=== PATIENT | female | born 1940 | race Caucasian/White ===

== ENCOUNTER 2019-03-30 14:52 | Emergency (ER) | payer MEDICARE, SELFPAY ==
[2019-03-30] VITALS (8 sets, daily range): BP systolic 94–133; BP diastolic 43–86; PULSE 70–98; RESP 12–23; TEMP 37.2; O2SAT 94–99
--- NOTE | ~2019-03-30 | XR_ITS ---
EXAMINATION: XR chest 2V DATE: 03/30/2019 15:44 INDICATION: Shortness of breath and cough. TECHNIQUE: Frontal and lateral views of the chest were obtained. COMPARISON: Chest 2 views 12/21/2018, CT abdomen and pelvis 03/10/2019 FINDINGS: There is mild scarring at left lung apex. There is mild atelectasis in the lower lung zones . No pleural effusion or pneumothorax. The heart size is normal. There are surgical clips in right ax illa. IMPRESSION: 1. Mild atelectasis in the lower lung zones and mild scarring at left lung apex. Reviewed, dictated and finalized at location A. T TECHNICIAN IMPRESSION: 1. Mild atelectasis in the lower lung zones and mild scarring at left lung apex .
--- NOTE | 2019-03-30 15:11 | ED.URI ---
HPI - URI/Sore Throat General Chief Complaint: Upper Respiratory Infection Stated Complaint: COUGH [id number] Time Seen by Provider: 03/30/19 15:11 Source: patient Mode of arrival: ambulatory Limitations: no limitations History of Present Illness HPI Narrative: A 78 y/o female presents to the ED with c/o a dry cough for 6 days. Pt took Tessalon Perles with no relief so she called her PCP who prescribed her antibiotics and Robitussin on Sunday (2 days ago). She reports rhinorrhea, CP when coughing, and a PMHx of asthma, but denies a fever and smoking. Pertinent past history: asthma Onset (ago): day(s) (6) Description of mucous: other (none) Related Data Home Medications Medication Instructions Recorded Confirmed albuterol sulfate 90 mcg/actuation 1 puff INHALATION Q4H PRN 01/20/19 aerosol inhaler cetirizine 10 mg tablet 10 mg PO DAILY 01/20/19 glycopyrrolate 9 mcg-formoterol 2 puff INHALATION BID 01/20/19 4.8 mcg HFA aerosol inhaler methylcellulose (laxative) 500 mg 500 mg PO DAILY 01/20/19 tablet cyanocobalamin (vitamin B-12) 1,000 mcg PO DAILY 01/21/19 1,000 mcg capsule exemestane 25 mg tablet 25 mg PO DAILY 01/21/19 gabapentin 100 mg capsule 300 mg PO TID 01/21/19 multivitamin 1 cap PO DAILY 01/21/19 omega-3 fatty acids 1,000 mg 2,000 mg PO DAILY cap 02/28/19 capsule cholecalciferol (vitamin D3) 50 mcg PO DAILY 03/30/19 Allergies Allergy/AdvReac Type Severity Reaction Status Date / Time azithromycin Allergy Intermediate Rash Verified 03/30/19 15:15 baclofen Allergy Intermediate Rash Verified 03/30/19 15:15 ciprofloxacin Allergy Intermediate Rash Verified 03/30/19 15:45 Penicillins Allergy Intermediate Rash Verified 03/30/19 15:15 propoxyphene Allergy Intermediate Rash Verified 03/30/19 15:15 Sjcfibd-Wji-Urn Reductase Allergy Intermediate Rash Verified 03/30/19 15:45 Inhibitor COCONUT AdvReac Mild GAGS Uncoded 03/30/19 15:15 Review of Systems Review of Systems: Narrative: Constitutional: Negative for fever and chills. HENT: Positive for rhinorrhea. Negative for congestion. Eyes: Negative for blurred vision. Respiratory: Positive for dry cough. Negative for shortness of breath. Cardiovascular: Positive for chest pain when coughing. Gastrointestinal: Negative for nausea, vomiting, abdominal pain and diarrhea. Genitourinary: Negative for dysuria and hematuria. Musculoskeletal: Negative for back pain and neck pain. Neurological: Negative for headaches or focal motor deficit. All systems reviewed & are unremarkable except as noted in HPI and below PMFSH Past Medical History Medical History (Updated 03/31/19 @ 00:00 by [facility]) Abnormal finding of blood chemistry, unspecified Asthma BMI 26.0-26.9,adult Bronchitis (12/19/18) Chronic abdominal pain Diarrhea Diverticulitis DJD (degenerative joint disease), multiple sites Dysuria Encounter for routine adult health examination with abnormal findings Follow up GERD (gastroesophageal reflux disease) Hiatal hernia History of breast cancer in female Hyperlipidemia Hypersomnia, idiopathic IBS (irritable bowel syndrome) Lymphedema Mild reactive airways disease On fci drug therapy Pain of right heel Tachycardia Vitamin B12 deficiency Vitamin D deficiency Surgical History Surgical History History of bilateral mastectomy Family History Family History Father Family history of gout Family history of lung cancer Patient's father is Malignant neoplasm of prostate Mother Hypertension Asthma Family history of Alzheimer's disease Other Family history of allergic disorder Family history of cardiovascular disease Social History Social History Smoking status: Never smoker Second hand tobacco smoke exposure: No Alcohol intake: never Gender identity (if
--- NOTE | 2019-03-30 15:14 | ECG_ITS ---
Measurements Intervals [place] Rate: 88 P: 33 AK: 131 QRS: -26 QRSD: 122 T: 53 QT: 353 QTc: 429 Interpretive Statements SINUS RHYTHM POSSIBLE LEFT ATRIAL ENLARGEMENT LEFT BUNDLE BRANCH BLOCK ABNORMAL ECG Electronically Signed On 03-30-2019 17:00:55 MAG[employer]IC [employer] IMAGING DIRECTOR by Onofre Dior D.O.
[2019-03-30] MEDS: ALBUTEROL SULFATE NEB 2.5 MG/0.5 ML INH INHALATION (15:25)
[2019-03-30] MEDS: IPRATROPIUM BR 0.02% INH SOLN 0.5 MG/2.5 ML VIAL INHALATION (15:25)
[2019-03-30 15:32] LABS: Basophils Percent Auto 0.5 % (0.2-1.2); Eosinophils Percent Auto 0.8 % (0-4.4); Hemoglobin 13.7 g/dL (12.0-15.0); Immature Granulocyte Absolute 0.01 K/mm3 (0.00-0.031); Immature Granulocyte Percent A 0.3 % (0-0.5); Lymphocytes Absolute Auto 0.72 K/mm3 (0.9-3.2); Mean Corpuscular HGB Conc 32.6 g/dl (32-36); Mean Corpuscular Hemoglobin 33.3 pg (26-34); Mean Corpuscular Volume 102.2 fl (80-100); Mean Platelet Volume 10.5 fl (7.4-10.4); Monocytes Absolute Auto 0.7 K/mm3 (0.1-0.6); Monocytes Percent Auto 16.3 % (2.6-8.5); Neutrophils Absolute Auto 2.6 K/mm3 (1.3-6.7); Neutrophils Percent Auto 64.1 % (45.5-73.1); Platelet Count Result 187 k/mm3 (150-375); Red Blood Count 4.11 M/mm3 (4.2-5.4); Red Cell Distribution Width 12.9 % (11.5-14.5)
[2019-03-30 15:45] LABS: Blood Urea Nitrogen 9 mg/dL (7-17); Carbon Dioxide 26 mmol/L (22-30); Chloride 99 mmol/L (98-107); Estimated CRCL calculation 42 ml/min; Estimated Glomerular Filt Rate > 60; Glucose 87 mg/dL (65-105); Potassium 4.1 mmol/L (3.4-5.0); Sodium 137 mmol/L (137-145)
[2019-03-30 15:56] LABS: Troponin I 0.013 ng/mL (0.000-0.034)
[2019-03-30] MEDS: SODIUM CHLORIDE 0.9% IV 1,000 ML 999 ML IV CONT (17:05)
== END 2019-03-30 20:00 | disposition home or self-care (01) ==
PROVIDERS: Emergency Provider Emergency Medicine; PCP Internal Medicine
DX: J06.9 Acute upper respiratory infection, unspecified (principal); J45.909 Unspecified asthma, uncomplicated; K21.9 Gastro-esophageal reflux disease without esophagitis; E78.5 Hyperlipidemia, unspecified; E53.8 Deficiency of other specified B group vitamins; Z85.3 Personal history of malignant neoplasm of breast; Z90.13 Acquired absence of bilateral breasts and nipples; E55.9 Vitamin D deficiency, unspecified; I44.7 Left bundle-branch block, unspecified; R94.31 Abnormal electrocardiogram [ECG] [EKG]
CPT/HCPCS: 36415; 71046; 80048; 84484; 85025; 87804; 93005; 94640; 96360; 96361; 99284; J7030

== ENCOUNTER 2019-04-30 09:00 | Outpatient (RCR) | payer MEDICARE, SELFPAY ==
--- NOTE | 2019-01-31 09:41 | PTOPEVAL ---
PHYSICAL THERAPY EVALUATION AND PLAN OF CARE 01-31-19 The PT evaluation was completed for the diagnosis of R trunk and UE lymphedema. Plan of treatment has been established for 2x/week for 4 weeks. Thank you for referring Mrs. Woods to [facility]. Please review, sign, date and return this plan of care LINDA. I agree with and certify that the following plan of care is medically necessary. Referring Physician Date Attending Provider: Dr. Leticia Segundo *PT Outpatient Evaluation Start: 01/31/19 08:24 Freq: Status: Active Protocol: Document 01/31/19 08:15 LEON (Rec: 01/31/19 09:13 LEON [email or web address]) Therapy Assessment Status Assessment Status Assessment Status Evaluation Outpatient Past Medical History Neurological History Hx Migraine Yes: history- have decreased to 1/few months Cardiovascular History Hx Cardiac Disorders No Significant History Respiratory History Hx Asthma Yes Hx Bronchitis Yes: just completed steroids Gastrointestinal History Hx Diverticulitis Yes: part of colon removed Hx Gall Bladder Disease Yes: gall bladder removed Hx Irritable Bowel Yes Genitourinary History Hx Urinary Tract Infection Yes: just completed meds Musculoskeletal History Hx Arthritis Yes: hands Hx Joint Replacement Yes: B TKR Hx Orthopedic Surgery Yes: L rot cuff repair Endocrine History Hx Endocrine Disorders No Significant History HEENT History Hx Other HEENT Disorders Yes: wear glasses Integumentary History Hx Shingles Yes: upper back- cont to have itching Evaluation Information Problem Diagnosis lymphedema of R chest wall Onset 6 months ago Subjective Information gradual increase in swelling Query Text:As Reported By Patient/ Family Prior Level of Function Activity Level (Last 3 Months) 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
--- NOTE | 2019-02-10 11:08 | PCPTNOTE ---
Patient called & cancelled scheduled appointment this date due to [weather ]
--- NOTE | 2019-02-27 11:00 | PTOPEVAL ---
PHYSICAL THERAPY RE-EVALUATION AND UPDATED PLAN OF CARE 02-27-2019 Mrs. Woods has received 8 Physical Therapy sessions, from January 31 to today. She has improved with: increased R shoulder flexion AROM, decreased circumferential measurement with 2 of the 3 and the 3rd is the same. Di continues to have pain over R shoulder and forearm with fibrosis and L anterior trunk; lateral trunk edema on R and L sides. Recommend continue PT 2x/week for 4 weeks. Continue to work on appropriate compression garments for her, continue to progress education and home exercises. And submitting her information for home intermittent compression unit. Thank you for referring Mrs. Woods to [facility] Please review, sign, date and return this plan of care LINDA. I agree with and certify that the following plan of care is medically necessary. Referring Physician Date Attending Provider: Dr. Leticia Segundo *PT Outpatient Re-Evaluation Document 02/27/19 10:00 LEON (Rec: 02/27/19 10:59 LEON [email or web address]) Re-Evaluation Information Problem Subjective Information Di reports: long sleeve Query Text:As Reported By Patient/ shirts still tight on R upper Family arm; have compression camisole but does not fit tight enough over upper trunk--to return for smaller size; have compression sleeve-is wearing more when using arm, not all time- not sure if it helps or not, does feel better when it is on; still have swelling over sides; is doing her shoulder exercises and self massage; Pain Assessment Pain Scale Pain Scale Used Numeric (1 - 10) Self Report Pain Assessment Right Arm(s) Reported Pain Level 0 Radicular Pain Location posterior R shoulder and L shoulder; very sore and tired like feeling Pain Frequency Acute Other Pain Description lateral R mid humerus pain Current Pain Intensity 0 Lowest Pain Intensity 0 Greatest Pain Intensity 4 Pain Level Goal 0 Interventions Used By Clinicians Taping Other Alleviating Interventions compression Additional Pain Comments kinesiotape strip over R lateral shoulder/humerus decr pain Pain Score Pain Score 0: Self Report Upper Extremity Range of Motion General Upper Extremity Range of Motion Reason Not Measured WNL/Left Gross Upper Extremity Range of Motion R shoulder flexion in standing Comments 130'; supine R shoulder ER- hand behind head, upper arm is
--- NOTE | 2019-02-27 13:00 | PCPTNOTE ---
discussed intermittent compression pump was discussed with pt; she signed consent and information was faxed to [facility] for authorization for home intermittent compression pump.
--- NOTE | 2019-03-05 09:30 | PCPTNOTE ---
pt called and canceled today's appt, due to being ill;
--- NOTE | 2019-03-07 13:36 | PCPTNOTE ---
measurements taken during today's treatment session: in standing: chest 84 cm; abdomen/belly button 88 cm;
--- NOTE | 2019-03-13 09:23 | PCPTNOTE ---
Pt called today and cancelled today's and tomorrow's appointment due to a flair up in her diverticulitis. Di stated she as going to contact her doctor.
--- NOTE | 2019-03-26 10:43 | PCPTNOTE ---
pt called and canceled today's reeval due to illness;
--- NOTE | 2019-04-09 12:36 | PTOPEVAL ---
PHYSICAL THERAPY RE-EVALUATION AND UPDATED PLAN OF CARE 04-09-2019 Mrs. Woods has received 13 PT sessions, from January 31 to today. She has called/canceled 3 appointments this reeval time frame, due to illness/ flu. She went to the ER due to flu, has completed 2 rounds of antibiotics and is not quite over it yet. Compared to the reevaluation on 02-27-2019: improved with: increased R shoulder flexion AROM; less tenderness over R UE, decreased measurements of all circumferential measurements 1-3 cm; compared to initial eval, R UE measurement has decreased by 8.6 cm; the compression camisole she has fits appropriately and her information has been forwarded for insurance authorization for home intermittent compression pump Her pain rating has increased of R shoulder and trunk- no longer has times of 0/10 rating, always tender, sore and she continues to have edema over R and L lateral-upper trunk, with firmness of tissue over R anterior-proximal forearm. PT is recommended to continue 0-2x/week for 3 weeks. She wants to try to continue on her own and be able to call if any concerns or return for additional sessions if needed. And to continue to complete the process for obtaining a home intermittent compression unit. Thank you for referring this patient to [facility]. Please review, sign, date and return this plan of care [facility]. I agree with and certify that the following plan of care is medically necessary. Referring Physician Date Attending Provider: Dr. 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; top of R arm is about the same, sleeves do fit little better; have compression bra and camisole, wearing them; have been doing self massage; is interested in the compression pump; wants to try to stop therapy and see how she does doing self massage and getting the pump to manage her swelling; Pain Assessment Pain Scale Pain Scale Used Numeric (1 - 10) Self Report Pain Assessment Left Shoulder(s) Reported Pain Level 3 Pain Description Tender on Palpation Radicular Pain Location upper lateral trunk tender to touch Current Pain Intensity 3 Lowest Pain Intensity 0 Greatest Pain Intensity 3 Right Arm(s) Reported Pain Level 3 Other Pain Description tender over trunk and top arm Current Pain Intensity 3 Lowest Pain Intensity 3 Gaurang
--- NOTE | 2019-04-09 13:12 | PCPTNOTE ---
pt's reevaluation was faxed to [facility] Medical rep Columba Monge, for authorization with her insurance for home intermittent compression pump. Pt has signed a release in the past, and agrees to her info being faxed.
--- NOTE | 2019-04-30 09:46 | PTOPEVAL ---
PHYSICAL THERAPY DISCHARGE 04-30-2019 Mrs. Woods has received 14 Physical Therapy sessions, from January 31 to today for the diagnosis of s/p B mastectomy and lymphedema. Education has been completed for self manual therapy, lymphedema skin care, use of compression garments--camisole and lateral trunk swell pads and UE exercises. She is receptive to the education and performing home exercises and self massage. During the therapy sessions, she has had multiple illness--cold/flu, sinus and recently in the hospital for diverticulitis, just completed her antibiotics today. Compared to the last reevaluation: her pain rating for L shoulder is the same/ R shoulder has increased slightly, with pain over deltoid area; AROM of R shoulder has decreased slightly and L is about the same; circumferential measurements of trunk: arm pit increased by 1.5 cm, breast incision decreased by 2 cm and waist is the same; she continues to have tenderness and edema over R and L upper-lateral trunk and lateral scapular areas. She is still awaiting approval for a home intermittent compression pump. This would be of benefit to her, to help decrease the lateral trunk and scapular edema. She is doing her home exercises and self massage, without an improvement. Thank you for referring Di to [facility]Note 2[facility] Please review, sign, date and return this discharge LINDA. I agree with and certify that the following plan of care is medically necessary. Referring Physician Date Attending Provider: Dr. 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
== END 2019-05-01 08:10 | disposition home or self-care (01) ==
LOC: ANHPT 09:00
PROVIDERS: PCP Internal Medicine
DX: I89.0 Lymphedema, not elsewhere classified (principal); C50.011 Malignant neoplasm of nipple and areola, right female breast; C50.012 Malignant neoplasm of nipple and areola, left female breast; Z17.0 Estrogen receptor positive status [ER+]; K57.30 Diverticulosis of large intestine without perforation or abscess without bleeding
CPT/HCPCS: 36415; 80053; 80061; 82542; 82607; 82746; 83036; 85025; 97110; 97140; 97161

== ENCOUNTER 2019-07-03 15:12 | Outpatient (CLI) | payer MEDICARE, SELFPAY ==
[2019-07-03 16:07] LABS: Blood Urea Nitrogen 13 mg/dL (7-17); Carbon Dioxide 29 mmol/L (22-30); Chloride 105 mmol/L (98-107); Cholesterol 227 mg/dL (0-200); Estimated Glomerular Filt Rate > 60; Glucose 85 mg/dL (65-105); HDL Direct 54 mg/dL; Sodium 140 mmol/L (137-145); Triglycerides 280 mg/dL (<150)
[2019-07-03 16:17] LABS: LDL Cholesterol Direct 134 mg/dL
[2019-07-03 16:42] LABS: Hemoglobin A1C 5.5 % (<5.7)
[2019-07-03 17:40] LABS: Folic Acid > 20.0 ng/mL (2.76->20); Vitamin B12 > 1000.0 pg/mL (239-931)
[2019-07-07 12:50] LABS: Vitamin D 1,25 (OH)2 Total 72 pg/mL (18-72); Vitamin D2 1,25 (OH)2 <8 pg/mL; Vitamin D3 1,25 (OH)2 72 pg/mL
== END 2019-07-03 15:13 | disposition home or self-care (01) ==
PROVIDERS: PCP Internal Medicine; Visit Provider Internal Medicine
DX: E55.9 Vitamin D deficiency, unspecified (principal); Z79.899 Other long term (current) drug therapy; E53.8 Deficiency of other specified B group vitamins; E78.2 Mixed hyperlipidemia
CPT/HCPCS: 36415; 80048; 80061; 82607; 82652; 82746; 83036

== ENCOUNTER 2019-07-07 15:15 | Outpatient (CLI) | payer MEDICARE, SELFPAY ==
--- NOTE | ~2019-07-07 | XR_ITS ---
EXAMINATION: XR chest 2V EXAM DATE: 07/07/2019 16:23 INDICATION: Difficulty breathing, cough. TECHNIQUE: Frontal and lateral projections of the chest obtained and reviewed. Comparison is made to prior examination from 03/30/2019. FINDINGS: The lungs are clear. There are no pleural effusions. The cardiomediastinal silhouette is within normal limits. There is no pneumothorax suspected. Right axillary surgical clips. There are mild bony degenerative changes. There is no significant interval change. IMPRESSION: No acute cardiopulmonary findings. Reviewed, dictated and finalized at location A.
[2019-07-07 16:07] LABS: Basophils Percent Auto 0.4 % (0.2-1.2); Eosinophils Absolute Auto 0.1 K/mm3 (0-0.3); Eosinophils Percent Auto 1.1 % (0-4.4); Hematocrit 40.6 % (37.0-47.0); Immature Granulocyte Absolute 0.01 K/mm3 (0.00-0.031); Immature Granulocyte Percent A 0.2 % (0-0.5); Lymphocytes Absolute Auto 1.24 K/mm3 (0.9-3.2); Lymphocytes Percent Auto 23.3 % (18.3-44.2); Mean Corpuscular Hemoglobin 33.5 pg (26-34); Mean Corpuscular Volume 104.6 fl (80-100); Mean Platelet Volume 10.2 fl (7.4-10.4); Monocytes Absolute Auto 0.6 K/mm3 (0.1-0.6); Monocytes Percent Auto 11.8 % (2.6-8.5); Neutrophils Absolute Auto 3.4 K/mm3 (1.3-6.7); Neutrophils Percent Auto 63.2 % (45.5-73.1); Platelet Count Result 240 k/mm3 (150-375); Red Blood Count 3.88 M/mm3 (4.2-5.4); Red Cell Distribution Width 13.8 % (11.5-14.5); White Blood Count 5.3 K/mm3 (4.5-10.0)
[2019-07-07 16:22] LABS: Influenza Control Positive
== END 2019-07-07 15:16 | disposition home or self-care (01) ==
PROVIDERS: PCP Internal Medicine; Visit Provider Internal Medicine
DX: R05 Cough (principal); R68.89 Other general symptoms and signs; R69 Illness, unspecified
CPT/HCPCS: 36415; 71046; 85025; 87804

== ENCOUNTER 2019-07-28 14:01 | Outpatient (CLI) | payer MEDICARE, SELFPAY | END 2019-07-28 14:02 | disposition home or self-care (01) | PROVIDERS: PCP Internal Medicine; Visit Provider Nurse Practitioner Family | DX: J30.1 Allergic rhinitis due to pollen (principal); J84.9 Interstitial pulmonary disease, unspecified | CPT/HCPCS: 36415; 82785; 86003; 86331; 86606; 86609 ==

== ENCOUNTER 2019-08-12 08:45 | Outpatient (CLI) | payer MEDICARE, SELFPAY ==
--- NOTE | 2019-08-12 09:23 | ECHO_ITS ---
Patient Info Name: Di Woods Age: 78 years : 1940 Gender: Female Ht: 60 in Wt: 135 lbs BSA: 1.63 m2 HR: 85 bpm BP: 148 / 79 mmHg Technical Quality: Good Exam Date: 08/12/2019 9:32 AM Exam Location: [facility] Patient Status: Outpatient Admit Date: 08/12/2019 Staff Ordering Physician: Jamie Bush APRN Document Reviewer: Brittany Camargo RDCS Attending Provider: Jamie Bush APRN Referring Physician: Eleazar SERVIN; Exam Type: CA echo doppler color flow Study Info Indications R06.02 - Shortness of breath Complete two-dimensional, color flow and Doppler transthoracic echocardiogram is performed. Summary 1. Left ventricular chamber dimension is normal. 2. Left ventricular systolic function is normal, estimated at 65-70%. 3. The left ventricular diastolic function is grade I diastolic dysfunction. 4. E/e' 16 is elevated. 5. Global longitudinal strain is mildly abnormal at -16.1%. 6. There is mild aortic valve sclerosis. 7. There is mild mitral valve regurgitation. 8. There is trace tricuspid valve regurgitation. 9. No pulmonary hypertension, estimated pulmonary arterial systolic pressure is 37 mmHg. Left Ventricle E/e' 16 is elevated. Global longitudinal strain is mildly abnormal at -16.1%. Left ventricular chamber dimension is normal. Left ventricular systolic function is normal, estimated at 65-70%. The left ventricular diastolic function is grade I diastolic dysfunction. Right Ventricle Right ventricular chamber dimension is normal. Right ventricular systolic function is normal. Left Atria Left atrial chamber dimension is normal. Right Atria Right atrial chamber dimension is normal. Aortic Valve The aortic valve is trileaflet. There is mild aortic valve sclerosis. There is no aortic valve stenosis. There is no aortic valve regurgitation. Pulmonic Valve There is no pulmonic regurgitation. Mitral Valve There is no mitral valve stenosis. There is mild mitral valve regurgitation. Tricuspid Valve There is trace tricuspid valve regurgitation. No pulmonary hypertension, estimated pulmonary arterial systolic pressure is 37 mmHg. Pericardium/Pleural There is no pericardial effusion. Inferior Vena Cava Normal inferior vena cava with >50% collapse upon inspiration consistent with normal right atrial pressure, 5 mmHg. Aorta The aortic root size at the sinus of Valsalva is normal. Left Ventricular Outflow Tract Name Value Normal LVOT 2D LVOT Diameter 1.9 cm LVOT Doppler LVOT Peak Gradient 6 mmHg LVOT Mean Gradient 3 mmHg LVOT VTI 25 cm LVOT VTI/AV VTI Ratio 0.9 LVOT Stroke Volume 71 ml LVOT CO 4.9 l/min LVOT CI 3.0 l/min/m2 Pulmonic Valve Name Value Normal
--- NOTE | 2019-08-13 13:57 | WPDPFTINT ---
PFT Interpretation PFT Interpretation: DOS: 08/12/2019 REQUESTING: Jamie Bush NP REASON FOR TESTING: Shortness of breath PULMONARY FUNCTION TESTS Results are reproducible. Spirometry: FEV1 121%, FVC 96%, FEV1% is 85%, all are normal. There is a minimal response to bronchodilator, 11% increased in FEV1% and 17% in [id number]%.. Lung volumes: TLC 106%, RV 112%, normal. RV/TLC is 45%, increased consistent with air trapping. Diffusion: DLCO 101%, normal. DLCO/VA is increased, 144%. Flow volume loop: Normal. IMPRESSION: Normal spirometry, mild air trapping which is new, and normal DLCO. Increase in flows with bronchodilator suggests airway responsiveness to bronchodilator, and increased DLCO/VA suggests asthma, polycythemia, or pulmonary hemorrhage. This PFT is compared to 07/20/2016 with similar results. FEV1 was 109%, now 121%; RV/TLC is higher now showing air trapping, DLCO/VA is higher 131% compared to 144% now. Katherine Wilson MD
--- NOTE | 2019-08-13 14:12 | WPDSIXMINUTE ---
Six Minute Walk Six Minute Walk: DOS: 08/12/2019 REQUESTING: Jamie Bush NP REASON FOR TESTING: shortness of breath SIX MINUTE WALK This test was conducted per ATS guidelines. Initial saturation was 97%, and pulse was 90. She walked without stopping to rest, completed 1100 feet / 335 meters. Saturation varied from 91% to 99%, and heart rate ranged form 84 to 105. This test was conducted on room air. IMPRESSION: Mild desaturation of 6% without rosanna hypoxemia. No supplemental oxygen is indicated with exertion. Distance walked is adequate for age.
== END 2019-08-12 08:46 | disposition home or self-care (01) ==
LOC: ANHPFT 08:46
PROVIDERS: PCP Internal Medicine; Visit Provider Nurse Practitioner Family
DX: R06.02 Shortness of breath (principal)
CPT/HCPCS: 93306; 94060; 94618; 94726; 94729

== ENCOUNTER 2019-08-18 10:00 | Outpatient (RCR) | payer MEDICARE, SELFPAY ==
[2019-07-28 10:00] VITALS: BP_SYST 85
--- NOTE | 2019-07-28 11:30 | PTOPEVAL ---
PHYSICAL THERAPY EVALUATION AND PLAN OF CARE 07-28-2019 The PT evaluation was completed and the plan of treatment is scheduled for 2x/week for 3 weeks. The original order states R UE lymphedema; the plan of treatment is for her R shoulder pain and limited ROM. Thank you for referring Di Woods to [facility]. Please review, sign, date and return this plan of care LINDA. I agree with and certify that the following plan of care is medically necessary. Referring Physician Date Attending Provider: Leticia Segundo MD *PT Outpatient Evaluation Start: 07/28/19 10:11 Document 07/28/19 10:00 LEON (Rec: 07/28/19 11:30 LEON [id number]) Therapy Assessment Status Assessment Status Assessment Status Evaluation Outpatient Past Medical History Past Medical History Source of Past Medical History Patient Neurological History Hx Migraine Yes: history- have decreased to 1/few months Cardiovascular History Hx Cardiac Disorders No Significant History Respiratory History Hx Asthma Yes Hx Bronchitis Yes: to see Dr about- SOB Gastrointestinal History Hx Diverticulitis Yes: part of colon removed Hx Gall Bladder Disease Yes: gall bladder removed Hx Irritable Bowel Yes: having troubles- in August to see surgeon Genitourinary History Hx Urinary Tract Infection Yes Musculoskeletal History Hx Arthritis Yes: hands Hx Joint Replacement Yes: B TKR Hx Orthopedic Surgery Yes: L rot cuff repair Endocrine History Hx Endocrine Disorders No Significant History HEENT History Hx Other HEENT Disorders Yes: wear glasses Integumentary History Hx Shingles Yes: upper back- cont to have itching Hx Other Skin Disorders Yes: have itching/rash on B forearms- to see dr about Other History Hx Cancer Yes: B mastectomy due to cancer Hx Other Surgeries Yes: lymphedema trunk and R UE -have home compression pump Evaluation Information Problem Diagnosis R UE lymphedema/ R shoulder pain Onset mid April 2019 Additional Evaluation Detail previous PT here Jan 2019 to April 30 2019, for lymphedema trunk and R breast; has home intermittent compression pump using ~5x/week; have not been wearing compression camisole or bra since beginning of June, due to being at home and it is not comfortabl
[2019-08-18 10:00] VITALS: BP_SYST 110
--- NOTE | 2019-08-18 10:56 | PTOPEVAL ---
PHYSICAL THERAPY REEVALUATION REPORT 08-18-2019 Mrs. Woods has received 7 PT sessions, from July 27 to today, for the diagnosis of R shoulder pain and lymphedema. Compared to the initial evaluation: shoulder pain rating has improved from 6-10/10 to 7-8/10; leukotape and ice help to manage her pain; R shoulder active and AAROM have improved with flexion and ER, and AAROM of abduction, active IR has decreased slightly; she is independent with her home exercises and has improved postural awareness. She also has cervical tightness and pain, with decreased cervical rotation to the R, with spasms over R upper cervical paraspinals and upper traps. Di is to call for a follow up with . If PT is to continue, please issue her a new script. Thank you for referring Di Woods to [facility]. Please review, sign, date and return this plan of care LINDA. I agree with and certify that the following plan of care is medically necessary. Referring Physician Date Attending Provider: Leticia Segundo MD Document 08/18/19 10:00 LEON (Rec: 08/18/19 10:52 LEON [id number]) Assessment Status Re-evaluation Problem Subjective Information Di reports: shoulder has Query Text:As Reported By Patient/ improved, am able to move the Family shoulder more, but still remains painful; doing exercises at home- yellow band in doorway and stretching; taping helps her shoulder; is using her arm to do home chores, but pain increases. She has an appointment soon with the pain management dr for her low back pain. Pain Assessment Timing of Pain Assessment Timing of Pain Assessment Assessment Pain Scale Pain Scale Used Numeric (1 - 10) Self Report Pain Assessment Right Shoulder(s) Reported Pain Level 8 Pain Description Sharp,Soreness,Tender on Palpation,Tightness Radicular Pain Location sharp pain over proximal triceps; more catching when moving arm Pain Frequency Chronic Other Pain Description ant,lat and post GH joint; lateral humerus Tender-like punched in arm; Lowest Pain Intensity 7 Greatest Pain Intensity 8 Pain Aggravating Factors Exercise/Activity,Lifting Pain Behaviors Grimacing,Guarding Pain Relief Interventions Used By Heat,Ice,Inactivity/Rest Patient Interventions Used By Clinicians Taping Other Alleviating Interventions heat over neck and ice over shoulder; Additional Pain Comments can lie on R side, if in correct spot, 15 min Pain Score
--- NOTE | 2019-09-15 16:30 | PCPTNOTE ---
PHYSICAL THERAPY DISCHARGE 09-15-2019 Attending Provider: Leticia Segundo MD Patient:Di Woods Date of :1940 Mrs. Woods has not returned for any further treatments since the reevaluation on 08/18/2019, therefore she will be discharged at this time. Refer to the reevaluation for her status at the last session. Thank you for referring Di to [facility]. Please review, sign, date and return this discharge summary LINDA. I have been updated about the patient's current status and I agree with discharge from the above service at this time. Referring Physician Date
== END 2019-09-16 13:06 | disposition home or self-care (01) ==
LOC: ANHPT 10:00
PROVIDERS: PCP Internal Medicine; Visit Provider Internal Medicine Medical Oncology
DX: I89.0 Lymphedema, not elsewhere classified (principal); C50.011 Malignant neoplasm of nipple and areola, right female breast
CPT/HCPCS: 97110; 97140; 97162

== ENCOUNTER 2019-09-30 12:30 | Outpatient (RCR) | payer MEDICARE, SELFPAY ==
--- NOTE | 2019-09-16 16:05 | PTOPEVAL ---
PHYSICAL THERAPY EVALUATION AND PLAN OF CARE Thank you for referring Di Woods to [facility]. I recommend Di participate in PT 1-2x/week for 2 weeks prior to colon surgery. Please review, sign, date and return this plan of care LINDA. I agree with and certify that the following plan of care is medically necessary. Referring Physician Date Evaluation Outpatient Past Medical History Neurological History Hx Migraine Yes: history- have decreased to 1/few months Cardiovascular History Hx Cardiac Disorders No Significant History Respiratory History Hx Asthma Yes Hx Bronchitis Yes: to see Dr about- SOB Gastrointestinal History Hx Diverticulitis Yes: part of colon removed Hx Gall Bladder Disease Yes: gall bladder removed Hx Irritable Bowel Yes: having troubles- in August to see surgeon Genitourinary History Hx Urinary Tract Infection Yes Musculoskeletal History Hx Arthritis Yes: hands Hx Joint Replacement Yes: B TKR Hx Orthopedic Surgery Yes: L rot cuff repair Endocrine History Hx Endocrine Disorders No Significant History HEENT History Hx Other HEENT Disorders Yes: wear glasses Integumentary History Hx Shingles Yes: upper back- cont to have itching Hx Other Skin Disorders Yes: have itching/rash on B forearms- to see dr about Other History Hx Cancer Yes: B mastectomy due to cancer Hx Other Surgeries Yes: lymphedema trunk and R UE -have home compression pump Evaluation Information Problem Diagnosis low back pain, L5 DDD Onset 1 year Subjective Information Pain is in low back, more on Query Text:As Reported By Patient/ the left and runs down leg and Family across thigh. These symptoms are chronic and have successfully been managed with injections. She has been experiencing these symptoms again for about a year. she is scheduled again tomorrow for injections again. Self Report Pain Assessment Left Spine, Lumbar Reported Pain Level 5 Pain Description Aching,Soreness Lowest Pain Intensity 5 Greatest Pain Intensity 8 Pain Aggravating Factors Bending,Stair Climbing,Walking Lumbar ROM Lumbar Flexion Active Ankle Lumbar Lateral Flexion Right (0-40) 10 Gross Lower Extremity Range of Motion very limited bila
--- NOTE | 2019-09-30 13:20 | PTOPEVAL ---
PHYSICAL THERAPY PLAN OF CARE UPDATE AND PROGRESS NOTE Thank you for referring Di Woods to [facility]. Di's care is on hold until released following bowel surgery. Please review, sign, date and return this plan of care LINDA. I agree with and certify that the following plan of care is medically necessary. Referring Physician Date Progress Diagnosis low back pain, L5 DDD Onset 1 year Subjective Information Symptoms are no better than Query Text:As Reported By Patient/ start of therapy. She is Family having colonoscopy tomorrow and bowel resection for diverticulitis on . Possible some symptoms may resolve with surgery (same side involvement). Self Report Pain Assessment Left Spine, Lumbar Reported Pain Level 7 Pain Description Aching,Heavy,Soreness Pain Frequency Continuous Pain Aggravating Factors Changing Position,Exercise/ Activity,Walking Additional Pain Comments pt reports pain in inestines was so bad last nigh almost went to the ER Pain Score Pain Score 7: Self Report Additional Pain Score Comments after rx reduced to 4/10. Feels looser. Cervical and Lumbar ROM Lumbar ROM Lumbar Flexion Active Ankle Query Text:Hands to: Lumbar Lateral Flexion Right (0-40) 12 Query Text:Active in Degrees Lateral Rotation Right (0-45) 25 Query Text:Active in Degrees Lateral Rotation Left (0-45) 25 Query Text:Active in Degrees Lower Extremity Muscle Strength Testing Hip Strength Bilateral Hip Flexion Strength 4+ Good + Hip Extension Strength 4- Good - Hip Abduction Strength 4 Good Hip Adduction Strength 4 Good Knee Strength Bilateral Knee Flexion Strength 4+ Good + Knee Extension Strength 4+ Good + Palpation tight fascia along left ITB and thigh and knee; trigger points noted to left glute med PT Clinical Summary We will hold Di's chart at this time. She is having bowel resection surgery on 10/01 . We will restart therapy for low back pain once she is released from having colon surgery. At this time, her quality of movement is improvement, but symptoms
--- NOTE | 2019-11-11 17:51 | PCPTNOTE ---
PHYSICAL THERAPY DISCHARGE NOTE Patient:Di Woods Date of :1940 Patient has not returned for any further treatments since 09/30/2019 as at that time she was preparing for a procedure. If she was cleared after the procedure, she was to return for further therapy. We have not had communication from Di in over 30days, therefore she will be discharged at this time. Thank you for referring this patient to [facility]. Please review, sign, date and return this discharge summary LINDA. I have been updated about the patient's current status and I agree with discharge from the above service at this time. Referring Physician Date
== END 2019-11-12 11:57 | disposition home or self-care (01) ==
LOC: ANHPT 12:30
PROVIDERS: PCP Internal Medicine
DX: M54.5 Low back pain (principal); M25.552 Pain in left hip
CPT/HCPCS: 97110; 97140; 97162

== ENCOUNTER 2019-10-14 14:14 | Outpatient (CLI) | payer MEDICARE, SELFPAY ==
[2019-10-14 14:35] LABS: Basophils Percent Auto 0.6 % (0.2-1.2); Eosinophils Absolute Auto 0.3 K/mm3 (0-0.3); Eosinophils Percent Auto 3.9 % (0-4.4); Hematocrit 31.8 % (37.0-47.0); Hemoglobin 10.5 g/dL (12.0-15.0); Immature Granulocyte Absolute 0.02 K/mm3 (0.00-0.031); Immature Granulocyte Percent A 0.3 % (0-0.5); Immature Platelet Fraction Pct 4.8 % (0.9-11.2); Lymphocytes Absolute Auto 1.03 K/mm3 (0.9-3.2); Mean Corpuscular Hemoglobin 33.5 pg (26-34); Mean Corpuscular Volume 101.6 fl (80-100); Mean Platelet Volume 10.4 fl (7.4-10.4); Monocytes Absolute Auto 0.7 K/mm3 (0.1-0.6); Monocytes Percent Auto 10.6 % (2.6-8.5); Neutrophils Absolute Auto 4.8 K/mm3 (1.3-6.7); Neutrophils Percent Auto 69.6 % (45.5-73.1); Platelet Count Result 519 k/mm3 (150-375); Red Blood Count 3.13 M/mm3 (4.2-5.4); Red Cell Distribution Width 12.8 % (11.5-14.5); White Blood Count 6.9 K/mm3 (4.5-10.0)
== END 2019-10-14 14:15 | disposition home or self-care (01) ==
PROVIDERS: PCP Internal Medicine
DX: R10.9 Unspecified abdominal pain (principal); G89.18 Other acute postprocedural pain; K57.92 Diverticulitis of intestine, part unspecified, without perforation or abscess without bleeding
CPT/HCPCS: 36415; 85025; 85055

== ENCOUNTER 2019-10-28 11:33 | Outpatient (CLI) | payer MEDICARE, SELFPAY ==
[2019-10-28 12:36] LABS: Iron 125 ug/dL (37-170)
[2019-10-28 12:45] LABS: Percent Iron Saturation 38 % (20-50)
[2019-10-28 13:30] LABS: Folic Acid > 20.0 ng/mL (2.76->20)
== END 2019-10-28 11:34 | disposition home or self-care (01) ==
LOC: ANHLAB 11:36
PROVIDERS: PCP Internal Medicine; Visit Provider Internal Medicine
DX: D64.9 Anemia, unspecified (principal); E53.8 Deficiency of other specified B group vitamins
CPT/HCPCS: 36415; 82607; 82728; 82746; 83540; 83550

== ENCOUNTER 2020-02-05 19:29 | Emergency (ER) | payer MEDICARE, SELFPAY ==
--- NOTE | ~2020-02-05 | CT_ITS ---
EXAMINATION: CT brain wo con INDICATION: Headache and dizziness COMPARISON: None TECHNIQUE: Standard unenhanced head CT. The dose-length product (DLP) was 605.33 mGy-cm. The mA was a djusted according to patient size. Iterative reconstruction technique was employed. FINDINGS: There is no acute intraparenchymal hemorrhage. No evidence of mass lesion. No evidence of a cute infarction. 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 There is mild periventricular and lemons bcortical hypodensity probably related to small vessel ischemic disease. There is mild prominence of the sulci and ventricles related to cerebral atrophy. Intracranial calcified cerebral atherosclerosis is noted. There are no extra-axial collections. There is no mass effect or midline shift. The orbits and soft tissues are unremarkable. There is mild mucosal thickening of the paranasal sinuses. IMPRESSION: 1. No acute intracranial abnormality. 2. Age related findings. Reviewed, dictated and finalized at location A. ERVATION WORKER
[2020-02-05 19:31] VITALS: BP 144/83; PULSE 96; RESP 20; TEMP 35.2; O2SAT 98
--- NOTE | 2020-02-05 19:43 | ED.DIZZY ---
HPI - Dizziness General Chief Complaint: Dizziness Stated Complaint: dizzy Time Seen by Provider: 02/05/20 19:43 History of Present Illness HPI Narrative: 79 yo female w/ h/o htn, diverticulitis, asthma, IBS, Diverticulitis presents to the ED for dizziness. She reports that she has had 3 episodes over the past week. Today she says she was just looking at her phone when there were suddenly 3 of them. She also reports feeling unsteady on her feet. Additionally there is a sensation that something is pulling on the back of her head. She reports diarrhea and abdominal pain, which is not unusual. Related Data Home Medications Medication Instructions Recorded Confirmed cetirizine 10 mg tablet 10 mg PO DAILY 01/20/19 01/19/20 glycopyrrolate 9 mcg-formoterol 2 puff INHALATION BID 01/20/19 01/19/20 4.8 mcg HFA aerosol inhaler methylcellulose (laxative) 500 mg 500 mg PO DAILY 01/20/19 01/19/20 tablet cyanocobalamin (vitamin B-12) 1,000 mcg PO DAILY 01/21/19 01/19/20 1,000 mcg capsule exemestane 25 mg tablet 25 mg PO DAILY 01/21/19 01/19/20 multivitamin 1 cap PO DAILY 01/21/19 01/19/20 omega-3 fatty acids 1,000 mg 2,000 mg PO DAILY cap 02/28/19 01/19/20 capsule cholecalciferol (vitamin D3) 50 mcg PO DAILY 03/30/19 01/19/20 nortriptyline 10 mg capsule 10 mg PO DAILY 01/08/20 01/19/20 acetaminophen [Tylenol Extra 500 mg PO QID PRN 02/05/20 Strength] sennosides [Senna Lax] 8.6 mg PO BID PRN 02/05/20 Allergies Allergy/AdvReac Type Severity Reaction Status Date / Time azithromycin Allergy Intermediate Rash Verified 02/05/20 19:51 baclofen Allergy Intermediate Rash Verified 02/05/20 19:51 Penicillins Allergy Intermediate Rash Verified 02/05/20 19:51 propoxyphene Allergy Intermediate Rash Verified 02/05/20 19:51 Okdpeao-Uyg-Vdp Reductase Allergy Intermediate Rash Verified 02/05/20 19:51 Inhibitor ibuprofen AdvReac Gastrointestinal Verified 02/05/20 19:51 Upset COCONUT AdvReac Mild GAGS Uncoded 02/05/20 19:36 Review of Systems Review of Systems: All systems reviewed & are unremarkable except as noted in HPI and below Constitutional: Constitutional: Denies fever(s) and Denies weakness ENT: Reports dizziness and Denies sore throat Cardiovascular: Cardiovascular: Denies chest pain Respiratory: Respiratory: Denies dyspnea Gastrointestinal: Gastrointestinal: Reports abdominal pain, Reports diarrhea, Denies nausea and Denies vomiting Genitourinary: Genitourinary: Denies hematuria and Denies dysuria Musculoskeletal: Musculoskeletal: Denies back pain Neurologic: Reports dizziness, Denies syncope, Reports headache(s) and Denies numbness PMFSH Past Medical History Medical History Abdominal pain Abnormal finding of blood chemistry, unspecified Asthma Back pain BMI 24.0-24.9, adult BMI 26.0-26.9,adult Bronchitis (12/19/18) Chronic abdominal pain Cough Diarrhea Diverticulitis DJD (degenerative joint disease), multiple sites Dysuria Encounter for routine adult health examination with abnormal findings Follow up GERD (gastroesophageal reflux disease) Hiatal hernia History of breast cancer in female Hx of breast cancer Hyperlipidemia Hypersomnia, idiopathic IBS (irritable bowel syndrome) Intercostal muscle pain Left-sided chest wall pain Lymphedema Mild reactive airways disease Neuropathy 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
--- NOTE | 2020-02-05 19:50 | ECG_ITS ---
Measurements Intervals [place] Rate: 83 P: 9 NV: 129 QRS: -11 QRSD: 126 T: 82 QT: 371 QTc: 438 Interpretive Statements SINUS RHYTHM LEFT BUNDLE BRANCH BLOCK BASELINE ARTIFACT- I, III, AVL, AVF ABNORMAL ECG Electronically Signed On 02-06-2020 6:55:47 FLOOR MOLDER by Onofre Dior D.O.
--- NOTE | 2020-02-05 20:35 | PC.NURSE ---
MD at bedside assessing patient for a IV line
[2020-02-05 21:27] LABS: Add Urine Microscopic? YES; Appearance Urine Clear (Clear); Bacteria Urine Trace /hpf; Bilirubin Urine Negative (Negative); Blood Urine Negative (Negative); Color Urine Straw (Yellow); Glucose Urine UA Negative (Negative); Ketones Urine Negative (Negative); Leukocyte Esterase Ur 2+ LEU/UL (Negative); Mucus Urine Rare /lpf; Nitrate Urine Negative (Negative); Protein Urine Negative (Negative); RBC Urine 0-2 /hpf (0-2); Specific Grav Ur 1.006 (1.001-1.035); Squamous Epithelial Cell Urine Occasional /hpf (Few); Urobilinogen Urine Negative mg/dL (<2.0); WBC Urine 51-75 /hpf
[2020-02-05 22:02] LABS: Basophils Percent Auto 0.4 % (0.2-1.2); Eosinophils Absolute Auto 0.1 K/mm3 (0-0.3); Eosinophils Percent Auto 1.2 % (0-4.4); Hemoglobin 14.3 g/dL (12.0-15.0); Immature Granulocyte Absolute 0.01 K/mm3 (0.00-0.031); Immature Granulocyte Percent A 0.2 % (0-0.5); Lymphocytes Absolute Auto 1.05 K/mm3 (0.9-3.2); Lymphocytes Percent Auto 20.7 % (18.3-44.2); Mean Corpuscular HGB Conc 33.3 g/dl (32-36); Mean Corpuscular Hemoglobin 33.6 pg (26-34); Mean Corpuscular Volume 101.2 fl (80-100); Mean Platelet Volume 9.4 fl (7.4-10.4); Monocytes Absolute Auto 0.4 K/mm3 (0.1-0.6); Monocytes Percent Auto 7.5 % (2.6-8.5); Neutrophils Absolute Auto 3.6 K/mm3 (1.3-6.7); Platelet Count Result 288 k/mm3 (150-375); Red Blood Count 4.25 M/mm3 (4.2-5.4); Red Cell Distribution Width 12.9 % (11.5-14.5); White Blood Count 5.1 K/mm3 (4.5-10.0)
[2020-02-05 22:14] LABS: Anion Gap 10 mmol/L (8-16); Blood Urea Nitrogen 15 mg/dL (7-17); Carbon Dioxide 31 mmol/L (22-30); Chloride 101 mmol/L (98-107); Estimated CRCL calculation 32 ml/min; Estimated Glomerular Filt Rate > 60; Glucose 109 mg/dL (65-105); Potassium 4.2 mmol/L (3.4-5.0); Sodium 142 mmol/L (137-145)
[2020-02-05] MEDS: SODIUM CHLORIDE 0.9% IV 500 ML 999 ML IV CONT (23:12)
[2020-02-06 00:06] VITALS: BP 148/80; PULSE 78; RESP 16; O2SAT 98
== END 2020-02-05 23:58 | disposition home or self-care (01) ==
PROVIDERS: Emergency Provider Emergency Medicine; PCP Internal Medicine
DX: R42 Dizziness and giddiness (principal); N30.00 Acute cystitis without hematuria; I10 Essential (primary) hypertension; K58.9 Irritable bowel syndrome, unspecified; J45.909 Unspecified asthma, uncomplicated; K21.9 Gastro-esophageal reflux disease without esophagitis; Z85.3 Personal history of malignant neoplasm of breast; E78.5 Hyperlipidemia, unspecified; G47.11 Idiopathic hypersomnia with long sleep time; G62.9 Polyneuropathy, unspecified; E53.8 Deficiency of other specified B group vitamins; E55.9 Vitamin D deficiency, unspecified; Z90.13 Acquired absence of bilateral breasts and nipples; I44.7 Left bundle-branch block, unspecified
CPT/HCPCS: 36415; 70450; 80048; 81001; 85025; 87077; 87086; 87088; 87186; 93005; 96365; 99284; J0696; J7040

== ENCOUNTER 2020-03-10 09:00 | Outpatient (RCR) | payer MEDICARE, SELFPAY ==
--- NOTE | 2020-01-21 15:51 | PTOPEVAL ---
PHYSICAL THERAPY EVALUATION Thank you for referring Di Woods to [facility].? Di was seen with a dx of left thoracic muscle pain/sprain. The patient is scheduled to be seen for therapy? 2x/week for 4 weeks. Please review, sign, date and return this plan of care LINDA. I agree with and certify that the following plan of care is medically necessary. Referring Physician Date Attending Provider: Low Alvarez MD *PT Outpatient Evaluation Start: 01/21/20 13:33 Freq: Status: Active Protocol: Document 01/21/20 13:33 MLV (Rec: 01/21/20 14:29 MLV [id number]) Therapy Assessment Status Assessment Status Evaluation Evaluation Information Problem Diagnosis left chest wall pain/possible sprain Onset 1 month Cause none Additional Evaluation Detail Patient reports having colon surgery recently due to pain from scar tissue (from multiple surgeries). The patient has had pain at left rib cage area pain without a rash for 1 month, with question for possible shingles . The patient questions if pain is from muscle or possible shingles. Subjective Information The patient had a mastectomy Query Text:As Reported By Patient/ in due to CA and Family reports being clear of CA now (no mets) Pain Assessment Timing of Pain Assessment Timing of Pain Assessment Pre-Treatment Pain Scale Pain Scale Used Numeric (1 - 10) Self Report Pain Assessment Left Chest Reported Pain Level 5 Pain Description Pulling,Sharp,Tender on Palpation Pain Frequency Continuous Other Pain Aggravating Factors left sidelying aggravates Pain Score Pain Score 5: Self Report Interventions Used Interventions Used By Clinicians Education,Exercise Pain Relief Interventions Used By Ice,Medication,Position Change Patient Cervical and Lumbar ROM Lumbar ROM Lumbar Flexion (0-90) 75 Query Text:Active in Degrees Lumbar Extension (0-40) 30 Query Text:Active in Degrees Lumbar Lateral Flexion Right (0-40) 40 Query Text:Active in Degrees Lumbar Lateral Flexion Left (0-40) 40 Query Text:Active in Degrees Lateral Rotation Right (0-45) 45 Query Text:Active in Degrees Lateral Rotation Left (0-45) 30 Query Text:Active in Degrees Lumbar
--- NOTE | 2020-02-09 13:51 | PCPTNOTE ---
Patient called & cancelled scheduled appointment this date due to still being in [place].
--- NOTE | 2020-02-16 12:43 | PCPTNOTE ---
Patient called & cancelled scheduled appointment this date due to family emergency-had to take spouse to the hospital. Plans to return for next scheduled appt.
--- NOTE | 2020-02-25 11:05 | PCPTNOTE ---
Patient called & cancelled scheduled appointment this date due to taking care of sick .
--- NOTE | 2020-03-01 10:22 | PCPTNOTE ---
Addendum entered by Katie Lawton, CONSUMER EXPERIENCE CONSULTANT 03/01/20 10:42: Patient called after leaving voicemail stated to front desk lead she forgot about her appointment. Original Note: Patient did not show up for scheduled appointment this date; called and left voicemail.
--- NOTE | 2020-03-10 09:44 | PTOPEVAL ---
PHYSICAL THERAPY DISCHARGE SUMMARY Thank you for referring Di Woods to [facility].? The patient has been seen for therapy 10 visits. The goals have been mostly met and patient is discharged from therapy. Please review, sign, date and return this plan of care LINDA. I agree with and certify the following plan of care. Referring Physician Date Attending Provider: Low Alvarez MD *PT Outpatient Discharge Start: 01/21/20 13:33 Freq: Status: Active Protocol: Document 03/10/20 09:11 [facility] (Rec: 03/10/20 09:44 [facility] [id number]) Assessment Status Discharge Evaluation Information Problem Additional Evaluation Detail Patient feels overall, that her left side (trunk) is better than at eval. Patient feels she is 50-60% improved. patient continues her exercises and they help some, along with using heat and ice. Pain Assessment Timing of Pain Assessment Timing of Pain Assessment Assessment Pain Scale Pain Scale Used Numeric (1 - 10) Self Report Pain Assessment Left Chest Reported Pain Level 1 Pain Description Tightness Pain Frequency Acute Greatest Pain Intensity 2 Pain Score Pain Score 1: Self Report Interventions Used Interventions Used By Clinicians Electrical Stimulation,Heat, Ultrasound Pain Relief Interventions Used By Exercise,Heat,Ice Patient Cervical and Lumbar ROM Lumbar ROM Lumbar Flexion (0-90) 75 Query Text:Active in Degrees Lumbar Extension (0-40) 30 Query Text:Active in Degrees Lumbar Lateral Flexion Right (0-40) 40 Query Text:Active in Degrees Lumbar Lateral Flexion Left (0-40) 40 Query Text:Active in Degrees Lateral Rotation Right (0-45) 45 Query Text:Active in Degrees Lateral Rotation Left (0-45) 40 Query Text:Active in Degrees Lumbar Comments very minimal pain with left rotation Upper Extremity Range of Motion General Upper Extremity Range of Motion Reason Not Measured WFL/Left,WFL/Right Palpation Assessment Palpation Palpation left upper trap, mid trap/ rhomboid, serratus decreased to minimal+ tightness and now non-tender to pressure. Movement testing implies intercostal muscle tightnesses decreased. PT Clinical Summary Mrs. Woods has been seen 10
--- NOTE | 2020-03-19 13:37 | PCPTNOTE ---
Late entry: On the date of 03/10/20 the KX modifier was applied and should not have been. MLV
--- NOTE | 2020-03-22 11:05 | PCPTNOTE ---
KX modifier was inadvertently added to the patient's charges on the following treatment dates and should be removed; 03-03 and 03-08.
== END 2020-03-10 13:42 | disposition home or self-care (01) ==
LOC: ANHPT 09:00
PROVIDERS: PCP Internal Medicine; Visit Provider Internal Medicine
DX: M79.18 Myalgia, other site (principal); R07.89 Other chest pain
CPT/HCPCS: 97014; 97035; 97110; 97162; G0283

== ENCOUNTER 2020-03-10 13:53 | Outpatient (CLI) | payer MEDICARE, SELFPAY ==
[2020-03-10 15:08] LABS: Alanine Aminotransferase 17 U/L (4-35); Albumin Level 4.6 g/dL (3.5-5.1); Alkaline Phosphatase 61 U/L (38-126); Anion Gap 8 mmol/L (8-16); Aspartate Amino Transferase 27 U/L (14-36); Bilirubin,Total 0.5 mg/dL (0.2-1.3); Blood Urea Nitrogen 14 mg/dL (7-17); Calcium 10.2 mg/dL (8.4-10.2); Carbon Dioxide 27 mmol/L (22-30); Chloride 106 mmol/L (98-107); Cholesterol 212 mg/dL (0-200); Estimated Glomerular Filt Rate > 60; Glucose 121 mg/dL (65-105); HDL Direct 57 mg/dL; Potassium 3.9 mmol/L (3.4-5.0); Sodium 141 mmol/L (137-145); Triglycerides 142 mg/dL (<150)
[2020-03-10 15:19] LABS: LDL Cholesterol Direct 122 mg/dL
[2020-03-10 16:11] LABS: Free T4 Free Thyroxine 1.18 ng/mL (0.78-2.19)
[2020-03-10 16:17] LABS: Folic Acid > 20.0 ng/mL (2.76->20); Vitamin B12 > 1000.0 pg/mL (239-931)
[2020-03-10 19:20] LABS: Hemoglobin A1C 5.3 % (<5.7)
[2020-03-13 13:01] LABS: Vitamin D 1,25 (OH)2 Total 71 pg/mL (18-72); Vitamin D2 1,25 (OH)2 <8 pg/mL; Vitamin D3 1,25 (OH)2 71 pg/mL
[2020-03-13 21:34] LABS: Methylmalonic Acid 166 nmol/L (87-318)
== END 2020-03-10 13:54 | disposition home or self-care (01) ==
PROVIDERS: PCP Internal Medicine; Visit Provider Internal Medicine
DX: E55.9 Vitamin D deficiency, unspecified (principal); Z79.899 Other long term (current) drug therapy; E53.8 Deficiency of other specified B group vitamins; E78.2 Mixed hyperlipidemia
CPT/HCPCS: 36415; 80053; 80061; 82607; 82652; 82746; 83036; 83921; 84439; 84443

== ENCOUNTER 2020-07-16 12:12 | Outpatient (CLI) | payer MEDICARE, SELFPAY ==
[2020-07-16 12:39] LABS: Basophils Percent Auto 0.7 % (0.2-1.2); Eosinophils Absolute Auto 0.1 K/mm3 (0-0.3); Eosinophils Percent Auto 1.8 % (0-4.4); Hematocrit 40.1 % (37.0-47.0); Hemoglobin 12.9 g/dL (12.0-15.0); Immature Granulocyte Absolute 0.01 K/mm3 (0.00-0.031); Immature Granulocyte Percent A 0.2 % (0-0.5); Lymphocytes Absolute Auto 1.18 K/mm3 (0.9-3.2); Lymphocytes Percent Auto 27.2 % (18.3-44.2); Mean Corpuscular HGB Conc 32.2 g/dl (32-36); Mean Corpuscular Hemoglobin 33.6 pg (26-34); Mean Corpuscular Volume 104.4 fl (80-100); Mean Platelet Volume 9.9 fl (7.4-10.4); Monocytes Absolute Auto 0.6 K/mm3 (0.1-0.6); Monocytes Percent Auto 13.1 % (2.6-8.5); Neutrophils Absolute Auto 2.5 K/mm3 (1.3-6.7); Platelet Count Result 239 k/mm3 (150-375); Red Blood Count 3.84 M/mm3 (4.2-5.4); Red Cell Distribution Width 13.8 % (11.5-14.5); White Blood Count 4.3 K/mm3 (4.5-10.0)
[2020-07-16 12:46] LABS: Hemoglobin A1C 5.5 % (<5.7)
[2020-07-16 12:57] LABS: LDL Cholesterol Direct 85 mg/dL
[2020-07-16 13:17] LABS: Vitamin D 25 Hydroxy 60.5 ng/mL
[2020-07-16 13:56] LABS: Anion Gap 5 mmol/L (8-16); Carbon Dioxide 29 mmol/L (22-30); Chloride 104 mmol/L (98-107); Potassium 5.9 mmol/L (3.4-5.0); Sodium 138 mmol/L (137-145)
[2020-07-16 13:57] LABS: Blood Urea Nitrogen 16 mg/dL (7-17); Calcium 9.6 mg/dL (8.4-10.2); Cholesterol 161 mg/dL (0-200); Estimated Glomerular Filt Rate > 60; Glucose 82 mg/dL (65-105); HDL Direct 49 mg/dL; Triglycerides 196 mg/dL (<150)
== END 2020-07-16 12:13 | disposition home or self-care (01) ==
PROVIDERS: PCP Internal Medicine; Visit Provider Internal Medicine
DX: E55.9 Vitamin D deficiency, unspecified (principal); E78.2 Mixed hyperlipidemia; Z79.899 Other long term (current) drug therapy
CPT/HCPCS: 36415; 80048; 80061; 82306; 83036; 84443; 85025

== ENCOUNTER 2020-11-27 10:33 | Outpatient (CLI) | payer MEDICARE, SELFPAY ==
[2020-11-27 11:24] LABS: Basophils Percent Auto 0.8 % (0.2-1.2); Eosinophils Absolute Auto 0.1 K/mm3 (0-0.3); Eosinophils Percent Auto 3.5 % (0-4.4); Hematocrit 37.6 % (37.0-47.0); Hemoglobin 12.4 g/dL (12.0-15.0); Immature Granulocyte Absolute 0.01 K/mm3 (0.00-0.031); Immature Granulocyte Percent A 0.3 % (0-0.5); Lymphocytes Absolute Auto 1.03 K/mm3 (0.9-3.2); Lymphocytes Percent Auto 25.9 % (18.3-44.2); Mean Corpuscular Hemoglobin 34.3 pg (26-34); Mean Corpuscular Volume 104.2 fl (80-100); Mean Platelet Volume 9.9 fl (7.4-10.4); Monocytes Absolute Auto 0.6 K/mm3 (0.1-0.6); Monocytes Percent Auto 15.1 % (2.6-8.5); Neutrophils Absolute Auto 2.2 K/mm3 (1.3-6.7); Neutrophils Percent Auto 54.4 % (45.5-73.1); Platelet Count Result 269 k/mm3 (150-375); Red Blood Count 3.61 M/mm3 (4.2-5.4); Red Cell Distribution Width 13.4 % (11.5-14.5)
[2020-11-27 11:30] LABS: Add Urine Microscopic? YES; Appearance Urine Clear (Clear); Bilirubin Urine Negative (Negative); Blood Urine Negative (Negative); Color Urine Yellow (Yellow); Glucose Urine UA Negative (Negative); Ketones Urine Negative (Negative); Leukocyte Esterase Ur 2+ LEU/UL (Negative); Nitrate Urine Negative (Negative); Protein Urine Negative (Negative); Specific Grav Ur 1.006 (1.001-1.035); Urobilinogen Urine Negative mg/dL (<2.0); WBC Urine >75 /hpf
[2020-11-27 11:36] LABS: Alanine Aminotransferase 36 U/L (4-35); Albumin Level 4.9 g/dL (3.5-5.1); Alkaline Phosphatase 72 U/L (38-126); Anion Gap 12 mmol/L (8-16); Aspartate Amino Transferase 41 U/L (14-36); Bilirubin,Total 0.5 mg/dL (0.2-1.3); Blood Urea Nitrogen 16 mg/dL (7-17); Calcium 10.4 mg/dL (8.4-10.2); Carbon Dioxide 25 mmol/L (22-30); Chloride 103 mmol/L (98-107); Cholesterol 215 mg/dL (0-200); Estimated Glomerular Filt Rate > 60; Glucose 100 mg/dL (65-110); HDL Direct 52 mg/dL; Hemoglobin A1C 5.4 % (<5.7); Potassium 4.8 mmol/L (3.4-5.0); Sodium 140 mmol/L (137-145); Triglycerides 83 mg/dL (<150)
[2020-11-27 11:47] LABS: LDL Cholesterol Direct 143 mg/dL
[2020-11-27 12:45] LABS: Folic Acid > 20.0 ng/mL (2.76->20); Vitamin B12 > 1000.0 pg/mL (239-931)
== END 2020-11-27 10:34 | disposition home or self-care (01) ==
PROVIDERS: PCP Internal Medicine; Visit Provider Internal Medicine
DX: E53.8 Deficiency of other specified B group vitamins (principal); E78.2 Mixed hyperlipidemia; Z79.899 Other long term (current) drug therapy; E55.9 Vitamin D deficiency, unspecified
CPT/HCPCS: 36415; 80053; 80061; 81001; 82607; 82652; 82746; 83036; 85025; 87086

== ENCOUNTER 2020-12-15 17:46 | Outpatient (CLI) | payer MEDICARE, SELFPAY ==
--- NOTE | ~2020-12-15 | XR_ITS ---
EXAMINATION: XR cervical spine min 6V DATE: 12/15/2020 18:27 INDICATION: Right-sided neck pain. TECHNIQUE: 6 views of cervical spine on 8 radiographs including flexion and extension views were obta ined. COMPARISON: Cervical spine radiographs 11/04/2005 FINDINGS: There is 13 degrees dextroscoliosis of cervical spine. There are changes of anterior fusion procedure from C3 to C7 with discectomies and healed interbody bone graft. No abnormal motion with f lexion or extension. Intervertebral disc heights are normal. There is multilevel facet joint osteoart hritis, severe bilaterally at C7-T1. There is mild scarring at the lung apices. IMPRESSION: 1. Mild cervical spondylosis. 2. Anterior fusion procedure from C3 to C7. 3. Cervical dextroscoliosis. Reviewed, dictated and finalized at location A.
== END 2020-12-15 17:47 | disposition home or self-care (01) ==
PROVIDERS: PCP Internal Medicine; Visit Provider Internal Medicine
DX: M47.892 Other spondylosis, cervical region (principal); Z98.1 Arthrodesis status
CPT/HCPCS: 72052

== ENCOUNTER 2020-12-21 08:52 | Outpatient (CLI) | payer MEDICARE, SELFPAY ==
[2020-12-21 13:43] LABS: Eosinophils Absolute Auto 0.2 K/mm3 (0-0.3); Eosinophils Percent Auto 3.6 % (0-4.4); Hemoglobin 12.5 g/dL (12.0-15.0); Immature Granulocyte Absolute 0.02 K/mm3 (0.00-0.031); Immature Granulocyte Percent A 0.5 % (0-0.5); Lymphocytes Absolute Auto 1.28 K/mm3 (0.9-3.2); Mean Corpuscular HGB Conc 32.9 g/dl (32-36); Mean Corpuscular Hemoglobin 35.2 pg (26-34); Mean Platelet Volume 10.7 fl (7.4-10.4); Monocytes Absolute Auto 0.6 K/mm3 (0.1-0.6); Neutrophils Percent Auto 48.9 % (45.5-73.1); Platelet Count Result 287 k/mm3 (150-375); Red Blood Count 3.55 M/mm3 (4.2-5.4); Red Cell Distribution Width 12.9 % (11.5-14.5); White Blood Count 4.1 K/mm3 (4.5-10.0)
[2020-12-21 14:16] LABS: Anion Gap 14 mmol/L (8-16); Blood Urea Nitrogen 21 mg/dL (7-17); Calcium 10.3 mg/dL (8.4-10.2); Carbon Dioxide 25 mmol/L (22-30); Chloride 103 mmol/L (98-107); Estimated Glomerular Filt Rate 60; Glucose 95 mg/dL (65-110); Potassium 4.7 mmol/L (3.4-5.0); Sodium 142 mmol/L (137-145)
== END 2020-12-21 08:53 | disposition home or self-care (01) ==
LOC: ANHWCLAB 08:57
PROVIDERS: PCP Internal Medicine; Visit Provider Internal Medicine Cardiovascular Disease
DX: R07.9 Chest pain, unspecified (principal)
CPT/HCPCS: 36415; 80048; 85025

== ENCOUNTER 2021-01-03 10:53 | Outpatient (CLI) | payer MEDICARE, SELFPAY ==
[2021-01-03 13:37] LABS: Anion Gap 8 mmol/L (8-16); Blood Urea Nitrogen 21 mg/dL (7-17); Calcium 9.9 mg/dL (8.4-10.2); Carbon Dioxide 30 mmol/L (22-30); Chloride 102 mmol/L (98-107); Creatine Kinase 85 U/L (30-135); Estimated Glomerular Filt Rate 60; Glucose 81 mg/dL (65-110); Potassium 4.5 mmol/L (3.4-5.0); Sodium 140 mmol/L (137-145)
== END 2021-01-03 10:54 | disposition home or self-care (01) ==
PROVIDERS: PCP Internal Medicine; Visit Provider Internal Medicine Cardiovascular Disease
DX: I10 Essential (primary) hypertension (principal)
CPT/HCPCS: 36415; 80048; 82550

== ENCOUNTER 2021-03-16 14:36 | Outpatient (CLI) | payer MEDICARE, SELFPAY ==
[2021-03-16 16:32] LABS: Add Urine Microscopic? YES; Appearance Urine Cloudy (Clear); Bacteria Urine Trace /hpf; Bilirubin Urine Negative (Negative); Blood Urine Negative (Negative); Color Urine Yellow (Yellow); Glucose Urine UA Negative (Negative); Ketones Urine Negative (Negative); Leukocyte Esterase Ur 3+ LEU/UL (Negative); Nitrate Urine Negative (Negative); Protein Urine Negative (Negative); Specific Grav Ur 1.009 (1.001-1.035); Squamous Epithelial Cell Urine Rare /hpf (Few); Urobilinogen Urine Negative mg/dL (<2.0); WBC Urine >75 /hpf
== END 2021-03-16 14:37 | disposition home or self-care (01) ==
LOC: ANHWCLAB 14:39
PROVIDERS: PCP Internal Medicine; Visit Provider Internal Medicine
DX: N39.0 Urinary tract infection, site not specified (principal)
CPT/HCPCS: 81001; 87086

== ENCOUNTER 2021-04-25 13:25 | Outpatient (CLI) | payer MEDICARE, SELFPAY ==
[2021-04-25 16:24] LABS: Basophils Percent Auto 0.8 % (0.2-1.2); Eosinophils Absolute Auto 0.1 K/mm3 (0-0.3); Eosinophils Percent Auto 2.7 % (0-4.4); Hemoglobin 12.6 g/dL (12.0-15.0); Immature Granulocyte Absolute 0.01 K/mm3 (0.00-0.031); Immature Granulocyte Percent A 0.2 % (0-0.5); Lymphocytes Absolute Auto 1.09 K/mm3 (0.9-3.2); Lymphocytes Percent Auto 21.2 % (18.3-44.2); Mean Corpuscular HGB Conc 33.2 g/dl (32-36); Mean Corpuscular Hemoglobin 34.8 pg (26-34); Mean Platelet Volume 9.9 fl (7.4-10.4); Monocytes Absolute Auto 0.7 K/mm3 (0.1-0.6); Neutrophils Absolute Auto 3.2 K/mm3 (1.3-6.7); Neutrophils Percent Auto 62.1 % (45.5-73.1); Platelet Count Result 284 k/mm3 (150-375); Red Blood Count 3.62 M/mm3 (4.2-5.4); Red Cell Distribution Width 13.8 % (11.5-14.5); White Blood Count 5.2 K/mm3 (4.5-10.0)
[2021-04-25 16:37] LABS: Anion Gap 6 mmol/L (8-16); Blood Urea Nitrogen 13 mg/dL (7-17); Calcium 9.7 mg/dL (8.4-10.2); Carbon Dioxide 28 mmol/L (22-30); Chloride 108 mmol/L (98-107); Cholesterol 199 mg/dL (0-200); Estimated Glomerular Filt Rate > 60; Glucose 100 mg/dL (65-110); HDL Direct 44 mg/dL; Potassium 4.2 mmol/L (3.4-5.0); Sodium 142 mmol/L (137-145); Triglycerides 328 mg/dL (<150)
[2021-04-25 16:48] LABS: LDL Cholesterol Direct 106 mg/dL
[2021-04-25 18:10] LABS: Hemoglobin A1C 5.6 % (<5.7)
== END 2021-04-25 13:26 | disposition home or self-care (01) ==
PROVIDERS: PCP Internal Medicine; Visit Provider Internal Medicine
DX: E78.2 Mixed hyperlipidemia (principal); Z79.899 Other long term (current) drug therapy
CPT/HCPCS: 36415; 80048; 80061; 83036; 85025

== ENCOUNTER 2021-06-27 12:02 | Emergency (ER) | payer MEDICARE, SELFPAY ==
--- NOTE | ~2021-06-27 | XR_ITS ---
EXAMINATION: XR chest 2V DATE: 06/27/2021 13:07 INDICATION: Shortness of breath. Cough. TECHNIQUE: Frontal and lateral views of the chest were obtained. COMPARISON: Chest 2 views 07/07/2019, chest CT 11/27/2016 FINDINGS: There is mild scarring at the lung apices. There is mild atelectasis versus scarring in the lower lung zones. No pleural effusion or pneumothorax. The heart size is normal. There are surgical clips in right axilla. IMPRESSION: 1. Mild scarring at the lung apices and mild atelectasis versus scarring in the lower lung zones. Reviewed, dictated and finalized at location B.
--- NOTE | ~2021-06-27 | CT_ITS ---
EXAMINATION: CT abdomen pelvis w con DATE: 06/27/2021 14:56 INDICATION: Left-sided abdominal pain TECHNIQUE: Computed tomography (CT) of the abdomen and pelvis was performed with 100 mL Omnipaque-350 intravenous contrast. Automated exposure control and iterative reconstruction technique were employe d. The dose-length product was 309.75 mGy-cm. COMPARISON: 03/10/2019 FINDINGS: Mild bibasilar atelectasis. Heart size is normal. Atherosclerotic coronary artery calcification. No p ericardial or pleural effusion. Small sliding-type hiatal hernia with change of likely Marisela fundopl ication. Chronic mild intra and extra hepatic ductal or ductal dilation likely related to prior lena cystectomy with no visualized gallbladder. Unchanged likely benign subcentimeter low-attenuation sple dafne lesion. Pancreas and bilateral adrenal glands are normal. There small bilateral renal cysts the l argest on the right measuring 1.1 cm. There is moderate scattered colonic diverticulosis without chasity cent inflammatory change to suggest diverticulitis. Postoperative change of prior partial colectomy w ith rectosigmoid anastomosis. Appendix is normal. Short segment of nonobstructed gas-filled small bow el extends into a small paraumbilical ventral hernia along a midline surgical scar. Bladder, antevert ed uterus and bilateral adnexa are unremarkable. No free intraperitoneal gas or fluid. No pathologica lly enlarged abdominal or pelvic lymphadenopathy. Mild thoracolumbar levocurvature. Mild degenerative skeletal changes in the spine and pelvis. Stable appearance of a chronic mildly sclerotic hemangioma at L1 which can be seen dating back to CT dated 01/01/2006. IMPRESSION: 1. No acute intra-abdominal/pelvic process. 2. Short segment of nonobstructed small bowel extends into a small paraumbilical ventral hernia. 3. Diverticulosis. 4. Small sliding-type hiatal hernia with change of prior Marisela fund location. Reviewed, dictated and finalized at location A. IMPRESSION: 1. No acute intra-abdominal/pelvic process. 2. Short segment of nonobstructed small bowel extends into a small paraumbilica l ventral hernia. 3. Diverticulosis. 4. Small sliding-type hiatal hernia with change of prior Marisela fund location.
[2021-06-27 12:05] VITALS: BP 158/84; PULSE 79; RESP 18; TEMP 36.3; O2SAT 100
--- NOTE | 2021-06-27 12:08 | ECG_ITS ---
Measurements Intervals [place] Rate: 68 P: 54 NC: 152 QRS: -21 QRSD: 124 T: 66 QT: 408 QTc: 436 Interpretive Statements SINUS RHYTHM LEFT BUNDLE BRANCH BLOCK BASELINE ARTIFACT- I, III ABNORMAL ECG Electronically Signed On 06-27-2021 12:44:28 CDT by Onofre Dior D.O.
[2021-06-27 12:26] LABS: Basophils Percent Auto 0.4 % (0.2-1.2); Eosinophils Absolute Auto 0.1 K/mm3 (0-0.3); Eosinophils Percent Auto 1.8 % (0-4.4); Hemoglobin 12.3 g/dL (12.0-15.0); Immature Granulocyte Absolute 0.02 K/mm3 (0.00-0.031); Immature Granulocyte Percent A 0.4 % (0-0.5); Lymphocytes Absolute Auto 1.19 K/mm3 (0.9-3.2); Lymphocytes Percent Auto 26.4 % (18.3-44.2); Mean Corpuscular HGB Conc 32.4 g/dl (32-36); Mean Corpuscular Hemoglobin 33.8 pg (26-34); Mean Corpuscular Volume 104.4 fl (80-100); Mean Platelet Volume 9.3 fl (7.4-10.4); Monocytes Absolute Auto 0.6 K/mm3 (0.1-0.6); Monocytes Percent Auto 12.4 % (2.6-8.5); Neutrophils Absolute Auto 2.6 K/mm3 (1.3-6.7); Neutrophils Percent Auto 58.6 % (45.5-73.1); Platelet Count Result 311 k/mm3 (150-375); Red Blood Count 3.64 M/mm3 (4.2-5.4); Red Cell Distribution Width 13.4 % (11.5-14.5); White Blood Count 4.5 K/mm3 (4.5-10.0)
[2021-06-27 12:41] LABS: Alanine Aminotransferase 22 U/L (4-35); Albumin Level 4.6 g/dL (3.5-5.1); Alkaline Phosphatase 64 U/L (38-126); Anion Gap 7 mmol/L (8-16); Aspartate Amino Transferase 37 U/L (14-36); Bilirubin,Total 0.4 mg/dL (0.2-1.3); Blood Urea Nitrogen 13 mg/dL (7-17); Calcium 9.2 mg/dL (8.4-10.2); Carbon Dioxide 29 mmol/L (22-30); Chloride 104 mmol/L (98-107); Estimated CRCL calculation 40 ml/min; Estimated Glomerular Filt Rate > 60; Glucose 96 mg/dL (65-110); Potassium 4.2 mmol/L (3.4-5.0); Sodium 140 mmol/L (137-145)
--- NOTE | 2021-06-27 12:57 | ED.SOB ---
HPI - SOB/Dyspnea General Chief Complaint: Shortness of Breath/Dyspnea Stated Complaint: sob Time Seen by Provider: 06/27/21 12:49 Source: RN notes reviewed History of Present Illness HPI Narrative: Patient presents emergency department from home for shortness of breath. Patient states that she began to get ill approximately 5 days ago when she was having diarrhea states the diarrhea improved but she woke this morning feeling very short of breath states she cannot take a deep breath and feels more short of breath with activity she denies any fevers or chills cough chest pain vomiting or any further diarrhea states she does have some mild tenderness in her left lower quadrant of her abdomen Related Data Home Medications Medication Instructions Recorded Confirmed cetirizine 10 mg tablet 10 mg PO DAILY 01/20/19 04/27/21 methylcellulose (laxative) 500 mg 500 mg PO DAILY 01/20/19 04/27/21 tablet cyanocobalamin (vitamin B-12) 1,000 mcg PO DAILY 01/21/19 04/27/21 1,000 mcg capsule exemestane 25 mg tablet 25 mg PO DAILY 01/21/19 04/27/21 multivitamin 1 cap PO DAILY 01/21/19 04/27/21 cholecalciferol (vitamin D3) 50 mcg PO DAILY 03/30/19 04/27/21 nortriptyline 10 mg capsule 10 mg PO DAILY 01/08/20 04/27/21 acetaminophen [Tylenol Extra 500 mg PO QID PRN 02/05/20 04/27/21 Strength] omega-3 fatty acids 1,000 mg 1,200 mg PO DAILY cap 12/09/20 04/27/21 capsule aspirin 81 mg capsule 81 mg PO DAILY 01/27/21 04/27/21 clopidogrel 75 mg tablet 75 mg PO DAILY 01/27/21 04/27/21 metoprolol succinate 25 mg 25 mg PO DAILY 01/27/21 04/27/21 tablet,extended release 24 hr Allergies Allergy/AdvReac Type Severity Reaction Status Date / Time azithromycin Allergy Intermediate Rash Verified 06/27/21 12:08 baclofen Allergy Intermediate Rash Verified 06/27/21 12:08 Penicillins Allergy Intermediate Rash Verified 06/27/21 12:08 propoxyphene Allergy Intermediate Rash Verified 06/27/21 12:08 Xvmenrr-FRA-FmM Reductase Allergy Intermediate Rash Verified 06/27/21 12:08 Inhibitor [Reqyamt-Txi-Zsm Reductase Inhibitor] ibuprofen AdvReac Gastrointestinal Verified 06/27/21 12:08 Upset COCONUT AdvReac Mild GAGS Uncoded 06/27/21 12:08 Review of Systems Review of Systems: Gen.: Denies fevers or chills ENT: Denies congestion Respiratory: See HPI CV: Denies chest pain or palpitations GI: Reports lower abdominal pain and diarrhea denies vomiting diarrhea Musculoskeletal: Denies back pain or muscle pain Neuro: Denies numbness, tingling, weakness or focal weakness Skin: Denies rash Except as documented, all other systems reviewed and negative [facility] Past Medical History Medical History Abdominal pain Abnormal finding of blood chemistry, unspecified Anxiety with depression Asthma Back pain BMI 25.0-25.9,adult Bronchitis (12/19/18) Cervicalgia Chronic abdominal pain Colon cancer screening Cough Diarrhea Diverticulitis Dizziness DJD (degenerative joint disease), multiple sites Dysuria Encounter for routine adult health examination with abnormal findings Encounter for routine adult health examination without abnormal findings Follow up GERD (gastroesophageal reflux disease) Hiatal hernia History of breast cancer in female Hx of breast cancer Hyperlipidemia Hypersomnia, idiopathic IBS (irritable bowel syndrome) Intercostal muscle pain Itching Left-sided chest wall pain Lymphedema Mild reactive airways disease Neuropathy 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
[2021-06-27] MEDS: IPRATROPIUM BR 0.02% INH SOLN 0.5 MG/2.5 ML VIAL INHALATION (13:26)
[2021-06-27] MEDS: ALBUTEROL SULFATE NEB 2.5 MG/0.5 ML INH 5 MG INHALATION (13:26)
[2021-06-27 13:27] VITALS: PULSE 65; RESP 18
[2021-06-27 13:34] VITALS: PULSE 68; RESP 18
[2021-06-27 14:00] LABS: Appearance Urine Clear (Clear); Bilirubin Urine Negative (Negative); Blood Urine Negative (Negative); Color Urine Yellow (Yellow); Glucose Urine UA Negative (Negative); Ketones Urine Negative (Negative); Leukocyte Esterase Ur 1+ LEU/UL (Negative); Nitrate Urine Negative (Negative); Protein Urine Negative (Negative); Specific Grav Ur 1.015 (1.001-1.035); Urobilinogen Urine 0.2 mg/dL (<2.0); pH Urine 7.5 (5.0-9.0)
[2021-06-27 14:03] LABS: Lipase 47 U/L (23-300)
[2021-06-27 14:04] LABS: Lactic Acid Reflex 1.8 mmol/L (0.7-2.0)
[2021-06-27 14:10] LABS: INR 1.1; Partial Thromboplastin Time 24.8 SECONDS (22.3-36.8)
[2021-06-27 14:12] LABS: NT Pro B Type Natriuretic Pept 493 pg/mL (5-100); Troponin I < 0.012 ng/mL (0.000-0.034)
[2021-06-27 14:13] LABS: D Dimer 0.46 ug/mL (<0.48)
[2021-06-27 14:27] LABS: Add Urine Microscopic? YES; RBC Urine 0-2 /hpf (0-2); Renal Epithelial Cells Urine Rare /hpf (None Seen); Squamous Epithelial Cell Urine Rare /hpf (Few)
[2021-06-27 15:52] LABS: SARS-CoV-2 RNA PCR Negative
[2021-06-27 16:02] VITALS: BP 145/79; PULSE 61
[2021-06-27 16:03] VITALS: BP 145/80; PULSE 67
[2021-06-27 16:04] VITALS: BP 153/84; PULSE 68
[2021-06-27] MEDS: NITROFURANTOIN MONOHYD MACROCR 100 MG CAP PO (16:26)
[2021-06-27] MEDS: methylPREDNISolone SOD SUCC 125 MG VIAL IV PUSH (16:26)
== END 2021-06-27 16:42 | disposition home or self-care (01) ==
PROVIDERS: Emergency Provider Emergency Medicine; PCP Internal Medicine
DX: J45.901 Unspecified asthma with (acute) exacerbation (principal); N39.0 Urinary tract infection, site not specified; Z20.822 Contact with and (suspected) exposure to COVID-19; E78.5 Hyperlipidemia, unspecified; K21.9 Gastro-esophageal reflux disease without esophagitis; K58.9 Irritable bowel syndrome, unspecified; E55.9 Vitamin D deficiency, unspecified; E53.8 Deficiency of other specified B group vitamins; F41.8 Other specified anxiety disorders; Z85.3 Personal history of malignant neoplasm of breast; Z79.82 Long term (current) use of aspirin; Z90.13 Acquired absence of bilateral breasts and nipples; I44.7 Left bundle-branch block, unspecified
CPT/HCPCS: 36415; 71046; 74177; 80053; 81001; 83605; 83690; 83880; 84484; 85025; 85380; 85610; 85730; 87040; 87077; 87086; 87186; 93005; 94640; 96374; 99284; A9270; C9803; J2930; Q9967; U0003; U0005

== ENCOUNTER 2021-08-26 12:00 | Outpatient (CLI) | payer MEDICARE, SELFPAY ==
[2021-08-26 12:58] LABS: Hemoglobin A1C 5.6 % (<5.7)
[2021-08-26 13:09] LABS: Alanine Aminotransferase 21 U/L (6-35); Albumin Level 4.5 g/dL (3.5-5.1); Alkaline Phosphatase 67 U/L (38-126); Anion Gap 10 mmol/L (8-16); Aspartate Amino Transferase 36 U/L (14-36); Bilirubin,Total 0.6 mg/dL (0.2-1.3); Blood Urea Nitrogen 14 mg/dL (7-17); Calcium 9.7 mg/dL (8.4-10.2); Carbon Dioxide 24 mmol/L (22-30); Chloride 106 mmol/L (98-107); Cholesterol 171 mg/dL (0-200); Estimated Glomerular Filt Rate > 60; Glucose 94 mg/dL (65-110); HDL Direct 40 mg/dL; Potassium 4.5 mmol/L (3.4-5.0); Sodium 140 mmol/L (137-145); Triglycerides 123 mg/dL (<150)
[2021-08-26 13:12] LABS: LDL Cholesterol Direct 94 mg/dL
[2021-08-26 13:20] LABS: Vitamin D 25 Hydroxy 60.3 ng/mL
[2021-08-26 14:32] LABS: Folic Acid > 20.0 ng/mL (2.76->20); Vitamin B12 > 1000.0 pg/mL (239-931)
== END 2021-08-26 12:01 | disposition home or self-care (01) ==
LOC: ANHLAB 12:04
PROVIDERS: PCP Internal Medicine; Visit Provider Internal Medicine
DX: E55.9 Vitamin D deficiency, unspecified (principal); E78.2 Mixed hyperlipidemia; E53.8 Deficiency of other specified B group vitamins; Z13.1 Encounter for screening for diabetes mellitus; Z79.899 Other long term (current) drug therapy
CPT/HCPCS: 36415; 80053; 80061; 82306; 82607; 82746; 83036

== ENCOUNTER 2021-09-06 08:37 | Emergency (ER) | payer MEDICARE, SELFPAY ==
[2021-09-06 08:46] VITALS: BP 157/101; PULSE 78; RESP 16; TEMP 36.9; O2SAT 98
--- NOTE | 2021-09-06 08:47 | ED.SKABFB ---
HPI - Skin/Abscess/Foreign Bdy General Chief complaint: Skin/Abscess/Foreign Body Stated complaint: insect bite Time Seen by Provider: 09/06/21 08:48 Source: patient, RN notes reviewed and old records reviewed Mode of arrival: ambulatory Limitations: no limitations History of Present Illness HPI narrative: 81-year-old female presents to the [facility] after being bit by an unknown insect. Redness and inflammation noted to the medial aspect right knee, left lower extremity. Patient states that she is applied baking soda to the area. No other treatment prior to arrival. Patient reports that she was mowing her grass yesterday with a push mower when she felt something bite her. Denies lip or tongue swelling. Denies any chest pain or shortness of breath. No abdominal pains. Denies fevers Related Data Home Medications Medication Instructions Recorded Confirmed cetirizine 10 mg tablet (Zyrtec) 10 mg PO DAILY 01/20/19 09/06/21 methylcellulose (laxative) 500 mg 500 mg PO DAILY 01/20/19 09/06/21 tablet (Citrucel) cyanocobalamin (vitamin B-12) 1,000 mcg PO DAILY 01/21/19 09/06/21 1,000 mcg capsule exemestane 25 mg tablet 25 mg PO DAILY 01/21/19 09/06/21 multivitamin 1 cap PO DAILY 01/21/19 09/06/21 cholecalciferol (vitamin D3) 50 50 mcg PO DAILY 03/30/19 09/06/21 mcg (2,000 unit) capsule nortriptyline 10 mg capsule 10 mg PO DAILY 01/08/20 09/06/21 acetaminophen 500 mg tablet 500 mg PO QID PRN Pain 02/05/20 09/06/21 (Tylenol Extra Strength) omega-3 fatty acids 1,000 mg 1,200 mg PO DAILY 12/09/20 09/06/21 capsule (Fish Oil Concentrate) aspirin 81 mg capsule 81 mg PO DAILY 01/27/21 09/06/21 clopidogrel 75 mg tablet 75 mg PO DAILY 01/27/21 09/06/21 metoprolol succinate 25 mg 25 mg PO DAILY 01/27/21 09/06/21 tablet,extended release 24 hr Allergies Allergy/AdvReac Type Severity Reaction Status Date / Time azithromycin Allergy Intermediate Rash Verified 09/06/21 08:53 baclofen Allergy Intermediate Rash Verified 09/06/21 08:53 Penicillins Allergy Intermediate Rash Verified 09/06/21 08:53 propoxyphene Allergy Intermediate Rash Verified 09/06/21 08:53 Asttggm-OTV-RoW Reductase Allergy Intermediate Rash Verified 09/06/21 08:53 Inhibitor [Csekfnj-Dfh-Gcp Reductase Inhibitor] ibuprofen AdvReac Gastrointestinal Verified 09/06/21 08:53 Upset COCONUT AdvReac Mild GAGS Uncoded 06/27/21 12:08 Review of Systems Review of Systems: All systems reviewed & are unremarkable except as noted in HPI and below Constitutional: Constitutional: Reports no additional constitutional complaints, Denies chills and Denies fever(s) Eyes: Eyes: Reports no additional eye complaints ENT: Reports system reviewed and no additional complaints, except as documented Cardiovascular: Cardiovascular: Reports no additional cardiovascular complaints, Denies chest pain and Denies dyspnea Respiratory: Respiratory: Reports no additional respiratory complaints, Denies cough and Denies dyspnea Gastrointestinal: Gastrointestinal: Reports no additional gastrointestinal complaints, Denies abdominal pain, Denies nausea and Denies vomiting Musculoskeletal: Musculoskeletal: Reports no additional musculoskeletal complaints Integumentary/Breasts: Skin/Breast: Reports as per HPI Neurologic: Reports system reviewed and no additional complaints, except as documented Psychiatric: Psychiatric: Reports no additional psychiatric complaints Allergic/Immunologic: Allergic/Immunologic: Reports no additional allergic/immunologic complaints PMFSH Past Medical History Medical History Abdominal pain Abnormal finding of blood chemistry, unspecified Anxiety with depression Asthma Back pain BMI 25.0-25.9,adult Bronchitis (12/19/18) Cervicalgia Chronic abdominal pain Chronic abdominal pain Chronic diarrhea Colon cancer screening Cough Diarrhea Diverticulitis Dizziness DJD (degenerative join
== END 2021-09-06 09:10 | disposition home or self-care (01) ==
PROVIDERS: Emergency Provider Nurse Practitioner; PCP Internal Medicine
DX: S80.261A Insect bite (nonvenomous), right knee, initial encounter (principal); W57.XXXA Bitten or stung by nonvenomous insect and other nonvenomous arthropods, initial encounter; J45.909 Unspecified asthma, uncomplicated; K21.9 Gastro-esophageal reflux disease without esophagitis; Z85.3 Personal history of malignant neoplasm of breast; E78.5 Hyperlipidemia, unspecified; G62.9 Polyneuropathy, unspecified; Z79.82 Long term (current) use of aspirin; Z90.13 Acquired absence of bilateral breasts and nipples
CPT/HCPCS: 99213; G0463

== ENCOUNTER 2022-02-01 12:36 | Outpatient (CLI) | payer MEDICARE, SELFPAY ==
--- NOTE | ~2022-02-01 | XR_ITS ---
XR chest 2V DATE: 02/01/2022 13:12 INDICATION: Shortness of breath. History of asthma. TECHNIQUE: PA and lateral views COMPARISON: 06/27/2021 PA and lateral chest FINDINGS: Heart size is within normal range. No hilar or mediastinal enlargement. No pulmonary infiltrate or consolidation, pleural effusion or pu lmonary vascular congestion or pneumothorax. Surgical clips, right axillary area consistent with prior axillary node dissection. Diffuse osteopeni a. Mild thoracic, lumbar scoliosis. IMPRESSION: No active cardiopulmonary disease or significant change since 06/27/2021 Reviewed, dictated and finalized at location B. RANCE VERIFIER IMPRESSION: No active cardiopulmonary disease or significant change since 022
[2022-02-01 13:19] LABS: Basophils Percent Auto 0.7 % (0.2-1.2); Hematocrit 32.4 % (37.0-47.0); Hemoglobin 10.3 g/dL (12.0-15.0); Immature Granulocyte Absolute 0.03 K/mm3 (0.00-0.031); Immature Granulocyte Percent A 0.7 % (0-0.5); Lymphocytes Percent Auto 26.3 % (18.3-44.2); Mean Corpuscular HGB Conc 31.8 g/dl (32-36); Mean Corpuscular Hemoglobin 34.2 pg (26-34); Mean Corpuscular Volume 107.6 fl (80-100); Mean Platelet Volume 9.9 fl (7.4-10.4); Monocytes Absolute Auto 0.7 K/mm3 (0.1-0.6); Monocytes Percent Auto 17.2 % (2.6-8.5); Neutrophils Absolute Auto 2.3 K/mm3 (1.3-6.7); Neutrophils Percent Auto 54.1 % (45.5-73.1); Platelet Count Result 232 k/mm3 (150-375); Red Blood Count 3.01 M/mm3 (4.2-5.4); Red Cell Distribution Width 16.3 % (11.5-14.5); White Blood Count 4.2 K/mm3 (4.5-10.0)
[2022-02-01 13:22] LABS: Alanine Aminotransferase 20 U/L (6-35); Alkaline Phosphatase 71 U/L (38-126); Anion Gap 15 mmol/L (8-16); Aspartate Amino Transferase 39 U/L (14-36); Bilirubin,Total 0.7 mg/dL (0.2-1.3); Blood Urea Nitrogen 12 mg/dL (7-17); Carbon Dioxide 26 mmol/L (22-30); Chloride 103 mmol/L (98-107); Cholesterol 140 mg/dL (0-200); Estimated Glomerular Filt Rate > 60; Glucose 103 mg/dL (65-110); HDL Direct 43 mg/dL; Potassium 4.3 mmol/L (3.4-5.0); Sodium 144 mmol/L (137-145); Triglycerides 121 mg/dL (<150)
[2022-02-01 13:33] LABS: LDL Cholesterol Direct 58 mg/dL
[2022-02-01 14:20] LABS: Appearance Urine Clear (Clear); Bilirubin Urine 1+ (Negative); Blood Urine 2+ (Negative); Color Urine Yellow (Yellow); Glucose Urine UA Trace mg/dL (Negative); Ketones Urine Trace mg/dL (Negative); Leukocyte Esterase Ur Negative LEU/UL (Negative); Nitrate Urine Negative (Negative); Protein Urine 3+ mg/dL (Negative); Specific Grav Ur 1.025 (1.001-1.035); pH Urine 5.5 (5.0-9.0)
[2022-02-01 14:26] LABS: Mucus Urine Few /lpf; Squamous Epithelial Cell Urine Occasional /hpf (Few)
[2022-02-01 14:28] LABS: Add Urine Microscopic? YES
[2022-02-01 14:29] LABS: Free T4 Free Thyroxine 1.28 ng/mL (0.78-2.19)
== END 2022-02-01 12:37 | disposition home or self-care (01) ==
LOC: ANHLAB 12:40
PROVIDERS: PCP Internal Medicine; Visit Provider Internal Medicine
DX: Z13.29 Encounter for screening for other suspected endocrine disorder (principal); E78.2 Mixed hyperlipidemia; R06.02 Shortness of breath; Z79.899 Other long term (current) drug therapy
CPT/HCPCS: 36415; 71046; 80053; 80061; 81001; 84439; 84443; 85025; 87086; 87088

== ENCOUNTER 2022-02-07 12:03 | Outpatient (CLI) | payer MEDICARE, SELFPAY ==
[2022-02-07 16:51] LABS: Basophils Percent Auto 0.3 % (0.2-1.2); Eosinophils Percent Auto 0.8 % (0-4.4); Hematocrit 31.5 % (37.0-47.0); Immature Granulocyte Absolute 0.01 K/mm3 (0.00-0.031); Immature Granulocyte Percent A 0.3 % (0-0.5); Lymphocytes Absolute Auto 1.25 K/mm3 (0.9-3.2); Lymphocytes Percent Auto 32.1 % (18.3-44.2); Mean Corpuscular HGB Conc 31.7 g/dl (32-36); Mean Corpuscular Hemoglobin 34.2 pg (26-34); Mean Corpuscular Volume 107.9 fl (80-100); Mean Platelet Volume 9.8 fl (7.4-10.4); Monocytes Absolute Auto 0.5 K/mm3 (0.1-0.6); Monocytes Percent Auto 12.6 % (2.6-8.5); Neutrophils Absolute Auto 2.1 K/mm3 (1.3-6.7); Neutrophils Percent Auto 53.9 % (45.5-73.1); Platelet Count Result 313 k/mm3 (150-375); Red Blood Count 2.92 M/mm3 (4.2-5.4); Red Cell Distribution Width 16.8 % (11.5-14.5); White Blood Count 3.9 K/mm3 (4.5-10.0)
[2022-02-07 16:52] LABS: Add Urine Microscopic? YES; Appearance Urine Clear (Clear); Bilirubin Urine Negative (Negative); Blood Urine Negative (Negative); Color Urine Light Yellow (Yellow); Glucose Urine UA Negative (Negative); Ketones Urine Negative (Negative); Leukocyte Esterase Ur Trace LEU/UL (Negative); Nitrate Urine Negative (Negative); Protein Urine Negative (Negative); Urobilinogen Urine 0.2 mg/dL (<2.0)
[2022-02-07 17:05] LABS: Alanine Aminotransferase 24 U/L (6-35); Albumin Level 4.3 g/dL (3.5-5.1); Alkaline Phosphatase 60 U/L (38-126); Anion Gap 8 mmol/L (8-16); Aspartate Amino Transferase 121 U/L (14-36); Bilirubin,Total 0.4 mg/dL (0.2-1.3); Blood Urea Nitrogen 22 mg/dL (7-17); Calcium 9.6 mg/dL (8.4-10.2); Carbon Dioxide 28 mmol/L (22-30); Chloride 100 mmol/L (98-107); Cholesterol 162 mg/dL (0-200); Estimated Glomerular Filt Rate 53; Glucose 86 mg/dL (65-110); HDL Direct 48 mg/dL; Potassium 3.8 mmol/L (3.4-5.0); Sodium 136 mmol/L (137-145); Triglycerides 179 mg/dL (<150)
[2022-02-07 17:07] LABS: Bacteria Urine Trace /hpf; RBC Urine 0-2 /hpf (0-2); Squamous Epithelial Cell Urine Rare /hpf (Few)
[2022-02-07 17:11] LABS: Anisocytosis 1+ (NORMAL); Macrocytosis 1+ (NORMAL); Platelet Estimate Adequate (Adequate); Schistocytes None Seen (NORMAL)
[2022-02-07 17:15] LABS: LDL Cholesterol Direct 59 mg/dL
[2022-02-07 18:10] LABS: Free T4 Free Thyroxine 1.49 ng/mL (0.78-2.19)
== END 2022-02-07 12:04 | disposition home or self-care (01) ==
LOC: ANHWCLAB 12:05
PROVIDERS: PCP Internal Medicine; Visit Provider Internal Medicine
DX: Z13.29 Encounter for screening for other suspected endocrine disorder (principal); Z79.899 Other long term (current) drug therapy
CPT/HCPCS: 36415; 80053; 80061; 81001; 84439; 84443; 85025

== ENCOUNTER 2022-04-26 17:00 | Emergency (ER) | payer MEDICARE, SELFPAY ==
--- NOTE | ~2022-04-26 | CT_ITS ---
CT of the Abdomen and Pelvis: Indication: Abdominal pain Technique: 2.5 mm axial scans were obtained through the abdomen and pelvis following intravenous adm inistration of 100 cc of Omnipaque 350. Dose reduction technique was used on this scan by utilizing a utomated exposure control and iterative reconstruction technique. The dose-length product (DLP) was 2 76.53 mGy-cm. COMPARISON: 06/27/2021 Findings: Scans through the lung bases are unremarkable. The liver, spleen, pancreas, adrenals and kidneys are within normal limits. Gallbladder not visualize d. No evidence of aortic aneurysm. There are atherosclerotic calcifications of the aorta. No lymphade nopathy. No bowel obstruction or bowel wall thickening. Rectosigmoid anastomosis is unchanged. There is no vladimir dence to suggest acute appendicitis. Images through the pelvis were performed. Urinary bladder unremarkable. No adnexal mass seen. Small a mount of probable free fluid in the pelvis, nonspecific.. Probable mild compression deformity at the inferior endplate of L1. Impression: Small amount of free fluid in the pelvis, nonspecific. Probable mild compression deformity of the inferior endplate of L1, new from prior exam. Reviewed, dictated and finalized at location M. R AND CHASSIS INSPECTOR Impression: Small amount of free fluid in the pelvis, nonspecific. Probable mild compression deformity of the inferior endplate of L1, new from pr ior exam.
[2022-04-26 18:58] VITALS: BP 119/53; PULSE 94; RESP 16; TEMP 38.1; O2SAT 96
[2022-04-26 19:18] LABS: Basophils Percent Auto 0.4 % (0.2-1.2); Eosinophils Percent Auto 0.2 % (0-4.4); Hematocrit 25.2 % (37.0-47.0); Hemoglobin 7.8 g/dL (12.0-15.0); Immature Granulocyte Absolute 0.08 K/mm3 (0.00-0.031); Lymphocytes Absolute Auto 1.01 K/mm3 (0.9-3.2); Lymphocytes Percent Auto 12.1 % (18.3-44.2); Mean Corpuscular Hemoglobin 34.1 pg (26-34); Mean Platelet Volume 10.5 fl (7.4-10.4); Monocytes Percent Auto 12.2 % (2.6-8.5); Neutrophils Absolute Auto 6.2 K/mm3 (1.3-6.7); Neutrophils Percent Auto 74.1 % (45.5-73.1); Nucleated Red Blood Cells Perc 0.2 % (0.0-0.2); Platelet Count Result 185 k/mm3 (150-375); Red Blood Count 2.29 M/mm3 (4.2-5.4); Red Cell Distribution Width 18.2 % (11.5-14.5); White Blood Count 8.4 K/mm3 (4.5-10.0)
[2022-04-26 19:29] LABS: Alanine Aminotransferase 27 U/L (6-35); Albumin Level 3.3 g/dL (3.5-5.1); Alkaline Phosphatase 93 U/L (38-126); Anion Gap 11 mmol/L (8-16); Aspartate Amino Transferase 51 U/L (14-36); Bilirubin,Total 0.8 mg/dL (0.2-1.3); Blood Urea Nitrogen 13 mg/dL (7-17); Calcium 9.1 mg/dL (8.4-10.2); Carbon Dioxide 26 mmol/L (22-30); Chloride 103 mmol/L (98-107); Estimated CRCL calculation 35 ml/min; Estimated Glomerular Filt Rate > 60; Glucose 118 mg/dL (65-110); Lipase 36 U/L (23-300); Potassium 4.2 mmol/L (3.4-5.0); Sodium 140 mmol/L (137-145)
[2022-04-26 22:09] VITALS: BP 134/64; PULSE 86; RESP 20; TEMP 37.3; O2SAT 100
--- NOTE | 2022-04-27 01:34 | ED.ABDPAIN ---
HPI - Abdominal Pain General Chief Complaint: Abdominal Pain Stated Complaint: hernia repair surgery 03/27/22 fever and pain Time Seen by Provider: 04/27/22 01:23 History of Present Illness HPI narrative: 81-year-old female with a history of recurrent diverticulitis s/p colectomy and recent incisional hernia repair with mesh at [facility] for evaluation of diffuse lower abdominal pain over the past several days. She states that she has had having abdominal pain ever since the surgery but over the past 5 days it has acutely worsened and become severe. She was prescribed Aulander in the postoperative period but has ran out and is now taking tramadol, states it is not helping her pain. Yesterday she states she had a fever of 101. Also notes many episodes of loose stools. No nausea, vomiting, dysuria, urgency or frequency. She was seen at [facility] on 04/07 for nausea and vomiting and had imaging of her abdomen pelvis that she says was reassuring but do not have these records to compare. Related Data Home Medications Medication Instructions Recorded Confirmed cetirizine 10 mg tablet (Zyrtec) 10 mg PO DAILY 01/20/19 04/26/22 methylcellulose (laxative) 500 mg 500 mg PO DAILY 01/20/19 04/26/22 tablet (Citrucel) cyanocobalamin (vitamin B-12) 1,000 mcg PO DAILY 01/21/19 04/26/22 1,000 mcg capsule exemestane 25 mg tablet 25 mg PO DAILY 01/21/19 04/26/22 multivitamin 1 cap PO DAILY 01/21/19 04/26/22 nortriptyline 10 mg capsule 10 mg PO DAILY 01/08/20 04/26/22 acetaminophen 500 mg tablet 500 mg PO QID PRN Pain 02/05/20 04/26/22 (Tylenol Extra Strength) aspirin 81 mg capsule 81 mg PO DAILY 01/27/21 04/26/22 cholecalciferol (vitamin D3) 50 2,400 unit PO DAILY 09/12/21 04/26/22 mcg (2,000 unit) capsule ezetimibe 10 mg tablet (Zetia) 10 mg PO DAILY 09/12/21 04/26/22 hyaluronic acid 100 mg BYMOUTH 09/12/21 04/26/22 carvedilol 12.5 mg tablet (Coreg) 25 mg PO Q12H 04/25/22 04/26/22 Allergies Allergy/AdvReac Type Severity Reaction Status Date / Time azithromycin Allergy Intermediate Rash Verified 04/25/22 14:19 baclofen Allergy Intermediate Rash Verified 04/25/22 14:19 Penicillins Allergy Intermediate Rash Verified 04/25/22 14:19 propoxyphene Allergy Intermediate Rash Verified 04/25/22 14:19 Pzgmsgn-UOL-ZzU Reductase Allergy Intermediate Rash Verified 04/25/22 14:19 Inhibitor [Kcpfums-Cfy-Nuz Reductase Inhibitor] ibuprofen AdvReac Gastrointestinal Verified 04/25/22 14:19 Upset COCONUT AdvReac Mild GAGS Uncoded 04/25/22 14:19 Review of Systems Review of Systems: Gen.: Denies fevers or chills Eyes: Denies eye pain or visual change ENT: Denies congestion Respiratory: Denies shortness of breath or cough CV: Denies chest pain or palpitations GI: Denies abdominal pain nausea, emesis or diarrhea denies burning, urgency, frequency or hematuria Musculoskeletal: Denies back pain or muscle pain Neuro: Denies numbness, tingling, weakness or focal weakness Skin: Denies rash Except as documented, all other systems reviewed and negative [facility] Past Medical History Medical History (Updated 04/27/22 @ 05:07 by Susy Sanchez PA-C) Abdominal hernia Abdominal pain Abnormal finding of blood chemistry, unspecified Anxiety with depression ASHD (arteriosclerotic heart disease) Asthma Back pain Benign essential hypertension BMI 23.0-23.9, adult BMI 25.0-25.9,adult Borderline abnormal TFTs Bronchitis (12/19/18) Cervicalgia Chronic abdominal pain Chronic abdominal pain Chronic diarrhea Colon cancer screening Cough Diarrhea Diverticulitis Dizziness DJD (degenerative joint disease), multiple sites BONNER (dyspnea on exertion) Dysuria Encounter for routine adult health examination with abnormal findings Encounter for routine adult health examination without abnormal findings Follow up GERD (gastroesophageal reflux disease) Heart murmur Hiatal hernia History of breast cancer in female Hornet sting Hx of
[2022-04-27 02:25] LABS: Lactic Acid Reflex 1.2 mmol/L (0.7-2.0)
[2022-04-27] MEDS: MORPHINE SULFATE (*CRX) 4 MG/ML INJ IV PUSH (03:37)
[2022-04-27] MEDS: SODIUM CHLORIDE 0.9% IV 1,000 ML 999 ML IV CONT (03:58)
[2022-04-27] MEDS: ONDANSETRON INJ 4 MG/2 ML VIAL IV PUSH (03:58)
[2022-04-27 05:04] LABS: Appearance Urine Cloudy (Clear); Bacteria Urine 4+ /hpf; Bilirubin Urine Negative (Negative); Blood Urine 3+ (Negative); Color Urine Yellow (Yellow); Glucose Urine UA Negative (Negative); Ketones Urine Negative (Negative); Leukocyte Esterase Ur 2+ LEU/UL (Negative); Need Manual Microscopic Reviewed; Nitrate Urine Positive (Negative); Non Pathogenic Casts 0-2; Protein Urine 2+ mg/dL (Negative); RBC Urine 21-50 /hpf (0-2); Specific Grav Ur 1.061 (1.001-1.035); Squamous Epithelial Cell Urine None seen /hpf (Few); WBC Urine >100 /hpf
[2022-04-27 05:05] LABS: Add Urine Microscopic? YES
[2022-04-27 05:40] VITALS: BP 127/64; PULSE 76; RESP 16; O2SAT 97
[2022-04-27 06:53] LABS: Influenza A QL RT-PCR Negative (Negative); Influenza B QL RT-PCR Negative (Negative); SARS-CoV-2 RNA PCR Negative
== END 2022-04-27 06:11 | disposition home or self-care (01) ==
PROVIDERS: Emergency Medicine; Emergency Provider Physician Assistant; PCP Internal Medicine
DX: N39.0 Urinary tract infection, site not specified (principal); Z20.822 Contact with and (suspected) exposure to COVID-19; I10 Essential (primary) hypertension; I25.10 Atherosclerotic heart disease of native coronary artery without angina pectoris; E78.5 Hyperlipidemia, unspecified; I89.0 Lymphedema, not elsewhere classified; J45.30 Mild persistent asthma, uncomplicated; G62.9 Polyneuropathy, unspecified; E53.8 Deficiency of other specified B group vitamins; E55.9 Vitamin D deficiency, unspecified; K21.9 Gastro-esophageal reflux disease without esophagitis; K58.0 Irritable bowel syndrome with diarrhea; F41.8 Other specified anxiety disorders; Z90.13 Acquired absence of bilateral breasts and nipples; Z90.49 Acquired absence of other specified parts of digestive tract; Z96.653 Presence of artificial knee joint, bilateral; Z85.3 Personal history of malignant neoplasm of breast
CPT/HCPCS: 36415; 74177; 80053; 81001; 83605; 83690; 85025; 86850; 86900; 86901; 87077; 87086; 87186; 87636; 96361; 96365; 96368; 96375; 99284; J0131; J0696; J2270; J2405; J7030; Q9967

== ENCOUNTER 2022-05-02 11:27 | Outpatient (CLI) | payer MEDICARE, SELFPAY ==
[2022-05-02 17:55] LABS: Free T4 Free Thyroxine 1.12 ng/mL (0.78-2.19)
[2022-05-03 16:05] LABS: Iron 76 ug/dL (37-170)
[2022-05-03 16:16] LABS: Percent Iron Saturation 24 % (20-50)
[2022-05-06 03:52] LABS: Thyroglobulin 16.5 ng/mL (2.8-40.9); Thyroglobulin Antibodies <1 IU/mL (<=1); Thyroid Peroxidase Antibodies <1 IU/mL (<9)
[2022-05-06 04:14] LABS: Triiodothyronine T3 Free 2.2 pg/mL (2.3-4.2)
== END 2022-05-02 11:28 | disposition home or self-care (01) ==
LOC: ANHWCLAB 11:30
PROVIDERS: PCP Internal Medicine; Visit Provider Internal Medicine
DX: R94.6 Abnormal results of thyroid function studies (principal); R53.83 Other fatigue; R79.9 Abnormal finding of blood chemistry, unspecified; Z79.899 Other long term (current) drug therapy
CPT/HCPCS: 36415; 82728; 83540; 83550; 84432; 84439; 84443; 84481; 86376; 86800

== ENCOUNTER 2022-05-04 12:04 | Outpatient (CLI) | payer MEDICARE, SELFPAY ==
--- NOTE | ~2022-05-04 | XR_ITS ---
[id number]_CR DATE: 05/04/2022 12:38 INDICATION: Landed on left side during a fall 4 days ago. Left rib pain. TECHNIQUE: PA chest. 3 views of the left ribs. COMPARISON: 02/01/2022 PA and lateral chest FINDINGS: Subacute or old anterior left ninth rib fracture is suggested. No acute left rib fracture i s detected. There is diffuse osteopenia. No pulmonary infiltrate or consolidation, pleural effusion or pulmonary vascular congestion or pneumo thorax. Mild cardiomegaly. Surgical clips, right axillary area consistent with prior axillary node dissection. IMPRESSION: No acute left rib fractures noted. Suggestion of a subtle subacute or old anterior left n inth rib fracture Osteopenia Reviewed, dictated and finalized at Location A. Reviewed, dictated and finalized at location L. MOLOGY PROFESSOR IMPRESSION: No acute left rib fractures noted. Suggestion of a subtle subacute or old anterior left ninth rib fracture Osteopenia
== END 2022-05-04 12:05 | disposition home or self-care (01) ==
PROVIDERS: PCP Internal Medicine; Visit Provider Internal Medicine
DX: R07.81 Pleurodynia (principal); S29.9XXA Unspecified injury of thorax, initial encounter; X58.XXXA Exposure to other specified factors, initial encounter; M85.88 Other specified disorders of bone density and structure, other site
CPT/HCPCS: 71101

== ENCOUNTER 2022-05-10 11:26 | Outpatient (CLI) | payer MEDICARE, SELFPAY ==
--- NOTE | ~2022-05-10 | US_ITS ---
EXAMINATION: US carotid duplex BI DATE: 05/10/2022 12:06 INDICATION: Carotid bruit. TECHNIQUE: Grayscale, color Doppler, and pulsed Doppler images of the cervical carotid arteries were obtained. The degree of vessel stenosis is placed in one of the following categories: normal, <50%, 5 0-69%, >=70% but less than near-occlusion, near-occlusion, or total occlusion. Note that percent sten osis relative to normal distal artery lumen diameter is indirectly measured from velocity measurement s as described by Andres, et al. Radiology 2003; 229:340-346. COMPARISON: None. FINDINGS: RIGHT: The right common carotid artery (CCA) peak systolic velocity (PSV) is 85 cm/s. The right internal car otid artery (ICA) PSV is 64 cm/s. The right ICA end-diastolic velocity (EDV) is 18 cm/s. The right IC A/CCA PSV ratio is 0.7. Grayscale and color Doppler images yield an estimate of <50% diameter reducti on from plaque in the ICA. There is antegrade flow in the right vertebral artery. LEFT: The left CCA PSV is 82 cm/s. The left ICA PSV is 60 cm/s. The left ICA EDV is 19 cm/s. The left ICA/C CA PSV ratio is 0.7. Grayscale and color Doppler images yield an estimate of <50% diameter reduction from plaque in the ICA. There is antegrade flow in the left vertebral artery. IMPRESSION: 1. <50% stenosis in the right internal carotid artery. 2. <50% stenosis in the left internal carotid artery. Reviewed, dictated and finalized at location A.
== END 2022-05-10 11:27 | disposition home or self-care (01) ==
LOC: ANHIMG 11:28
PROVIDERS: PCP Internal Medicine; Visit Provider Internal Medicine
DX: R01.1 Cardiac murmur, unspecified (principal); R09.89 Other specified symptoms and signs involving the circulatory and respiratory systems; I65.23 Occlusion and stenosis of bilateral carotid arteries
CPT/HCPCS: 93880

== ENCOUNTER 2022-05-15 16:32 | Inpatient (IN) | payer MEDICARE, SELFPAY ==
[2022-05-15] VITALS (18 sets, daily range): BP systolic 127–144; BP diastolic 62–76; PULSE 77–109; RESP 12–18; TEMP 37.1; O2SAT 94–100
--- NOTE | ~2022-05-15 | MR_ITS ---
MRI of the brain Clinical History: Mental status change Technique: Axial and sagittal T1-weighted images were acquired. These were followed by axial T2-weigh tawana, diffusion weighted, gradient, and FLAIR images. Following intravenous administration of 10 cc Mu ltiHance gadolinium, T1-weighted fat-sat imaging was performed in the axial and coronal planes. Findings: There is no acute infarct, intracranial hemorrhage, or mass lesion. Moderate chronic white matter changes are present in the periventricular white matter bilaterally. Ventricles and subarachnoid spaces are mildly dilated. Orbits are unremarkable. Paranasal sinuses and mastoid air cells are clear. Major intracranial flow voids are intact. Sagittal midline structures are intact. No abnormal postcontrast enhancement identified. IMPRESSION: No acute abnormality. Moderate chronic microvascular ischemic change and mild generalized atrophy. Reviewed, dictated and finalized at [facility].
--- NOTE | ~2022-05-15 | CT_ITS ---
EXAMINATION: CT brain wo con DATE: 05/15/2022 20:31 INDICATION: confusion . TECHNIQUE: Computed tomography (CT) of the head was performed without intravenous contrast. The mA wa s adjusted according to patient size. Iterative reconstruction technique was employed. The dose-lengt h product was 605.33 mGy-cm. COMPARISON: 02/05/2020. FINDINGS: No acute intracranial hemorrhage or extra-axial fluid collection. No hydrocephalus, mass, or herniation. No acute ischemic infarct. Unremarkable dural venous sinus attenuation. No acute osseous abnormality. The aerated spaces are clear. Moderate atrophy and chronic white matter change. Atherosclerotic intracranial calcification. 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 Bilateral lens rep lacements. IMPRESSION: No acute intracranial process. Reviewed, dictated and finalized at location K.
--- NOTE | ~2022-05-15 | XR_ITS ---
EXAMINATION: XR chest 2V Exam Date/Time: 05/15/2022 20:00 CDT HISTORY: confusion Comparison: 02/01/2022. RESULT: Lines, tubes, and devices: Right axillary surgical clips. Lungs and pleura: Senescent changes, otherwise clear. Cardiomediastinal silhouette: Stable. Other: No acute osseous or upper abdominal finding. IMPRESSION: No acute cardiopulmonary process. Reviewed, dictated and finalized at location K.
--- NOTE | 2022-05-15 16:40 | ECG_ITS ---
Measurements Intervals [place] Rate: 76 P: 40 NV: 154 QRS: -24 QRSD: 134 T: 89 QT: 408 QTc: 461 Interpretive Statements SINUS RHYTHM POSSIBLE LEFT ATRIAL ENLARGEMENT LEFT BUNDLE BRANCH BLOCK INFERIOR INFARCT OR DUE TO LBBB BASELINE ARTIFACT- I, III, AVR, AVL, AVF ABNORMAL ECG COMPARED TO ECG 06/27/2021 12:16:11 NO SIGNIFICANT CHANGES Electronically Signed On 05-15-2022 16:57:37 CDT by Onofre Dior D.O.
[2022-05-15 17:02] LABS: Basophils Percent Auto 0.8 % (0.2-1.2); Eosinophils Absolute Auto 0.1 K/mm3 (0-0.3); Hematocrit 24.5 % (37.0-47.0); Hemoglobin 7.5 g/dL (12.0-15.0); Immature Granulocyte Absolute 0.03 K/mm3 (0.00-0.031); Immature Granulocyte Percent A 0.6 % (0-0.5); Lymphocytes Absolute Auto 1.47 K/mm3 (0.9-3.2); Lymphocytes Percent Auto 29.8 % (18.3-44.2); Mean Corpuscular HGB Conc 30.6 g/dl (32-36); Mean Corpuscular Hemoglobin 33.8 pg (26-34); Mean Corpuscular Volume 110.4 fl (80-100); Mean Platelet Volume 9.9 fl (7.4-10.4); Monocytes Absolute Auto 1.2 K/mm3 (0.1-0.6); Monocytes Percent Auto 23.5 % (2.6-8.5); Neutrophils Absolute Auto 2.1 K/mm3 (1.3-6.7); Neutrophils Percent Auto 43.3 % (45.5-73.1); Nucleated Red Blood Cells Perc 0.6 % (0.0-0.2); Platelet Count Result 209 k/mm3 (150-375); Red Blood Count 2.22 M/mm3 (4.2-5.4); Red Cell Distribution Width 17.8 % (11.5-14.5); White Blood Count 4.9 K/mm3 (4.5-10.0)
[2022-05-15 17:09] LABS: Alanine Aminotransferase 20 U/L (6-35); Albumin Level 3.7 g/dL (3.5-5.1); Alkaline Phosphatase 110 U/L (38-126); Anion Gap 11 mmol/L (8-16); Aspartate Amino Transferase 56 U/L (14-36); Bilirubin,Total 0.6 mg/dL (0.2-1.3); Blood Urea Nitrogen 19 mg/dL (7-17); Carbon Dioxide 28 mmol/L (22-30); Chloride 101 mmol/L (98-107); Estimated CRCL calculation 26 ml/min; Estimated Glomerular Filt Rate 48; Glucose 93 mg/dL (65-110); Sodium 140 mmol/L (137-145)
[2022-05-15 17:20] LABS: INR 1.5; Partial Thromboplastin Time 31.1 SECONDS (22.3-36.8); Prothrombin Time 17.1 Seconds (11.1-14.7)
[2022-05-15 17:46] LABS: Hypochromasia 1+ (NORMAL); Platelet Estimate Adequate (Adequate); Schistocytes None Seen (NORMAL)
[2022-05-15 17:47] LABS: Anisocytosis 3+ (NORMAL)
[2022-05-15 19:13] LABS: Appearance Urine Clear (Clear); Bacteria Urine None Seen /hpf; Bilirubin Urine Negative (Negative); Blood Urine 3+ (Negative); Color Urine Yellow (Yellow); Glucose Urine UA Negative (Negative); Hyaline Casts Urine Present /lpf; Ketones Urine Negative (Negative); Leukocyte Esterase Ur Negative LEU/UL (Negative); Nitrate Urine Negative (Negative); Protein Urine 2+ mg/dL (Negative); RBC Urine 21-50 /hpf (0-2); Specific Grav Ur 1.018 (1.001-1.035); Squamous Epithelial Cell Urine None seen /hpf (Few); Urobilinogen Urine 0.2 mg/dL (<2.0); WBC Urine 0-5 /hpf; pH Urine 5.5 (5.0-9.0)
[2022-05-15 19:49] LABS: Add Urine Microscopic? YES
--- NOTE | 2022-05-15 20:01 | ED.GENADULT ---
HPI - General Adult General Chief complaint: Altered Mental Status Stated complaint: CONFUSION TODAY Time Seen by Provider: 05/15/22 18:30 History of Present Illness HPI narrative: Patient is an 81-year-old female who presents ER with her daughter. The patient has had increased confusion today. She forgot that her had a doctor's appointment though she had already told him to get in the car for it. She had spoken to her daughter in the ER room thinking she is here to be checked for . She is also had other momentary memory issues throughout the day. Currently oriented x4. She is in no distress. Was evaluated in the ER recently for a UTI. She was also found to be anemic. She followed up with her doctor who started her on iron and has also started her on levothyroxine for hypothyroidism. No additional changes to her medical health other than the confusion. No fevers or chills or sweats. Family concerned there is UTI. No previous diagnosis of dementia. Related Data Home Medications Medication Instructions Recorded Confirmed cetirizine 10 mg tablet (Zyrtec) 10 mg PO DAILY 01/20/19 05/04/22 methylcellulose (laxative) 500 mg 500 mg PO DAILY 01/20/19 05/04/22 tablet (Citrucel) cyanocobalamin (vitamin B-12) 1,000 mcg PO DAILY 01/21/19 05/04/22 1,000 mcg capsule multivitamin 1 cap PO DAILY 01/21/19 05/04/22 nortriptyline 10 mg capsule 10 mg PO DAILY 01/08/20 05/04/22 acetaminophen 500 mg tablet 500 mg PO QID PRN Pain 02/05/20 05/04/22 (Tylenol Extra Strength) aspirin 81 mg capsule 81 mg PO DAILY 01/27/21 05/04/22 cholecalciferol (vitamin D3) 50 2,400 unit PO DAILY 09/12/21 05/04/22 mcg (2,000 unit) capsule ezetimibe 10 mg tablet (Zetia) 10 mg PO DAILY 09/12/21 05/04/22 hyaluronic acid 100 mg BYMOUTH 09/12/21 05/04/22 carvedilol 12.5 mg tablet (Coreg) 25 mg PO Q12H 04/25/22 05/04/22 Allergies Allergy/AdvReac Type Severity Reaction Status Date / Time azithromycin Allergy Intermediate Rash Verified 04/25/22 14:19 baclofen Allergy Intermediate Rash Verified 04/25/22 14:19 Penicillins Allergy Intermediate Rash Verified 04/25/22 14:19 propoxyphene Allergy Intermediate Rash Verified 04/25/22 14:19 Ujpqvoy-NZI-EmX Reductase Allergy Intermediate Rash Verified 04/25/22 14:19 Inhibitor [Xwdzkhg-Niu-Iew Reductase Inhibitor] ibuprofen AdvReac Gastrointestinal Verified 04/25/22 14:19 Upset COCONUT AdvReac Mild GAGS Uncoded 04/25/22 14:19 Review of Systems Review of Systems: All systems reviewed & are unremarkable except as noted in HPI and below Constitutional: Constitutional: Denies chills and Denies fever(s) Cardiovascular: Cardiovascular: Denies chest pain, Denies rapid heart rate and Denies radiating jaw, neck or arm pain Respiratory: Respiratory: Denies cough and Denies dyspnea Gastrointestinal: Gastrointestinal: Denies abdominal pain, Denies nausea and Denies vomiting Genitourinary: Genitourinary: Denies nocturia and Denies dysuria [facility] Past Medical History Medical History (Updated 05/15/22 @ 21:16 by Henri Gao MD) Abdominal hernia Abdominal pain Abnormal finding of blood chemistry, unspecified Anxiety with depression ASHD (arteriosclerotic heart disease) Asthma Back pain Benign essential hypertension BMI 23.0-23.9, adult BMI 25.0-25.9,adult Borderline abnormal TFTs Bronchitis (12/19/18) Cervicalgia Chronic abdominal pain Chronic abdominal pain Chronic diarrhea Colon cancer screening Cough Diarrhea Diverticulitis Dizziness DJD (degenerative joint disease), multiple sites BONNER (dyspnea on exertion) Dysuria Encounter for routine adult health examination with abnormal findings Encounter for routine adult health examination without abnormal findings Follow up GERD (gastroesophageal reflux disease) Heart murmur Hiatal hernia History of breast cancer in female Hornet sting Hx of breast cancer Hyperlipidemia Hypersomnia, idiopathic Hypothyroidism (acquired)
[2022-05-15 20:48] LABS: Influenza A QL RT-PCR Negative (Negative); Influenza B QL RT-PCR Negative (Negative); SARS-CoV-2 RNA PCR Negative
[2022-05-15] MEDS: SODIUM CHLORIDE 0.9% IV 1,000 ML 999 ML IV CONT (22:29)
[2022-05-15 23:15] LABS: Total Triiodothyronine (T3) 0.96 NG/ML (0.97-1.69)
[2022-05-15 23:46] LABS: Free T4 Free Thyroxine 2.12 ng/mL (0.78-2.19)
[2022-05-16] VITALS (15 sets, daily range): BP systolic 131–144; BP diastolic 56–69; PULSE 66–123; RESP 17–20; TEMP 36.4–37; O2SAT 95–100; BMI 21.7
--- NOTE | 2022-05-16 00:25 | ADMGEN ---
This patient, Di Woods, was admitted to Medical Room 243-01. Patient/family oriented to hospital policies and general routines including ID bracelet, bed and alarms, visiting hours, pain management, procedures, bathroom and other care routines, personal items, smoking policy, room service/diet, and visiting hours. Information on how to activate the Rapid Response Team has been discussed. Patient/Family are encouraged to report perceived risks to care and to ask questions if they do not understand what they are told or what they should do.
[2022-05-16 07:51] LABS: Hematocrit 25.9 % (37.0-47.0); Hemoglobin 7.8 g/dL (12.0-15.0); Mean Corpuscular HGB Conc 30.1 g/dl (32-36); Mean Corpuscular Hemoglobin 33.9 pg (26-34); Mean Corpuscular Volume 112.6 fl (80-100); Mean Platelet Volume 9.9 fl (7.4-10.4); Platelet Count Result 200 k/mm3 (150-375); Red Cell Distribution Width 17.7 % (11.5-14.5); White Blood Count 4.2 K/mm3 (4.5-10.0)
[2022-05-16] MEDS: ASPIRIN 81 MG ENTERIC TABLET PO (08:05)
[2022-05-16] MEDS: LEVOTHYROXINE SODIUM 100 MCG TABLET PO (08:05)
[2022-05-16] MEDS: CHOLECALCIFEROL 400 UNITS TABLET (VIT D) 2400 UNITS PO (08:05)
[2022-05-16] MEDS: FERROUS SULFATE 324 MG TABLET PO ×2 (08:05→17:52)
[2022-05-16] MEDS: CLOPIDOGREL BISULFATE 75 MG TABLET PO (08:05)
[2022-05-16 08:06] LABS: Anion Gap 13 mmol/L (8-16); Blood Urea Nitrogen 15 mg/dL (7-17); Calcium 9.8 mg/dL (8.4-10.2); Carbon Dioxide 25 mmol/L (22-30); Chloride 103 mmol/L (98-107); Estimated CRCL calculation 31 ml/min; Estimated Glomerular Filt Rate 60; Glucose 90 mg/dL (65-110); Potassium 4.8 mmol/L (3.4-5.0); Sodium 141 mmol/L (137-145)
[2022-05-16] MEDS: CYPROHEPTADINE HCL 4 MG TABLET PO ×2 (08:06→17:52)
[2022-05-16] MEDS: CYANOCOBALAMIN 1,000 MCG TABLET 1000 MCG PO (08:06)
[2022-05-16] MEDS: SERTRALINE HCL 50 MG TABLET PO (08:06)
[2022-05-16] MEDS: MULTIVITAMINS THERAPEUTIC TAB (*BKC) 1 TABLET PO (08:06)
[2022-05-16] MEDS: EZETIMIBE 10 MG TABLET PO (08:06)
[2022-05-16] MEDS: PANTOPRAZOLE 40 MG TABLET PO (08:06)
[2022-05-16] MEDS: MONTELUKAST SODIUM 10 MG TABLET PO (08:06)
[2022-05-16] MEDS: carvediloL 12.5 MG TABLET 25 MG PO ×2 (08:07→22:15)
--- NOTE | 2022-05-16 10:14 | WPDNEURCNPN ---
Assessment and Plan Assessment and plan (1) Acute alteration in mental status: Code(s): R41.82 - Altered mental status, unspecified Status: Acute Plan Ongoing intermittent confusion with possibility of underlying dementia which is slowly progressing we will need the complete evaluation the MRI of the brain has been done we will obtain the EEG in addition to B12 folic acid and thyroid studies and further recommendation accordingly Consult date: 05/16/22 HPI: Di Woods is a 81 year old female has been admitted to the hospital through the emergency room for the complaints of increasing confusion. Reportedly she forgot her had a doctor's appointment though she had already told him to get in the car for 8 he had spoken to her daughter in the ER thinking she is here to be checked for she has had momentary memory issues throughout the day but by the time she was in the ER examined by the physician she was awake alert oriented x4 she has been taking multiple medications at home which particularly involved carvedilol 12.5 mg each 2 tablets q.12 hours she is allergic to multiple medications she does carry the diagnosis of multiple problems including the anxiety with depression, hypertension, and peripheral neuropathy she has also undergone multiple surgeries initial exam in the emergency room was grossly nonfocal her vital signs were normal routine labs were normal is screening for the influenza A/B and stars were negative EKG was normal without any atrial fibrillation MRI of the brain has been done which is negative except the moderate chronic microvascular ischemic changes with generalized mild atrophy. Review of Systems Review of Systems: All systems reviewed & are unremarkable except as noted in HPI and below [facility] Past Medical History Medical History (Updated 05/16/22 @ 09:34 by Charis Richards, [facility]) Abdominal hernia Abdominal pain Abnormal finding of blood chemistry, unspecified Anxiety with depression ASHD (arteriosclerotic heart disease) Asthma Back pain Benign essential hypertension BMI 23.0-23.9, adult BMI 25.0-25.9,adult Borderline abnormal TFTs Bronchitis (12/19/18) Cervicalgia Chronic abdominal pain Chronic diarrhea Colon cancer screening Cough Diarrhea Diverticulitis Dizziness DJD (degenerative joint disease), multiple sites BONNER (dyspnea on exertion) Dysuria Encounter for routine adult health examination with abnormal findings Encounter for routine adult health examination without abnormal findings Follow up GERD (gastroesophageal reflux disease) Heart murmur Hiatal hernia History of breast cancer in female Hornet sting Hx of breast cancer Hyperlipidemia Hypersomnia, idiopathic Hypothyroidism (acquired) Intercostal muscle pain Irritable bowel syndrome with diarrhea Itching Left-sided chest wall pain Low hemoglobin Low hemoglobin and low hematocrit Lymphedema Malignant neoplasm of female breast Mild reactive airways disease Moderate persistent reactive airway disease with acute exacerbation Neuropathy On long term care pharmacist drug therapy Pain of right heel Peripheral polyneuropathy Post herpetic neuralgia Reactive airway disease with acute exacerbation Rhus dermatitis Rib pain on left side Right carotid bruit Shingles SOB (shortness of breath) Statin intolerance Tachycardia Tachycardia Unspecified hearing loss, bilateral UTI (urinary tract infection) Vitamin B12 deficiency Vitamin D deficiency Weight loss Surgical History Surgical History History of bilateral mastectomy History of total bilateral knee replacement Hx of resection of large bowel Hx of resection of large bowel Family History Family History Father Family history of gout Family history of lung cancer Patient's father is Malignant neoplasm of prostate Mother Hypertension Asthma Family hi
[2022-05-16] MEDS: calcium polycarbophiL 625 MG TABLET 1250 MG PO (12:37)
--- NOTE | 2022-05-16 12:44 | PC.NURSE ---
Call made to Lab regarding B12. Per lab, could not get results so sent to [facility] for further testing.
--- NOTE | 2022-05-16 16:19 | PC.NURSE ---
Call made to Neuro. Second attempt at seeing if they will be doing her EEG today.
--- NOTE | 2022-05-16 18:04 | PM.IMHP ---
H&P: HPI History of Present Illness Date/Time: 05/16/22 8:00 Chief Complaint: Confusion Narrative: 81yo female with hypertension is brought emergency room because of confusion. Patient is alert and oriented x4 although she has difficulty providing accurate history. Patient states that she is here for abdominal pain related to a fall after a hernia surgery. She gets confused about the dates. According to the ER notes, patient was brought in because of confusion. She feels out that her had a doctor's appointment though she had already told him to get in the car for the appointment. When she was in the ED, she thought she was here for test. Patient is noted to be anemic with a Hemoglobin was 7.8 earlier this month. She has a chronic macrocytosis. Iron studies were normal earlier this month. Her TSH was elevated at 21 at that time and she was started on treatment. Patient also had a CT of the abdomen pelvis on 04/27/2022 which showed no acute findings. Attempted to call the daughter and left message. A complete review systems was undertaken with the patient and she denies any acute symptoms. She does mention that she had constipation on tuning with diarrhea but this has improved. She also states that she had some dysuria recently but this is better. She did have a UTI earlier this month that was treated. In the ED, patient was hemodynamically stable. EKG showed normal sinus rhythm with left bundle branch block but no significant change from prior EKG. Chest x-ray was clear. Head CT showed no acute intracranial process. She had an MRI of the brain this morning which showed no acute abnormalities. She did have moderate chronic microvascular ischemic changes. Hemoglobin 7.5 and unchanged on repeat. White count platelet count normal. INR was 1.5 with a PT of 17.1. BUN 15 and creatinine 1.1. AST 56 with the protein of 10 TSH today is 4.8. Free T4 is normal. B12 is pending. Urinalysis showed 2+ protein and 3+ blood as well as 21-50 red cells but not consistent with UTI. Influenza and COVID were negative. Patient was admitted for further care Review of Systems Review of Systems: All systems reviewed & are unremarkable except as noted in HPI and below [facility] Past Medical History Medical History Abdominal hernia Abdominal pain Abnormal finding of blood chemistry, unspecified Anxiety with depression ASHD (arteriosclerotic heart disease) Asthma Back pain Benign essential hypertension BMI 23.0-23.9, adult BMI 25.0-25.9,adult Borderline abnormal TFTs Bronchitis (12/19/18) Cervicalgia Chronic abdominal pain Chronic diarrhea Colon cancer screening Cough Diarrhea Diverticulitis Dizziness DJD (degenerative joint disease), multiple sites BONNER (dyspnea on exertion) Dysuria Encounter for routine adult health examination with abnormal findings Encounter for routine adult health examination without abnormal findings Follow up GERD (gastroesophageal reflux disease) Heart murmur Hiatal hernia History of breast cancer in female Hornet sting Hx of breast cancer Hyperlipidemia Hypersomnia, idiopathic Hypothyroidism (acquired) Intercostal muscle pain Irritable bowel syndrome with diarrhea Itching Left-sided chest wall pain Low hemoglobin Low hemoglobin and low hematocrit Lymphedema Malignant neoplasm of female breast Mild reactive airways disease Moderate persistent reactive airway disease with acute exacerbation Neuropathy On shelter drug therapy Pain of right heel Peripheral polyneuropathy Post herpetic neuralgia Reactive airway disease with acute exacerbation Rhus dermatitis Rib pain on left side Right carotid bruit Shingles SOB (shortness of breath) Statin intolerance Tachycardia Tachycardia Unspecified hearing loss, bilateral UTI (urinary tract infection) Vitamin B12 deficiency Vitamin D deficiency Weight loss Surgical History Surgic
--- NOTE | 2022-05-16 18:37 | PC.NURSE ---
Pt family brought in medication list for pt. Quite a few medications could not be reconciled. Asked family to clarify. Unable at this time. They will look it over and bring back in for us to update med list.
[2022-05-16] MEDS: FLUTICASONE/SALMETEROL 115-21 MCG INHALER 1 PUFF 2 PUFF INHALATION (21:45)
[2022-05-17] VITALS (14 sets, daily range): BP systolic 112–135; BP diastolic 54–73; PULSE 52–90; RESP 17–20; TEMP 36.4–36.7; O2SAT 93–99
[2022-05-17 05:51] LABS: Basophils Percent Auto 0.7 % (0.2-1.2); Eosinophils Percent Auto 0.7 % (0-4.4); Hematocrit 23.6 % (37.0-47.0); Hemoglobin 7.3 g/dL (12.0-15.0); Immature Granulocyte Absolute 0.05 K/mm3 (0.00-0.031); Immature Granulocyte Percent A 1.2 % (0-0.5); Lymphocytes Percent Auto 30.6 % (18.3-44.2); Mean Corpuscular HGB Conc 30.9 g/dl (32-36); Mean Corpuscular Hemoglobin 33.6 pg (26-34); Mean Corpuscular Volume 108.8 fl (80-100); Mean Platelet Volume 10.4 fl (7.4-10.4); Monocytes Absolute Auto 0.8 K/mm3 (0.1-0.6); Monocytes Percent Auto 19.5 % (2.6-8.5); Neutrophils Percent Auto 47.3 % (45.5-73.1); Nucleated Red Blood Cells Perc 0.5 % (0.0-0.2); Platelet Count Result 193 k/mm3 (150-375); Red Blood Count 2.17 M/mm3 (4.2-5.4); Red Cell Distribution Width 17.9 % (11.5-14.5); White Blood Count 4.3 K/mm3 (4.5-10.0)
[2022-05-17 06:06] LABS: Alanine Aminotransferase 16 U/L (6-35); Albumin Level 3.4 g/dL (3.5-5.1); Alkaline Phosphatase 82 U/L (38-126); Anion Gap 13 mmol/L (8-16); Aspartate Amino Transferase 38 U/L (14-36); Bilirubin,Total 0.7 mg/dL (0.2-1.3); Blood Urea Nitrogen 16 mg/dL (7-17); Calcium 9.8 mg/dL (8.4-10.2); Carbon Dioxide 26 mmol/L (22-30); Chloride 102 mmol/L (98-107); Estimated CRCL calculation 31 ml/min; Estimated Glomerular Filt Rate 60; Glucose 90 mg/dL (65-110); Potassium 4.7 mmol/L (3.4-5.0); Sodium 141 mmol/L (137-145)
[2022-05-17] MEDS: LEVOTHYROXINE SODIUM 100 MCG TABLET PO (06:35)
[2022-05-17 07:38] LABS: Rheumatoid Factor < 8.6 IU/ML (<12)
[2022-05-17 07:39] LABS: Immunoglobulin A 4800 mg/dL (70-400); Immunoglobulin G < 270 mg/dL (700-1600); Immunoglobulin M < 25 mg/dL (40-230)
[2022-05-17] MEDS: FLUTICASONE/SALMETEROL 115-21 MCG INHALER 1 PUFF 2 PUFF INHALATION ×2 (08:10→20:56)
[2022-05-17] MEDS: MULTIVITAMINS THERAPEUTIC TAB (*BKC) 1 TABLET PO (08:53)
[2022-05-17] MEDS: FERROUS SULFATE 324 MG TABLET PO ×2 (08:53→17:00)
[2022-05-17] MEDS: PANTOPRAZOLE 40 MG TABLET PO (08:53)
[2022-05-17] MEDS: MONTELUKAST SODIUM 10 MG TABLET PO (08:53)
[2022-05-17] MEDS: CYANOCOBALAMIN 1,000 MCG TABLET 1000 MCG PO (08:53)
[2022-05-17] MEDS: SERTRALINE HCL 50 MG TABLET PO (08:53)
[2022-05-17] MEDS: EZETIMIBE 10 MG TABLET PO (08:53)
[2022-05-17] MEDS: CHOLECALCIFEROL 400 UNITS TABLET (VIT D) 2400 UNITS PO (08:54)
[2022-05-17] MEDS: CLOPIDOGREL BISULFATE 75 MG TABLET PO (08:54)
[2022-05-17] MEDS: CYPROHEPTADINE HCL 4 MG TABLET PO ×2 (08:54→17:00)
[2022-05-17] MEDS: ASPIRIN 81 MG ENTERIC TABLET PO (08:54)
[2022-05-17] MEDS: carvediloL 12.5 MG TABLET 25 MG PO ×2 (08:54→20:41)
[2022-05-17] MEDS: ACETAMINOPHEN 325 MG TABLET 650 MG PO ×2 (08:56→17:03)
--- NOTE | 2022-05-17 09:35 | WPDNEUROLOGY ---
Neurology EEG Report General Information Date of Study: 05/17/22 TEST eeg DIAGNOSIS Confusion CONDITION OF RECORDING awake drowsy and sleep EEG NUMBER [id number] CLINICAL HISTORY patient was brought into hospital for increase in confusion EEG DESCRIPTION background rhythm consists of low to medium voltage 5 to 7 hertz per 2nd theta activity with poor anterior-posterior gradient. Bilateral symmetrical sleep activity seen during sleep with symmetrical sleep spindles. Multiple movement artifacts are also noted. Non paroxysmal. Nonfocal. Nonlateralizing. Hyperventilation not done. Photic stimulation not done. IMPRESSION Abnormal record due to the absence of the normal background rhythm and due to the presence of bihemispheric theta activity, the abnormalities suggestive of underlying organic a metabolic encephalopathy the possibility of neuro degenerative process cannot be ruled out. Clinical correlation recommended. There is no evidence of any seizure-like activity throughout the tracing
[2022-05-17] MEDS: calcium polycarbophiL 625 MG TABLET 1250 MG PO (13:09)
--- NOTE | 2022-05-17 14:40 | PM.IMPN ---
Progress Note: A&P Assessment and Plan (1) Acute alteration in mental status: Code(s): R41.82 - Altered mental status, unspecified Status: Acute Assessment and Plan: Resolved, likely acute on chronic delirium with dementia Appreciate neurology consultation, EEG was abnormal but nonacute, MRI reviewed (2) Hypothyroidism (acquired): Code(s): E03.9 - Hypothyroidism, unspecified Status: Acute Assessment and Plan: TSH 4.8, improved from 21 on levothyroxine, continue to monitor outpatient (3) Anemia: Code(s): D64.9 - Anemia, unspecified Status: Acute Assessment and Plan: Persistent macrocytosis of unknown etiology, B12 and folate pending (4) Hyperproteinemia: Code(s): E88.09 - Other disorders of plasma-protein metabolism, not elsewhere classified Status: Acute Plan PT/OT eval pending, family hoping for rehab at discharge DVT prophylaxis with SCDs GI prophylaxis not indicated Code status full code Subjective Date/time seen: 05/17/22 14:40 Interval history: No overnight events noted. No chest pain or shortness of breath. No nausea, vomiting or diarrhea. No fevers or chills. Family in room and states patient needs rehab and she is unsafe to be discharged home. They do state that she appears to be back to her baseline mentation at this time. Review of Systems Review of Systems: 12 point review of systems was assessed and was negative except as noted in the HPI Exam Narrative: General: No acute distress, alert and oriented per baseline HEENT: Atraumatic, normocephalic, mucous membranes moist CV: Regular rate and rhythm, S1, S2 Lungs: Clear to auscultation bilaterally, no rales or crackles noted, no wheezes, good air entry Abdomen: Soft, nontender, nondistended Extremities: Normal to inspection Skin: No rashes noted, no lesions or wounds seen Psych: Euthymic, normal affect Neuro: Cranial nerves 2-12 grossly intact, strength +5/5 upper and lower extremities bilaterally Objective Data Vital Signs Vital Signs: Vital Signs - 24 hr 05/16/22 16:00 05/16/22 22:15 05/16/22 23:15 Temperature Pulse Rate 66 66 89 Respiratory Rate Blood Pressure Pulse Oximetry 96 Oxygen Delivery Autopap Fraction of Inspired Oxygen 05/16/22 22:00 05/16/22 20:00 05/17/22 00:00 Temperature 98.6 F Pulse Rate 83 73 76 Respiratory Rate 20 Blood Pressure 131/56 L Pulse Oximetry 99 Oxygen Delivery Fraction of Inspired Oxygen 05/17/22 04:00 05/17/22 06:00 05/17/22 08:10 Temperature 97.5 F L Pulse Rate 76 72 79 Respiratory Rate 20 18 Blood Pressure 125/54 L Pulse Oximetry 98 96 Oxygen Delivery Room Air Fraction of Inspired Oxygen 21 05/17/22 08:10 05/17/22 08:54 05/17/22 08:00 Temperature Pulse Rate 79 89 Respiratory Rate 18 Blood Pressure Pulse Oximetry Oxygen Delivery Room Air Fraction of Inspired Oxygen Intake/Output Intake/Output: Intake & Output 05/14/22 05/15/22 05/16/22 05/17/22 23:59 23:59 23:59 23:59 Intake Total 2230 540 Output Total 50 403 Balance -50 9377 540 Meds/Results Medications: Active Medications Generic Name Dose Route Start Last Admin Trade Name Freq PRN Reason Stop Dose Admin Acetaminophen 650 mg 05/15/22 21:42 05/17/22 08:56 Acetaminophen 325 Mg Tablet PO 650 mg Q4H PRN Administration Mild Pain (1-3) or Fever Albuterol 2 puff 05/16/22 06:28 Albuterol Sulfate (*Sp) Aerosol 1 Puff INHALATION QID PRN shortness of breath or wheezing Aspirin 81 mg 05/16/22 09:00 05/17/22 08:54 Aspirin 81 Mg Enteric Tablet PO 81 mg QAM [facility] Administration Calcium Polycarbophil 1,250 mg 05/16/22 12:00 05/17/22 13:09 Calcium Polycarbophil 625 Mg Tablet PO 1,250 mg DAILY@1200 [facility] Administration Carvedilol 25 mg 05/16/22 09:00 05/17/22 08:54 Carvedilol 12.5 Mg Tablet PO 2
--- NOTE | 2022-05-17 17:24 | PM.DS ---
DS: Admitting Diagnosis Discharge Date 05/18 Admitting Diagnosis ams DS: Discharge Diagnosis Discharge Diagnosis (1) Acute alteration in mental status: Code(s): R41.82 - Altered mental status, unspecified Status: Acute Assessment and Plan: Resolved, likely acute on chronic delirium with dementia Appreciate neurology consultation, EEG was abnormal but nonacute, MRI reviewed (2) Hypothyroidism (acquired): Code(s): E03.9 - Hypothyroidism, unspecified Status: Acute Assessment and Plan: TSH 4.8, improved from 21 on levothyroxine, continue to monitor outpatient (3) Anemia: Code(s): D64.9 - Anemia, unspecified Status: Acute Assessment and Plan: Persistent macrocytosis of unknown etiology, B12 and folate pending (4) Hyperproteinemia: Code(s): E88.09 - Other disorders of plasma-protein metabolism, not elsewhere classified Status: Acute Plan PT/OT eval pending, family hoping for rehab at discharge DVT prophylaxis with SCDs GI prophylaxis not indicated Code status full code DS: Summary Hospital Course Hospital Course: 81-year-old female with history of hypertension presenting to the ER with altered mental status. Family reports patient has had intermittent episodes of short-term memory loss and confusion. Most symptoms resolved upon arrival to the ER. Neurology was consulted and recommended MRI, EEG, B12, folate, TSH. Workup was completely benign. Differential includes dementia. Patient was discharged in stable condition with home health care and outpatient follow-up by Neurology and to consider neuro psychological testing. Time Spent with Patient Time attestation: Total time spent providing and/or coordinating discharge services: Exam Narrative: General: No acute distress, alert and oriented per baseline HEENT: Atraumatic, normocephalic, mucous membranes moist CV: Regular rate and rhythm, S1, S2 Lungs: Clear to auscultation bilaterally, no rales or crackles noted, no wheezes, good air entry Abdomen: Soft, nontender, nondistended Extremities: Normal to inspection Skin: No rashes noted, no lesions or wounds seen Psych: Euthymic, normal affect Neuro: Cranial nerves 2-12 grossly intact, strength +5/5 upper and lower extremities bilaterally DS: Data Data Completed and Pending Labs on day of discharge: Labs from last 24 hours 05/17/22 05/17/22 05/17/22 05:19 05:19 05:19 WBC RBC Hgb Hct MCV MCH MCHC RDW Plt Count MPV Immature Gran % (Auto) Neut % (Auto) Lymph % (Auto) Jefferson % (Auto) Eos % (Auto) Baso % (Auto) Lymph # (Auto) Jefferson # (Auto) Eos # (Auto) Baso # (Auto) Abs Immat Gran (auto) Absolute Neuts (auto) Absolute Nucleated RBC Nucleated RBC % Sodium Potassium Chloride Carbon Dioxide Anion Gap BUN Creatinine Estim Creat Clear Calc Estimated GFR Glucose Calcium Total Bilirubin AST ALT Alkaline Phosphatase Total Protein Pending Albumin Pending Svvrg-3-Meeefosil Pending Mymyd-4-Drjnjobei Pending Wyfq-6-Tibruoez Pending Uipr-3-Oppfjsss Pending Gamma Globulins Pending Abnorm Protein Band 1 Pending Abnorm Protein Band 3 Pending PEP Interpretation Pending Vitamin B12 Folate IgG < 270 L IgA 4800 H IgM < 25 L Serum Immunofixation Pending Rheumatoid Factor < 8.6 05/17/22 05/17/22 05/17/22 05:19 05:19 05:13 WBC 4.3 L RBC 2.17 L Hgb 7.3 L Hct 23.6 L MCV 108.8 H MCH 33.6 MCHC 30.9 L RDW 17.9 H Plt Count 193 MPV 10.4 Immature Gran % (Auto) 1.2 H Neut % (Auto) 47.3 Lymph % (Auto) 30.6 Jefferson % (Auto) 19.5 H Eos % (Auto) 0.7 Baso % (Auto) 0.7 Lymph # (Auto) 1.30 Jefferson # (Auto) 0.8 H Eos # (Auto) 0.0 Baso # (Auto) 0.0 Abs Immat Gran (auto) 0.05 H Absolute
[2022-05-17] MEDS: NORTRIPTYLINE HCL 10 MG CAPSULE PO (20:41)
[2022-05-18] VITALS (11 sets, daily range): BP systolic 139–143; BP diastolic 68–70; PULSE 54–84; RESP 17–18; TEMP 36.8; O2SAT 93–99
[2022-05-18] MEDS: LEVOTHYROXINE SODIUM 100 MCG TABLET PO (05:38)
[2022-05-18] MEDS: FLUTICASONE/SALMETEROL 115-21 MCG INHALER 1 PUFF 2 PUFF INHALATION (08:24)
[2022-05-18] MEDS: FERROUS SULFATE 324 MG TABLET PO ×2 (08:37→16:59)
[2022-05-18] MEDS: ASPIRIN 81 MG ENTERIC TABLET PO (08:37)
[2022-05-18] MEDS: carvediloL 12.5 MG TABLET 25 MG PO (08:37)
[2022-05-18] MEDS: CHOLECALCIFEROL 400 UNITS TABLET (VIT D) 2400 UNITS PO (08:38)
[2022-05-18] MEDS: CLOPIDOGREL BISULFATE 75 MG TABLET PO (08:39)
[2022-05-18] MEDS: CYANOCOBALAMIN 1,000 MCG TABLET 1000 MCG PO (08:39)
[2022-05-18] MEDS: CYPROHEPTADINE HCL 4 MG TABLET PO ×2 (08:40→16:59)
[2022-05-18] MEDS: EZETIMIBE 10 MG TABLET PO (08:40)
[2022-05-18] MEDS: MONTELUKAST SODIUM 10 MG TABLET PO (08:40)
[2022-05-18] MEDS: PANTOPRAZOLE 40 MG TABLET PO (08:41)
[2022-05-18] MEDS: SERTRALINE HCL 50 MG TABLET PO (08:41)
[2022-05-18] MEDS: MULTIVITAMINS THERAPEUTIC TAB (*BKC) 1 TABLET PO (08:41)
--- NOTE | 2022-05-18 11:12 | PC.NURSE ---
On 05/18/22, the student, [Vanessa Lazaro], provided care and [facility]. I have reviewed the student's documentation and agree with the findings.
--- NOTE | 2022-05-18 12:11 | WPDNEUROPN ---
Progress Note: A&P Assessment and Plan (1) Anemia: Code(s): D64.9 - Anemia, unspecified Status: Acute (2) Dementia: Code(s): F03.90 - Unspecified dementia, unspecified severity, without behavioral disturbance, psychotic disturbance, mood disturbance, and anxiety Status: Acute Plan discussed with her and her son patient has ongoing dementia with B12 deficiency will now and the supplement once the results are available and MRI does not show any stroke but changes are compatible with ongoing underlying dementia there is no evidence of any stroke, will need to be followed for the dementia, and anemia and probably seen by the field appraiser Subjective Date/time seen: 05/18/22 12:11 Interval history: 81 years old lady seen initially on May 16, 2022 for the change in the mental status on acute basis with the possibility of underlying progressive dementia, during the hospitalization routine lab studies have documented her to be anemic with hemoglobin now only 7.3 normal chemistry but protein electrophoresis is pending so as the vitamin B12 and folic acid level UA with protein urea serology negative for influenza A influenza B and sars, MRI of the brain is negative except moderate chronic microvascular ischemic changes with generalized mild atrophy and carotid ultrasound is normal Exam Narrative: clinically remains unchanged Objective Data Vital Signs Vital Signs: Vital Signs - 24 hr 05/17/22 15:16 05/17/22 15:40 05/17/22 15:44 Temperature 36.6 C Pulse Rate 90 88 Respiratory Rate 18 18 Blood Pressure 123/73 112/59 L Pulse Oximetry 99 99 Oxygen Delivery Room Air Fraction of Inspired Oxygen 05/17/22 16:00 05/17/22 20:41 05/17/22 20:41 Temperature 36.7 C Pulse Rate 75 77 77 Respiratory Rate 17 Blood Pressure 135/65 Pulse Oximetry 98 Oxygen Delivery Fraction of Inspired Oxygen 05/17/22 20:58 05/17/22 20:30 05/17/22 20:00 Temperature Pulse Rate 79 Respiratory Rate Blood Pressure Pulse Oximetry 98 Oxygen Delivery Room Air Room Air Fraction of Inspired Oxygen 05/18/22 00:00 05/17/22 23:35 05/18/22 03:05 Temperature Pulse Rate 72 52 L 54 L Respiratory Rate Blood Pressure Pulse Oximetry 93 93 Oxygen Delivery Autopap Autopap Fraction of Inspired Oxygen 05/18/22 04:49 05/18/22 04:00 05/18/22 08:35 Temperature 36.8 C Pulse Rate 77 69 84 Respiratory Rate 17 Blood Pressure 143/68 H 141/68 H Pulse Oximetry 99 Oxygen Delivery Fraction of Inspired Oxygen 05/18/22 08:37 05/18/22 08:24 05/18/22 08:24 Temperature Pulse Rate 84 83 83 Respiratory Rate 18 18 Blood Pressure Pulse Oximetry 96 Oxygen Delivery Room Air Fraction of Inspired Oxygen 05/18/22 10:09 05/18/22 08:40 Temperature Pulse Rate 73 Respiratory Rate Blood Pressure Pulse Oximetry Oxygen Delivery Room Air Fraction of Inspired Oxygen Intake/Output Intake/Output: Intake & Output 05/15/22 05/16/22 05/17/22 05/18/22 23:59 23:59 23:59 23:59 Intake Total 2230 1200 220 Output Total 50 403 500 Balance -50 1827 700 220 Meds/Results Medications: Active Medications Generic Name Dose Route Start Last Admin Trade Name Freq PRN Reason Stop Dose Admin Acetaminophen 650 mg 05/15/22 21:42 05/17/22 17:03 Acetaminophen 325 Mg Tablet PO 650 mg Q4H PRN Administration Mild Pain (1-3) or Fever Albuterol 2 puff 05/16/22 06:28 Albuterol Sulfate (*Sp) Aerosol 1 Puff INHALATION QID PRN shortness of breath or wheezing Aspirin 81 mg 05/16/22 09:00 05/18/22 08:37 Aspirin 81 Mg Enteric Tablet PO 81 mg QAM [facility] Administration Calcium Polycarbophil 1,250 mg 05/16/22 12:00 05/17/22 13:09 Calcium Polycarbophil 625 Mg Tablet PO 1,250 mg DAILY@1200 [facility] Administration Carvedilol 25 mg 05/16/22 09:00 05/18/22 08:37 Carvedilol 12.5 Mg Tablet PO 25 mg Q12HR
[2022-05-18] MEDS: calcium polycarbophiL 625 MG TABLET 1250 MG PO (12:35)
[2022-05-20 23:49] LABS: Alpha 1 Globulin 0.2 g/dL (0.2-0.3); Alpha 2 Globulin 0.8 g/dL (0.5-0.9); Beta 1 Globulin 4.4 g/dL (0.4-0.6); Gamma Globulin 0.2 g/dL (0.8-1.7); Protein, Total 8.8 g/dL (6.1-8.1)
[2022-05-22 10:58] LABS: Reference Lab Test Result >2000
== END 2022-05-18 18:00 | disposition home health service (06) | DRG 884 ==
LOC: ANHED 21:16 → ANH2MED 23:33
PROVIDERS: Internal Medicine; Admitting Provider Internal Medicine; Emergency Provider Emergency Medicine; PCP Internal Medicine; Visit Provider Student in an Organized Health Care Education/Training Program
DX: F03.90 Unspecified dementia, unspecified severity, without behavioral disturbance, psychotic disturbance, mood disturbance, and anxiety (principal); F05 Delirium due to known physiological condition; A52.17 General paresis; D64.9 Anemia, unspecified; E53.8 Deficiency of other specified B group vitamins; E03.9 Hypothyroidism, unspecified; E88.09 Other disorders of plasma-protein metabolism, not elsewhere classified; I10 Essential (primary) hypertension; Z20.822 Contact with and (suspected) exposure to COVID-19; I25.10 Atherosclerotic heart disease of native coronary artery without angina pectoris; F41.8 Other specified anxiety disorders; M15.9 Polyosteoarthritis, unspecified; K21.9 Gastro-esophageal reflux disease without esophagitis; K58.0 Irritable bowel syndrome with diarrhea; G62.9 Polyneuropathy, unspecified; Z96.653 Presence of artificial knee joint, bilateral; E86.0 Dehydration; Z85.3 Personal history of malignant neoplasm of breast; Z79.82 Long term (current) use of aspirin
CPT/HCPCS: 36415; 70450; 70553; 71046; 80048; 80053; 81001; 82607; 82746; 82784; 84155; 84165; 84439; 84443; 84480; 85025; 85027; 85610; 85730; 86334; 86430; 87636; 93005; 94640; 95816; 96360; 96361; 97161; 97165; 99285; A9270; A9577; G0378; J7030

== ENCOUNTER 2022-05-25 14:01 | Outpatient (CLI) | payer MEDICARE, SELFPAY ==
[2022-05-25 14:54] LABS: Basophils Percent Auto 0.5 % (0.2-1.2); Eosinophils Percent Auto 0.6 % (0-4.4); Hematocrit 25.4 % (37.0-47.0); Hemoglobin 7.5 g/dL (12.0-15.0); Immature Granulocyte Absolute 0.08 K/mm3 (0.00-0.031); Immature Granulocyte Percent A 1.3 % (0-0.5); Lymphocytes Absolute Auto 1.11 K/mm3 (0.9-3.2); Lymphocytes Percent Auto 17.9 % (18.3-44.2); Mean Corpuscular HGB Conc 29.5 g/dl (32-36); Mean Corpuscular Volume 118.7 fl (80-100); Mean Platelet Volume 10.4 fl (7.4-10.4); Monocytes Absolute Auto 1.1 K/mm3 (0.1-0.6); Monocytes Percent Auto 18.4 % (2.6-8.5); Neutrophils Absolute Auto 3.8 K/mm3 (1.3-6.7); Neutrophils Percent Auto 61.3 % (45.5-73.1); Nucleated Red Blood Cells Absolute Auto 0.1 K/mm3 (0.0-0.012); Nucleated Red Blood Cells Perc 0.8 % (0.0-0.2); Platelet Count Result 190 k/mm3 (150-375); Red Blood Count 2.14 M/mm3 (4.2-5.4); Red Cell Distribution Width 18.8 % (11.5-14.5); White Blood Count 6.2 K/mm3 (4.5-10.0)
[2022-05-25 15:03] LABS: Anion Gap 15 mmol/L (8-16); Blood Urea Nitrogen 10 mg/dL (7-17); Calcium 9.7 mg/dL (8.4-10.2); Carbon Dioxide 24 mmol/L (22-30); Chloride 102 mmol/L (98-107); Estimated Glomerular Filt Rate > 60; Glucose 96 mg/dL (65-110); Potassium 4.2 mmol/L (3.4-5.0); Sodium 141 mmol/L (137-145)
[2022-05-25 15:10] LABS: Hypochromasia 1+ (NORMAL); Platelet Estimate Adequate (Adequate)
[2022-05-25 15:11] LABS: Macrocytosis 2+ (NORMAL); Schistocytes None Seen (NORMAL)
[2022-05-25 15:12] LABS: Anisocytosis 2+ (NORMAL); Atypical Lymphocytes Present
== END 2022-05-25 14:02 | disposition home or self-care (01) ==
LOC: ANHLAB 14:03
PROVIDERS: PCP Internal Medicine; Visit Provider Internal Medicine
DX: R41.89 Other symptoms and signs involving cognitive functions and awareness (principal); Z79.899 Other long term (current) drug therapy; D50.9 Iron deficiency anemia, unspecified; D64.9 Anemia, unspecified
CPT/HCPCS: 36415; 80048; 85025; 86850; 86900; 86901; 86923

== ENCOUNTER 2022-05-26 07:32 | Outpatient (RCR) | payer MEDICARE, SELFPAY ==
--- NOTE | 2022-05-25 15:30 | PC.NURSE ---
H&H OF 7.5/25.4 ON 05/25/[address] DEAN' OFFICE. PREVIOUSLY RECEIVED BLOOD TRANSFUSION ORDERS STATE GIVE 1 UNIT PRBC'S 05/26/22, BUT DEPENDING ON HH, MAY NEED 2 UNITS OF PRBC'S. PER DR. DEAN, GIVE 2 UNITS OF PRBC'S ON 05/26/22 INSTEAD OF JUST 1 UNIT.
[2022-05-26] VITALS (10 sets, daily range): BP systolic 97–124; BP diastolic 43–76; PULSE 63–74; RESP 16; TEMP 36.6–37.1; O2SAT 97–100
[2022-05-26] MEDS: SODIUM CHLORIDE 0.9% IV 250 ML 30 ML IV CONT (08:00)
== END 2022-08-24 23:59 | disposition home or self-care (01) ==
LOC: ANHCPCTRAN 07:32
PROVIDERS: PCP Internal Medicine; Visit Provider Internal Medicine
DX: D64.9 Anemia, unspecified (principal)
CPT/HCPCS: 36415; 36430; 86923; J7050; P9016

== ENCOUNTER 2022-06-28 15:37 | Outpatient (CLI) | payer MEDICARE, SELFPAY ==
[2022-06-28 16:54] LABS: Cholesterol 75 mg/dL (0-200); HDL Direct 22 mg/dL; Triglycerides 205 mg/dL (<150)
[2022-06-28 17:04] LABS: Hemoglobin A1C 5.5 % (<5.7)
[2022-06-28 17:24] LABS: Thyroid Stimulating Hormone 0.023 uIU/mL (0.465-4.680)
[2022-06-28 17:29] LABS: Free T4 Free Thyroxine 2.55 ng/mL (0.78-2.19)
[2022-06-28 18:25] LABS: LDL Cholesterol Direct < 30 mg/dL
== END 2022-06-28 15:38 | disposition home or self-care (01) ==
LOC: ANHLAB 15:39
PROVIDERS: PCP Internal Medicine; Visit Provider Internal Medicine
DX: R94.6 Abnormal results of thyroid function studies (principal); R73.09 Other abnormal glucose; Z79.899 Other long term (current) drug therapy; E78.2 Mixed hyperlipidemia
CPT/HCPCS: 36415; 80061; 83036; 84439; 84443

== ENCOUNTER 2022-11-02 14:33 | Outpatient (CLI) | payer MEDICARE, SELFPAY ==
[2022-11-02 15:22] LABS: Appearance Urine Clear (Clear); Bacteria Urine None Seen /hpf; Bilirubin Urine Negative (Negative); Blood Urine Negative (Negative); Color Urine Yellow (Yellow); Glucose Urine UA Negative (Negative); Ketones Urine Negative (Negative); Leukocyte Esterase Ur Trace LEU/UL (Negative); Nitrate Urine Negative (Negative); Non Pathogenic Casts 0-2; Protein Urine Negative (Negative); RBC Urine 0-2 /hpf (0-2); Specific Grav Ur 1.008 (1.001-1.035); Squamous Epithelial Cell Urine None seen /hpf (Few); Urobilinogen Urine 0.2 mg/dL (<2.0); WBC Urine 0-5 /hpf; pH Urine 6.5 (5.0-9.0)
[2022-11-02 15:24] LABS: Add Urine Microscopic? YES
[2022-11-02 17:50] LABS: Cholesterol 195 mg/dL (0-200); HDL Direct 44 mg/dL; Triglycerides 248 mg/dL (<150)
[2022-11-02 17:58] LABS: Free T4 Free Thyroxine 1.39 ng/mL (0.78-2.19)
[2022-11-02 18:03] LABS: LDL Cholesterol Direct 109 mg/dL
[2022-11-02 18:13] LABS: Hemoglobin A1C 5.5 % (<5.7)
== END 2022-11-02 14:34 | disposition home or self-care (01) ==
LOC: ANHLAB 14:38
PROVIDERS: PCP Internal Medicine; Visit Provider Internal Medicine
DX: I50.9 Heart failure, unspecified (principal); E78.5 Hyperlipidemia, unspecified; R94.6 Abnormal results of thyroid function studies; Z13.1 Encounter for screening for diabetes mellitus; Z79.899 Other long term (current) drug therapy
CPT/HCPCS: 36415; 80061; 81001; 83036; 84439; 84443

== ENCOUNTER 2023-05-08 12:34 | Outpatient (CLI) | payer MEDICARE, SELFPAY | END 2023-05-08 12:35 | disposition home or self-care (01) | LOC: ANHAUDIO 12:48 | PROVIDERS: PCP Internal Medicine; Visit Provider Internal Medicine | DX: H90.3 Sensorineural hearing loss, bilateral (principal) | CPT/HCPCS: 92557; 92567 ==

== ENCOUNTER 2023-07-17 12:28 | Outpatient (CLI) | payer MEDICARE, SELFPAY ==
[2023-07-17 13:32] LABS: Anion Gap 6 mmol/L (4-12); Blood Urea Nitrogen 14 mg/dL (7-17); Calcium 8.8 mg/dL (8.4-10.2); Carbon Dioxide 28 mmol/L (22-30); Chloride 104 mmol/L (98-107); Estimated Glomerular Filt Rate > 60; Glucose 80 mg/dL (65-110); Potassium 4.1 mmol/L (3.4-5.0); Sodium 138 mmol/L (137-145)
== END 2023-07-17 12:29 | disposition home or self-care (01) ==
PROVIDERS: PCP Internal Medicine; Visit Provider Internal Medicine Cardiovascular Disease
DX: R06.02 Shortness of breath (principal); I42.8 Other cardiomyopathies
CPT/HCPCS: 36415; 36591; 80048

== ENCOUNTER 2023-08-27 11:34 | Outpatient (CLI) | payer MEDICARE, SELFPAY ==
[2023-08-27 12:31] LABS: Cholesterol 116 mg/dL (0-200); HDL Direct 44 mg/dL; Triglycerides 162 mg/dL (<150)
[2023-08-27 12:44] LABS: LDL Cholesterol Direct 56 mg/dL
[2023-08-27 13:03] LABS: Thyroid Stimulating Hormone 0.172 uIU/mL (0.465-4.680)
[2023-08-27 13:23] LABS: Free T4 Free Thyroxine 1.81 ng/mL (0.78-2.19)
[2023-08-27 13:39] LABS: Folic Acid > 20.0 ng/mL (2.76->20)
== END 2023-08-27 11:35 | disposition home or self-care (01) ==
PROVIDERS: PCP Internal Medicine; Visit Provider Internal Medicine
DX: E03.9 Hypothyroidism, unspecified (principal); R94.6 Abnormal results of thyroid function studies; E53.8 Deficiency of other specified B group vitamins; E78.2 Mixed hyperlipidemia
CPT/HCPCS: 36415; 36591; 80061; 82607; 82746; 84439; 84443

== ENCOUNTER 2024-07-03 17:26 | Emergency (ER) | payer MEDICARE, SELFPAY ==
--- NOTE | ~2024-07-03 | XR_ITS ---
HISTORY: fall COMPARISON: None TECHNIQUE: 3 views of the left shoulder were performed FINDINGS: No acute fracture. The glenohumeral and acromioclavicular joint space is maintained The visualized portion of the adjacent left lung is clear. The humeral head is well seated within the glenoid fossa. IMPRESSION: No acute fracture or anterior dislocation. Reviewed, dictated and finalized at location A.
--- NOTE | ~2024-07-03 | XR_ITS ---
HISTORY: fall COMPARISON: None TECHNIQUE: 2 views of the left wrist were performed. FINDINGS: No acute fracture is identified. The carpal arcs are intact. Mild radiocarpal joint space narrowing with sclerosis of the distal radius is present. Significant degenerative disease within the first carpometacarpal joint space. The remaining visualized joint spaces are otherwise preserved. Bone mineralization is age-appropriate. No significant soft tissue swelling is noted. No radiopaque foreign body is identified. IMPRESSION: Degenerative disease, without acute fracture. Reviewed, dictated and finalized at location A.
--- NOTE | ~2024-07-03 | XR_ITS ---
HISTORY: fall COMPARISON: None TECHNIQUE: 3 views of the left knee were performed FINDINGS: No acute or subacute fracture. A left total knee prosthetic is present. No periprosthetic fracture is appreciated IMPRESSION: As above. Reviewed, dictated and finalized at location A. IMPRESSION: As above.
--- NOTE | ~2024-07-03 | XR_ITS ---
HISTORY: fall COMPARISON: None TECHNIQUE: Frontal view of the pelvis was performed FINDINGS: Diffuse bony demineralization is noted. Significant degenerative disease within the visualized portion of the lumbar spine. Superior lateral joint space narrowing and sclerosis is identified within the bilateral femoral aceta bular joint spaces. No acute fracture or dislocation is appreciated. Enteric staple line within the pelvis. IMPRESSION: Degenerative disease, without acute fracture or dislocation, as detailed above. Reviewed, dictated and finalized at location A.
--- NOTE | ~2024-07-03 | XR_ITS ---
HISTORY: fall COMPARISON: None TECHNIQUE: 3 views of the left ribs were performed along with a PA of the chest FINDINGS: No acute displaced fracture is appreciated. Bone mineralization is age-appropriate. Right internal jugular central venous port catheter identified with its tip projecting over the cavoa trial junction. The remainder of the cardiomediastinal silhouette is otherwise unremarkable. The lungs are clear. IMPRESSION: No acute displaced left-sided rib fracture, as detailed above. The lungs are clear. Reviewed, dictated and finalized at location A.
--- NOTE | ~2024-07-03 | XR_ITS ---
HISTORY: fall COMPARISON: None TECHNIQUE: 2 views of the left elbow were performed FINDINGS: No acute fracture is identified. No elevation of the anterior or posterior fat pads are identified to suggest a supracondylar fracture . Overlying soft tissues are unremarkable. Bone mineralization is age-appropriate. IMPRESSION: No acute fracture Reviewed, dictated and finalized at location A. IMPRESSION: No acute fracture
--- NOTE | ~2024-07-03 | CT_ITS ---
History: Ground-level fall PROCEDURE: CT head without contrast. COMPARISON: None TECHNIQUE: Axial imaging of the head performed from the skull base to the vertex without IV contrast. Sagittal a nd coronal reformations obtained. DLP: 605 mGy-cm FINDINGS: The ventricles are enlarged. The dilatation of the ventricles is proportional to the degree of sulcal prominence, not uncommon in the senescent brain. Decreased attenuation is identified within the periventricular white matter, likely secondary to micr ovascular ischemic disease, in a patient of this age. There is no mass, mass effect or midline shift. There is no abnormal extra-axial fluid collection or intracranial hemorrhage. Visualized paranasal sinuses are clear. The mastoid air cells are well aerated. No acute displaced fractures within the overlying cranium. Impression: No acute intracranial hemorrhage or suspicious mass effect. Reviewed, dictated and finalized at location A. Impression: No acute intracranial hemorrhage or suspicious mass effect.
--- NOTE | ~2024-07-03 | CT_ITS ---
History: Ground-level fall PROCEDURE: CT cervical spine without intravenous contrast. COMPARISON: None. Reference is made to a plain film evaluation of the cervical spine dated 12/15/2020 TECHNIQUE: Multiple contiguous axial images of the cervical spine were performed without the administration of i ntravenous contrast. DLP: 146 mGy-cm FINDINGS: Significant degenerative disease is identified within the cervical spine with osteophyte formation, a nkylosis at the level of C3-C7 and severe facet arthropathy. Approximately 3 mm of anterolisthesis of C7 on T1 is identified. No acute fractures are present. The bilateral lung apices are unremarkable. No soft tissue abnormality is present. The airway is patent. Impression: Severe degenerative disease, without acute fracture. Reviewed, dictated and finalized at location A. Impression: Severe degenerative disease, without acute fracture.
--- OUTSIDE RECORDS SUMMARY | 2024-07-03 17:28 | XMS_ITS | Clinical Summary ---
Author Organization [facility] Address Formerly [facility], [facility] [place] [address] Care Team Providers Care Portable Machine Sander Name Role Phone Low Alvarez MD Primary Care Provider [phone] Allergies Active Allergy Reactions Criticality Noted Date Comments Azithromycin Hives 11/30/2020 Baclofen Hives 11/30/2020 Cefepime Hives 11/30/2020 Ciprofloxacin Hives 11/30/2020 Coconut (Cocos Nucifera) Hives 11/30/2020 Morphine Itching 11/30/2020 Penicillins Hives 11/30/2020 Propoxyphene Hives 11/30/2020 Tape Rash Low 11/30/2020 Medications fluticasone propionate 50 MCG/ACT nasal spray 1 spray by Each Nostril route 2 (two) times daily. shake liquid 11/09/2020 Active gabapentin 300 MG capsule Take 300 mg by mouth 4 (four) times a day. 07/27/2020 Active pantoprazole EC 40 MG tablet Take 40 mg by mouth every morning. 10/12/2020 Active nortriptyline 10 MG capsule Take 10 mg by mouth nightly. 11/09/2020 Active exemestane 25 MG tablet Take 25 mg by mouth daily. 11/10/2020 Active bempedoic Acid (NEXLETOL) 180 MG Tab Take 1 tablet by mouth. Active DULoxetine 60 MG capsule Take 60 mg by mouth daily. 09/06/2020 Active hydrOXYzine 25 MG tablet Take 25 mg by mouth every 4 (four) hours as needed for Itching. 10/12/2020 Active montelukast 10 MG tablet Take 10 mg by mouth daily. 11/09/2020 Active Social History Tobacco Use Types Packs/Day Years Used Date Smoking Tobacco: Never Smokeless Tobacco: Never Alcohol Use Standard Drinks/Week Comments Never 0 (1 standard drink = 0.6 oz pur e alcohol) Comments No Sex and Gender Information Value Date Recorded Sex Assigned at Not on file Legal Sex Female 10:48 AM CDT Gender Identity Not on file Sexual Orientation Not on file Last Filed Vital Signs Vital Sign Reading Time Taken Comments Blood Pressure 148/76 11/30/2020 5:41 PM CDT Pulse 79 11/30/2020 5:41 PM CDT Temperature 36.6 C (97.9 F) 11/30/2020 9:58 AM CDT Respiratory Rate 20 11/30/2020 5:41 PM CDT Oxygen Saturation 99% 11/30/2020 5:41 PM CDT Inhaled Oxygen Concentration - - Weight 56.7 kg (125 lb) 11/30/2020 9:58 AM CDT Height 152.4 cm (5') 11/30/2020 9:58 AM CDT Body Mass Index 24.41 11/30/2020 9:58 AM CDT Plan of Treatment Health Maintenance Due Date Last Done Comments DTaP, Tdap and Td Vaccines ( 1 - Tdap) 1960 Zoster Vaccines (1 of 2) 08/28/1991 Annual Medicare Wellness Visit 2006 Dexa Scan (General) 2006 RSV Immunization or 60+ Years (1 - 1-dose 75+ series) 2016 Pneumococcal Vaccine: 50+ Years (2 of 2 - PPSV23) 01/24/2019 01/24/2018, 02/26/2015 COVID-19 Vaccine ( - 2023-2 5 season) 2023 Meningococcal B Vaccine Aged Out No l onger eligible based on patient's age to complete this topic Meningococcal Vaccine Aged Out No nasir arturo eligible based on patient's age to complete this topic RSV Immunizations Under 20 Months Aged Out No longer eligible b ased on patient's age to complete this topic Insurance MEDICARE [facility] Care Teams Portable Machine Sander Relationship Specialty Start Date End Date Low Alvarez MD [address] [place] [address] PCP - General INTERNAL MEDICINE 11/06/19
--- OUTSIDE RECORDS SUMMARY | 2024-07-03 17:28 | XMS_ITS | Encounter Summary ---
Author Organization [facility] Healthcare Address [address] [place] [address] Care Team Providers Care Lease Out Worker Name Role Phone Low Alvarez MD Primary Care Provider [phone] Trae Thompson MD Unavailable Onofre James MD PhD Unavailable [phone] Low Alvarez MD Primary Care Provider [phone] Brown Handley MD Unavailable Juan Diego Etienne MD Unavailable [phone] Encounter Details Date Type Department Care Team (Late st Contact Info) Description 09/10/[address] [facility] ([facility] Formerly [facility] [place], [place] [id number] Aileen Johnston MD [facility]ly [facility] [address]6B[address]A [place] [address] Social History Tobacco Use Types Packs/Day Years Used Date Smoking Tobacco: Never Comments No Sex and Gender Information Value Date Recorded Sex Assigned at Not on file Legal Sex Female 10:03 AM WOMEN'S SOCCER COACH Gender Identity Female 11/27/2023 9:47 AM CDT Sexual Orientation Not on file documented as of this encounter Plan of Treatment Not on file documented as of this encounter Visit Diagnoses Not on filedocumented in this encounter Additional Health Concerns Infection Onset Date Last Indicated Resolved Time COVID: Suspected 04/10/2022 04/10/2022 04/10/2022 11:18 PM WOMEN'S SOCCER COACH COVID: Suspected 05/28/2022 05/28/2022 05/28/2022 8:39 AM CDT COVID: Suspected 12/16/2022 12/16/2022 12/16/2022 6:32 PM CDT COVID: Suspected 01/03/2023 01/03/2023 01/03/2023 3:18 PM WOMEN'S SOCCER COACH COVID19 01/03/2023 01/03/2023 01/13/2023 3:05 AM WOMEN'S SOCCER COACH COVID: Recovered Comment:01/14/2023 IP Review: MD team believes patient has not cleared original infection. Fabby Rodrigues RN Added based on recent COVID infection. 01/13/2023 01/13/2023 01/14/2023 9:[address] COVID: Suspected 01/13/2023 01/14/2023 01/14/2023 3:12 AM WOMEN'S SOCCER COACH COVID19 01/14/2023 01/14/2023 01/29/2023 3:06 AM WOMEN'S SOCCER COACH COVID: Recovered Comment:Added based on recent COVID infection. 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 02/26/2023 08/25/2023 3:05 AM CDT COVID: Suspected 07/25/2023 07/25/2023 07/25/2023 6:35 PM CDT COVID: Suspected 06/13/2024 06/13/2024 06/13/2024 9:45 PM CDT Rhino/Enterovirus 06/13/2024 06/13/2024 06/20/2024 3:06 AM CDT documented as of this encounter Care Teams Lease Out Worker Relationship Specialty Start Date End Date Low Alvarez MD [address] [facility] [address] [place] [address] PCP - General Internal Medicine 08/30/17 10/21/19 Low Alvarez MD [address] [place] [address] PCP - General Internal Medicine 10/22/19 Trae Thompson MD [address] [place] [address] Surgeon Colon and Rectal Surgery 06/25/19 Onofre James MD PhD [address] [place] [address] Consulting Physician Gastroenterology 06/25/19 Brown Handley MD [address] [place] [address] Journeyman Operator Assistant Gastroenterology 12/10/19 Juan Diego Etienne MD [address] [place] [address] Referring Physician Cardiology 01/04/22 documented as of this encounter
--- OUTSIDE RECORDS SUMMARY | 2024-07-03 17:28 | XMS_ITS | Encounter Summary ---
Author Organization [facility] Healthcare Address [address] [place] [address] Care Team Providers Care Bailiff Name Role Phone Trae Thompson MD Unavailable [phone] Onofre James MD PhD Unavailable [phone] Low Alvarez MD Primary Care Provider [phone] Brown Handley MD Unavailable Juan Diego Etienne MD Unavailable [phone] Encounter Details Date Type Department Care Team (Late st Contact Info) Description 10/29/2019 Telephone [facility] [address] [place] [address] Hanna Alves, RT Social History Tobacco Use Types Packs/Day Years Used Date Smoking Tobacco: Never Smokeless Tobacco: Never Alcohol Use Standard Drinks/Week Comments Yes 0 (1 standard drink = 0.6 oz pur e alcohol) occ glass of wine AUDIT-C Answer Date Recorded Q1: How often do you have a drink containing alc ohol? Never 09/29/2019 Average Number of Drinks Not on file 020 Frequency of Binge Drinking Not on file 04/2019 Comments No Sex and Gender Information Value Date Recorded Sex Assigned at Not on file Legal Sex Female 10:03 AM SUMMER LAW CLERK Gender Identity Female 11/27/2023 9:47 AM CDT Sexual Orientation Not on file documented as of this encounter Plan of Treatment Not on file documented as of this encounter Visit Diagnoses Not on filedocumented in this encounter Additional Health Concerns Infection Onset Date Last Indicated Resolved Time COVID: Suspected 04/10/2022 04/10/2022 04/10/2022 11:18 PM SUMMER LAW CLERK COVID: Suspected 05/28/2022 05/28/2022 05/28/2022 8:39 AM CDT COVID: Suspected 12/16/2022 12/16/2022 12/16/2022 6:32 PM CDT COVID: Suspected 01/03/2023 01/03/2023 01/03/2023 3:18 PM SUMMER LAW CLERK COVID19 01/03/2023 01/03/2023 01/13/2023 3:05 AM SUMMER LAW CLERK COVID: Recovered Comment:01/14/2023 IP Review: MD team believes patient has not cleared original infection. Fabby Rodrigues RN Added based on recent COVID infection. 01/13/2023 01/13/2023 01/14/2023 9:[address] COVID: Suspected 01/13/2023 01/14/2023 01/14/2023 3:12 AM SUMMER LAW CLERK COVID19 01/14/2023 01/14/2023 01/29/2023 3:06 AM SUMMER LAW CLERK COVID: Recovered Comment:Added based on recent COVID infection. 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 02/26/2023 08/25/2023 3:05 AM CDT COVID: Suspected 07/25/2023 07/25/2023 07/25/2023 6:35 PM CDT COVID: Suspected 06/13/2024 06/13/2024 06/13/2024 9:45 PM CDT Rhino/Enterovirus 06/13/2024 06/13/2024 06/20/2024 3:06 AM CDT documented as of this encounter Care Teams Bailiff Relationship Specialty Start Date End Date Low Alvarez MD [address] [place] [address] PCP - General Internal Medicine 10/22/19 Trae Thompson MD Surgeon Colon and Rectal Surgery 06/25/19 Onofre James MD PhD Consulting Physician Gastroenterology 06/25/19 Brown Handley MD [address] [place] [address] Apprentice Lineman Third Step Gastroenterology 12/10/19 Juan Diego Etienne MD [address] [place] [address] Referring Physician Cardiology 01/04/22 documented as of this encounter
--- OUTSIDE RECORDS SUMMARY | 2024-07-03 17:28 | XMS_ITS ---
Author Organization [facility] Address [address] [place] [id number] Care Team Providers Care Enologist Name Role Phone Low Alvarez Unavailable Unavailable LYNN LUIS Unavailable [phone] REASON FOR VISIT *General care Encounters Encounter Location Date Provider Diagnosis [facility] [address] [id number] 10/18/2023 LYNN LUIS Plan Of Treatment No Information Progress Notes * NUBIA MENARDB:1940 (83 yo F)Acc No.[id number]:10/18/2023 Patient: TASNEEM NEWMAN Provider: Jalyn Luis DPM :1940 A ge:83 Y S ex:Female Date:10/18/2023 Address:[address] [place], [place] [id number] Subjective: * Chief Complaints: * 1 . *General care. * Medical History: Objective: * Vitals: Assessment: Plan: * Treatment: * Billing Information: * Visit Code: * Procedure Codes: * Electronic signature of LYNN LUIS DPM on 07/03/2024 at 05:28 PM CDT Sign off status: Pending * Provider: Jalyn Luis DPM Date: 10/18/2023 Generated for Ade royal/Yu/eTransmitting on: 07/03/2024 05:28 PM CDT
--- OUTSIDE RECORDS SUMMARY | 2024-07-03 17:28 | XMS_ITS | Encounter Summary ---
Author Organization [facility] Address [address] [place] [address] Phone Care Team Providers Care Circular Distributor Name Role Phone Trae Thompson MD Unavailable [phone] Onofre James MD PhD Unavailable [phone] Low Alvarez MD Primary Care Provider [phone] Brown Handley MD Unavailable Juan Diego Etienne MD Unavailable [phone] Encounter Details Date Type Department Care Team (Late st Contact Info) Description 05/18/2023 Telephone [facility] Oncology [address] [facility] 7th [place] [address] [place] [address] Quiana Coles Social History Tobacco Use Types Packs/Day Years Used Date Smoking Tobacco: Never Smokeless Tobacco: Never Alcohol Use Standard Drinks/Week Comments Yes 0 (1 standard drink = 0.6 oz pur e alcohol) occ glass of wine [facility] Utilities Answer Date Recorded In the past 12 months has [employer] electric, gas, oil, or water company threatened to shut off services in your home? No 03/02/2023 Social Connection and Isolat ion Panel [NHANES] Answer Date Recorded In a typical week, how many times do you talk on the phone with family, friends, or neighbors? More than three times a week 03/02/2023 How often do you get togethe r with friends or relatives? More than three times a week 03/02/2023 How often do you attend chur ch or alevism services? Never 03/02/2023 Do you belong to any clubs o r organizations such as shinto groups, unions, fraternal or athletic groups, or school groups? No 03/02/2023 How often do you attend meet ings of the clubs or organizations you belong to? Never 03/02/2023 Are you , , di vorced, , never , or living with a partner? 03/02/2023 AUDIT-C Answer Date Recorded Frequency of Alcohol Consumption Not on file 04/11/2023 Q2: How many drinks containi ng alcohol do you have on a typical day when you are drinking? Patient does not drink Frequency of Binge Drinking Not on file 03/29 Overall Financial Resource Strain (CARDIA) Answe r Date Recorded How hard is it for you to pa y for the very basics like food, housing, medical care, and heating? Not hard at all 03/02/2023 PHQ-2 Answer Date Recorded PHQ-2 Total Score 0 03/02/2023 Hunger Vital Sign Answer Date Recorded Within the past 12 months, y ou worried that your food would run out before you got the money to buy more. Never true 03/02/19 24 Within the past 12 months, t he food you bought just didn't last and you didn't have money to get more. Never true 03/02/2023 PRAPARE - Transportation Answer Date Re corded In the past 12 months, has l ack of transportation kept you from medical appointments or from getting medications? No 06/2023 In the past 12 months, has l ack of transportation kept you from meetings, work, or from getting things needed for daily living? No 03/02/2023 Housing Stability Vital Sign Answer Sreekanth e Recorded In the last 12 months, was t here a time when you were not able to pay the mortgage or rent on time? No 03/02/2023 In the last 12 months, how many places have you lived? 1 03/02/2023 In the last 12 months, was t here a time when you did not have a steady place to sleep or slept in a assisted (including now)? No 03/02/2023 Personal Safety Answer Date Recorded Have you ever been in or are you currently in a harmful physical or emotional relationship or is someone making you feel afraid or unsafe? 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 02/26/2023 08/25/2023 3:05 AM CDT COVID: Suspected 07/25/2023 07/25/2023 07/25/2023 6:35 PM CDT COVID: Suspected 06/13/2024 06/13/2024 06/13/2024 9:45 PM CDT Rhino/Enterovirus 06/13/2024 06/13/2024 06/20/2024 3:06 AM CDT documented as of this encounter Care Teams Circular Distributor Relationship Specialty Start Date End Date Low Alvarez MD [address] [place] [address] PCP - General Internal Medicine 10/22/19 Trae Thompson MD Surgeon Colon and Rectal Surgery 06/25/19 Onofre James MD PhD Consulting Physician Gastroenterology 06/25/19 Brown Handley MD [facility] [address] [place] [address] Checker Cashier Gastroenterology 12/10/19 Juan Diego Etienne MD [address] [place] [address] Referring Physician Cardiology 01/04/22 documented as of this encounter
--- OUTSIDE RECORDS SUMMARY | 2024-07-03 17:28 | XMS_ITS | Patient Health Record ---
Author Organization [facility] Address [address] [place], [place] [id number] Care Team Providers Care Law Researcher Name Role Phone Low Alvarez Unavailable Unavailable LYNN SONI Unavailable [phone] Reason For Referral No Information Social History Tobacco Use: Social History Observation Description Date Details (start date - stop date) Never Smoker NA - NA Tobacco Control (Standard) Question Answer Notes Tobacco use: Nonsmoker Encounters Encounter Location Date Provider Diagnosis [facility] [place] [address] [place], [place] [id number] 08/16/2023 LYNN SONI Fungal infection of nail B35.1 ; Pain in right toe(s) M79.674 ; Pain in left toe(s) M79.675 ; 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, bilateral legs I70.203 and Acquired keratoderma L85.1 Assessments Encounter Date Diagnosis (ICD Code) Assessment Notes Treatment Notes Treatment Clinical Notes Section Notes 08/16/2023 Pain in right toe(s) (ICD-10 - M79.674) 08/16/2023 Fungal infection of nail (ICD-10 - B35.1) Nails 1-5 Bilateral were debrided extensively with nail nippers and emery board, reducing length and girth to pink healthy tissue with any subungual debris and necrotic tissue removed 08/16/2023 Pain in left toe(s) (ICD-10 - M79.675) 08/16/2023 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, 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) 08/16/2023 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) Plan Of Treatment No Information Insurance Providers Payer Name Payer Address Payer Phone Subscriber Number Group Number Insured Name Patient Relationship to Insured Coverage Start Date Coverage End Date Medicare Part B [place] [address] [place] [phone] [id number] ZAIDARabia TASNEEM Self - patient is the insured [facility] ([facility]) ATTN CLAIMS [address] [place] [address] [id number] ZAIDATASNEEM Cam[place] Self - patient is the insured Medical (General) History Medical History History ICD Code acid reflux artificial joint Blood transfusion fibromyalgia neuropathy Pneumonia anemia Cancer (type of cancer) Arthritis skin cancer Sleep apnea Heart Disease hypertension
[2024-07-03 17:29] VITALS: BP 116/63; PULSE 77; RESP 16; TEMP 36.6; O2SAT 100
--- OUTSIDE RECORDS SUMMARY | 2024-07-03 17:29 | XMS_ITS | Clinical Summary ---
Author Organization [facility] Address [address] [place] [address] Care Team Providers Care Unclaimed Property Officer Name Role Phone Trae Thompson MD Unavailable Onofre James MD PhD Unavailable Low Alvarez MD Primary Care Provider [phone] Brown Handley MD Unavailable Juan Diego Etienne MD Unavailable [phone] Allergies Active Allergy Reactions Criticality Noted Date Comments Atorvastatin Muscle pain Medium 01/12/2021 Azithromycin Hives Medium 06/30/2013 Baclofen Hives Medium 03/24/2009 Cefepime Other (See comments) Low 10/14/2008 Tolerated Ceftriaxone without issues Ciprofloxacin Hives,Unknown Medium 10/29/2014 Coconut Hives,Itching Medium 10/01/2015 gagging Morphine Itching Low 10/29/2014 From IV drip Penicillins Hives Medium 06/30/2013 Propoxyphene Hcl Hives Medium 06/30/2013 Medications montelukast (SINGULAIR) 10 mg tablet Take 1 tablet (10 mg total) by mouth nightly Active albuterol HFA (PROVENTIL HFA,VENTOLIN HFA,PROAIR HFA) 90 mcg/actuation inhaler Inhale 2 puffs as needed Active multivitamin-mine rals-lutein (Multivitamin 50 Plus) tablet Take 1 tablet by mouth every morning Active simethicone (GAS-X) 180 mg capsule Take 1 capsule (180 mg total) by mouth as needed Active methylcellulose (CITRUCEL ORAL) Take by mouth every morning Active pantoprazole DR (PROTONIX) 40 mg EC tablet Take 1 tablet (40 mg total) by mouth every morning Active coenzyme Q10 100 mg capsule Take by mouth every morning Active lutein-zeaxanthin 25-5 mg capsule Take by mouth every morning EYE vitamin Active traMADoL (ULTRAM) 50 mg tabletIndications :History of incisional hernia repair Take 1 tablet (50 mg total) by mouth every 6 (six) hours as needed for pain 20 tablet 023 Active levothyroxine (SYNTHROID) 50 mcg tablet Take 1 tablet (50 mcg total) by mouth daily Active aspirin 81 mg enteric coated tablet Take 1 tablet (81 mg total) by mouth daily Active bempedoic acid-ezetimibe (Nexlizet) 180-10 mg tablet Take by mouth Active cholecalciferol (VITAMIN D-3) 2000 unit tablet Take by mouth daily Active senna (SENOKOT) 8.6 mg tablet Take 1 tablet by mouth daily as needed for constipation 20 tablet Active naloxone (NARCAN) 4 mg/actuation spray,non-aerosol Administer 1 spray into affected nostril(s) as needed for opioid reversal or respiratory depression Call 911. Administer a single spray in one nostril. Repeat every 3 minutes as needed if no or minimal response. 2 each 1 024 Active meclizine (ANTIVERT) 25 mg tablet Take 1 tablet (25 mg total) by mouth 3 (three) times a day as needed Active calcium carbonate (Tums) 750 mg (300 mg elemental) tablet,chewable once as needed Active cetirizine (ZyrTEC) 10 mg tablet Take 1 tablet (10 mg total) by mouth daily Active prochlorperazine (COMPAZINE) 10 mg tabletIndications :Multiple myeloma not having achieved remission (HCC) Take 1 tablet (10 mg total) by mouth every 6 (six) hours as needed for nausea 30 tablet 3 024 Active meclizine (ANTIVERT) 12.5 mg tablet Take 1 tablet (12.5 mg total) by mouth 2 (two) times a day as needed for dizziness for up to 10 days 20 tablet 024 Active lidocaine-priloca ine (EMLA) cream Apply topically as needed for pain 30 g 1 024 Active sacubitriL-valsar arzate (ENTRESTO) 24-26 mg tabletIndications :chronic heart failure Take 0.5 tablets by mouth 2 (two) times a day 45 tablet [address] (CYMBALTA) 30 mg capsuleIndication s:Multiple myeloma not having achieved remission (HCC) Take 1 capsule (30 mg total) by mouth daily 30 capsule 3 024 Active magnesium citrate 100 mg tablet Take by mouth daily Active carvediloL (COREG) 3.125 mg tablet TAKE 1 TABLET(3.125 MG) BY MOUTH TWICE DAILY WITH MEALS 180 tablet 3 025 Active ALPRAZolam (XANAX) 0.25 mg tablet Take by mouth 3 (three) times a day as needed 025 Active loperamide (IMODIUM) 2 mg capsuleIndication s:Diarrhea, unspecified type TAKE 1 CAPSULE(2 MG) BY MOUTH FOUR TIMES DAILY NEEDED FOR DIARRHEA 30 capsule 1 025 Active ondansetron ODT (ZOFRAN-ODT) 4 mg disintegrating tabletIndications :nausea vomiting Take 1 tablet (4 mg total) by mouth every 8 (eight) hours as needed for nausea or vomiting Dissolve 1 tablet oral every 4 hours as needed for nausea or vomiting. 15 tablet 025 Active benzonatate (TESSALON) 100 mg capsuleIndication s:Cough Take 1 capsule (100 mg total) by mouth 2 (two) times a day as needed for cough 10 capsule 025 Active valACYclovir (VALTREX) 500 mg tabletIndications :Multiple myeloma, remission status unspecified (HCC) TAKE 1 TABLET(500 MG) BY MOUTH DAILY 30 tablet 5 025 Active pregabalin (LYRICA) 25 mg capsuleIndication s:LLQ pain TAKE 1 CAPSULE(25 MG) BY MOUTH DAILY 30 capsule 2 025 Active ondansetron (ZOFRAN) 8 mg tabletIndications :Multiple myeloma not having achieved remission (HCC) Take 1 tablet (8 mg total) by mouth every 8 (eight) hours as needed for nausea 30 tablet 3 024 2024 Discontinued(D uplicate order) valACYclovir (VALTREX) 500 mg tabletIndications :Multiple myeloma, remission status unspecified (HCC) TAKE 1 TABLET(500 MG) BY MOUTH DAILY 30 tablet 5 024 2024 Discontinued pregabalin (LYRICA) 25 mg capsuleIndication s:LLQ pain Take 1 capsule (25 mg total) by mouth daily 30 capsule 3 025 2024 Discontinued Active Problems Patient Care Coordination No te Formatting of this note is d ifferent from the original. BMT Inpatient Care Coordination Overview [place] [address] Treatment Plan Stacie/velcade/dex Reason for Admission 02/26/23 - recurrent LLQ Abd pain, N/V Transplant/IEC Planning BMT/IEC Plan HLA typing/IDMs [] Insurance Approval [] Discharge Planning Anticipated Discharge Date 03/02 Patient Education Completed [x] Issue to be Resolved Before Discharge Discharge Disposition HOME Requests Sent to Case Management, Pharmacy PA Team, or Medical Assistants Post-Discharge Follow-Up Living Situation/Distance from [facility] Caregiver Lab/Transfusion Frequency Labs are stable Venous Access & Care implanted vascular device Local Oncologist Contact Phone: Fax: Post-Discharge Office Visit (H30) [facility] [place] Miscellaneous Notes: Problem Noted Date Diagnosed Date Esophageal thickening 08/01/2023 Abnormal gastrointestinal PET scan 08/01/[address] scan 03/13/2023 History of colon polyps 03/13/2023 Anxiety 03/03/2023 Assessment & Plan (03/03/2023 1:12 PM CLOTH CALENDER): Continue Sertraline 50 mg daily. LLQ abdominal pain 02/27/2023 Assessment & Plan (03/03/2023 1:11 PM CLOTH CALENDER): Presents with 3 days of diarrhea, nausea and abdominal pain. Prior history of diverticulitis requiring bowel resection in the past. Last episode Nov 2022 treated with Levaquin and Flagyl. Presents on 02/26/23 with a few days of nausea, LLQ abdominal pain, 5 to 6 non bloody loose stools daily, decrease oral intake, dizziness, and lightheadedness. CT A/P 02/26/23 without evidence of acute intra abdominal process, similar to 12/16/22. No lactic acidosis. UA bland for UTI. On exam LLQ pain. Started on empiric therapy for acute diverticulitis at the [facility] given prior GI history, prior similar presentation, and immunosuppressed status 2/2 malignancy and chemo. Evaluated by GI who recommended that tough imaging is unremarkable, recommended continued treatment for diverticulitis. Other Possibilities could include IBS type pain flare, GI amyloidosis. DD includes colitis, early diverticulitis, adenitis, less likely ureteric colic(given normal UA) Workup: 02/26 CT AP with contrast Colonic diverticulosis without evidence of diverticulitis. 03/01 CT AP with contrast: Postsurgical changes of sigmoid colonic resection. Unchanged from 12/16/2022 mild fat stranding adjacent to the sigmoid colon and rectum. Colonic diverticulosis without CT evidence of diverticulitis. No lymphadenopathy abdomen pelvis. No intraperitoneal free fluid or free air. Recommended colonoscopy Norovirus, stool culture, C diff, Rotavirus are neagative , VRE positive-likely colonization Urinalysis without blood to indicate ureteric stone, no PV discharge, No CT evidence of PID. CRP is 4.3 which which favors against inflammatory process. Other possibility includes abdominal pain form hypocalcemia (will replete) or referred pain. - Levaquin 500 02/26/23, transitioning to 250 on 02/27/23 base on renal clearance. - Flagyl 500 TID 02/26/23-c. - Zofran PRN. - c/w home PPI. - c/w home tramadol prn Heart failure with reduced ejection fraction 03/2023 Assessment & Plan (05/15/2024 11:45 AM CDT): ICM: HFimpEF. LVEF on ECHO In January 58%. Stable NYHA class I findings. Stable exam in clinic. Continue current regimen. /2 dose 24/26 mg BID entresto and coreg. We made no additional changes today. I asked that she continue to monitor her BP at home with good improvement in her EF will not push to add SGLT2i or MRA at this point. Dr. Zajarias in 6 months. Assessment & Plan (02/27/2023 3:30 PM CLOTH CALENDER): EF35% TTE 05/29/22 No features of active heart failure or volume overload. GMDT: coreg 3.125 mg BID-hold for dehydration and poor oral intake Suspected Pneumonia 01/14/2023 Assessment & Plan (01/14/2023 1:05 AM CLOTH CALENDER): Recent COVID-19 tested positive on 01/03/2023 treated with a 5 day course of Paxlovid Progressive worsening of symptoms with increased cough, chest pain with coughing,throat pain, mild exertional dyspnea, poor appetite No fever or chills.Stable hemodynamics.Not requiring oxygen CBC with normal WBC count, lactate Chest x-ray with mild bibasilar reticulation, no consolidation, pleural effusion or pneumothorax. Not a candidate for dexamethasone or remdesivir Treat empirically for bacterial pneumonia with IV ceftriaxone and doxycycline Send repeat RPP, MRSA PCR, pneumonia PCR, throat culture, urine Legionella antigen Follow blood cultures Mucinex DM b.i.d. for cough, DuoNebs as needed for shortness of breath Asthma with acute exacerbation 01/14/2023 Assessment & Plan (01/14/2023 1:04 AM CLOTH CALENDER): Continue home Breo and Singulair Abnormal urinalysis 01/14/2023 Assessment & Plan (01/14/2023 1:07 AM CLOTH CALENDER): UA was positive for 1+ leukocyte esterase, 11-20 WBCs, 2+ bacteria. Denies any urinary frequency/dysuria/hematuria Status post Macrobid 1 dose in the [facility] Already on IV ceftriaxone for suspected pneumonia Moderate protein-calorie malnutrition 01/14/2023 Hx of multiple myeloma 01/13/2023 Vertigo 12/18/2022 Assessment & Plan (01/14/2023 1:07 AM CLOTH CALENDER): Meclizine p.r.n. Assessment & Plan (12/18/2022 12:23 PM CDT): Symptoms consistent with vertigo. - Discharge home with meclizine QID PRN - Counseled pt on safety and fall prevention - Ambulating well with cane Hypothyroidism, unspecified 12/17/2022 Assessment & Plan (01/14/2023 1:00 AM CLOTH CALENDER): Continue levothyroxine 50 mcg daily Assessment & Plan (12/17/2022 11:47 AM CDT): - c/w home synthroid. Anemia due to chemotherapy 07/11/2022 History of ischemic Cardiomyopathy 07/10/2022 Assessment & Plan (01/14/2023 1:02 AM CLOTH CALENDER): Now with recovered LVEF( previously EF 46% and anterior hypokinesis prior to PCI) Appears euvolemic on exam Hold furosemide and Aldactone pending blood pressure trend Continue Coreg Assessment & Plan (12/17/2022 11:46 AM CDT): Endorsing symptoms of orthostatic hypotension at home, orthostatic VS neg on admission. Suspecting symptoms driven by GI loses and cardiac mediations. - Hold coreg, lasix, aldactone and losartan overnight. - LR 1L overnight over 12 hrs.Will give an additional 500ml bolus given ongoing lightheadedness. - I/O. Assessment & Plan (07/10/2022 2:30 PM CDT): History of ischemic cardiomyopathy (EF 46%) in 11/2020 that improved (EF 64%) following PCI to LAD. Recent hospitalization for CHF with TTE noting EF of 35% with WMA. GDMT optimized (started on jardiance, spironolactone and losartan). Concern for AL Amyloidosis with possible cardiac involvement so cardiac MRI obtained on 06/12/22 with no evidence suggesting amyloidosis and improvement in her LVEF to 49%. She has since been diagnosed with multiple myeloma and plans to start therapy next week. Euvolemic on exam with no signs or symptoms of acute decompensated heart failure. Will continue with GDMT as EF improved with: Carvedilol, Losartan and spironolactone. Patient with significant nausea and concerned the Jardiance is etiology. Will hold and assess symptoms with plan to resume if nausea does not improve while off medication. She is scheduled for labs next week. Continue Lasix for volume management. Discussed using Lasix on as needed basis given improvement in EF. Patient prefers to continue at this time. Multiple myeloma 06/23/2022 Cancer Staging:Clinical stage from 07/11/2022:RISS Stage III(Ewng-5-lyyyevocygrzd (mg/L): 27.7, Albumin (g/dL): 3.6, ISS: Stage III, High-risk cytogenetics: Present, LDH: Normal) - Signed by Tiago Currie MD on 07/11/2022 Assessment & Plan (03/01/2023 5:41 PM CLOTH CALENDER): Diagnosed May 2022. IgA Lambda Multiple Myeloma, with TERRENCE and bone lesions at diagnosis. ISS stage III, R-ISS stage III, R2-ISS stage III (Intermediate-high). - Last cycle started on 02/06/23 (C15, D1) Daratumumab, Bortezomib, and Dexamethasone. Due to start C16 on 02/27/23 which was delayed due to her current hospitalization. - Transfusion per BMT protocol. Blood bank antibody note on 12/18/22. - on ASA 81. - OI: valtrex. - c/w home tramadol prn. Assessment & Plan (01/14/2023 12:59 AM CLOTH CALENDER): s/[id number] of daratumumab/Bortezomib/Dexamethasone on 01/02/23 Transfuse per BMT protocol for cancer related pancytopenia Continue valacyclovir for OI ppx Assessment & Plan (12/18/2022 12:21 PM CDT): Diagnosed May 2022. IgA Lambda Multiple Myeloma, with TERRENCE and bone lesions at diagnosis. ISS stage III, R-ISS stage III, R2-ISS stage III (Intermediate-high). - Last treatment 12/12/22 (C6:D15) Daratumumab, Bortezomib, and Dexamethasone. - Transfusion per BMT protocol. - on ASA 81. - OI: valtrex. - c/w home tramadol prn. - Due for next chemo infusion 12/19 Severe malnutrition 05/29/2022 Orthopnea 05/27/2022 Ventral hernia without obstruction or gangrene 0 03/27/2022 Recurrent ventral incisional hernia 01/09/2022 Overview (01/09/2022): Added automatically from request for surgery [id number] CAD (coronary artery disease) 04/06/2021 Assessment & Plan (01/14/2023 1:02 AM CLOTH CALENDER): s/p PCI-LAD 12/24/2020 Continue aspirin, Coreg Assessment & Plan (07/10/2022 2:22 PM CDT): Denies any chest pain. Does admit to some dyspnea with exertion such as taking the stairs. Unclear etiology as it could be multi-factorial secondary to deconditioning, multiple myeloma and anemia (most recent hemoglobin 8.7). Continue aspirin, carvedilol and losartan. Essential hypertension 08/02/2020 Assessment & Plan (01/14/2023 1:00 AM CLOTH CALENDER): Blood pressure stable Continue Coreg Assessment & Plan (12/18/2022 12:20 PM CDT): - Hold coreg, lasix, aldactone and losartan overnight. Can resume at discharge. Assessment & Plan (07/10/2022 2:19 PM CDT): Well controlled. Continue Carvedilol, losartan and spironolactone. Dyslipidemia 04/26/2020 Assessment & Plan (02/27/2023 3:33 PM CLOTH CALENDER): Continue ezetimibe Assessment & Plan (07/10/2022 2:18 PM CDT): Last LDL at goal of < 70. Continue Zetia and Otis 3. Of note, intolerant to statins in th past. Left bundle branch block 04/26/2020 Dyspnea 04/26/2020 History of partial colectomy 12/10/2019 Abdominal pain 10/02/2019 Assessment & Plan (12/18/2022 12:20 PM CDT): Resolved. Prior history of diverticulitis requiring bowel resection in the past. Report last episode probably around 2019. She report taking levaquin previously without problems. Presents on 12/16/22 with 1 week nausea, LLQ abdominal pain, 5 to 6 non bloody loose stools daily, dizziness, headaches, and lightheadedness. LLQ abdominal pain present on admission and pt started on treatment for acute diverticulitis given prior GI history and immunosuppressed 2/2 malignancy and chemo. - CT A/P without evidence of acute intra abdominal process. No lactic acidosis. UA bland. RSV panel neg, CXR without acute pulmonary process. Admission labs showing mild leukopenia. - Levaquin + flagyl 12/16-12/18. Will d/c at discharge given no evidence of diverticulitis and resolution of pain. - BCx 12/16 NGTD. - Compazine 1st line prn, zofran 2nd line prn. - c/w home PPI. Screening for malignant neoplasm of colon 2019 Overview (09/30/2019): Added automatically from request for surgery [id number] Adenomatous polyp of colon 06/25/2019 Gastroesophageal reflux disease 11/03/2014 Assessment & Plan (01/14/2023 1:00 AM CLOTH CALENDER): Continue PPI Assessment & Plan (12/17/2022 11:45 AM CDT): - Continue PPI Irritable bowel syndrome 07/15/2013 Bilateral malignant neoplasm involving both nipple and areola in female 10/15/2008 08/08/2022 Overview (08/08/2022): Images from the original note were not included. 2000,R breast,T1BN0([facility] involved 2/3), ER+,CO+,Her2 neg AC x 3, Thiotepa/Novantrone x 1 RT,Tamoxifen tried, couldn't tolerate STAGE: TIB Nmi1,stage *IB New primary right breast: PATHOLOGY: 10/11/15 11/09/15 right TM/SLN; left TM Breast, right, lumpectomy: -Invasive lobular carcinoma 5.5 cm + 5 cm, ER(+) CO(+) Her 2 (-) Ki-67 37% // LN IHC(+) Left 3 mm ILC BREAST CANCER TREATMENT SUMMARY AND SURVIVORSHIP PLAN Patient name: Di Woods Patient Patient : 1940 CARE TEAM Medical oncologist: Dr. Segundo Surgeon: Dr. Cotton Primary care physician: Dr. Alvarez Advanced Practice Nurse: POLI Mariano TREATMENT SUMMARY Diagnosis date: On 09/15/2015 a bilateral diagnostic mammogram as well as a right breast ultrasound were performed to evaluate a new palpable lump on self exam. There was no definite mass appreciated on either mammogram or targeted ultrasound. Surgical consultation was recommended for further management. A right excisional biopsy was performed on 10/11/2015 for tissue sampling. The pathology report showed an invasive lobular carcinoma with the following features: Estrogen receptor positive, progesterone receptor positive, and HER-2/brian negative and intermediate grade with a Charlene score 5 out of 9. Imaging performed with CT scan of chest, abdomen, and pelvis as well as a bone scan which ruled out metastatic disease. Recall that in 2000 diagnosed with a stage I invasive ductal carcinoma involving the right breast, estrogen receptor positive. Underwent breast conservation therapy- lumpectomy + radiation, followed by chemotherapy with 3 cycles of Adriamycin plus Cytoxan followed by one cycle of by Thiotepa and Novantrone. Was placed on tamoxifen however couldn't tolerate. Cancer type/location/histology subtype: Synchronous bilateral invasive lobular carcinoma TNM: T3 N0i+ M0 Stage: [] I [x] IIB [] III [] IV ER: Positive CO: Positive Hwx1Dlo: Negative Surgery: [x] Yes [] No Surgery date: 11/09/2015 Surgical procedures/location/findings: Bilateral mastectomies with sentinel lymph node biopsy on the right. Final pathology on the right breast demonstrated invasive lobular carcinoma measuring greater than 5 cm, intermediate grade with a Charlene score of 6 out of 9, margins were negative. One sentinel lymph node was removed and tested positive for small amount of isolated malignant cells. Final pathology on the left breast showed that there were 2 foci of invasive lobular carcinoma measuring up to 3.5mm which were intermediate grade with a Houston score of 6 out of 9, margins negative. Lymph nodes removed: [x] Yes [] No Oncotype results if performed: Oncotype score of 17, low risk category. Score of 17 correlates with a 11% risk of recurrence in the next 10 years with endocrine therapy alone. Systemic therapy (chemotherapy/hormonal therapy/targeted therapy): [] Yes [x] No Need for ongoing (adjuvant) treatment for cancer: Yes [x] No[] Additional treatment name: Arimidex Plan duration: 5 years Possible side effects: Arthralgias [x] Hot flashes/night sweats [x] Increased bone loss [x] vaginal dryness [x] slight increased risk of DVT/Blood clot [] Slight increased risk of uterine cancer [] FAMILIAL CANCER RISK ASSESSMENT Genetic/hereditary risk factors or predisposing conditions: No family history of breast cancer. Personal history of bilateral breast cancers. Genetic counseling: [x] Yes [] No Genetic testing results: No mutation found on BRCA 1 or 2. No other deleterious mutations found on comprehensive testing. There was a variant of uncertain significance found on the CDH1 gene (High risk gene associated with gastric, colon and female breast cancer) Most variants do not increase an individual's risk of cancer or other diseases and does not alter medical intervention. [facility] has a variant classification program which performs ongoing evaluation of variant classifications. Patient's and health care providers will be contacted for more clinical information is new evidence about a variant is identified. SCHEDULE OF CLINIC VISITS,CANCER SURVEILLANCE, AND OTHER RECOMMENDED RELATED TESTS (Coordinating Provider,who,what, when, and how often) Coordinating provider MEDICAL ONCOLOGIST Every 3-4 mos for the first 3 years Every 6-12 mos years 4 and 5 Then yearly. *Physical exam/lab work every 3-6 months the first 3 years and then every 6 months year 4/5 and then yearly. A baseline bone density study should be performed on all postmenopausal women prior to starting Arimidex/Femara/or Aromasin. It should be repeated every 1-to 2 years as directed by your physician. Other testing as indicated. SURGEON Every 6 mos for the first year and then yearly. *Physical exam and other tests as indicated on each visit PRIMARY CARE PHYSICIAN Continue your yearly visit *Physical exam and other tests as indicated on each visit FOUR ROLL CALENDER OPERATOR Continue your yearly visit. *Physical exam and other tests (Pap test) as indicated on each visit. Please continue to see your primary care physician/FOUR ROLL CALENDER OPERATOR for all general health care recommended for a female your age. Possible late and/or termite helper effects that someone with this type of cancer and treatment may experience: [] neuropathy [x] lymphedema [] Fatigue [x] osteoporosis [x] Menopausal symptoms [] lung disease [x] breast pain [x] Sexual dysfunction [] heart disease [] leukemia Cancer survivors may experience issues with the areas listed below. If you have any concerns in these or other areas please speak with your doctors or nurses to find out how you can get help with them. [x] Emotional and mental health [] Physical functioning [] Memory or concentration loss [x] Fatigue [] Insurance issues [] Parenting [] Spiritual issues [] Weight changes [x] School/work [] Fertility [] Stopping smoking [] Financial advice or assistance [] Sexual functioning [] Other A number of lifestyle/behaviors can affect one's ongoing health, including the risk for the cancer coming back or developing another cancer. Discuss these recommendations with your doctor and nurses. [] Tobacco use/cessation [x] Alcohol use [x] Weight management (loss/gain) [x] Diet [x] Calcium and vitamin D [x] Regular daily weight bearing exercise [x] Sunscreen use [x] Vaccines [] Lung cancer screening [x] Routine dental care [x] Breast cancer screening [x] Breast self exam [x] Well woman exam [x] Colonoscopy [x] Monitoring of blood pressure, cholesterol, and blood glucose CALL YOUR DOCTOR RECOMMENDATIONS Call for any breast changes, new lumps or areas of concern, swelling to arm where lymph nodes were removed, new pain that persists despite OTC medications, or any problems with your endocrine therapy. PLAN 1) Follow up with Dr. Segundo scheduled for 02/08/2016 at 11:00 at the [facility] 2) Follow up with Dr. Cotton scheduled for 05/25/2016 at 1:30 pm 3) Bone health- Vitamin D 1000 units a day, calcium rich diet (milk, cheese, yogurt, leafy greens), if lactose intolerant, recommend Calcium 600mg daily, weight bearing exercises such as walking or aerobics encouraged. Bone density exams every two years. 4) Magenesium for hot flashes- 500mg twice a day, reduce caffeine intake, exercise regularly, cotton clothing and bed linens, sleep with fan in room 5) Vaginal dryness- can try over the counter products such as [place] or Replens. Daily application of coconut oil or olive oil. Try and avoid estrogen based vaginal creams such as Estrace. For lack of libido- physical exercise recommended. Can refer to [facility] for counseling and possible acupuncture. 6) Dr. Beatty anti-inflammatory diet, avoid high consumption of soy foods such as tofu, soy milk 7) Lifestyle modifications could have a modest impact on risk reduction as well. Recommend a healthy diet including low fat, high fiber foods, low sodium and low cholesterol foods. Mediterranian diet and anti-inflammatory diet recommended and info provided. 8) Recommend an exercise regimen of approximately 5-6 days a week and maintaining healthy weight. Goal is to achieve 150 minutes of exercise per week. We spent time discussing that those changes could result in weight loss which is preventive and also good for overall health. 9) Depressive symptoms- will speak with Dr. Segundo about anti-depressant therapy or Daryl-E also role of counseling- Bryce Machado 10) Chest wall pain- no dominant masses felt on exam but may need ultrasound, follow up with Dr. Segundo 02/07 11) Colonoscopy up to date 12) Received flu shot 13) [employer] at local [facility] REFERRALS [] Star [] [facility] Therapy [] [facility] Pastoral Services [employer] at the [facility] [] Other (Specify): ADDITIONAL RESOURCES Patients may have many questions and concerns after their cancer treatment ends. A list of local resources as provided below to assist you. [facility] cancer information center: [place] [employer] (ACS): www.acs.org National Cancer [place] (NCI): www.cancer.gov [place] Society of clinical oncology (ASCO): www.cancer.net K[employer]: www.komen.org Livest[employer]: www.LIN [employer]tronInterneer Radiation therapy: www.rtanswers.org Patient signature: Eva/YVES/NAKUL signature: Date delivered on: 02/04/2016 60 minutes of time were spent with the patient and over 50% of time was spent in counseling, discussing her issues, chief complaints, diet, exercise, prevention, supplements, etc. or in the coordination of care. 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 Weekly weights and charting Oral nutrition supplementation TID Nausea & vomiting 12/16/2022 03/04/2023 Assessment & Plan (12/17/2022 11:44 AM CDT): - supportive care with anti-emetics PRN Diverticulitis 09/04/2019 11/01/2019 Overview (09/04/2019): Added automatically from request for surgery [id number] Sigmoid diverticulitis 09/03/201910/31 Encounters Date Type Department Care Team Description 06/24/2024 9:00 AM CDT Infusion [facility] - Infusion [address] [place] [id number] Multiple myeloma, remission status unspecified (HCC) (Primary Dx) 06/24/2024 8:00 AM CDT Office Visit [facility] [address] [place] [phone] Bailee Mares NP Multiple myeloma, remission status unspecified (HCC) (Primary Dx) 06/24/2024 7:00 AM CDT Clinical Support [facility] - Lab Collection [facility] [address] [place] [address] Multiple myeloma, remission status unspecified (HCC) 06/19/[address] [facility] [address] [place] [phone] Bailee Mares NP 06/17/[address] [facility] [address] [facility] Floor [address] [place] [address] Bailee Mares NP 06/14/2024 12:49 AM CDT - 06/14/2024 5:17 AM CDT Emergency [facility] Emergency Department 1 [place] [address] Krista Borden MD Rhinovirus infection (Primary Dx) Discharge Disposition: Discharge to home or self care 05/20/2024 10:00 AM CDT Infusion [facility] - Infusion [address] [facility] Floor [address] [place] [address] Multiple myeloma not having achieved remission (HCC) (Primary Dx); Multiple myeloma, remission status unspecified (HCC) 05/20/2024 9:00 AM CDT Clinical Support [facility] - Lab Collection [address] [facility] [address] [place] [address] Multiple myeloma, remission status unspecified (HCC) 05/15/2024 10:30 AM CDT Office Visit [facility] Cardiology [address] [facility] 8th [place] [address] [place] [address] Aisha Simpson NP Heart failure with reduced ejection fraction (HCC) (Primary Dx) 05/14/[address] [facility] Floor [address] [place] [address] Bailee Mares NP Multiple myeloma, remission status unspecified (HCC) (Primary Dx) 04/22/2024 1:30 PM CLOTH CALENDER Infusion [facility] - Infusion [address] [facility] Floor [address] [place] [address] Multiple myeloma not having achieved remission (HCC) (Primary Dx); Multiple myeloma, remission status unspecified (HCC) 04/22/2024 12:30 PM CLOTH CALENDER Office Visit [facility] Floor [address] [place] [address] Bailee Mares NP Multiple myeloma, remission status unspecified (HCC) (Primary Dx) 04/22/2024 11:30 AM CLOTH CALENDER Clinical Support [facility] - Lab Collection [address] [facility] [address] [place] [address] Multiple myeloma, remission status unspecified (HCC) 04/14/[address] [facility] [address] [facility] [address] [place] [phone] Kaleigh hunt, Suman Wong MD from Last 3 Months Immunizations Immunization Administration Dates Next Due Influenza, Quadrivalent, Viktoria l Culture-based MDCK, Preservative Free, Antibiotic Free, Intramuscular 11/28/2022 Influenza, Quadrivalent, Hig h Dose, Preservative Free, Intrr 11/19/2020 Influenza, Trivalent, Adjuva nted, Intramuscular 01/24/2018 Influenza, Trivalent, High D ose, Split, Preservative Free, Intramuscular 12/16/2018 Influenza, Trivalent, IM (MDV) 7,10/31/2014,11/24/2013,11/27 Influenza, Trivalent, Preser vative Free, Intramuscular 12/07/2015 Influenza, Unspecified 11/26/2020,11/25/2012,03/2011 Pneumococcal Conjugate PCV 13 01/24/2018, 016 Pneumococcal Polysaccharide PPV23 01/23/2012 Surgical History Surgery Date Site/Laterality Comments EPIDURAL INJECTION LUMBOSACRAL 10/02/2014 N/A EPIDURAL INJECTION LUMBOSACRAL 04/23/2014 N/A EPIDURAL INJECTION LUMBOSACRAL 04/30/2014 N/A EPIDURAL INJECTION LUMBOSACRAL 03/13/2014 N/A SECTION CHOLECYSTECTOMY ROTATOR CUFF REPAIR FL UPPER GI AIR CONTRAST W KUB 09/17/2019 Left CERVICAL SPINE SURGERY BREAST LUMPECTOMY 02/27/2000 - 02/25/2001 Right BOWEL RESECTION 02/26/2011 - 02/26/2012 MASTECTOMY 02/26/2015 - 02/26/2016 Bilateral recurrent breast cancer TOTAL KNEE ARTHROPLASTY Bilateral FL FLUORO GUIDED INJECTION HIP LEFT 11/27/2019 Left COLONOSCOPY 10/01/2019 EXPLORATORY LAPAROTOMY 10/02/2019 LEFT COLECTOMY 10/02/2019 Redo left colectomy with mobilization splenic flexure and primary colorectal anastomosis VENTRAL HERNIA REPAIR 10/02/2019 URETERAL STENT PLACEMENT 10/02/2019 Bilateral CATARACT EXTRACTION 02/26/2015 - 02/26/2016 Bilateral INCISIONAL HERNIA REPAIR INCISIONAL HERNIA REPAIR 03/27/2022 Robotic abdominal wall reconstruction with bilateral TAR PORT PLACEMENT CHEST >5 YEARS 08/01/2022 N/A CORONARY ANGIOPLASTY WITH STENT PLACEMENT 02/27/2020 - 02/25/2021 Medical History Medical History Date Comments Asthma Sigmoid diverticulitis 2011, 09/03/2019 JAE on CPAP Hx of adenomatous colonic polyps 06/25/2019 Breast cancer, right (HCC) 2000 s/p c hemoradiation. Recurrent 2016 Hypertension Hyperlipidemia Coronary artery disease Congestive heart failure (CHF) (HCC) Gastroesophageal reflux disease Nausea & vomiting 12/16/2022 Family History Medical History Relation Name Comments Anesthesia problems Daughter PONV, de layed emergence Cancer Father Hypertension Father Lung disease Father Hypertension Mother Colon cancer Neg Hx Esophageal cancer Neg Hx Liver cancer Neg Hx Relation Name Status Comments Daughter Father Mother Social History Tobacco Use Types Packs/Day Years Used Date Smoking Tobacco: Never Smokeless Tobacco: Never Tobacco Cessation:Counseling Given: Not Answered Alcohol Use Standard Drinks/Week Comments Yes 0 (1 standard drink = 0.6 oz pur e alcohol) occ glass of wine [employer] Answer Date Recorded In the past 12 months has [employer], gas, oil, or water [employer] threatened to shut off services in your [...] week 03/02/2023 How often do you attend [facility] or [facility] services? Never 03/02/2023 Do you belong to any clubs o r organizations such as judaism groups, unions, fraternal or athletic groups, or school groups? No 03/02/2023 How often do you attend meet ings of the clubs or organizations you belong to? Never 03/02/2023 Are you , , di vorced, , never , or living with a partner? 03/02/2023 AUDIT-C Answer Date Recorded Q1: How often do you have a drink containing alcohol? Never 08/07/2023 Q2: How many drinks containi ng alcohol do you have on a typical day when you are drinking? Patient does not drink Q3: How often do you have si x or more drinks on one occasion? Never 08/07/2023 Overall Financial Resource Strain (CARDIA) Answe r [...] place to sleep or slept in a fci (including now)? No 03/02/2023 Personal Safety Answer Date Recorded Have you ever been in or are you currently in a harmful physical or emotional relationship or is someone making you feel afraid or unsafe? Denies 06/13/2024 Comments No Sex and Gender Information Value Date Recorded Sex Assigned at Not on file Legal Sex Female 10:03 AM CLOTH CALENDER Gender Identity Female 11/27/2023 9:47 AM CDT Sexual Orientation Not on file Obstetrics History Last Filed Vital Signs Vital Sign Reading Time Taken Comments Blood Pressure 122/79 06/24/2024 8:03 AM CDT Pulse 73 06/24/2024 8:03 AM CDT Temperature 36.3 C (97.3 F) 06/24/2024 7:58 AM CDT Respiratory Rate 18 06/24/2024 7:58 AM CDT Oxygen Saturation 99% 06/24/2024 8:03 AM CDT Inhaled Oxygen Concentration - - Weight 57.2 kg (126 lb) 06/24/2024 7:58 AM CDT Height 148.5 cm (4' 10.47 ) 06/24/2024 7:58 AM C DT Body Mass Index 25.92 06/24/2024 7:58 AM CDT Plan of Treatment Health Maintenance Due Date Last Done Comments DTaP/Tdap/Td Vaccine (1 - Tdap) 1951 Hepatitis B Screening 08/28/1959 Zoster Vaccine (1 of 2) 1960 Well Visit 65+ 2006 Osteoporosis Screening-Bone Density Scan 10/15/2010 10/15/2008 Covid-19 Vaccine (2023-2 5 season) 2023 11/19/2020, 05/11/2020, 04/20/2020 Depression Screening 02/27/2024 02/26/2023, 01/13/2023, 12/16/2022, Additional history exists Fall Risk Assessment 08/06/2024 08/07/2023 Influenza Vaccine (Season Ended) 2024 11/28/2022, 11/26/2020, 11/19/2020, Additional history exists Pneumococcal vaccine 65+ Completed 018, 02/26/2015, 01/23/2012 Medical Devices Implanted Type Area Personnel Counselor Device Identifier Shelf Expiration Date Model / Serial / Lot [employer] Inc/C R Bard [id number] Bard [id number] Monofilament Soft Lightweight Low Profile Square - [id number] Implanted:Qty: 1 on 03/27/2022 by Shiva Galdamez MD at [facility] Mesh N/A: Abdomen [employer]/C R Bard [id number] 07/23/2026 [id number] / / [id number] [employer] Bandar [id number] Synergy Xd Monorail 2.5mm 16mm 144cm Delivery System 1 Access - [id number] - [id number] Implanted:Qty: 1 on 12/24/2020 by Juan Diego Etienne MD at [facility] Stent Left: Coronary [employer]ar 07/12/2022 [id number] / [id number] / [id number] Bilateral Total Knee Arthroplasty Knee [employer] Excela Low Porfile Power Port 8fr 1.6mm 1 Lumen [id number] - [id number] Implanted:Qty: 1 on 08/01/2022 at [facility] [employer] 03/26/2027 [id number] Procedures Procedure Name Priority Date/Time Associated Diagnosis Comments EGFR STAT 06/24/2024 7:30 AM CDT Multiple myeloma, remission status unspecified (HCC) DIFFERENTIAL AUTO Routine 06/24/2024 7:3 0 AM CDT Multiple myeloma, remission status unspecified (HCC) PROTEIN ELECTROPHORESIS, WITH REFLEX, SERUM Routine 06/24/2024 7:30 AM CDT Multiple myeloma, remission status unspecified (HCC) IGG Routine 06/24/2024 7:30 AM CDT Multiple myeloma, remission status unspecified (HCC) IGM Routine 06/24/2024 7:30 AM CDT Multiple myeloma, remission status unspecified (HCC) IGA Routine 06/24/2024 7:30 AM CDT Multiple myeloma, remission status unspecified (HCC) IMMUNOGLOBULIN FREE LIGHT CHAINS Routine 06/24/2024 7:30 AM CDT Multiple myeloma, remission status unspecified (HCC) IMMUNOTYPING Routine 06/24/2024 7:30 AM CDT Multiple myeloma, remission status unspecified (HCC) LACTATE DEHYDROGENASE Routine 06/24/2024 7:30 AM CDT Multiple myeloma, remission status unspecified (HCC) CBC WITH AUTO DIFFERENTIAL Routine 06/24/2024 7:30 AM CDT Multiple myeloma, remission status unspecified (HCC) COMPREHENSIVE METABOLIC PANEL STAT 06/24/2024 7:30 AM CDT Multiple myeloma, remission status unspecified (HCC) LACTATE Routine 06/14/2024 1:20 AM CDT BLOOD GAS, VENOUS Routine 06/14/2024 1:2 0 AM CDT TROPONIN I HIGH-SENSITIVITY 4-HOUR Timed 06/14/2024 1:16 AM CDT XR CHEST PA LATERAL 2 VIEWS ED 06/13/2024 10:03 PM CDT EGFR STAT 06/13/2024 8:47 PM CDT DIFFERENTIAL AUTO STAT 06/13/2024 8:4 7 PM CDT TROPONIN I HIGH-SENSITIVITY SERIES (BASELINE, 2HR, 4HR, 6HR) STAT 06/13/2024 8:47 PM CDT CBC WITH AUTO DIFFERENTIAL STAT 06/13/2024 8:47 PM CDT COMPREHENSIVE METABOLIC PANEL STAT 06/13/2024 8:47 PM CDT ECG 12-LEAD STAT 06/13/2024 8:37 PM CDT RESPIRATORY PATHOGEN PANEL STAT 06/13/2024 8:35 PM CDT EGFR STAT 05/20/2024 9:18 AM CDT Multiple myeloma, remission status unspecified (HCC) DIFFERENTIAL AUTO Routine 05/20/2024 9:1 8 AM CDT Multiple myeloma, remission status unspecified (HCC) IGG Routine 05/20/2024 9:18 AM CDT Multiple myeloma, remission status unspecified (HCC) PROTEIN ELECTROPHORESIS, WITH REFLEX, SERUM Routine 05/20/2024 9:18 AM CDT Multiple myeloma, remission status unspecified (HCC) IGM Routine 05/20/2024 9:18 AM CDT Multiple myeloma, remission status unspecified (HCC) IGA Routine 05/20/2024 9:18 AM CDT Multiple myeloma, remission status unspecified (HCC) IMMUNOGLOBULIN FREE LIGHT CHAINS Routine 05/20/2024 9:18 AM CDT Multiple myeloma, remission status unspecified (HCC) IMMUNOTYPING Routine 05/20/2024 9:18 AM CDT Multiple myeloma, remission status unspecified (HCC) LACTATE DEHYDROGENASE Routine 05/20/2024 9:18 AM CDT Multiple myeloma, remission status unspecified (HCC) CBC WITH AUTO DIFFERENTIAL Routine 05/20/2024 9:18 AM CDT Multiple myeloma, remission status unspecified (HCC) COMPREHENSIVE METABOLIC PANEL STAT 05/20/2024 9:18 AM CDT Multiple myeloma, remission status unspecified (HCC) EGFR STAT 04/22/2024 11:55 AM CLOTH CALENDER Multiple myeloma, remission status unspecified (HCC) DIFFERENTIAL AUTO Routine 04/22/2024 11: 55 AM CLOTH CALENDER Multiple myeloma, remission status unspecified (HCC) PROTEIN ELECTROPHORESIS, WITH REFLEX, SERUM Routine 04/22/2024 11:55 AM CLOTH CALENDER Multiple myeloma, remission status unspecified (HCC) IGG Routine 04/22/2024 11:55 AM CLOTH CALENDER Multiple myeloma, remission status unspecified (HCC) IGM Routine 04/22/2024 11:55 AM CLOTH CALENDER Multiple myeloma, remission status unspecified (HCC) IGA Routine 04/22/2024 11:55 AM CLOTH CALENDER Multiple myeloma, remission status unspecified (HCC) IMMUNOGLOBULIN FREE LIGHT CHAINS Routine 04/22/2024 11:55 AM CLOTH CALENDER Multiple myeloma, remission status unspecified (HCC) IMMUNOTYPING Routine 04/22/2024 11:55 AM CLOTH CALENDER Multiple myeloma, remission status unspecified (HCC) LACTATE DEHYDROGENASE Routine 04/22/2024 11:55 AM CLOTH CALENDER Multiple myeloma, remission status unspecified (HCC) CBC WITH AUTO DIFFERENTIAL Routine 04/22/2024 11:55 AM CLOTH CALENDER Multiple myeloma, remission status unspecified (HCC) COMPREHENSIVE METABOLIC PANEL STAT 04/22/2024 11:55 AM CLOTH CALENDER Multiple myeloma, remission status unspecified (HCC) from Last 3 Months Results * Immunotyping, serum with interpretation (06/24/2024 7:30 AM CDT) Immunosubtraction Please see comment Comment: SMALL IGG KAPPA PARAPROTEIN Reviewed and signed by Brayan Ireland MD 06/25/2024 Blood 06/24/2024 7:30 AM CDT 06/24/2024 8:43 AM CDT Suman Canales MD LAB BLOOD ORDER CRISTEL Final Result [facility] Department [place] [address] * eGFR (06/24/2024 7:30 AM CDT) eGFR 62 >=60 mL/min/1. 73 m2 Comment: Interpretive Data Reference Interval Normal >/= 90 mL/min/1.73m2 Mildly decreased* 60 - 89 mL/min/1.73m2 Mildly to moderately decreased 45 - 59 mL/min/1.73m2 Moderately to severely decreased 30 - 44 mL/min/1.73m2 Severely decreased 15 - 29 mL/min/1.73m2 Kidney Failure < 15 mL/min/1.73m2 *Relative to young adult level Estimated glomerular filtration rate is determined by the 2020 CKD-EPI equation recommended by the National Kidney Foundation (A Unifying Approach to GFR Estimation: Recommendations of the NKF-ASK Task Force on Reassessing the Inclusion of Race in Diagnosing Kidney Disease, JASN 2020). The CKD-EPI equation should not be used for patients with unstable renal function and has not been validated in children and those over 70. Current interpretive data was last reviewed 2020. Blood 06/24/2024 7:30 AM CDT 06/24/2024 7:48 AM CDT us Suman Canales MD LAB BLOOD ORDER CRISTEL Final Result [facility] [place] [address] * Differential, auto (06/24/2024 7:30 AM CDT) Neutrophil abs 2.43 1.50 - 6.50 K/cumm Comment:Testing performed by : [facility], [address] [place], [place] [phone] Lymphocyte abs 0.81 0.80 - 3.30 K/cumm TA KENDRICK Comment:Testing performed by : [facility], [address] [place] [phone] Monocyte abs 0.67 0.20 - 0.80 K/cumm TA KENDRICK Comment:Testing performed by : [facility], [address] [place], [place] [phone] Eosinophil abs 0.15 0.00 - 0.50 K/cumm TA KENDRICK Comment:Testing performed by : [facility], [address] [place], [place] [phone] Basophil abs 0.03 0.00 - 0.10 K/cumm TA BJ Comment:Testing performed by : [facility], [address] [place] [phone] Neutrophil pct 59.4 % TA KENDRICK Comment: Interpretive Data Percent cell count reference ranges are not reported, since discordance with absolute values may lead to misinterpretation of CBC data. Current Interpretive Data was last revised on 2017. Testing performed by: [facility], [address] [place] [phone] Lymphocyte pct 19.9 % [facility] Comment: Interpretive Data Percent cell count reference ranges are not reported, since discordance with absolute values may lead to misinterpretation of CBC data. Current Interpretive Data was last revised on 2017. Testing performed by: [facility], [address] [place] [phone] Monocyte pct 16.5 % [facility] Comment: Interpretive Data Percent cell count reference ranges are not reported, since discordance with absolute values may lead to misinterpretation of CBC data. Current Interpretive Data was last revised on 2017. Testing performed by: [facility], [address] [place], [place] [phone] Eosinophil pct 3.6 % [facility] Comment: Interpretive Data Percent cell count reference ranges are not reported, since discordance with absolute values may lead to misinterpretation of CBC data. Current Interpretive Data was last revised on 2017. Testing performed by: [facility], [address] [place] [phone] Basophil pct 0.7 % [facility] Comment: Interpretive Data Percent cell count reference ranges are not reported, since discordance with absolute values may lead to misinterpretation of CBC data. Current Interpretive Data was last revised on 2017. Testing performed by: [facility], [address] [place] [phone] Blood 06/24/2024 7:30 AM CDT 06/24/2024 7:46 AM CDT Suman Canales MD LAB BLOOD ORDER CRISTEL Final Result [facility] [place] [address] * (ABNORMAL) Immunoglobulin free light chains (06/24/2024 7:30 AM CDT) Pathologist [facility] [place]/Lambda ratio [facility] 0.35 0.26 - 1.65 Comment: Interpretive Data The Binding Site FreeLite assay procedure was used. Results from different manufacturers or methods may not be comparable. Serial testing should be performed using the same methods and instrumentation. Current Interpretive Data was last revised on 2023. [place] free light chain [facility] 0.25(L) 0.33 - 1.94 mg/dL TA [facility] Comment: Interpretive Data The Binding Site FreeLite assay procedure was used. Results from different manufacturers or methods may not be comparable. Serial testing should be performed using the same methods and instrumentation. Current Interpretive Data was last revised on 2023. Lambda free light chain [facility] 0.72 0.57 - 2.63 mg/dL [facility] Comment: Interpretive Data The Binding Site FreeLite assay procedure was used. Results from different manufacturers or methods may not be comparable. Serial testing should be performed using the same methods and instrumentation. Current Interpretive Data was last revised on 2023. Blood 06/24/2024 7:30 AM CDT 06/24/2024 8:43 AM CDT Suman Canales MD LAB BLOOD ORDER CRISTEL Final Result [facility] Department [place] [address] * (ABNORMAL) CBC with auto differential (06/24/2024 7:30 AM CDT) Pathologist [facility] WBC 4.09 3.80 - 9.90 K/cumm Comment:Testing performed by : [facility], [address] [place] [phone] Hgb 11.5(L) 11.9 - 15.5 g/dL TA [facility] Comment:Testing performed by : [facility], [address] [place] [phone] Hct 34.1(L) 35.6 - 45.5 % TA BJ Comment:Testing performed by : [facility], [address] [place], [place] [phone] Plt 226 150 - 400 K/cumm [facility] Comment:Testing performed by : [facility], [address] [place], [place] [phone] MPV 9.0 6.8 - 10.4 fL [facility] Comment:Testing performed by : [facility], [address] [place], [place] [phone] RBC 3.36(L) 3.90 - 5.20 M/cumm [facility] Comment:Testing performed by : [facility], [address] [place], [place] [phone] MCV 101.4(H) 81.3 - 96.4 fL [facility] Comment:Testing performed by : [facility], [address] [place], [place] [phone] MCH 34.3(H) 27.1 - 33.3 pg [facility]ER [facility] Comment:Testing performed by : [facility], [address] [place] [address] MCHC 33.8 32.3 - 35.7 g/dL [facility] Comment:Testing performed by : [facility], [address] [place], [place] [phone] RDW CV 13.7 11.1 - 14.9 % [facility] Comment:Testing performed by : [facility], [address] [place] [address] NRBC abs 0.00 0.00 - 0.01 K/cumm [facility] Comment:Testing performed by : [facility], [address] [place] [address] Blood 06/24/2024 7:30 AM CDT 06/24/2024 7:46 AM CDT us Suman Canales MD LAB BLOOD ORDER CRISTEL Final Result CERENEDINA KENDRICK [facility] [place] [address] * (ABNORMAL) Protein electrophoresis with reflex, serum with interpretation (06/24/2024 7:30 AM CDT) [facility] Protein, sr 5.9(L) 6.2 - 8.2 g/dL Albumin 4.0 3.2 - 5.0 g/dL [facility] Alpha-1 globulin 0.3 0.2 - 0.4 g/dL [facility] Alpha-2 globulin 0.8 0.5 - 1.0 g/dL [facility] Beta-1 globulin 0.4 0.3 - 0.6 g/dL [facility] Beta-2 globulin 0.2 0.2 - 0.6 g/dL [facility] Gamma globulin 0.3(L) 0.5 - 1.7 g/dL [facility] SPEP interp Please see comment [facility] Comment: Abnormal restricted peak in gamma region Quantity of restricted peak too low to quantify accurately Decreased gamma globulins Electrophoretic pattern appears similar to previous sample 05/21/2024 *See immunotyping for further information Reviewed and signed by Brayan Ireland MD 06/26/2024 Blood 06/24/2024 7:30 AM CDT 06/24/2024 8:43 AM CDT Suman Canales MD LAB BLOOD ORDER CRISTEL Final Result TA KENDRICK [facility] [place] [address] * Lactate dehydrogenase (LD) (06/24/2024 7:30 AM CDT) [facility] Lactate dehydrogenase (LDH) 188 100 - 250 Units/L Blood 06/24/2024 7:30 AM CDT 06/24/2024 7:48 AM CDT Suman Canales MD LAB BLOOD ORDER CRISTEL Final Result [facility] [email or web address] [address] * (ABNORMAL) IgA (06/24/2024 7:30 AM CDT) Immunoglobulin A <50(L) 70 - 400 mg/dL Blood 06/24/2024 7:30 AM CDT 06/24/2024 8:05 AM CDT Suman Canales MD LAB BLOOD ORDER CRISTEL Final Result Performing Organization Address [facility] [place] [address] * (ABNORMAL) IgM (06/24/2024 7:30 AM CDT) Immunoglobulin M <25(L) 40 - 230 mg/dL Blood 06/24/2024 7:30 AM CDT 06/24/2024 8:05 AM CDT Suman Canales MD LAB BLOOD ORDER CRISTEL Final Result Performing Organization Address [facility] Co de Phone Number [email or web address] [address] * (ABNORMAL) IgG (06/24/2024 7:30 AM CDT) Pathologist [facility] Immunoglobulin G <300(L) 700 - 1,600 mg/dL Blood 06/24/2024 7:30 AM CDT 06/24/2024 8:05 AM CDT Suman Canales MD LAB BLOOD ORDER CRISTEL Final Result Performing Organization Address City/[facility] Co de Phone Number [facility] [place] [address] * (ABNORMAL) Comprehensive metabolic panel (06/24/2024 7:30 AM CDT) Sodium 141 135 - 145 mmol/L Potassium, pl 4.6 3.3 - 4.9 mmol/L [facility] Chloride 105 97 - 110 mmol/L [facility] CO2 31 22 - 32 mmol/L [facility] Anion gap 5 2 - 15 mmol/L [facility] BUN 13 6 - 25 mg/dL [facility] Creatinine 0.92 0.60 - 1.10 mg/dL [facility] Glucose 100 70 - 199 mg/dL [facility] Comment: Interpretive Data Fasting glucose >/= 126 mg/dl is diagnostic for diabetes. Fasting is defined as no caloric intake for at least 8 hours. Fasting glucose between 100 mg/dl to 125 mg/dl is diagnostic of prediabetes. In a patient with classic symptoms of hyperglycemia or hyperglycemic crisis, a random glucose >/= 200 mg/dl is diagnostic for diabetes. In the absence of unequivocal hyperglycemia, results should be confirmed by repeat testing. The classification and Diagnosis of Diabetes Diabetes Care 2021; 46: S19-S40. Current interpretive data was last revised 2022. Calcium 9.7 8.5 - 10.3 mg/dL [facility] Bilirubin, total 0.4 0.1 - 1.2 mg/dL [facility] Protein, pl 6.2(L) 6.5 - 8.5 g/dL [facility] Albumin 4.2 3.5 - 5.0 g/dL [facility] Alk phos 43 40 - 130 Units/L [facility] ALT 13 7 - 45 Units/L [facility] AST 23 10 - 45 Units/L [facility] Blood 06/24/2024 7:30 AM CDT 06/24/2024 7:48 AM CDT us Suman Canales MD LAB BLOOD ORDER CRISTEL Final Result [facility] [place] [address] * Lactate (06/14/2024 1:20 AM CDT) Pathologist [facility] Lactate 1.1 0.7 - 2.0 mmol/L Blood 06/14/2024 1:20 AM CDT 06/14/2024 1:36 AM CDT José Miguel Hernandez MD LAB BLOOD ORDERABLES Yulia l Result Performing Organization Address [facility] de Phone Number [facility] [place] [address] * (ABNORMAL) Blood gas, venous (06/14/2024 1:20 AM CDT) [facility] pH, Venous 7.48(H) 7.32 - 7.43 PCO2, Venous 31(L) 40 - 50 mmHg [facility] PO2, Venous 30 mmHg [facility] Comment: Interpretive Data No Reference Range Established Current Interpretive Data was last revised on 2017. HCO3 Venous, Calculated 24 20 - 30 mmol/L [facility] BE, venous 0 mmol/L [facility] Comment: Interpretive Data No Reference Range Established Current Interpretive Data was last revised on 2017. Blood 06/14/2024 1:20 AM CDT 06/14/2024 1:28 AM CDT Result [facility] José Miguel Hernandez MD LAB BLOOD ORDERABLES Yulia l Result Performing Organization Address [facility] de Phone Number [facility] [place] [address] * Troponin I high-sensitivity 4-hour (06/14/2024 1:16 AM CDT) [facility] Trop I hs 7 <=17 ng/L Comment: Interpretive Data For further hscTnI resources including the diagnostic algorithm and an aid in interpretation, copy and paste this link: [email or web address].[email or web address]/show/[email or web address] Current Interpretive Data last revised 2019. Trop I hs delta 1 ng/L [facility] Trop I hs interp Insignificant [facility] Blood 06/14/2024 1:16 AM CDT 06/14/2024 1:35 AM CDT Vlad Horton MD LAB BLOOD ORDERABLES F inal Result [facility] [place] [address] * XR Chest PA Lateral 2 Views (06/13/2024 10:03 PM CDT) Anatomical Region Laterality Modality Body, Chest N/A Computed Radiogr aphy 06/13/2024 10:2 0 PM CDT Impressions 06/14/2024 8:24 AM CDT Comparison is made to radiograph dated 07/25/2023. Right internal jugular approach chest port with tip overlying the superior vena cava. Surgical clips overlying the right axilla. Coronary vascular stent. No pulmonary consolidation. No pneumothorax or pleural effusion. Stable cardiac mediastinal silhouette. Dictated by: Anthony Resendiz MD The radiology attending physician has personally reviewed this study, and had reviewed and/or edited this written report and agrees with it. Electronically signed by: Gianfranco Almendarez M.D. Narrative 06/14/2024 8:24 AM CDT EXAMINATION: 2 view chest radiograph Procedure Note Gianfranco Almendarez MD - 06/14/2024 EXAMINATION: 2 view chest radiograph IMPRESSION: Comparison is made to radiograph dated 07/25/2023. Right internal jugular approach chest port with tip overlying the superior vena cava. Surgical clips overlying the right axilla. Coronary vascular stent. No pulmonary consolidation. No pneumothorax or pleural effusion. Stable cardiac mediastinal silhouette. Dictated by: Anthony Resendiz MD The radiology attending physician has personally reviewed this study, and had reviewed and/or edited this written report and agrees with it. Electronically signed by: Gianfranco Almendarez M.D. Krista Borden MD IMG XR PROCEDURES Final Re sult * Troponin I high-sensitivity series (baseline, 2hr, 4hr, 6hr) (06/13/2024 8:47 PM CDT) Trop I hs 6 <=17 ng/L Comment: Interpretive Data For further hscTnI resources including the diagnostic algorithm and an aid in interpretation, copy and paste this link: [email or web address].[email or web address]/show/[email or web address] Current Interpretive Data last revised 2019. Blood 06/13/2024 8:4 7 PM CDT 06/13/2024 9:03 PM CDT us Krista Borden MD LAB BLOOD ORDERABLES Final Result [facility] [place] [address] * eGFR (06/13/2024 8:47 PM CDT) eGFR 63 >=60 mL/min/1. 73 m2 Comment: Interpretive Data Reference Interval Normal >/= 90 mL/min/1.73m2 Mildly decreased* 60 - 89 mL/min/1.73m2 Mildly to moderately decreased 45 - 59 mL/min/1.73m2 Moderately to severely decreased 30 - 44 mL/min/1.73m2 Severely decreased 15 - 29 mL/min/1.73m2 Kidney Failure < 15 mL/min/1.73m2 *Relative to young adult level Estimated glomerular filtration rate is determined by the 2020 CKD-EPI equation recommended by the National Kidney Foundation (A Unifying Approach to GFR Estimation: Recommendations of the NKF-ASK Task Force on Reassessing the Inclusion of Race in Diagnosing Kidney Disease, JASN 2020). The CKD-EPI equation should not be used for patients with unstable renal function and has not been validated in children and those over 70. Current interpretive data was last reviewed 2020. Blood 06/13/2024 8:47 PM CDT 06/13/2024 9:03 PM CDT us Krista Borden MD LAB BLOOD ORDERABLES Final Result [facility] [place] [address] * (ABNORMAL) Differential, auto (06/13/2024 8:47 PM CDT) Neutrophil abs 3.42 1.50 - 6.50 K/cumm Imm gran abs 0.02 0.00 - 0.10 K/cumm [facility] Lymphocyte abs 0.68(L) 0.80 - 3.30 K/cumm [facility] Monocyte abs 0.81(H) 0.20 - 0.80 K/cumm [facility] Eosinophil abs 0.16 0.00 - 0.50 K/cumm [facility] Basophil abs 0.03 0.00 - 0.10 K/cumm [facility] Neutrophil pct 66.8 % [facility] Comment: Interpretive Data Percent cell count reference ranges are not reported, since discordance with absolute values may lead to misinterpretation of CBC data. Current Interpretive Data was last revised on 2017. Imm gran pct 0.4 % [facility] Comment: Interpretive Data Percent cell count reference ranges are not reported, since discordance with absolute values may lead to misinterpretation of CBC data. Current Interpretive Data was last revised on 2017. Lymphocyte pct 13.3 % [facility] Comment: Interpretive Data Percent cell count reference ranges are not reported, since discordance with absolute values may lead to misinterpretation of CBC data. Current Interpretive Data was last revised on 2017. Monocyte pct 15.8 % [facility] Comment: Interpretive Data Percent cell count reference ranges are not reported, since discordance with absolute values may lead to misinterpretation of CBC data. Current Interpretive Data was last revised on 2017. Eosinophil pct 3.1 % [facility] Comment: Interpretive Data Percent cell count reference ranges are not reported, since discordance with absolute values may lead to misinterpretation of CBC data. Current Interpretive Data was last revised on 2017. Basophil pct 0.6 % [facility] Comment: Interpretive Data Percent cell count reference ranges are not reported, since discordance with absolute values may lead to misinterpretation of CBC data. Current Interpretive Data was last revised on 2017. Blood 06/13/2024 8:47 PM CDT 06/13/2024 9:03 PM CDT Krista Borden MD LAB BLOOD ORDERABLES Final Result Performing Organization Address City/[facility]/ZIP Co de Phone Number [facility] [place] [address] * (ABNORMAL) CBC with auto differential (06/13/2024 8:47 PM CDT) WBC 5.12 3.80 - 9.90 K/cumm Hgb 13.0 11.9 - 15.5 g/dL [facility] Hct 37.7 35.6 - 45.5 % [facility] Plt 226 150 - 400 K/cumm [facility] MPV 10.8 9.1 - 12.3 fL [facility] RBC 3.78(L) 3.90 - 5.20 M/cumm [facility] MCV 99.7(H) 81.3 - 96.4 fL [facility] MCH 34.4(H) 27.1 - 33.3 pg [facility] MCHC 34.5 32.3 - 35.7 g/dL [facility] RDW CV 13.1 11.1 - 14.9 % [facility] RDW SD 47.9 35.7 - 48.1 fL [facility] NRBC abs 0.00 0.00 - 0.01 K/cumm [facility] Blood 06/13/2024 8:47 PM CDT 06/13/2024 9:03 PM CDT Krista Borden MD LAB BLOOD ORDERABLES Final Result Performing Organization Address City/[facility]/ZIP Co de Phone Number [facility] Department [place] [address] * Comprehensive metabolic panel (06/13/2024 8:47 PM CDT) Sodium 144 135 - 145 mmol/L Potassium, pl 4.1 3.3 - 4.9 mmol/L [facility] Chloride 107 97 - 110 mmol/L [facility] CO2 26 22 - 32 mmol/L [facility] Anion gap 11 2 - 15 mmol/L [facility] BUN 15 6 - 25 mg/dL [facility] Creatinine 0.91 0.60 - 1.10 mg/dL [facility] Glucose 86 70 - 199 mg/dL [facility] Comment: Interpretive Data Fasting glucose >/= 126 mg/dl is diagnostic for diabetes. Fasting is defined as no caloric intake for at least 8 hours. Fasting glucose between 100 mg/dl to 125 mg/dl is diagnostic of prediabetes. In a patient with classic symptoms of hyperglycemia or hyperglycemic crisis, a random glucose >/= 200 mg/dl is diagnostic for diabetes. In the absence of unequivocal hyperglycemia, results should be confirmed by repeat testing. The classification and Diagnosis of Diabetes Diabetes Care 2021; 46: S19-S40. Current interpretive data was last revised 2022. Calcium 9.6 8.5 - 10.3 mg/dL [facility] Bilirubin, total 0.3 0.1 - 1.2 mg/dL [facility] Protein, pl 6.8 6.5 - 8.5 g/dL [facility] Albumin 4.4 3.5 - 5.0 g/dL [facility] Alk phos 45 40 - 130 Units/L [facility] ALT 20 7 - 45 Units/L [facility] AST 39 10 - 45 Units/L [facility] Blood 06/13/2024 8:47 PM CDT 06/13/2024 9:03 PM CDT us Krista Borden MD LAB BLOOD ORDERABLES Final Result [facility] [place] [address] * ECG 12-LEAD (06/13/2024 8:37 PM CDT) Narrative [facility] - 06/13/2024 8:37 PM CDT Isabella Foley MD 06/13/2024 8:40 PM ECG 12 lead Date/Time: 06/13/2024 8:37 PM Performed by: Isabella Foley MD Authorized by: Tk Orlando MD Rate: ECG rate: 75 ECG rate assessment: normal Rhythm: Rhythm: sinus rhythm Ectopy: Ectopy: none QRS: QRS axis: Normal QRS intervals: Normal Conduction: Conduction: abnormal Abnormal conduction: complete LBBB ST segments: ST segments: Non-specific Elevation: V2, V3 and V4 Depression: AVL and I T waves: T waves: inverted Inverted: AVL Previous ECG: Previous ECG: Compared to current Date of previous EC07/25/2023 Comparison ECG info: New nonspecific MODESTO in V4 without Sgarbossa criteria Interpretation: Interpretation: non-specific Recommended Follow-up: Recommended follow up: further workup in the ED Procedure Note Isabella Foley MD - 06/13/2024 8:37 PM CDT Procedure ECG 12 lead Date/Time: 06/13/2024 8:37 PM Performed by: Isabella Foley MD Authorized by: Tk Orlando MD Rate: ECG rate: 75 ECG rate assessment: normal Rhythm: Rhythm: sinus rhythm Ectopy: Ectopy: none QRS: QRS axis: Normal QRS intervals: Normal Conduction: Conduction: abnormal Abnormal conduction: complete LBBB ST segments: ST segments: Non-specific Elevation: V2, V3 and V4 Depression: AVL and I T waves: T waves: inverted Inverted: AVL Previous ECG: Previous ECG: Compared to current Date of previous EC07/25/2023 Comparison ECG info: New nonspecific MODESTO in V4 without Sgarbossacriteria Interpretation: Interpretation: non-specific Recommended Follow-up: Recommended follow up: further workup in the ED Isabella Foley MD 06/13/242039 us Krista Borden MD ECG ORDERABLES Final Resu lt [facility] * (ABNORMAL) Respiratory pathogen panel Nasopharyngeal (06/13/2024 8:35 PM CDT) Pathologist [facility] Influenza A RNA Not Detected Not Detected Influenza B RNA Not Detected Not Detected [facility] RSV RNA Not Detected Not Detected [facility] COVID-19 RNA Not Detected Not Detected [facility] Coronavirus 229E RNA Not Detected Not Detected [facility] Coronavirus HKU1 RNA Not Detected Not Detected [facility] Coronavirus NL63 RNA Not Detected Not Detected [facility] Coronavirus OC43 RNA Not Detected Not Detected [facility] Adenovirus DNA Not Detected Not Detected [facility] Metapneumovirus RNA Not Detected Not Detected [facility] Rhinovirus/Enterov irus RNA Detected(A) Not Detected [facility] Parainfluenza 1 RNA Not Detected Not Detected [facility] Parainfluenza 2 RNA Not Detected Not Detected [facility] Parainfluenza 3 RNA Not Detected Not Detected [facility] Parainfluenza 4 RNA Not Detected Not Detected [facility] B. pertussis DNA Not Detected Not Detected [facility] B. parapertussis DNA Not Detected Not Detected [facility] C. pneumoniae DNA Not Detected Not Detected [facility] M. pneumoniae DNA Not Detected Not Detected [facility] Nasopharyngeal 06/13/2024 8: 35 PM CDT 06/13/2024 8:43 PM CDT Narrative [facility] - 06/13/2024 9:44 PM CDT Is the Patient experiencing symptoms consistent with COVID?->Yes Surveillance testing for transplant patient?->No Interpretive Data The [employer] FilmArray Respiratory Panel (RP2.1) assay is a multiplexed real-time PCR based nucleic acid test capable of simultaneous qualitative detection and identification of multiple respiratory viral and bacterial nucleic acids, including SARS Coronavirus 2 (the causative agent of COVID-19). The following bacteria, viruses and virus subtypes can be identified using the FilmArray RP2.1 assay: Bordetella pertussis, Bordetella parapertussis, Chlamydia pneumoniae, Mycoplasma pneumoniae, Adenovirus, SARS Coronavirus 2, seasonal coronaviruses (Coronavirus HKU1, Coronavirus NL63, Coronavirus 229E, and Coronavirus OC43), Influenza A, Influenza A subtype H1, Influenza A subtype H3, Influenza A subtype 2009 H1, Influenza B, Metapneumovirus, Parainfluenza 1, Parainfluenza 2, Parainfluenza 3, Parainfluenza 4, RSV, Rhinovirus/Enterovirus. Due to the genetic similarity between human Rhinovirus and Enterovirus, the FilmArray RP2.1 assay cannot reliably differentiate them. Coronavirus OC43 may cross-react with some isolates of Coronavirus HKU1. A dual positive result may be due to cross-reactivity or may indicate a co- infection. The detection and identification of specific viral and bacterial nucleic acids from individuals exhibiting signs and symptoms of a respiratory infection aids in the diagnosis of respiratory infection if used in conjunction with other clinical and epidemiological information. The results of this test should not be used as the sole basis for diagnosis, treatment, or other management decisions. Negative results in the setting of a respiratory illness may be due to infection with pathogens that are not detected by this test. Positive results do not rule out infection/co-infection with other organisms. The agent(s) detected by the FilmArray RP2.1 may not be the definite cause of disease. Additional testing (lab, imaging, etc.) may be necessary when evaluating a patient with possible respiratory tract infection. The FilmArray RP2.1 assay has FDA clearance for testing of MULLING MACHINE OPERATOR swabs. The performance of additional specimen types has been assessed by the performing laboratory. The performance characteristics of this assay have been determined by [facility] Molecular Infectious Disease Laboratory. Current interpretive data was last revised on 21. Krista Borden MD LAB MICROBIOLOGY - GENERAL ORDERABLES Final Result [facility] [place] [address] * Immunotyping, serum with interpretation (05/20/2024 9:18 AM CDT) Immunosubtraction Please see comment Comment: SMALL IGG KAPPA PARAPROTEIN Reviewed and signed by Vipul Stuart MD, PhD 05/21/2024 Blood 05/20/2024 9:18 AM CDT 05/20/2024 10:30 AM CDT Bailee Mares MULLING MACHINE OPERATOR LAB BLOOD ORDERABLES Yulia l [facility] [place] [address] * eGFR (05/20/2024 9:18 AM CDT) eGFR 71 >=60 mL/min/1. 73 m2 Comment: Interpretive Data Reference Interval Normal >/= 90 mL/min/1.73m2 Mildly decreased* 60 - 89 mL/min/1.73m2 Mildly to moderately decreased 45 - 59 mL/min/1.73m2 Moderately to severely decreased 30 - 44 mL/min/1.73m2 Severely decreased 15 - 29 mL/min/1.73m2 Kidney Failure < 15 mL/min/1.73m2 *Relative to young adult level Estimated glomerular filtration rate is determined by the 2020 CKD-EPI equation recommended by the National Kidney Foundation (A Unifying Approach to GFR Estimation: Recommendations of the NKF-ASK Task Force on Reassessing the Inclusion of Race in Diagnosing Kidney Disease, JASN 2020). The CKD-EPI equation should not be used for patients with unstable renal function and has not been validated in children and those over 70. Current interpretive data was last reviewed 2020. Blood 05/20/2024 9:18 AM CDT 05/20/2024 9:28 AM CDT Bailee Mares MULLING MACHINE OPERATOR LAB BLOOD ORDERABLES Yulia l Result TA KENDRICK [facility] [place] [address] * (ABNORMAL) Differential, auto (05/20/2024 9:18 AM CDT) Neutrophil abs 5.1 1.5 - 6.5 K/cumm Comment:Testing performed by : [facility], [address] [place] [phone] Lymphocyte abs 0.4(L) 0.8 - 3.3 K/cumm [facility] Comment:Testing performed by : [facility], [address] [place] [phone] Monocyte abs 0.7 0.2 - 0.8 K/cumm [facility] Comment:Testing performed by : [facility], [address] [place] [phone] Eosinophil abs 0.1 0.0 - 0.5 K/cumm [facility] Comment:Testing performed by : [facility], [address] [place] [phone] Basophil abs 0.1 0.0 - 0.1 K/cumm [facility] Comment:Testing performed by : [facility], [address] [place] [phone] Neutrophil pct 79.1 % [facility] Comment: Interpretive Data Percent cell count reference ranges are not reported, since discordance with absolute values may lead to misinterpretation of CBC data. Current Interpretive Data was last revised on 2017. Testing performed by: [facility], [address] [place] [phone] Lymphocyte pct 5.5 % [facility] Comment: Interpretive Data Percent cell count reference ranges are not reported, since discordance with absolute values may lead to misinterpretation of CBC data. Current Interpretive Data was last revised on 2017. Testing performed by: [facility], [address] [place] [phone] Monocyte pct 11.7 % [facility] Comment: Interpretive Data Percent cell count reference ranges are not reported, since discordance with absolute values may lead to misinterpretation of CBC data. Current Interpretive Data was last revised on 2017. Testing performed by: [facility], [address] [place] [phone] Eosinophil pct 1.5 % [facility] Comment: Interpretive Data Percent cell count reference ranges are not reported, since discordance with absolute values may lead to misinterpretation of CBC data. Current Interpretive Data was last revised on 2017. Testing performed by: [facility], [address] [place] [phone] Basophil pct 2.2 % [facility] Comment: Interpretive Data Percent cell count reference ranges are not reported, since discordance with absolute values may lead to misinterpretation of CBC data. Current Interpretive Data was last revised on 2017. Testing performed by: [facility], [address] [place] [phone] Blood 05/20/2024 9:18 AM CDT 05/20/2024 9:25 AM CDT us Bailee Mares MULLING MACHINE OPERATOR LAB BLOOD ORDERABLES Yulia l Result [facility] Department [place] [address] * (ABNORMAL) Immunoglobulin free light chains (05/20/2024 9:18 AM CDT) [place]/Lambda ratio [facility] 0.85 0.26 - 1.65 Comment: Interpretive Data The Binding Site FreeLite assay procedure was used. Results from different manufacturers or methods may not be comparable. Serial testing should be performed using the same methods and instrumentation. Current Interpretive Data was last revised on 2023. [place] free light chain [facility] 0.33 0.33 - 1.94 mg/dL [facility] Comment: Interpretive Data The Binding Site FreeLite assay procedure was used. Results from different manufacturers or methods may not be comparable. Serial testing should be performed using the same methods and instrumentation. Current Interpretive Data was last revised on 2023. Lambda free light chain BJ 0.39(L) 0.57 - 2.63 mg/dL [facility] Comment: Interpretive Data The Binding Site FreeLite assay procedure was used. Results from different manufacturers or methods may not be comparable. Serial testing should be performed using the same methods and instrumentation. Current Interpretive Data was last revised on 2023. Blood 05/20/2024 9:18 AM CDT 05/20/2024 10:30 AM CDT Bailee Mares MULLING MACHINE OPERATOR LAB BLOOD ORDERABLES Yulia lobo Result [facility] Department [place] [address] * (ABNORMAL) CBC with auto differential (05/20/2024 9:18 AM CDT) WBC 6.4 3.8 - 9.9 K/cumm Comment:Testing performed by : [facility], [address] [place] [address] Hgb 12.1 11.9 - 15.5 g/dL [facility] Comment:Testing performed by : [facility], [address] [place] [address] Hct 35.9 35.6 - 45.5 % [facility] Comment:Testing performed by : [facility], [address] [place] [address] Plt 230 150 - 400 K/cumm [facility] Comment:Testing performed by : [facility], [address] [place] [address] MPV 9.0 6.8 - 10.4 fL [facility] Comment:Testing performed by : [facility], [address] [place] [address] RBC 3.51(L) 3.90 - 5.20 M/cumm [facility] Comment:Testing performed by : [facility], [address] [place] [address] MCV 102.1(H) 81.3 - 96.4 fL [facility] Comment:Testing performed by : [facility], [address] [place] [address] MCH 34.3(H) 27.1 - 33.3 pg [facility] Comment:Testing performed by : [facility], [address] [place] [address] MCHC 33.6 32.3 - 35.7 g/dL [facility] Comment:Testing performed by : [facility], [address] [place] [phone] RDW CV 14.6 11.1 - 14.9 % [facility] Comment:Testing performed by : [facility], [address] [place] [phone] NRBC abs 0.00 0.00 - 0.01 K/cumm TA [facility] Comment:Testing performed by : [facility], [address] [place] [phone] Blood 05/20/2024 9:18 AM CDT 05/20/2024 9:25 AM CDT Bailee Mares MULLING MACHINE OPERATOR LAB BLOOD ORDERABLES Yulia lobo Result [facility] Department [place] [address] * (ABNORMAL) Protein electrophoresis with reflex, serum with interpretation (05/20/2024 9:18 AM CDT) Protein, sr 6.2 6.2 - 8.2 g/dL Albumin 4.2 3.2 - 5.0 g/dL [facility] Alpha-1 globulin 0.3 0.2 - 0.4 g/dL [facility] Alpha-2 globulin 0.9 0.5 - 1.0 g/dL [facility] Beta-1 globulin 0.4 0.3 - 0.6 g/dL [facility] Beta-2 globulin 0.2 0.2 - 0.6 g/dL [facility] Gamma globulin 0.2(L) 0.5 - 1.7 g/dL [facility] SPEP interp Please see comment [facility] Comment: No apparent monoclonal peak Decreased gamma globulins Electrophoretic pattern appears similar to previous sample 04/23/2024 See immunotyping for further information Reviewed and signed by Vipul Stuart MD, PhD 05/21/2024 Blood 05/20/2024 9:18 AM CDT 05/20/2024 10:30 AM CDT us Bailee Mares MULLING MACHINE OPERATOR LAB BLOOD ORDERABLES Yulia l Result Performing Organization Address [facility] Co de Phone Number [facility] [place] [address] * Lactate dehydrogenase (LD) (05/20/2024 9:18 AM CDT) Lactate dehydrogenase (LDH) 182 100 - 250 Units/L Blood 05/20/2024 9:18 AM CDT 05/20/2024 9:28 AM CDT Bailee Mares MULLING MACHINE OPERATOR LAB BLOOD ORDERABLES Yulia l Result Performing Organization Address [facility] de Phone Number [facility] [place] [place] [address] * (ABNORMAL) IgA (05/20/2024 9:18 AM CDT) Immunoglobulin A <50(L) 70 - 400 mg/dL Blood 05/20/2024 9:18 AM CDT 05/20/2024 10:03 AM CDT Bailee Mares NP LAB BLOOD ORDERABLES Yulia l Result Performing Organization Address [facility] de Phone Number [facility] Department [place] [address] * (ABNORMAL) IgM (05/20/2024 9:18 AM CDT) Immunoglobulin M <25(L) 40 - 230 mg/dL Blood 05/20/2024 9:18 AM CDT 05/20/2024 10:03 AM CDT us Bailee Mares NP LAB BLOOD ORDERABLES Yulia l Result Performing Organization Address [facility]/ZIP Co de Phone Number [facility] Department [place] [address] * (ABNORMAL) IgG (05/20/2024 9:18 AM CDT) [facility] Immunoglobulin G <300(L) 700 - 1,600 mg/dL Blood 05/20/2024 9:18 AM CDT 05/20/2024 10:03 AM CDT Bailee Mares NP LAB BLOOD ORDERABLES Yulia l Result [facility] [place] [place] [address] * Comprehensive metabolic panel (05/20/2024 9:18 AM CDT) [facility] Sodium 142 135 - 145 mmol/L Potassium, pl 4.3 3.3 - 4.9 mmol/L [facility] Chloride 106 97 - 110 mmol/L [facility] CO2 26 22 - 32 mmol/L [facility] Anion gap 10 2 - 15 mmol/L [facility] BUN 16 6 - 25 mg/dL [facility] Creatinine 0.82 0.60 - 1.10 mg/dL [facility] Glucose 152 70 - 199 mg/dL [facility] Comment: Interpretive Data Fasting glucose >/= 126 mg/dl is diagnostic for diabetes. Fasting is defined as no caloric intake for at least 8 hours. Fasting glucose between 100 mg/dl to 125 mg/dl is diagnostic of prediabetes. In a patient with classic symptoms of hyperglycemia or hyperglycemic crisis, a random glucose >/= 200 mg/dl is diagnostic for diabetes. In the absence of unequivocal hyperglycemia, results should be confirmed by repeat testing. The classification and Diagnosis of Diabetes Diabetes Care 2021; 46: S19-S40. Current interpretive data was last revised 2022. Calcium 9.3 8.5 - 10.3 mg/dL [facility] Bilirubin, total 0.3 0.1 - 1.2 mg/dL [facility] Protein, pl 6.5 6.5 - 8.5 g/dL [facility] Albumin 4.2 3.5 - 5.0 g/dL [facility] Alk phos 71 40 - 130 Units/L [facility] ALT 11 7 - 45 Units/L [facility] AST 19 10 - 45 Units/L [facility] Blood 05/20/2024 9:18 AM CDT 05/20/2024 9:28 AM CDT Bailee Mares MULLING MACHINE OPERATOR LAB BLOOD ORDERABLES Yulia l Result Performing Organization Address City/[facility] Co de Phone Number [facility] Department [place] [address] * Immunotyping, serum with interpretation (04/22/2024 11:55 AM CLOTH CALENDER) Pathologist [facility] Immunosubtraction Please see comment Comment: NO PARAPROTEIN DETECTED Reviewed and signed by Brayan Ireland MD 04/23/2024 Blood 04/22/2024 11:5 5 AM CLOTH CALENDER 04/22/2024 1:43 PM CLOTH CALENDER Suman Canales MD LAB BLOOD ORDER CRISTEL Final Result Performing Organization Address [facility] Co de Phone Number [facility] Department [place] [address] * eGFR (04/22/2024 11:55 AM CLOTH CALENDER) eGFR 65 >=60 mL/min/1. 73 m2 Comment: Interpretive Data Reference Interval Normal >/= 90 mL/min/1.73m2 Mildly decreased* 60 - 89 mL/min/1.73m2 Mildly to moderately decreased 45 - 59 mL/min/1.73m2 Moderately to severely decreased 30 - 44 mL/min/1.73m2 Severely decreased 15 - 29 mL/min/1.73m2 Kidney Failure < 15 mL/min/1.73m2 *Relative to young adult level Estimated glomerular filtration rate is determined by the 2020 CKD-EPI equation recommended by the National Kidney Foundation (A Unifying Approach to GFR Estimation: Recommendations of the NKF-ASK Task Force on Reassessing the Inclusion of Race in Diagnosing Kidney Disease, JASN 2020). The CKD-EPI equation should not be used for patients with unstable renal function and has not been validated in children and those over 70. Current interpretive data was last reviewed 2020. Blood 04/22/2024 11:5 5 AM CLOTH CALENDER 04/22/2024 12:11 PM CLOTH CALENDER us Suman Canales MD LAB BLOOD ORDER CRISTEL Final Result [facility] [place] [address] * (ABNORMAL) Differential, auto (04/22/2024 11:55 AM CLOTH CALENDER) Neutrophil abs 4.4 1.5 - 6.5 K/cumm Comment:Testing performed by : [facility], [address] [place] [phone] Lymphocyte abs 0.5(L) 0.8 - 3.3 K/cumm [facility] Comment:Testing performed by : [facility], [address] [place] [phone] Monocyte abs 0.5 0.2 - 0.8 K/cumm [facility] Comment:Testing performed by : [facility], [address] [place] [phone] Eosinophil abs 0.1 0.0 - 0.5 K/cumm [facility] Comment:Testing performed by : [facility], [address] [place] [phone] Basophil abs 0.0 0.0 - 0.1 K/cumm [facility] Comment:Testing performed by : [facility], [address] [place] [phone] Neutrophil pct 79.7 % [facility] Comment: Interpretive Data Percent cell count reference ranges are not reported, since discordance with absolute values may lead to misinterpretation of CBC data. Current Interpretive Data was last revised on 2017. Testing performed by: [facility], [address] [place] [phone] Lymphocyte pct 8.2 % [facility] Comment: Interpretive Data Percent cell count reference ranges are not reported, since discordance with absolute values may lead to misinterpretation of CBC data. Current Interpretive Data was last revised on 2017. Testing performed by: [facility], [address] [place] [phone] Monocyte pct 9.5 % [facility] Comment: Interpretive Data Percent cell count reference ranges are not reported, since discordance with absolute values may lead to misinterpretation of CBC data. Current Interpretive Data was last revised on 2017. Testing performed by: [facility], [address] [place] [phone] Eosinophil pct 2.3 % [facility] Comment: Interpretive Data Percent cell count reference ranges are not reported, since discordance with absolute values may lead to misinterpretation of CBC data. Current Interpretive Data was last revised on 2017. Testing performed by: [facility], [address] [place] [phone] Basophil pct 0.3 % [facility] Comment: Interpretive Data Percent cell count reference ranges are not reported, since discordance with absolute values may lead to misinterpretation of CBC data. Current Interpretive Data was last revised on 2017. Testing performed by: [facility], [address] [place] [phone] Blood 04/22/2024 11:5 5 AM CLOTH CALENDER 04/22/2024 12:11 PM CLOTH CALENDER us Suman Canales MD LAB BLOOD ORDER CRISTEL Final Result [facility] [place] [address] * (ABNORMAL) Immunoglobulin free light chains (04/22/2024 11:55 AM CLOTH CALENDER) [place]/Lambda ratio [facility] 1.08 0.26 - 1.65 Comment: Interpretive Data The Binding Site FreeLite assay procedure was used. Results from different manufacturers or methods may not be comparable. Serial testing should be performed using the same methods and instrumentation. Current Interpretive Data was last revised on 2023. [place] free light chain BJ 0.39 0.33 - 1.94 mg/dL [facility] Comment: Interpretive Data The Binding Site FreeLite assay procedure was used. Results from different manufacturers or methods may not be comparable. Serial testing should be performed using the same methods and instrumentation. Current Interpretive Data was last revised on 2023. Lambda free light chain BJ 0.36(L) 0.57 - 2.63 mg/dL [facility] Comment: Interpretive Data The Binding Site FreeLite assay procedure was used. Results from different manufacturers or methods may not be comparable. Serial testing should be performed using the same methods and instrumentation. Current Interpretive Data was last revised on 2023. Blood 04/22/2024 11:5 5 AM CLOTH CALENDER 04/22/2024 1:42 PM CLOTH CALENDER Suman Canales MD LAB BLOOD ORDER CRISTEL Final Result [facility] Department of Laboratories [place], [place] [id number] * (ABNORMAL) CBC with auto differential (04/22/2024 11:55 AM CLOTH CALENDER) [facility] WBC 5.6 3.8 - 9.9 K/cumm Comment:Testing performed by : [facility], [address] [place] [phone] Hgb 12.2 11.9 - 15.5 g/dL [facility] Comment:Testing performed by : [facility], [address] [place] [phone] Hct 35.8 35.6 - 45.5 % [facility] Comment:Testing performed by : [facility], [address] [place] [address] Plt 250 150 - 400 K/cumm [facility]ERN[facility] Comment:Testing performed by : [facility], [address] [place] [address] MPV 9.3 6.8 - 10.4 fL [facility] Comment:Testing performed by : [facility], [address] [place] [address] RBC 3.50(L) 3.90 - 5.20 M/cumm [facility] Comment:Testing performed by : [facility], [address] [place] [address] MCV 102.2(H) 81.3 - 96.4 fL [facility] Comment:Testing performed by : [facility], [address] [place] [address] MCH 34.7(H) 27.1 - 33.3 pg [facility] Comment:Testing performed by : [facility], [address] [place] [address] MCHC 34.0 32.3 - 35.7 g/dL [facility] Comment:Testing performed by : [facility], [address] [place] [address] RDW CV 14.5 11.1 - 14.9 % [facility] Comment:Testing performed by : [facility], [address] [place] [address] NRBC abs 0.00 0.00 - 0.01 K/cumm [facility] Comment:Testing performed by : [facility], [address] [place] [address] Blood 04/22/2024 11:5 5 AM CLOTH CALENDER 04/22/2024 12:11 PM CLOTH CALENDER us Suman Canales MD LAB BLOOD ORDER CRISTEL Final Result [facility] Department [place] [address] * (ABNORMAL) Protein electrophoresis with reflex, serum with interpretation (04/22/2024 11:55 AM CLOTH CALENDER) [facility] Protein, sr 6.0(L) 6.2 - 8.2 g/dL Albumin 4.3 3.2 - 5.0 g/dL [facility] Alpha-1 globulin 0.2 0.2 - 0.4 g/dL [facility] Alpha-2 globulin 0.7 0.5 - 1.0 g/dL [facility] Beta-1 globulin 0.4 0.3 - 0.6 g/dL [facility] Beta-2 globulin 0.2 0.2 - 0.6 g/dL [facility] Gamma globulin 0.2(L) 0.5 - 1.7 g/dL [facility] SPEP interp Please see comment [facility] Comment: Possible abnormal restricted peak in gamma region Decreased gamma globulins Electrophoretic pattern appears similar to previous sample 02/19/24 See immunotyping for further information Reviewed and signed by Brayan Ireland MD 04/23/2024 Blood 04/22/2024 11:5 5 AM CLOTH CALENDER 04/22/2024 1:43 PM CLOTH CALENDER Suman Canales MD LAB BLOOD ORDER CRISTEL Final Result Performing Organization Address [facility] Co de Phone Number [facility] Department [place] [email or web address] [address] * Lactate dehydrogenase (LD) (04/22/2024 11:55 AM CLOTH CALENDER) [facility] Lactate dehydrogenase (LDH) 207 100 - 250 Units/L Blood 04/22/2024 11:5 5 AM CLOTH CALENDER 04/22/2024 12:11 PM CLOTH CALENDER Suman Canales MD LAB BLOOD ORDER CRISTEL Final Result Performing Organization Address [facility] Co de Phone Number [facility] Department [place] [address] * (ABNORMAL) IgA (04/22/2024 11:55 AM CLOTH CALENDER) Pathologist [facility] Immunoglobulin A <50(L) 70 - 400 mg/dL Blood 04/22/2024 11:5 5 AM CLOTH CALENDER 04/22/2024 12:30 PM CLOTH CALENDER Suman Canales MD LAB BLOOD ORDER CRISTEL Final Result Performing Organization Address [facility] Co de Phone Number [facility] Department [place] [address] * (ABNORMAL) IgM (04/22/2024 11:55 AM CLOTH CALENDER) [facility] Immunoglobulin M <25(L) 40 - 230 mg/dL Blood 04/22/2024 11:5 5 AM CLOTH CALENDER 04/22/2024 12:30 PM CLOTH CALENDER Suman Canales MD LAB BLOOD ORDER CRISTEL Final Result Performing Organization Address [facility] Co de Phone Number [facility] Department [place] [address] * (ABNORMAL) IgG (04/22/2024 11:55 AM CLOTH CALENDER) [facility] Immunoglobulin G <300(L) 700 - 1,600 mg/dL Blood 04/22/2024 11:5 5 AM CLOTH CALENDER 04/22/2024 12:30 PM CLOTH CALENDER Suman Canales MD LAB BLOOD ORDER CRISTEL Final Result Performing Organization Address [facility] Co de Phone Number [facility] Department [place] [address] * (ABNORMAL) Comprehensive metabolic panel (04/22/2024 11:55 AM CLOTH CALENDER) [facility] Sodium 141 135 - 145 mmol/L Potassium, pl 4.8 3.3 - 4.9 mmol/L [facility] Chloride 103 97 - 110 mmol/L [facility] CO2 30 22 - 32 mmol/L [facility] Anion gap 8 2 - 15 mmol/L [facility] BUN 23 6 - 25 mg/dL [facility] Creatinine 0.89 0.60 - 1.10 mg/dL [facility] Glucose 91 70 - 199 mg/dL [facility] Comment: Interpretive Data Fasting glucose >/= 126 mg/dl is diagnostic for diabetes. Fasting is defined as no caloric intake for at least 8 hours. Fasting glucose between 100 mg/dl to 125 mg/dl is diagnostic of prediabetes. In a patient with classic symptoms of hyperglycemia or hyperglycemic crisis, a random glucose >/= 200 mg/dl is diagnostic for diabetes. In the absence of unequivocal hyperglycemia, results should be confirmed by repeat testing. The classification and Diagnosis of Diabetes Diabetes Care 2021; 46: S19-S40. Current interpretive data was last revised 2022. Calcium 10.1 8.5 - 10.3 mg/dL [facility] Bilirubin, total 0.2 0.1 - 1.2 mg/dL [facility] Protein, pl 6.3(L) 6.5 - 8.5 g/dL [facility] Albumin 4.3 3.5 - 5.0 g/dL [facility] Alk phos 63 40 - 130 Units/L [facility] ALT 12 7 - 45 Units/L [facility] AST 23 10 - 45 Units/L [facility] Blood 04/22/2024 11:5 5 AM CLOTH CALENDER 04/22/2024 12:11 PM CLOTH CALENDER us Suman Canales MD LAB BLOOD ORDER CRISTEL Final Result [facility] Department [place] [address] from Last 3 Months Insurance MEDICARE BLUE CROSS MEDICARE SUPPLEMENT MEDICARE REPLACED BY [facility] MEDICARE MEDICARE REPLACED BY [facility] MEDICARE [facility] MEDICARE SUPPLEMENT Advance Directives For more information, please contact: [phone] * Full Code (Latest Code Status on File) Date Activated Date Inactivated Comments 08/07/2023 9:27 AM 08/07/2023 2:39 PM * Full Code Date Activated Date Inactivated Comments 04/11/2023 11:41 AM 04/11/2023 6:33 PM * LIMITED - No CPR Date Activated Date Inactivated Comments 02/26/2023 9:54 PM 03/04/2023 8:58 PM Question Answer Comments Provide aggressive medical m anagement before a full cardiopulmonary arrest occurs. Use antibiotics, IV Fluids, and medical treatment unless specifically selected below: No intubationNo non-invasive ventilation * Full Code Date Activated Date Inactivated Comments 02/26/2023 9:11 PM 02/26/2023 9:54 PM * Full Code Date Activated Date Inactivated Comments 01/13/2023 11:50 PM 01/19/2023 9:49 PM Care Teams Unclaimed Property Officer Relationship Specialty Start Date End Date Low Alvarez MD [address] [place] [address] PCP - General Internal Medicine 10/22/19 Trae Thompson MD Surgeon Colon and Rectal Surgery 06/25/19 Onofre James MD PhD Consulting Physician Gastroenterology 06/25/19 Brown Handley MD [address] [place] [address] Manager [employer] Gastroenterology 12/10/19 Juan Diego Etienne MD [address] [place] [address] Referring Physician Cardiology 01/04/22
--- OUTSIDE RECORDS SUMMARY | 2024-07-03 17:29 | XMS_ITS | Referral Summary ---
Author Organization [facility] Address [address] [place] [address] Care Team Providers Care Ramp Service Employee Name Role Phone Trae Thompson MD Unavailable Onofre James MD PhD Unavailable Low Alvarez MD Primary Care Provider [phone] Brown Handley MD Unavailable Juan Diego Etienne MD Unavailable [phone] Encounters Date Type Department Care Team Description 06/24/2024 8:00 AM CDT Office Visit [facility] [address] [place] [address] [phone] Bailee Mares, YVES Multiple myeloma, remission status unspecified (HCC) (Primary Dx) 06/24/2024 7:00 AM CDT Clinical Support [facility] 6 [place] [address] Multiple myeloma, remission status unspecified (HCC) 06/24/2024 9:00 AM CDT Infusion [facility] [address] [address] Multiple myeloma, remission status unspecified (HCC) (Primary Dx) 06/19/2024 Orders Only [facility] [address] [place] [phone] VishnuBailee danielle NP 06/17/2024 Orders Only [facility]plant [address] [facility] Floor 6 [place] [address] Bailee Mares NP 06/14/2024 12:49 AM CDT - 06/14/2024 5:17 AM CDT Emergency [facility] Emergency Department 1 [place] [address] Krista Borden MD Rhinovirus infection (Primary Dx) Discharge Disposition: Discharge to home or self care 05/20/2024 9:00 AM CDT Clinical Support [facility] [address] [facility] Floor 6 [place] [address] Multiple myeloma, remission status unspecified (HCC) 05/20/2024 10:00 AM CDT Infusion [facility] [address] [facility] Floor 6 [place] [address] Multiple myeloma not having achieved remission (HCC) (Primary Dx); Multiple myeloma, remission status unspecified (HCC) 05/15/2024 10:30 AM CDT Office Visit [facility] Cardiology [facility] 8th [place] [address] [place] [address] Aisha Simpson NP Heart failure with reduced ejection fraction (HCC) (Primary Dx) 05/14/2024 Orders Only [facility] Floor 6 [place] [address] Bailee Mares NP Multiple myeloma, remission status unspecified (HCC) (Primary Dx) 04/22/2024 11:30 AM AWARD CLERK Clinical Support [facility] - Lab Collection [address] [facility] Floor 6 [place] [address] Multiple myeloma, remission status unspecified (HCC) 04/22/2024 1:30 PM AWARD CLERK Infusion [facility] - Infusion [address] Floor 5 [place] [address] Multiple myeloma not having achieved remission (HCC) (Primary Dx); Multiple myeloma, remission status unspecified (HCC) 04/22/2024 12:30 PM AWARD CLERK Office Visit [facility]row Transplant [facility] 6 [place] [address] Bailee Mares NP Multiple myeloma, remission status unspecified (HCC) (Primary Dx) 04/14/2024 Orders Only [facility] 6 [place] [address] Suman Lackey MD from Last 3 Months Allergies Active Allergy Reactions Criticality Noted Date [...] (180 mg total) by mouth as needed 020 Active methylcellulose (CITRUCEL ORAL) Take by mouth every morning Active pantoprazole DR (PROTONIX) 40 mg EC tablet Take 1 tablet (40 mg total) by mouth every morning 021 Active coenzyme Q10 100 mg capsule Take [...] no or minimal response. 2 each 1 Active meclizine (ANTIVERT) 25 mg tablet Take [...] as needed for nausea 30 tablet 3 Active meclizine (ANTIVERT) 12.5 mg tablet Take 1 tablet (12.5 mg total) by mouth 2 (two) times a day as needed for dizziness for up to 10 days 20 tablet Active lidocaine-priloca ine (EMLA) cream Apply topically [...] Inpatient Care Coordination Overview Diagnosis [place] Floor [address] Treatment Plan Stacie/velcade/dex Reason for Admission 02/26/23 - recurrent LLQ Abd pain, N/V Transplant/IEC Planning BMT/IEC Plan HLA typing/IDMs [] Insurance Approval [] Discharge Planning Anticipated Discharge Date 03/02 Patient Education Completed [x] Issue to be Resolved Before Discharge Discharge Disposition HOME Requests Sent to Case Management, Pharmacy PA Team, or Medical Assistants Post-Discharge Follow-Up Living Situation/Distance from [facility] Caregiver Lab/Transfusion Frequency Labs are stable Venous Access & Care implanted vascular device Local Oncologist Contact Phone: Fax: Post-Discharge Office Visit (H30) [place] 03/27 Miscellaneous Notes: Problem Noted Date Diagnosed Date Esophageal thickening 08/01/2023 Abnormal gastrointestinal PET scan 08/01/[address] scan 03/13/2023 History of colon polyps 03/13/2023 Anxiety 03/03/2023 Assessment & Plan (03/03/2023 1:12 PM AWARD CLERK): Continue Sertraline 50 mg daily. LLQ abdominal pain 02/27/2023 Assessment & Plan (03/03/2023 1:11 PM AWARD CLERK): Presents with 3 days of diarrhea, nausea [...] empiric therapy for acute diverticulitis at the [facility] given prior GI history, prior similar [...] Stable exam in clinic. Continue current regimen. 02/27 dose 24/26 mg BID entresto and coreg. We made no additional changes today. I asked that she continue to monitor her BP at home with good improvement in her EF will not push to add SGLT2i or MRA at this point. Dr. Etienne in 6 months. Assessment & Plan (02/27/2023 3:30 PM AWARD CLERK): EF35% TTE 05/29/22 No features of active heart failure or volume overload. GMDT: coreg 3.125 mg BID-hold for dehydration and poor oral intake Suspected Pneumonia 01/14/2023 Assessment & Plan (01/14/2023 1:05 AM AWARD CLERK): Recent COVID-19 tested positive on 01/03/2023 treated [...] 01/14/2023 Assessment & Plan (01/14/2023 1:04 AM AWARD CLERK): Continue home Breo and Singulair Abnormal urinalysis 01/14/2023 Assessment & Plan (01/14/2023 1:07 AM AWARD CLERK): UA was positive for 1+ leukocyte esterase, 11-20 WBCs, 2+ bacteria. Denies any urinary frequency/dysuria/hematuria Status post Macrobid 1 dose in the [facility] Already on IV ceftriaxone for suspected pneumonia Moderate protein-calorie malnutrition 01/14/2023 Hx of multiple myeloma 01/13/2023 Vertigo 12/18/2022 Assessment & Plan (01/14/2023 1:07 AM AWARD CLERK): Meclizine p.r.n. Assessment & Plan (12/18/2022 12:23 PM CDT): Symptoms consistent with vertigo. - Discharge home with meclizine QID PRN - Counseled pt on safety and fall prevention - Ambulating well with cane Hypothyroidism, unspecified 12/17/2022 Assessment & Plan (01/14/2023 1:00 AM AWARD CLERK): Continue levothyroxine 50 mcg daily Assessment & Plan (12/17/2022 11:47 AM CDT): - c/w home synthroid. Anemia due to chemotherapy 07/11/2022 History of ischemic Cardiomyopathy 07/10/2022 Assessment & Plan (01/14/2023 1:02 AM AWARD CLERK): Now with recovered LVEF( previously EF 46% [...] 06/23/2022 Cancer Staging:Clinical stage from 07/11/2022:RISS Stage III(Pxft-7-qpjxwrygwndqo (mg/L): 27.7, Albumin (g/dL): 3.6, ISS: Stage III, High-risk cytogenetics: Present, LDH: Normal) - Signed by Tiago Currie MD on 07/11/2022 Assessment & Plan (03/01/2023 5:41 PM AWARD CLERK): Diagnosed May 2022. IgA Lambda Multiple Myeloma, [...] prn. Assessment & Plan (01/14/2023 12:59 AM AWARD CLERK): s/[id number] of daratumumab/Bortezomib/Dexamethasone on 01/02/23 Transfuse per [...] (01/09/2022): Added automatically from request for surgery [id number] CAD (coronary artery disease) 04/06/2021 Assessment & Plan (01/14/2023 1:02 AM AWARD CLERK): s/p PCI-LAD 12/24/2020 Continue aspirin, Coreg Assessment & Plan (07/10/2022 2:22 PM CDT): Denies any chest pain. Does admit to some dyspnea with exertion such as taking the stairs. Unclear etiology as it could be multi-factorial secondary to deconditioning, multiple myeloma and anemia (most recent hemoglobin 8.7). Continue aspirin, carvedilol and losartan. Essential hypertension 08/02/2020 Assessment & Plan (01/14/2023 1:00 AM AWARD CLERK): Blood pressure stable Continue Coreg Assessment & Plan (12/18/2022 12:20 PM CDT): - Hold coreg, lasix, aldactone and losartan overnight. Can resume at discharge. Assessment & Plan (07/10/2022 2:19 PM CDT): Well controlled. Continue Carvedilol, losartan and spironolactone. Dyslipidemia 04/26/2020 Assessment & Plan (02/27/2023 3:33 PM AWARD CLERK): Continue ezetimibe Assessment & Plan (07/10/2022 2:18 PM CDT): Last LDL at goal of < 70. Continue Zetia and [place] 3. 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 2001,R breast,T1BN0([facility] involved 2/3), ER+,CO+,Her2 neg AC x [...] III [] IV ER: Positive CO: Positive Srz9Kuo: Negative Surgery: [x] Yes [] No Surgery [...] 3.5mm which were intermediate grade with a Bush score of 6 out of 9, margins [...] diseases and does not alter medical intervention. [employer] has a variant classification program which performs [...] other tests as indicated on each visit CONSUMER EXPERIENCE CONSULTANT Continue your yearly visit. *Physical exam and other tests (Pap test) as indicated on each visit. Please continue to see your primary care physician/CONSUMER EXPERIENCE CONSULTANT for all general health care recommended for a female your age. Possible late and/or supervisor intermediates effects that someone with this type of [...] Received flu shot 13) [employer] at local [facility] REFERRALS [] Star [] [facility] [] [facility] [employer] at the [facility] [] Other (Specify): ADDITIONAL RESOURCES Patients may have many questions and concerns after their cancer treatment ends. A list of local resources as provided below to assist you. [facility] cancer information center: [employer] Society (ACS): www.acs.org National Cancer [place] (NCI): www.cancer.gov [place] Society of clinical oncology (ASCO): www.cancer.net K[employer]: www.komen.org [employer]: [email or web address] Radiation therapy: www.rtanswers.org Patient signature: M.D./MEAT CURER/RN signature: Date delivered on: 02/04/2016 60 minutes of time were spent with the patient and over 50% of time was spent in counseling, discussing her issues, chief complaints, diet, exercise, prevention, supplements, etc. or in the coordination of care. Resolved Problems Problem Noted Date Diagnosed Date Resolved Date Malnutrition 02/27/2023 03/04/2023 Assessment & Plan (02/27/2023 3:29 PM AWARD CLERK): Presents with significant weight loss with examination revealing temporal depression, loss of buccal fat and shrunken cheeks Meets the criteria for malnutrition Plan: Will obtain RD consult Encourage PO intake (>50% of portion of meals) Assistance with meals as needed by family timber surveyor/provider team Weekly weights and charting Oral nutrition supplementation TID Nausea & vomiting 12/16/2022 03/04/2023 Assessment & Plan (12/17/2022 11:44 AM CDT): - supportive care with anti-emetics PRN Diverticulitis 09/04/2019 11/01/2019 Overview (09/04/2019): Added automatically from request for surgery [id number] Sigmoid diverticulitis 09/03/201910/31 Immunizations Immunization Administration Dates Next Due Influenza, [...] 13 01/24/2018, 016 Pneumococcal Polysaccharide PPV23 01/23/2012 Social History Tobacco Use Types Packs/Day Years Used Date Smoking Tobacco: Never Smokeless Tobacco: Never Tobacco Cessation:Counseling Given: Not Answered Alcohol Use Standard Drinks/Week Comments Yes 0 (1 standard drink = 0.6 oz pur e alcohol) occ glass of wine Tabbloities Answer Date Recorded In the past 12 months has UTILICASE, Backspaces, or water Overtone threatened to shut off services in your [...] 03/02/2023 How often do you attend chur or zoroastrianism services? Never 03/02/2023 Do you belong to any clubs o r organizations such as jehovah's witness groups, unions, fraternal or athletic groups, or [...] place to sleep or slept in a intermediate (including now)? No 03/02/2023 Personal Safety Answer Date Recorded Have you ever been in or are you currently in a harmful physical or emotional relationship or is someone making you feel afraid or unsafe? Denies 06/13/2024 Comments No Sex and Gender Information Value Date Recorded Sex Assigned at Not on file Legal Sex Female 10:03 AM AWARD CLERK Gender Identity Female 11/27/2023 9:47 AM CDT Sexual Orientation Not on file Last Filed [...] 06/24/2024 7:58 AM CDT Plan of Treatment Not on file Medical Devices Implanted Type Area Manager Epic Device Identifier Shelf Expiration Date Model / Serial / Lot [employer] Inc/C R Bard [id number] Monofilament Soft Lightweight Low Profile Square - [id number] Implanted:Qty: 1 on 03/27/2022 by Shiva Galdamez MD at [facility] Mesh N/A: Abdomen [employer]/C R Bard [id number] 07/23/2026 [id number] / / [id number] [employer] Bandar [id number] Synergy Xd Monorail 2.5mm 16mm 144cm Delivery System 1 Access - [id number] - [id number] Implanted:Qty: 1 on 12/24/2020 by Juan Diego Etienne MD at [facility] Stent Left: Coronary [employer] Bandar 07/12/2022 [id number] / [id number] / [id number] Bilateral Total Knee Arthroplasty Knee [employer] Excela Low Porfile Power Port 8fr 1.6mm 1 Lumen [id number] - [id number] Implanted:Qty: 1 on 08/01/2022 at [facility] [employer] 03/26/2027 [id number] 1 0 / / [id number] Procedures Procedure Name Priority Date/Time Associated Diagnosis [...] unspecified (HCC) EGFR STAT 04/22/2024 11:55 AM AWARD CLERK Multiple myeloma, remission status unspecified (HCC) DIFFERENTIAL AUTO Routine 04/22/2024 11: 55 AM AWARD CLERK Multiple myeloma, remission status unspecified (HCC) PROTEIN ELECTROPHORESIS, WITH REFLEX, SERUM Routine 04/22/2024 11:55 AM AWARD CLERK Multiple myeloma, remission status unspecified (HCC) IGG Routine 04/22/2024 11:55 AM AWARD CLERK Multiple myeloma, remission status unspecified (HCC) IGM Routine 04/22/2024 11:55 AM AWARD CLERK Multiple myeloma, remission status unspecified (HCC) IGA Routine 04/22/2024 11:55 AM AWARD CLERK Multiple myeloma, remission status unspecified (HCC) IMMUNOGLOBULIN FREE LIGHT CHAINS Routine 04/22/2024 11:55 AM AWARD CLERK Multiple myeloma, remission status unspecified (HCC) IMMUNOTYPING Routine 04/22/2024 11:55 AM AWARD CLERK Multiple myeloma, remission status unspecified (HCC) LACTATE DEHYDROGENASE Routine 04/22/2024 11:55 AM AWARD CLERK Multiple myeloma, remission status unspecified (HCC) CBC WITH AUTO DIFFERENTIAL Routine 04/22/2024 11:55 AM AWARD CLERK Multiple myeloma, remission status unspecified (HCC) COMPREHENSIVE METABOLIC PANEL STAT 04/22/2024 11:55 AM AWARD CLERK Multiple myeloma, remission status unspecified (HCC) from Last 3 Months Results * Immunotyping, serum with interpretation (06/24/2024 7:30 AM CDT) Immunosubtraction Please see comment Comment: SMALL IGG KAPPA PARAPROTEIN Reviewed and signed by Brayan Ireland MD 06/25/2024 Blood 06/24/2024 7:30 AM CDT 06/24/2024 8:43 AM CDT Suman Canales MD LAB BLOOD ORDER CRISTEL Final Result Performing Organization Address City/State/ZIP Co wa Phone Number [facility] Department [place] [address] * eGFR (06/24/2024 7:30 AM CDT) eGFR [...] MD LAB BLOOD ORDER CRISTEL Final Result [facility] Department [place] [address] * Differential, auto (06/24/2024 7:30 AM CDT) Neutrophil abs 2.43 1.50 - 6.50 K/cumm Comment:Testing performed by : [facility], [address] [place] [address] Lymphocyte abs 0.81 0.80 - 3.30 K/cumm [facility] Comment:Testing performed by : [facility], [address] [place], [place] [phone] Monocyte abs 0.67 0.20 - 0.80 K/cumm [facility] Comment:Testing performed by : [facility], [address] [place], [place] [phone] Eosinophil abs 0.15 0.00 - 0.50 K/cumm [facility] Comment:Testing performed by : [facility], [address] [place] [phone] Basophil abs 0.03 0.00 - 0.10 K/cumm [facility] Comment:Testing performed by : [facility], [address] [place] [phone] Neutrophil pct 59.4 % [facility] Comment: Interpretive Data Percent cell count reference ranges are not reported, since discordance with absolute values may lead to misinterpretation of CBC data. Current Interpretive Data was last revised on 2017. Testing performed by: [facility], [address] [place] [phone] Lymphocyte pct 19.9 % CERNER [facility] Comment: Interpretive Data Percent cell count reference ranges are not reported, since discordance with absolute values may lead to misinterpretation of CBC data. Current Interpretive Data was last revised on 2017. Testing performed by: [facility], [address] [place] [phone] Monocyte pct 16.5 % [facility] Comment: Interpretive Data Percent cell count reference ranges are not reported, since discordance with absolute values may lead to misinterpretation of CBC data. Current Interpretive Data was last revised on 2017. Testing performed by: [facility], [address] [place] [phone] Eosinophil pct 3.6 % [facility] Comment: Interpretive Data Percent cell count reference ranges are not reported, since discordance with absolute values may lead to misinterpretation of CBC data. Current Interpretive Data was last revised on 2017. Testing performed by: [facility], [address] [place] [phone] Basophil pct 0.7 % [facility] Comment: Interpretive Data Percent cell count reference ranges are not reported, since discordance with absolute values may lead to misinterpretation of CBC data. Current Interpretive Data was last revised on 2017. Testing performed by: [facility], [address] [place] [phone] Blood 06/24/2024 7:30 AM CDT 06/24/2024 7:46 AM CDT Suman Canales MD LAB BLOOD ORDER CRISTEL Final Result [facility] Department [place] [address] * (ABNORMAL) Immunoglobulin free light chains (06/24/2024 7:30 AM CDT) [place]/Lambda ratio [facility] 0.35 0.26 - 1.65 Comment: Interpretive Data The Binding Site FreeLite assay procedure was used. Results from different manufacturers or methods may not be comparable. Serial testing should be performed using the same methods and instrumentation. Current Interpretive Data was last revised on 2023. [place] free light chain [facility] 0.25(L) 0.33 - 1.94 mg/dL [facility] Comment: Interpretive Data The Binding Site FreeLite assay procedure was used. Results from different manufacturers or methods may not be comparable. Serial testing should be performed using the same methods and instrumentation. Current Interpretive Data was last revised on 2023. Lambda free light chain [facility] 0.72 0.57 - 2.63 mg/dL [facility] Comment: [...] MD LAB BLOOD ORDER CRISTEL Final Result [facility] Department [place] [address] * (ABNORMAL) CBC with auto differential (06/24/2024 7:30 AM CDT) WBC 4.09 3.80 - 9.90 K/cumm Comment:Testing performed by : [facility], [address] [place] [address] Hgb 11.5(L) 11.9 - 15.5 g/dL [facility] Comment:Testing performed by : [facility], [address] [place] [address] Hct 34.1(L) 35.6 - 45.5 % [facility] Comment:Testing performed by : [facility], [address] [place] [phone] Plt 226 150 - 400 K/cumm [facility] Comment:Testing performed by : [facility], [address] [place] [address] MPV 9.0 6.8 - 10.4 fL [facility] Comment:Testing performed by : [facility], [address] [place] [address] RBC 3.36(L) 3.90 - 5.20 M/cumm [facility] Comment:Testing performed by : [facility], [address] [place] [address] MCV 101.4(H) 81.3 - 96.4 fL [facility] Comment:Testing performed by : [facility], [address] [place] [address] MCH 34.3(H) 27.1 - 33.3 pg [facility] Comment:Testing performed by : [facility], [address] [place] [address] MCHC 33.8 32.3 - 35.7 g/dL [facility] Comment:Testing performed by : [facility], [address] [place] [address] RDW CV 13.7 11.1 - 14.9 % [facility] Comment:Testing performed by : [facility], [address] [place] [address] NRBC abs 0.00 0.00 - 0.01 K/cumm [facility] Comment:Testing performed by : [facility], [address] [place] [address] Blood 06/24/2024 7:30 AM CDT 06/24/2024 7:46 AM CDT Suman Canales MD LAB BLOOD ORDER CRISTEL Final Result [facility] Department of Laboratories [place], [place] [id number] * (ABNORMAL) Protein electrophoresis with reflex, serum with interpretation (06/24/2024 7:30 AM CDT) Protein, sr 5.9(L) 6.2 - 8.2 g/dL Albumin 4.0 3.2 - 5.0 g/dL [facility] Alpha-1 globulin 0.3 0.2 - 0.4 g/dL [facility] Alpha-2 globulin 0.8 0.5 - 1.0 g/dL [facility] Beta-1 globulin 0.4 0.3 - 0.6 g/dL [facility] Beta-2 globulin 0.2 0.2 - 0.6 g/dL [facility] Gamma globulin 0.3(L) 0.5 - 1.7 g/dL [facility] SPEP interp Please see comment [facility] Comment: Abnormal restricted peak in gamma region Quantity of restricted peak too low to quantify accurately Decreased gamma globulins Electrophoretic pattern appears similar to previous sample 05/21/2024 *See immunotyping for further information Reviewed and signed by Brayan Ireland MD 06/26/2024 Blood 06/24/2024 7:30 AM CDT 06/24/2024 8:43 AM CDT Suman Canales MD LAB BLOOD ORDER CRISTEL Final Result [facility] Department [place] [address] * Lactate dehydrogenase (LD) (06/24/2024 7:30 AM CDT) Pathologist [facility] Lactate dehydrogenase (LDH) 188 100 - 250 Units/L Blood 06/24/2024 7:30 AM CDT 06/24/2024 7:48 AM CDT Suman Canales MD LAB BLOOD ORDER CRISTEL Final Result [facility] Department [place] [address] * (ABNORMAL) IgA (06/24/2024 7:30 AM CDT) Immunoglobulin A <50(L) 70 - 400 mg/dL Blood 06/24/2024 7:30 AM CDT 06/24/2024 8:05 AM CDT Suman Canales MD LAB BLOOD ORDER CRISTEL Final Result Performing Organization Address City/[facility] [facility] Co de Phone Number [facility] [place] [address] * (ABNORMAL) IgM (06/24/2024 7:30 AM CDT) [facility] Immunoglobulin M <25(L) 40 - 230 mg/dL Blood 06/24/2024 7:30 AM CDT 06/24/2024 8:05 AM CDT Suman Canales MD LAB BLOOD ORDER CRISTEL Final Result Performing Organization Address [facility] de Phone Number [facility] [place] [address] * (ABNORMAL) IgG (06/24/2024 7:30 AM CDT) [facility] Immunoglobulin G <300(L) 700 - 1,600 mg/dL Blood 06/24/2024 7:30 AM CDT 06/24/2024 8:05 AM CDT Suman Canales MD LAB BLOOD ORDER CRISTEL Final Result Performing Organization Address [facility] [place] [address] * (ABNORMAL) Comprehensive metabolic panel (06/24/2024 7:30 AM CDT) [facility] Sodium 141 135 - 145 mmol/L Potassium, pl 4.6 3.3 - 4.9 mmol/L [facility] Chloride 105 97 - 110 mmol/L [facility] CO2 31 22 - 32 mmol/L [facility] Anion gap 5 2 - 15 mmol/L [facility] BUN 13 6 - 25 mg/dL [facility] Creatinine 0.92 0.60 - 1.10 mg/dL [facility] Glucose 100 70 - 199 mg/dL [facility] Comment: Interpretive Data Fasting glucose >/= 126 [...] 2022. Calcium 9.7 8.5 - 10.3 mg/dL [facility] Bilirubin, total 0.4 0.1 - 1.2 mg/dL [facility] Protein, pl 6.2(L) 6.5 - 8.5 g/dL [facility] Albumin 4.2 3.5 - 5.0 g/dL [facility] Alk phos 43 40 - 130 Units/L [facility] ALT 13 7 - 45 Units/L [facility] AST 23 10 - 45 Units/L [facility] Blood 06/24/2024 7:30 AM CDT 06/24/2024 7:48 AM CDT us Suman Canales MD LAB BLOOD ORDER CRISTEL Final Result Performing Organization Address City/[facility]/ZIP Co de Phone Number [facility] Department [place] [address] * Lactate (06/14/2024 1:20 AM CDT) Pathologist [facility] Lactate 1.1 0.7 - 2.0 mmol/L Blood 06/14/2024 1:20 AM CDT 06/14/2024 1:36 AM CDT us José Miguel Hernandez MD LAB BLOOD ORDERABLES Yulia l Result [facility] [place] [address] * (ABNORMAL) Blood gas, venous (06/14/2024 1:20 AM CDT) pH, Venous 7.48(H) 7.32 - 7.43 PCO2, Venous 31(L) 40 - 50 mmHg [facility] PO2, Venous 30 mmHg [facility] Comment: Interpretive Data No Reference Range Established Current Interpretive Data was last revised on 2017. HCO3 Venous, Calculated 24 20 - 30 mmol/L [facility] BE, venous 0 mmol/L [facility] Comment: Interpretive Data No Reference Range Established Current Interpretive Data was last revised on 2017. Blood 06/14/2024 1:20 AM CDT 06/14/2024 1:28 AM CDT José Miguel Hernandez MD LAB BLOOD ORDERABLES Yulia l Result Performing Organization Address [facility] Co de Phone Number [facility] Department [place] [address] * Troponin I high-sensitivity 4-hour (06/14/2024 1:16 AM CDT) Pathologist [facility] Trop I hs 7 <=17 ng/L Comment: Interpretive Data For further [facility] resources including the diagnostic algorithm and an aid in interpretation, copy and paste this link: [email or web address].[email or web address]/[email or web address] Current Interpretive Data last revised 2019. Trop I hs delta 1 ng/L [facility] Trop I hs interp Insignificant [facility] Blood 06/14/2024 1:16 AM CDT 06/14/2024 1:35 AM CDT Vlad Horton MD LAB BLOOD ORDERABLES F inal Result Performing Organization Address [facility]/ZIP Co de Phone Number [facility] Department [place] [address] * XR Chest PA Lateral 2 Views [...] Interpretive Data last revised 2019. Blood 06/13/2024 8:47 PM CDT 06/13/2024 9:03 PM CDT us Krista Borden MD LAB BLOOD ORDERABLES Final Result Performing Organization Address City/[facility]/ZIP Co de Phone Number [facility] [place] [address] * eGFR (06/13/2024 8:47 PM CDT) eGFR [...] BLOOD ORDERABLES Final Result Performing Organization Address City/[facility]/ZIP Co de Phone Number [facility] [place] [address] * (ABNORMAL) Differential, auto (06/13/2024 8:47 PM CDT) Neutrophil abs 3.42 1.50 - 6.50 K/cumm Imm gran abs 0.02 0.00 - 0.10 K/cumm [facility] Lymphocyte abs 0.68(L) 0.80 - 3.30 K/cumm [facility] Monocyte abs 0.81(H) 0.20 - 0.80 K/cumm [facility] Eosinophil abs 0.16 0.00 - 0.50 K/cumm [facility] Basophil abs 0.03 0.00 - 0.10 K/cumm [facility] Neutrophil pct 66.8 % [facility] Comment: Interpretive Data Percent cell count reference ranges are not reported, since discordance with absolute values may lead to misinterpretation of CBC data. Current Interpretive Data was last revised on 2017. Imm gran pct 0.4 % [facility] Comment: Interpretive Data Percent cell count reference ranges are not reported, since discordance with absolute values may lead to misinterpretation of CBC data. Current Interpretive Data was last revised on 2017. Lymphocyte pct 13.3 % [facility] Comment: Interpretive Data Percent cell count reference ranges are not reported, since discordance with absolute values may lead to misinterpretation of CBC data. Current Interpretive Data was last revised on 2017. Monocyte pct 15.8 % [facility] Comment: Interpretive Data Percent cell count reference ranges are not reported, since discordance with absolute values may lead to misinterpretation of CBC data. Current Interpretive Data was last revised on 2017. Eosinophil pct 3.1 % [facility] Comment: Interpretive Data Percent cell count reference ranges are not reported, since discordance with absolute values may lead to misinterpretation of CBC data. Current Interpretive Data was last revised on 2017. Basophil pct 0.6 % [facility] Comment: Interpretive Data Percent cell count reference ranges are not reported, since discordance with absolute values may lead to misinterpretation of CBC data. Current Interpretive Data was last revised on 2017. Blood 06/13/2024 8:47 PM CDT 06/13/2024 9:03 PM CDT us Krista Borden MD LAB BLOOD ORDERABLES Final Result [facility] Department [place] [address] * (ABNORMAL) CBC with auto differential (06/13/2024 8:47 PM CDT) [facility] WBC 5.12 3.80 - 9.90 K/cumm Hgb 13.0 11.9 - 15.5 g/dL [facility] Hct 37.7 35.6 - 45.5 % [facility] Plt 226 150 - 400 K/cumm [facility] MPV 10.8 9.1 - 12.3 fL [facility] RBC 3.78(L) 3.90 - 5.20 M/cumm [facility] MCV 99.7(H) 81.3 - 96.4 fL [facility] MCH 34.4(H) 27.1 - 33.3 pg [facility] MCHC 34.5 32.3 - 35.7 g/dL [facility] RDW CV 13.1 11.1 - 14.9 % [facility] RDW SD 47.9 35.7 - 48.1 fL [facility] NRBC abs 0.00 0.00 - 0.01 K/cumm [facility] Blood 06/13/2024 8:47 PM CDT 06/13/2024 9:03 PM CDT us Krista Borden MD LAB BLOOD ORDERABLES Final Result [facility] Department [place] [address] * Comprehensive metabolic panel (06/13/2024 8:47 PM CDT) [facility] Sodium 144 135 - 145 mmol/L Potassium, pl 4.1 3.3 - 4.9 mmol/L [facility] Chloride 107 97 - 110 mmol/L [facility] CO2 26 22 - 32 mmol/L [facility] Anion gap 11 2 - 15 mmol/L [facility] BUN 15 6 - 25 mg/dL [facility] Creatinine 0.91 0.60 - 1.10 mg/dL [facility] Glucose 86 70 - 199 mg/dL [facility] Comment: Interpretive Data Fasting glucose >/= 126 [...] classification and Diagnosis of Diabetes Diabetes Care 202; 46: S19-S40. Current interpretive data was last revised 2022. Calcium 9.6 8.5 - 10.3 mg/dL [facility] Bilirubin, total 0.3 0.1 - 1.2 mg/dL [facility] Protein, pl 6.8 6.5 - 8.5 g/dL [facility] Albumin 4.4 3.5 - 5.0 g/dL [facility] Alk phos 45 40 - 130 Units/L [facility] ALT 20 7 - 45 Units/L [facility] AST 39 10 - 45 Units/L [facility] Blood 06/13/2024 8:47 PM CDT 06/13/2024 9:03 PM CDT us Krista Borden MD LAB BLOOD ORDERABLES Final Result [facility] Department [place] [address] * ECG 12-LEAD (06/13/2024 8:37 PM CDT) Narrative [facility] - 06/13/2024 8:37 PM CDT Isabella Foley [...] in the ED Isabella Foley MD 06/13/242039 Krista Borden MD ECG ORDERABLES Final Resu lt [facility] * (ABNORMAL) Respiratory pathogen panel Nasopharyngeal (06/13/2024 8:35 PM CDT) Pathologist [facility] Influenza A RNA Not Detected Not Detected Influenza B RNA Not Detected Not Detected [facility] RSV RNA Not Detected Not Detected [facility] COVID-19 RNA Not Detected Not Detected [facility] Coronavirus 229E RNA Not Detected Not Detected [facility] Coronavirus HKU1 RNA Not Detected Not Detected [facility] Coronavirus NL63 RNA Not Detected Not Detected [facility] Coronavirus OC43 RNA Not Detected Not Detected [facility] Adenovirus DNA Not Detected Not Detected [facility] Metapneumovirus RNA Not Detected Not Detected [facility] Rhinovirus/Enterov irus RNA Detected(A) Not Detected [facility] Parainfluenza 1 RNA Not Detected Not Detected [facility] Parainfluenza 2 RNA Not Detected Not Detected [facility] Parainfluenza 3 RNA Not Detected Not Detected [facility] Parainfluenza 4 RNA Not Detected Not Detected [facility] B. pertussis DNA Not Detected Not Detected [facility] B. parapertussis DNA Not Detected Not Detected [facility] C. pneumoniae DNA Not Detected Not Detected [facility] M. pneumoniae DNA Not Detected Not Detected [facility] Nasopharyngeal 06/13/2024 8: 35 PM CDT 06/13/2024 8:43 PM CDT [facility] 06[facility]13[facility] 9:44 PM CDT Is the Patient experiencing symptoms consistent with COVID?->Yes Surveillance testing for transplant patient?->No Interpretive Data The [employer] FilmArray Respiratory Panel (RP2.1) assay is a [...] assay has FDA clearance for testing of MEAT CURER swabs. The performance of additional specimen types has been assessed by the performing laboratory. The performance characteristics of this assay have been determined by [facility] Molecular Infectious Disease Laboratory. Current interpretive data was last revised on 21. Krista Borden MD LAB MICROBIOLOGY - GENERAL ORDERABLES Final Result Performing Organization Address City/[facility] Co de Phone Number [facility] Department [place] [address] * Immunotyping, serum with interpretation (05/20/2024 9:18 AM CDT) Pathologist [facility] Immunosubtraction Please see comment Comment: SMALL IGG KAPPA PARAPROTEIN Reviewed and signed by Vipul Stuart MD, PhD 05/21/2024 Blood 05/20/2024 9:18 AM CDT 05/20/2024 10:30 AM CDT Bailee Mares MEAT CURER LAB BLOOD ORDERABLES Yulia l Result Performing Organization Address City/[facility] Co de Phone Number [facility] Department [place] [address] * eGFR (05/20/2024 9:18 AM CDT) Pathologist [facility] eGFR 71 >=60 mL/min/1. 73 m2 Comment: [...] CDT 05/20/2024 9:28 AM CDT Bailee Mares MEAT CURER LAB BLOOD ORDERABLES Yulia l Result [facility] Department of Laboratories [place], [place] [id number] * (ABNORMAL) Differential, auto (05/20/2024 9:18 AM CDT) Neutrophil abs 5.1 1.5 - 6.5 K/cumm Comment:Testing performed by : [facility], [address] [place] [phone] Lymphocyte abs 0.4(L) 0.8 - 3.3 K/cumm [facility] Comment:Testing performed by : [facility], [address] [place] [phone] Monocyte abs 0.7 0.2 - 0.8 K/cumm [facility] Comment:Testing performed by : [facility], [address] [place] [phone] Eosinophil abs 0.1 0.0 - 0.5 K/cumm [facility] Comment:Testing performed by : [facility], [address] [place] [phone] Basophil abs 0.1 0.0 - 0.1 K/cumm [facility] Comment:Testing performed by : [facility], [address] [place] [phone] Neutrophil pct 79.1 % [facility] Comment: Interpretive Data Percent cell count reference ranges are not reported, since discordance with absolute values may lead to misinterpretation of CBC data. Current Interpretive Data was last revised on 2017. Testing performed by: [facility], [address] [place] [phone] Lymphocyte pct 5.5 % [facility] Comment: Interpretive Data Percent cell count reference ranges are not reported, since discordance with absolute values may lead to misinterpretation of CBC data. Current Interpretive Data was last revised on 2017. Testing performed by: [facility], [address] [place] [phone] Monocyte pct 11.7 % [facility] Comment: Interpretive Data Percent cell count reference ranges are not reported, since discordance with absolute values may lead to misinterpretation of CBC data. Current Interpretive Data was last revised on 2017. Testing performed by: [facility], [address] [place] [phone] Eosinophil pct 1.5 % [facility] Comment: Interpretive Data Percent cell count reference ranges are not reported, since discordance with absolute values may lead to misinterpretation of CBC data. Current Interpretive Data was last revised on 2017. Testing performed by: [facility], [address] [place] [phone] Basophil pct 2.2 % [facility] Comment: Interpretive Data Percent cell count reference ranges are not reported, since discordance with absolute values may lead to misinterpretation of CBC data. Current Interpretive Data was last revised on 2017. Testing performed by: [facility], [address] [place] [phone] Blood 05/20/2024 9:18 AM CDT 05/20/2024 9:25 AM CDT Bailee Mares MEAT CURER LAB BLOOD ORDERABLES Yulia l Result Performing Organization Address [facility] Co de Phone Number TA [facility] Department [place] [address] * (ABNORMAL) Immunoglobulin free light chains (05/20/2024 9:18 AM CDT) Pathologist [facility] [place]/Lambda ratio [facility]J 0.85 0.26 - 1.65 Comment: Interpretive Data The Binding Site FreeLite assay procedure was used. Results from different manufacturers or methods may not be comparable. Serial testing should be performed using the same methods and instrumentation. Current Interpretive Data was last revised on 2023. [place] free light chain [facility] 0.33 0.33 - 1.94 mg/dL [facility] Comment: Interpretive Data The Binding Site FreeLite assay procedure was used. Results from different manufacturers or methods may not be comparable. Serial testing should be performed using the same methods and instrumentation. Current Interpretive Data was last revised on 2023. Lambda free light chain [facility] 0.39(L) 0.57 - 2.63 mg/dL [facility] Comment: Interpretive Data The Binding Site FreeLite assay procedure was used. Results from different manufacturers or methods may not be comparable. Serial testing should be performed using the same methods and instrumentation. Current Interpretive Data was last revised on 2023. Blood 05/20/2024 9:18 AM CDT 05/20/2024 10:30 AM CDT Bailee Mares MEAT CURER LAB BLOOD ORDERABLES Yulia l Result Performing Organization Address City/[facility]/ZIP Co de Phone Number [facility] Department [place] [address] * (ABNORMAL) CBC with auto differential (05/20/2024 9:18 AM CDT) [facility] WBC 6.4 3.8 - 9.9 K/cumm Comment:Testing performed by : [facility], [address] [place] [address] Hgb 12.1 11.9 - 15.5 g/dL [facility] Comment:Testing performed by : [facility], [address] [place], [place] [phone] Hct 35.9 35.6 - 45.5 % [facility] Comment:Testing performed by : [facility], [address] [place], [place] [phone] Plt 230 150 - 400 K/cumm [facility] Comment:Testing performed by : [facility], [address] [place], [place] [phone] MPV 9.0 6.8 - 10.4 fL [facility] Comment:Testing performed by : [facility], [address] [place], [place] [phone] RBC 3.51(L) 3.90 - 5.20 M/cumm [facility] Comment:Testing performed by : [facility], [address] [place] [address] MCV 102.1(H) 81.3 - 96.4 fL [facility] Comment:Testing performed by : [facility], [address] [place] [address] MCH 34.3(H) 27.1 - 33.3 pg [facility] Comment:Testing performed by : [facility], [address] [place] [address] MCHC 33.6 32.3 - 35.7 g/dL [facility] Comment:Testing performed by : [facility], [address] [place] [address] RDW CV 14.6 11.1 - 14.9 % [facility] Comment:Testing performed by : [facility], [address] [place] [address] NRBC abs 0.00 0.00 - 0.01 K/cumm [facility] Comment:Testing performed by : [facility], [address] [place] [address] Blood 05/20/2024 9:18 AM CDT 05/20/2024 9:25 AM CDT Bailee Mares MEAT CURER LAB BLOOD ORDERABLES Yulia l Result Performing Organization Address City/[facility]/ZIP Co de Phone Number [facility] [place] [address] * (ABNORMAL) Protein electrophoresis with reflex, serum with interpretation (05/20/2024 9:18 AM CDT) Pathologist [facility] Protein, sr 6.2 6.2 - 8.2 g/dL Albumin 4.2 3.2 - 5.0 g/dL [facility] Alpha-1 globulin 0.3 0.2 - 0.4 g/dL [facility] Alpha-2 globulin 0.9 0.5 - 1.0 g/dL [facility] Beta-1 globulin 0.4 0.3 - 0.6 g/dL [facility] Beta-2 globulin 0.2 0.2 - 0.6 g/dL [facility] Gamma globulin 0.2(L) 0.5 - 1.7 g/dL [facility] SPEP interp Please see comment [facility] Comment: No apparent monoclonal peak Decreased gamma globulins Electrophoretic pattern appears similar to previous sample 04/23/2024 See immunotyping for further information Reviewed and signed by Vipul Stuart MD, PhD 05/21/2024 Blood 05/20/2024 9:18 AM CDT 05/20/2024 10:30 AM CDT Bailee Mares MEAT CURER LAB BLOOD ORDERABLES Yulia l Result Performing Organization Address [facility]/ZIP Co de Phone Number [facility] [place] [address] * Lactate dehydrogenase (LD) (05/20/2024 9:18 AM CDT) Pathologist [facility] Lactate dehydrogenase (LDH) 182 100 - 250 Units/L Blood 05/20/2024 9:18 AM CDT 05/20/2024 9:28 AM CDT Bailee Mares MEAT CURER LAB BLOOD ORDERABLES Yulia l Result Performing Organization Address [facility] Co de Phone Number [facility] [place] [address] * (ABNORMAL) IgA (05/20/2024 9:18 AM CDT) Immunoglobulin A <50(L) 70 - 400 mg/dL Blood 05/20/2024 9:18 AM CDT 05/20/2024 10:03 AM CDT Bailee Mares LAB BLOOD ORDERABLES Yulia l Result Performing Organization Address [facility] de Phone Number [facility] [place] [address] * (ABNORMAL) IgM (05/20/2024 9:18 AM CDT) Immunoglobulin M <25(L) 40 - 230 mg/dL Blood 05/20/2024 9:18 AM CDT 05/20/2024 10:03 AM CDT Bailee Mares LAB BLOOD ORDERABLES Yulia l Result Performing Organization Address [facility] de Phone Number [facility] [place] [address] * (ABNORMAL) IgG (05/20/2024 9:18 AM CDT) Immunoglobulin G <300(L) 700 - 1,600 mg/dL Blood 05/20/2024 9:18 AM CDT 05/20/2024 10:03 AM CDT Bailee Mares MEAT CURER LAB BLOOD ORDERABLES Yulia lobo Result [facility] Department [place] [address] * Comprehensive metabolic panel (05/20/2024 9:18 AM CDT) Sodium 142 135 - 145 mmol/L Potassium, pl 4.3 3.3 - 4.9 mmol/L [facility] Chloride 106 97 - 110 mmol/L [facility] CO2 26 22 - 32 mmol/L [facility] Anion gap 10 2 - 15 mmol/L [facility] BUN 16 6 - 25 mg/dL [facility] Creatinine 0.82 0.60 - 1.10 mg/dL [facility] Glucose 152 70 - 199 mg/dL [facility] Comment: Interpretive Data Fasting glucose >/= 126 [...] 2022. Calcium 9.3 8.5 - 10.3 mg/dL [facility] [facility] Bilirubin, total 0.3 0.1 - 1.2 mg/dL [facility] Protein, pl 6.5 6.5 - 8.5 g/dL [facility] Albumin 4.2 3.5 - 5.0 g/dL [facility] Alk phos 71 40 - 130 Units/L [facility] ALT 11 7 - 45 Units/L [facility] AST 19 10 - 45 Units/L [facility] Blood 05/20/2024 9:18 AM CDT 05/20/2024 9:28 AM CDT Bailee Mares NP LAB BLOOD ORDERABLES Yulia l Result TA [facility] [place] [address] * Immunotyping, serum with interpretation (04/22/2024 11:55 AM AWARD CLERK) Immunosubtraction Please see comment Comment: NO PARAPROTEIN DETECTED Reviewed and signed by Brayan Ireland MD 04/23/2024 Blood 04/22/2024 11:5 5 AM AWARD CLERK 04/22/2024 1:43 PM AWARD CLERK Suman Canales MD LAB BLOOD ORDER CRISTEL Final Result Performing Organization Address [facility] Co de Phone Number TA [facility] [place] [address] * eGFR (04/22/2024 11:55 AM AWARD CLERK) eGFR 65 >=60 mL/min/1. 73 m2 Comment: [...] reviewed 2020. Blood 04/22/2024 11:5 5 AM AWARD CLERK 04/22/2024 12:11 PM AWARD CLERK us Suman Canales MD LAB BLOOD ORDER CRISTEL Final Result TA [facility] Department [place] [address] * (ABNORMAL) Differential, auto (04/22/2024 11:55 AM AWARD CLERK) Neutrophil abs 4.4 1.5 - 6.5 K/cumm Comment:Testing performed by : [facility], [address] [place] [phone] Lymphocyte abs 0.5(L) 0.8 - 3.3 K/cumm [facility] Comment:Testing performed by : [facility], [address] [place] [phone] Monocyte abs 0.5 0.2 - 0.8 K/cumm [facility]J Comment:Testing performed by : [facility], [address] [place] [phone] Eosinophil abs 0.1 0.0 - 0.5 K/cumm [facility] Comment:Testing performed by : [facility], [address] [place] [phone] Basophil abs 0.0 0.0 - 0.1 K/cumm [facility] Comment:Testing performed by : [facility], [address] [place] [phone] Neutrophil pct 79.7 % [facility] Comment: Interpretive Data Percent cell count reference ranges are not reported, since discordance with absolute values may lead to misinterpretation of CBC data. Current Interpretive Data was last revised on 2017. Testing performed by: [facility], [address] [place] [phone] Lymphocyte pct 8.2 % [facility] Comment: Interpretive Data Percent cell count reference ranges are not reported, since discordance with absolute values may lead to misinterpretation of CBC data. Current Interpretive Data was last revised on 2017. Testing performed by: [facility], [address] [place] [address] [place] [phone] Monocyte pct 9.5 % TA [facility] Comment: Interpretive Data Percent cell count reference ranges are not reported, since discordance with absolute values may lead to misinterpretation of CBC data. Current Interpretive Data was last revised on 2017. Testing performed by: [facility], [address] [place] [phone] Eosinophil pct 2.3 % TA [facility] Comment: Interpretive Data Percent cell count reference ranges are not reported, since discordance with absolute values may lead to misinterpretation of CBC data. Current Interpretive Data was last revised on 2017. Testing performed by: [facility], [address] [place] [phone] Basophil pct 0.3 % TA [facility] Comment: Interpretive Data Percent cell count reference ranges are not reported, since discordance with absolute values may lead to misinterpretation of CBC data. Current Interpretive Data was last revised on 2017. Testing performed by: [facility], [address] [place] [phone] Blood 04/22/2024 11:5 5 AM AWARD CLERK 04/22/2024 12:11 PM AWARD CLERK Suman Canales MD LAB BLOOD ORDER CRISTEL Final Result [facility] Department [place] [address] * (ABNORMAL) Immunoglobulin free light chains (04/22/2024 11:55 AM AWARD CLERK) [place]/Lambda ratio [facility] 1.08 0.26 - 1.65 Comment: Interpretive Data The Binding Site FreeLite assay procedure was used. Results from different manufacturers or methods may not be comparable. Serial testing should be performed using the same methods and instrumentation. Current Interpretive Data was last revised on 2023. [place] free light chain [facility] 0.39 0.33 - 1.94 mg/dL TA [facility] Comment: Interpretive Data The Binding Site FreeLite assay procedure was used. Results from different manufacturers or methods may not be comparable. Serial testing should be performed using the same methods and instrumentation. Current Interpretive Data was last revised on 2023. Lambda free light chain [facility] 0.36(L) 0.57 - 2.63 mg/dL TA [facility] Comment: Interpretive Data The Binding Site FreeLite assay procedure was used. Results from different manufacturers or methods may not be comparable. Serial testing should be performed using the same methods and instrumentation. Current Interpretive Data was last revised on 2023. Blood 04/22/2024 11:5 5 AM AWARD CLERK 04/22/2024 1:42 PM AWARD CLERK Suman Canales MD LAB BLOOD ORDER RCISTEL Final Result TA [facility] Department [place] [address] * (ABNORMAL) CBC with auto differential (04/22/2024 11:55 AM AWARD CLERK) WBC 5.6 3.8 - 9.9 K/cumm Comment:Testing performed by : [facility], [address] [place] [address] Hgb 12.2 11.9 - 15.5 g/dL TA [facility] Comment:Testing performed by : [facility], [address] [place] [address] Hct 35.8 35.6 - 45.5 % TA [facility] Comment:Testing performed by : [facility], [address] [place] [address] Plt 250 150 - 400 K/cumm TA [facility] Comment:Testing performed by : [facility], [address] [place] [address] MPV 9.3 6.8 - 10.4 fL TA [facility] Comment:Testing performed by : [facility], [address] [place] [address] RBC 3.50(L) 3.90 - 5.20 M/cumm TA [facility] Comment:Testing performed by : [facility], [address] [place], [place] [phone] MCV 102.2(H) 81.3 - 96.4 fL TA [facility] Comment:Testing performed by : [facility], [address] [place], [place] [phone] MCH 34.7(H) 27.1 - 33.3 pg TA [facility] Comment:Testing performed by : [facility], [address] [place], [place] [phone] MCHC 34.0 32.3 - 35.7 g/dL TA [facility] Comment:Testing performed by : [facility], [address] [place], [place] [phone] RDW CV 14.5 11.1 - 14.9 % TA [facility] Comment:Testing performed by : [facility], [address] [place], [place] [phone] NRBC abs 0.00 0.00 - 0.01 K/cumm TA [facility] Comment:Testing performed by : [facility], [address] [place], [place] [phone] Blood 04/22/2024 11:5 5 AM AWARD CLERK 04/22/2024 12:11 PM AWARD CLERK Suman Canales MD LAB BLOOD ORDER CRISTEL Final Result TA [facility] Department [place] [address] * (ABNORMAL) Protein electrophoresis with reflex, serum with interpretation (04/22/2024 11:55 AM AWARD CLERK) Protein, sr 6.0(L) 6.2 - 8.2 g/dL Albumin 4.3 3.2 - 5.0 g/dL TA [facility] Alpha-1 globulin 0.2 0.2 - 0.4 g/dL TA [facility] Alpha-2 globulin 0.7 0.5 - 1.0 g/dL [facility] Beta-1 globulin 0.4 0.3 - 0.6 g/dL [facility] Beta-2 globulin 0.2 0.2 - 0.6 g/dL [facility] Gamma globulin 0.2(L) 0.5 - 1.7 g/dL [facility] SPEP interp Please see comment [facility] Comment: Possible abnormal restricted peak in gamma region Decreased gamma globulins Electrophoretic pattern appears similar to previous sample 02/19/24 See immunotyping for further information Reviewed and signed by Brayan Ireland MD 04/23/2024 Blood 04/22/2024 11:5 5 AM AWARD CLERK 04/22/2024 1:43 PM AWARD CLERK Suman Canales MD LAB BLOOD ORDER CRISTEL Final Result Performing Organization Address [facility] de Phone Number [facility] Department [place] [address] * Lactate dehydrogenase (LD) (04/22/2024 11:55 AM AWARD CLERK) Lactate dehydrogenase (LDH) 207 100 - 250 Units/L Blood 04/22/2024 11:5 5 AM AWARD CLERK 04/22/2024 12:11 PM AWARD CLERK Suman Canales MD LAB BLOOD ORDER CRISTEL Final Result Performing Organization Address [facility] de Phone Number [facility] Department [place] [address] * (ABNORMAL) IgA (04/22/2024 11:55 AM AWARD CLERK) Immunoglobulin A <50(L) 70 - 400 mg/dL Blood 04/22/2024 11:5 5 AM AWARD CLERK 04/22/2024 12:30 PM AWARD CLERK Suman Canales MD LAB BLOOD ORDER CRISTEL Final Result Performing Organization Address [facility] Co de Phone Number [facility] Department [place] [address] * (ABNORMAL) IgM (04/22/2024 11:55 AM AWARD CLERK) [facility] Immunoglobulin M <25(L) 40 - 230 mg/dL Blood 04/22/2024 11:5 5 AM AWARD CLERK 04/22/2024 12:30 PM AWARD CLERK Suman Canales MD LAB BLOOD ORDER CRISTEL Final Result Performing Organization Address [facility] Co de Phone Number [facility] [place] [address] * (ABNORMAL) IgG (04/22/2024 11:55 AM AWARD CLERK) [facility] Immunoglobulin G <300(L) 700 - 1,600 mg/dL Blood 04/22/2024 11:5 5 AM AWARD CLERK 04/22/2024 12:30 PM AWARD CLERK Suman Canales MD LAB BLOOD ORDER CRISTEL Final Result Performing Organization Address [facility] de Phone Number [facility] Department [place] [address] * (ABNORMAL) Comprehensive metabolic panel (04/22/2024 11:55 AM AWARD CLERK) [facility] Sodium 141 135 - 145 mmol/L Potassium, pl 4.8 3.3 - 4.9 mmol/L [facility] Chloride 103 97 - 110 mmol/L [facility] CO2 30 22 - 32 mmol/L [facility] Anion gap 8 2 - 15 mmol/L [facility] BUN 23 6 - 25 mg/dL [facility] Creatinine 0.89 0.60 - 1.10 mg/dL [facility] Glucose 91 70 - 199 mg/dL [facility] Comment: Interpretive Data Fasting glucose >/= 126 [...] 2022. Calcium 10.1 8.5 - 10.3 mg/dL [facility] Bilirubin, total 0.2 0.1 - 1.2 mg/dL [facility] Protein, pl 6.3(L) 6.5 - 8.5 g/dL [facility] Albumin 4.3 3.5 - 5.0 g/dL [facility] Alk phos 63 40 - 130 Units/L [facility] ALT 12 7 - 45 Units/L [facility] AST 23 10 - 45 Units/L [facility] Blood 04/22/2024 11:5 5 AM AWARD CLERK 04/22/2024 12:11 PM AWARD CLERK Suman Canales MD LAB BLOOD ORDER CRISTEL Final Result [facility] Department [place] [address] from Last 3 Months Insurance MEDICARE BLUE [employer] MEDICARE SUPPLEMENT MEDICARE [facility] MEDICARE MEDICARE [facility] MEDICARE [facility] MEDICARE SUPPLEMENT Advance Directives For more information, please contact: [phone] * Full Code (Latest Code Status on [...] 11:50 PM 01/19/2023 9:49 PM Care Teams Ramp Service Employee Relationship Specialty Start Date End Date Low Alvarez MD [address] [place] [address] PCP - General Internal Medicine 10/22/19 Trae Thompson MD Surgeon Colon and Rectal Surgery 06/25/19 Onofre James MD PhD Consulting Physician Gastroenterology 06/25/19 Brown Handley MD [address] [place] [address] Graphic Design Professor Gastroenterology 12/10/19 Juan Diego Etienne MD [address] [place] [address] Referring Physician Cardiology 01/04/22
--- OUTSIDE RECORDS SUMMARY | 2024-07-03 17:29 | XMS_ITS | Clinical Summary ---
Author Organization [facility] [address] [place] Address [address] [place] [address] Phone Care Team Providers Care Pump Installer Name Role Phone Low Alvarez MD Primary Care Provider + Allergies Active Allergy Reactions Criticality Noted Date Comments Azithromycin Hives High 06/30/2013 Baclofen Hives High 10/14/2008 Cefepime Other (See Comments) 10/14/2008 Ciprofloxacin Hives High 10/14/2008 Coconut Hives High 10/01/2015 Morphine Itching Low 10/01/2015 Penicillins Hives High 10/29/2009 Propoxyphene Hcl Hives High 06/30/2013 Propoxyphene N-Acetaminophen Other (See Comments) 10/14/2008 Medications cetirizine (ZyrTEC) 10 mg tablet Take 10 mg by mouth daily . Active Cholecalciferol, Vitamin D3, 50 mcg (2,000 unit) CapsuleIndicatio ns:Malignant neoplasm of breast (female), unspecified site Take 2,000 Units by mouth. Active cyanocobalamin (VITAMIN B-12) 500 mcg tabletIndication s:Malignant neoplasm of breast (female), unspecified site Take 500 mcg by mouth daily. Active montelukast (SINGULAIR) 10 mg tablet TK 1 T PO QD IN THE HUBERT 5 7 Active albuterol sulfate 90 mcg/Actuation inhaler Take 2 Puffs by inhalation every 6 hours as needed for Shortness of Breath. Active gabapentin (NEURONTIN) 300 mg capsule 0 Active pantoprazole (PROTONIX) 40 mg Tablet, Delayed Release (E.C.) TK 1 T PO QAM 0 Active lidocaine (LIDODERM) 5 % Adhesive Patch, Medicated Apply 1 Patch to skin as directed. Active magnesium oxide (MAG-OX) 400 mg (241.3 mg magnesium) tablet Take 400 mg by mouth. Active multivitamins-mi nerals-lutein (Multivitamin 50 Plus) Tablet Take 1 Tablet by mouth. Active nortriptyline (PAMELOR) 10 mg capsule TAKE 1 CAPSULE(10 MG) BY MOUTH EVERY NIGHT 1 Active vitamin B complex Capsule Take 1 Capsule by mouth. Active clopidogreL (PLAVIX) 75 mg Tablet 1 Active aspirin 81 mg Capsule 1 Active sertraline (ZOLOFT) 50 mg tablet Take 50 mg by mouth daily. Pt is taking 25 mg daily Active fluticasone furoate-vilanter oL (Breo Ellipta) 100-25 mcg/dose Disk with Device Take 1 Puff by inhalation daily. Active exemestane (AROMASIN) 25 mg tablet TAKE 1 TABLET BY MOUTH DAILY AFTER BREAKFAST 90 Tablet 3 2 Active Active Problems Patient Care Coordination No te Formatting of this note migh t be different from the original. Primary Care: Low Alvarez MD Referring Provider: No referring provider defined for this encounter. Other: Dr Keeley Cotton Primary Care: Low Alvarez MD Referring Provider: Low Alvarez MD [address] [place] [address] Other: Problem Noted Date Diagnosed Date Mild intermittent asthma with acute exacerbation 07/14/2016 Lump of right breast 10/11/2015 Bilateral malignant neoplasm involving both nipple and areola in female 10/15/2008 Cancer Staging:Clinical stage from 11/28/2000:Stage I(T1b, N0, M0, Free text: 2 nodes ihc +) - Unsigned Pathologic: Unsigned Overview (02/04/2016): Images from the original note were not included. 2001,R breast,T1BN0([facility] involved 2/3), ER+,NH+,Her2 neg AC x 3, Thiotepa/Novantrone x 1 RT,Tamoxifen tried, couldn't tolerate STAGE: TIB Nmi1,stage *IB New primary right breast: PATHOLOGY: 10/11/15 11/09/15 right TM/SLN; left TM Breast, right, lumpectomy: -Invasive lobular carcinoma 5.5 cm + 5 cm, ER(+) NH(+) Her 2 (-) Ki-67 37% // LN [...] HER-2/brian negative and intermediate grade with a Comstock score 5 out of 9. Imaging performed [...] IIB [] III [] IV ER: Positive NH: Positive [id number]: Negative Surgery: [x] Yes [] No Surgery date: 11/09/2015 Surgical procedures/location/findings: Bilateral mastectomies with sentinel lymph node biopsy on the right. Final pathology on the right breast demonstrated invasive lobular carcinoma measuring greater than 5 cm, intermediate grade with a Comstock score of 6 out of 9, margins were negative. One sentinel lymph node was removed and tested positive for small amount of isolated malignant cells. Final pathology on the left breast showed that there were 2 foci of invasive lobular carcinoma measuring up to 3.5mm which were intermediate grade with a Charlene score of [...] diseases and does not alter medical intervention. [employer] has a variant classification program which performs [...] other tests as indicated on each visit SOCIAL SCIENCES INSTRUCTOR Continue your yearly visit. *Physical exam and other tests (Pap test) as indicated on each visit. Please continue to see your primary care physician/SOCIAL SCIENCES INSTRUCTOR for all general health care recommended for a female your age. Possible late and/or predatory animal exterminator effects that someone with this type of [...] scheduled for 02/08/2016 at 11:00 at the [facility] 2) Follow up with Dr. Cotton scheduled [...] libido- physical exercise recommended. Can refer to [facility] program for counseling and possible acupuncture. 6) [...] Received flu shot 13) [employer] at local [facility] REFERRALS [] Star [] [facility] Integrative Therapy [] [facility] Pastoral Services [employer] at the [facility] [] Other (Specify): ADDITIONAL RESOURCES Patients may have many questions and concerns after their cancer treatment ends. A list of local resources as provided below to assist you. [facility] cancer information center: [place] [employer] (ACS): www.acs.org National Cancer [place] (NCI): www.cancer.gov [place] Society of clinical oncology (ASCO): www.cancer.net Komen: www.komen.org [employer]: www.BeestartrongAdvanced Patient Care Radiation therapy: www.rtanswers.org Patient signature: Eva/SHIP PILOT/RN signature: Date delivered on: 02/04/2016 60 minutes of time were spent with the patient and over 50% of time was spent in counseling, discussing her issues, chief complaints, diet, exercise, prevention, supplements, etc. or in the coordination of care. Lactic acid acidosis Dyspnea Diverticulosis of large intestine without hemorr inga Anxiety Immunizations Immunization Administration Dates Next Due Influenza Seasonal Unspecified Formulation IM Influenza Vaccine Split 3+ Yrs IM 11/28/2011 Influenza Vaccine Split 3+ Yrs PF IM 12/07/2015 Influenza Vaccine Tri Split 5+ Im 01/16/2017 PREVNAR (PCV13) pneumococcal 13-valent conjugate Vaccine 02/26/2015 Family History Medical History Relation Name Comments Prostate Cancer Father 60s Hypertension Mother Breast Cancer Neg Hx Ovarian Cancer Neg Hx Uterine Cancer Neg Hx Relation Name Status Comments Father Mother Social History Tobacco Use Types Packs/Day Years Used Date Smoking Tobacco: Never Smokeless Tobacco: Never Tobacco Cessation:Counseling Given: No Alcohol Use Standard Drinks/Week Comments Yes 0 (1 standard drink = 0.6 oz pur e alcohol) rare Comments No Sex and Gender Information Value Date Recorded Sex Assigned at Not on file Legal Sex Female 5:42 AM IRR[employer]ATOR VAL[employer]IPE Gender Identity Not on file Sexual Orientation Not on file Last Filed Vital Signs Vital Sign Reading Time Taken Comments Blood Pressure 110/64 07/12/2021 10:39 AM CDT Pulse 77 07/12/2021 10:39 AM CDT Temperature 36.6 C (97.8 F) 07/12/2021 10:39 AM CDT Respiratory Rate 16 07/12/2021 10:39 AM CDT Oxygen Saturation 96% 07/12/2021 10:39 AM CDT Inhaled Oxygen Concentration - - Weight 62.5 kg (137 lb 12 oz) 07/12/2021 10:39 A M CDT Height 154.9 cm (5' 1 ) 07/12/2021 10:39 AM CDT Body Mass Index 26.03 07/12/2021 10:39 AM CDT Plan of Treatment Health Maintenance Due Date Last Done Comments DTAP/TDAP/TD VACCINES (1 - Tdap) 1960 ZOSTER VACCINE (1 of 2) 08/28/1991 OSTEOPOROSIS SCREENING 10/15/2013 10/15/2008 RSV VACCINE (60+ or ) (1 - 1-dose 75+ series) 2016 PNEUMOCOCCAL VACCINE 50+ YEA RS (2 of 2 - PPSV23) 03/21/2018 01/24/2018, 02/26/2015 INFLUENZA VACCINE (#1) 2023 1, 12/09/2019, 01/16/2017, Additional history exists Flex Sig/CT Colonography Q 5 years Discontinued 07/21/2009 COLORECTAL SCREENING Discontinued 12/14/2020, 12/07/2014, 07/21/2009 Colorectal Cancer Screening Discontinued FIT-DNA Q 3 years Discontinued FIT/FOBT Q 1 year Discontinued Procedures Procedure Name Priority Date/Time Associated Diagnosis Comments ENDOSCOPY, COLON, DIAGNOSTIC Routine 12/07/2014 ENDOSCOPY, SIGMOID Routine 07/21/2009 XR DEXA BONE DENSITY 2 SITES Routine 10/15/2008 from Last 3 Months or Most Recently Relevant to Health Maintenance Results * ENDOSCOPY, COLON, DIAGNOSTIC (12/07/2014) Onofre James MD GI PROCEDURE ORDERABLES Final Result [facility] * ENDOSCOPY, SIGMOID (07/21/2009) Abstract Provider GI PROCEDURE ORDERABLES Final Result EXTERNAL LAB * XR DEXA BONE DENSITY 2 SITES (10/15/2008) T-SCORE FEMUR >=-0.99 LIFE SCIENCES MANAGER AL RADIOLOGY T-SCORE SPINE >=-0.99 LIFE SCIENCES MANAGER AL RADIOLOGY T-SCORE WRIST >=-0.99 LIFE SCIENCES MANAGER AL RADIOLOGY T-SCORE HEEL >=-0.99 EXTERNA L RADIOLOGY Anatomical Region Laterality Modality Other Leticia Segundo MD DIAGNOSTIC IMAGING ORDERABLES Final Result from Last 3 Months or Most Recently Relevant to Health Maintenance Insurance MEDICARE PART A AND B Agent Partner ACCESS/TRUE [employer] PPO Advance Directives For more information, please contact: [phone] * Full Code (Latest Code Status on File) Date Activated Date Inactivated Comments 07/14/2016 2:56 AM 07/15/2016 9:10 PM * Full Code Date Activated Date Inactivated Comments 11/09/2015 10:43 AM 11/10/2015 11:24 AM * Full Code Date Activated Date Inactivated Comments 11/09/2015 7:55 AM 11/09/2015 10:43 AM * Full Code Date Activated Date Inactivated Comments 11/09/2015 6:51 AM 11/09/2015 7:55 AM * Full Code Date Activated Date Inactivated Comments 10/11/2015 10:03 AM 10/11/2015 4:11 PM Care Teams Pump Installer Relationship Specialty Start Date End Date Low Alvarez MD [address] [place] [address] PCP - General 10/15/08
--- OUTSIDE RECORDS SUMMARY | 2024-07-03 17:29 | XMS_ITS | Clinical Summary ---
Author Organization [facility] Address [address] [place] [address] Care Team Providers Care Shoe Polisher Name Role Phone Low Alvarez MD Primary Care Provider [phone] Source Comments [facility] Affiliates and Associated Physician Practices is amultiple site organization consisting of ambulatory clinics and hospital sitesin [place], [place], [place]. This disclosure is being madepursuant to the Care Everywhere program and may not contain all information available regarding this patient. Last updated 17.[facility] [employer] Allergies Active Allergy Reactions Criticality Noted Date Comments Adhesive Sensitivity Rash 03/24/2009 Baclofen 03/24/2009 Ciprofloxacin 03/24/2009 Propoxyphene N-Apap 03/24/2009 Morphine Itching 03/24/2009 Penicillins 03/24/2009 Azithromycin Rash,Itching 03/24/2009 Medications * Be aware that medications may not be up to date on this document. Alwaysverify current medications with the patient. cetirizine (ZYRTEC) 10 MG tablet Take 10 mg by mouth daily. Active potassium chloride (KLOR-CON 10) 10 MEQ tablet Take 10 mEq by mouth daily. Active SINGULAIR PO Take 10 mg by mouth. [place] [address] Units by mouth every 7 days. Active OMEPRAZOLE PO Take 20 mg by mouth. Active EXTRA STRENGTH ACETAMINOPHEN PO Take 500 mg by mouth as needed. Active TUMS PO Take by mouth as needed. Active cyanocobalamin (vitamin B-12) injection Inject into muscle every 30 days. Active ADVAIR DISKUS IN Inhale by mouth as needed. Active ALBUTEROL IN Inhale by mouth as needed. Active vitamin D 1000 UNIT capsule Take 2000 Units by mouth daily. Active ALIGN PO Take 1 Cap by mouth daily. Active Active Problems Problem Noted Date Diagnosed Date Abdominal pain, generalized 07/21/2009 Family History Medical History Relation Name Comments Cancer Father Prostate cancer Asthma Mother Relation Name Status Comments Father Mother Social History Tobacco Use Types Packs/Day Years Used Date Smoking Tobacco: Never Alcohol Use Standard Drinks/Week Comments Yes 0 (1 standard drink = 0.6 oz pur e alcohol) social drinker Comments Unknown Sex and Gender Information Value Date Recorded Sex Assigned at Not on file Legal Sex Female 6:12 AM DYE OPERATOR Gender Identity Not on file Sexual Orientation Not on file Last Filed Vital Signs Vital Sign Reading Time Taken Comments Blood Pressure 142/74 01/20/2013 2:03 PM DYE OPERATOR Pulse 98 01/20/2013 2:03 PM DYE OPERATOR Temperature 36.6 C (97.9 F) 01/20/2013 2:03 PM DYE OPERATOR Respiratory Rate 20 01/20/2013 2:03 PM DYE OPERATOR Oxygen Saturation 98% 07/21/2009 12:30 PM CDT Inhaled Oxygen Concentration - - Weight 66.9 kg (147 lb 6.4 oz) 01/20/2013 2:03 P M DYE OPERATOR Height 152.4 cm (5') 01/20/2013 2:03 PM DYE OPERATOR Body Mass Index 28.79 01/20/2013 2:03 PM DYE OPERATOR Plan of Treatment Health Maintenance Due Date Last Done Comments BONE DENSITY TESTING 1940 DTAP/TDAP/TD VACCINES (1 - Tdap) 1960 PNEUMOCOCCAL VACCINE 50+ (1 of 1 - PCV) 08/28/1991 ZOSTER VACCINE (1 of 2) 08/28/1991 Respiratory Syncytial Virus (RSV) Vaccine Pt: or over 60 yrs (1 - 1-dose 75+ series) 2016 COVID-19 VACCINE ( - 2023-2 5 season) 2023 DEPRESSION SCREENING 02/27/2024 INFLUENZA VACCINE (Season Ended) 2024 HEPATITIS B VACCINE Aged Out No longe r eligible based on patient's age to complete this topic HIB VACCINE Aged Out No longer eligi ble based on patient's age to complete this topic HPV VACCINE Aged Out No longer eligi ble based on patient's age to complete this topic MENINGOCOCCAL (Group B) VACC INE SHARED DECISION-MAKING Aged Out No longer eligibl e based on patient's age to complete this topic MENINGOCOCCAL GROUPS A/C/Y/W VACCINE Aged Out No longer eligible b ased on patient's age to complete this topic Care Teams Shoe Polisher Relationship Specialty Start Date End Date Low Alvarez MD [address] [place] [address] PCP - General 07/21/09
--- OUTSIDE RECORDS SUMMARY | 2024-07-03 17:29 | XMS_ITS ---
Author Organization [facility] Address [address] [id number] Care Team Providers Care Jammer Hooker Name Role Phone Low Alvarez Unavailable Unavailable LYNN LUIS Unavailable [phone] REASON FOR VISIT *General care Encounters Encounter Location Date Provider Diagnosis [facility] [address] [place] [id number] 08/16/2023 LYNN LUIS Fungal infection of nail B35.1 ; Pain in right toe(s) M79.674 ; Pain in left toe(s) M79.675 ; Unspecified atherosclerosis of [place] arteries of extremities, bilateral legs I70.203 and Acquired keratoderma L85.1 Assessments Encounter Date Diagnosis (ICD Code) Assessment Notes Treatment Notes Treatment Clinical Notes Section Notes 08/16/2023 Fungal infection of nail (ICD-10 - B35.1) Nails 1-5 Bilateral were debrided extensively with nail nippers and emery board, reducing length and girth to pink healthy tissue with any subungual debris and necrotic tissue removed 08/16/2023 Pain in right toe(s) (ICD-10 - M79.674) 08/16/2023 Pain in left toe(s) (ICD-10 - M79.675) 08/16/2023 Unspecified atherosclerosis of [place] arteries of extremities, 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) 08/16/2023 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) Plan Of Treatment Treatment Notes Assessment Notes Fungal infection of nail Nails 1-5 Bilat eral were debrided extensively with nail nippers and emery board, reducing length and girth to pink healthy tissue with any subungual debris and necrotic tissue removed Next Appt Details Follow Up: 9 weeks, Reason: Progress Notes * OBEY MENARDADOB:1940 (83 yo F)Acc No.[id number]:08/16/2023 Patient: TASNEEM NEWMAN Provider: Jalyn Luis DPM :1940 A ge:82 Y S ex:Female Date:08/16/2023 Address:[address] [place] [address], [place] [address] Subjective: * Chief Complaints: * * General care * HPI: H PI: General care P atient presents to the office for at risk foot care. Patient states that their nails are thickened, elongated and painful. Patient states that it is aggravated by shoe gear. Onset is gradual. Patient denies being diabetic. Patient denies taking prescription blood thinners but does take a daily aspirin. Date last seen by Dr. Alvarez was 07/2023. Initials sea. * ROS: G eneral / Constitutional: Patient denies c hange in appetite, fatigue, chills, fever.? C ardiovascular: Chest pain d enies. N eurologic: Loss of use of extremity d enies. * Medical History: * Surgical History: * Hospitalization/Major Diagno stic Procedure: * Medications: N one Objective: * Vitals: * Examination: P hysical Examination: Gen: T he patient is awake, alert, well developed, well groomed and well nourished. They are in no apparent distress. . Musc: F oot structure is normal bilateral. Muscle strength is 5/5 to all joints bilaterally. There is no pain on palpation. . Derm: T here is absent hair growth on bilateral feet. There are pigmentary changes of bilateral foot. The skin color is red. The skin texture is thin and shiny. Distal cooling noted in bilateral feet. Nails are thick, discolored, and dystrophic with subungual debris. They are painful to palpation. . Neuro: G rossly intact to light touch bilateral . Vasc: P osterior tibialis pulse 0/4 bilaterally. Dorsalis pedis pulse 0/4 bilaterally. No edema noted. Capillary fill time > 3 seconds to all digits. . Assessment: * Assessment: 1. F ungal infection of nail - B35.1 (Primary) 2 . P ain in right toe(s) - M79.674 3 . P ain in left toe(s) - M79.675 4 . U nspecified atherosclerosis of [place] arteries of extremities, bilateral legs - I70.203 5 . A cquired keratoderma - L85.1 Plan: * Treatment: * Procedure Codes: 1 1056 TRIM SKIN LESIONS, 2 TO 4, Modifiers: Q8 50343 DEBRIDE NAIL, 6 OR MORE, Modifiers: 59 , Q8 * Follow Up: 9 weeks * Billing Information: * Visit Code: * Procedure Codes: 22106 TRIM SKIN LESIONS, 2 TO 4. Modifiers: Q8 68680 DEBRIDE NAIL, 6 OR MORE. Modifiers: 59, Q8 * Sign off status: Completed true * Provider: Jalyn Luis DPM Date: 0 08/16/2023 Generated for Ade royal/Yu/Shar on: 0 07/03/2024 05:29 PM CDT History and Physical Notes * HPI (History of Present Illness) Category Sub-Category Detail Notes Category Not es HPI General care Patient presents to the office for at risk foot care. Patient states that their nails are thickened, elongated and painful. Patient states that it is aggravated by shoe gear. Onset is gradual. Patient denies being diabetic. Patient denies taking prescription blood thinners but does take a daily aspirin. Date last seen by Dr. Alvarez was 07/2023. Initials sea Examination Category Sub-Category Detail Notes Category Not es Physical Examination Gen: The patient is awake, alert, well developed, well groomed and well nourished. They are in no apparent distress. Vasc: Posterior tibialis p ulse 0/4 bilaterally. Dorsalis pedis pulse 0/4 bilaterally. No edema noted. Capillary fill time > 3 seconds to all digits. Neuro: Grossly intact to li ght touch bilateral Musc: Foot structure is no rmal bilateral. Muscle strength is 5/5 to all joints bilaterally. There is no pain on palpation. Derm: There is absent hair growth on bilateral feet. There are pigmentary changes of bilateral foot. The skin color is red. The skin texture is thin and shiny. Distal cooling noted in bilateral feet. Nails are thick, discolored, and dystrophic with subungual debris. They are painful to palpation.
--- OUTSIDE RECORDS SUMMARY | 2024-07-03 17:29 | XMS_ITS ---
Author Organization [facility] Address [address] [place], [place] [id number] Care Team Providers Care Sales Marketing Manager Name Role Phone JuliusjuliusLow dietz Unavailable Unavailable LYNN LUIS Unavailable [phone] REASON FOR VISIT *Callus Care Social History Tobacco Use: Social History Observation Description Date Details (start date - stop date) Never Smoker NA - NA Tobacco Control (Standard) Question Answer Notes Tobacco use: Nonsmoker Vital Signs Height 60 in 06/08/2023 Weight 110 lbs 06/08/2023 BMI 21.48 kg/m2 06/08/2023 Height-cm 152.4 cm 06/08/2023 Weight-kg 49.9 kg 06/08/2023 Encounters Encounter Location Date Provider Diagnosis [facility] [address] [place] [phone] 06/08/2023 LYNN LUIS Fungal infection of nail B35.1 ; Acquired keratoderma L85.1 and Pain in right toe(s) M79.674 Assessments Encounter Date Diagnosis (ICD Code) Assessment Notes Treatment Notes Treatment Clinical Notes Section Notes 06/08/2023 Fungal infection of nail (ICD-10 - B35.1) Nails 1-5 Bilateral were debrided extensively with nail nippers and emery board, reducing length and girth to pink healthy tissue with any subungual debris and necrotic tissue removed 06/08/2023 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) 06/08/2023 Pain in right toe(s) (ICD-10 - M79.674) Plan Of Treatment Treatment Notes Assessment Notes Fungal infection of nail Nails 1-5 Bilat eral were debrided extensively with nail nippers and emery board, reducing length and girth to pink healthy tissue with any subungual debris and necrotic tissue removed Next Appt Details Follow Up: 9 weeks, Reason: Progress Notes * OEBY MENARDADOB:1940 (83 yo F)Acc No.[id number]:06/08/2023 Progress Notes Patient: TASNEEM NEWMAN Provider: Jalyn Luis DPM :1940 A ge:82 Y S ex:Female Date:06/08/2023 Address:[address] [place] [address], [place] [phone] Subjective: * Chief Complaints: * * Callus Care * HPI: H PI: New Complaint P atient presents for a new patient consultation. Patient complains of an issue to her right great toe. She states she has a callus that has bothered her on and off for years. She states she is not diabetic, but does take a daily aspirin. Patient denies any injury. MA: sea. * ROS: G eneral / Constitutional: Patient denies c hange in appetite, fatigue, chills, fever.? C ardiovascular: Chest pain d enies. N eurologic: Loss of use of extremity d enies. * Medical History: * Surgical History: * Hospitalization/Major Diagno stic Procedure: * Social History: T obacco Use: T obacco Control (Standard) T obacco use: N onsmoker * Medications: N one Objective: * Vitals: W t: 110 lbs, Wt-k.9 kg, Ht: 60 in, Ht-cm: 152.4 cm, BMI: 21.48 Index, Body Surface Area: 1.45. * Examination: P hysical Examination: Gen: T [...] of nail - B35.1 (Primary) 2 . A cquired keratoderma - L85.1 3 . P ain in right toe(s) - M79.674 Plan: * Treatment: * Immunizations: Immunization record has been reviewed and updated. * Procedure Codes: * Follow Up: 9 weeks * Billing Information: * Visit Code: 85730 Office Visit, New Pt., Level 3. * Procedure Codes: * Sign off status: Completed true * Provider: Jalyn Luis DPM Date: 0 06/08/2023 Generated for Ade royal/Yu/Shar on: 0 07/03/2024 05:29 PM CDT History and Physical Notes * HPI (History of Present Illness) Category Sub-Category Detail Notes Category Not es HPI New Complaint Patient presents for a new patient consultation. Patient complains of an issue to her right great toe. She states she has a callus that has bothered her on and off for years. She states she is not diabetic, but does take a daily aspirin. Patient denies any injury. MA: sea Examination Category Sub-Category Detail Notes Category [...]
--- OUTSIDE RECORDS SUMMARY | 2024-07-03 17:29 | XMS_ITS ---
Author Organization [facility] Address [address] [place] [address] Phone Care Team Providers Care Oracle Distribution Consultant Name Role Phone Low Alvarez MD Primary Care Provider + Active Problems Patient Care Coordination No te Formatting of this note migh t be different from the original. Primary Care: Low Alvaerz MD Referring Provider: No referring provider defined for this encounter. 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 2000,R breast,T1BN0([facility] involved 2/3), ER+,TN+,Her2 neg AC x 3, Thiotepa/Novantrone x 1 RT,Tamoxifen tried, couldn't tolerate STAGE: TIB Nmi1,stage *IB New primary right breast: PATHOLOGY: 10/11/15 11/09/15 right TM/SLN; left TM Breast, right, lumpectomy: -Invasive lobular carcinoma 5.5 cm + 5 cm, ER(+) TN(+) Her 2 (-) Ki-67 37% 02/26/ LN IHC(+) Left 3 mm ILC BREAST [...] HER-2/brian negative and intermediate grade with a Marion score 5 out of 9. Imaging performed [...] IIB [] III [] IV ER: Positive TN: Positive [id number]: Negative Surgery: [x] Yes [] No Surgery [...] 3.5mm which were intermediate grade with a Marion score of 6 out of 9, margins [...] diseases and does not alter medical intervention. 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 *Physical exam and other tests (Pap test) as indicated on each visit. Please continue to see your primary care physician/CRUTCHER HELPER for all general health care recommended for a female your age. Possible late and/or aircraft structural design engineer effects that someone with this type of [...] scheduled for 02/08/2016 at 11:00 at the [facility] 2) Follow up with Dr. Cotton scheduled [...] Received flu shot 13) [employer] at local [facility] REFERRALS [] Star [] [facility] Integrative Therapy [] [facility] Pastoral Services [employer] at the [facility] [] Other (Specify): ADDITIONAL RESOURCES Patients may have many questions and concerns after their cancer treatment ends. A list of local resources as provided below to assist you. [facility] cancer information center: [employer] [employer] (ACS): www.acs.org National Cancer [employer] (NCI): www.cancer.gov [place] [employer] of clinical oncology (ASCO): www.cancer.net [employer]: www.komen.org [employer]: www.bulletn.trongNo Chains Radiation therapy: www.rtanswers.org Patient signature: Eva/YVES/NAKUL signature: Date delivered on: 02/04/2016 60 minutes of time were spent with the patient and over 50% of time was spent in counseling, discussing her issues, chief complaints, diet, exercise, prevention, supplements, etc. or in the coordination of care. Lactic acid acidosis Dyspnea Diverticulosis of large intestine without hemorr inga Anxiety Current Treatment and Therapy Plans No current plan information found. Past Treatment and Therapy Plans No past plan information found. Lifetime Dose Tracking * Chemical Lifetime Dose Automatic Entry Manual Entr y Effective Dose 20.1 mSv 20.1 mSv 0 mSv Total DLP 919 DLP 919 DLP 0 DLP CTDIvol Max 16.8 mGy 16.8 mGy 0 mGy CTDIvol Min 15.3 mGy 15.3 mGy 0 mGy
--- OUTSIDE RECORDS SUMMARY | 2024-07-03 17:29 | XMS_ITS ---
[facility] Organization [facility] Address [address] [place] [address] Care Team Providers Care Nurse Aide Evaluator Name Role Phone Trae Thompson MD Unavailable [phone] Onofre James MD PhD Unavailable Low Alvarez MD Primary Care Provider [phone] Brown Handley MD Unavailable Juan Diego Etienne MD Unavailable [phone] Active Problems Patient Care Coordination No te Formatting of this note is d ifferent from the original. BMT Inpatient Care Coordination Overview Diagnosis [place] Floor [address] Treatment Plan Stacie/velcade/dex Reason for Admission 02/26/23 - recurrent LLQ Abd pain, N/V Transplant/IEC Planning BMT/IEC Plan HLA typing/IDMs [] Insurance Approval [] Discharge Planning Anticipated Discharge Date 03/02 Patient Education Completed [x] Issue to be Resolved Before Discharge Discharge Disposition HOME Requests Sent to Case Management, Pharmacy PA Team, or Medical Assistants Post-Discharge Follow-Up Living Situation/Distance from [facility] Caregiver Lab/Transfusion Frequency Labs are stable Venous Access & Care implanted vascular device Local Oncologist Contact Phone: Fax: Post-Discharge Office Visit (H30) [place] 03/27 Miscellaneous Notes: Problem Noted Date Diagnosed Date Esophageal thickening 08/01/2023 Abnormal gastrointestinal PET scan 08/01/[address] scan 03/13/2023 History of colon polyps 03/13/2023 Anxiety 03/03/2023 Assessment & Plan (03/03/2023 1:12 PM TRUST ADMINISTRATOR): Continue Sertraline 50 mg daily. LLQ abdominal pain 02/27/2023 Assessment & Plan (03/03/2023 1:11 PM TRUST ADMINISTRATOR): Presents with 3 days of diarrhea, nausea [...] empiric therapy for acute diverticulitis at the [facility] given prior GI history, prior similar [...] Stable exam in clinic. Continue current regimen. 1/2 dose 24/26 mg BID entresto and coreg. We made no additional changes today. I asked that she continue to monitor her BP at home with good improvement in her EF will not push to add SGLT2i or MRA at this point. Dr. Etienne in 6 months. Assessment & Plan (02/27/2023 3:30 PM TRUST ADMINISTRATOR): EF35% TTE 05/29/22 No features of active heart failure or volume overload. GMDT: coreg 3.125 mg BID-hold for dehydration and poor oral intake Suspected Pneumonia 01/14/2023 Assessment & Plan (01/14/2023 1:05 AM TRUST ADMINISTRATOR): Recent COVID-19 tested positive on 01/03/2023 treated [...] 01/14/2023 Assessment & Plan (01/14/2023 1:04 AM TRUST ADMINISTRATOR): Continue home Breo and Singulair Abnormal urinalysis 01/14/2023 Assessment & Plan (01/14/2023 1:07 AM TRUST ADMINISTRATOR): UA was positive for 1+ leukocyte esterase, 11-20 WBCs, 2+ bacteria. Denies any urinary frequency/dysuria/hematuria Status post Macrobid 1 dose in the [facility] Already on IV ceftriaxone for suspected pneumonia Moderate protein-calorie malnutrition 01/14/2023 Hx of multiple myeloma 01/13/2023 Vertigo 12/18/2022 Assessment & Plan (01/14/2023 1:07 AM TRUST ADMINISTRATOR): Meclizine p.r.n. Assessment & Plan (12/18/2022 12:23 PM CDT): Symptoms consistent with vertigo. - Discharge home with meclizine QID PRN - Counseled pt on safety and fall prevention - Ambulating well with cane Hypothyroidism, unspecified 12/17/2022 Assessment & Plan (01/14/2023 1:00 AM TRUST ADMINISTRATOR): Continue levothyroxine 50 mcg daily Assessment & Plan (12/17/2022 11:47 AM CDT): - c/w home synthroid. Anemia due to chemotherapy 07/11/2022 History of ischemic Cardiomyopathy 07/10/2022 Assessment & Plan (01/14/2023 1:02 AM TRUST ADMINISTRATOR): Now with recovered LVEF( previously EF 46% [...] 06/23/2022 Cancer Staging:Clinical stage from 07/11/2022:RISS Stage III(Ibwr-4-ktvceccthdnik (mg/L): 27.7, Albumin (g/dL): 3.6, ISS: Stage III, High-risk cytogenetics: Present, LDH: Normal) - Signed by Tiago Currie MD on 07/11/2022 Assessment & Plan (03/01/2023 5:41 PM TRUST ADMINISTRATOR): Diagnosed May 2022. IgA Lambda Multiple Myeloma, [...] prn. Assessment & Plan (01/14/2023 12:59 AM TRUST ADMINISTRATOR): s/[id number] of daratumumab/Bortezomib/Dexamethasone on 01/02/23 Transfuse per [...] (01/09/2022): Added automatically from request for surgery [id number] CAD (coronary artery disease) 04/06/2021 Assessment & Plan (01/14/2023 1:02 AM TRUST ADMINISTRATOR): s/p PCI-LAD 12/24/2020 Continue aspirin, Coreg Assessment & Plan (07/10/2022 2:22 PM CDT): Denies any chest pain. Does admit to some dyspnea with exertion such as taking the stairs. Unclear etiology as it could be multi-factorial secondary to deconditioning, multiple myeloma and anemia (most recent hemoglobin 8.7). Continue aspirin, carvedilol and losartan. Essential hypertension 08/02/2020 Assessment & Plan (01/14/2023 1:00 AM TRUST ADMINISTRATOR): Blood pressure stable Continue Coreg Assessment & Plan (12/18/2022 12:20 PM CDT): - Hold coreg, lasix, aldactone and losartan overnight. Can resume at discharge. Assessment & Plan (07/10/2022 2:19 PM CDT): Well controlled. Continue Carvedilol, losartan and spironolactone. Dyslipidemia 04/26/2020 Assessment & Plan (02/27/2023 3:33 PM TRUST ADMINISTRATOR): Continue ezetimibe Assessment & Plan (07/10/2022 2:18 PM CDT): Last LDL at goal of < 70. Continue Zetia and [place] 3. 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 2000,R breast,T1BN0([facility] involved 2/3), ER+,PA+,Her2 neg AC x 3, Thiotepa/Novantrone x 1 RT,Tamoxifen tried, couldn't tolerate STAGE: TIB Nmi1,stage *IB New primary right breast: PATHOLOGY: 10/11/15 11/09/15 right TM/SLN; left TM Breast, right, lumpectomy: -Invasive lobular carcinoma 5.5 cm + 5 cm, ER(+) PA(+) Her 2 (-) Ki-67 37% // LN [...] IIB [] III [] IV ER: Positive PA: Positive [id number]: Negative Surgery: [x] Yes [] No Surgery [...] diseases and does not alter medical intervention. 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 *Physical exam and other tests (Pap test) as indicated on each visit. Please continue to see your primary care physician/MACHINE [employer]ING [employer] for all general health care recommended for a female your age. Possible late and/or care home effects that someone with this type of [...] scheduled for 02/08/2016 at 11:00 at the [facility] 2) Follow up with Dr. [...] libido- physical exercise recommended. Can refer to [facility] program for counseling and possible acupuncture. 6) [...] Received flu shot 13) [employer] at local [facility] REFERRALS [] Star [] [facility] [] [employer] [facility] [employer] at the [facility] [] Other (Specify): ADDITIONAL RESOURCES Patients may have many questions and concerns after their cancer treatment ends. A list of local resources as provided below to assist you. [facility] cancer information center: [place] [employer] (ACS): www.acs.org National Cancer [place] (NCI): www.cancer.gov [place] Society of clinical oncology (ASCO): www.cancer.net [employer]: www.komen.org [employer]: www.livestronSimGym.beSUCCESS Radiation therapy: www.rtanswers.org Patient signature: Eva/YVES/RN signature: Date delivered on: 02/04/2016 60 minutes of time were spent with the patient and over 50% of time was spent in counseling, discussing her issues, chief complaints, diet, exercise, prevention, supplements, etc. or in the coordination of care. Current Treatment and Therapy Plans BMT Adult Blood and Platelet Administration for Inpatient* Plan Start Date: 12/16/2022 Plan Provider:Suman Canales MD Linked Problems Multiple myeloma (HCC) Treatment Medications No medications scheduled. COVID-19 - BMT (CMV Positive) Adult Blood and Platelet Administration for Outpatient* Plan Start Date:07/12/2022 Plan Provider:Suman Canales MD Linked Problems Anemia due to chemotherapyMu ltiple myeloma (HCC) Treatment Medications No medications scheduled. Daratumumab SUBCUTANEOUS / Bortezomib (weekly) / Dexamethasone - 21/28-day cycles - Myeloma* Plan Start Date:07/03/2022 Plan Provider:Suman Canales MD Linked Problems Multiple myeloma, remission status unspecified (HCC) Treatment Medications Current Day (Day 1 , Cycle 22 treatment only - Planned for 07/22/2024) Next Day (Day 1, Cycle 23 ROV - Planned for 08/19/2024) bortezomib (VELCADE)daratumumab-fihj (DARZALEX FASPRO) (DARZALEX FASPRO)daratumumab-fihj (DARZALEZ FASPRO) (DARZELEX FASPRO) daratumumab-fihj (DARZALEX FASPRO) 1,800 mg -30,000 units hyaluronidase subcutaneous injection daratumumab-fihj (DARZALEX FASPRO) 1,800 mg -30,000 units hyaluronidase subcutaneous injection darbepoetin (ARANESP) Injection every 2 weeks-MDS* Plan Start Date:07/18/2022 Plan Provider:Suman Canales MD Linked Problems Multiple myeloma not having achieved remission (HCC)Anemia due to chemotherapy Treatment Medications No medications scheduled. Denosumab (Xgeva) Every 4 Weeks* Plan Start Date:07/25/2022 Plan Provider:Suman Canales MD Linked Problems Multiple myeloma, remission status unspecified (HCC) Treatment Medications Current Day (Day 1 , Cycle 18 - Planned for 03/17/2024) Next Day (Day 1, Cycle 19 - Planned for 04/13/2024) No medications scheduled. No medications schedul ed. No medications scheduled. Electrolyte Replacement* Plan Start Date:03/02/2023 Plan Provider:Suman Canales MD Linked Problems Multiple myeloma (HCC) Treatment Medications No medications scheduled. Hydration Therapy Plan* Plan Start Date:11/14/2022 Plan Provider:Suman Canales MD Linked Problems Multiple myeloma (HCC) Treatment Medications No medications scheduled. IV Maintenance Therapy Plan* Plan Start Date:07/25/2023 Plan Provider:Smuan Canales MD Linked Problems Multiple myeloma (HCC) Treatment Medications No medications scheduled. Past Treatment and Therapy Plans Oncology Chemotherapy Treatment Plan Name Start Date Discontinue Date Treatment Medications Discontinue Reason Plan Provider Cycles Daratumumab SUBCUTANEOUS / Lenalidomide / Dexamethasone - 28 Day Cycles - Myeloma 07/04/2022 10/31/2022 daratumumab-fi hj (DARZALEX FASPRO) (DARZALEX FASPRO)daratum umab-fihj (DARZALEZ FASPRO) (DARZELEX FASPRO)lenalid omide (REVLIMID) Therapy Complete Suman Nicole MD 4 of 12 cycles started Specialty Infusion Treatment Plan Name Start Date Discontinue Date Treatment Medications Discontinue Reason Plan Provider Denosumab (XGEVA) Injection 07/25/2022 08/17/2023 No medications scheduled. Therapy Complete Suman Goss MD Lifetime Dose Tracking * Chemical Lifetime Dose Automatic Entry Manual Entr y Fluoro Time 9.801 minutes 9.801 minutes 0 minutes Air kerma at the reference point (Ka,r) 1,218.43 mGy 5 .43 mGy 1,213 mGy DLP 3,709 mGycm 3,709 mGycm 0 mGycm Resolved Problems Problem Noted Date Diagnosed Date Resolved Date Malnutrition 02/27/2023 03/04/2023 Assessment & Plan (02/27/2023 3:29 PM TRUST ADMINISTRATOR): Presents with significant weight loss with examination revealing temporal depression, loss of buccal fat and shrunken cheeks Meets the criteria for malnutrition Plan: Will obtain RD consult Encourage PO intake (>50% of portion of meals) Assistance with meals as needed by family calibrator barometers/provider team Weekly weights and charting Oral nutrition supplementation TID Nausea & vomiting 12/16/2022 03/04/2023 Assessment & Plan (12/17/2022 11:44 AM CDT): - supportive care with anti-emetics PRN Diverticulitis 09/04/2019 11/01/2019 Overview (09/04/2019): Added automatically from request for surgery [id number] Sigmoid diverticulitis 09/03/201910/31
--- OUTSIDE RECORDS SUMMARY | 2024-07-03 18:56 | XMS_ITS | Clinical Summary ---
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 Repair Name Role Phone Trae Thompson MD Unavailable Onofre James MD PhD Unavailable Low Alvarez MD Primary Care Provider [phone] Brown Handley MD Unavailable Juan Diego Etienne MD Unavailable [phone] Allergies Active Allergy Reactions Criticality Noted [...] Inpatient Care Coordination Overview Diagnosis [place] Floor [address] Treatment Plan Stacie/velcade/dex Reason for Admission 02/26/23 - recurrent LLQ Abd pain, N/V Transplant/IEC Planning BMT/IEC Plan HLA typing/IDMs [] Insurance Approval [] Discharge Planning Anticipated Discharge Date 03/02 Patient Education Completed [x] Issue to be Resolved Before Discharge Discharge Disposition HOME Requests Sent to Case Management, Pharmacy PA Team, or Medical Assistants Post-Discharge Follow-Up Living Situation/Distance from [facility] Caregiver Lab/Transfusion Frequency Labs are stable Venous Access & Care implanted vascular device Local Oncologist Contact Phone: Fax: Post-Discharge Office Visit (H30) [place] 03/27 Miscellaneous Notes: Problem Noted Date Diagnosed Date Esophageal thickening 08/01/2023 Abnormal gastrointestinal PET scan 08/01/[address] scan 03/13/2023 History of colon polyps 03/13/2023 Anxiety 03/03/2023 Assessment & Plan (03/03/2023 1:12 PM NEGOTIATIONS DIRECTOR): Continue Sertraline 50 mg daily. LLQ abdominal pain 02/27/2023 Assessment & Plan (03/03/2023 1:11 PM NEGOTIATIONS DIRECTOR): Presents with 3 days of diarrhea, nausea [...] empiric therapy for acute diverticulitis at the [facility] given prior GI history, prior [...] months. Assessment & Plan (02/27/2023 3:30 PM NEGOTIATIONS DIRECTOR): EF35% TTE 05/29/22 No features of active heart failure or volume overload. GMDT: coreg 3.125 mg BID-hold for dehydration and poor oral intake Suspected Pneumonia 01/14/2023 Assessment & Plan (01/14/2023 1:05 AM NEGOTIATIONS DIRECTOR): Recent COVID-19 tested positive on 01/03/2023 treated [...] 01/14/2023 Assessment & Plan (01/14/2023 1:04 AM NEGOTIATIONS DIRECTOR): Continue home Breo and Singulair Abnormal urinalysis 01/14/2023 Assessment & Plan (01/14/2023 1:07 AM NEGOTIATIONS DIRECTOR): UA was positive for 1+ leukocyte esterase, 11-20 WBCs, 2+ bacteria. Denies any urinary frequency/dysuria/hematuria Status post Macrobid 1 dose in the [facility] Already on IV ceftriaxone for suspected pneumonia Moderate protein-calorie malnutrition 01/14/2023 Hx of multiple myeloma 01/13/2023 Vertigo 12/18/2022 Assessment & Plan (01/14/2023 1:07 AM NEGOTIATIONS DIRECTOR): Meclizine p.r.n. Assessment & Plan (12/18/2022 12:23 PM CDT): Symptoms consistent with vertigo. - Discharge home with meclizine QID PRN - Counseled pt on safety and fall prevention - Ambulating well with cane Hypothyroidism, unspecified 12/17/2022 Assessment & Plan (01/14/2023 1:00 AM NEGOTIATIONS DIRECTOR): Continue levothyroxine 50 mcg daily Assessment & Plan (12/17/2022 11:47 AM CDT): - c/w home synthroid. Anemia due to chemotherapy 07/11/2022 History of ischemic Cardiomyopathy 07/10/2022 Assessment & Plan (01/14/2023 1:02 AM NEGOTIATIONS DIRECTOR): Now with recovered LVEF( previously EF 46% [...] 06/23/2022 Cancer Staging:Clinical stage from 07/11/2022:RISS Stage III(Vegh-5-ujgjqzzehkahd (mg/L): 27.7, Albumin (g/dL): 3.6, ISS: Stage III, High-risk cytogenetics: Present, LDH: Normal) - Signed by Tiago Currie MD on 07/11/2022 Assessment & Plan (03/01/2023 5:41 PM NEGOTIATIONS DIRECTOR): Diagnosed May 2022. IgA Lambda Multiple Myeloma, [...] prn. Assessment & Plan (01/14/2023 12:59 AM NEGOTIATIONS DIRECTOR): s/pD15C7 of daratumumab/Bortezomib/Dexamethasone on 01/02/23 Transfuse per [...] (01/09/2022): Added automatically from request for surgery [id number] CAD (coronary artery disease) 04/06/2021 Assessment & Plan (01/14/2023 1:02 AM NEGOTIATIONS DIRECTOR): s/p PCI-LAD 12/24/2020 Continue aspirin, Coreg Assessment & Plan (07/10/2022 2:22 PM CDT): Denies any chest pain. Does admit to some dyspnea with exertion such as taking the stairs. Unclear etiology as it could be multi-factorial secondary to deconditioning, multiple myeloma and anemia (most recent hemoglobin 8.7). Continue aspirin, carvedilol and losartan. Essential hypertension 08/02/2020 Assessment & Plan (01/14/2023 1:00 AM NEGOTIATIONS DIRECTOR): Blood pressure stable Continue Coreg Assessment & Plan (12/18/2022 12:20 PM CDT): - Hold coreg, lasix, aldactone and losartan overnight. Can resume at discharge. Assessment & Plan (07/10/2022 2:19 PM CDT): Well controlled. Continue Carvedilol, losartan and spironolactone. Dyslipidemia 04/26/2020 Assessment & Plan (02/27/2023 3:33 PM NEGOTIATIONS DIRECTOR): Continue ezetimibe Assessment & Plan (07/10/2022 2:18 PM CDT): Last LDL at goal of < 70. Continue Zetia and Hankins 3. 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 [employer] has a variant classification program which performs [...] other tests as indicated on each visit RECEIVING LEAD Continue your yearly visit. *Physical exam and other tests (Pap test) as indicated on each visit. Please continue to see your primary care physician/RECEIVING LEAD for all general health care recommended for a female your age. Possible late and/or long term care administrator effects that someone with this type of [...] scheduled for 02/08/2016 at 11:00 at the [facility] 2) Follow up with Dr. Cotton scheduled [...] Received flu shot 13) [employer] at local [facility] REFERRALS [] Star [] [facility] [] [facility] [employer] at the [facility] [] Other (Specify): ADDITIONAL RESOURCES Patients may have many questions and concerns after their cancer treatment ends. A list of local resources as provided below to assist you. [facility] cancer information center: [place] [employer] (ACS): www.acs.org National Cancer [place] (NCI): www.cancer.gov [place] Society of clinical oncology (ASCO): www.cancer.net K[employer]: www.komen.org [employer]: www.Service Management [employer]OG[employer] Radiation therapy: www.rtanswers.org Patient signature: Eva/YVES/NAKUL signature: Date delivered on: 02/04/2016 60 minutes of time were spent with the patient and over 50% of time was spent in counseling, discussing her issues, chief complaints, diet, exercise, prevention, supplements, etc. or in the coordination of care. Resolved Problems Problem Noted Date Diagnosed Date Resolved Date Malnutrition 02/27/2023 03/04/2023 Assessment & Plan (02/27/2023 3:29 PM NEGOTIATIONS DIRECTOR): Presents with significant weight loss with examination revealing temporal depression, loss of buccal fat and shrunken cheeks Meets the criteria for malnutrition Plan: Will obtain RD consult Encourage PO intake (>50% of portion of meals) Assistance with meals as needed by family straddle carrier operator/provider team Weekly weights and charting Oral nutrition supplementation TID Nausea & vomiting 12/16/2022 03/04/2023 Assessment & Plan (12/17/2022 11:44 AM CDT): - supportive care with anti-emetics PRN Diverticulitis 09/04/2019 11/01/2019 Overview (09/04/2019): Added automatically from request for surgery [id number] Sigmoid diverticulitis 09/03/201910/31 Encounters Date Type Department Care Team Description 06/24/2024 9:00 AM CDT Infusion [facility]fusion [address] [place] [id number] Multiple myeloma, remission status unspecified (HCC) (Primary Dx) 06/24/2024 8:00 AM CDT Office Visit [facility] [address] [place] [phone] Bailee Mares NP Multiple myeloma, remission status unspecified (HCC) (Primary Dx) 06/24/2024 7:00 AM CDT Clinical Support [facility] - Lab Collection [facility] 6 [place] [address] Multiple myeloma, remission status unspecified (HCC) 06/19/2024 Orders Only [facility] [address] [place] [phone] Bailee Mares NP 06/17/2024 Orders Only [facility] [address] [facility] Floor 6 [place] [address] Bailee Mares NP 06/14/2024 12:49 AM CDT - 06/14/2024 5:17 AM CDT Emergency [facility] 1 [place] [address] Krista Borden MD Rhinovirus infection (Primary Dx) Discharge Disposition: Discharge to home or self care 05/20/2024 10:00 AM CDT Infusion [facility] [address] [facility] Floor 6 [place] [address] Multiple myeloma not having achieved remission (HCC) (Primary Dx); Multiple myeloma, remission status unspecified (HCC) 05/20/2024 9:00 AM CDT Clinical Support [facility] - Lab Collection [address] [facility] Floor 6 [place] [address] Multiple myeloma, remission status unspecified (HCC) 05/15/2024 10:30 AM CDT Office Visit [facility] [address] [facility] 8th [place] [address] [place] [address] Aisha Simpson NP Heart failure with reduced ejection fraction (HCC) (Primary Dx) 05/14/2024 Orders Only [facility] Floor 6 [place] [address] Bailee Mares NP Multiple myeloma, remission status unspecified (HCC) (Primary Dx) 04/22/2024 1:30 PM NEGOTIATIONS DIRECTOR Infusion [facility] [address] [facility] Floor 5 [place] [address] Multiple myeloma not having achieved remission (HCC) (Primary Dx); Multiple myeloma, remission status unspecified (HCC) 04/22/2024 12:30 PM NEGOTIATIONS DIRECTOR Office Visit [facility] Floor 6 [place] [address] Bailee Mares NP Multiple myeloma, remission status unspecified (HCC) (Primary Dx) 04/22/2024 11:30 AM NEGOTIATIONS DIRECTOR Clinical Support [facility] - Lab Collection [address] [facility] Floor 6 [place] [address] Multiple myeloma, remission status unspecified (HCC) 04/14/2024 Orders Only [facility] [address] [facility] 6 [place] [phone] Kaleigh hunt, Suman Wong MD from Last [...] pur e alcohol) occ glass of wine NGDATA Answer Date Recorded In the past 12 months has [employer], gas, oil, or water [employer] threatened to shut off services in your [...] week 03/02/2023 How often do you attend [facility] or [facility]atsdin services? Never 03/02/2023 Do you belong to any clubs o r organizations such as baptism groups, unions, fraternal or athletic groups, or [...] on file Legal Sex Female 10:03 AM NEGOTIATIONS DIRECTOR Gender Identity Female 11/27/2023 9:47 AM CDT [...] 02/26/2015, 01/23/2012 Medical Devices Implanted Type Area Director Of Operations For Therapy Device Identifier Shelf Expiration Date Model / Serial / Lot Davol Inc/C R Bard [id number] Monofilament Soft Lightweight Low Profile Square - [id number] Implanted:Qty: 1 on 03/27/2022 by Shiva Galdamez MD at [facility] Mesh N/A: Abdomen [employer] Inc/C R Bard [id number] 07/23/2026 [id number] / / [id number] [employer] [id number] Synergy Xd Monorail 2.5mm 16mm 144cm Delivery System 1 Access - [id number] - [id number] Implanted:Qty: 1 on 12/24/2020 by Juan Diego Etienne MD at [facility] Stent Left: Coronary [employer]ar 07/12/2022 [id number] / [id number] / [id number] Bilateral Total Knee Arthroplasty Knee Ang[employer] Excela Low Porfile Power Port 8fr 1.6mm 1 Lumen [id number] - [id number] Implanted:Qty: 1 on 08/01/2022 at [facility] Angio Dynamics 03/26/2027 [id number] Procedures Procedure Name Priority Date/Time Associated Diagnosis [...] unspecified (HCC) EGFR STAT 04/22/2024 11:55 AM NEGOTIATIONS DIRECTOR Multiple myeloma, remission status unspecified (HCC) DIFFERENTIAL AUTO Routine 04/22/2024 11: 55 AM NEGOTIATIONS DIRECTOR Multiple myeloma, remission status unspecified (HCC) PROTEIN ELECTROPHORESIS, WITH REFLEX, SERUM Routine 04/22/2024 11:55 AM NEGOTIATIONS DIRECTOR Multiple myeloma, remission status unspecified (HCC) IGG Routine 04/22/2024 11:55 AM NEGOTIATIONS DIRECTOR Multiple myeloma, remission status unspecified (HCC) IGM Routine 04/22/2024 11:55 AM NEGOTIATIONS DIRECTOR Multiple myeloma, remission status unspecified (HCC) IGA Routine 04/22/2024 11:55 AM NEGOTIATIONS DIRECTOR Multiple myeloma, remission status unspecified (HCC) IMMUNOGLOBULIN FREE LIGHT CHAINS Routine 04/22/2024 11:55 AM NEGOTIATIONS DIRECTOR Multiple myeloma, remission status unspecified (HCC) IMMUNOTYPING Routine 04/22/2024 11:55 AM NEGOTIATIONS DIRECTOR Multiple myeloma, remission status unspecified (HCC) LACTATE DEHYDROGENASE Routine 04/22/2024 11:55 AM NEGOTIATIONS DIRECTOR Multiple myeloma, remission status unspecified (HCC) CBC WITH AUTO DIFFERENTIAL Routine 04/22/2024 11:55 AM NEGOTIATIONS DIRECTOR Multiple myeloma, remission status unspecified (HCC) COMPREHENSIVE METABOLIC PANEL STAT 04/22/2024 11:55 AM NEGOTIATIONS DIRECTOR Multiple myeloma, remission status unspecified (HCC) from Last 3 Months Results * Immunotyping, serum with interpretation (06/24/2024 7:30 AM CDT) Immunosubtraction Please see comment Comment: SMALL IGG KAPPA PARAPROTEIN Reviewed and signed by Brayan Ireland MD 06/25/2024 Blood 06/24/2024 7:30 AM CDT 06/24/2024 8:43 AM CDT Suman Canales MD LAB BLOOD ORDER CRISTEL Final Result [facility] One [facility] [place] [address] * eGFR (06/24/2024 7:30 AM CDT) eGFR [...] ORDER CRISTEL Final Result TA KENDRICK One [facility] [place] [address] * Differential, auto (06/24/2024 7:30 AM CDT) Neutrophil abs 2.43 1.50 - 6.50 K/cumm Comment:Testing performed by : [facility], [address] [place], [place] [phone] Lymphocyte abs 0.81 0.80 - 3.30 K/cumm TA KENDRICK Comment:Testing performed by : [facility], [address] [place] [phone] Monocyte abs 0.67 0.20 - 0.80 K/cumm TA KENDRICK Comment:Testing performed by : [facility], [address] [place], [place] [phone] Eosinophil abs 0.15 0.00 - 0.50 K/cumm TA KENDRICK Comment:Testing performed by : [facility], [address] [place], [place] [phone] Basophil abs 0.03 0.00 - 0.10 K/cumm TA BJ Comment:Testing performed by : [facility], [address] [place] [phone] Neutrophil pct 59.4 % TA KENDRICK Comment: Interpretive Data Percent cell count reference ranges are not reported, since discordance with absolute values may lead to misinterpretation of CBC data. Current Interpretive Data was last revised on 2017. Testing performed by: [facility], [address] [place] [phone] Lymphocyte pct 19.9 % CERENEDINA [facility] Comment: Interpretive Data Percent cell count reference ranges are not reported, since discordance with absolute values may lead to misinterpretation of CBC data. Current Interpretive Data was last revised on 2017. Testing performed by: [facility], [address] [place] [phone] Monocyte pct 16.5 % CERENEDINA [facility] Comment: Interpretive Data Percent cell count reference ranges are not reported, since discordance with absolute values may lead to misinterpretation of CBC data. Current Interpretive Data was last revised on 2017. Testing performed by: [facility], [address] [place], [place] [phone] Eosinophil pct 3.6 % CERENEDINA [facility] Comment: Interpretive Data Percent cell count reference ranges are not reported, since discordance with absolute values may lead to misinterpretation of CBC data. Current Interpretive Data was last revised on 2017. Testing performed by: [facility], [address] [place] [phone] Basophil pct 0.7 % CERENEDINA [facility] Comment: Interpretive Data Percent cell count reference ranges are not reported, since discordance with absolute values may lead to misinterpretation of CBC data. Current Interpretive Data was last revised on 2017. Testing performed by: [facility], [address] [place] [phone] Blood 06/24/2024 7:30 AM CDT 06/24/2024 7:46 AM CDT Suman Canales MD LAB BLOOD ORDER CRISTEL Final Result [facility] One [facility] [place] [address] * (ABNORMAL) Immunoglobulin free light chains (06/24/2024 7:30 AM CDT) Pathologist [facility] [place]/Lambda ratio [facility] 0.35 0.26 - 1.65 Comment: Interpretive Data The Binding Site FreeLite assay procedure was used. Results from different manufacturers or methods may not be comparable. Serial testing should be performed using the same methods and instrumentation. Current Interpretive Data was last revised on 2023. [place] free light chain [facility] 0.25(L) 0.33 - 1.94 mg/dL TA [facility] Comment: Interpretive Data The Binding Site FreeLite assay procedure was used. Results from different manufacturers or methods may not be comparable. Serial testing should be performed using the same methods and instrumentation. Current Interpretive Data was last revised on 2023. Lambda free light chain [facility] 0.72 0.57 - 2.63 mg/dL [facility] Comment: Interpretive Data The Binding Site FreeLite assay procedure was used. Results from different manufacturers or methods may not be comparable. Serial testing should be performed using the same methods and instrumentation. Current Interpretive Data was last revised on 2023. Blood 06/24/2024 7:30 AM CDT 06/24/2024 8:43 AM CDT Suman Canales MD LAB BLOOD ORDER CRISTEL Final Result [facility] One [facility] [place] [address] * (ABNORMAL) CBC with auto differential (06/24/2024 7:30 AM CDT) Pathologist [facility] WBC 4.09 3.80 - 9.90 K/cumm Comment:Testing performed by : [facility], [address] [place] [phone] Hgb 11.5(L) 11.9 - 15.5 g/dL TA [facility] Comment:Testing performed by : [facility], [address] [place] [phone] Hct 34.1(L) 35.6 - 45.5 % TA BJ Comment:Testing performed by : [facility], [address] [place], [place] [phone] Plt 226 150 - 400 K/cumm CERENEDINA BJ Comment:Testing performed by : [facility], [address] [place], [place] [phone] MPV 9.0 6.8 - 10.4 fL CERENEDINA BJ Comment:Testing performed by : [facility], [address] [place], [place] [phone] RBC 3.36(L) 3.90 - 5.20 M/cumm CERENEDINA BJ Comment:Testing performed by : [facility], [address] [place], [place] [phone] MCV 101.4(H) 81.3 - 96.4 fL CERENEDINA BJ Comment:Testing performed by : [facility], [address] [place], [place] [phone] MCH 34.3(H) 27.1 - 33.3 pg CERNER BJ Comment:Testing performed by : [facility], [address] [place] [address] MCHC 33.8 32.3 - 35.7 g/dL CERENEDINA BJ Comment:Testing performed by : [facility], [address] [place], [place] [phone] RDW CV 13.7 11.1 - 14.9 % CERENEDINA BJ Comment:Testing performed by : [facility], [address] [place] [address] NRBC abs 0.00 0.00 - 0.01 K/cumm CERENEDINA BJ Comment:Testing performed by : [facility], [address] [place] [address] Blood 06/24/2024 7:30 AM CDT 06/24/2024 7:46 AM CDT us Suman Canales MD LAB BLOOD ORDER CRISTEL Final Result [facility] One [facility] [place] [address] * (ABNORMAL) Protein electrophoresis with reflex, serum with interpretation (06/24/2024 7:30 AM CDT) [facility] Protein, sr 5.9(L) 6.2 - 8.2 g/dL Albumin 4.0 3.2 - 5.0 g/dL [facility] Alpha-1 globulin 0.3 0.2 - 0.4 g/dL [facility] Alpha-2 globulin 0.8 0.5 - 1.0 g/dL [facility] Beta-1 globulin 0.4 0.3 - 0.6 g/dL [facility] Beta-2 globulin 0.2 0.2 - 0.6 g/dL [facility] Gamma globulin 0.3(L) 0.5 - 1.7 g/dL [facility] SPEP interp Please see comment [facility] Comment: Abnormal restricted peak in gamma region Quantity of restricted peak too low to quantify accurately Decreased gamma globulins Electrophoretic pattern appears similar to previous sample 05/21/2024 *See immunotyping for further information Reviewed and signed by Brayan Ireland MD 06/26/2024 Blood 06/24/2024 7:30 AM CDT 06/24/2024 8:43 AM CDT Suman Canales MD LAB BLOOD ORDER CRISTEL Final Result TA KENDRICK Joie [facility] [place] [address] * Lactate dehydrogenase (LD) (06/24/2024 7:30 AM CDT) [facility] Lactate dehydrogenase (LDH) 188 100 - 250 Units/L Blood 06/24/2024 7:30 AM CDT 06/24/2024 7:48 AM CDT Suman Canales MD LAB BLOOD ORDER CRISTEL Final Result [facility] [employer] [place] [address] * (ABNORMAL) IgA (06/24/2024 7:30 AM CDT) Immunoglobulin A <50(L) 70 - 400 mg/dL Blood 06/24/2024 7:30 AM CDT 06/24/2024 8:05 AM CDT Suman Canales MD LAB BLOOD ORDER CRITSEL Final Result Performing Organization Address [facility] [place] [address] * (ABNORMAL) IgM (06/24/2024 7:30 AM CDT) Immunoglobulin M <25(L) 40 - 230 mg/dL Blood 06/24/2024 7:30 AM CDT 06/24/2024 8:05 AM CDT Suman Canales MD LAB BLOOD ORDER CRISTEL Final Result Performing Organization Address [facility] [facility] Co de Phone Number [facility] [employer] [place] [employer] [place] [address] * (ABNORMAL) IgG (06/24/2024 7:30 AM CDT) Pathologist [facility] Immunoglobulin G <300(L) 700 - 1,600 mg/dL Blood 06/24/2024 7:30 AM CDT 06/24/2024 8:05 AM CDT Suman Canales MD LAB BLOOD ORDER CRISTEL Final Result Performing Organization Address City/[facility] Co de Phone Number [facility] [place] [address] * (ABNORMAL) Comprehensive metabolic panel (06/24/2024 7:30 AM CDT) Sodium 141 135 - 145 mmol/L Potassium, pl 4.6 3.3 - 4.9 mmol/L [facility] Chloride 105 97 - 110 mmol/L [facility] CO2 31 22 - 32 mmol/L [facility] Anion gap 5 2 - 15 mmol/L [facility] BUN 13 6 - 25 mg/dL [facility] Creatinine 0.92 0.60 - 1.10 mg/dL [facility] Glucose 100 70 - 199 mg/dL [facility] Comment: Interpretive Data Fasting glucose >/= [...] 2022. Calcium 9.7 8.5 - 10.3 mg/dL [facility] Bilirubin, total 0.4 0.1 - 1.2 mg/dL [facility] Protein, pl 6.2(L) 6.5 - 8.5 g/dL [facility] Albumin 4.2 3.5 - 5.0 g/dL [facility] Alk phos 43 40 - 130 Units/L [facility] ALT 13 7 - 45 Units/L [facility] AST 23 10 - 45 Units/L [facility] Blood 06/24/2024 7:30 AM CDT 06/24/2024 7:48 AM CDT us Suman Canales MD LAB BLOOD ORDER CRISTEL Final Result [facility] One [facility] [place] [address] * Lactate (06/14/2024 1:20 AM CDT) Pathologist [facility] Lactate 1.1 0.7 - 2.0 mmol/L Blood 06/14/2024 1:20 AM CDT 06/14/2024 1:36 AM CDT José Miguel Hernandez MD LAB BLOOD ORDERABLES Yulia l Result Performing Organization Address [facility] de Phone Number [facility] [place] [address] * (ABNORMAL) Blood gas, venous (06/14/2024 1:20 AM CDT) [facility] pH, Venous 7.48(H) 7.32 - 7.43 PCO2, Venous 31(L) 40 - 50 mmHg [facility] PO2, Venous 30 mmHg [facility] Comment: Interpretive Data No Reference Range Established Current Interpretive Data was last revised on 2017. HCO3 Venous, Calculated 24 20 - 30 mmol/L [facility] BE, venous 0 mmol/L [facility] Comment: Interpretive Data No Reference Range Established Current Interpretive Data was last revised on 2017. Blood 06/14/2024 1:20 AM CDT 06/14/2024 1:28 AM CDT Result [facility] José Miguel Hernandez MD LAB BLOOD ORDERABLES Yulia l Result Performing Organization Address [facility] de Phone Number [facility] [place] [address] * Troponin I high-sensitivity 4-hour (06/14/2024 1:16 AM CDT) [facility] Trop I hs 7 <=17 ng/L Comment: Interpretive Data For further hscTnI resources including the diagnostic algorithm and an aid in interpretation, copy and paste this link: [email or web address].testcatalog.org/[email or web address] Current Interpretive Data last revised 2019. Trop I hs delta 1 ng/L [facility] Trop I hs interp Insignificant [facility] Blood 06/14/2024 1:16 AM CDT 06/14/2024 1:35 AM CDT Vlad Horton MD LAB BLOOD ORDERABLES F inal Result [facility] One [facility] [place] [address] * XR Chest PA Lateral 2 Views [...] MD LAB BLOOD ORDERABLES Final Result [facility] One [facility] [place] [address] * eGFR (06/13/2024 8:47 PM CDT) eGFR [...] Borden MD LAB [facility]LOOD ORDERABLES Final Result [facility] One [facility] [place] [address] * (ABNORMAL) Differential, auto (06/13/2024 8:47 PM CDT) Neutrophil abs 3.42 1.50 - 6.50 K/cumm Imm gran abs 0.02 0.00 - 0.10 K/cumm [facility] Lymphocyte abs 0.68(L) 0.80 - 3.30 K/cumm [facility] Monocyte abs 0.81(H) 0.20 - 0.80 K/cumm [facility] Eosinophil abs 0.16 0.00 - 0.50 K/[facility]umm [facility] Basophil abs 0.03 0.00 - 0.10 K/cumm [facility] Neutrophil pct 66.8 % [facility] Comment: Interpretive Data Percent cell count reference ranges are not reported, since discordance with absolute values may lead to misinterpretation of CBC data. Current Interpretive Data was last revised on 2017. Imm gran pct 0.4 % [facility] Comment: Interpretive Data Percent cell count reference ranges are not reported, since discordance with absolute values may lead to misinterpretation of CBC data. Current Interpretive Data was last revised on 2017. Lymphocyte pct 13.3 % [facility] Comment: Interpretive Data Percent cell count reference ranges are not reported, since discordance with absolute values may lead to misinterpretation of CBC data. Current Interpretive Data was last revised on 2017. Monocyte pct 15.8 % [facility] Comment: Interpretive Data Percent cell count reference ranges are not reported, since discordance with absolute values may lead to misinterpretation of CBC data. Current Interpretive Data was last revised on 2017. Eosinophil pct 3.1 % [facility] Comment: Interpretive Data Percent cell count reference ranges are not reported, since discordance with absolute values may lead to misinterpretation of CBC data. Current Interpretive Data was last revised on 2017. Basophil pct 0.6 % [facility] Comment: Interpretive Data Percent cell count reference ranges are not reported, since discordance with absolute values may lead to misinterpretation of CBC data. Current Interpretive Data was last revised on 2017. Blood 06/13/2024 8:47 PM CDT 06/13/2024 9:03 PM CDT Krista Borden MD LAB BLOOD ORDERABLES Final Result Performing Organization Address City/[facility]/ZIP Co de Phone Number [facility] [place] [address] * (ABNORMAL) CBC with auto differential (06/13/2024 8:47 PM CDT) WBC 5.12 3.80 - 9.90 K/cumm Hgb 13.0 11.9 - 15.5 g/dL [facility] Hct 37.7 35.6 - 45.5 % [facility] Plt 226 150 - 400 K/cumm [facility] MPV 10.8 9.1 - 12.3 fL [facility] RBC 3.78(L) 3.90 - 5.20 M/cumm [facility] MCV 99.7(H) 81.3 - 96.4 fL [facility] MCH 34.4(H) 27.1 - 33.3 pg [facility] MCHC 34.5 32.3 - 35.7 g/dL [facility] RDW CV 13.1 11.1 - 14.9 % [facility] RDW SD 47.9 35.7 - 48.1 fL [facility] NRBC abs 0.00 0.00 - 0.01 K/cumm [facility] Blood 06/13/2024 8:47 PM CDT 06/13/2024 9:03 PM CDT Krista Borden MD LAB BLOOD ORDERABLES Final Result Performing Organization Address City/[facility]/ZIP Co de Phone Number [facility] [place] [address] * Comprehensive metabolic panel (06/13/2024 8:47 PM CDT) Sodium 144 135 - 145 mmol/L Potassium, pl 4.1 3.3 - 4.9 mmol/L [facility] Chloride 107 97 - 110 mmol/L [facility] CO2 26 22 - 32 mmol/L [facility] Anion gap 11 2 - 15 mmol/L [facility] BUN 15 6 - 25 mg/dL [facility] Creatinine 0.91 0.60 - 1.10 mg/dL [facility] Glucose 86 70 - 199 mg/dL [facility] Comment: Interpretive Data Fasting glucose >/= [...] 2022. Calcium 9.6 8.5 - 10.3 mg/dL [facility] Bilirubin, total 0.3 0.1 - 1.2 mg/dL [facility] Protein, pl 6.8 6.5 - 8.5 g/dL [facility] Albumin 4.4 3.5 - 5.0 g/dL [facility] Alk phos 45 40 - 130 Units/L [facility] ALT 20 7 - 45 Units/L [facility] AST 39 10 - 45 Units/L [facility] Blood 06/13/2024 8:47 PM CDT 06/13/2024 9:03 PM CDT us Krista Borden MD LAB BLOOD ORDERABLES Final Result [facility] One [facility] [place] [address] * ECG 12-LEAD (06/13/2024 8:37 PM CDT) [...] Performed by: Isabella Foley MD Authorized by: kT Orlando MD Rate: ECG rate: 75 ECG [...] panel Nasopharyngeal (06/13/2024 8:35 PM CDT) Pathologist [facility] Influenza A RNA Not Detected Not Detected Influenza B RNA Not Detected Not Detected [facility] RSV RNA Not Detected Not Detected [facility] COVID-19 RNA Not Detected Not Detected [facility] Coronavirus 229E RNA Not Detected Not Detected [facility] Coronavirus HKU1 RNA Not Detected Not Detected [facility] Coronavirus NL63 RNA Not Detected Not Detected [facility] Coronavirus OC43 RNA Not Detected Not Detected [facility] Adenovirus DNA Not Detected Not Detected [facility] Metapneumovirus RNA Not Detected Not Detected [facility] Rhinovirus/Enterov irus RNA Detected(A) Not Detected [facility] Parainfluenza 1 RNA Not Detected Not Detected [facility] Parainfluenza 2 RNA Not Detected Not Detected [facility] Parainfluenza 3 RNA Not Detected Not Detected [facility] Parainfluenza 4 RNA Not Detected Not Detected [facility] B. pertussis DNA Not Detected Not Detected [facility] B. parapertussis DNA Not Detected Not Detected [facility] C. pneumoniae DNA Not Detected Not Detected [facility] M. pneumoniae DNA Not Detected Not Detected [facility] Nasopharyngeal 06/13/2024 8: 35 PM CDT 06/13/2024 8:43 PM CDT Narrative [facility] - 06/13/2024 9:44 PM CDT Is the Patient experiencing symptoms consistent with COVID?->Yes Surveillance testing for transplant patient?->No Interpretive Data The CyberSense FilmArray Respiratory Panel (RP2.1) assay is a [...] assay has FDA clearance for testing of FIELD ASSOCIATE swabs. The performance of additional specimen types has been assessed by the performing laboratory. The performance characteristics of this assay have been determined by [facility] Molecular Infectious Disease Laboratory. Current interpretive data was last revised on 21. Krista Borden MD LAB MICROBIOLOGY - GENERAL ORDERABLES Final Result [facility] One [facility] [place] [address] * Immunotyping, serum with interpretation (05/20/2024 9:18 AM CDT) Immunosubtraction Please see comment Comment: SMALL IGG KAPPA PARAPROTEIN Reviewed and signed by Vipul Stuart MD, PhD 05/21/2024 Blood 05/20/2024 9:18 AM CDT 05/20/2024 10:30 AM CDT Bailee Mares FIELD ASSOCIATE LAB BLOOD ORDERABLES Yulia l Result [facility] [place] [address] * eGFR (05/20/2024 9:18 AM CDT) eGFR [...] CDT 05/20/2024 9:28 AM CDT Bailee Mares FIELD ASSOCIATE LAB BLOOD ORDERABLES Yulia l Result [facility] One [facility] [place] [address] * (ABNORMAL) Differential, auto (05/20/2024 9:18 AM CDT) Neutrophil abs 5.1 1.5 - 6.5 K/cumm Comment:Testing performed by : [facility], [address] [place] [phone] Lymphocyte abs 0.4(L) 0.8 - 3.3 K/cumm [facility] Comment:Testing performed by : [facility], [address] [place] [phone] Monocyte abs 0.7 0.2 - 0.8 K/cumm [facility] Comment:Testing performed by : [facility], [address] [place] [phone] Eosinophil abs 0.1 0.0 - 0.5 K/cumm [facility] Comment:Testing performed by : [facility], [address] [place] [phone] Basophil abs 0.1 0.0 - 0.1 K/cumm [facility] Comment:Testing performed by : [facility], [address] [place] [phone] Neutrophil pct 79.1 % [facility] Comment: Interpretive Data Percent cell count reference ranges are not reported, since discordance with absolute values may lead to misinterpretation of CBC data. Current Interpretive Data was last revised on 2017. Testing performed by: [facility], [address] [place] [phone] Lymphocyte pct 5.5 % [facility] Comment: Interpretive Data Percent cell count reference ranges are not reported, since discordance with absolute values may lead to misinterpretation of CBC data. Current Interpretive Data was last revised on 2017. Testing performed by: [facility], [address] [place] [phone] Monocyte pct 11.7 % [facility] Comment: Interpretive Data Percent cell count reference ranges are not reported, since discordance with absolute values may lead to misinterpretation of CBC data. Current Interpretive Data was last revised on 2017. Testing performed by: [facility], [address] [place] [phone] Eosinophil pct 1.5 % [facility] Comment: Interpretive Data Percent cell count reference ranges are not reported, since discordance with absolute values may lead to misinterpretation of CBC data. Current Interpretive Data was last revised on 2017. Testing performed by: [facility], [address] [place] [phone] Basophil pct 2.2 % TA [facility] Comment: Interpretive Data Percent cell count reference ranges are not reported, since discordance with absolute values may lead to misinterpretation of CBC data. Current Interpretive Data was last revised on 2017. Testing performed by: [facility], [address] [place] [phone] Blood 05/20/2024 9:18 AM CDT 05/20/2024 9:25 AM CDT us Bailee Mares FIELD ASSOCIATE LAB BLOOD ORDERABLES Yulia l Result [facility] One [facility] [place] [address] * (ABNORMAL) Immunoglobulin free light chains (05/20/2024 9:18 AM CDT) [place]/Lambda ratio [facility] 0.85 0.26 - 1.65 Comment: Interpretive Data The Binding Site FreeLite assay procedure was used. Results from different manufacturers or methods may not be comparable. Serial testing should be performed using the same methods and instrumentation. Current Interpretive Data was last revised on 2023. [place] free light chain [facility] 0.33 0.33 - 1.94 mg/dL [facility] Comment: Interpretive Data The Binding Site FreeLite assay procedure was used. Results from different manufacturers or methods may not be comparable. Serial testing should be performed using the same methods and instrumentation. Current Interpretive Data was last revised on 2023. Lambda free light chain [facility] 0.39(L) 0.57 - 2.63 mg/dL [facility] Comment: Interpretive Data The Binding Site FreeLite assay procedure was used. Results from different manufacturers or methods may not be comparable. Serial testing should be performed using the same methods and instrumentation. Current Interpretive Data was last revised on 2023. Blood 05/20/2024 9:18 AM CDT 05/20/2024 10:30 AM CDT Bailee Mares FIELD ASSOCIATE LAB BLOOD ORDERABLES Yulia lobo Result [facility] One [facility] [place] [address] * (ABNORMAL) CBC with auto differential (05/20/2024 9:18 AM CDT) WBC 6.4 3.8 - 9.9 K/cumm Comment:Testing performed by : [facility], [address] [place] [address] Hgb 12.1 11.9 - 15.5 g/dL [facility] Comment:Testing performed by : [facility], [address] [place] [address] Hct 35.9 35.6 - 45.5 % [facility] Comment:Testing performed by : [facility], [address] [place] [address] Plt 230 150 - 400 K/cumm [facility] Comment:Testing performed by : [facility], [address] [place] [address] MPV 9.0 6.8 - 10.4 fL [facility] Comment:Testing performed by : [facility], [address] [place] [address] RBC 3.51(L) 3.90 - 5.20 M/cumm [facility] Comment:Testing performed by : [facility], [address] [place] [address] MCV 102.1(H) 81.3 - 96.4 fL [facility] Comment:Testing performed by : [facility], [address] [place] [address] MCH 34.3(H) 27.1 - 33.3 pg [facility] Comment:Testing performed by : [facility], [address] [place] [address] MCHC 33.6 32.3 - 35.7 g/dL [facility] Comment:Testing performed by : [facility], [address] [place] [phone] RDW CV 14.6 11.1 - 14.9 % [facility] Comment:Testing performed by : [facility], [address] [place] [phone] NRBC abs 0.00 0.00 - 0.01 K/cumm TA [facility] Comment:Testing performed by : [facility], [address] [place] [phone] Blood 05/20/2024 9:18 AM CDT 05/20/2024 9:25 AM CDT Bailee Mares FIELD ASSOCIATE LAB BLOOD ORDERABLES Yulia lobo Result [facility] One [facility] [place] [address] * (ABNORMAL) Protein electrophoresis with reflex, serum with interpretation (05/20/2024 9:18 AM CDT) Protein, sr 6.2 6.2 - 8.2 g/dL Albumin 4.2 3.2 - 5.0 g/dL [facility] Alpha-1 globulin 0.3 0.2 - 0.4 g/dL [facility] Alpha-2 globulin 0.9 0.5 - 1.0 g/dL [facility] Beta-1 globulin 0.4 0.3 - 0.6 g/dL [facility] Beta-2 globulin 0.2 0.2 - 0.6 g/dL [facility] Gamma globulin 0.2(L) 0.5 - 1.7 g/dL [facility] SPEP interp Please see comment [facility] Comment: No apparent monoclonal peak Decreased gamma globulins Electrophoretic pattern appears similar to previous sample 04/23/2024 See immunotyping for further information Reviewed and signed by Vipul Stuart MD, PhD 05/21/2024 Blood 05/20/2024 9:18 AM CDT 05/20/2024 10:30 AM CDT us Bailee Mares FIELD ASSOCIATE LAB BLOOD ORDERABLES Yulia l Result Performing Organization Address [facility] Co de Phone Number [facility] [place] [address] * Lactate dehydrogenase (LD) (05/20/2024 9:18 AM CDT) Lactate dehydrogenase (LDH) 182 100 - 250 Units/L Blood 05/20/2024 9:18 AM CDT 05/20/2024 9:28 AM CDT Bailee Mares FIELD ASSOCIATE LAB BLOOD ORDERABLES Yulia l Result Performing Organization Address [facility] de Phone Number [facility] [place] [place] [address] * (ABNORMAL) IgA (05/20/2024 9:18 AM CDT) Immunoglobulin A <50(L) 70 - 400 mg/dL Blood 05/20/2024 9:18 AM CDT 05/20/2024 10:03 AM CDT Bailee Mares NP LAB BLOOD ORDERABLES Yulia l Result Performing Organization Address [facility] de Phone Number [facility] [place] [address] * (ABNORMAL) IgM (05/20/2024 9:18 AM CDT) Immunoglobulin M <25(L) 40 - 230 mg/dL Blood 05/20/2024 9:18 AM CDT 05/20/2024 10:03 AM CDT us Bailee Mares NP LAB BLOOD ORDERABLES Yulia l Result Performing Organization Address [facility]/ZIP Co de Phone Number [facility] [place] [address] * (ABNORMAL) IgG (05/20/2024 9:18 AM CDT) [facility] Immunoglobulin G <300(L) 700 - 1,600 mg/dL Blood 05/20/2024 9:18 AM CDT 05/20/2024 10:03 AM CDT Bailee Mares NP LAB BLOOD ORDERABLES Yulia l Result [facility] [place] [address] * Comprehensive metabolic panel (05/20/2024 9:18 AM CDT) [facility] Sodium 142 135 - 145 mmol/L Potassium, pl 4.3 3.3 - 4.9 mmol/L [facility] Chloride 106 97 - 110 mmol/L [facility] CO2 26 22 - 32 mmol/L [facility] Anion gap 10 2 - 15 mmol/L [facility] BUN 16 6 - 25 mg/dL [facility] Creatinine 0.82 0.60 - 1.10 mg/dL [facility] Glucose 152 70 - 199 mg/dL [facility] Comment: Interpretive Data Fasting glucose >/= [...] 2022. Calcium 9.3 8.5 - 10.3 mg/dL [facility] Bilirubin, total 0.3 0.1 - 1.2 mg/dL [facility] Protein, pl 6.5 6.5 - 8.5 g/dL [facility] Albumin 4.2 3.5 - 5.0 g/dL [facility] Alk phos 71 40 - 130 Units/L [facility] ALT 11 7 - 45 Units/L [facility] AST 19 10 - 45 Units/L [facility] Blood 05/20/2024 9:18 AM CDT 05/20/2024 9:28 AM CDT Bailee Mares FIELD ASSOCIATE LAB BLOOD ORDERABLES Yulia l Result Performing Organization Address City/[facility] Co de Phone Number [facility] [place] [address] * Immunotyping, serum with interpretation (04/22/2024 11:55 AM NEGOTIATIONS DIRECTOR) Pathologist [facility] Immunosubtraction Please see comment Comment: NO PARAPROTEIN DETECTED Reviewed and signed by Brayan Ireland MD 04/23/2024 Blood 04/22/2024 11:5 5 AM NEGOTIATIONS DIRECTOR 04/22/2024 1:43 PM NEGOTIATIONS DIRECTOR Suman Canales MD LAB BLOOD ORDER CRISTEL Final Result Performing Organization Address [facility] Co de Phone Number [facility] [place] [address] * eGFR (04/22/2024 11:55 AM NEGOTIATIONS DIRECTOR) eGFR 65 >=60 mL/min/1. 73 m2 Comment: [...] reviewed 2020. Blood 04/22/2024 11:5 5 AM NEGOTIATIONS DIRECTOR 04/22/2024 12:11 PM NEGOTIATIONS DIRECTOR us Suman Canales MD LAB BLOOD ORDER CRISTEL Final Result [facility] One [facility] [place] [address] * (ABNORMAL) Differential, auto (04/22/2024 11:55 AM NEGOTIATIONS DIRECTOR) Neutrophil abs 4.4 1.5 - 6.5 K/cumm Comment:Testing performed by : [facility], [address] [place] [phone] Lymphocyte abs 0.5(L) 0.8 - 3.3 K/cumm [facility] Comment:Testing performed by : [facility], [address] [place] [address] [phone] Monocyte abs 0.5 0.2 - 0.8 K/cumm CERNER BJ Comment:Testing performed by : [facility], [address] [place] [phone] Eosinophil abs 0.1 0.0 - 0.5 K/cumm CERNER BJ Comment:Testing performed by : [facility], [address] [place] [phone] Basophil abs 0.0 0.0 - 0.1 K/cumm CERNER BJ Comment:Testing performed by : [facility], [address] [place] [phone] Neutrophil pct 79.7 % CERNER BJ Comment: Interpretive Data Percent cell count reference ranges are not reported, since discordance with absolute values may lead to misinterpretation of CBC data. Current Interpretive Data was last revised on 2017. Testing performed by: [facility], [address] [place] [phone] Lymphocyte pct 8.2 % CERENEDINA BJ Comment: Interpretive Data Percent cell count reference ranges are not reported, since discordance with absolute values may lead to misinterpretation of CBC data. Current Interpretive Data was last revised on 2017. Testing performed by: [facility], [address] [place] [phone] Monocyte pct 9.5 % CERENEDINA BJ Comment: Interpretive Data Percent cell count reference ranges are not reported, since discordance with absolute values may lead to misinterpretation of CBC data. Current Interpretive Data was last revised on 2017. Testing performed by: [facility], [address] [place] [phone] Eosinophil pct 2.3 % CERENEDINA KENDRICK Comment: Interpretive Data Percent cell count reference ranges are not reported, since discordance with absolute values may lead to misinterpretation of CBC data. Current Interpretive Data was last revised on 2017. Testing performed by: [facility], [address] [place] [phone] Basophil pct 0.3 % CERENEDINA [facility] Comment: Interpretive Data Percent cell count reference ranges are not reported, since discordance with absolute values may lead to misinterpretation of CBC data. Current Interpretive Data was last revised on 2017. Testing performed by: [facility], [address] [place] [phone] Blood 04/22/2024 11:5 5 AM NEGOTIATIONS DIRECTOR 04/22/2024 12:11 PM NEGOTIATIONS DIRECTOR us Suman Canales MD LAB BLOOD ORDER CRISTEL Final Result TA KENDRICK [facility] [place] [address] * (ABNORMAL) Immunoglobulin free light chains (04/22/2024 11:55 AM NEGOTIATIONS DIRECTOR) [place]/Lambda ratio BJ 1.08 0.26 - 1.65 Comment: Interpretive Data The Binding Site FreeLite assay procedure was used. Results from different manufacturers or methods may not be comparable. Serial testing should be performed using the same methods and instrumentation. Current Interpretive Data was last revised on 2023. [place] free light chain BJ 0.39 0.33 - [...] on 2023. Blood 04/22/2024 11:5 5 AM NEGOTIATIONS DIRECTOR 04/22/2024 1:42 PM NEGOTIATIONS DIRECTOR Suman Canales MD LAB BLOOD ORDER CRISTEL Final Result TA KENDRICK [facility] Department of Laboratories [place], [place] [id number] * (ABNORMAL) CBC with auto differential (04/22/2024 11:55 AM NEGOTIATIONS DIRECTOR) [facility] WBC 5.6 3.8 - 9.9 K/cumm Comment:Testing performed by : [facility], [address] [place] [phone] Hgb 12.2 11.9 - 15.5 g/dL TA KENDRICK Comment:Testing performed by : [facility], [address] [place] [phone] Hct 35.8 35.6 - 45.5 % TA KENDRICK Comment:Testing performed by : [facility], [address] [place] [address] Plt 250 150 - 400 K/cumm CERNER [facility] Comment:Testing performed by : [facility], [address] [place] [address] MPV 9.3 6.8 - 10.4 fL CERNER BJ Comment:Testing performed by : [facility], [address] [place] [address] RBC 3.50(L) 3.90 - 5.20 M/cumm CERNER BJ Comment:Testing performed by : [facility], [address] [place] [address] MCV 102.2(H) 81.3 - 96.4 fL CERENEDINA BJ Comment:Testing performed by : [facility], [address] [place] [address] MCH 34.7(H) 27.1 - 33.3 pg CERNER [facility] Comment:Testing performed by : [facility], [address] [place] [address] MCHC 34.0 32.3 - 35.7 g/dL CERNER [facility] Comment:Testing performed by : [facility], [address] [place] [address] RDW CV 14.5 11.1 - 14.9 % [facility] Comment:Testing performed by : [facility], [address] [place] [address] NRBC abs 0.00 0.00 - 0.01 K/cumm [facility] Comment:Testing performed by : [facility], [address] [place] [address] Blood 04/22/2024 11:5 5 AM NEGOTIATIONS DIRECTOR 04/22/2024 12:11 PM NEGOTIATIONS DIRECTOR us Suman Canales MD LAB BLOOD ORDER CRISTEL Final Result [facility] One [facility] [place] [address] * (ABNORMAL) Protein electrophoresis with reflex, serum with interpretation (04/22/2024 11:55 AM NEGOTIATIONS DIRECTOR) [facility] Protein, sr 6.0(L) 6.2 - 8.2 g/dL Albumin 4.3 3.2 - 5.0 g/dL [facility] Alpha-1 globulin 0.2 0.2 - 0.4 g/dL [facility] Alpha-2 globulin 0.7 0.5 - 1.0 g/dL [facility] Beta-1 globulin 0.4 0.3 - 0.6 g/dL [facility] Beta-2 globulin 0.2 0.2 - 0.6 g/dL [facility] Gamma globulin 0.2(L) 0.5 - 1.7 g/dL [facility] SPEP interp Please see comment [facility] Comment: Possible abnormal restricted peak in gamma region Decreased gamma globulins Electrophoretic pattern appears similar to previous sample 02/19/24 See immunotyping for further information Reviewed and signed by Brayan Ireland MD 04/23/2024 Blood 04/22/2024 11:5 5 AM NEGOTIATIONS DIRECTOR 04/22/2024 1:43 PM NEGOTIATIONS DIRECTOR Suman Canales MD LAB BLOOD ORDER CRISTEL Final Result Performing Organization Address [facility] Co de Phone Number [facility] Department [place] [employer] [place] [address] * Lactate dehydrogenase (LD) (04/22/2024 11:55 AM NEGOTIATIONS DIRECTOR) [facility] Lactate dehydrogenase (LDH) 207 100 - 250 Units/L Blood 04/22/2024 11:5 5 AM NEGOTIATIONS DIRECTOR 04/22/2024 12:11 PM NEGOTIATIONS DIRECTOR Suman Canales MD LAB BLOOD ORDER CRISTEL Final Result Performing Organization Address [facility] Co de Phone Number [facility] [place] [address] * (ABNORMAL) IgA (04/22/2024 11:55 AM NEGOTIATIONS DIRECTOR) Pathologist [facility] Immunoglobulin A <50(L) 70 - 400 mg/dL Blood 04/22/2024 11:5 5 AM NEGOTIATIONS DIRECTOR 04/22/2024 12:30 PM NEGOTIATIONS DIRECTOR Suman Canales MD LAB BLOOD ORDER CRISTEL Final Result Performing Organization Address [facility] Co de Phone Number [facility] [place] [address] * (ABNORMAL) IgM (04/22/2024 11:55 AM NEGOTIATIONS DIRECTOR) [facility] Immunoglobulin M <25(L) 40 - 230 mg/dL Blood 04/22/2024 11:5 5 AM NEGOTIATIONS DIRECTOR 04/22/2024 12:30 PM NEGOTIATIONS DIRECTOR Suman Canales MD LAB BLOOD ORDER CRISTEL Final Result Performing Organization Address [facility] Co de Phone Number [facility] [place] [address] * (ABNORMAL) IgG (04/22/2024 11:55 AM NEGOTIATIONS DIRECTOR) [facility] Immunoglobulin G <300(L) 700 - 1,600 mg/dL Blood 04/22/2024 11:5 5 AM NEGOTIATIONS DIRECTOR 04/22/2024 12:30 PM NEGOTIATIONS DIRECTOR Suman Canales MD LAB BLOOD ORDER CRISTEL Final Result Performing Organization Address [facility] Co de Phone Number [facility] [place] [address] * (ABNORMAL) Comprehensive metabolic panel (04/22/2024 11:55 AM NEGOTIATIONS DIRECTOR) [facility] Sodium 141 135 - 145 mmol/L Potassium, pl 4.8 3.3 - 4.9 mmol/L [facility] Chloride 103 97 - 110 mmol/L [facility] CO2 30 22 - 32 mmol/L [facility] Anion gap 8 2 - 15 mmol/L [facility] BUN 23 6 - 25 mg/dL [facility] Creatinine 0.89 0.60 - 1.10 mg/dL [facility] Glucose 91 70 - 199 mg/dL [facility] Comment: Interpretive Data Fasting glucose >/= [...] 2022. Calcium 10.1 8.5 - 10.3 mg/dL [facility] Bilirubin, total 0.2 0.1 - 1.2 mg/dL [facility] Protein, pl 6.3(L) 6.5 - 8.5 g/dL [facility] Albumin 4.3 3.5 - 5.0 g/dL [facility] Alk phos 63 40 - 130 Units/L [facility] ALT 12 7 - 45 Units/L [facility] AST 23 10 - 45 Units/L [facility] Blood 04/22/2024 11:5 5 AM NEGOTIATIONS DIRECTOR 04/22/2024 12:11 PM NEGOTIATIONS DIRECTOR us Suman Canales MD LAB BLOOD ORDER CRISTEL Final Result [facility] Department [place] [address] from Last 3 Months Insurance MEDICARE [employer] MEDICARE SUPPLEMENT MEDICARE [facility] MEDICARE MEDICARE [facility] MEDICARE [facility] MEDICARE SUPPLEMENT Advance Directives For more information, please contact: [phone] * Full Code (Latest Code Status on [...] 11:50 PM 01/19/2023 9:49 PM Care Teams Armature Winder Helper Repair Relationship Specialty Start Date End Date Low Alvarez MD [address] [place] [address] PCP - General Internal Medicine 10/22/19 Trae Thompson MD Surgeon Colon and Rectal Surgery 06/25/19 Onofre James MD PhD Consulting Physician Gastroenterology 06/25/19 Brown Handley MD [address] [place] [address] Materials Technician Gastroenterology 12/10/19 Juan Diego Etienne MD [address] [place] [address] Referring Physician Cardiology 01/04/22
--- OUTSIDE RECORDS SUMMARY | 2024-07-03 18:56 | XMS_ITS | Clinical Summary ---
Author Organization [facility] [place] Address [address] [place] [address] Phone Care Team Providers Care Buffer Operator Name Role Phone Low Alvarez MD Primary [...] Alvarez MD Referring Provider: Low Alvarez MD [address] [place] [address] Other: Problem Noted Date Diagnosed Date Mild intermittent asthma with acute exacerbation 07/14/2016 Lump of right breast 10/11/2015 Bilateral malignant neoplasm involving both nipple and areola in female 10/15/2008 Cancer Staging:Clinical stage from 11/28/2000:Stage I(T1b, N0, M0, Free text: 2 nodes ihc +) - Unsigned Pathologic: Unsigned Overview (02/04/2016): Images from the original note were not included. 2001,R breast,T1BN0([facility] involved 2/3), ER+,MO+,Her2 neg AC x 3, Thiotepa/Novantrone x 1 RT,Tamoxifen tried, couldn't tolerate STAGE: TIB Nmi1,stage *IB New primary right breast: PATHOLOGY: 10/11/15 11/09/15 right TM/SLN; left TM Breast, right, lumpectomy: -Invasive lobular carcinoma 5.5 cm + 5 cm, ER(+) MO(+) Her 2 (-) Ki-67 37% // LN [...] HER-2/brian negative and intermediate grade with a Gaithersburg score 5 out of 9. Imaging performed [...] IIB [] III [] IV ER: Positive MO: Positive [id number]: Negative Surgery: [x] Yes [] No Surgery date: 11/09/2015 Surgical procedures/location/findings: Bilateral mastectomies with sentinel lymph node biopsy on the right. Final pathology on the right breast demonstrated invasive lobular carcinoma measuring greater than 5 cm, intermediate grade with a Gaithersburg score of 6 out of 9, margins [...] diseases and does not alter medical intervention. [employer] has a variant classification program which performs [...] other tests as indicated on each visit DUMPER Continue your yearly visit. *Physical exam and other tests (Pap test) as indicated on each visit. Please continue to see your primary care physician/DUMPER for all general health care recommended for a female your age. Possible late and/or manager intermediate effects that someone with this type of [...] scheduled for 02/08/2016 at 11:00 at the [facility] 2) Follow up with Dr. Cotton [...] libido- physical exercise recommended. Can refer to [facility] program for counseling and possible acupuncture. 6) [...] Received flu shot 13) [employer] at local [facility] REFERRALS [] Star [] [facility] Integrative Therapy [] [facility] Pastoral Services [employer] at the [facility] [] Other (Specify): ADDITIONAL RESOURCES Patients may have many questions and concerns after their cancer treatment ends. A list of local resources as provided below to assist you. 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 HAND Gender Identity Not on file Sexual Orientation [...] DENSITY 2 SITES (10/15/2008) T-SCORE FEMUR >=-0.99 BALANCING MACHINE OPERATOR AL RADIOLOGY T-SCORE SPINE >=-0.99 BALANCING MACHINE OPERATOR AL RADIOLOGY T-SCORE WRIST >=-0.99 BALANCING MACHINE OPERATOR AL RADIOLOGY T-SCORE HEEL >=-0.99 EXTERNA L RADIOLOGY Anatomical Region Laterality Modality Other Leticia Segundo MD DIAGNOSTIC IMAGING ORDERABLES Final Result from Last 3 Months or Most Recently Relevant to Health Maintenance Insurance MEDICARE PART A AND B [employer] ACCESS/TRUE [employer] PPO Advance Directives For more information, please contact: [phone] * Full Code (Latest Code Status on [...] 10:03 AM 10/11/2015 4:11 PM Care Teams Buffer Operator Relationship Specialty Start Date End Date Low Alvarez MD [address] [place] [address] PCP - General 10/15/08
--- OUTSIDE RECORDS SUMMARY | 2024-07-03 18:56 | XMS_ITS | Clinical Summary ---
Author Organization [facility] Address [facility] [place] [address] Care Team Providers Care Dinkey Engineer Name Role Phone Low Alvarez MD Primary Care Provider [phone] Allergies Active Allergy Reactions Criticality Noted Date [...] age to complete this topic Insurance MEDICARE [facility] Care Teams Dinkey Engineer Relationship Specialty Start Date End Date Low Alvarez MD [address] [place] [address] PCP - General INTERNAL MEDICINE 11/06/19
--- OUTSIDE RECORDS SUMMARY | 2024-07-03 18:56 | XMS_ITS | Encounter Summary ---
Author Organization [facility] Address [address] [place] [address] Phone Care Team Providers Care Job Coach Name Role Phone Trae Thompson MD Unavailable [phone] Onofre James MD PhD Unavailable [phone] Low Alvarez MD Primary Care Provider [phone] Brown Handley MD Unavailable Juan Diego Etienne MD Unavailable [phone] Encounter Details Date Type Department Care Team (Late st Contact Info) Description 05/18/2023 Telephone [facility] On[facility] [address] [facility] 7th [place] [address] [place] [address] Quiana Coles Social History Tobacco Use Types Packs/Day Years Used Date Smoking Tobacco: Never Smokeless Tobacco: Never Alcohol Use Standard Drinks/Week Comments Yes 0 (1 standard drink = 0.6 oz pur e alcohol) occ glass of wine [facility] Utilities Answer Date Recorded In the past 12 months has [employer] electric, gas, oil, or water company threatened [...] often do you attend chur ch or muslim services? 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 Gender Identity Female 11/27/2023 9:47 AM CDT [...] documented as of this encounter Care Teams Job Coach Relationship Specialty Start Date End Date Low Alvarez MD [address] [place] [address] PCP - General Internal Medicine 10/22/19 Trae Thompson MD Surgeon Colon and Rectal Surgery 06/25/19 Onofre James MD PhD Consulting Physician Gastroenterology 06/25/19 Brown Handley MD [facility] [address] [place] [address] Oxygen Therapist Gastroenterology 12/10/19 Juan Diego Etienne MD [address] [place] [address] Referring Physician Cardiology 01/04/22 documented as of this encounter
--- OUTSIDE RECORDS SUMMARY | 2024-07-03 18:56 | XMS_ITS ---
[facility] Address [address] [place] [address] Care Team Providers Care Medical Scheduler Name Role Phone Trae Thompson MD Unavailable Onofre James MD PhD Unavailable Low Alvarez MD Primary Care Provider [phone] Brown Handley MD Unavailable Juan Diego Etienne MD Unavailable [phone] Active Problems Patient Care Coordination No te Formatting of this note is d ifferent from the original. BMT Inpatient Care Coordination Overview Diagnosis [place] Floor [address] Treatment Plan Stacie/velcade/dex Reason for Admission 02/26/23 - recurrent LLQ Abd pain, N/V Transplant/IEC Planning BMT/IEC Plan HLA typing/IDMs [] Insurance Approval [] Discharge Planning Anticipated Discharge Date 03/02 Patient Education Completed [x] Issue to be Resolved Before Discharge Discharge Disposition HOME Requests Sent to Case Management, Pharmacy PA Team, or Medical Assistants Post-Discharge Follow-Up Living Situation/Distance from [facility] Caregiver Lab/Transfusion Frequency Labs are stable Venous Access & Care implanted vascular device Local Oncologist Contact Phone: Fax: Post-Discharge Office Visit (H30) [place] 03/27 Miscellaneous Notes: Problem Noted Date Diagnosed Date Esophageal thickening 08/01/2023 Abnormal gastrointestinal PET scan 08/01/[address] scan 03/13/2023 History of colon polyps 03/13/2023 Anxiety 03/03/2023 Assessment & Plan (03/03/2023 1:12 PM EVENT SALES REPRESENTATIVE): Continue Sertraline 50 mg daily. LLQ abdominal pain 02/27/2023 Assessment & Plan (03/03/2023 1:11 PM EVENT SALES REPRESENTATIVE): Presents with 3 days of diarrhea, nausea [...] empiric therapy for acute diverticulitis at the [facility] given prior GI history, prior similar presentation, [...] months. Assessment & Plan (02/27/2023 3:30 PM EVENT SALES REPRESENTATIVE): EF35% TTE 05/29/22 No features of active heart failure or volume overload. GMDT: coreg 3.125 mg BID-hold for dehydration and poor oral intake Suspected Pneumonia 01/14/2023 Assessment & Plan (01/14/2023 1:05 AM EVENT SALES REPRESENTATIVE): Recent COVID-19 tested positive on 01/03/2023 treated [...] 01/14/2023 Assessment & Plan (01/14/2023 1:04 AM EVENT SALES REPRESENTATIVE): Continue home Breo and Singulair Abnormal urinalysis 01/14/2023 Assessment & Plan (01/14/2023 1:07 AM EVENT SALES REPRESENTATIVE): UA was positive for 1+ leukocyte esterase, 11-20 WBCs, 2+ bacteria. Denies any urinary frequency/dysuria/hematuria Status post Macrobid 1 dose in the [facility] Already on IV ceftriaxone for suspected pneumonia Moderate protein-calorie malnutrition 01/14/2023 Hx of multiple myeloma 01/13/2023 Vertigo 12/18/2022 Assessment & Plan (01/14/2023 1:07 AM EVENT SALES REPRESENTATIVE): Meclizine p.r.n. Assessment & Plan (12/18/2022 12:23 PM CDT): Symptoms consistent with vertigo. - Discharge home with meclizine QID PRN - Counseled pt on safety and fall prevention - Ambulating well with cane Hypothyroidism, unspecified 12/17/2022 Assessment & Plan (01/14/2023 1:00 AM EVENT SALES REPRESENTATIVE): Continue levothyroxine 50 mcg daily Assessment & Plan (12/17/2022 11:47 AM CDT): - c/w home synthroid. Anemia due to chemotherapy 07/11/2022 History of ischemic Cardiomyopathy 07/10/2022 Assessment & Plan (01/14/2023 1:02 AM EVENT SALES REPRESENTATIVE): Now with recovered LVEF( previously EF 46% [...] 06/23/2022 Cancer Staging:Clinical stage from 07/11/2022:RISS Stage III(Cjaq-3-ruruofijlsadt (mg/L): 27.7, Albumin (g/dL): 3.6, ISS: Stage III, High-risk cytogenetics: Present, LDH: Normal) - Signed by Tiago Currie MD on 07/11/2022 Assessment & Plan (03/01/2023 5:41 PM EVENT SALES REPRESENTATIVE): Diagnosed May 2022. IgA Lambda Multiple Myeloma, [...] prn. Assessment & Plan (01/14/2023 12:59 AM EVENT SALES REPRESENTATIVE): s/[id number] of daratumumab/Bortezomib/Dexamethasone on 01/02/23 Transfuse per [...] (01/09/2022): Added automatically from request for surgery [id number] CAD (coronary artery disease) 04/06/2021 Assessment & Plan (01/14/2023 1:02 AM EVENT SALES REPRESENTATIVE): s/p PCI-LAD 12/24/2020 Continue aspirin, Coreg Assessment & Plan (07/10/2022 2:22 PM CDT): Denies any chest pain. Does admit to some dyspnea with exertion such as taking the stairs. Unclear etiology as it could be multi-factorial secondary to deconditioning, multiple myeloma and anemia (most recent hemoglobin 8.7). Continue aspirin, carvedilol and losartan. Essential hypertension 08/02/2020 Assessment & Plan (01/14/2023 1:00 AM EVENT SALES REPRESENTATIVE): Blood pressure stable Continue Coreg Assessment & Plan (12/18/2022 12:20 PM CDT): - Hold coreg, lasix, aldactone and losartan overnight. Can resume at discharge. Assessment & Plan (07/10/2022 2:19 PM CDT): Well controlled. Continue Carvedilol, losartan and spironolactone. Dyslipidemia 04/26/2020 Assessment & Plan (02/27/2023 3:33 PM EVENT SALES REPRESENTATIVE): Continue ezetimibe Assessment & Plan (07/10/2022 2:18 PM CDT): Last LDL at goal of < 70. Continue Zetia and [place] 3. Of note, intolerant to statins in [...] (09/30/2019): Added automatically from request for surgery [id number] Adenomatous polyp of colon 06/25/2019 Gastroesophageal reflux disease 11/03/2014 Assessment & Plan (01/14/2023 1:00 AM EVENT SALES REPRESENTATIVE): Continue PPI Assessment & Plan (12/17/2022 11:45 AM CDT): - Continue PPI Irritable bowel syndrome 07/15/2013 Bilateral malignant neoplasm involving both nipple and areola in female 10/15/2008 08/08/2022 Overview (08/08/2022): Images from the original note were not included. 2000,R breast,T1BN0([facility] involved 2/3), ER+,AL+,Her2 neg AC x 3, Thiotepa/Novantrone x 1 RT,Tamoxifen tried, couldn't tolerate STAGE: TIB Nmi1,stage *IB New primary right breast: PATHOLOGY: 10/11/15 11/09/15 right TM/SLN; left TM Breast, right, lumpectomy: -Invasive lobular carcinoma 5.5 cm + 5 cm, ER(+) AL(+) Her 2 (-) Ki-67 37% // LN [...] IIB [] III [] IV ER: Positive AL: Positive Qui5Aom: Negative Surgery: [x] Yes [] No Surgery [...] diseases and does not alter medical intervention. [employer] has a variant classification program which performs [...] other tests as indicated on each visit SALES PROMOTER Continue your yearly visit. *Physical exam and other tests (Pap test) as indicated on each visit. Please continue to see your primary care physician/SALES PROMOTER for all general health care recommended for a female your age. Possible late and/or long-term effects that someone with this type of [...] scheduled for 02/08/2016 at 11:00 at the [facility] 2) Follow up with Dr. Cotton [...] libido- physical exercise recommended. Can refer to [facility] program for counseling and possible acupuncture. 6) [...] Received flu shot 13) [employer] at local [facility] REFERRALS [] Star [] [facility] [] [employer] at the [facility] [] Other (Specify): ADDITIONAL RESOURCES Patients may have many questions and concerns after their cancer treatment ends. A list of local resources as provided below to assist you. [facility] cancer information center: [place] [employer] (ACS): www.acs.org National Cancer [place] (NCI): www.cancer.gov [place] [employer] of clinical oncology (ASCO): www.cancer.net [employer]: www.komen.org [employer]: www.livestronEnglish Helper.[employer] Radiation therapy: www.rtanswers.org Patient signature: Eva/YVES/RN signature: [...] Maintenance Therapy Plan* Plan Start Date:07/25/2023 Plan Provider:Suman Canales MD Linked Problems Multiple [...] 03/04/2023 Assessment & Plan (02/27/2023 3:29 PM EVENT SALES REPRESENTATIVE): Presents with significant weight loss with examination revealing temporal depression, loss of buccal fat and shrunken cheeks Meets the criteria for malnutrition Plan: Will obtain RD consult Encourage PO intake (>50% of portion of meals) Assistance with meals as needed by family director of capital giving/provider team Weekly weights and charting Oral nutrition supplementation TID Nausea & vomiting 12/16/2022 03/04/2023 Assessment & Plan (12/17/2022 11:44 AM CDT): - supportive care with anti-emetics PRN Diverticulitis 09/04/2019 11/01/2019 Overview (09/04/2019): Added automatically from request for surgery [id number] Sigmoid diverticulitis 09/03/201910/31
--- OUTSIDE RECORDS SUMMARY | 2024-07-03 18:56 | XMS_ITS | Referral Summary ---
Author Organization [facility] Address [address] [place] [address] Care Team Providers Care Buggy Driver Name Role Phone Trae Thompson MD Unavailable Onofre James MD PhD Unavailable Low Alvarez MD Primary Care Provider Brown Handley MD Unavailable Juan Diego Etienne MD Unavailable [phone] Encounters Date Type Department Care Team Description 06/24/2024 8:00 AM CDT Office Visit [facility] [address] [place] [phone] Bailee Mares, YVES Multiple myeloma, remission status unspecified (HCC) (Primary Dx) 06/24/2024 7:00 AM CDT Clinical Support [facility] - Lab Collection [facility] [address] [place] [address] Multiple myeloma, remission status unspecified (HCC) 06/24/2024 9:[address] [facility] - Infusion [address] [address] Multiple myeloma, remission status unspecified (HCC) (Primary Dx) 06/19/2024 Orders Only [facility] [address] [place] [phone] VishnuBailee danielle NP 06/17/2024 Orders Only [facility] [address] [facility] Floor 6 [place] [address] Bailee Mares NP 06/14/2024 12:49 AM CDT - 06/14/2024 5:17 AM CDT Emergency [facility] Emergency Department 1 [place] [address] Krista Borden MD Rhinovirus infection (Primary Dx) Discharge Disposition: Discharge to home or self care 05/20/2024 9:00 AM CDT Clinical Support [facility] - Lab Collection [address] [facility] Floor 6 [place] [address] Multiple myeloma, remission status unspecified (HCC) 05/20/2024 10:[address] [facility] - Infusion [address] [facility] Floor 6 [place] [address] Multiple myeloma not having achieved remission (HCC) (Primary Dx); Multiple myeloma, remission status unspecified (HCC) 05/15/2024 10:30 AM CDT Office Visit [facility] Cardiology Formerly [facility], [facility] 8th [place] [address] [place] [address] Aisha Simpson NP Heart failure with reduced ejection fraction (HCC) (Primary Dx) 05/14/2024 Orders Only [facility] Floor 6 [place] [address] Bailee Mares NP Multiple myeloma, remission status unspecified (HCC) (Primary Dx) 04/22/2024 11:30 AM GROUP UNDERWRITER Clinical Support [facility] - Lab Collection [address] [facility] Floor 6 [place] [address] Multiple myeloma, remission status unspecified (HCC) 04/22/2024 1:30 PM GROUP UNDERWRITER Infusion [facility] - Infusion [address] 5 [place] [address] Multiple myeloma not having achieved remission (HCC) (Primary Dx); Multiple myeloma, remission status unspecified (HCC) 04/22/2024 12:30 PM GROUP UNDERWRITER Office Visit [facility] 6 [place] [address] Bailee Mares NP Multiple myeloma, remission status unspecified (HCC) (Primary Dx) 04/14/2024 Orders Only [facility] [address] [place] [address] Suman Lackey MD from Last [...] Inpatient Care Coordination Overview Diagnosis [place] [address] Treatment Plan Stacie/velcade/dex Reason for Admission 02/26/23 - recurrent LLQ Abd pain, N/V Transplant/IEC Planning BMT/IEC Plan HLA typing/IDMs [] Insurance Approval [] Discharge Planning Anticipated Discharge Date 03/02 Patient Education Completed [x] Issue to be Resolved Before Discharge Discharge Disposition HOME Requests Sent to Case Management, Pharmacy PA Team, or Medical Assistants Post-Discharge Follow-Up Living Situation/Distance from [facility] Caregiver Lab/Transfusion Frequency Labs are stable Venous Access & Care implanted vascular device Local Oncologist Contact Phone: Fax: Post-Discharge Office Visit (H30) [place] 03/27 Miscellaneous Notes: Problem Noted Date Diagnosed Date Esophageal thickening 08/01/2023 Abnormal gastrointestinal PET scan 08/01/[address] scan 03/13/2023 History of colon polyps 03/13/2023 Anxiety 03/03/2023 Assessment & Plan (03/03/2023 1:12 PM GROUP UNDERWRITER): Continue Sertraline 50 mg daily. LLQ abdominal pain 02/27/2023 Assessment & Plan (03/03/2023 1:11 PM GROUP UNDERWRITER): Presents with 3 days of diarrhea, nausea [...] empiric therapy for acute diverticulitis at the [facility] given prior GI history, prior similar presentation, [...] months. Assessment & Plan (02/27/2023 3:30 PM GROUP UNDERWRITER): EF35% TTE 05/29/22 No features of active heart failure or volume overload. GMDT: coreg 3.125 mg BID-hold for dehydration and poor oral intake Suspected Pneumonia 01/14/2023 Assessment & Plan (01/14/2023 1:05 AM GROUP UNDERWRITER): Recent COVID-19 tested positive on 01/03/2023 treated [...] 01/14/2023 Assessment & Plan (01/14/2023 1:04 AM GROUP UNDERWRITER): Continue home Breo and Singulair Abnormal urinalysis 01/14/2023 Assessment & Plan (01/14/2023 1:07 AM GROUP UNDERWRITER): UA was positive for 1+ leukocyte esterase, 11-20 WBCs, 2+ bacteria. Denies any urinary frequency/dysuria/hematuria Status post Macrobid 1 dose in the [facility] Already on IV ceftriaxone for suspected pneumonia Moderate protein-calorie malnutrition 01/14/2023 Hx of multiple myeloma 01/13/2023 Vertigo 12/18/2022 Assessment & Plan (01/14/2023 1:07 AM GROUP UNDERWRITER): Meclizine p.r.n. Assessment & Plan (12/18/2022 12:23 PM CDT): Symptoms consistent with vertigo. - Discharge home with meclizine QID PRN - Counseled pt on safety and fall prevention - Ambulating well with cane Hypothyroidism, unspecified 12/17/2022 Assessment & Plan (01/14/2023 1:00 AM GROUP UNDERWRITER): Continue levothyroxine 50 mcg daily Assessment & Plan (12/17/2022 11:47 AM CDT): - c/w home synthroid. Anemia due to chemotherapy 07/11/2022 History of ischemic Cardiomyopathy 07/10/2022 Assessment & Plan (01/14/2023 1:02 AM GROUP UNDERWRITER): Now with recovered LVEF( previously EF 46% [...] 06/23/2022 Cancer Staging:Clinical stage from 07/11/2022:RISS Stage III(Wdpa-0-qberdecstwafs (mg/L): 27.7, Albumin (g/dL): 3.6, ISS: Stage III, High-risk cytogenetics: Present, LDH: Normal) - Signed by Tiago Currie MD on 07/11/2022 Assessment & Plan (03/01/2023 5:41 PM GROUP UNDERWRITER): Diagnosed May 2022. IgA Lambda Multiple Myeloma, [...] prn. Assessment & Plan (01/14/2023 12:59 AM GROUP UNDERWRITER): s/[id number] of daratumumab/Bortezomib/Dexamethasone on 01/02/23 Transfuse per [...] (01/09/2022): Added automatically from request for surgery [id number] CAD (coronary artery disease) 04/06/2021 Assessment & Plan (01/14/2023 1:02 AM GROUP UNDERWRITER): s/p PCI-LAD 12/24/2020 Continue aspirin, Coreg Assessment & Plan (07/10/2022 2:22 PM CDT): Denies any chest pain. Does admit to some dyspnea with exertion such as taking the stairs. Unclear etiology as it could be multi-factorial secondary to deconditioning, multiple myeloma and anemia (most recent hemoglobin 8.7). Continue aspirin, carvedilol and losartan. Essential hypertension 08/02/2020 Assessment & Plan (01/14/2023 1:00 AM GROUP UNDERWRITER): Blood pressure stable Continue Coreg Assessment & Plan (12/18/2022 12:20 PM CDT): - Hold coreg, lasix, aldactone and losartan overnight. Can resume at discharge. Assessment & Plan (07/10/2022 2:19 PM CDT): Well controlled. Continue Carvedilol, losartan and spironolactone. Dyslipidemia 04/26/2020 Assessment & Plan (02/27/2023 3:33 PM GROUP UNDERWRITER): Continue ezetimibe Assessment & Plan (07/10/2022 2:18 PM CDT): Last LDL at goal of < 70. Continue Zetia and [place] 3. 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 [employer] has a variant classification program which performs [...] other tests as indicated on each visit TUNNEL FORM PLACING SUPERVISOR Continue your yearly visit. *Physical exam and other tests (Pap test) as indicated on each visit. Please continue to see your primary care physician/TUNNEL FORM PLACING SUPERVISOR for all general health care recommended for a female your age. Possible late and/or joint terminal attack controller effects that someone with this type of [...] scheduled for 02/08/2016 at 11:00 at the [facility] 2) Follow up with Dr. [...] Received flu shot 13) [employer] at local [facility] REFERRALS [] Star [] [facility] [] [facility] Pastoral Services [employer] at the [facility] [] Other (Specify): ADDITIONAL RESOURCES Patients may have many questions and concerns after their cancer treatment ends. A list of local resources as provided below to assist you. [facility] cancer information center: [place] Cancer Society (ACS): www.acs.org National Cancer Solomon (NCI): www.cancer.gov [place] Society of clinical oncology (ASCO): www.cancer.net Komen: www.komen.org [employer]: [employer] Radiation therapy: www.rtanswers.org Patient signature: M.D./IT SUPPORT TECHNICIAN/RN signature: Date delivered on: 02/04/2016 60 minutes of time were spent with the patient and over 50% of time was spent in counseling, discussing her issues, chief complaints, diet, exercise, prevention, supplements, etc. or in the coordination of care. Resolved Problems Problem Noted Date Diagnosed Date Resolved Date Malnutrition 02/27/2023 03/04/2023 Assessment & Plan (02/27/2023 3:29 PM GROUP UNDERWRITER): Presents with significant weight loss with examination revealing temporal depression, loss of buccal fat and shrunken cheeks Meets the criteria for malnutrition Plan: Will obtain RD consult Encourage PO intake (>50% of portion of meals) Assistance with meals as needed by family director of medical review/provider team Weekly weights and charting Oral nutrition supplementation TID Nausea & vomiting 12/16/2022 03/04/2023 Assessment & Plan (12/17/2022 11:44 AM CDT): - supportive care with anti-emetics PRN Diverticulitis 09/04/2019 11/01/2019 Overview (09/04/2019): Added automatically from request for surgery [id number] Sigmoid diverticulitis 09/03/201910/31 Immunizations Immunization Administration Dates [...] pur e alcohol) occ glass of wine Keynoirities Answer Date Recorded In the past 12 months has [employer], [employer], or water [employer]tips threatened to shut off services in your [...] How often do you attend chur or islam services? Never 03/02/2023 Do you belong to any clubs o r organizations such as confucianism groups, unions, fraternal or athletic groups, or [...] place to sleep or slept in a fdc (including now)? No 03/02/2023 Personal Safety Answer Date Recorded Have you ever been in or are you currently in a harmful physical or emotional relationship or is someone making you feel afraid or unsafe? Denies 06/13/2024 Comments No Sex and Gender Information Value Date Recorded Sex Assigned at Not on file Legal Sex Female 10:03 AM GROUP UNDERWRITER Gender Identity Female 11/27/2023 9:47 AM CDT [...] on file Medical Devices Implanted Type Area Speech Instructor Device Identifier Shelf Expiration Date Model / Serial / Lot Davol Inc/C R Bard [id number] Monofilament Soft Lightweight Low Profile Square - [id number] Implanted:Qty: 1 on 03/27/2022 by Shiva Galdamez MD at [facility] Mesh N/A: Abdomen [employer]/C R Bard [id number] 07/23/2026 [id number] / / [id number] [employer] Bandar [id number] Synergy Xd Monorail 2.5mm 16mm 144cm Delivery System 1 Access - [id number] - [id number] Implanted:Qty: 1 on 12/24/2020 by Juan Diego Etienne MD at [facility] Stent Left: Coronary [employer] Bandar 07/12/2022 [id number] / [id number] / [id number] Bilateral Total Knee Arthroplasty Knee [employer] Excela Low Porfile Power Port 8fr 1.6mm 1 Lumen [id number] - [id number] Implanted:Qty: 1 on 08/01/2022 at [facility] Ang[employer] 03/26/2027 [id number] 1 0 / / [id number] Procedures Procedure Name Priority Date/Time Associated Diagnosis [...] unspecified (HCC) EGFR STAT 04/22/2024 11:55 AM GROUP UNDERWRITER Multiple myeloma, remission status unspecified (HCC) DIFFERENTIAL AUTO Routine 04/22/2024 11: 55 AM GROUP UNDERWRITER Multiple myeloma, remission status unspecified (HCC) PROTEIN ELECTROPHORESIS, WITH REFLEX, SERUM Routine 04/22/2024 11:55 AM GROUP UNDERWRITER Multiple myeloma, remission status unspecified (HCC) IGG Routine 04/22/2024 11:55 AM GROUP UNDERWRITER Multiple myeloma, remission status unspecified (HCC) IGM Routine 04/22/2024 11:55 AM GROUP UNDERWRITER Multiple myeloma, remission status unspecified (HCC) IGA Routine 04/22/2024 11:55 AM GROUP UNDERWRITER Multiple myeloma, remission status unspecified (HCC) IMMUNOGLOBULIN FREE LIGHT CHAINS Routine 04/22/2024 11:55 AM GROUP UNDERWRITER Multiple myeloma, remission status unspecified (HCC) IMMUNOTYPING Routine 04/22/2024 11:55 AM GROUP UNDERWRITER Multiple myeloma, remission status unspecified (HCC) LACTATE DEHYDROGENASE Routine 04/22/2024 11:55 AM GROUP UNDERWRITER Multiple myeloma, remission status unspecified (HCC) CBC WITH AUTO DIFFERENTIAL Routine 04/22/2024 11:55 AM GROUP UNDERWRITER Multiple myeloma, remission status unspecified (HCC) COMPREHENSIVE METABOLIC PANEL STAT 04/22/2024 11:55 AM GROUP UNDERWRITER Multiple myeloma, remission status unspecified (HCC) from Last 3 Months Results * Immunotyping, serum with interpretation (06/24/2024 7:30 AM CDT) Immunosubtraction Please see comment Comment: SMALL IGG KAPPA PARAPROTEIN Reviewed and signed by Brayan Ireland MD 06/25/2024 Blood 06/24/2024 7:30 AM CDT 06/24/2024 8:43 AM CDT Suman Canales MD LAB BLOOD ORDER CRISTEL Final Result Performing Organization Address City/State/ZIP Co al Phone Number [facility] Department [place] [address] * eGFR (06/24/2024 7:30 AM CDT) eGFR [...] MD LAB BLOOD ORDER CRISTEL Final Result [facility] Department [place] [address] * Differential, auto (06/24/2024 7:30 AM CDT) Neutrophil abs 2.43 1.50 - 6.50 K/cumm Comment:Testing performed by : [facility], [address] [place] [address] Lymphocyte abs 0.81 0.80 - 3.30 K/cumm [facility] Comment:Testing performed by : [facility], [address] [place], [place] [phone] Monocyte abs 0.67 0.20 - 0.80 K/cumm [facility] Comment:Testing performed by : [facility], [address] [place], [place] [phone] Eosinophil abs 0.15 0.00 - 0.50 K/cumm TA [facility] Comment:Testing performed by : [facility], [address] [place] [phone] Basophil abs 0.03 0.00 - 0.10 K/cumm TA [facility] Comment:Testing performed by : [facility], [address] [place] [phone] Neutrophil pct 59.4 % CERNER BJ Comment: Interpretive Data Percent cell count reference ranges are not reported, since discordance with absolute values may lead to misinterpretation of CBC data. Current Interpretive Data was last revised on 2017. Testing performed by: [facility], [address] [place] [phone] Lymphocyte pct 19.9 % CERNER [facility] Comment: Interpretive Data Percent cell count reference ranges are not reported, since discordance with absolute values may lead to misinterpretation of CBC data. Current Interpretive Data was last revised on 2017. Testing performed by: [facility], [address] [place] [phone] Monocyte pct 16.5 % TA [facility] Comment: Interpretive Data Percent cell count reference ranges are not reported, since discordance with absolute values may lead to misinterpretation of CBC data. Current Interpretive Data was last revised on 2017. Testing performed by: [facility], [address] [place] [phone] Eosinophil pct 3.6 % TA [facility] Comment: Interpretive Data Percent cell count reference ranges are not reported, since discordance with absolute values may lead to misinterpretation of CBC data. Current Interpretive Data was last revised on 2017. Testing performed by: [facility], [address] [place] [phone] Basophil pct 0.7 % TA [facility] Comment: Interpretive Data Percent cell count reference ranges are not reported, since discordance with absolute values may lead to misinterpretation of CBC data. Current Interpretive Data was last revised on 2017. Testing performed by: [facility], [address] [place] [phone] Blood 06/24/2024 7:30 AM CDT 06/24/2024 7:46 AM CDT Suman Canales MD LAB BLOOD ORDER CRISTEL Final Result [facility] Department [place] [address] * (ABNORMAL) Immunoglobulin free light chains (06/24/2024 7:30 AM CDT) [place]/Lambda ratio [facility] 0.35 0.26 - 1.65 Comment: Interpretive Data The Binding Site FreeLite assay procedure was used. Results from different manufacturers or methods may not be comparable. Serial testing should be performed using the same methods and instrumentation. Current Interpretive Data was last revised on 2023. [place] free light chain [facility] 0.25(L) 0.33 - 1.94 mg/dL TA [facility] Comment: Interpretive Data The Binding Site FreeLite assay procedure was used. Results from different manufacturers or methods may not be comparable. Serial testing should be performed using the same methods and instrumentation. Current Interpretive Data was last revised on 2023. Lambda free light chain [facility] 0.72 0.57 - 2.63 mg/dL TA [facility] [...] MD LAB BLOOD ORDER CRISTEL Final Result [facility] Department [place] [address] * (ABNORMAL) CBC with auto differential (06/24/2024 7:30 AM CDT) WBC 4.09 3.80 - 9.90 K/cumm Comment:Testing performed by : [facility], [address] [place] [address] Hgb 11.5(L) 11.9 - 15.5 g/dL TA [facility] Comment:Testing performed by : [facility], [address] [place] [address] Hct 34.1(L) 35.6 - 45.5 % TA [facility] Comment:Testing performed by : [facility], [address] [place] [phone] Plt 226 150 - 400 K/cumm TA [facility] Comment:Testing performed by : [facility], [address] [place] [address] MPV 9.0 6.8 - 10.4 fL TA [facility] Comment:Testing performed by : [facility], [address] [place] [address] RBC 3.36(L) 3.90 - 5.20 M/cumm TA [facility] Comment:Testing performed by : [facility], [address] [place] [address] MCV 101.4(H) 81.3 - 96.4 fL [facility] Comment:Testing performed by : [facility], [address] [place] [address] MCH 34.3(H) 27.1 - 33.3 pg [facility] Comment:Testing performed by : [facility], [address] [place] [address] MCHC 33.8 32.3 - 35.7 g/dL TA [facility] Comment:Testing performed by : [facility], [address] [place] [address] RDW CV 13.7 11.1 - 14.9 % [facility] Comment:Testing performed by : [facility], [address] [place] [address] NRBC abs 0.00 0.00 - 0.01 K/cumm [facility] Comment:Testing performed by : [facility], [address] [place] [address] Blood 06/24/2024 7:30 AM CDT 06/24/2024 7:46 AM CDT Suman Canales MD LAB BLOOD ORDER CRISTEL Final Result [facility] Department of Laboratories [place], [place] [id number] * (ABNORMAL) Protein electrophoresis with reflex, serum with interpretation (06/24/2024 7:30 AM CDT) Protein, sr 5.9(L) 6.2 - 8.2 g/dL Albumin 4.0 3.2 - 5.0 g/dL [facility] Alpha-1 globulin 0.3 0.2 - 0.4 g/dL [facility] Alpha-2 globulin 0.8 0.5 - 1.0 g/dL [facility] Beta-1 globulin 0.4 0.3 - 0.6 g/dL [facility] Beta-2 globulin 0.2 0.2 - 0.6 g/dL [facility] Gamma globulin 0.3(L) 0.5 - 1.7 g/dL [facility] SPEP interp Please see comment [facility] Comment: Abnormal restricted peak in gamma region Quantity of restricted peak too low to quantify accurately Decreased gamma globulins Electrophoretic pattern appears similar to previous sample 05/21/2024 *See immunotyping for further information Reviewed and signed by Brayan Ireland MD 06/26/2024 Blood 06/24/2024 7:30 AM CDT 06/24/2024 8:43 AM CDT Suman Canales MD LAB BLOOD ORDER CRISTEL Final Result [facility] Department [place] [address] * Lactate dehydrogenase (LD) (06/24/2024 7:30 AM CDT) Pathologist [facility] Lactate dehydrogenase (LDH) 188 100 - 250 Units/L Blood 06/24/2024 7:30 AM CDT 06/24/2024 7:48 AM CDT Suman Canales MD LAB BLOOD ORDER CRISTEL Final Result [facility] Department [place] [address] * (ABNORMAL) IgA (06/24/2024 7:30 AM CDT) Immunoglobulin A <50(L) 70 - 400 mg/dL Blood 06/24/2024 7:30 AM CDT 06/24/2024 8:05 AM CDT Suman Canales MD LAB BLOOD ORDER CRISTEL Final Result Performing Organization Address City/[facility] Co de Phone Number [facility] [place] [address] * (ABNORMAL) IgM (06/24/2024 7:30 AM CDT) [facility] Immunoglobulin M <25(L) 40 - 230 mg/dL Blood 06/24/2024 7:30 AM CDT 06/24/2024 8:05 AM CDT Suman Canales MD LAB BLOOD ORDER CRISTEL Final Result Performing Organization Address [facility] [facility] de Phone Number [facility] [place] [address] * (ABNORMAL) IgG (06/24/2024 7:30 AM CDT) [facility] Immunoglobulin G <300(L) 700 - 1,600 mg/dL Blood 06/24/2024 7:30 AM CDT 06/24/2024 8:05 AM CDT Suman Canales MD LAB BLOOD ORDER CRISTEL Final Result Performing Organization Address [facility] [place] [address] * (ABNORMAL) Comprehensive metabolic panel (06/24/2024 7:30 AM CDT) [facility] Sodium 141 135 - 145 mmol/L Potassium, pl 4.6 3.3 - 4.9 mmol/L [facility] Chloride 105 97 - 110 mmol/L [facility] CO2 31 22 - 32 mmol/L [facility] Anion gap 5 2 - 15 mmol/L [facility] BUN 13 6 - 25 mg/dL [facility] Creatinine 0.92 0.60 - 1.10 mg/dL [facility] Glucose 100 70 - 199 mg/dL [facility] Comment: Interpretive Data Fasting glucose >/= 126 [...] 2022. Calcium 9.7 8.5 - 10.3 mg/dL [facility] Bilirubin, total 0.4 0.1 - 1.2 mg/dL [facility] Protein, pl 6.2(L) 6.5 - 8.5 g/dL [facility] Albumin 4.2 3.5 - 5.0 g/dL [facility] Alk phos 43 40 - 130 Units/L [facility] ALT 13 7 - 45 Units/L [facility] AST 23 10 - 45 Units/L [facility] Blood 06/24/2024 7:30 AM CDT 06/24/2024 7:48 AM CDT us Suman Canales MD LAB BLOOD ORDER CRISTEL Final Result Performing Organization Address City/[facility]/ZIP Co de Phone Number [facility] [place] [address] * Lactate (06/14/2024 1:20 AM CDT) Pathologist [facility] Lactate 1.1 0.7 - 2.0 mmol/L Blood 06/14/2024 1:20 AM CDT 06/14/2024 1:36 AM CDT us José Miguel Hernandez MD LAB BLOOD ORDERABLES Yulia l Result [facility] [place] [address] * (ABNORMAL) Blood gas, venous (06/14/2024 1:20 AM CDT) pH, Venous 7.48(H) 7.32 - 7.43 PCO2, Venous 31(L) 40 - 50 mmHg [facility] PO2, Venous 30 mmHg [facility] Comment: Interpretive Data No Reference Range Established Current Interpretive Data was last revised on 2017. HCO3 Venous, Calculated 24 20 - 30 mmol/L [facility] BE, venous 0 mmol/L [facility] Comment: Interpretive Data No Reference Range Established Current Interpretive Data was last revised on 2017. Blood 06/14/2024 1:20 AM CDT 06/14/2024 1:28 AM CDT José Miguel Hernandez MD LAB BLOOD ORDERABLES Yulia l Result Performing Organization Address [facility] Co de Phone Number [facility] Department [place] [address] * Troponin I high-sensitivity 4-hour (06/14/2024 1:16 AM CDT) Pathologist [facility] Trop I hs 7 <=17 ng/L Comment: Interpretive Data For further [facility] resources including the diagnostic algorithm and an aid in interpretation, copy and paste this link: [email or web address] Current Interpretive Data last revised 2019. Trop I hs delta 1 ng/L [facility] Trop I hs interp Insignificant [facility] Blood 06/14/2024 1:16 AM CDT 06/14/2024 1:35 AM CDT Vlad Horton MD LAB BLOOD ORDERABLES F inal Result Performing Organization Address [facility]/ZIP Co de Phone Number [facility] Department [place] [address] * XR Chest PA Lateral 2 Views [...] BLOOD ORDERABLES Final Result Performing Organization Address City/[facility]/ZIP Co de Phone Number [facility] [place] [address] * eGFR (06/13/2024 8:47 PM CDT) eGFR [...] BLOOD ORDERABLES Final Result Performing Organization Address City/[facility]/ZIP Co de Phone Number [facility] [place] [address] * (ABNORMAL) Differential, auto (06/13/2024 8:47 PM CDT) Neutrophil abs 3.42 1.50 - 6.50 K/cumm Imm gran abs 0.02 0.00 - 0.10 K/cumm [facility] Lymphocyte abs 0.68(L) 0.80 - 3.30 K/cumm [facility] Monocyte abs 0.81(H) 0.20 - 0.80 K/cumm [facility] Eosinophil abs 0.16 0.00 - 0.50 K/cumm [facility] Basophil abs 0.03 0.00 - 0.10 K/cumm [facility] Neutrophil pct 66.8 % [facility] Comment: Interpretive Data Percent cell count reference ranges are not reported, since discordance with absolute values may lead to misinterpretation of CBC data. Current Interpretive Data was last revised on 2017. Imm gran pct 0.4 % [facility] Comment: Interpretive Data Percent cell count reference ranges are not reported, since discordance with absolute values may lead to misinterpretation of CBC data. Current Interpretive Data was last revised on 2017. Lymphocyte pct 13.3 % [facility] Comment: Interpretive Data Percent cell count reference ranges are not reported, since discordance with absolute values may lead to misinterpretation of CBC data. Current Interpretive Data was last revised on 2017. Monocyte pct 15.8 % [facility] Comment: Interpretive Data Percent cell count reference ranges are not reported, since discordance with absolute values may lead to misinterpretation of CBC data. Current Interpretive Data was last revised on 2017. Eosinophil pct 3.1 % [facility] Comment: Interpretive Data Percent cell count reference ranges are not reported, since discordance with absolute values may lead to misinterpretation of CBC data. Current Interpretive Data was last revised on 2017. Basophil pct 0.6 % [facility] Comment: Interpretive Data Percent cell count reference ranges are not reported, since discordance with absolute values may lead to misinterpretation of CBC data. Current Interpretive Data was last revised on 2017. Blood 06/13/2024 8:47 PM CDT 06/13/2024 9:03 PM CDT us Krista Borden MD LAB BLOOD ORDERABLES Final Result [facility] Department [place] [address] * (ABNORMAL) CBC with auto differential (06/13/2024 8:47 PM CDT) [facility] WBC 5.12 3.80 - 9.90 K/cumm Hgb 13.0 11.9 - 15.5 g/dL [facility] Hct 37.7 35.6 - 45.5 % [facility] Plt 226 150 - 400 K/cumm [facility] MPV 10.8 9.1 - 12.3 fL [facility] RBC 3.78(L) 3.90 - 5.20 M/cumm [facility] MCV 99.7(H) 81.3 - 96.4 fL [facility] MCH 34.4(H) 27.1 - 33.3 pg [facility] MCHC 34.5 32.3 - 35.7 g/dL [facility] RDW CV 13.1 11.1 - 14.9 % [facility] RDW SD 47.9 35.7 - 48.1 fL [facility] NRBC abs 0.00 0.00 - 0.01 K/cumm [facility] Blood 06/13/2024 8:47 PM CDT 06/13/2024 9:03 PM CDT us Krista Borden MD LAB BLOOD ORDERABLES Final Result [facility] Department [place] [address] * Comprehensive metabolic panel (06/13/2024 8:47 PM CDT) [facility] Sodium 144 135 - 145 mmol/L Potassium, pl 4.1 3.3 - 4.9 mmol/L [facility] Chloride 107 97 - 110 mmol/L [facility] CO2 26 22 - 32 mmol/L [facility] Anion gap 11 2 - 15 mmol/L [facility] BUN 15 6 - 25 mg/dL [facility] Creatinine 0.91 0.60 - 1.10 mg/dL [facility] Glucose 86 70 - 199 mg/dL [facility] Comment: Interpretive Data Fasting glucose >/= 126 [...] 2022. Calcium 9.6 8.5 - 10.3 mg/dL [facility] Bilirubin, total 0.3 0.1 - 1.2 mg/dL [facility] Protein, pl 6.8 6.5 - 8.5 g/dL [facility] Albumin 4.4 3.5 - 5.0 g/dL [facility] Alk phos 45 40 - 130 Units/L [facility] ALT 20 7 - 45 Units/L [facility] AST 39 10 - 45 Units/L [facility] Blood 06/13/2024 8:47 PM CDT 06/13/2024 9:03 PM CDT us Krista Borden MD LAB BLOOD ORDERABLES Final Result [facility] [place] [address] * ECG 12-LEAD (06/13/2024 8:37 PM CDT) Narrative [facility] - 06/13/2024 8:37 PM CDT Isabella Foley [...] MD ECG ORDERABLES Final Resu lt [facility] * (ABNORMAL) Respiratory pathogen panel Nasopharyngeal (06/13/2024 8:35 PM CDT) Pathologist [facility] Influenza A RNA Not Detected Not Detected Influenza B RNA Not Detected Not Detected [facility] RSV RNA Not Detected Not Detected [facility] COVID-19 RNA Not Detected Not Detected [facility] Coronavirus 229E RNA Not Detected Not Detected [facility] Coronavirus HKU1 RNA Not Detected Not Detected [facility] Coronavirus NL63 RNA Not Detected Not Detected [facility] Coronavirus OC43 RNA Not Detected Not Detected [facility] Adenovirus DNA Not Detected Not Detected [facility] Metapneumovirus RNA Not Detected Not Detected [facility] Rhinovirus/Enterov irus RNA Detected(A) Not Detected [facility] Parainfluenza 1 RNA Not Detected Not Detected [facility] Parainfluenza 2 RNA Not Detected Not Detected [facility] Parainfluenza 3 RNA Not Detected Not Detected [facility] Parainfluenza 4 RNA Not Detected Not Detected [facility] B. pertussis DNA Not Detected Not Detected [facility] B. parapertussis DNA Not Detected Not Detected [facility] C. pneumoniae DNA Not Detected Not Detected [facility] M. pneumoniae DNA Not Detected Not Detected [facility] Nasopharyngeal 06/13/2024 8: 35 PM CDT 06/13/2024 8:43 PM CDT [facility] - 06/13/2024 9:44 PM CDT Is the Patient experiencing symptoms consistent with COVID?->Yes Surveillance testing for transplant patient?->No Interpretive Data The Node1 FilmArray Respiratory Panel (RP2.1) assay is a [...] assay has FDA clearance for testing of IT SUPPORT TECHNICIAN swabs. The performance of additional specimen types has been assessed by the performing laboratory. The performance characteristics of this assay have been determined by [facility] Molecular Infectious Disease Laboratory. Current interpretive data was last revised on 21. Krista Borden MD LAB MICROBIOLOGY - GENERAL ORDERABLES Final Result Performing Organization Address City/[facility] Co de Phone Number [facility] Department [place] [address] * Immunotyping, serum with interpretation (05/20/2024 9:18 AM CDT) Pathologist [facility] Immunosubtraction Please see comment Comment: SMALL IGG KAPPA PARAPROTEIN Reviewed and signed by Vipul Stuart MD, PhD 05/21/2024 Blood 05/20/2024 9:18 AM CDT 05/20/2024 10:30 AM CDT Bailee Mares IT SUPPORT TECHNICIAN LAB BLOOD ORDERABLES Yulia l Result Performing Organization Address City/[facility] Co de Phone Number [facility] Department [place] [address] * eGFR (05/20/2024 9:18 AM CDT) Pathologist [...] CDT 05/20/2024 9:28 AM CDT Bailee Mares IT SUPPORT TECHNICIAN LAB BLOOD ORDERABLES Yulia l Result [facility] Department of Laboratories [place], [place] [id number] * (ABNORMAL) Differential, auto (05/20/2024 9:18 AM CDT) Neutrophil abs 5.1 1.5 - 6.5 K/cumm Comment:Testing performed by : [facility], [address] [place] [phone] Lymphocyte abs 0.4(L) 0.8 - 3.3 K/cumm [facility] Comment:Testing performed by : [facility], [address] [place] [phone] Monocyte abs 0.7 0.2 - 0.8 K/cumm [facility] Comment:Testing performed by : [facility], [address] [place] [phone] Eosinophil abs 0.1 0.0 - 0.5 K/cumm [facility] Comment:Testing performed by : [facility], [address] [place] [phone] Basophil abs 0.1 0.0 - 0.1 K/cumm [facility] Comment:Testing performed by : [facility], [address] [place] [phone] Neutrophil pct 79.1 % [facility] Comment: Interpretive Data Percent cell count reference ranges are not reported, since discordance with absolute values may lead to misinterpretation of CBC data. Current Interpretive Data was last revised on 2017. Testing performed by: [facility], [address] [place] [phone] Lymphocyte pct 5.5 % [facility] Comment: Interpretive Data Percent cell count reference ranges are not reported, since discordance with absolute values may lead to misinterpretation of CBC data. Current Interpretive Data was last revised on 2017. Testing performed by: [facility], [address] [place] [phone] Monocyte pct 11.7 % [facility] Comment: Interpretive Data Percent cell count reference ranges are not reported, since discordance with absolute values may lead to misinterpretation of CBC data. Current Interpretive Data was last revised on 2017. Testing performed by: [facility], [address] [place] [phone] Eosinophil pct 1.5 % [facility] Comment: Interpretive Data Percent cell count reference ranges are not reported, since discordance with absolute values may lead to misinterpretation of CBC data. Current Interpretive Data was last revised on 2017. Testing performed by: [facility], [address] [place] [phone] Basophil pct 2.2 % [facility] Comment: Interpretive Data Percent cell count reference ranges are not reported, since discordance with absolute values may lead to misinterpretation of CBC data. Current Interpretive Data was last revised on 2017. Testing performed by: [facility], [address] [place] [phone] Blood 05/20/2024 9:18 AM CDT 05/20/2024 9:25 AM CDT Bailee Mares IT SUPPORT TECHNICIAN LAB BLOOD ORDERABLES Yulia l Result Performing Organization Address [facility] Co de Phone Number TA [facility] Department [place] [address] * (ABNORMAL) Immunoglobulin free light chains (05/20/2024 9:18 AM CDT) Pathologist [facility] [place]/Lambda ratio [facility] 0.85 0.26 - 1.65 Comment: Interpretive Data The Binding Site FreeLite assay procedure was used. Results from different manufacturers or methods may not be comparable. Serial testing should be performed using the same methods and instrumentation. Current Interpretive Data was last revised on 2023. [place] free light chain [facility] 0.33 0.33 - 1.94 mg/dL [facility] Comment: Interpretive Data The Binding Site FreeLite assay procedure was used. Results from different manufacturers or methods may not be comparable. Serial testing should be performed using the same methods and instrumentation. Current Interpretive Data was last revised on 2023. Lambda free light chain [facility] 0.39(L) 0.57 - 2.63 mg/dL [facility] Comment: Interpretive Data The Binding Site FreeLite assay procedure was used. Results from different manufacturers or methods may not be comparable. Serial testing should be performed using the same methods and instrumentation. Current Interpretive Data was last revised on 2023. Blood 05/20/2024 9:18 AM CDT 05/20/2024 10:30 AM CDT Bailee Mares IT SUPPORT TECHNICIAN LAB BLOOD ORDERABLES Yulia l Result Performing Organization Address City/[facility]/ZIP Co de Phone Number [facility] Department [place] [address] * (ABNORMAL) CBC with auto differential (05/20/2024 9:18 AM CDT) [facility] WBC 6.4 3.8 - 9.9 K/cumm Comment:Testing performed by : [facility], [address] [place] [address] Hgb 12.1 11.9 - 15.5 g/dL [facility] Comment:Testing performed by : [facility], [address] [place], [place] [phone] Hct 35.9 35.6 - 45.5 % [facility] Comment:Testing performed by : [facility], [address] [place], [place] [phone] Plt 230 150 - 400 K/cumm [facility] Comment:Testing performed by : [facility], [address] [place], [place] [phone] MPV 9.0 6.8 - 10.4 fL [facility] Comment:Testing performed by : [facility], [address] [place], [place] [phone] RBC 3.51(L) 3.90 - 5.20 M/cumm [facility] Comment:Testing performed by : [facility], [address] [place] [address] MCV 102.1(H) 81.3 - 96.4 fL [facility] Comment:Testing performed by : [facility], [address] [place] [address] MCH 34.3(H) 27.1 - 33.3 pg [facility] Comment:Testing performed by : [facility], [address] [place] [address] MCHC 33.6 32.3 - 35.7 g/dL [facility] Comment:Testing performed by : [facility], [address] [place] [address] RDW CV 14.6 11.1 - 14.9 % [facility] Comment:Testing performed by : [facility], [address] [place] [address] NRBC abs 0.00 0.00 - 0.01 K/cumm [facility] Comment:Testing performed by : [facility], [address] [place] [address] Blood 05/20/2024 9:18 AM CDT 05/20/2024 9:25 AM CDT Bailee Mares IT SUPPORT TECHNICIAN LAB BLOOD ORDERABLES Yulia l Result Performing Organization Address City/[facility]/ZIP Co de Phone Number [facility] [place] [employer] [place] [address] * (ABNORMAL) Protein electrophoresis with reflex, serum with interpretation (05/20/2024 9:18 AM CDT) Pathologist [facility] Protein, sr 6.2 6.2 - 8.2 g/dL Albumin 4.2 3.2 - 5.0 g/dL [facility] Alpha-1 globulin 0.3 0.2 - 0.4 g/dL [facility] Alpha-2 globulin 0.9 0.5 - 1.0 g/dL [facility] Beta-1 globulin 0.4 0.3 - 0.6 g/dL [facility] Beta-2 globulin 0.2 0.2 - 0.6 g/dL [facility] Gamma globulin 0.2(L) 0.5 - 1.7 g/dL [facility] SPEP interp Please see comment [facility] Comment: No apparent monoclonal peak Decreased gamma globulins Electrophoretic pattern appears similar to previous sample 04/23/2024 See immunotyping for further information Reviewed and signed by Vipul Stuart MD, PhD 05/21/2024 Blood 05/20/2024 9:18 AM CDT 05/20/2024 10:30 AM CDT Bailee Mares IT SUPPORT TECHNICIAN LAB BLOOD ORDERABLES Yulia l Result Performing Organization Address [facility]/ZIP Co de Phone Number [facility] [place] [address] * Lactate dehydrogenase (LD) (05/20/2024 9:18 AM CDT) Pathologist [facility] Lactate dehydrogenase (LDH) 182 100 - 250 Units/L Blood 05/20/2024 9:18 AM CDT 05/20/2024 9:28 AM CDT Bailee Mares IT SUPPORT TECHNICIAN LAB BLOOD ORDERABLES Yulia l Result Performing Organization Address [facility] Co de Phone Number [facility] [place] [address] * (ABNORMAL) IgA (05/20/2024 9:18 AM CDT) Immunoglobulin A <50(L) 70 - 400 mg/dL Blood 05/20/2024 9:18 AM CDT 05/20/2024 10:03 AM CDT Bailee Mares LAB BLOOD ORDERABLES Yulia l Result Performing Organization Address [facility] de Phone Number [facility] [place] [address] * (ABNORMAL) IgM (05/20/2024 9:18 AM CDT) Immunoglobulin M <25(L) 40 - 230 mg/dL Blood 05/20/2024 9:18 AM CDT 05/20/2024 10:03 AM CDT Bailee Mares LAB BLOOD ORDERABLES Yulia l Result Performing Organization Address [facility] de Phone Number [facility] [employer] [place] [address] * (ABNORMAL) IgG (05/20/2024 9:18 AM CDT) Immunoglobulin G <300(L) 700 - 1,600 mg/dL Blood 05/20/2024 9:18 AM CDT 05/20/2024 10:03 AM CDT Bailee Mares IT SUPPORT TECHNICIAN LAB BLOOD ORDERABLES Yulia lobo Result [facility] [place] [address] * Comprehensive metabolic panel (05/20/2024 9:18 AM CDT) Sodium 142 135 - 145 mmol/L Potassium, pl 4.3 3.3 - 4.9 mmol/L [facility] Chloride 106 97 - 110 mmol/L [facility] CO2 26 22 - 32 mmol/L [facility] Anion gap 10 2 - 15 mmol/L [facility] BUN 16 6 - 25 mg/dL [facility] Creatinine 0.82 0.60 - 1.10 mg/dL [facility] Glucose 152 70 - 199 mg/dL [facility] Comment: Interpretive Data Fasting glucose >/= 126 [...] 2022. Calcium 9.3 8.5 - 10.3 mg/dL [facility] Bilirubin, total 0.3 0.1 - 1.2 mg/dL [facility] Protein, pl 6.5 6.5 - 8.5 g/dL [facility] Albumin 4.2 3.5 - 5.0 g/dL [facility] Alk phos 71 40 - 130 Units/L [facility] ALT 11 7 - 45 Units/L [facility] AST 19 10 - 45 Units/L [facility] Blood 05/20/2024 9:18 AM CDT 05/20/2024 9:28 AM CDT Bailee Mares NP LAB BLOOD ORDERABLES Yulia l Result TA [facility] [place] [address] * Immunotyping, serum with interpretation (04/22/2024 11:55 AM GROUP UNDERWRITER) Immunosubtraction Please see comment Comment: NO PARAPROTEIN DETECTED Reviewed and signed by Brayan Ireland MD 04/23/2024 Blood 04/22/2024 11:5 5 AM GROUP UNDERWRITER 04/22/2024 1:43 PM GROUP UNDERWRITER Suman Canales MD LAB BLOOD ORDER CRISTEL Final Result Performing Organization Address [facility] Co de Phone Number TA [facility] [place] [address] * eGFR (04/22/2024 11:55 AM GROUP UNDERWRITER) eGFR 65 >=60 mL/min/1. 73 m2 Comment: [...] reviewed 2020. Blood 04/22/2024 11:5 5 AM GROUP UNDERWRITER 04/22/2024 12:11 PM GROUP UNDERWRITER us Suman Canales MD LAB BLOOD ORDER CRISTEL Final Result TA [facility] Department [place] [address] * (ABNORMAL) Differential, auto (04/22/2024 11:55 AM GROUP UNDERWRITER) Neutrophil abs 4.4 1.5 - 6.5 K/cumm Comment:Testing performed by : [facility], [address] [place] [phone] Lymphocyte abs 0.5(L) 0.8 - 3.3 K/cumm [facility] Comment:Testing performed by : [facility], [address] [place] [phone] Monocyte abs 0.5 0.2 - 0.8 K/cumm [facility] Comment:Testing performed by : [facility], [address] [place], [place] [phone] Eosinophil abs 0.1 0.0 - 0.5 K/cumm CERNER BJ Comment:Testing performed by : [facility], [address] [place] [phone] Basophil abs 0.0 0.0 - 0.1 K/cumm CERNER BJ Comment:Testing performed by : [facility], [address] [place] [phone] Neutrophil pct 79.7 % CERNER BJ Comment: Interpretive Data Percent cell count reference ranges are not reported, since discordance with absolute values may lead to misinterpretation of CBC data. Current Interpretive Data was last revised on 2017. Testing performed by: [facility], [address] [place] [phone] Lymphocyte pct 8.2 % CERNER BJ Comment: Interpretive Data Percent cell count reference ranges are not reported, since discordance with absolute values may lead to misinterpretation of CBC data. Current Interpretive Data was last revised on 2017. Testing performed by: [facility], [address] [place] [address] [place] [phone] Monocyte pct 9.5 % TA KENDRICK Comment: Interpretive Data Percent cell count reference ranges are not reported, since discordance with absolute values may lead to misinterpretation of CBC data. Current Interpretive Data was last revised on 2017. Testing performed by: [facility], [address] [place] [phone] Eosinophil pct 2.3 % TA KENDRICK Comment: Interpretive Data Percent cell count reference ranges are not reported, since discordance with absolute values may lead to misinterpretation of CBC data. Current Interpretive Data was last revised on 2017. Testing performed by: [facility], [address] [place] [phone] Basophil pct 0.3 % TA KENDRICK Comment: Interpretive Data Percent cell count reference ranges are not reported, since discordance with absolute values may lead to misinterpretation of CBC data. Current Interpretive Data was last revised on 2017. Testing performed by: [facility], [address] [place] [phone] Blood 04/22/2024 11:5 5 AM GROUP UNDERWRITER 04/22/2024 12:11 PM GROUP UNDERWRITER Suman Canales MD LAB BLOOD ORDER CRISTEL Final Result [facility] Department [place] [address] * (ABNORMAL) Immunoglobulin free light chains (04/22/2024 11:55 AM GROUP UNDERWRITER) [place]/Lambda ratio [facility] 1.08 0.26 - 1.65 Comment: Interpretive Data The Binding Site FreeLite assay procedure was used. Results from different manufacturers or methods may not be comparable. Serial testing should be performed using the same methods and instrumentation. Current Interpretive Data was last revised on 2023. [place] free light chain [facility] 0.39 0.33 - 1.94 mg/dL TA [facility] Comment: Interpretive Data The Binding Site FreeLite assay procedure was used. Results from different manufacturers or methods may not be comparable. Serial testing should be performed using the same methods and instrumentation. Current Interpretive Data was last revised on 2023. Lambda free light chain [facility] 0.36(L) 0.57 - 2.63 mg/dL TA KENDRICK Comment: Interpretive Data The Binding Site FreeLite assay procedure was used. Results from different manufacturers or methods may not be comparable. Serial testing should be performed using the same methods and instrumentation. Current Interpretive Data was last revised on 2023. Blood 04/22/2024 11:5 5 AM GROUP UNDERWRITER 04/22/2024 1:42 PM GROUP UNDERWRITER Suman Canales MD LAB BLOOD ORDER CRISTEL Final Result TA [facility] Department [place] [address] * (ABNORMAL) CBC with auto differential (04/22/2024 11:55 AM GROUP UNDERWRITER) WBC 5.6 3.8 - 9.9 K/cumm Comment:Testing performed by : [facility], [address] [place] [address] Hgb 12.2 11.9 - 15.5 g/dL TA [facility] Comment:Testing performed by : [facility], [address] [place] [address] Hct 35.8 35.6 - 45.5 % TA KENDRICK Comment:Testing performed by : [facility], [address] [place] [address] Plt 250 150 - 400 K/cumm TA KENDRICK Comment:Testing performed by : [facility], [address] [place] [address] MPV 9.3 6.8 - 10.4 fL TA KENDRICK Comment:Testing performed by : [facility], [address] [place] [address] RBC 3.50(L) 3.90 - 5.20 M/cumm TA KENDRICK Comment:Testing performed by : [facility], [address] [place], [place] [phone] MCV 102.2(H) 81.3 - 96.4 fL TA KENDRICK Comment:Testing performed by : [facility], [address] [place], [place] [phone] MCH 34.7(H) 27.1 - 33.3 pg TA KENDRICK Comment:Testing performed by : [facility], [address] [place], [place] [phone] MCHC 34.0 32.3 - 35.7 g/dL TA KENDRICK Comment:Testing performed by : [facility], [address] [place], [place] [phone] RDW CV 14.5 11.1 - 14.9 % TA KENDRICK Comment:Testing performed by : [facility], [address] [place], [place] [phone] NRBC abs 0.00 0.00 - 0.01 K/cumm TA KENDRICK Comment:Testing performed by : [facility], [address] [place], [place] [phone] Blood 04/22/2024 11:5 5 AM GROUP UNDERWRITER 04/22/2024 12:11 PM GROUP UNDERWRITER Suman Canales MD LAB BLOOD ORDER CRISTEL Final Result TA KENDRICK [facility] Department [place] [address] * (ABNORMAL) Protein electrophoresis with reflex, serum with interpretation (04/22/2024 11:55 AM GROUP UNDERWRITER) Protein, sr 6.0(L) 6.2 - 8.2 g/dL Albumin 4.3 3.2 - 5.0 g/dL TA KENDRICK Alpha-1 globulin 0.2 0.2 - 0.4 g/dL TA KENDRICK Alpha-2 globulin 0.7 0.5 - 1.0 g/dL [facility] Beta-1 globulin 0.4 0.3 - 0.6 g/dL [facility] Beta-2 globulin 0.2 0.2 - 0.6 g/dL [facility] Gamma globulin 0.2(L) 0.5 - 1.7 g/dL [facility] SPEP interp Please see comment [facility] Comment: Possible abnormal restricted peak in gamma region Decreased gamma globulins Electrophoretic pattern appears similar to previous sample 02/19/24 See immunotyping for further information Reviewed and signed by Brayan Ireland MD 04/23/2024 Blood 04/22/2024 11:5 5 AM GROUP UNDERWRITER 04/22/2024 1:43 PM GROUP UNDERWRITER Suman Canales MD LAB BLOOD ORDER CRISTEL Final Result Performing Organization Address [facility] de Phone Number [facility] Department [place] [address] * Lactate dehydrogenase (LD) (04/22/2024 11:55 AM GROUP UNDERWRITER) Lactate dehydrogenase (LDH) 207 100 - 250 Units/L Blood 04/22/2024 11:5 5 AM GROUP UNDERWRITER 04/22/2024 12:11 PM GROUP UNDERWRITER Suman Canales MD LAB BLOOD ORDER CRISTEL Final Result Performing Organization Address [facility] de Phone Number [facility] Department [place] [address] * (ABNORMAL) IgA (04/22/2024 11:55 AM GROUP UNDERWRITER) Immunoglobulin A <50(L) 70 - 400 mg/dL Blood 04/22/2024 11:5 5 AM GROUP UNDERWRITER 04/22/2024 12:30 PM GROUP UNDERWRITER Suman Canales MD LAB BLOOD ORDER CRISTEL Final Result Performing Organization Address City/[facility] Co de Phone Number [facility] Department [place] [address] * (ABNORMAL) IgM (04/22/2024 11:55 AM GROUP UNDERWRITER) [facility] Immunoglobulin M <25(L) 40 - 230 mg/dL Blood 04/22/2024 11:5 5 AM GROUP UNDERWRITER 04/22/2024 12:30 PM GROUP UNDERWRITER Suman Canales MD LAB BLOOD ORDER CRISTEL Final Result Performing Organization Address [facility] Co de Phone Number [facility] [address] * (ABNORMAL) IgG (04/22/2024 11:55 AM GROUP UNDERWRITER) [facility] Immunoglobulin G <300(L) 700 - 1,600 mg/dL Blood 04/22/2024 11:5 5 AM GROUP UNDERWRITER 04/22/2024 12:30 PM GROUP UNDERWRITER Suman Canales MD LAB BLOOD ORDER CRISTEL Final Result Performing Organization Address [facility] de Phone Number [facility] Department [place] [address] * (ABNORMAL) Comprehensive metabolic panel (04/22/2024 11:55 AM GROUP UNDERWRITER) [facility] Sodium 141 135 - 145 mmol/L Potassium, pl 4.8 3.3 - 4.9 mmol/L [facility] Chloride 103 97 - 110 mmol/L [facility] CO2 30 22 - 32 mmol/L [facility] Anion gap 8 2 - 15 mmol/L [facility] BUN 23 6 - 25 mg/dL [facility] Creatinine 0.89 0.60 - 1.10 mg/dL [facility] Glucose 91 70 - 199 mg/dL [facility] Comment: Interpretive Data Fasting glucose >/= 126 [...] Calcium 10.1 8.5 - 10.3 mg/dL CERNER [facility] Bilirubin, total 0.2 0.1 - 1.2 mg/dL CERNER [facility] Protein, pl 6.3(L) 6.5 - 8.5 g/dL CERNER BJ Albumin 4.3 3.5 - 5.0 g/dL CERNER [facility] Alk phos 63 40 - 130 Units/L CERNER [facility] ALT 12 7 - 45 Units/L CERNER BJ AST 23 10 - 45 Units/L CERNER [facility] Blood 04/22/2024 11:5 5 AM GROUP UNDERWRITER 04/22/2024 12:11 PM GROUP UNDERWRITER Suman Canales MD LAB BLOOD ORDER CRISTEL Final Result [facility] Department [place] [address] from Last 3 Months Insurance MEDICARE BLUE CROSS MEDICARE SUPPLEMENT MEDICARE [facility] MEDICARE MEDICARE [facility] MEDICARE [facility] MEDICARE SUPPLEMENT Advance Directives For more information, please contact: [phone] * Full Code (Latest Code Status on [...] 11:50 PM 01/19/2023 9:49 PM Care Teams Buggy Driver Relationship Specialty Start Date End Date Low Alvarez MD [address] [place] [address] PCP - General Internal Medicine 10/22/19 Trae Thompson MD Surgeon Colon and Rectal Surgery 06/25/19 Onofre James MD PhD Consulting Physician Gastroenterology 06/25/19 Brown Handley MD [address] [place] [address] Service Observer Chief Gastroenterology 12/10/19 Juan Diego Etienne MD [address] [place] [address] Referring Physician Cardiology 01/04/22
--- OUTSIDE RECORDS SUMMARY | 2024-07-03 18:56 | XMS_ITS | Clinical Summary ---
Author Organization [facility] Address [address] [place] [address] Care Team Providers Care Bereavement Counselor Name Role Phone Low Alvarez MD Primary Care Provider [phone] Source Comments [facility] Affiliates and Associated Physician Practices is amultiple site organization consisting of ambulatory clinics and hospital sitesin [place], [place], [place] and [place]. This disclosure is being madepursuant to the Care Everywhere program and may not contain all information available regarding this patient. Last updated 17.[facility] eyeQ Allergies Active Allergy Reactions Criticality Noted Date [...] by mouth. [place] [address] Units by mouth every 7 days. Active [...] on file Legal Sex Female 6:12 AM ASSISTED LIVING HOME DIRECTOR Gender Identity Not on file Sexual Orientation Not on file Last Filed Vital Signs Vital Sign Reading Time Taken Comments Blood Pressure 142/74 01/20/2013 2:03 PM ASSISTED LIVING HOME DIRECTOR Pulse 98 01/20/2013 2:03 PM ASSISTED LIVING HOME DIRECTOR Temperature 36.6 C (97.9 F) 01/20/2013 2:03 PM ASSISTED LIVING HOME DIRECTOR Respiratory Rate 20 01/20/2013 2:03 PM ASSISTED LIVING HOME DIRECTOR Oxygen Saturation 98% 07/21/2009 12:30 PM CDT Inhaled Oxygen Concentration - - Weight 66.9 kg (147 lb 6.4 oz) 01/20/2013 2:03 P M ASSISTED LIVING HOME DIRECTOR Height 152.4 cm (5') 01/20/2013 2:03 PM ASSISTED LIVING HOME DIRECTOR Body Mass Index 28.79 01/20/2013 2:03 PM ASSISTED LIVING HOME DIRECTOR Plan of Treatment Health Maintenance Due Date [...] age to complete this topic Care Teams Bereavement Counselor Relationship Specialty Start Date End Date Low Alvarez MD [address] [place] [address] PCP - General 07/21/09
--- OUTSIDE RECORDS SUMMARY | 2024-07-03 18:56 | XMS_ITS ---
Author Organization [facility] Address [address] [place] [address] Phone Care Team Providers Care Optometric Aide Name Role Phone Low Alvarez MD Primary Care Provider + Active Problems Patient Care Coordination No te Formatting of this note migh t be different from the original. Primary Care: Low Alvarez MD Referring Provider: No referring provider defined for this encounter. 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 Imaging performed [...] IIB [] III [] IV ER: Positive SC: Positive Kaq3Yee: Negative Surgery: [x] Yes [] No Surgery [...] 3.5mm which were intermediate grade with a Bryan score of 6 out of 9, margins [...] diseases and does not alter medical intervention. [employer] has a variant classification program which performs [...] other tests as indicated on each visit WAX BLEACHER Continue your yearly visit. *Physical exam and other tests (Pap test) as indicated on each visit. Please continue to see your primary care physician/WAX BLEACHER for all general health care recommended for a female your age. Possible late and/or termite control servicer effects that someone with this type of [...] scheduled for 02/08/2016 at 11:[address] [facility] 2) Follow up with Dr. [...] Received flu shot 13) [employer] at local [facility] REFERRALS [] Star [] [facility] Integrative Therapy [] [facility] Pastoral Services [employer] at the [facility] [] Other (Specify): ADDITIONAL RESOURCES Patients may have many questions and concerns after their cancer treatment ends. A list of local resources as provided below to assist you. [facility] cancer information center: Italian Cancer Society (ACS): www.acs.org National Cancer Webster (NCI): www.cancer.gov Italian Society of clinical oncology (ASCO): www.cancer.net Komen: www.komen.org [employer]: www.ReaLynctrong[employer] Radiation therapy: www.rtanswers.org Patient signature: Eva/YVES/NAKUL signature: [...]
--- OUTSIDE RECORDS SUMMARY | 2024-07-03 18:56 | XMS_ITS | Encounter Summary ---
Author Organization [facility] Healthcare Address [address] [place] [address] Care Team Providers Care Gluer And Wedger Name Role Phone Trae Thompson MD Unavailable [phone] Onofre James MD PhD Unavailable [phone] Low Alvarez MD Primary Care Provider [phone] Brown Handlye MD Unavailable Juan Diego Etienne MD Unavailable [phone] Encounter Details Date Type Department Care Team (Late st Contact Info) Description 10/29/2019 Telephone [facility] [address] [place] [address] Hanna Alves, RT Social History Tobacco Use [...] on file Legal Sex Female 10:03 AM TAILINGS DAM PUMPER Gender Identity Female 11/27/2023 9:47 AM CDT Sexual Orientation Not on file documented as of this encounter Plan of Treatment Not on file documented as of this encounter Visit Diagnoses Not on filedocumented in this encounter Additional Health Concerns Infection Onset Date Last Indicated Resolved Time COVID: Suspected 04/10/2022 04/10/2022 04/10/2022 11:18 PM TAILINGS DAM PUMPER COVID: Suspected 05/28/2022 05/28/2022 05/28/2022 8:39 AM CDT COVID: Suspected 12/16/2022 12/16/2022 12/16/2022 6:32 PM CDT COVID: Suspected 01/03/2023 01/03/2023 01/03/2023 3:18 PM TAILINGS DAM PUMPER COVID19 01/03/2023 01/03/2023 01/13/2023 3:05 AM TAILINGS DAM PUMPER COVID: Recovered Comment:01/14/2023 IP Review: MD team believes patient has not cleared original infection. Fabby Rodrigues RN Added based on recent COVID infection. 01/13/2023 01/13/2023 01/14/2023 9:[address] COVID: Suspected 01/13/2023 01/14/2023 01/14/2023 3:12 AM TAILINGS DAM PUMPER COVID19 01/14/2023 01/14/2023 01/29/2023 3:06 AM TAILINGS DAM PUMPER COVID: Recovered Comment:Added based on recent COVID infection. 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 02/26/2023 08/25/2023 3:05 AM CDT COVID: Suspected 07/25/2023 07/25/2023 07/25/2023 6:35 PM CDT COVID: Suspected 06/13/2024 06/13/2024 06/13/2024 9:45 PM CDT Rhino/Enterovirus 06/13/2024 06/13/2024 06/20/2024 3:06 AM CDT documented as of this encounter Care Teams Gluer And Wedger Relationship Specialty Start Date End Date Low Alvarez MD [address] [place] [address] PCP - General Internal Medicine 10/22/19 Trae Thompson MD Surgeon Colon and Rectal Surgery 06/25/19 Onofre James MD PhD Consulting Physician Gastroenterology 06/25/19 Brown Handley MD [address] [place] [address] Specimen Processor Gastroenterology 12/10/19 Juan Diego Etienne MD [address] [place] [address] Referring Physician Cardiology 01/04/22 documented as of this encounter
--- OUTSIDE RECORDS SUMMARY | 2024-07-03 18:56 | XMS_ITS | Encounter Summary ---
Author Organization [facility] Healthcare Address [address] [place] [address] Care Team Providers Care Millinery Blocker Name Role Phone Low Alvarez MD Primary Care Provider [phone] Trae Thompson MD Unavailable Onofre James MD PhD Unavailable Low Alvarez MD Primary Care Provider Brown Handley MD Unavailable [phone] Juan Diego Etienne MD Unavailable [phone] Encounter Details Date Type Department Care Team (Late st Contact Info) Description 09/10/2019 Telephone [facility] ([facility]) [facility] [place], [place] [id number] Aileen Johnston MD [facility] [address] [place] [address] Social History Tobacco Use Types Packs/Day Years Used Date Smoking Tobacco: Never Comments No Sex and Gender Information Value Date Recorded Sex Assigned at Not on file Legal Sex Female 10:03 AM HEAD OF MATHEMATICS Gender Identity Female 11/27/2023 9:47 AM CDT Sexual Orientation Not on file documented as of this encounter Plan of Treatment Not on file documented as of this encounter Visit Diagnoses Not on filedocumented in this encounter Additional Health Concerns Infection Onset Date Last Indicated Resolved Time COVID: Suspected 04/10/2022 04/10/2022 04/10/2022 11:18 PM HEAD OF MATHEMATICS COVID: Suspected 05/28/2022 05/28/2022 05/28/2022 8:39 AM CDT COVID: Suspected 12/16/2022 12/16/2022 12/16/2022 6:32 PM CDT COVID: Suspected 01/03/2023 01/03/2023 01/03/2023 3:18 PM HEAD OF MATHEMATICS COVID19 01/03/2023 01/03/2023 01/13/2023 3:05 AM HEAD OF MATHEMATICS COVID: Recovered Comment:01/14/2023 IP Review: MD team believes patient has not cleared original infection. Fabby Rodrigues RN Added based on recent COVID infection. 01/13/2023 01/13/2023 01/14/2023 9:[address] COVID: Suspected 01/13/2023 01/14/2023 01/14/2023 3:12 AM HEAD OF MATHEMATICS COVID19 01/14/2023 01/14/2023 01/29/2023 3:06 AM HEAD OF MATHEMATICS COVID: Recovered Comment:Added based on recent COVID infection. 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 02/26/2023 08/25/2023 3:05 AM CDT COVID: Suspected 07/25/2023 07/25/2023 07/25/2023 6:35 PM CDT COVID: Suspected 06/13/2024 06/13/2024 06/13/2024 9:45 PM CDT Rhino/Enterovirus 06/13/2024 06/13/2024 06/20/2024 3:06 AM CDT documented as of this encounter Care Teams Millinery Blocker Relationship Specialty Start Date End Date Low Alvarez MD [address] [facility] [address] [place] [address] PCP - General Internal Medicine 08/30/17 10/21/19 Low Alvarez MD [address] [place] [address] PCP - General Internal Medicine 10/22/19 Trae Thompson MD [address] [place] [address] Surgeon Colon and Rectal Surgery 06/25/19 Onofre James MD PhD [address] [place] [address] Consulting Physician Gastroenterology 06/25/19 Brown Handley MD [address] [place] [address] Immigration Coordinator Gastroenterology 12/10/19 Juan Diego Etienne MD [address] [place] [address] Referring Physician Cardiology 01/04/22 documented as of this encounter
[2024-07-03] MEDS: traMADol HCL (*CRX) 50 MG TABLET PO (19:09)
--- NOTE | 2024-07-03 20:07 | ED_ITS ---
HPI - Fall General Chief Complaint: Fall Stated Complaint: fall Time Seen by Provider: 07/03/24 18:20 History of Present Illness HPI Narrative: 83-year-old female with a history of multiple myeloma, hypothyroidism, GERD, hypertension, coronary disease. Today patient presents to the emergency department after mechanical fall. Patient normally ambulates with the assistance of her cane. Today while patient was getting groceries at the car she turned to her left side and lost her balance and fell towards the left side of her body. She landed on her head, left side of his shoulder left side of the chest and pelvis. She also did brace herself with the right wrist. She was able to get up with the assistance of her daughter and she got Tylenol at home. Daughter center to the hospital for evaluation. Patient herself did not lose consciousness does not take any blood thinner medications. No loss of continence, no seizure activity. Patient is awake answering all questions appropriately not any acute distress. Pain is mild. She endorses pain on left side of her body in her left side the head, neck, shoulder, hip, left knee where her previous prosthesis from TKA is in the right wrist. She has full range of motion of everything and no neurological complaints. No shortness of breath, chest pain, back pain, abdominal pain, fever, chills, nausea or vomiting. Related Data Home Medications ?Medication ?Instructions ?Recorded ?Confirmed ?Last Taken ?Type cetirizine 10 mg tablet (Zyrtec) 10 mg PO DAILY 01/20/19 08/24/23 Unknown History methylcellulose (laxative) 500 mg 500 mg PO DAILY 01/20/19 08/24/23 Unknown History tablet (Citrucel) multivitamin 1 cap PO DAILY 01/21/19 08/24/23 Unknown History acetaminophen 500 mg tablet 500 mg PO QID PRN Pain (Scale 02/05/20 08/24/23 Unknown History (Tylenol Extra Strength) Score 1-3) aspirin 81 mg capsule 81 mg PO DAILY 01/27/21 08/24/23 Unknown History lorazepam 0.5 mg tablet 0.5 mg PO DAILY PRN anxiety 05/17/22 08/24/23 Unknown History coenzyme Q10 75 mg capsule (Ultra 75 mg PO DAILY 06/07/22 08/24/23 Unknown History CoQ10) empagliflozin 10 mg tablet 10 mg PO DAILY 06/07/22 08/24/23 Unknown History (Jardiance) loperamide 2 mg tablet 2 mg PO Q6H PRN 06/07/22 08/24/23 Unknown History lutein 6 mg tablet 6 mg PO DAILY 06/07/22 08/24/23 Unknown History spironolactone 25 mg tablet 25 mg PO DAILY 06/07/22 08/24/23 Unknown History valacyclovir 500 mg tablet 500 mg PO DAILY 11/24/22 08/24/23 Unknown History carvedilol 3.125 mg tablet 3.125 mg PO Q12H 04/09/23 08/24/23 Unknown History cholecalciferol (vitamin D3) 50 50 mcg PO DAILY 08/24/23 08/24/23 Unknown History mcg (2,000 unit) capsule duloxetine 30 mg capsule,delayed 30 mg PO BID 08/24/23 08/24/23 Unknown History release guaifenesin 100 mg/5 mL oral liquid 200 mg PO Q4H PRN 08/24/23 08/24/23 Unknown History levofloxacin 750 mg tablet 750 mg PO DAILY 08/24/23 08/24/23 Unknown History lidocaine 4 % topical cream 1 applic topical BID 08/24/23 08/24/23 Unknown History meclizine 12.5 mg tablet 12.5 mg PO BID PRN 08/24/23 08/24/23 Unknown History meclizine 25 mg tablet 25 mg PO TID 08/24/23 08/24/23 Unknown History pregabalin 25 mg capsule 25 mg PO DAILY 08/24/23 08/24/23 Unknown History prochlorperazine maleate 10 mg 10 mg PO Q6H PRN 08/24/23 08/24/23 Unknown History tablet (Compazine) sacubitril 24 mg-valsartan 26 mg 0.5 tablet PO BID 08/24/23 08/24/23 Unknown History tablet (Entresto) sennosides 8.6 mg tablet (Senokot) 8.6 mg PO DAILY 08/24/23 08/24/23 Unknown History simethicone 125 mg capsule (Gas-X 125 mg PO DAILY PRN 08/24/23 08/24/23 Unknown History Extra Strength) Allergies Allergy/AdvReac Type Severity Reaction Status Date / Time azithromycin Allergy Intermediate Rash Verified 08/24/23 10:48 baclofen Allergy Intermediate Rash Verified 08/24/23 10:48 Penicillins Allergy Intermediate Rash Verified 08/24/23 10:48 propoxyphene Allergy Intermediate Rash Verified 08/24/23 10:48 Lhhxuzr-OGS-JiQ Reductase Allergy Intermediate Rash Verified 08/24/23 10:48 Inhibitor (Ahoxvja-Nua-Jrj Reductase Inhibitor) ibuprofen AdvReac Gastrointestinal Verified 08/24/23 10:48 Upset COCONUT AdvReac Mild GAGS Uncoded 08/24/23 10:48 Review of Systems Review of Systems: As reviewed above in HPI [facility] Past Medical History Medical History Multiple myeloma Moderate mitral valve regurgitation BMI 21.0-21.9, adult CHF (congestive heart failure) Orthopnea Chest wall pain 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 control 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 BMI 22.0-22.9, adult Cognitive changes Hypothyroidism (acquired) Low hemoglobin and low hematocrit Rib pain on left side Abdominal hernia Right carotid bruit ASHD (arteriosclerotic heart disease) Benign essential hypertension Heart murmur BMI 23.0-23.9, adult SOB (shortness of breath) Neck pain Hornet sting Unspecified hearing loss, bilateral Chronic diarrhea BONNER (dyspnea on exertion) Irritable bowel syndrome with diarrhea Malignant neoplasm of female breast Moderate persistent reactive airway disease with acute exacerbation Peripheral polyneuropathy Tachycardia Weight loss Colon cancer screening Cervicalgia UTI (urinary tract infection) Dizziness Post herpetic neuralgia Anxiety with depression Shingles Itching Encounter for routine adult health examination without abnormal findings BMI 25.0-25.9,adult Intercostal muscle pain Left-sided chest wall pain Back pain Rhus dermatitis Cough Statin intolerance Asthma Hiatal hernia Diverticulitis Follow up Abnormal finding of blood chemistry, unspecified Vitamin D deficiency Pain of right heel Mild reactive airways disease Vitamin B12 deficiency DJD (degenerative joint disease), multiple sites Encounter for routine adult health examination with abnormal findings Chronic abdominal pain Tachycardia Hyperlipidemia Lymphedema History of breast cancer in female Hypersomnia, idiopathic Diarrhea Dysuria On termite control 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 GERD (gastroesophageal reflux disease) Shortness of breath Bronchitis (12/19/18) Surgical History Surgical History History of total bilateral knee replacement Hx of resection of large bowel Hx of resection of large bowel History of bilateral mastectomy Family History Family History Father Family history of gout Family history of lung cancer Patient's father is Malignant neoplasm of prostate Mother Hypertension Asthma Family history of Alzheimer's disease Other Family history of allergic disorder Family history of cardiovascular disease Social History Social History Smoking status: Never smoker Second hand tobacco smoke exposure: No Alcohol intake: never Substance use: never Substance use type: does not use Lack of Transportation: No Lack of Food: Never True Current Housing: I Have Housing Concerned About Future Housing: No Difficulty Paying Gas/Electric Bills: No Difficulty Paying for Meds: No Currently Unemployed: No Education: Bachelor's Degree Difficulty w/ Childcare or Family Care: No Living arrangements: with family Occupation/Education: occupation Gender identity (if verbalized by the patient): Female Sexual Orientation (if Verbalized by the Patient): Straight or Heterosexual Spiritual care concerns: No Exam Narrative: GENERAL: [Well-appearing, well-nourished, and in no acute distress.] HEAD: [Normocephalic, atraumatic.] EYES: [PERRLA and EOMI.] ENT: Nares clear, no rhinorrhea or epistaxis. Mucous membranes moist. NECK: Supple. CHEST: [Clear to auscultation. No respiratory distress.] HEART: [Regular rate and rhythm]. No murmur heard. [Normal peripheral pulses.] ABDOMEN: [Soft, nondistended], [nontender], [No rigidity or guarding] EXTREMITIES: Normal range of motion. [No edema.] Mild tenderness to palpation over the left elbow without any effusions, full range of motion of both arms and legs, extensor mechanisms of both legs extend are intact and good plantar and dorsiflexion at the ankle. Full range of motion at the wrist with bilateral 5/5 rn lactation strength. No midline tenderness to the cervical, lumbar spine. No signs of head trauma. SKIN: Warm, dry, no rash. NEURO: [No focal deficits]. Alert and oriented [x3.] PSYCH: [Normal mood and affect.] Course Vital Signs Vital signs: Vital Signs Temperature 36.6 C 07/03/24 17:29 Pulse Rate 77 07/03/24 17:29 Respiratory Rate 16 07/03/24 17:29 Blood Pressure 116/63 07/03/24 17:29 Pulse Oximetry 100 07/03/24 17:29 Temperature 36.6 C 07/03/24 17:29 Pulse Rate 77 07/03/24 17:29 Respiratory Rate 16 07/03/24 17:29 Blood Pressure 116/63 07/03/24 17:29 Pulse Oximetry 100 07/03/24 17:29 MDM - Fall MDM Narrative Medical decision making narrative: 83-year-old female presenting for mechanical ground level fall towards her left side. Patient was getting groceries other the car when she turned to her left side and lost balance and landed onto her left side and right wrist. Did strike her head but did not lose consciousness. She overall appears well and is otherwise at her baseline health. Her examination is reassuring with full range of motion of all extremities, no signs of significant head injury or trauma. No overlying skin changes or bruising. Good distal neuro vasculature all extremities. Normal vital signs without any tachycardia, fever, hypoxia, blood pressure concerns. Given her age and risk factors occult injury such as fracture or intracranial pathology is not excluded so we will obtain x-ray images and CT scans of the head and neck. CT of the head and neck was ordered, x-rays left shoulder, elbow, right wrist, pelvis, left knee, left-sided rib series and chest x-ray were obtained. Patient provided tramadol for analgesia. Patient's imaging studies were all negative for any acute osseous abnormalities, fractures, or deformities. Patient is resting comfortably and her pain is controlled. She is safe for discharge home at this time and family comfortable with her going home. Medical Records Attestation: I reviewed the patient's medical records. Imaging Data Attestation: I personally reviewed and interpreted this imaging study as follows: My impression: Impressions Head CT 07/03/24 19:47 Impression: No acute intracranial hemorrhage or suspicious mass effect. Knee X-Ray 07/03/24 19:48 IMPRESSION: As above. Pelvis X-Ray 07/03/24 19:49 IMPRESSION: Degenerative disease, without acute fracture or dislocation, as detailed above. Ribs w/Chest X-Ray 07/03/24 19:51 IMPRESSION: No acute displaced left-sided rib fracture, as detailed above. The lungs are clear. Elbow X-Ray 07/03/24 19:53 IMPRESSION: No acute fracture Shoulder X-Ray 07/03/24 19:53 IMPRESSION: No acute fracture or anterior dislocation. Wrist X-Ray 07/03/24 19:54 IMPRESSION: Degenerative disease, without acute fracture. Cervical Spine CT 07/03/24 19:59 Impression: Severe degenerative disease, without acute fracture. Discharge Plan Discharge Clinical Impression: Ground-level fall, Closed head injury, Contusion Patient Disposition: Home Condition: Stable Instructions: Antibiotic Form, Head Injury (ED), Contusion in Adults (ED) Additional Instructions: All of your scans and imaging studies are reassuring. No broken bones or fractures, no bleeding. Take Tylenol and ibuprofen for any aches or pains. Follow-up with your regular doctor. Return with any emergent concerns. Patient Language: Citizen Of [place] Prescriptions: No Action aspirin 81 mg capsule 81 mg PO DAILY Breo Ellipta 100-25 mcg/dose blister with device 1 inh inhalation DAILY Qty: 60 3RF Ultra CoQ10 75 mg capsule 75 mg PO DAILY Jardiance 10 mg tablet 10 mg PO DAILY loperamide 2 mg tablet 2 mg PO Q6H PRN spironolactone 25 mg tablet 25 mg PO DAILY lutein 6 mg tablet 6 mg PO DAILY Rx Instructions: give with meal/snack carvedilol 3.125 mg tablet 3.125 mg PO Q12H Rx Instructions: must administer with a meal/food Citrucel 500 mg tablet 500 mg PO DAILY cetirizine [Zyrtec] 10 mg tablet 10 mg PO DAILY multivitamin Capsule 1 cap PO DAILY valacyclovir 500 mg tablet 500 mg PO DAILY levofloxacin 750 mg tablet 750 mg PO DAILY lidocaine 4 % cream 1 applic topical BID duloxetine 30 mg capsule,delayed release(DR/EC) 30 mg PO BID meclizine 25 mg tablet 25 mg PO TID meclizine 12.5 mg tablet 12.5 mg PO BID PRN pregabalin 25 mg capsule 25 mg PO DAILY prochlorperazine maleate [Compazine] 10 mg tablet 10 mg PO Q6H PRN Entresto 24-26 mg tablet 0.5 tablet PO BID sennosides [Senokot] 8.6 mg tablet 8.6 mg PO DAILY simethicone [Gas-X Extra Strength] 125 mg capsule 125 mg PO DAILY PRN cholecalciferol (vitamin D3) 50 mcg (2,000 unit) capsule 50 mcg PO DAILY guaifenesin 100 mg/5 mL liquid 200 mg PO Q4H PRN lorazepam 0.5 mg Tablet 0.5 mg PO DAILY PRN (Reason: anxiety) acetaminophen [Tylenol Extra Strength] 500 mg Tablet 500 mg PO QID PRN (Reason: Pain (Scale Score 1-3)) albuterol sulfate 90 mcg/actuation HFA aerosol inhaler 2 puff INHALATION QID PRN (Reason: shortness of breath or wheezing) Qty: 6.7 0RF ondansetron HCl 4 mg tablet 4 mg PO Q4H PRN (Reason: nausea and vomiting) Qty: 30 0RF tramadol 50 mg tablet 50 mg PO Q6H PRN (Reason: pain) Qty: 40 0RF sertraline 50 mg tablet 75 mg .ROUTE .COMPLEX Qty: 45 2RF Rx Instructions: 75 mg; montelukast 10 mg tablet See Rx Instructions .ROUTE .COMPLEX Qty: 90 1RF Dose Instruction: TAKE 1 TABLET BY MOUTH DAILY Rx Instructions: TAKE 1 TABLET BY MOUTH DAILY ciprofloxacin HCl 250 mg tablet 250 mg PO Q12H Qty: 14 0RF pantoprazole 40 mg tablet,delayed release (DR/EC) See Rx Instructions .ROUTE .COMPLEX Qty: 90 1RF Dose Instruction: TAKE 1 TABLET(40 MG) BY MOUTH EVERY MORNING Rx Instructions: TAKE 1 TABLET(40 MG) BY MOUTH EVERY MORNING alprazolam 0.25 mg tablet 0.25 mg PO TID PRN (Reason: anxiety) Qty: 50 0RF levothyroxine 50 mcg tablet See Rx Instructions .ROUTE .COMPLEX Qty: 90 1RF Dose Instruction: TAKE 1 TABLET BY MOUTH DAILY Rx Instructions: TAKE 1 TABLET BY MOUTH DAILY Nexlizet 180-10 mg tablet See Rx Instructions .ROUTE .COMPLEX Qty: 90 1RF Dose Instruction: TAKE 1 TABLET BY MOUTH DAILY Rx Instructions: TAKE 1 TABLET BY MOUTH DAILY Follow-up/Referrals: Low Alvarez MD [Primary Care Provider] - Time of Disposition: 20:19
[2024-07-03 20:36] VITALS: BP 122/68; PULSE 71; RESP 18; O2SAT 100
== END 2024-07-03 20:38 | disposition home or self-care (01) ==
PROVIDERS: Emergency Provider Student in an Organized Health Care Education/Training Program; PCP Internal Medicine
DX: S09.90XA Unspecified injury of head, initial encounter (principal); T14.8XXA Other injury of unspecified body region, initial encounter; I50.9 Heart failure, unspecified; I11.0 Hypertensive heart disease with heart failure; I34.0 Nonrheumatic mitral (valve) insufficiency; I25.10 Atherosclerotic heart disease of native coronary artery without angina pectoris; E03.9 Hypothyroidism, unspecified; E55.9 Vitamin D deficiency, unspecified; E53.8 Deficiency of other specified B group vitamins; E78.5 Hyperlipidemia, unspecified; J45.909 Unspecified asthma, uncomplicated; G62.9 Polyneuropathy, unspecified; G47.11 Idiopathic hypersomnia with long sleep time; K58.0 Irritable bowel syndrome with diarrhea; K21.9 Gastro-esophageal reflux disease without esophagitis; K44.9 Diaphragmatic hernia without obstruction or gangrene; M18.9 Osteoarthritis of first carpometacarpal joint, unspecified; M47.812 Spondylosis without myelopathy or radiculopathy, cervical region; M43.22 Fusion of spine, cervical region; F41.8 Other specified anxiety disorders; Z96.653 Presence of artificial knee joint, bilateral; Z85.79 Personal history of other malignant neoplasms of lymphoid, hematopoietic and related tissues; Z85.3 Personal history of malignant neoplasm of breast; Z90.49 Acquired absence of other specified parts of digestive tract; Z90.13 Acquired absence of bilateral breasts and nipples; W18.39XA Other fall on same level, initial encounter
CPT/HCPCS: 70450; 71101; 72125; 72170; 73030; 73070; 73100; 73562; 99284; A9270

== ENCOUNTER 2024-07-28 14:08 | Outpatient (CLI) | payer MEDICARE, SELFPAY ==
--- OUTSIDE RECORDS SUMMARY | 2024-07-28 14:30 | XMS_ITS | Encounter Summary ---
Author Organization [facility] Address [address] [place] [address] Phone Care Team Providers Care Ton Container Shipper Name Role Phone Trae Thompson MD Unavailable [phone] Onofre James MD PhD Unavailable [phone] Low Alvarez MD Primary Care Provider [phone] Brown Handley MD Unavailable Juan Diego Etienne MD Unavailable [phone] Encounter Details Date Type Department Care Team (Late st Contact Info) Description 05/18/2023 Telephone [facility] Oncology [address] [facility] 7th [place] [address] [place] [address] Quiana Coles Social History Tobacco Use Types Packs/Day Years Used Date Smoking Tobacco: Never Smokeless Tobacco: Never Alcohol Use Standard Drinks/Week Comments Yes 0 (1 standard drink = 0.6 oz pur e alcohol) occ glass of wine [facility] Utilities Answer Date Recorded In the past 12 months has [employer] electric, gas, oil, or water company threatened [...] often do you attend chur ch or sabianist services? Never 03/02/2023 Do you belong to any clubs o r organizations such as sikh groups, unions, fraternal or athletic groups, or [...] on file Legal Sex Female 10:03 AM CHECKER IN Gender Identity Female 11/27/2023 9:47 AM CDT [...] documented as of this encounter Care Teams Ton Container Shipper Relationship Specialty Start Date End Date Low Alvarez MD [address] [place] [address] PCP - General Internal Medicine 10/22/19 Trae Thompson MD Surgeon Colon and Rectal Surgery 06/25/19 Onofre James MD PhD Consulting Physician Gastroenterology 06/25/19 Brown Handley MD [facility] [address] [place] [address] Hair Assistant Gastroenterology 12/10/19 Juan Diego Etienne MD [address] [place] [address] Referring Physician Cardiology 01/04/22 documented as of this encounter
--- OUTSIDE RECORDS SUMMARY | 2024-07-28 14:30 | XMS_ITS | Encounter Summary ---
Author Organization [facility] Healthcare Address [address] [place] [address] Care Team Providers Care Cap Jewel Plate Assembler Name Role Phone Trae Thompson MD Unavailable [phone] Onofre James MD PhD Unavailable [phone] Low Alvarez MD Primary Care Provider [phone] Brown Handley MD Unavailable [phone] Juan Diego Etienne MD Unavailable [phone] Encounter Details Date Type Department Care Team (Late st Contact Info) Description 10/29/2019 Telephone [facility] [address] [place] [address] Hanna Alves, RT Social History Tobacco Use [...] on file Legal Sex Female 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 Gender Identity Female 11/27/2023 9:47 AM CDT Sexual Orientation Not on file documented as of this encounter Plan of Treatment Not on file documented as of this encounter Visit Diagnoses Not on filedocumented in this encounter Additional Health Concerns Infection Onset Date Last Indicated Resolved Time COVID: Suspected 04/10/2022 04/10/2022 04/10/2022 11:18 PM GRADALL OPERATOR COVID: Suspected 05/28/2022 05/28/2022 05/28/2022 8:39 AM CDT COVID: Suspected 12/16/2022 12/16/2022 12/16/2022 6:32 PM CDT COVID: Suspected 01/03/2023 01/03/2023 01/03/2023 3:18 PM GRADALL OPERATOR COVID19 01/03/2023 01/03/2023 01/13/2023 3:05 AM GRADALL OPERATOR COVID: Recovered Comment:01/14/2023 IP Review: MD team believes patient has not cleared original infection. Fabby Rodrigues RN Added based on recent COVID infection. 01/13/2023 01/13/2023 01/14/2023 9:[address] COVID: Suspected 01/13/2023 01/14/2023 01/14/2023 3:12 AM GRADALL OPERATOR COVID19 01/14/2023 01/14/2023 01/29/2023 3:06 AM GRADALL OPERATOR COVID: Recovered Comment:Added based on recent COVID infection. 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 02/26/2023 08/25/2023 3:05 AM CDT COVID: Suspected 07/25/2023 07/25/2023 07/25/2023 6:35 PM CDT COVID: Suspected 06/13/2024 06/13/2024 06/13/2024 9:45 PM CDT Rhino/Enterovirus 06/13/2024 06/13/2024 06/20/2024 3:06 AM CDT documented as of this encounter Care Teams Cap Jewel Plate Assembler Relationship Specialty Start Date End Date Low Alvarez MD [address] [place] [address] PCP - General Internal Medicine 10/22/19 Trae Thompson MD Surgeon Colon and Rectal Surgery 06/25/19 Onofre James MD PhD Consulting Physician Gastroenterology 06/25/19 Brown Handley MD [address] [place] [address] Bracer Gastroenterology 12/10/19 Juan Diego Etienne MD [address] [place] [address] Referring Physician Cardiology 01/04/22 documented as of this encounter
--- OUTSIDE RECORDS SUMMARY | 2024-07-28 14:30 | XMS_ITS | Encounter Summary ---
Author Organization [facility] Healthcare Address [address] [place] [address] Care Team Providers Care Measurement Superintendent Name Role Phone Low Alvarez MD Primary Care Provider [phone] Trae Thompson MD Unavailable Onofre James MD PhD Unavailable Low Alvarez MD Primary Care Provider Brown Handley MD Unavailable Juan Diego Etienne MD Unavailable [phone] Encounter Details Date Type Department Care Team (Late st Contact Info) Description 09/10/2019 Telephone [facility] ([facility]) [facility] [place], [place] [id number] Aileen Johnston MD [facility] [address] [place] [address] Social History Tobacco Use Types Packs/Day Years Used Date Smoking Tobacco: Never Comments No Sex and Gender Information Value Date Recorded Sex Assigned at Not on file Legal Sex Female 10:03 AM DOMINATRIX Gender Identity Female 11/27/2023 9:47 AM CDT Sexual Orientation Not on file documented as of this encounter Plan of Treatment Not on file documented as of this encounter Visit Diagnoses Not on filedocumented in this encounter Additional Health Concerns Infection Onset Date Last Indicated Resolved Time COVID: Suspected 04/10/2022 04/10/2022 04/10/2022 11:18 PM DOMINATRIX COVID: Suspected 05/28/2022 05/28/2022 05/28/2022 8:39 AM CDT COVID: Suspected 12/16/2022 12/16/2022 12/16/2022 6:32 PM CDT COVID: Suspected 01/03/2023 01/03/2023 01/03/2023 3:18 PM DOMINATRIX COVID19 01/03/2023 01/03/2023 01/13/2023 3:05 AM DOMINATRIX COVID: Recovered Comment:01/14/2023 IP Review: MD team believes patient has not cleared original infection. Fabby Rodrigues RN Added based on recent COVID infection. 01/13/2023 01/13/2023 01/14/2023 9:[address] COVID: Suspected 01/13/2023 01/14/2023 01/14/2023 3:12 AM DOMINATRIX COVID19 01/14/2023 01/14/2023 01/29/2023 3:06 AM DOMINATRIX COVID: Recovered Comment:Added based on recent COVID infection. 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 02/26/2023 08/25/2023 3:05 AM CDT COVID: Suspected 07/25/2023 07/25/2023 07/25/2023 6:35 PM CDT COVID: Suspected 06/13/2024 06/13/2024 06/13/2024 9:45 PM CDT Rhino/Enterovirus 06/13/2024 06/13/2024 06/20/2024 3:06 AM CDT documented as of this encounter Care Teams Measurement Superintendent Relationship Specialty Start Date End Date Low Alvarez MD [address] [facility] [address] [place] [address] PCP - General Internal Medicine 08/30/17 10/21/19 Low Alvarez MD [address] [place] [address] [place] [address] PCP - General Internal Medicine 10/22/19 Trae Thompson MD [address] [place] [address] [place] [address] Surgeon Colon and Rectal Surgery 06/25/19 Onofre James MD PhD [address] [place] [address] [place] [address] Consulting Physician Gastroenterology 06/25/19 Brown Handley MD [address] [place] [address] [place] [address] Political Geographer Gastroenterology 12/10/19 Juan Diego Etienne MD [address] [place] [address] [place] [address] Referring Physician Cardiology 01/04/22 documented as of this encounter
--- OUTSIDE RECORDS SUMMARY | 2024-07-28 14:31 | XMS_ITS | Clinical Summary ---
Author Organization [facility] Address [address] [place] [address] Phone Care Team Providers Care Municipal Maintenance Worker Name Role Phone Low Alvarez MD [...] Alvarez MD Referring Provider: Low Alvarez MD [address] [place] [address] Other: Problem Noted Date Diagnosed Date Mild intermittent asthma with acute exacerbation 07/14/2016 Lump of right breast 10/11/2015 Bilateral malignant neoplasm involving both nipple and areola in female 10/15/2008 Cancer Staging:Clinical stage from 11/28/2000:Stage I(T1b, N0, M0, Free text: 2 nodes ihc +) - Unsigned Pathologic: Unsigned Overview (02/04/2016): Images from the original note were not included. 2001,R breast,T1BN0(IHC involved 2/3), ER+,MT+,Her2 neg AC x 3, Thiotepa/Novantrone x 1 RT,Tamoxifen tried, couldn't tolerate STAGE: TIB Nmi1,stage *IB New primary right breast: PATHOLOGY: 10/11/15 11/09/15 right TM/SLN; left TM Breast, right, lumpectomy: -Invasive lobular carcinoma 5.5 cm + 5 cm, ER(+) MT(+) Her 2 (-) Ki-67 37% // LN [...] IIB [] III [] IV ER: Positive MT: Positive Nng7Wdr: Negative Surgery: [x] Yes [] No Surgery [...] diseases and does not alter medical intervention. [place] has a variant classification program which performs [...] other tests as indicated on each visit TYPIST Continue your yearly visit. *Physical exam and other tests (Pap test) as indicated on each visit. Please continue to see your primary care physician/TYPIST for all general health care recommended for a female your age. 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 [...] libido- physical exercise recommended. Can refer to [facility] program for counseling and possible acupuncture. 6) [...] Received flu shot 13) [employer] at local [facility] REFERRALS [] Star [] [facility] Integrative Therapy [] [facility] Pastoral Services [employer] at the [facility] [] Other (Specify): ADDITIONAL RESOURCES Patients may have many questions and concerns after their cancer treatment ends. A list of local resources as provided below to assist you. [facility] cancer information center: [place] Cancer Society (ACS): www.acs.org National Cancer [place] (NCI): www.cancer.gov [place] Society of clinical oncology (ASCO): www.cancer.net Komen: www.komen.org Livestrong: www.PlaySighttrong365webcall Radiation therapy: www.rtanswers.org Patient signature: Eva/RESTAURANT COOK/RN signature: Date delivered on: 02/04/2016 60 minutes [...] on file Legal Sex Female 5:42 AM DUB ROOM ENGINEER Gender Identity Not on file Sexual Orientation [...] A M CDT Height 154.9 cm (5' 1) 07/12/2021 10:39 AM CDT Body Mass Index [...] DENSITY 2 SITES (10/15/2008) T-SCORE FEMUR >=-0.99 INSPECTOR FINAL ASSEMBLY MECHANICAL AL RADIOLOGY T-SCORE SPINE >=-0.99 INSPECTOR FINAL ASSEMBLY MECHANICAL AL RADIOLOGY T-SCORE WRIST >=-0.99 INSPECTOR FINAL ASSEMBLY MECHANICAL AL RADIOLOGY T-SCORE HEEL >=-0.99 EXTERNA L RADIOLOGY Anatomical Region Laterality Modality Other Leticia Segundo MD DIAGNOSTIC IMAGING ORDERABLES Final Result from Last 3 Months or Most Recently Relevant to Health Maintenance Insurance MEDICARE PART A AND B [employer] ACCESS/TRUE [employer] PPO Advance Directives For more information, please contact: [phone] * Full Code (Latest Code Status on [...] 10:03 AM 10/11/2015 4:11 PM Care Teams Municipal Maintenance Worker Relationship Specialty Start Date End Date Low Alvarez MD [address] [place] [address] PCP - General 10/15/08
--- OUTSIDE RECORDS SUMMARY | 2024-07-28 14:31 | XMS_ITS | Patient Health Record ---
Author Organization [facility] Address [address] [place], [place] [address] Care Team Providers Care Lighter Name Role Phone Low Alvarez Unavailable Unavailable LYNN SONI Unavailable [phone] Reason For Referral No Information Social History Tobacco Use: Social History Observation Description Date Details (start date - stop date) Never Smoker NA - NA Tobacco Control (Standard) Question Answer Notes Tobacco use: Nonsmoker Encounters Encounter Location Date Provider Diagnosis [facility] [place] [address] [place], [place] [id number] 08/16/2023 LYNN SONI Fungal infection of nail B35.1 ; Pain in right toe(s) M79.674 ; Pain in left toe(s) M79.675 ; 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, bilateral legs I70.203 and [...] (ICD-10 - M79.675) 08/16/2023 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, 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) 08/16/2023 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) Plan Of Treatment No Information Insurance Providers Payer Name Payer Address Payer Phone Subscriber Number Group Number Insured Name Patient Relationship to Insured Coverage Start Date Coverage End Date Medicare Part B [place] [address] [place] [phone] [id number] ZAIDARabia TASNEEM Self - patient is the insured [facility] ([facility]) ATTN CLAIMS [address] [place] [address] [id number] ZAIDATASNEEM [place] Self - patient is the insured Medical (General) History Medical History History ICD Code acid reflux artificial joint Blood transfusion fibromyalgia neuropathy Pneumonia anemia Cancer (type of cancer) Arthritis skin cancer Sleep apnea Heart Disease hypertension
--- OUTSIDE RECORDS SUMMARY | 2024-07-28 14:31 | XMS_ITS ---
Author Organization [facility] Address [address] [place] [address] Care Team Providers Care Nba Player Name Role Phone Trae Thompson MD Unavailable [phone] Onofre James MD PhD Unavailable [phone] Low Alvarez MD Primary Care Provider Brown Handley MD Unavailable Juan Diego Etienne MD Unavailable [phone] Active Problems Patient Care Coordination No te Formatting of this note is d ifferent from the original. BMT Inpatient Care Coordination Overview Diagnosis [place] [address] Treatment Plan Stacie/velcade/dex Reason for Admission 02/26/23 - recurrent LLQ Abd pain, N/V Transplant/IEC Planning BMT/IEC Plan HLA typing/IDMs [] Insurance Approval [] Discharge Planning Anticipated Discharge Date 03/02 Patient Education Completed [x] Issue to be Resolved Before Discharge Discharge Disposition HOME Requests Sent to Case Management, Pharmacy PA Team, or Medical Assistants Post-Discharge Follow-Up Living Situation/Distance from [facility] Caregiver Lab/Transfusion Frequency Labs are stable Venous Access & Care implanted vascular device Local Oncologist Contact Phone: Fax: Post-Discharge Office Visit (H30) [place] 03/27 Miscellaneous Notes: Problem Noted Date Diagnosed Date Esophageal thickening 08/01/2023 Abnormal gastrointestinal PET scan 08/01/[address] scan 03/13/2023 History of colon polyps 03/13/2023 Anxiety 03/03/2023 Assessment & Plan (03/03/2023 1:12 PM WEATHER ALGORITHM SCIENTIST): Continue Sertraline 50 mg daily. LLQ abdominal pain 02/27/2023 Assessment & Plan (03/03/2023 1:11 PM WEATHER ALGORITHM SCIENTIST): Presents with 3 days of diarrhea, nausea [...] empiric therapy for acute diverticulitis at the [facility] given prior GI history, prior [...] months. Assessment & Plan (02/27/2023 3:30 PM WEATHER ALGORITHM SCIENTIST): EF35% TTE 05/29/22 No features of active heart failure or volume overload. GMDT: coreg 3.125 mg BID-hold for dehydration and poor oral intake Suspected Pneumonia 01/14/2023 Assessment & Plan (01/14/2023 1:05 AM WEATHER ALGORITHM SCIENTIST): Recent COVID-19 tested positive on 01/03/2023 treated [...] 01/14/2023 Assessment & Plan (01/14/2023 1:04 AM WEATHER ALGORITHM SCIENTIST): Continue home Breo and Singulair Abnormal urinalysis 01/14/2023 Assessment & Plan (01/14/2023 1:07 AM WEATHER ALGORITHM SCIENTIST): UA was positive for 1+ leukocyte esterase, 11-20 WBCs, 2+ bacteria. Denies any urinary frequency/dysuria/hematuria Status post Macrobid 1 dose in the [facility] Already on IV ceftriaxone for suspected pneumonia Moderate protein-calorie malnutrition 01/14/2023 Hx of multiple myeloma 01/13/2023 Vertigo 12/18/2022 Assessment & Plan (01/14/2023 1:07 AM WEATHER ALGORITHM SCIENTIST): Meclizine p.r.n. Assessment & Plan (12/18/2022 12:23 PM CDT): Symptoms consistent with vertigo. - Discharge home with meclizine QID PRN - Counseled pt on safety and fall prevention - Ambulating well with cane Hypothyroidism, unspecified 12/17/2022 Assessment & Plan (01/14/2023 1:00 AM WEATHER ALGORITHM SCIENTIST): Continue levothyroxine 50 mcg daily Assessment & Plan (12/17/2022 11:47 AM CDT): - c/w home synthroid. Anemia due to chemotherapy 07/11/2022 History of ischemic Cardiomyopathy 07/10/2022 Assessment & Plan (01/14/2023 1:02 AM WEATHER ALGORITHM SCIENTIST): Now with recovered LVEF( previously EF 46% [...] 06/23/2022 Cancer Staging:Clinical stage from 07/11/2022:RISS Stage III(Sjpu-3-zdcrwzqzroqex (mg/L): 27.7, Albumin (g/dL): 3.6, ISS: Stage III, High-risk cytogenetics: Present, LDH: Normal) - Signed by Tiago Currie MD on 07/11/2022 Assessment & Plan (03/01/2023 5:41 PM WEATHER ALGORITHM SCIENTIST): Diagnosed May 2022. IgA Lambda Multiple Myeloma, [...] prn. Assessment & Plan (01/14/2023 12:59 AM WEATHER ALGORITHM SCIENTIST): s/pD15C7 of daratumumab/Bortezomib/Dexamethasone on 01/02/23 Transfuse per [...] (01/09/2022): Added automatically from request for surgery [id number] CAD (coronary artery disease) 04/06/2021 Assessment & Plan (01/14/2023 1:02 AM WEATHER ALGORITHM SCIENTIST): s/p PCI-LAD 12/24/2020 Continue aspirin, Coreg Assessment & Plan (07/10/2022 2:22 PM CDT): Denies any chest pain. Does admit to some dyspnea with exertion such as taking the stairs. Unclear etiology as it could be multi-factorial secondary to deconditioning, multiple myeloma and anemia (most recent hemoglobin 8.7). Continue aspirin, carvedilol and losartan. Essential hypertension 08/02/2020 Assessment & Plan (01/14/2023 1:00 AM WEATHER ALGORITHM SCIENTIST): Blood pressure stable Continue Coreg Assessment & Plan (12/18/2022 12:20 PM CDT): - Hold coreg, lasix, aldactone and losartan overnight. Can resume at discharge. Assessment & Plan (07/10/2022 2:19 PM CDT): Well controlled. Continue Carvedilol, losartan and spironolactone. Dyslipidemia 04/26/2020 Assessment & Plan (02/27/2023 3:33 PM WEATHER ALGORITHM SCIENTIST): Continue ezetimibe Assessment & Plan (07/10/2022 2:18 PM CDT): Last LDL at goal of < 70. Continue Zetia and [place] 3. 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 2000,R breast,T1BN0(IHC involved 2/3), ER+,IL+,Her2 neg AC x 3, Thiotepa/Novantrone x 1 RT,Tamoxifen tried, couldn't tolerate STAGE: TIB Nmi1,stage *IB New primary right breast: PATHOLOGY: 10/11/15 11/09/15 right TM/SLN; left TM Breast, right, lumpectomy: -Invasive lobular carcinoma 5.5 cm + 5 cm, ER(+) IL(+) Her 2 (-) Ki-67 37% // LN [...] HER-2/brian negative and intermediate grade with a Pawling score 5 out of 9. Imaging performed [...] IIB [] III [] IV ER: Positive IL: Positive Wfi2Nwr: Negative Surgery: [x] Yes [] No Surgery date: 11/09/2015 Surgical procedures/location/findings: Bilateral mastectomies with sentinel lymph node biopsy on the right. Final pathology on the right breast demonstrated invasive lobular carcinoma measuring greater than 5 cm, intermediate grade with a Pawling score of 6 out of 9, margins [...] diseases and does not alter medical intervention. [place] has a variant classification program which performs [...] other tests as indicated on each visit ASSOCIATE CHIEF NURSE Continue your yearly visit. *Physical exam and other tests (Pap test) as indicated on each visit. Please continue to see your primary care physician/ASSOCIATE CHIEF NURSE for all general health care recommended for a female your age. Possible late and/or mcc effects that someone with this type of [...] scheduled for 02/08/2016 at 11:00 at the [facility] 2) Follow up with Dr. Cotton [...] libido- physical exercise recommended. Can refer to [facility] program for counseling and possible acupuncture. 6) [...] Received flu shot 13) [employer] at local [facility] REFERRALS [] Star [] [facility] Integr[facility] Therapy [] [facility] Pastoral Services [employer] at the [facility] [] Other (Specify): ADDITIONAL RESOURCES Patients may have many questions and concerns after their cancer treatment ends. A list of local resources as provided below to assist you. [facility] cancer information center: [place] Cancer Society (ACS): www.acs.org National Cancer [place] (NCI): www.cancer.gov [place] Society of clinical oncology (ASCO): www.cancer.net Komen: www.komen.org Livestrong: www.livestronGenisphere Inc.eGifter Radiation therapy: www.rtanswers.org Patient signature: Eva/YVES/RN signature: [...] Medications Current Day (Day 1 , Cycle 23 ROV - Planned for 08/19/2024) Next Day (Day 1, Cycle 24 treatment only - Planned for 09/16/2024) bortezomib (VELCADE)daratumumab-fihj (DARZALEX FASPRO) (DARZALEX FASPRO)daratumumab-fihj (DARZALEZ [...] 03/04/2023 Assessment & Plan (02/27/2023 3:29 PM WEATHER ALGORITHM SCIENTIST): Presents with significant weight loss with examination revealing temporal depression, loss of buccal fat and shrunken cheeks Meets the criteria for malnutrition Plan: Will obtain RD consult Encourage PO intake (>50% of portion of meals) Assistance with meals as needed by family crimper operator/provider team Weekly weights and charting Oral nutrition supplementation TID Nausea & vomiting 12/16/2022 03/04/2023 Assessment & Plan (12/17/2022 11:44 AM CDT): - supportive care with anti-emetics PRN Diverticulitis 09/04/2019 11/01/2019 Overview (09/04/2019): Added automatically from request for surgery [id number] Sigmoid diverticulitis 09/03/201910/31
--- OUTSIDE RECORDS SUMMARY | 2024-07-28 14:31 | XMS_ITS | Clinical Summary ---
Author Organization [facility] Address [address] [place] [address] Care Team Providers Care Special Education Coordinator Name Role Phone Low Alvarez MD Primary Care Provider [phone] Source Comments [facility],non-[facility] Affiliates and Associated Physician Practices is amultiple site organization consisting of ambulatory clinics and hospital sitesin [place], [place], [place] and [place]. This disclosure is being madepursuant to the Care Everywhere program and may not contain all information available regarding this patient. Last updated 17.[facility] [employer] Allergies Active Allergy Reactions Criticality Noted Date [...] by mouth. [place] [address] Units by mouth every 7 days. Active [...] on file Legal Sex Female 6:12 AM SALES ACTIVITY MANAGER Gender Identity Not on file Sexual Orientation Not on file Last Filed Vital Signs Vital Sign Reading Time Taken Comments Blood Pressure 142/74 01/20/2013 2:03 PM SALES ACTIVITY MANAGER Pulse 98 01/20/2013 2:03 PM SALES ACTIVITY MANAGER Temperature 36.6 C (97.9 F) 01/20/2013 2:03 PM SALES ACTIVITY MANAGER Respiratory Rate 20 01/20/2013 2:03 PM SALES ACTIVITY MANAGER Oxygen Saturation 98% 07/21/2009 12:30 PM CDT Inhaled Oxygen Concentration - - Weight 66.9 kg (147 lb 6.4 oz) 01/20/2013 2:03 P M SALES ACTIVITY MANAGER Height 152.4 cm (5') 01/20/2013 2:03 PM SALES ACTIVITY MANAGER Body Mass Index 28.79 01/20/2013 2:03 PM SALES ACTIVITY MANAGER Plan of Treatment Health Maintenance Due Date [...] age to complete this topic Care Teams Special Education Coordinator Relationship Specialty Start Date End Date Low Alvarez MD [address] [place] [address] PCP - General 07/21/09
--- OUTSIDE RECORDS SUMMARY | 2024-07-28 14:31 | XMS_ITS ---
Author Organization [facility] Address [address] [place] [id number] Care Team Providers Care Business Risk Analyst Name Role Phone Low Alvarez Unavailable Unavailable LYNN LUIS Unavailable [phone] REASON FOR VISIT *General care Encounters Encounter Location Date Provider Diagnosis [facility] [place] [address] [id number] 10/18/2023 LYNN LUIS Plan Of Treatment No Information Progress Notes * NUBIA MENARDB:1940 (83 yo F)Acc No.[id number]:10/18/2023 Patient: TASNEEM NEWMAN Provider: Jalyn Luis DPM :1940 A ge:83 Y S ex:Female Date:10/18/2023 Address:[address] [place], [place] [id number] Subjective: * Chief Complaints: * 1 . *General care. * Medical History: Objective: * Vitals: Assessment: Plan: * Treatment: * Billing Information: * Visit Code: * Procedure Codes: * Electronic signature of LYNN LUIS DPM on 07/28/2024 at 02:30 PM CDT Sign off status: Pending * Provider: Jalyn Luis DPM Date: 10/18/2023 Generated for Ade royal/Yu/eTransmitting on: 07/28/2024 02:30 PM CDT
--- OUTSIDE RECORDS SUMMARY | 2024-07-28 14:31 | XMS_ITS | Clinical Summary ---
Author Organization [facility] Address [address] [place] [address] Care Team Providers Care Date Night Caregiver Name Role Phone Trae Thompson MD Unavailable Onofre James MD PhD Unavailable Low Alvarez MD Primary Care Provider [phone] Brown Handley MD Unavailable Juan Diego Etienne MD Unavailable [phone] Allergies Active Allergy Reactions Criticality Noted [...] CAPSULE(25 MG) BY MOUTH DAILY 30 capsule 5 025 Active pregabalin (LYRICA) 25 mg capsuleIndication s:LLQ pain Take 1 capsule (25 mg total) by mouth daily 30 capsule 3 025 2024 Discontinued pregabalin (LYRICA) 25 mg capsuleIndication s:LLQ pain TAKE 1 CAPSULE(25 MG) BY MOUTH DAILY 30 capsule 2 025 2024 Discontinued Active Problems Patient Care Coordination No te Formatting of this note is d ifferent from the original. BMT Inpatient Care Coordination Overview [place] [address] Treatment Plan Stacie/velcade/dex Reason for Admission 02/26/23 - recurrent LLQ Abd pain, N/V Transplant/IEC Planning BMT/IEC Plan HLA typing/IDMs [] Insurance Approval [] Discharge Planning Anticipated Discharge Date 03/02 Patient Education Completed [x] Issue to be Resolved Before Discharge Discharge Disposition HOME Requests Sent to Case Management, Pharmacy PA Team, or Medical Assistants Post-Discharge Follow-Up Living Situation/Distance from [facility] Caregiver Lab/Transfusion Frequency Labs are stable Venous Access & Care implanted vascular device Local Oncologist Contact Phone: Fax: Post-Discharge Office Visit (H30) [place] 03/27 Miscellaneous Notes: Problem Noted Date Diagnosed Date Esophageal thickening 08/01/2023 Abnormal gastrointestinal PET scan 08/01/[address] scan 03/13/2023 History of colon polyps 03/13/2023 Anxiety 03/03/2023 Assessment & Plan (03/03/2023 1:12 PM COMMUNITY SERVICE REPRESENTATIVE): Continue Sertraline 50 mg daily. LLQ abdominal pain 02/27/2023 Assessment & Plan (03/03/2023 1:11 PM COMMUNITY SERVICE REPRESENTATIVE): Presents with 3 days of diarrhea, [...] empiric therapy for acute diverticulitis at the [facility] given prior GI history, prior similar presentation, [...] Stable exam in clinic. Continue current regimen. / dose 24/26 mg BID entresto and coreg. We made no additional changes today. I asked that she continue to monitor her BP at home with good improvement in her EF will not push to add SGLT2i or MRA at this point. Dr. Etienne in 6 months. Assessment & Plan (02/27/2023 3:30 PM COMMUNITY SERVICE REPRESENTATIVE): EF35% TTE 05/29/22 No features of active heart failure or volume overload. GMDT: coreg 3.125 mg BID-hold for dehydration and poor oral intake Suspected Pneumonia 01/14/2023 Assessment & Plan (01/14/2023 1:05 AM COMMUNITY SERVICE REPRESENTATIVE): Recent COVID-19 tested positive on 01/03/2023 [...] 01/14/2023 Assessment & Plan (01/14/2023 1:04 AM COMMUNITY SERVICE REPRESENTATIVE): Continue home Breo and Singulair Abnormal urinalysis 01/14/2023 Assessment & Plan (01/14/2023 1:07 AM COMMUNITY SERVICE REPRESENTATIVE): UA was positive for 1+ leukocyte esterase, 11-20 WBCs, 2+ bacteria. Denies any urinary frequency/dysuria/hematuria Status post Macrobid 1 dose in the [facility] Already on IV ceftriaxone for suspected pneumonia Moderate protein-calorie malnutrition 01/14/2023 Hx of multiple myeloma 01/13/2023 Vertigo 12/18/2022 Assessment & Plan (01/14/2023 1:07 AM COMMUNITY SERVICE REPRESENTATIVE): Meclizine p.r.n. Assessment & Plan (12/18/2022 12:23 PM CDT): Symptoms consistent with vertigo. - Discharge home with meclizine QID PRN - Counseled pt on safety and fall prevention - Ambulating well with cane Hypothyroidism, unspecified 12/17/2022 Assessment & Plan (01/14/2023 1:00 AM COMMUNITY SERVICE REPRESENTATIVE): Continue levothyroxine 50 mcg daily Assessment & Plan (12/17/2022 11:47 AM CDT): - c/w home synthroid. Anemia due to chemotherapy 07/11/2022 History of ischemic Cardiomyopathy 07/10/2022 Assessment & Plan (01/14/2023 1:02 AM COMMUNITY SERVICE REPRESENTATIVE): Now with recovered LVEF( previously EF [...] 06/23/2022 Cancer Staging:Clinical stage from 07/11/2022:RISS Stage III(Vjrb-4-idfqrqskjuynw (mg/L): 27.7, Albumin (g/dL): 3.6, ISS: Stage III, High-risk cytogenetics: Present, LDH: Normal) - Signed by Tiago Currie MD on 07/11/2022 Assessment & Plan (03/01/2023 5:41 PM COMMUNITY SERVICE REPRESENTATIVE): Diagnosed May 2022. IgA Lambda Multiple [...] prn. Assessment & Plan (01/14/2023 12:59 AM COMMUNITY SERVICE REPRESENTATIVE): s/[id number] of daratumumab/Bortezomib/Dexamethasone on 01/02/23 Transfuse [...] (01/09/2022): Added automatically from request for surgery [id number] CAD (coronary artery disease) 04/06/2021 Assessment & Plan (01/14/2023 1:02 AM COMMUNITY SERVICE REPRESENTATIVE): s/p PCI-LAD 12/24/2020 Continue aspirin, Coreg Assessment & Plan (07/10/2022 2:22 PM CDT): Denies any chest pain. Does admit to some dyspnea with exertion such as taking the stairs. Unclear etiology as it could be multi-factorial secondary to deconditioning, multiple myeloma and anemia (most recent hemoglobin 8.7). Continue aspirin, carvedilol and losartan. Essential hypertension 08/02/2020 Assessment & Plan (01/14/2023 1:00 AM COMMUNITY SERVICE REPRESENTATIVE): Blood pressure stable Continue Coreg Assessment & Plan (12/18/2022 12:20 PM CDT): - Hold coreg, lasix, aldactone and losartan overnight. Can resume at discharge. Assessment & Plan (07/10/2022 2:19 PM CDT): Well controlled. Continue Carvedilol, losartan and spironolactone. Dyslipidemia 04/26/2020 Assessment & Plan (02/27/2023 3:33 PM COMMUNITY SERVICE REPRESENTATIVE): Continue ezetimibe Assessment & Plan (07/10/2022 2:18 PM CDT): Last LDL at goal of < 70. Continue Zetia and Ketchum 3. 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 *Physical exam and other tests (Pap test) as indicated on each visit. Please continue to see your primary care physician/BARREL INSPECTOR TIGHT for all general health care recommended for a female your age. 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 Cotton [...] for counseling and possible acupuncture. 6) Dr. eBatty anti-inflammatory diet, avoid high consumption of soy [...] Received flu shot 13) [employer] at local [facility] REFERRALS [] Star [] [facility] Integrative Therapy [] [facility] Pastoral Services [employer] at the [facility] [] Other (Specify): ADDITIONAL RESOURCES Patients may have many questions and concerns after their cancer treatment ends. A list of local resources as provided below to assist you. [facility] cancer information center: [place] [employer] (ACS): www.acs.org National Cancer [place] (NCI): www.cancer.gov [place] Society of clinical oncology (ASCO): www.cancer.net K[employer]: www.komen.org [employer]: www.CommuniCliquetronZafgen Radiation therapy: www.rtanswers.org Patient signature: Eva/YVES/RN signature: Date delivered on: 02/04/2016 60 minutes of time were spent with the patient and over 50% of time was spent in counseling, discussing her issues, chief complaints, diet, exercise, prevention, supplements, etc. or in the coordination of care. Resolved Problems Problem Noted Date Diagnosed Date Resolved Date Malnutrition 02/27/2023 03/04/2023 Assessment & Plan (02/27/2023 3:29 PM COMMUNITY SERVICE REPRESENTATIVE): Presents with significant weight loss with examination revealing temporal depression, loss of buccal fat and shrunken cheeks Meets the criteria for malnutrition Plan: Will obtain RD consult Encourage PO intake (>50% of portion of meals) Assistance with meals as needed by family shine worker/provider team Weekly weights and charting Oral nutrition supplementation TID Nausea & vomiting 12/16/2022 03/04/2023 Assessment & Plan (12/17/2022 11:44 AM CDT): - supportive care with anti-emetics PRN Diverticulitis 09/04/2019 11/01/2019 Overview (09/04/2019): Added automatically from request for surgery [id number] Sigmoid diverticulitis 09/03/201910/31 Encounters Date Type Department Care Team Description 07/22/2024 1:00 PM CDT - 07/22/2024 6:42 PM CDT Hospital Encounter [facility] [address] [place] [address] Multiple myeloma, remission status unspecified (HCC) (Primary Dx) Discharge Disposition: Discharge to home or self care 07/16/2024 Orders Only [facility] Oncology [address] [place] [address] 6 [place] [address] Bailee Mares NP 07/11/2024 Telephone [facility] Gastroenterology [address] [place] [address] Advanced Medicine 12th [place] [address] [place] [address] Kacy Avila CMA 06/24/2024 9:00 AM CDT Infusion [facility] - Infusion [address] [facility] Floor 6 [place] [address] Multiple myeloma, remission status unspecified (HCC) (Primary Dx) 06/24/2024 8:00 AM CDT Office Visit [facility] Bone Marrow Transplant [facility] Floor 6 [place] [address] Bailee Mares NP Multiple myeloma, remission status unspecified (HCC) (Primary Dx) 06/24/2024 7:00 AM CDT Clinical Support [facility] - Lab Collection [facility] Floor 6 [place] [address] Multiple myeloma, remission status unspecified (HCC) 06/19/2024 Orders Only [facility] Bone Marrow Transplant [facility] [address] [address] Bailee Mares NP 06/17/2024 Orders Only [facility] Bone Marrow Transplant [address] [place] [phone] Bailee Mares NP 06/14/2024 12:49 AM CDT - 06/14/2024 5:17 AM CDT Emergency [facility] 1 [place] [address] Krista Borden MD Rhinovirus infection (Primary Dx) Discharge Disposition: Discharge to home or self care 05/20/2024 10:00 AM CDT Infusion [facility] - Infusion [address] [facility] Floor 6 [place] [address] Multiple myeloma not having achieved remission (HCC) (Primary Dx); Multiple myeloma, remission status unspecified (HCC) 05/20/2024 9:00 AM CDT Clinical Support [facility] - Lab Collection [address] [place] [address] Floor 6 [place] [address] Multiple myeloma, remission status unspecified (HCC) 05/15/2024 10:30 AM CDT Office Visit [facility] Cardiology [address] [facility] Advanced Medicine 8th [place] [address] [place] [address] Aisha Simpson NP Heart failure with reduced ejection fraction (HCC) (Primary Dx) 05/14/2024 Orders Only [facility] Bone Marrow Transplant [address] [place] [address] 6 [place] [phone] Bailee Mares NP Multiple myeloma, remission status unspecified (HCC) (Primary Dx) from Last 3 Months Immunizations Immunization Administration [...] History Relation Name Comments Anesthesia problems Daughter Rodriguez layed emergence Cancer Father Hypertension Father Lung [...] pur e alcohol) occ glass of wine [facility] Utilities Answer Date Recorded In the past 12 months has th e [employer], gas, oil, or water [employer] threatened to shut off services in your [...] week 03/02/2023 How often do you attend [facility] or [employer]ybeter[employer] services? Never 03/02/2023 Do you belong to any clubs o r organizations such as yazidi groups, unions, fraternal or athletic groups, or [...] place to sleep or slept in a jail (including now)? No 03/02/2023 Personal Safety Answer Date Recorded Have you ever been in or are you currently in a harmful physical or emotional relationship or is someone making you feel afraid or unsafe? Denies 06/13/2024 Comments No Sex and Gender Information Value Date Recorded Sex Assigned at Not on file Legal Sex Female 10:03 AM COMMUNITY SERVICE REPRESENTATIVE Gender Identity Female 11/27/2023 9:47 AM CDT Sexual Orientation Not on file Obstetrics History Last Filed Vital Signs Vital Sign Reading Time Taken Comments Blood Pressure 127/65 07/22/2024 1:10 PM CDT Pulse 78 07/22/2024 1:10 PM CDT Temperature 36.8 C (98.2 F) 07/22/2024 1:10 PM CDT Respiratory Rate 16 07/22/2024 1:10 PM CDT Oxygen Saturation 98% 07/22/2024 1:10 PM CDT Inhaled Oxygen Concentration - - Weight 58.2 kg (128 lb 4.8 oz) 07/22/2024 1:10 P M CDT Height 148.5 cm (4' 10.47) 06/24/2024 7:58 AM C DT Body Mass Index 26.39 06/24/2024 7:58 AM CDT Plan of Treatment Health Maintenance Due Date Last Done Comments DTaP/Tdap/Td Vaccine (1 - Tdap) 1951 Hepatitis B Screening 08/28/1959 Zoster Vaccine (1 of 2) 1960 Well Visit 65+ 2006 Osteoporosis Screening-Bone Density Scan 10/15/2010 10/15/2008 Covid-19 Vaccine (4 - 2023-2 5 season) 2023 11/19/2020, 05/11/2020, 04/20/2020 Depression Screening 02/27/2024 02/26/2023, 01/13/2023, 12/16/2022, Additional history exists Fall Risk Assessment 08/06/2024 08/07/2023 Influenza Vaccine (Season Ended) 2024 11/28/2022, 11/26/2020, 11/19/2020, Additional history exists Pneumococcal vaccine 65+ Completed 018, 02/26/2015, 01/23/2012 Medical Devices Implanted Type Area Vegetable Sorter Device Identifier Shelf Expiration Date Model / Serial / Lot [employer] Inc/C R Bard [id number] Monofilament Soft Lightweight Low Profile Square - [id number] Implanted:Qty: 1 on 03/27/2022 by Shiva Galdamez MD at [facility] Mesh N/A: Abdomen [employer]/C R Bard [id number] 07/23/2026 [id number] / / [id number] [employer] Bandar [id number] Synergy Xd Monorail 2.5mm 16mm 144cm Delivery System 1 Access - [id number] - [id number] Implanted:Qty: 1 on 12/24/2020 by Juan Diego Etienne MD at [facility] Stent Left: Coronary [employer] Bandar 07/12/2022 [id number] / [id number] / [id number] Bilateral Total Knee Arthroplasty Knee [employer] Excela Low Porfile Power Port 8fr 1.6mm 1 Lumen [id number] - [id number] Implanted:Qty: 1 on 08/01/2022 at [facility] Ang[employer] 03/26/2027 [id number] Procedures Procedure Name Priority Date/Time Associated Diagnosis Comments EGFR STAT 07/22/2024 1:17 PM CDT Multiple myeloma, remission status unspecified (HCC) DIFFERENTIAL AUTO Routine 07/22/2024 1:1 7 PM CDT Multiple myeloma, remission status unspecified (HCC) CBC WITH AUTO DIFFERENTIAL Routine 07/22/2024 1:17 PM CDT Multiple myeloma, remission status unspecified (HCC) IMMUNOTYPING Routine 07/22/2024 1:17 PM CDT Multiple myeloma, remission status unspecified (HCC) IMMUNOGLOBULIN FREE LIGHT CHAINS Routine 07/22/2024 1:17 PM CDT Multiple myeloma, remission status unspecified (HCC) IGM Routine 07/22/2024 1:17 PM CDT Multiple myeloma, remission status unspecified (HCC) PROTEIN ELECTROPHORESIS, WITH REFLEX, SERUM Routine 07/22/2024 1:17 PM CDT Multiple myeloma, remission status unspecified (HCC) IGG Routine 07/22/2024 1:17 PM CDT Multiple myeloma, remission status unspecified (HCC) IGA Routine 07/22/2024 1:17 PM CDT Multiple myeloma, remission status unspecified (HCC) LACTATE DEHYDROGENASE Routine 07/22/2024 1:17 PM CDT Multiple myeloma, remission status unspecified (HCC) COMPREHENSIVE METABOLIC PANEL STAT 07/22/2024 1:17 PM CDT Multiple myeloma, remission status unspecified (HCC) EGFR STAT 06/24/2024 7:30 AM CDT Multiple [...] CDT Multiple myeloma, remission status unspecified (HCC) from Last 3 Months Results * Immunotyping, serum with interpretation (07/22/2024 1:17 PM CDT) Immunosubtraction Please see comment Comment: SMALL IGG KAPPA PARAPROTEIN Reviewed and signed by Car Luis MD, PhD 07/23/2024 Blood 07/22/2024 1:17 PM CDT 07/22/2024 1:43 PM CDT Bailee Mares NP LAB BLOOD ORDERABLES Yulia l Result [facility] Department [place] [address] * eGFR (07/22/2024 1:17 PM CDT) Pathologist [facility] eGFR 62 >=60 mL/min/1. 73 m2 Comment: [...] interpretive data was last reviewed 2020. Blood 07/22/2024 1:17 PM CDT 07/22/2024 1:43 PM CDT Bailee Mares NP LAB BLOOD ORDERABLES Yulia lobo Result [facility] Department [place] [address] * (ABNORMAL) Differential, auto (07/22/2024 1:17 PM CDT) Pathologist [facility] Neutrophil abs 3.60 1.50 - 6.50 K/cumm Imm gran abs 0.01 0.00 - 0.10 K/cumm [facility] Lymphocyte abs 0.54(L) 0.80 - 3.30 K/cumm [facility] Monocyte abs 0.63 0.20 - 0.80 K/cumm [facility] Eosinophil abs 0.12 0.00 - 0.50 K/cumm [facility] Basophil abs 0.03 0.00 - 0.10 K/cumm [facility] Neutrophil pct 73.0 % [facility] Comment: Interpretive Data Percent cell count reference ranges are not reported, since discordance with absolute values may lead to misinterpretation of CBC data. Current Interpretive Data was last revised on 2017. Imm gran pct 0.2 % [facility] Comment: Interpretive Data Percent cell count reference ranges are not reported, since discordance with absolute values may lead to misinterpretation of CBC data. Current Interpretive Data was last revised on 2017. Lymphocyte pct 11.0 % [facility] Comment: Interpretive Data Percent cell count reference ranges are not reported, since discordance with absolute values may lead to misinterpretation of CBC data. Current Interpretive Data was last revised on 2017. Monocyte pct 12.8 % [facility] Comment: Interpretive Data Percent cell count reference ranges are not reported, since discordance with absolute values may lead to misinterpretation of CBC data. Current Interpretive Data was last revised on 2017. Eosinophil pct 2.4 % [facility] Comment: Interpretive Data Percent cell count reference ranges are not reported, since discordance with absolute values may lead to misinterpretation of CBC data. Current Interpretive Data was last revised on 2017. Basophil pct 0.6 % [facility] Comment: Interpretive Data Percent cell count reference ranges are not reported, since discordance with absolute values may lead to misinterpretation of CBC data. Current Interpretive Data was last revised on 2017. Blood 07/22/2024 1:17 PM CDT 07/22/2024 1:43 PM CDT Bailee Mares [employer] LAB BLOOD ORDERABLES Yulia l Result [facility] [place] [address] * (ABNORMAL) Immunoglobulin free light chains (07/22/2024 1:17 PM CDT) Skyline-Ganipa/Lambda ratio BJ 0.40 0.26 - 1.65 Comment: Interpretive Data The Binding Site FreeLite assay procedure was used. Results from different manufacturers or methods may not be comparable. Serial testing should be performed using the same methods and instrumentation. Current Interpretive Data was last revised on 2023. Skyline-Ganipa free light chain BJ 0.31(L) 0.33 - 1.94 mg/dL [facility] Comment: Interpretive Data The Binding Site FreeLite assay procedure was used. Results from different manufacturers or methods may not be comparable. Serial testing should be performed using the same methods and instrumentation. Current Interpretive Data was last revised on 2023. Lambda free light chain BJ 0.78 0.57 - 2.63 mg/dL [facility] Comment: Interpretive Data The Binding Site FreeLite assay procedure was used. Results from different manufacturers or methods may not be comparable. Serial testing should be performed using the same methods and instrumentation. Current Interpretive Data was last revised on 2023. Blood 07/22/2024 1:17 PM CDT 07/22/2024 1:43 PM CDT Bailee Mares [employer] LAB BLOOD ORDERABLES Yluia l Result Performing Organization Address City/[facility]/ZIP Co de Phone Number [facility] [place] [address] * (ABNORMAL) CBC with auto differential (07/22/2024 1:17 PM CDT) [facility] WBC 4.93 3.80 - 9.90 K/cumm Hgb 11.4(L) 11.9 - 15.5 g/dL [facility] Hct 34.6(L) 35.6 - 45.5 % [facility] Plt 233 150 - 400 K/cumm [facility] MPV 10.8 9.1 - 12.3 fL [facility] RBC 3.34(L) 3.90 - 5.20 M/cumm [facility] MCV 103.6(H) 81.3 - 96.4 fL [facility] MCH 34.1(H) 27.1 - 33.3 pg [facility] MCHC 32.9 32.3 - 35.7 g/dL [facility] RDW CV 13.2 11.1 - 14.9 % [facility] RDW SD 49.8(H) 35.7 - 48.1 fL [facility] NRBC abs 0.00 0.00 - 0.01 K/cumm [facility] Blood 07/22/2024 1:17 PM CDT 07/22/2024 1:43 PM CDT Bailee Mares [employer] LAB BLOOD ORDERABLES Yulia l Result Performing Organization Address [facility]/ZIP Co de Phone Number [facility] Department [place] [address] * (ABNORMAL) Protein electrophoresis with reflex, serum with interpretation (07/22/2024 1:17 PM CDT) Pathologist [facility] Protein, sr 6.2 6.2 - 8.2 g/dL Albumin 4.2 3.2 - 5.0 g/dL [facility] Alpha-1 globulin 0.2 0.2 - 0.4 g/dL [facility] Alpha-2 globulin 0.9 0.5 - 1.0 g/dL [facility] Beta-1 globulin 0.4 0.3 - 0.6 g/dL [facility] Beta-2 globulin 0.2 0.2 - 0.6 g/dL [facility] Gamma globulin 0.3(L) 0.5 - 1.7 g/dL [facility] SPEP interp Please see comment [facility] Comment: Abnormal restricted peak in gamma region Quantity of restricted peak too low to quantify accurately Decreased gamma globulins Electrophoretic pattern appears similar to previous sample 06/25/2024 See immunotyping for further information Reviewed and signed by Car Luis MD, PhD 07/23/2024 Blood 07/22/2024 1:17 PM CDT 07/22/2024 1:43 PM CDT Bailee Mares [employer] LAB BLOOD ORDERABLES Yulia l Result [facility] Department [place] [address] * Lactate dehydrogenase (LD) (07/22/2024 1:17 PM CDT) Pathologist [facility] Lactate dehydrogenase (LDH) 220 100 - 250 Units/L Blood 07/22/2024 1:17 PM CDT 07/22/2024 1:43 PM CDT Bailee Mares [employer] LAB BLOOD ORDERABLES Yulia l Result [facility] Department [place] [address] * (ABNORMAL) IgA (07/22/2024 1:17 PM CDT) Immunoglobulin A <50(L) 70 - 400 mg/dL Blood 07/22/2024 1:17 PM CDT 07/22/2024 1:43 PM CDT Bailee Mares NP LAB BLOOD ORDERABLES Yulia l Result Performing Organization Address City/[facility] Co de Phone Number [facility] [place] [address] * (ABNORMAL) IgM (07/22/2024 1:17 PM CDT) [facility] Immunoglobulin M <25(L) 40 - 230 mg/dL Blood 07/22/2024 1:17 PM CDT 07/22/2024 1:43 PM CDT Bailee Mares NP LAB BLOOD ORDERABLES Yulia l Result Performing Organization Address [facility] de Phone Number [facility] Department [place] [address] * (ABNORMAL) IgG (07/22/2024 1:17 PM CDT) [facility] Immunoglobulin G <300(L) 700 - 1,600 mg/dL Blood 07/22/2024 1:17 PM CDT 07/22/2024 1:43 PM CDT Bailee Mares [employer] LAB BLOOD ORDERABLES Yulia l Result Performing Organization Address [facility] de Phone Number [facility] [place] [address] * (ABNORMAL) Comprehensive metabolic panel (07/22/2024 1:17 PM CDT) [facility] Sodium 140 135 - 145 mmol/L Potassium, pl 5.2(H) 3.3 - 4.9 mmol/L [facility] Chloride 104 97 - 110 mmol/L [facility] CO2 29 22 - 32 mmol/L [facility] Anion gap 7 2 - 15 mmol/L [facility] BUN 26(H) 6 - 25 mg/dL [facility] Creatinine 0.92 0.60 - 1.10 mg/dL [facility] Glucose 89 70 - 199 mg/dL [facility] Comment: Interpretive Data Fasting glucose >/= [...] interpretive data was last revised 2022. Calcium 10.2 8.5 - 10.3 mg/dL [facility] Bilirubin, total 0.3 0.1 - 1.2 mg/dL [facility] Protein, pl 6.6 6.5 - 8.5 g/dL [facility] Albumin 4.5 3.5 - 5.0 g/dL [facility] Alk phos 52 40 - 130 Units/L [facility] ALT 15 7 - 45 Units/L [facility] AST 20 10 - 45 Units/L [facility] Blood 07/22/2024 1:17 PM CDT 07/22/2024 1:43 PM CDT Bailee Mares [employer] LAB BLOOD ORDERABLES Yulia l Result [facility] [place] [address] * Immunotyping, serum with interpretation (06/24/2024 7:30 AM CDT) Immunosubtraction Please see comment Comment: SMALL IGG KAPPA PARAPROTEIN Reviewed and signed by Brayan Ireladn MD 06/25/2024 Blood 06/24/2024 7:30 AM CDT 06/24/2024 8:43 AM CDT Suman Canales MD LAB BLOOD ORDER CRISTEL Final Result Performing Organization Address City/[facility] Co de Phone Number [facility] [place] [address] * eGFR (06/24/2024 7:30 AM CDT) eGFR [...] LAB BLOOD ORDER CRISTEL Final Result TA [facility]ter [facility] [place] [address] * Differential, auto (06/24/2024 7:30 AM CDT) Neutrophil abs 2.43 1.50 - 6.50 K/cumm Comment:Testing performed by : [facility], [address] [place] [phone] Lymphocyte abs 0.81 0.80 - 3.30 K/cumm [facility] Comment:Testing performed by : [facility], [address] [place] [phone] Monocyte abs 0.67 0.20 - 0.80 K/cumm [facility] Comment:Testing performed by : [facility], [address] [place], [place] [phone] Eosinophil abs 0.15 0.00 - 0.50 K/cumm [facility] Comment:Testing performed by : [facility], [address] [place], [place] [phone] Basophil abs 0.03 0.00 - 0.10 K/cumm [facility] Comment:Testing performed by : [facility], [address] [place], [place] [phone] Neutrophil pct 59.4 % [facility] Comment: Interpretive Data Percent cell count reference ranges are not reported, since discordance with absolute values may lead to misinterpretation of CBC data. Current Interpretive Data was last revised on 2017. Testing performed by: [facility], [address] [place], [place] [phone] Lymphocyte pct 19.9 % [facility] Comment: Interpretive Data Percent cell count reference ranges are not reported, since discordance with absolute values may lead to misinterpretation of CBC data. Current Interpretive Data was last revised on 2017. Testing performed by: [facility], [address] [place] [address] Monocyte pct 16.5 % [facility] Comment: Interpretive Data Percent cell count reference ranges are not reported, since discordance with absolute values may lead to misinterpretation of CBC data. Current Interpretive Data was last revised on 2017. Testing performed by: [facility], [address] [place] [phone] Eosinophil pct 3.6 % [facility] Comment: Interpretive Data Percent cell count reference ranges are not reported, since discordance with absolute values may lead to misinterpretation of CBC data. Current Interpretive Data was last revised on 2017. Testing performed by: [facility], [address] [place] [phone] Basophil pct 0.7 % [facility] Comment: Interpretive Data Percent cell count reference ranges are not reported, since discordance with absolute values may lead to misinterpretation of CBC data. Current Interpretive Data was last revised on 2017. Testing performed by: [facility], [address] [place] [phone] Blood 06/24/2024 7:30 AM CDT 06/24/2024 7:46 AM CDT Suman Canales MD LAB BLOOD ORDER CRISTEL Final Result TA KENDR[facility] [place] [address] * (ABNORMAL) Immunoglobulin free light chains (06/24/2024 7:30 AM CDT) Skyline-Ganipa/Lambda ratio BJ 0.35 0.26 - 1.65 Comment: Interpretive Data The Binding Site FreeLite assay procedure was used. Results from different manufacturers or methods may not be comparable. Serial testing should be performed using the same methods and instrumentation. Current Interpretive Data was last revised on 2023. Skyline-Ganipa free light chain BJ 0.25(L) 0.33 - 1.94 mg/dL [facility] Comment: Interpretive Data The Binding Site FreeLite assay procedure was used. Results from different manufacturers or methods may not be comparable. Serial testing should be performed using the same methods and instrumentation. Current Interpretive Data was last revised on 2023. Lambda free light chain BJ 0.72 0.57 - 2.63 mg/dL [facility] Comment: Interpretive Data The Binding Site FreeLite assay procedure was used. Results from different manufacturers or methods may not be comparable. Serial testing should be performed using the same methods and instrumentation. Current Interpretive Data was last revised on 2023. Blood 06/24/2024 7:30 AM CDT 06/24/2024 8:43 AM CDT Suman Canales MD LAB BLOOD ORDER CRISTEL Final Result TA KENDRICK [facility] Department [place] [address] * (ABNORMAL) CBC with auto differential (06/24/2024 7:30 AM CDT) WBC 4.09 3.80 - 9.90 K/cumm Comment:Testing performed by : [facility], [address] [place] [address] Hgb 11.5(L) 11.9 - 15.5 g/dL TA KENDRICK Comment:Testing performed by : [facility], [address] [place] [address] Hct 34.1(L) 35.6 - 45.5 % CERENEDINA KENDRICK Comment:Testing performed by : [facility], [address] [place] [address] Plt 226 150 - 400 K/cumm CERENEDINA KENDRICK Comment:Testing performed by : [facility], [address] [place] [address] MPV 9.0 6.8 - 10.4 fL CERENEDINA [facility]J Comment:Testing performed by : [facility], [address] [place] [address] RBC 3.36(L) 3.90 - 5.20 M/cumm CERENEDINA [facility]J Comment:Testing performed by : [facility], [address] [place] [address] MCV 101.4(H) 81.3 - 96.4 fL CERENEDINA BJ Comment:Testing performed by : [facility], [address] [place] [address] MCH 34.3(H) 27.1 - 33.3 pg [facility] Comment:Testing performed by : [facility], [address] [place] [address] MCHC 33.8 32.3 - 35.7 g/dL CERENEDINA [facility]J Comment:Testing performed by : [facility], [address] [place] [phone] RDW CV 13.7 11.1 - 14.9 % [facility] Comment:Testing performed by : [facility], [address] [place] [phone] NRBC abs 0.00 0.00 - 0.01 K/cumm [facility] Comment:Testing performed by : [facility], [address] [place] [phone] Blood 06/24/2024 7:30 AM CDT 06/24/2024 7:46 AM CDT Suman Canales MD LAB BLOOD ORDER CRISTEL Final Result [facility] Department [place] [address] * (ABNORMAL) Protein electrophoresis with reflex, serum with interpretation (06/24/2024 7:30 AM CDT) Protein, sr 5.9(L) 6.2 - 8.2 g/dL Albumin 4.0 3.2 - 5.0 g/dL [facility] Alpha-1 globulin 0.3 0.2 - 0.4 g/dL [facility] Alpha-2 globulin 0.8 0.5 - 1.0 g/dL [facility] Beta-1 globulin 0.4 0.3 - 0.6 g/dL [facility] Beta-2 globulin 0.2 0.2 - 0.6 g/dL [facility] Gamma globulin 0.3(L) 0.5 - 1.7 g/dL [facility] SPEP interp Please see comment [facility] Comment: Abnormal restricted peak in gamma region Quantity of restricted peak too low to quantify accurately Decreased gamma globulins Electrophoretic pattern appears similar to previous sample 05/21/2024 *See immunotyping for further information Reviewed and signed by Brayan Ireland MD 06/26/2024 Blood 06/24/2024 7:30 AM CDT 06/24/2024 8:43 AM CDT us Suman Canales MD LAB BLOOD ORDER CRISTEL Final Result Performing Organization Address [facility] Co de Phone Number [facility] [place] [address] * Lactate dehydrogenase (LD) (06/24/2024 7:30 AM CDT) Lactate dehydrogenase (LDH) 188 100 - 250 Units/L Blood 06/24/2024 7:30 AM CDT 06/24/2024 7:48 AM CDT us Suman Canales MD LAB BLOOD ORDER CRISTEL Final Result Performing Organization Address [facility] de Phone Number [facility] [place] [address] * (ABNORMAL) IgA (06/24/2024 7:30 AM CDT) Immunoglobulin A <50(L) 70 - 400 mg/dL Blood 06/24/2024 7:30 AM CDT 06/24/2024 8:05 AM CDT us Suman Canales MD LAB BLOOD ORDER CRISTEL Final Result Performing Organization Address [facility] de Phone Number [facility] [place] [address] * (ABNORMAL) IgM (06/24/2024 7:30 AM CDT) Immunoglobulin M <25(L) 40 - 230 mg/dL Blood 06/24/2024 7:30 AM CDT 06/24/2024 8:05 AM CDT Suman Canales MD LAB BLOOD ORDER CRISTEL Final Result Performing Organization Address City/[facility]/ZIP Co de Phone Number [facility] [place] [address] * (ABNORMAL) IgG (06/24/2024 7:30 AM CDT) [facility] Immunoglobulin G <300(L) 700 - 1,600 mg/dL Blood 06/24/2024 7:30 AM CDT 06/24/2024 8:05 AM CDT Suman Canales MD LAB BLOOD ORDER CRISTEL Final Result Performing Organization Address [facility] de Phone Number [facility] Department [place] [address] * (ABNORMAL) Comprehensive metabolic panel (06/24/2024 7:30 AM CDT) [facility] Sodium 141 135 - 145 mmol/L Potassium, pl 4.6 3.3 - 4.9 mmol/L [facility] Chloride 105 97 - 110 mmol/L [facility] CO2 31 22 - 32 mmol/L [facility] Anion gap 5 2 - 15 mmol/L [facility] BUN 13 6 - 25 mg/dL [facility] Creatinine 0.92 0.60 - 1.10 mg/dL [facility] Glucose 100 70 - 199 mg/dL [facility] Comment: Interpretive Data Fasting glucose >/= [...] 2022. Calcium 9.7 8.5 - 10.3 mg/dL [facility] Bilirubin, total 0.4 0.1 - 1.2 mg/dL [facility] Protein, pl 6.2(L) 6.5 - 8.5 g/dL [facility] Albumin 4.2 3.5 - 5.0 g/dL [facility] Alk phos 43 40 - 130 Units/L [facility] ALT 13 7 - 45 Units/L [facility] AST 23 10 - 45 Units/L [facility] Blood 06/24/2024 7:30 AM CDT 06/24/2024 7:48 AM CDT us Suman Canales MD LAB BLOOD ORDER CRISTEL Final Result [facility] [place] [address] * Lactate (06/14/2024 1:20 AM CDT) Pathologist [facility] Lactate 1.1 0.7 - 2.0 mmol/L Blood 06/14/2024 1:20 AM CDT 06/14/2024 1:36 AM CDT us José Miguel Hernandez MD LAB BLOOD ORDERABLES Yulia l Result Performing Organization Address City/[facility]/ZIP Co de Phone Number [facility] [place] [address] * (ABNORMAL) Blood gas, venous (06/14/2024 1:20 AM CDT) pH, Venous 7.48(H) 7.32 - 7.43 PCO2, Venous 31(L) 40 - 50 mmHg [facility] PO2, Venous 30 mmHg [facility] Comment: Interpretive Data No Reference Range Established Current Interpretive Data was last revised on 2017. HCO3 Venous, Calculated 24 20 - 30 mmol/L [facility] BE, venous 0 mmol/L [facility] Comment: Interpretive Data No Reference Range Established Current Interpretive Data was last revised on 2017. Blood 06/14/2024 1:20 AM CDT 06/14/2024 1:28 AM CDT José Miguel Hernandez MD LAB BLOOD ORDERABLES Yulia lobo Result Performing Organization Address [facility] de Phone Number [facility] Department [place] [address] * Troponin I high-sensitivity 4-hour (06/14/2024 1:16 AM CDT) Trop I hs 7 <=17 ng/L Comment: Interpretive Data For further hscTnI resources including the diagnostic algorithm and an aid in interpretation, copy and paste this link: [email or web address].org/show/[email or web address] Current Interpretive Data last revised 2019. Trop I hs delta 1 ng/L [facility] Trop I hs interp Insignificant [facility] Blood 06/14/2024 1:16 AM CDT 06/14/2024 1:35 AM CDT Vlad Horton MD LAB BLOOD ORDERABLES F inal Result Performing Organization Address [facility] de Phone Number [facility] Department [place] [address] * XR Chest PA Lateral 2 Views [...] 2hr, 4hr, 6hr) (06/13/2024 8:47 PM CDT) Pathologist [facility] Trop I hs 6 <=17 ng/L Comment: Interpretive Data For further hscTnI resources including the diagnostic algorithm and an aid in interpretation, copy and paste this link: [email or web address].[email or web address]/show/[email or web address] Current Interpretive Data last revised 2019. Blood 06/13/2024 8:47 PM CDT 06/13/2024 9:03 PM CDT us Krista Borden MD LAB BLOOD ORDERABLES Final Result [facility] Department of Laboratories [place], [place] [id number] * eGFR (06/13/2024 8:47 PM CDT) Pathologist [facility] eGFR 63 >=60 mL/min/1. 73 m2 Comment: [...] of Race in Diagnosing Kidney Disease, JASN 202). The CKD-EPI equation should not be used for patients with unstable renal function and has not been validated in children and those over 70. Current interpretive data was last reviewed 2020. Blood 06/13/2024 8:47 PM CDT 06/13/2024 9:03 PM CDT us Krista Borden MD LAB BLOOD ORDERABLES Final Result [facility] [place] [address] * (ABNORMAL) Differential, auto (06/13/2024 8:47 PM CDT) Neutrophil abs 3.42 1.50 - 6.50 K/cumm Imm gran abs 0.02 0.00 - 0.10 K/cumm [facility] Lymphocyte abs 0.68(L) 0.80 - 3.30 K/cumm [facility] Monocyte abs 0.81(H) 0.20 - 0.80 K/cumm [facility] Eosinophil abs 0.16 0.00 - 0.50 K/cumm [facility] Basophil abs 0.03 0.00 - 0.10 K/cumm [facility] Neutrophil pct 66.8 % [facility] Comment: Interpretive Data Percent cell count reference ranges are not reported, since discordance with absolute values may lead to misinterpretation of CBC data. Current Interpretive Data was last revised on 2017. Imm gran pct 0.4 % [facility] Comment: Interpretive Data Percent cell count reference ranges are not reported, since discordance with absolute values may lead to misinterpretation of CBC data. Current Interpretive Data was last revised on 2017. Lymphocyte pct 13.3 % [facility] Comment: Interpretive Data Percent cell count reference ranges are not reported, since discordance with absolute values may lead to misinterpretation of CBC data. Current Interpretive Data was last revised on 2017. Monocyte pct 15.8 % [facility] Comment: Interpretive Data Percent cell count reference ranges are not reported, since discordance with absolute values may lead to misinterpretation of CBC data. Current Interpretive Data was last revised on 2017. Eosinophil pct 3.1 % [facility] Comment: Interpretive Data Percent cell count reference ranges are not reported, since discordance with absolute values may lead to misinterpretation of CBC data. Current Interpretive Data was last revised on 2017. Basophil pct 0.6 % [facility] Comment: Interpretive Data Percent cell count reference ranges are not reported, since discordance with absolute values may lead to misinterpretation of CBC data. Current Interpretive Data was last revised on 2017. Blood 06/13/2024 8:47 PM CDT 06/13/2024 9:03 PM CDT us Krista Borden MD LAB BLOOD ORDERABLES Final Result [facility] Department [place] [address] * (ABNORMAL) CBC with auto differential (06/13/2024 8:47 PM CDT) WBC 5.12 3.80 - 9.90 K/cumm Hgb 13.0 11.9 - 15.5 g/dL [facility] Hct 37.7 35.6 - 45.5 % [facility] Plt 226 150 - 400 K/cumm [facility] MPV 10.8 9.1 - 12.3 fL [facility] RBC 3.78(L) 3.90 - 5.20 M/cumm [facility] MCV 99.7(H) 81.3 - 96.4 fL [facility] MCH 34.4(H) 27.1 - 33.3 pg [facility] MCHC 34.5 32.3 - 35.7 g/dL [facility] RDW CV 13.1 11.1 - 14.9 % [facility] RDW SD 47.9 35.7 - 48.1 fL [facility] NRBC abs 0.00 0.00 - 0.01 K/cumm [facility] Blood 06/13/2024 8:47 PM CDT 06/13/2024 9:03 PM CDT us Krista Borden MD LAB BLOOD ORDERABLES Final Result [facility] [place] [address] * Comprehensive metabolic panel (06/13/2024 8:47 PM CDT) Sodium 144 135 - 145 mmol/L Potassium, pl 4.1 3.3 - 4.9 mmol/L [facility] Chloride 107 97 - 110 mmol/L [facility] CO2 26 22 - 32 mmol/L [facility] Anion gap 11 2 - 15 mmol/L [facility] BUN 15 6 - 25 mg/dL [facility] Creatinine 0.91 0.60 - 1.10 mg/dL [facility] Glucose 86 70 - 199 mg/dL [facility] Comment: Interpretive Data Fasting glucose >/= [...] 2022. Calcium 9.6 8.5 - 10.3 mg/dL [facility] Bilirubin, total 0.3 0.1 - 1.2 mg/dL [facility] Protein, pl 6.8 6.5 - 8.5 g/dL [facility] Albumin 4.4 3.5 - 5.0 g/dL [facility] Alk phos 45 40 - 130 Units/L [facility] ALT 20 7 - 45 Units/L [facility] AST 39 10 - 45 Units/L [facility] Blood 06/13/2024 8:47 PM CDT 06/13/2024 9:03 PM CDT us Krista Borden MD LAB BLOOD ORDERABLES Final Result [facility] [place] [address] * ECG 12-LEAD (06/13/2024 8:37 PM CDT) Narrative [facility] - 06/13/2024 8:37 PM CDT Isabella Foley [...] Borden MD ECG ORDERABLES Final Resu lt [facility] * (ABNORMAL) Respiratory pathogen panel Nasopharyngeal (06/13/2024 8:35 PM CDT) Pathologist [facility] Influenza A RNA Not Detected Not Detected Influenza B RNA Not Detected Not Detected [facility] RSV RNA Not Detected Not Detected [facility] COVID-19 RNA Not Detected Not Detected [facility] Coronavirus 229E RNA Not Detected Not Detected [facility] Coronavirus HKU1 RNA Not Detected Not Detected [facility] Coronavirus NL63 RNA Not Detected Not Detected [facility] Coronavirus OC43 RNA Not Detected Not Detected [facility] Adenovirus DNA Not Detected Not Detected [facility] Metapneumovirus RNA Not Detected Not Detected [facility] Rhinovirus/Enterov irus RNA Detected(A) Not Detected [facility] Parainfluenza 1 RNA Not Detected Not Detected [facility] Parainfluenza 2 RNA Not Detected Not Detected [facility] Parainfluenza 3 RNA Not Detected Not Detected [facility] Parainfluenza 4 RNA Not Detected Not Detected [facility] B. pertussis DNA Not Detected Not Detected [facility] B. parapertussis DNA Not Detected Not Detected [facility] C. pneumoniae DNA Not Detected Not Detected [facility] M. pneumoniae DNA Not Detected Not Detected [facility] Nasopharyngeal 06/13/2024 8: 35 PM CDT 06/13/2024 8:43 PM CDT Flori [facility] - 06/13/2024 9:44 PM CDT Is the Patient experiencing symptoms consistent with COVID?->Yes Surveillance testing for transplant patient?->No Interpretive Data The youmag FilmArray Respiratory Panel (RP2.1) assay is a [...] assay has FDA clearance for testing of [employer] swabs. The performance of additional specimen types has been assessed by the performing laboratory. The performance characteristics of this assay have been determined by [facility] Molecular Infectious Disease [facility]. Current interpretive data was last revised on 21. us Krista Borden MD LAB MICROBIOLOGY - GENERAL ORDERABLES Final Result Performing Organization Address City/[facility]/ZIP Co de Phone Number [facility] Department [place] [address] * Immunotyping, serum with interpretation (05/20/2024 9:18 AM CDT) Immunosubtraction Please see comment Comment: SMALL IGG KAPPA PARAPROTEIN Reviewed and signed by Vipul Stuart MD, PhD 05/21/2024 Blood 05/20/2024 9:18 AM CDT 05/20/2024 10:30 AM CDT Bailee Mares NP LAB BLOOD ORDERABLES Yulia l Result Performing Organization Address City/[facility] Co de Phone Number [facility] Department [place] [address] * eGFR (05/20/2024 9:18 AM CDT) eGFR [...] CDT 05/20/2024 9:28 AM CDT Bailee Mares [employer] BLOOD ORDERABLES Yulia lobo Result [facility] Department [place] [address] * (ABNORMAL) Differential, auto (05/20/2024 9:18 AM CDT) Neutrophil abs 5.1 1.5 - 6.5 K/cumm Comment:Testing performed by : [facility], [address] [place] [phone] Lymphocyte abs 0.4(L) 0.8 - 3.3 K/cumm [facility] Comment:Testing performed by : [facility], [address] [place] [phone] Monocyte abs 0.7 0.2 - 0.8 K/cumm [facility] Comment:Testing performed by : [facility], [address] [place] [phone] Eosinophil abs 0.1 0.0 - 0.5 K/cumm [facility] Comment:Testing performed by : [facility], [address] [place] [phone] Basophil abs 0.1 0.0 - 0.1 K/cumm [facility] Comment:Testing performed by : [facility], [address] [place] [phone] Neutrophil pct 79.1 % [facility] Comment: Interpretive Data Percent cell count reference ranges are not reported, since discordance with absolute values may lead to misinterpretation of CBC data. Current Interpretive Data was last revised on 2017. Testing performed by: [facility], [address] [place] [phone] Lymphocyte pct 5.5 % [facility] Comment: Interpretive Data Percent cell count reference ranges are not reported, since discordance with absolute values may lead to misinterpretation of CBC data. Current Interpretive Data was last revised on 2017. Testing performed by: [facility], [address] [place] [phone] Monocyte pct 11.7 % [facility] Comment: Interpretive Data Percent cell count reference ranges are not reported, since discordance with absolute values may lead to misinterpretation of CBC data. Current Interpretive Data was last revised on 2017. Testing performed by: [facility], [address] [place] [phone] Eosinophil pct 1.5 % [facility] Comment: Interpretive Data Percent cell count reference ranges are not reported, since discordance with absolute values may lead to misinterpretation of CBC data. Current Interpretive Data was last revised on 2017. Testing performed by: [facility], [address] [place] [phone] Basophil pct 2.2 % [facility] Comment: Interpretive Data Percent cell count reference ranges are not reported, since discordance with absolute values may lead to misinterpretation of CBC data. Current Interpretive Data was last revised on 2017. Testing performed by: [facility], [address] [place] [phone] Blood 05/20/2024 9:18 AM CDT 05/20/2024 9:25 AM CDT Bailee Mares [employer] BLOOD ORDERABLES Yulia l Result [facility] Department [place] [address] * (ABNORMAL) Immunoglobulin free light chains (05/20/2024 9:18 AM CDT) Skyline-Ganipa/Lambda ratio [facility] 0.85 0.26 - 1.65 Comment: Interpretive Data The Binding Site FreeLite assay procedure was used. Results from different manufacturers or methods may not be comparable. Serial testing should be performed using the same methods and instrumentation. Current Interpretive Data was last revised on 2023. Skyline-Ganipa free light chain [facility] 0.33 0.33 - 1.94 mg/dL [facility] Comment: Interpretive Data The Binding Site FreeLite assay procedure was used. Results from different manufacturers or methods may not be comparable. Serial testing should be performed using the same methods and instrumentation. Current Interpretive Data was last revised on 2023. Lambda free light chain [facility] 0.39(L) 0.57 - 2.63 mg/dL [facility] Comment: Interpretive Data The Binding Site FreeLite assay procedure was used. Results from different manufacturers or methods may not be comparable. Serial testing should be performed using the same methods and instrumentation. Current Interpretive Data was last revised on 2023. Blood 05/20/2024 9:18 AM CDT 05/20/2024 10:30 AM CDT Bailee Mares [employer] BLOOD ORDERABLES Yulia lobo Result [facility] Department [place] [address] * (ABNORMAL) CBC with auto differential (05/20/2024 9:18 AM CDT) WBC 6.4 3.8 - 9.9 K/cumm Comment:Testing performed by : [facility], [address] [place] [phone] Hgb 12.1 11.9 - 15.5 g/dL [facility] Comment:Testing performed by : [facility], [address] [place] [address] Hct 35.9 35.6 - 45.5 % [facility] Comment:Testing performed by : [facility], [address] [place] [address] Plt 230 150 - 400 K/cumm [facility] Comment:Testing performed by : [facility], [address] [place] [address] MPV 9.0 6.8 - 10.4 fL [facility] Comment:Testing performed by : [facility], [address] [place], [place] [phone] RBC 3.51(L) 3.90 - 5.20 M/cumm [facility] Comment:Testing performed by : [facility], [address] [place], [place] [phone] MCV 102.1(H) 81.3 - 96.4 fL [facility] Comment:Testing performed by : [facility], [address] [place], [place] [phone] MCH 34.3(H) 27.1 - 33.3 pg [facility] Comment:Testing performed by : [facility], [address] [place], [place] [phone] MCHC 33.6 32.3 - 35.7 g/dL [facility] Comment:Testing performed by : [facility], [address] [place], [place] [phone] RDW CV 14.6 11.1 - 14.9 % [facility] Comment:Testing performed by : [facility], [address] [place], [place] [phone] NRBC abs 0.00 0.00 - 0.01 K/cumm [facility] Comment:Testing performed by : [facility], [address] [place], [place] [phone] Blood 05/20/2024 9:18 AM CDT 05/20/2024 9:25 AM CDT Bailee Mares [employer] BLOOD ORDERABLES Yulia lobo Result [facility] Department [place] [address] * (ABNORMAL) Protein electrophoresis with reflex, serum with interpretation (05/20/2024 9:18 AM CDT) Protein, sr 6.2 6.2 - 8.2 g/dL Albumin 4.2 3.2 - 5.0 g/dL [facility] Alpha-1 globulin 0.3 0.2 - 0.4 g/dL [facility] Alpha-2 globulin 0.9 0.5 - 1.0 g/dL [facility] Beta-1 globulin 0.4 0.3 - 0.6 g/dL [facility] Beta-2 globulin 0.2 0.2 - 0.6 g/dL [facility] Gamma globulin 0.2(L) 0.5 - 1.7 g/dL [facility] SPEP interp Please see comment [facility] Comment: No apparent monoclonal peak Decreased gamma globulins Electrophoretic pattern appears similar to previous sample 04/23/2024 See immunotyping for further information Reviewed and signed by Vipul Stuart MD, PhD 05/21/2024 Blood 05/20/2024 9:18 AM CDT 05/20/2024 10:30 AM CDT Bailee Mares LAB BLOOD ORDERABLES Yulia l Result Performing Organization Address City/[facility]/ZIP Co de Phone Number [facility] Department [place] [address] * Lactate dehydrogenase (LD) (05/20/2024 9:18 AM CDT) Pathologist [facility] Lactate dehydrogenase (LDH) 182 100 - 250 Units/L Blood 05/20/2024 9:18 AM CDT 05/20/2024 9:28 AM CDT Bailee Mares LAB BLOOD ORDERABLES Yulia l Result [facility] [place] [address] * (ABNORMAL) IgA (05/20/2024 9:18 AM CDT) Immunoglobulin A <50(L) 70 - 400 mg/dL Blood 05/20/2024 9:18 AM CDT 05/20/2024 10:03 AM CDT Bailee Mares [employer] BLOOD ORDERABLES Yulia l Result Performing Organization Address City/[facility] Co de Phone Number [facility] [place] [address] * (ABNORMAL) IgM (05/20/2024 9:18 AM CDT) [facility] Immunoglobulin M <25(L) 40 - 230 mg/dL Blood 05/20/2024 9:18 AM CDT 05/20/2024 10:03 AM CDT Bailee Mares [employer] BLOOD ORDERABLES Yulia l Result Performing Organization Address [facility] de Phone Number [facility] [place] [address] * (ABNORMAL) IgG (05/20/2024 9:18 AM CDT) [facility] Immunoglobulin G <300(L) 700 - 1,600 mg/dL Blood 05/20/2024 9:18 AM CDT 05/20/2024 10:03 AM CDT Bailee Mares [employer] BLOOD ORDERABLES Yulia l Result Performing Organization Address [facility] [place] [address] * Comprehensive metabolic panel (05/20/2024 9:18 AM CDT) [facility] Sodium 142 135 - 145 mmol/L Potassium, pl 4.3 3.3 - 4.9 mmol/L [facility] Chloride 106 97 - 110 mmol/L [facility] CO2 26 22 - 32 mmol/L [facility] Anion gap 10 2 - 15 mmol/L [facility] BUN 16 6 - 25 mg/dL [facility] Creatinine 0.82 0.60 - 1.10 mg/dL [facility] Glucose 152 70 - 199 mg/dL [facility] Comment: Interpretive Data Fasting glucose >/= [...] 2022. Calcium 9.3 8.5 - 10.3 mg/dL [facility] Bilirubin, total 0.3 0.1 - 1.2 mg/dL [facility] Protein, pl 6.5 6.5 - 8.5 g/dL [facility] Albumin 4.2 3.5 - 5.0 g/dL [facility] Alk phos 71 40 - 130 Units/L [facility] ALT 11 7 - 45 Units/L [facility] AST 19 10 - 45 Units/L [facility] Blood 05/20/2024 9:18 AM CDT 05/20/2024 9:28 AM CDT Bailee Mares NP LAB BLOOD ORDERABLES Yulia lobo Result [facility] [place] [address] from Last 3 Months Insurance MEDICARE [employer] MEDICARE SUPPLEMENT MEDICARE [facility] MEDICARE MEDICARE [facility] MEDICARE [facility] MEDICARE SUPPLEMENT Advance Directives For more information, please contact: [phone] * Full Code (Latest Code Status on [...] 11:50 PM 01/19/2023 9:49 PM Care Teams Date Night Caregiver Relationship Specialty Start Date End Date Low Alvarez MD [address] [place] [address] PCP - General Internal Medicine 10/22/19 Trae Thompson MD Surgeon Colon and Rectal Surgery 06/25/19 Onofre James MD PhD Consulting Physician Gastroenterology 06/25/19 Brown Handley MD [address] [place] [address] [employer] Gastroenterology 12/10/19 Juan Diego Etienne MD [address] [place] [address] Referring Physician Cardiology 01/04/22
--- OUTSIDE RECORDS SUMMARY | 2024-07-28 14:31 | XMS_ITS | Referral Summary ---
[facility] Organization [facility] Address [address] [place] [address] Care Team Providers Care Laboratory Asst Name Role Phone Trae Thompson MD Unavailable [phone] Onofre James MD PhD Unavailable Low Alvarez MD Primary Care Provider Brown Handley MD Unavailable Juan Diego Etienne MD Unavailable [phone] Encounters Date Type Department Care Team Description 07/22/2024 1:00 PM CDT - 07/22/2024 6:42 PM CDT Hospital Encounter [facility] [place] [facility]) [facility] [place] [address] Multiple myeloma, remission status unspecified (HCC) (Primary Dx) Discharge Disposition: Discharge to home or self care 07/16/2024 Orders Only [facility] Oncology [address] Floor 6 [place] [address] Bailee Mares NP 07/11/2024 Telephone [facility] Gastroenterology [address] Advanced Medicine 12th [place] [address] [place] [phone] Kcay Avila CMA 06/24/2024 8:00 AM CDT Office Visit [facility] Bone Marrow Transplant [address] 6 [place] [address] Bailee Mares NP Multiple myeloma, remission status unspecified (HCC) (Primary Dx) 06/24/2024 7:00 AM CDT Clinical Support [facility] - Lab Collection [address] [place] [address] Multiple myeloma, remission status unspecified (HCC) 06/24/2024 9:00 AM CDT Infusion [facility] Infusion [address] Floor 6 [place] [address] Multiple myeloma, remission status unspecified (HCC) (Primary Dx) 06/19/2024 Orders Only [facility] Bone Marrow Transplant [address] Floor 6 [place] [address] Bailee Mares NP 06/17/2024 Orders Only [facility] Bone Marrow Transplant [address] 6 [place] [address] Bailee Mares NP 06/14/2024 12:49 AM CDT - 06/14/2024 5:17 AM CDT Emergency [facility] Emergency Department 1 [place] [address] Krista Borden MD Rhinovirus infection (Primary Dx) Discharge Disposition: Discharge to home or self care 05/20/2024 9:00 AM CDT Clinical Support [facility] - Lab Collection [address] [facility] [address] [place] [address] Multiple myeloma, remission status unspecified (HCC) 05/20/2024 10:00 AM CDT Infusion [facility] Infusion [address] [place] [address] Multiple myeloma not having achieved remission (HCC) (Primary Dx); Multiple myeloma, remission status unspecified (HCC) 05/15/2024 10:30 AM CDT Office Visit [facility] Cardiology [facility] 8th [place] [address] [place] [address] Aisha Simpson NP Heart failure with reduced ejection fraction (HCC) (Primary Dx) 05/14/2024 Orders Only [facility] Bone Marrow Transplant [address] 6 [place] [address] Bailee Mares NP Multiple myeloma, remission status unspecified (HCC) (Primary Dx) from Last 3 Months Allergies Active Allergy [...] tablet (50 mcg total) by mouth daily 023 Active aspirin 81 mg enteric coated tablet Take 1 tablet (81 mg total) by mouth daily Active bempedoic acid-ezetimibe (Nexlizet) 180-10 mg tablet Take by mouth Active cholecalciferol (VITAMIN D-3) 2000 unit tablet Take by mouth daily Active senna (SENOKOT) 8.6 mg tablet Take 1 tablet by mouth daily as needed for constipation 20 tablet 024 Active naloxone (NARCAN) 4 mg/actuation spray,non-aerosol Administer [...] tablet (10 mg total) by mouth daily 023 Active prochlorperazine (COMPAZINE) 10 mg tabletIndications :Multiple [...] Inpatient Care Coordination Overview Diagnosis [place] Floor [address] Treatment Plan Stacie/velcade/dex Reason for Admission 02/26/23 - recurrent LLQ Abd pain, N/V Transplant/IEC Planning BMT/IEC Plan HLA typing/IDMs [] Insurance Approval [] Discharge Planning Anticipated Discharge Date 03/02 Patient Education Completed [x] Issue to be Resolved Before Discharge Discharge Disposition HOME Requests Sent to Case Management, Pharmacy PA Team, or Medical Assistants Post-Discharge Follow-Up Living Situation/Distance from [facility] Caregiver Lab/Transfusion Frequency Labs are stable Venous Access & Care implanted vascular device Local Oncologist Contact Phone: Fax: Post-Discharge Office Visit (H30) KSG 03/27 Miscellaneous Notes: Problem Noted Date Diagnosed Date Esophageal thickening 08/01/2023 Abnormal gastrointestinal PET scan 08/01/[address] scan 03/13/2023 History of colon polyps 03/13/2023 Anxiety 03/03/2023 Assessment & Plan (03/03/2023 1:12 PM REGISTERED VETERINARY TECHNICIAN): Continue Sertraline 50 mg daily. LLQ abdominal pain 02/27/2023 Assessment & Plan (03/03/2023 1:11 PM REGISTERED VETERINARY TECHNICIAN): Presents with 3 days of diarrhea, nausea [...] therapy for acute diverticul[facility] at the [facility] given prior GI history, prior [...] months. Assessment & Plan (02/27/2023 3:30 PM REGISTERED VETERINARY TECHNICIAN): EF35% TTE 05/29/22 No features of active heart failure or volume overload. GMDT: coreg 3.125 mg BID-hold for dehydration and poor oral intake Suspected Pneumonia 01/14/2023 Assessment & Plan (01/14/2023 1:05 AM REGISTERED VETERINARY TECHNICIAN): Recent COVID-19 tested positive on 01/03/2023 treated [...] 01/14/2023 Assessment & Plan (01/14/2023 1:04 AM REGISTERED VETERINARY TECHNICIAN): Continue home Breo and Singulair Abnormal urinalysis 01/14/2023 Assessment & Plan (01/14/2023 1:07 AM REGISTERED VETERINARY TECHNICIAN): UA was positive for 1+ leukocyte esterase, 11-20 WBCs, 2+ bacteria. Denies any urinary frequency/dysuria/hematuria Status post Macrobid 1 dose in the [facility] Already on IV ceftriaxone for suspected pneumonia Moderate protein-calorie malnutrition 01/14/2023 Hx of multiple myeloma 01/13/2023 Vertigo 12/18/2022 Assessment & Plan (01/14/2023 1:07 AM REGISTERED VETERINARY TECHNICIAN): Meclizine p.r.n. Assessment & Plan (12/18/2022 12:23 PM CDT): Symptoms consistent with vertigo. - Discharge home with meclizine QID PRN - Counseled pt on safety and fall prevention - Ambulating well with cane Hypothyroidism, unspecified 12/17/2022 Assessment & Plan (01/14/2023 1:00 AM REGISTERED VETERINARY TECHNICIAN): Continue levothyroxine 50 mcg daily Assessment & Plan (12/17/2022 11:47 AM CDT): - c/w home synthroid. Anemia due to chemotherapy 07/11/2022 History of ischemic Cardiomyopathy 07/10/2022 Assessment & Plan (01/14/2023 1:02 AM REGISTERED VETERINARY TECHNICIAN): Now with recovered LVEF( previously EF 46% [...] 06/23/2022 Cancer Staging:Clinical stage from 07/11/2022:RISS Stage III(Mhht-3-hdhqzbpepjtwx (mg/L): 27.7, Albumin (g/dL): 3.6, ISS: Stage III, High-risk cytogenetics: Present, LDH: Normal) - Signed by Tiago Currie MD on 07/11/2022 Assessment & Plan (03/01/2023 5:41 PM REGISTERED VETERINARY TECHNICIAN): Diagnosed May 2022. IgA Lambda Multiple Myeloma, [...] prn. Assessment & Plan (01/14/2023 12:59 AM REGISTERED VETERINARY TECHNICIAN): s/[id number] of daratumumab/Bortezomib/Dexamethasone on 01/02/23 Transfuse per [...] (01/09/2022): Added automatically from request for surgery [id number] CAD (coronary artery disease) 04/06/2021 Assessment & Plan (01/14/2023 1:02 AM REGISTERED VETERINARY TECHNICIAN): s/p PCI-LAD 12/24/2020 Continue aspirin, Coreg Assessment & Plan (07/10/2022 2:22 PM CDT): Denies any chest pain. Does admit to some dyspnea with exertion such as taking the stairs. Unclear etiology as it could be multi-factorial secondary to deconditioning, multiple myeloma and anemia (most recent hemoglobin 8.7). Continue aspirin, carvedilol and losartan. Essential hypertension 08/02/2020 Assessment & Plan (01/14/2023 1:00 AM REGISTERED VETERINARY TECHNICIAN): Blood pressure stable Continue Coreg Assessment & Plan (12/18/2022 12:20 PM CDT): - Hold coreg, lasix, aldactone and losartan overnight. Can resume at discharge. Assessment & Plan (07/10/2022 2:19 PM CDT): Well controlled. Continue Carvedilol, losartan and spironolactone. Dyslipidemia 04/26/2020 Assessment & Plan (02/27/2023 3:33 PM REGISTERED VETERINARY TECHNICIAN): Continue ezetimibe Assessment & Plan (07/10/2022 2:18 PM CDT): Last LDL at goal of < 70. Continue Zetia and [place] 3. Of note, intolerant to statins in [...] (09/30/2019): Added automatically from request for surgery [id number] Adenomatous polyp of colon 06/25/2019 Gastroesophageal reflux disease 11/03/2014 Assessment & Plan (01/14/2023 1:00 AM REGISTERED VETERINARY TECHNICIAN): Continue PPI Assessment & Plan (12/17/2022 11:45 [...] ER(+) IL(+) Her 2 (-) Ki-67 37% 02/26/ LN [...] III [] IV ER: Positive IL: Positive [id number]: Negative Surgery: [x] Yes [] No Surgery date: 11/09/2015 Surgical procedures/location/findings: Bilateral mastectomies with sentinel lymph node biopsy on the right. 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 [employer] has a variant classification program which performs [...] other tests as indicated on each visit LOGISTICS SOLUTION MANAGER Continue your yearly visit. *Physical exam and other tests (Pap test) as indicated on each visit. Please continue to see your primary care physician/LOGISTICS SOLUTION MANAGER for all general health care recommended for a female your age. Possible late and/or correction effects that someone with this type of [...] scheduled for 02/08/2016 at 11:00 at the [facility] office 2) Follow up with Dr. Cotton scheduled [...] libido- physical exercise recommended. Can refer to [place] program for counseling and possible acupuncture. 6) [...] [facility] REFERRALS [] Star [] [facility] Integrative Therapy [] [facility] Pastoral Services [facility] at the [facility] [] Other (Specify): ADDITIONAL RESOURCES Patients may have many questions and concerns after their cancer treatment ends. A list of local resources as provided below to assist you. [facility] cancer information mark: [place] Cancer Society (ACS): www.acs.org National Cancer [place] (NCI): www.cancer.gov [place] Society of clinical oncology (ASCO): www.cancer.net Komen: www.komen.org Livestrong: www.incir.comtronCogentus Pharmaceuticals Radiation therapy: www.rtanswers.org Patient signature: M.D./TORSION SPRING COILING MACHINE SETTER/RN signature: Date delivered on: 02/04/2016 60 minutes of time were spent with the patient and over 50% of time was spent in counseling, discussing her issues, chief complaints, diet, exercise, prevention, supplements, etc. or in the coordination of care. Resolved Problems Problem Noted Date Diagnosed Date Resolved Date Malnutrition 02/27/2023 03/04/2023 Assessment & Plan (02/27/2023 3:29 PM REGISTERED VETERINARY TECHNICIAN): Presents with significant weight loss with examination revealing temporal depression, loss of buccal fat and shrunken cheeks Meets the criteria for malnutrition Plan: Will obtain RD consult Encourage PO intake (>50% of portion of meals) Assistance with meals as needed by family corrugator operator/provider team Weekly weights and charting Oral nutrition supplementation TID Nausea & vomiting 12/16/2022 03/04/2023 Assessment & Plan (12/17/2022 11:44 AM CDT): - supportive care with anti-emetics PRN Diverticulitis 09/04/2019 11/01/2019 Overview (09/04/2019): Added automatically from request for surgery [id number] Sigmoid diverticulitis 09/03/201910/31 Immunizations Immunization Administration Dates [...] pur e alcohol) occ glass of wine [employer] Answer Date Recorded In the past 12 months has [employer], [employer], oil, or water App Partner threatened to shut off services in your [...] week 03/02/2023 How often do you attend [facility] or jainism services? Never 03/02/2023 Do you belong to any clubs o r organizations such as quaker groups, unions, fraternal or athletic groups, or [...] place to sleep or slept in a residential (including now)? No 03/02/2023 Personal Safety Answer Date Recorded Have you ever been in or are you currently in a harmful physical or emotional relationship or is someone making you feel afraid or unsafe? Denies 06/13/2024 Comments No Sex and Gender Information Value Date Recorded Sex Assigned at Not on file Legal Sex Female 10:03 AM REGISTERED VETERINARY TECHNICIAN Gender Identity Female 11/27/2023 9:47 AM CDT [...] on file Medical Devices Implanted Type Area Nicker And Breaker Device Identifier Shelf Expiration Date Model / Serial / Lot Davol Inc/C R Bard [id number] Monofilament Soft Lightweight Low Profile Square - [id number] Implanted:Qty: 1 on 03/27/2022 by Shiva Galdamez MD at [facility] Mesh N/A: Abdomen [employer] Inc/C R Bard [id number] 07/23/2026 [id number] / / [id number] [place] [employer] Bandar [id number] Synergy Xd Monorail 2.5mm 16mm 144cm Delivery System 1 Access - [id number] - [id number] Implanted:Qty: 1 on 12/24/2020 by Juan Diego Etienne MD at [facility] Stent Left: Coronary [place] [employer] Bandar 07/12/2022 [id number] / [id number] / [id number] Bilateral Total Knee Arthroplasty Knee Angio Dynamics Excela Low Porfile Power Port 8fr 1.6mm 1 Lumen [id number] - [id number] Implanted:Qty: 1 on 08/01/2022 at [facility] Angio Dynamics 03/26/2027 [id number] 1 0 / / [id number] Procedures Procedure Name Priority Date/Time Associated Diagnosis [...] with interpretation (07/22/2024 1:17 PM CDT) Pathologist [facility] Immunosubtraction Please see comment Comment: SMALL IGG KAPPA PARAPROTEIN Reviewed and signed by Car Luis MD, PhD 07/23/2024 Blood 07/22/2024 1:17 PM CDT 07/22/2024 1:43 PM CDT Bailee Mares NP LAB BLOOD ORDERABLES Yulia l Result Performing Organization Address [facility] Co de Phone Number [facility] [place] [address] * eGFR (07/22/2024 1:17 PM CDT) Pathologist [facility] eGFR 62 >=60 mL/min/1. 73 m2 Comment: [...] ORDERABLES Yulia l Result Performing Organization Address [facility]/ZIP Co de Phone Number [facility] Department [place] [address] * (ABNORMAL) Differential, auto (07/22/2024 1:17 PM CDT) Neutrophil abs 3.60 1.50 - 6.50 K/cumm Imm gran abs 0.01 0.00 - 0.10 K/cumm [facility] Lymphocyte abs 0.54(L) 0.80 - 3.30 K/cumm [facility] Monocyte abs 0.63 0.20 - 0.80 K/cumm [facility] Eosinophil abs 0.12 0.00 - 0.50 K/cumm [facility] Basophil abs 0.03 0.00 - 0.10 K/cumm [facility] Neutrophil pct 73.0 % [facility] Comment: Interpretive Data Percent cell count reference ranges are not reported, since discordance with absolute values may lead to misinterpretation of CBC data. Current Interpretive Data was last revised on 2017. Imm gran pct 0.2 % [facility] Comment: Interpretive Data Percent cell count reference ranges are not reported, since discordance with absolute values may lead to misinterpretation of CBC data. Current Interpretive Data was last revised on 2017. Lymphocyte pct 11.0 % [facility] Comment: Interpretive Data Percent cell count reference ranges are not reported, since discordance with absolute values may lead to misinterpretation of CBC data. Current Interpretive Data was last revised on 2017. Monocyte pct 12.8 % [facility] Comment: Interpretive Data Percent cell count reference ranges are not reported, since discordance with absolute values may lead to misinterpretation of CBC data. Current Interpretive Data was last revised on 2017. Eosinophil pct 2.4 % [facility] Comment: Interpretive Data Percent cell count reference ranges are not reported, since discordance with absolute values may lead to misinterpretation of CBC data. Current Interpretive Data was last revised on 2017. Basophil pct 0.6 % [facility] Comment: Interpretive Data Percent cell count reference ranges are not reported, since discordance with absolute values may lead to misinterpretation of CBC data. Current Interpretive Data was last revised on 2017. Blood 07/22/2024 1:17 PM CDT 07/22/2024 1:43 PM CDT Bailee Mares TORSION SPRING COILING MACHINE SETTER LAB BLOOD ORDERABLES Yulia l Result Performing Organization Address [facility] Co de Phone Number [facility] Department [place] [address] * (ABNORMAL) Immunoglobulin free light chains (07/22/2024 1:17 PM CDT) Pathologist [facility] Selman/Lambda ratio BJ 0.40 0.26 - 1.65 Comment: Interpretive Data The Binding Site FreeLite assay procedure was used. Results from different manufacturers or methods may not be comparable. Serial testing should be performed using the same methods and instrumentation. Current Interpretive Data was last revised on 2023. Selman free light chain BJ 0.31(L) 0.33 - 1.94 mg/dL [facility] Comment: Interpretive Data The Binding Site FreeLite assay procedure was used. Results from different manufacturers or methods may not be comparable. Serial testing should be performed using the same methods and instrumentation. Current Interpretive Data was last revised on 2023. Lambda free light chain BJ 0.78 0.57 - 2.63 mg/dL [facility] Comment: Interpretive Data The Binding Site FreeLite assay procedure was used. Results from different manufacturers or methods may not be comparable. Serial testing should be performed using the same methods and instrumentation. Current Interpretive Data was last revised on 2023. Blood 07/22/2024 1:17 PM CDT 07/22/2024 1:43 PM CDT Bailee Mares TORSION SPRING COILING MACHINE SETTER LAB BLOOD ORDERABLES Yulia l Result Performing Organization Address City/[facility]/ZIP Co de Phone Number [facility] Department [place] [address] * (ABNORMAL) CBC with auto differential (07/22/2024 1:17 PM CDT) Pathologist [facility] WBC 4.93 3.80 - 9.90 K/cumm Hgb 11.4(L) 11.9 - 15.5 g/dL [facility] Hct 34.6(L) 35.6 - 45.5 % [facility] Plt 233 150 - 400 K/cumm [facility] MPV 10.8 9.1 - 12.3 fL [facility] RBC 3.34(L) 3.90 - 5.20 M/cumm [facility] MCV 103.6(H) 81.3 - 96.4 fL [facility] MCH 34.1(H) 27.1 - 33.3 pg [facility] MCHC 32.9 32.3 - 35.7 g/dL [facility] RDW CV 13.2 11.1 - 14.9 % [facility] RDW SD 49.8(H) 35.7 - 48.1 fL [facility] NRBC abs 0.00 0.00 - 0.01 K/cumm [facility] Blood 07/22/2024 1:17 PM CDT 07/22/2024 1:43 PM CDT Bailee Mares TORSION SPRING COILING MACHINE SETTER LAB BLOOD ORDERABLES Yulia lobo Result [facility] Department [place] [address] * (ABNORMAL) Protein electrophoresis with reflex, serum with interpretation (07/22/2024 1:17 PM CDT) Protein, sr 6.2 6.2 - 8.2 g/dL Albumin 4.2 3.2 - 5.0 g/dL [facility] Alpha-1 globulin 0.2 0.2 - 0.4 g/dL [facility] Alpha-2 globulin 0.9 0.5 - 1.0 g/dL [facility] Beta-1 globulin 0.4 0.3 - 0.6 g/dL [facility] Beta-2 globulin 0.2 0.2 - 0.6 g/dL [facility] Gamma globulin 0.3(L) 0.5 - 1.7 g/dL [facility] SPEP interp Please see comment [facility] Comment: Abnormal restricted peak in gamma region Quantity of restricted peak too low to quantify accurately Decreased gamma globulins Electrophoretic pattern appears similar to previous sample 06/25/2024 See immunotyping for further information Reviewed and signed by Car Luis MD, PhD 07/23/2024 Blood 07/22/2024 1:17 PM CDT 07/22/2024 1:43 PM CDT us Bailee Mares TORSION SPRING COILING MACHINE SETTER LAB BLOOD ORDERABLES Yulia l Result Performing Organization Address City/State/[facility] [place] [address] * Lactate dehydrogenase (LD) (07/22/2024 1:17 PM CDT) Lactate dehydrogenase (LDH) 220 100 - 250 Units/L Blood 07/22/2024 1:17 PM CDT 07/22/2024 1:43 PM CDT Bailee Mares NP LAB BLOOD ORDERABLES Yulia l Result Performing Organization Address [facility] Co de Phone Number [facility] Department [place] [address] * (ABNORMAL) IgA (07/22/2024 1:17 PM CDT) Immunoglobulin A <50(L) 70 - 400 mg/dL Blood 07/22/2024 1:17 PM CDT 07/22/2024 1:43 PM CDT Bailee Mares NP LAB BLOOD ORDERABLES Yulia l Result [facility] [place] [address] * (ABNORMAL) IgM (07/22/2024 1:17 PM CDT) Pathologist [facility] Immunoglobulin M <25(L) 40 - 230 mg/dL Blood 07/22/2024 1:17 PM CDT 07/22/2024 1:43 PM CDT Bailee Clinegh TORSION SPRING COILING MACHINE SETTER LAB BLOOD ORDERABLES Yulia l Result Performing Organization Address [facility] Co de Phone Number [facility] Department [place] [address] * (ABNORMAL) IgG (07/22/2024 1:17 PM CDT) [facility] Immunoglobulin G <300(L) 700 - 1,600 mg/dL Blood 07/22/2024 1:17 PM CDT 07/22/2024 1:43 PM CDT [facility]LO[facility] ORDERABLES Yulia l Result Performing Organization Address [facility] de Phone Number [facility] [place] [address] * (ABNORMAL) Comprehensive metabolic panel (07/22/2024 1:17 PM CDT) [facility] Sodium 140 135 - 145 mmol/L Potassium, pl 5.2(H) 3.3 - 4.9 mmol/L [facility] Chloride 104 97 - 110 mmol/L [facility] CO2 29 22 - 32 mmol/L [facility] Anion gap 7 2 - 15 mmol/L [facility] BUN 26(H) 6 - 25 mg/dL [facility] Creatinine 0.92 0.60 - 1.10 mg/dL [facility] Glucose 89 70 - 199 mg/dL [facility] Comment: Interpretive Data Fasting glucose >/= [...] 2022. Calcium 10.2 8.5 - 10.3 mg/dL [facility] Bilirubin, total 0.3 0.1 - 1.2 mg/dL [facility] Protein, pl 6.6 6.5 - 8.5 g/dL [facility] Albumin 4.5 3.5 - 5.0 g/dL [facility] Alk phos 52 40 - 130 Units/L [facility] ALT 15 7 - 45 Units/L [facility] AST 20 10 - 45 Units/L [facility] Blood 07/22/2024 1:17 PM CDT 07/22/2024 1:43 PM CDT Bailee Mares NP LAB BLOOD ORDERABLES Yulia l Result [facility] [place] [address] * Immunotyping, serum with interpretation (06/24/2024 7:30 AM CDT) Pathologist [facility] Immunosubtraction Please see comment Comment: SMALL IGG KAPPA PARAPROTEIN Reviewed and signed by Brayan Ireland MD 06/25/2024 Blood 06/24/2024 7:30 AM CDT 06/24/2024 8:43 AM CDT Suman Canales MD LAB BLOOD ORDER CRISTEL Final Result [facility] [place] [address] * eGFR (06/24/2024 7:30 AM CDT) Pathologist [facility] eGFR 62 >=60 mL/min/1. 73 m2 Comment: [...] MD LAB BLOOD ORDER CRISTEL Final Result [facility] Department [place] [address] * Differential, auto (06/24/2024 7:30 AM CDT) Neutrophil abs 2.43 1.50 - 6.50 K/cumm Comment:Testing performed by : [facility], [address] [place] [phone] Lymphocyte abs 0.81 0.80 - 3.30 K/cumm [facility] Comment:Testing performed by : [facility], [address] [place] [phone] Monocyte abs 0.67 0.20 - 0.80 K/cumm TA [facility] Comment:Testing performed by : [facility], [address] [place] [phone] Eosinophil abs 0.15 0.00 - 0.50 K/cumm [facility] Comment:Testing performed by : [facility], [address] [place] [phone] Basophil abs 0.03 0.00 - 0.10 K/cumm CER[facility]EDINA K[facility]DR[facility] Comment:Testing performed by : [facility], [address] [place] [phone] Neutrophil pct 59.4 % [facility] KENDRICK Comment: Interpretive Data Percent cell count reference ranges are not reported, since discordance with absolute values may lead to misinterpretation of CBC data. Current Interpretive Data was last revised on 2017. Testing performed by: [facility], [address] [place] [phone] Lymphocyte pct 19.9 % [facility] KENDRICK Comment: Interpretive Data Percent cell count reference ranges are not reported, since discordance with absolute values may lead to misinterpretation of CBC data. Current Interpretive Data was last revised on 2017. Testing performed by: [facility], [address] [place] [phone] Monocyte pct 16.5 % [facility] K[facility]DR[facility] Comment: Interpretive Data Percent cell count reference ranges are not reported, since discordance with absolute values may lead to misinterpretation of CBC data. Current Interpretive Data was last revised on 2017. Testing performed by: [facility], [address] [place] [phone] Eosinophil pct 3.6 % [facility]ER[facility]INA KENDRICK Comment: Interpretive Data Percent cell count reference ranges are not reported, since discordance with absolute values may lead to misinterpretation of CBC data. Current Interpretive Data was last revised on 2017. Testing performed by: [facility], [address] [place] [phone] Basophil pct 0.7 % [facility]INA [facility] Comment: Interpretive Data Percent cell count reference ranges are not reported, since discordance with absolute values may lead to misinterpretation of CBC data. Current Interpretive Data was last revised on 2017. Testing performed by: [facility], [address] [place] [phone] Blood 06/24/2024 7:30 AM CDT 06/24/2024 7:46 AM CDT Suman Canales MD LAB BLOOD ORDER CRISTEL Final Result Performing Organization Address [facility] Co de Phone Number [facility] Department [place] [address] * (ABNORMAL) Immunoglobulin free light chains (06/24/2024 7:30 AM CDT) Pathologist [facility] Selman/Lambda ratio BJ 0.35 0.26 - 1.65 Comment: Interpretive Data The Binding Site FreeLite assay procedure was used. Results from different manufacturers or methods may not be comparable. Serial testing should be performed using the same methods and instrumentation. Current Interpretive Data was last revised on 2023. Selman free light chain BJ 0.25(L) 0.33 - 1.94 mg/dL [facility] Comment: Interpretive Data The Binding Site FreeLite assay procedure was used. Results from different manufacturers or methods may not be comparable. Serial testing should be performed using the same methods and instrumentation. Current Interpretive Data was last revised on 2023. Lambda free light chain [facility]H 0.72 0.57 - 2.63 mg/dL [facility] Comment: Interpretive Data The Binding Site FreeLite assay procedure was used. Results from different manufacturers or methods may not be comparable. Serial testing should be performed using the same methods and instrumentation. Current Interpretive Data was last revised on 2023. Blood 06/24/2024 7:30 AM CDT 06/24/2024 8:43 AM CDT Suman Canales MD LAB BLOOD ORDER CRISTEL Final Result Performing Organization Address City/[facility]/ZIP Co de Phone Number TA [facility] Department [place] [address] * (ABNORMAL) CBC with auto differential (06/24/2024 7:30 AM CDT) Pathologist [facility] WBC 4.09 3.80 - 9.90 K/cumm Comment:Testing performed by : [facility], [address] [place] [address] Hgb 11.5(L) 11.9 - 15.5 g/dL CERNER [facility] Comment:Testing performed by : [facility], [address] [place] [address] Hct 34.1(L) 35.6 - 45.5 % C[facility]ER [facility] Comment:Testing performed by : [facility], [address] [place] [address] Plt 226 150 - 400 K/cumm C[facility]ER [facility] Comment:Testing performed by : [facility], [address] [place], [place] [phone] MPV 9.0 6.8 - 10.4 fL [facility]ER [facility] Comment:Testing performed by : [facility], [address] [place], [place] [phone] RBC 3.36(L) 3.90 - 5.20 M/cumm CERNER BJ Comment:Testing performed by : [facility], [address] [place] [address] MCV 101.4(H) 81.3 - 96.4 fL C[facility]ER B[facility] Comment:Testing performed by : [facility], [address] [place] [address] MCH 34.3(H) 27.1 - 33.3 pg [facility] Comment:Testing performed by : [facility], [address] [place] [address] MCHC 33.8 32.3 - 35.7 g/dL C[facility] Comment:Testing performed by : [facility], [address] [place] [address] RDW CV 13.7 11.1 - 14.9 % CERNER [facility] Comment:Testing performed by : [facility], [address] [place] [address] NRBC abs 0.00 0.00 - 0.01 K/cumm C[facility]ER [facility] Comment:Testing performed by : [facility], [address] [place] [address], [place] [phone] Blood 06/24/2024 7:30 AM CDT 06/24/2024 7:46 AM CDT Suman Canales MD LAB BLOOD ORDER CRISTEL Final Result Performing Organization Address City/[facility]/ZIP Co de Phone Number TA [facility] Department [place] [address] * (ABNORMAL) Protein electrophoresis with reflex, serum with interpretation (06/24/2024 7:30 AM CDT) Pathologist [facility] Protein, sr 5.9(L) 6.2 - 8.2 g/dL Albumin 4.0 3.2 - 5.0 g/dL [facility] Alpha-1 globulin 0.3 0.2 - 0.4 g/dL [facility] Alpha-2 globulin 0.8 0.5 - 1.0 g/dL [facility] Beta-1 globulin 0.4 0.3 - 0.6 g/dL [facility] Beta-2 globulin 0.2 0.2 - 0.6 g/dL [facility] Gamma globulin 0.3(L) 0.5 - 1.7 g/dL [facility] SPEP interp Please see comment [facility] Comment: Abnormal restricted peak in gamma region Quantity of restricted peak too low to quantify accurately Decreased gamma globulins Electrophoretic pattern appears similar to previous sample 05/21/2024 *See immunotyping for further information Reviewed and signed by Brayan Ireland MD 06/26/2024 Blood 06/24/2024 7:30 AM CDT 06/24/2024 8:43 AM CDT Suman Canales MD LAB BLOOD ORDER CRISTEL Final Result TA [facility] [place] [address] * Lactate dehydrogenase (LD) (06/24/2024 7:30 AM CDT) Pathologist [facility] Lactate dehydrogenase (LDH) 188 100 - 250 Units/L Blood 06/24/2024 7:30 AM CDT 06/24/2024 7:48 AM CDT Suman Canales MD LAB BLOOD ORDER CRISTEL Final Result Performing Organization Address City/[facility] Co de Phone Number [facility] Department [place] [address] * (ABNORMAL) IgA (06/24/2024 7:30 AM CDT) Pathologist [facility] Immunoglobulin A <50(L) 70 - 400 mg/dL Blood 06/24/2024 7:30 AM CDT 06/24/2024 8:05 AM CDT Suman Canales MD LAB BLOOD ORDER CRISTEL Final Result Performing Organization Address [facility] Co de Phone Number [facility] [place] [address] * (ABNORMAL) IgM (06/24/2024 7:30 AM CDT) Pathologist [facility] Immunoglobulin M <25(L) 40 - 230 mg/dL Blood 06/24/2024 7:30 AM CDT 06/24/2024 8:05 AM CDT Suman Canales MD LAB BLOOD ORDER CRISTEL Final Result Performing Organization Address City/[facility] Co de Phone Number [facility] [place] [address] * (ABNORMAL) IgG (06/24/2024 7:30 AM CDT) Pathologist [facility] Immunoglobulin G <300(L) 700 - 1,600 mg/dL Blood 06/24/2024 7:30 AM CDT 06/24/2024 8:05 AM CDT Suman Canales MD LAB BLOOD ORDER CRISTEL Final Result [facility] Department [place] [address] * (ABNORMAL) Comprehensive metabolic panel (06/24/2024 7:30 AM CDT) Sodium 141 135 - 145 mmol/L Potassium, pl 4.6 3.3 - 4.9 mmol/L [facility] Chloride 105 97 - 110 mmol/L [facility] CO2 31 22 - 32 mmol/L [facility] Anion gap 5 2 - 15 mmol/L [facility] BUN 13 6 - 25 mg/dL [facility] Creatinine 0.92 0.60 - 1.10 mg/dL [facility] Glucose 100 70 - 199 mg/dL [facility] Comment: Interpretive Data Fasting glucose >/= [...] 2022. Calcium 9.7 8.5 - 10.3 mg/dL [facility] Bilirubin, total 0.4 0.1 - 1.2 mg/dL [facility] Protein, pl 6.2(L) 6.5 - 8.5 g/dL [facility] Albumin 4.2 3.5 - 5.0 g/dL [facility] Alk phos 43 40 - 130 Units/L [facility] ALT 13 7 - 45 Units/L [facility] AST 23 10 - 45 Units/L [facility] Blood 06/24/2024 7:30 AM CDT 06/24/2024 7:48 AM CDT Suman Canales MD LAB BLOOD ORDER CRISTEL Final Result Performing Organization Address City/[facility] Co de Phone Number [facility] Department [place] [address] * Lactate (06/14/2024 1:20 AM CDT) Pathologist [facility] Lactate 1.1 0.7 - 2.0 mmol/L Blood 06/14/2024 1:20 AM CDT 06/14/2024 1:36 AM CDT José Miguel Hernandez MD LAB BLOOD ORDERABLES Yulia l Result Performing Organization Address [facility] de Phone Number [facility] [place] [address] * (ABNORMAL) Blood gas, venous (06/14/2024 1:20 AM CDT) Pathologist [facility] pH, Venous 7.48(H) 7.32 - 7.43 PCO2, Venous 31(L) 40 - 50 mmHg [facility] PO2, Venous 30 mmHg [facility] Comment: Interpretive Data No Reference Range Established Current Interpretive Data was last revised on 2017. HCO3 Venous, Calculated 24 20 - 30 mmol/L [facility] BE, venous 0 mmol/L [facility] Comment: Interpretive Data No Reference Range Established Current Interpretive Data was last revised on 2017. Blood 06/14/2024 1:20 AM CDT 06/14/2024 1:28 AM CDT José Miguel Hernandez MD LAB BLOOD ORDERABLES Yulia l Result Performing Organization Address [facility] Co de Phone Number [facility] [place] [address] * Troponin I high-sensitivity 4-hour (06/14/2024 1:16 AM CDT) Trop I hs 7 <=17 ng/L Comment: Interpretive Data For further hscTnI resources including the diagnostic algorithm and an aid in interpretation, copy and paste this link: [email or web address].[email or web address]/show/[email or web address] Current Interpretive Data last revised 2019. Trop I hs delta 1 ng/L [facility] Trop I hs interp Insignificant [facility]ERNER [facility] Blood 06/14/2024 1:16 AM CDT 06/14/2024 1:35 AM CDT Vlad Horton MD LAB BLOOD ORDERABLES F inal Result [facility] [place] [address] * XR Chest PA Lateral 2 Views [...] it. Electronically signed by: Gianfranco Almendarez M.D. us Krista Borden MD IMG XR PROCEDURES Final Re sult * Troponin I high-sensitivity series (baseline, 2hr, 4hr, 6hr) (06/13/2024 8:47 PM CDT) Trop I hs 6 <=17 ng/L Comment: Interpretive Data For further hscTnI resources including the diagnostic algorithm and an aid in interpretation, copy and paste this link: [email or web address]/[email or web address] Current Interpretive Data last revised 2019. Blood 06/13/2024 8:47 PM CDT 06/13/2024 9:03 PM CDT us Krista Borden MD LAB BLOOD ORDERABLES Final Result [facility] [place] [address] * eGFR (06/13/2024 8:47 PM CDT) eGFR [...] Inclusion of Race in Diagnosing Kidney Disease, CHERELLE 2020). The CKD-EPI equation should not be used for patients with unstable renal function and has not been validated in children and those over 70. Current interpretive data was last reviewed 2020. Blood 06/13/2024 8:47 PM CDT 06/13/2024 9:03 PM CDT us Krista Borden MD LAB BLOOD ORDERABLES Final Result [facility] [place] [address] * (ABNORMAL) Differential, auto (06/13/2024 8:47 PM CDT) Neutrophil abs 3.42 1.50 - 6.50 K/cumm Imm gran abs 0.02 0.00 - 0.10 K/cumm [facility] Lymphocyte abs 0.68(L) 0.80 - 3.30 K/cumm [facility] Monocyte abs 0.81(H) 0.20 - 0.80 K/cumm [facility] Eosinophil abs 0.16 0.00 - 0.50 K/cumm [facility] Basophil abs 0.03 0.00 - 0.10 K/cumm [facility] Neutrophil pct 66.8 % [facility] Comment: Interpretive Data Percent cell count reference ranges are not reported, since discordance with absolute values may lead to misinterpretation of CBC data. Current Interpretive Data was last revised on 2017. Imm gran pct 0.4 % [facility] Comment: Interpretive Data Percent cell count reference ranges are not reported, since discordance with absolute values may lead to misinterpretation of CBC data. Current Interpretive Data was last revised on 2017. Lymphocyte pct 13.3 % [facility] Comment: Interpretive Data Percent cell count reference ranges are not reported, since discordance with absolute values may lead to misinterpretation of CBC data. Current Interpretive Data was last revised on 2017. Monocyte pct 15.8 % [facility] Comment: Interpretive Data Percent cell count reference ranges are not reported, since discordance with absolute values may lead to misinterpretation of CBC data. Current Interpretive Data was last revised on 2017. Eosinophil pct 3.1 % [facility] Comment: Interpretive Data Percent cell count reference ranges are not reported, since discordance with absolute values may lead to misinterpretation of CBC data. Current Interpretive Data was last revised on 2017. Basophil pct 0.6 % [facility] Comment: Interpretive Data Percent cell count reference ranges are not reported, since discordance with absolute values may lead to misinterpretation of CBC data. Current Interpretive Data was last revised on 2017. Blood 06/13/2024 8:47 PM CDT 06/13/2024 9:03 PM CDT us Krista Borden MD LAB BLOOD ORDERABLES Final Result [facility] [place] [address] * (ABNORMAL) CBC with auto differential (06/13/2024 8:47 PM CDT) WBC 5.12 3.80 - 9.90 K/cumm Hgb 13.0 11.9 - 15.5 g/dL [facility] Hct 37.7 35.6 - 45.5 % [facility] Plt 226 150 - 400 K/cumm [facility] MPV 10.8 9.1 - 12.3 fL [facility] RBC 3.78(L) 3.90 - 5.20 M/cumm [facility] MCV 99.7(H) 81.3 - 96.4 fL [facility] MCH 34.4(H) 27.1 - 33.3 pg [facility] MCHC 34.5 32.3 - 35.7 g/dL [facility] RDW CV 13.1 11.1 - 14.9 % [facility] RDW SD 47.9 35.7 - 48.1 fL [facility] NRBC abs 0.00 0.00 - 0.01 K/cumm [facility] Blood 06/13/2024 8:47 PM CDT 06/13/2024 9:03 PM CDT us Krista Borden MD LAB BLOOD ORDERABLES Final Result [facility] [place] [address] * Comprehensive metabolic panel (06/13/2024 8:47 PM CDT) Sodium 144 135 - 145 mmol/L Potassium, pl 4.1 3.3 - 4.9 mmol/L [facility] Chloride 107 97 - 110 mmol/L [facility] CO2 26 22 - 32 mmol/L [facility] Anion gap 11 2 - 15 mmol/L [facility] BUN 15 6 - 25 mg/dL [facility] Creatinine 0.91 0.60 - 1.10 mg/dL [facility] Glucose 86 70 - 199 mg/dL [facility] Comment: Interpretive Data Fasting glucose >/= [...] 2022. Calcium 9.6 8.5 - 10.3 mg/dL [facility] Bilirubin, total 0.3 0.1 - 1.2 mg/dL [facility] Protein, pl 6.8 6.5 - 8.5 g/dL [facility] Albumin 4.4 3.5 - 5.0 g/dL [facility] Alk phos 45 40 - 130 Units/L [facility] ALT 20 7 - 45 Units/L [facility] AST 39 10 - 45 Units/L [facility] Blood 06/13/2024 8:47 PM CDT 06/13/2024 9:03 PM CDT us Krista Borden MD LAB BLOOD ORDERABLES Final Result [facility] [place] [address] * ECG 12-LEAD (06/13/2024 8:37 PM CDT) Narrative [facility] - 06/13/2024 8:37 PM CDT Isabella Foley [...] previous EC07/25/2023 Comparison ECG info: New nonspecific EMELY in V4 without Sgarbossa criteria Interpretation: Interpretation: [...] previous EC07/25/2023 Comparison ECG info: New nonspecific EMELY in V4 without Sgarbossacriteria Interpretation: Interpretation: non-specific Recommended Follow-up: Recommended follow up: further workup in the ED Isabella Foley MD 06/13/242039 Krista Borden MD ECG ORDERABLES Final Resu lt [facility] * (ABNORMAL) Respiratory pathogen panel Nasopharyngeal (06/13/2024 8:35 PM CDT) Pathologist [facility] Influenza A RNA Not Detected Not Detected Influenza B RNA Not Detected Not Detected [facility] RSV RNA Not Detected Not Detected [facility] COVID-19 RNA Not Detected Not Detected [facility] Coronavirus 229E RNA Not Detected Not Detected [facility] Coronavirus HKU1 RNA Not Detected Not Detected [facility] Coronavirus NL63 RNA Not Detected Not Detected [facility] Coronavirus OC43 RNA Not Detected Not Detected [facility] Adenovirus DNA Not Detected Not Detected [facility] Metapneumovirus RNA Not Detected Not Detected [facility] Rhinovirus/Enterov irus RNA Detected(A) Not Detected [facility] Parainfluenza 1 RNA Not Detected Not Detected [facility] Parainfluenza 2 RNA Not Detected Not Detected [facility] Parainfluenza 3 RNA Not Detected Not Detected [facility] Parainfluenza 4 RNA Not Detected Not Detected [facility] B. pertussis DNA Not Detected Not Detected [facility] B. parapertussis DNA Not Detected Not Detected [facility] C. pneumoniae DNA Not Detected Not Detected [facility] M. pneumoniae DNA Not Detected Not Detected [facility] Nasopharyngeal 06/13/2024 8: 35 PM CDT 06/13/2024 8:43 PM CDT Narrative [facility] - 06/13/2024 9:44 PM CDT Is the Patient experiencing symptoms consistent with COVID?->Yes Surveillance testing for transplant patient?->No Interpretive Data The [employer] FilmArray Respiratory Panel (RP2.1) assay is a [...] assay has FDA clearance for testing of [employer] swabs. The performance of additional specimen types has been assessed by the performing laboratory. The performance characteristics of this assay have been determined by [facility]. Current interpretive data was last revised on 21. us Krista Borden MD LAB MICROBIOLOGY - GENERAL ORDERABLES Final Result TA [facility]ENDR[facility] [place] [address] * Immunotyping, serum with interpretation (05/20/2024 9:18 AM CDT) Immunosubtraction Please see comment Comment: SMALL IGG KAPPA PARAPROTEIN Reviewed and signed by Vipul Stuart MD, PhD 05/21/2024 Blood 05/20/2024 9:18 AM CDT 05/20/2024 10:30 AM CDT Bailee Mares NP LAB BLOOD ORDERABLES Yulia l Result Performing Organization Address [facility] Co de Phone Number [facility] [place] [address] * eGFR (05/20/2024 9:18 AM CDT) eGFR [...] ORDERABLES Yulia l Result Performing Organization Address City/[facility]/ZIP Co de Phone Number [facility] [place] [address] * (ABNORMAL) Differential, auto (05/20/2024 9:18 AM CDT) Neutrophil abs 5.1 1.5 - 6.5 K/cumm Comment:Testing performed by : [facility], [address] [place] [phone] Lymphocyte abs 0.4(L) 0.8 - 3.3 K/cumm [facility] Comment:Testing performed by : [facility], [address] [place], [place] [id number] Monocyte abs 0.7 0.2 - 0.8 K/cumm [facility] Comment:Testing performed by : [facility], [address] [place], [place] [phone] Eosinophil abs 0.1 0.0 - 0.5 K/cumm [facility] Comment:Testing performed by : [facility], [address] [place] [address] Basophil abs 0.1 0.0 - 0.1 K/cumm [facility] Comment:Testing performed by : [facility], [address] [place] [phone] Neutrophil pct 79.1 % [facility] Comment: Interpretive Data Percent cell count reference ranges are not reported, since discordance with absolute values may lead to misinterpretation of CBC data. Current Interpretive Data was last revised on 2017. Testing performed by: [facility], [address] [place] [phone] Lymphocyte pct 5.5 % [facility] Comment: Interpretive Data Percent cell count reference ranges are not reported, since discordance with absolute values may lead to misinterpretation of CBC data. Current Interpretive Data was last revised on 2017. Testing performed by: [facility], [address] [place] [phone] Monocyte pct 11.7 % [facility] Comment: Interpretive Data Percent cell count reference ranges are not reported, since discordance with absolute values may lead to misinterpretation of CBC data. Current Interpretive Data was last revised on 2017. Testing performed by: [facility], [address] [place] [phone] Eosinophil pct 1.5 % [facility] Comment: Interpretive Data Percent cell count reference ranges are not reported, since discordance with absolute values may lead to misinterpretation of CBC data. Current Interpretive Data was last revised on 2017. Testing performed by: [facility], [address] [place] [phone] Basophil pct 2.2 % [facility] Comment: Interpretive Data Percent cell count reference ranges are not reported, since discordance with absolute values may lead to misinterpretation of CBC data. Current Interpretive Data was last revised on 2017. Testing performed by: [facility], [address] [place] [phone] Blood 05/20/2024 9:18 AM CDT 05/20/2024 9:25 AM CDT Bailee Mares [employer] SETTER LAB BLOOD ORDERABLES Yulia l Result [facility] [place] [address] * (ABNORMAL) Immunoglobulin free light chains (05/20/2024 9:18 AM CDT) Selman/Lambda ratio BJ 0.85 0.26 - 1.65 Comment: Interpretive Data The Binding Site FreeLite assay procedure was used. Results from different manufacturers or methods may not be comparable. Serial testing should be performed using the same methods and instrumentation. Current Interpretive Data was last revised on 2023. Selman free light chain BJH 0.33 0.33 - [...] BJH 0.39(L) 0.57 - 2.63 mg/dL [facility] Comment: Interpretive Data The Binding Site FreeLite assay procedure was used. Results from different manufacturers or methods may not be comparable. Serial testing should be performed using the same methods and instrumentation. Current Interpretive Data was last revised on 2023. Blood 05/20/2024 9:18 AM CDT 05/20/2024 10:30 AM CDT Bailee Mares [employer]ORS[employer]ING [employer]IL[employer] MACHINE SETTER LAB BLOOD ORDERABLES Yulia lobo Result [facility] [place] [address] * (ABNORMAL) CBC with auto differential (05/20/2024 9:18 AM CDT) WBC 6.4 3.8 - 9.9 K/cumm Comment:Testing performed by : [facility], [address] [place] [address] Hgb 12.1 11.9 - 15.5 g/dL CERNER BJ Comment:Testing performed by : [facility], [address] [place] [address] Hct 35.9 35.6 - 45.5 % CERNER BJ Comment:Testing performed by : [facility], [address] [place] [address] Plt 230 150 - 400 K/cumm CERNER BJ Comment:Testing performed by : [facility], [address] [place] [address] MPV 9.0 6.8 - 10.4 fL CERNER BJ Comment:Testing performed by : [facility], [address] [place] [address] RBC 3.51(L) 3.90 - 5.20 M/cumm CERNER BJ Comment:Testing performed by : [facility], [address] [place] [address] MCV 102.1(H) 81.3 - 96.4 fL CERNER BJ Comment:Testing performed by : [facility], [address] [place], [place] [phone] MCH 34.3(H) 27.1 - 33.3 pg TA KENDRICK Comment:Testing performed by : [facility], [address] [place], [place] [phone] MCHC 33.6 32.3 - 35.7 g/dL TA KENDRICK Comment:Testing performed by : [facility], [address] [place], [place] [phone] RDW CV 14.6 11.1 - 14.9 % TA KENDRICK Comment:Testing performed by : [facility], [address] [place], [place] [phone] NRBC abs 0.00 0.00 - 0.01 K/cumm TA KENDRICK Comment:Testing performed by : [facility], [address] [place], [place] [phone] Blood 05/20/2024 9:18 AM CDT 05/20/2024 9:25 AM CDT Bailee Mares TORS[employer] MACHINE SETTER LAB BLOOD ORDERABLES Yulia lobo Result [facility] Department [place] [address] * (ABNORMAL) Protein electrophoresis with reflex, serum with interpretation (05/20/2024 9:18 AM CDT) Protein, sr 6.2 6.2 - 8.2 g/dL Albumin 4.2 3.2 - 5.0 g/dL [facility] Alpha-1 globulin 0.3 0.2 - 0.4 g/dL [facility] Alpha-2 globulin 0.9 0.5 - 1.0 g/dL [facility] Beta-1 globulin 0.4 0.3 - 0.6 g/dL [facility] Beta-2 globulin 0.2 0.2 - 0.6 g/dL [facility] Gamma globulin 0.2(L) 0.5 - 1.7 g/dL [facility] SPEP interp Please see comment [facility] Comment: No apparent monoclonal peak Decreased gamma globulins Electrophoretic pattern appears similar to previous sample 04/23/2024 See immunotyping for further information Reviewed and signed by Vipul Stuart MD, PhD 05/21/2024 Blood 05/20/2024 9:18 AM CDT 05/20/2024 10:30 AM CDT Bailee Mares T[employer] MACHINE SETTER LAB BLOOD ORDERABLES Yulia l Result Performing Organization Address City/[facility] Co de Phone Number [facility] [place] [address] * Lactate dehydrogenase (LD) (05/20/2024 9:18 AM CDT) Pathologist [facility] Lactate dehydrogenase (LDH) 182 100 - 250 Units/L Blood 05/20/2024 9:18 AM CDT 05/20/2024 9:28 AM CDT Bailee Mares T[employer] MACHINE SETTER LAB BLOOD ORDERABLES Yulia l Result Performing Organization Address [facility] Co de Phone Number [facility] Department [place] [address] * (ABNORMAL) IgA (05/20/2024 9:18 AM CDT) Pathologist [facility] Immunoglobulin A <50(L) 70 - 400 mg/dL Blood 05/20/2024 9:18 AM CDT 05/20/2024 10:03 AM CDT Bailee Mares [employer] MACHINE SETTER LAB BLOOD ORDERABLES Yulia l Result Performing Organization Address City/[facility] Co de Phone Number [facility] [place] [address] * (ABNORMAL) IgM (05/20/2024 9:18 AM CDT) Immunoglobulin M <25(L) 40 - 230 mg/dL Blood 05/20/2024 9:18 AM CDT 05/20/2024 10:03 AM CDT Bailee Mares T[employer] MACHINE SETTER LAB BLOOD ORDERABLES Yulia l Result Performing Organization Address City/[facility] Co de Phone Number [facility] Department [place] [address] * (ABNORMAL) IgG (05/20/2024 9:18 AM CDT) [facility] Immunoglobulin G <300(L) 700 - 1,600 mg/dL Blood 05/20/2024 9:18 AM CDT 05/20/2024 10:03 AM CDT Bailee Mares LAB BLOOD ORDERABLES Yulia l Result Performing Organization Address [facility] de Phone Number [facility] [place] [address] * Comprehensive metabolic panel (05/20/2024 9:18 AM CDT) [facility] Sodium 142 135 - 145 mmol/L Potassium, pl 4.3 3.3 - 4.9 mmol/L [facility] Chloride 106 97 - 110 mmol/L [facility] CO2 26 22 - 32 mmol/L [facility] Anion gap 10 2 - 15 mmol/L [facility] BUN 16 6 - 25 mg/dL [facility] Creatinine 0.82 0.60 - 1.10 mg/dL [facility] Glucose 152 70 - 199 mg/dL [facility] Comment: Interpretive Data Fasting glucose >/= [...] 2022. Calcium 9.3 8.5 - 10.3 mg/dL C[facility]ER B[facility] Bilirubin, total 0.3 0.1 - 1.2 mg/dL [facility] Protein, pl 6.5 6.5 - 8.5 g/dL [facility] Albumin 4.2 3.5 - 5.0 g/dL [facility] Alk phos 71 40 - 130 Units/L [facility] ALT 11 7 - 45 Units/L [facility] AST 19 10 - 45 Units/L [facility] Blood 05/20/2024 9:18 AM CDT 05/20/2024 9:28 AM CDT Bailee Mares NP LAB BLOOD ORDERABLES Yulia lobo Result [facility] [place] [address] from Last 3 Months Insurance MEDICARE [facility] MEDICARE SUPPLEMENT MEDICARE [facility]LY [facility]–1983 MEDICARE MEDICARE FORMERLY [facility], [facility]1983 MEDICARE BLUE CROSS MEDICARE SUPPLEMENT Advance Directives For more information, please contact: [phone] * Full Code (Latest Code Status on [...] 11:50 PM 01/19/2023 9:49 PM Care Teams Laboratory Asst Relationship Specialty Start Date End Date Low Alvarez MD [address] [place] [address] PCP - General Internal Medicine 10/22/19 Trae Thompson MD Surgeon Colon and Rectal Surgery 06/25/19 Onofre James MD PhD Consulting Physician Gastroenterology 06/25/19 Brown Handley MD [address] [place] [address] Wrapper Stitcher Gastroenterology 12/10/19 Juan Diego Etienne MD [address] [facility] [address] [place] [address] Referring Physician Cardiology 01/04/22
--- OUTSIDE RECORDS SUMMARY | 2024-07-28 14:31 | XMS_ITS ---
Author Organization [facility] Address [address] [place] [address] Phone Care Team Providers Care Banking Paralegal Name Role Phone Low Alvarez MD Primary Care Provider + Active Problems Patient Care Coordination No te Formatting of this note migh t be different from the original. Primary Care: Low Alvarez MD Referring Provider: No referring provider defined for this encounter. 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 Imaging performed [...] IIB [] III [] IV ER: Positive NM: Positive [id number]: Negative Surgery: [x] Yes [] No Surgery [...] 3.5mm which were intermediate grade with a Birmingham score of 6 out of 9, margins [...] diseases and does not alter medical intervention. [employer] has a variant classification program which performs [...] other tests as indicated on each visit [facility] Continue your yearly visit. *Physical exam and other tests (Pap test) as indicated on each visit. Please continue to see your primary care physician/[facility] for all general health care recommended for a female your age. Possible late and/or intermediate frame tender effects that someone with this type of [...] scheduled for 02/08/2016 at 11:00 at the [facility] 2) Follow up with Dr. [...] Received flu shot 13) [employer] at local [facility] REFERRALS [] Star [] [facility] Integrative Therapy [] [facility] Pastoral Services [employer] at the [facility] [] Other (Specify): ADDITIONAL RESOURCES Patients may have many questions and concerns after their cancer treatment ends. A list of local resources as provided below to assist you. [facility] cancer information center: [place] Cancer Society (ACS): www.acs.org National Cancer Hartford (NCI): www.cancer.gov [place] Society of clinical oncology (ASCO): www.cancer.net Komen: www.komen.org [employer]: www.[employer] Radiation therapy: www.rtanswers.org Patient signature: Eva/YVES/NAKUL signature: [...]
[2024-07-28 14:50] LABS: Basophils Percent Auto 0.5 % (0.2-1.2); Eosinophils Absolute Auto 0.1 K/mm3 (0-0.3); Eosinophils Percent Auto 3.3 % (0-4.4); Hematocrit 35.5 % (37.0-47.0); Hemoglobin 11.3 g/dL (12.0-15.0); Lymphocytes Absolute Auto 0.57 K/mm3 (0.9-3.2); Lymphocytes Percent Auto 14.4 % (18.3-44.2); Mean Corpuscular HGB Conc 31.8 g/dl (32-36); Mean Corpuscular Hemoglobin 33.7 pg (26-34); Mean Platelet Volume 10.2 fl (7.4-10.4); Monocytes Absolute Auto 0.6 K/mm3 (0.1-0.6); Monocytes Percent Auto 15.4 % (2.6-8.5); Neutrophils Absolute Auto 2.6 K/mm3 (1.3-6.7); Neutrophils Percent Auto 66.4 % (45.5-73.1); Platelet Count Result 227 k/mm3 (150-375); Red Blood Count 3.35 M/mm3 (4.2-5.4); Red Cell Distribution Width 13.3 % (11.5-14.5)
[2024-07-28 15:12] LABS: Alanine Aminotransferase 20 U/L (6-35); Albumin Level 4.2 g/dL (3.5-5.1); Alkaline Phosphatase 45 U/L (38-126); Anion Gap 6 mmol/L (4-12); Aspartate Amino Transferase 34 U/L (14-36); Bilirubin,Total 0.2 mg/dL (0.2-1.3); Blood Urea Nitrogen 11 mg/dL (7-17); Calcium 9.5 mg/dL (8.4-10.2); Carbon Dioxide 29 mmol/L (22-30); Chloride 104 mmol/L (98-107); Cholesterol 112 mg/dL (0-200); Estimated Glomerular Filt Rate > 60; Glucose 77 mg/dL (65-110); HDL Direct 43 mg/dL; Potassium 4.6 mmol/L (3.4-5.0); Sodium 139 mmol/L (137-145); Triglycerides 81 mg/dL (<150)
[2024-07-28 15:15] LABS: Macrocytosis 1+ (NORMAL); Platelet Estimate Adequate (Adequate); Schistocytes None Seen
[2024-07-28 15:23] LABS: LDL Cholesterol Direct 43 mg/dL
[2024-07-28 15:41] LABS: Thyroid Stimulating Hormone 0.516 uIU/mL (0.465-4.680)
[2024-07-28 15:43] LABS: Hemoglobin A1C 5.3 % (<5.7)
[2024-07-28 15:58] LABS: Free T4 Free Thyroxine 1.78 ng/dL (0.78-2.19); Vitamin D 25 Hydroxy 57.7 ng/mL
== END 2024-07-28 14:09 | disposition home or self-care (01) ==
LOC: ANHLAB 14:09
PROVIDERS: PCP Internal Medicine; Visit Provider Internal Medicine
DX: E03.9 Hypothyroidism, unspecified (principal); I10 Essential (primary) hypertension; E55.9 Vitamin D deficiency, unspecified; Z79.899 Other long term (current) drug therapy; Z13.1 Encounter for screening for diabetes mellitus; E78.2 Mixed hyperlipidemia
CPT/HCPCS: 36415; 36591; 80053; 80061; 82306; 83036; 84439; 84443; 85025

== ENCOUNTER 2025-01-07 12:07 | Outpatient (CLI) | payer MEDICARE, SELFPAY ==
--- OUTSIDE RECORDS SUMMARY | 2023-10-18 05:20 | XMS_ITS ---
[facility] Address [address] [place] [id number] Care Team Providers Care Frame Stripper And Crusher Name Role Phone Low Alvarez Unavailable Unavailable LYNN LUIS Unavailable [phone] REASON FOR VISIT *General care Encounters Encounter Location Date Provider Diagnosis [facility] [place] [address] [address] [id number] 10/18/2023 LYNN LUIS Plan Of Treatment No Information Progress Notes * NUBIA MENARDB:1940 (84 yo F)Acc No.[id number]:10/18/2023 Patient: EMELY NEWMANLLA Provider: Jalyn Luis DPM :1940 A ge:83 Y S ex:Female Date:10/18/2023 Address:[address] [place] [address], [id number] Subjective: * Chief Complaints: * * General care Billing Information: * Procedure Codes: * Electronic signature of LYNN LUIS DPM on 01/07/2025 at 01:25 PM IT ANALYST Sign off status: Pending * Provider: Jalyn Luis DPM Date: 0 10/18/2023 Generated for Printi ng/Faxing/eTransmitting on: 1 03/09/2024 01:25 PM IT ANALYST
--- OUTSIDE RECORDS SUMMARY | 2025-01-06 13:00 | XMS_ITS | Encounter Summary ---
Author Organization [facility] Healthcare Address [address] [place] [address] Care Team Providers Care Sap Bw Architect Name Role Phone Trae Thompson MD Unavailable [phone] Onofre James MD PhD Unavailable [phone] Low Alvarez MD Primary Care Provider [phone] Brown Handley MD Unavailable Juan Diego Etienne MD Unavailable [phone] Suman Canales MD Unavailable Reason for Visit * Episode Based Medications (Routine) - Authorized Specialty Diagnoses / Procedures Referred By Contac t Referred To Contact Diagnoses Multiple myeloma not having achieved remission (HCC) Suman Canales MD [address] DIV IM BONE MARROW TRANSPLANT[address] [place] [address] Phone: tel: fax: [facility] - Infusion [address] [facility] [address] [place] [address] Referral ID Status Reason Start Date Expiration Date V isits Requested Visits Authorized [id number] Authorized 01/06/2025 03/12/2025 1 20 Encounter Details Date Type Department Care Team (Late st Contact Info) Description 01/06/2025 1:00 PM BUILDING CUSTODIAN Lab [facility] - Lab Collection [address] [facility] [address] [place] [address] Multiple myeloma not having achieved remission (HCC); Multiple myeloma, remission status unspecified (HCC) Social History Tobacco Use Types Packs/Day Years Used Date Smoking Tobacco: Never Smokeless Tobacco: Never Alcohol Use Standard Drinks/Week Comments Yes 0 (1 standard drink = 0.6 oz pur e alcohol) occ glass of wine [facility] Utilities Answer Date Recorded In the past 12 months has e electric, gas, oil, or water company threatened to shut off services in your home? No 03/02/2023 Social Connection and Isolation Panel Answer Date Recorded In a typical week, how many times do you talk on the phone with family, friends, or neighbors? More than three times a week 03/02/2023 How often do you get togethe r with friends or relatives? More than three times a week 03/02/2023 How often do you attend chur ch or mandaeism services? Never 03/02/2023 Do you belong to any clubs o r organizations such as hoahaoism groups, unions, fraternal or athletic groups, or [...] place to sleep or slept in a senior living (including now)? No 03/02/2023 Personal Safety Answer Date Recorded Have you ever been in or are you currently in a harmful physical or emotional relationship or is someone making you feel afraid or unsafe? Denies 06/13/2024 Comments No Sex and Gender Information Value Date Recorded Sex Assigned at Not on file Legal Sex Female 10:03 AM BUILDING CUSTODIAN Gender Identity Female 11/27/2023 9:47 AM CDT Sexual Orientation Not on file documented as of this encounter Functional Status documented as of this encounter Plan of Treatment Not on file documented as of this encounter Procedures Procedure Name Priority Date/Time Associated Diagnosis Comments EGFR Routine 01/06/2025 1:18 PM BUILDING CUSTODIAN Multiple myeloma not having achieved remission (HCC) DIFFERENTIAL AUTO Routine 01/06/2025 1:1 8 PM BUILDING CUSTODIAN Multiple myeloma not having achieved remission (HCC) CBC WITH AUTO DIFFERENTIAL Routine 01/06/2025 1:18 PM BUILDING CUSTODIAN Multiple myeloma not having achieved remission (HCC) PHOSPHORUS Routine 01/06/2025 1:18 PM BUILDING CUSTODIAN Multiple myeloma, remission status unspecified (HCC) COMPREHENSIVE METABOLIC PANEL Routine 01/06/2025 1:18 PM BUILDING CUSTODIAN Multiple myeloma not having achieved remission (HCC) documented in this encounter Results * eGFR (01/06/2025 1:18 PM BUILDING CUSTODIAN) [facility] eGFR 61 >=60 mL/min/1. 73 m2 Comment: Interpretive Data [...] interpretive data was last reviewed 2020. Blood 01/06/2025 1:18 PM BUILDING CUSTODIAN 01/06/2025 1:44 PM BUILDING CUSTODIAN Suman Canales MD LAB BLOOD ORDER CRISTEL Final Result [facility] [place] [address] * (ABNORMAL) Differential, auto (01/06/2025 1:18 PM BUILDING CUSTODIAN) [facility] Neutrophil abs 5.05 1.50 - 6.50 K/cumm Comment:Testing performed by : [facility], [address] [place] [phone] Lymphocyte abs 0.47(L) 0.80 - 3.30 K/cumm TA KENDRICK Comment:Testing performed by : [facility], [address] [place] [phone] Monocyte abs 0.78 0.20 - 0.80 K/cumm TA [facility]DRICK Comment:Testing performed by : [facility], [address] [place] [phone] Eosinophil abs 0.11 0.00 - 0.50 K/cumm [facility] Comment:Testing performed by : [facility], [address] [place] [phone] Basophil abs 0.02 0.00 - 0.10 K/cumm [facility] Comment:Testing performed by : [facility], [address] [place] [phone] Neutrophil pct 78.7 % [facility] Comment: Interpretive Data Percent cell count reference ranges are not reported, since discordance with absolute values may lead to misinterpretation of CBC data. Current Interpretive Data was last revised on 2017. Testing performed by: [facility], [address] [place], [place] [phone] Lymphocyte pct 7.2 % [facility] Comment: Interpretive Data Percent cell count reference ranges are not reported, since discordance with absolute values may lead to misinterpretation of CBC data. Current Interpretive Data was last revised on 2017. Testing performed by: [facility], [address] [place] [phone] Monocyte pct 12.1 % [facility] Comment: Interpretive Data Percent cell count reference ranges are not reported, since discordance with absolute values may lead to misinterpretation of CBC data. Current Interpretive Data was last revised on 2017. Testing performed by: [facility], [address] [place] [phone] Eosinophil pct 1.8 % C[facility]ER BJ Comment: Interpretive Data Percent cell count reference ranges are not reported, since discordance with absolute values may lead to misinterpretation of CBC data. Current Interpretive Data was last revised on 2017. Testing performed by: [facility], [address] [place] [phone] Basophil pct 0.3 % [facility] Comment: Interpretive Data Percent cell count reference ranges are not reported, since discordance with absolute values may lead to misinterpretation of CBC data. Current Interpretive Data was last revised on 2017. Testing performed by: [facility], [address] [place] [address] Blood 01/06/2025 1:18 PM BUILDING CUSTODIAN 01/06/2025 1:41 PM BUILDING CUSTODIAN Suman Canales MD LAB BLOOD ORDER CRISTEL Final Result [facility] [place] [address] * (ABNORMAL) CBC with auto differential (01/06/2025 1:18 PM BUILDING CUSTODIAN) WBC 6.43 3.80 - 9.90 K/cumm Comment:Testing performed by : [facility], [address] [place] [address] Hgb 11.4(L) 11.9 - 15.5 g/dL CERENEDINA KENDRICK Comment:Testing performed by : [facility], [address] [place] [address] Hct 33.8(L) 35.6 - 45.5 % CERENEDINA KENDRICK Comment:Testing performed by : [facility], [address] [place] [address] Plt 210 150 - 400 K/cumm TA KENDRICK Comment:Testing performed by : [facility], [address] [place] [address] MPV 9.1 6.8 - 10.4 fL CERENEDINA BJ Comment:Testing performed by : [facility], [address] [place] [address] RBC 3.31(L) 3.90 - 5.20 M/cumm CERENEDINA BJ Comment:Testing performed by : [facility], [address] [place] [address] MCV 102.0(H) 81.3 - 96.4 fL CERENEDINA BJ Comment:Testing performed by : [facility], [address] [place] [address] MCH 34.4(H) 27.1 - 33.3 pg CERENEDINA [facility] Comment:Testing performed by : [facility], [address] [place] [phone] MCHC 33.7 32.3 - 35.7 g/dL [facility] Comment:Testing performed by : [facility], [address] [place] [phone] RDW CV 14.7 11.1 - 14.9 % [facility] Comment:Testing performed by : [facility], [address] [place] [phone] NRBC abs 0.00 0.00 - 0.01 K/cumm TA [facility] Comment:Testing performed by : [facility], [address] [place] [phone] Blood 01/06/2025 1:18 PM BUILDING CUSTODIAN 01/06/2025 1:41 PM BUILDING CUSTODIAN Suman Canales MD LAB BLOOD ORDER CRISTEL Final Result [facility] [place] [address] * Comprehensive metabolic panel (01/06/2025 1:18 PM BUILDING CUSTODIAN) Sodium 141 135 - 145 mmol/L Potassium, pl 4.6 3.3 - 4.9 mmol/L [facility] Chloride 104 97 - 110 mmol/L [facility] CO2 28 22 - 32 mmol/L [facility] Anion gap 9 2 - 15 mmol/L [facility] BUN 17 6 - 25 mg/dL [facility] Creatinine 0.93 0.60 - 1.10 mg/dL [facility] Glucose 138 70 - 199 mg/dL [facility] Comment: Interpretive Data Fasting glucose >/= [...] 2022. Calcium 9.6 8.5 - 10.3 mg/dL CERNER [facility] Bilirubin, total 0.3 0.1 - 1.2 mg/dL CERNER [facility] Protein, pl 6.6 6.5 - 8.5 g/dL CERNER B[facility] Albumin 4.2 3.5 - 5.0 g/dL CERNER [facility] Alk phos 52 40 - 130 Units/L CERNER BJ ALT 13 7 - 45 Units/L CERNER BJ AST 25 10 - 45 Units/L CERNER [facility] Blood 01/06/2025 1:18 PM BUILDING CUSTODIAN 01/06/2025 1:44 PM BUILDING CUSTODIAN Suman Canales MD LAB BLOOD ORDER CRISTEL Final Result Performing Organization Address City/[facility]/ZIP Co de Phone Number [facility] [place] [address] * Phosphorus (01/06/2025 1:18 PM BUILDING CUSTODIAN) Pathologist [facility] Phosphorus, pl 3.0 2.3 - 4.5 mg/dL Blood 01/06/2025 1:18 PM BUILDING CUSTODIAN 01/06/2025 1:44 PM BUILDING CUSTODIAN Suman Canales MD LAB BLOOD ORDER CRISTEL Final Result [facility] [place] [address] documented in this encounter Visit Diagnoses Diagnosis Multiple myeloma, remission status unspecified (HCC) documented in this encounter Orders Appointment Requests Count Last Ordered Date Fi rst Ordered Date ONCBCN LAB APPOINTMENT 1 01/06/2025 documented in this encounter Care Teams Sap Bw Architect Relationship Specialty Start Date End Date Low Alvarez MD PCP - General Internal Medicine 10/22/19 Trae Thompson MD Surgeon Colon and Rectal Surgery 06/25/19 Onofre James MD PhD Consulting Physician Gastroenterology 06/25/19 Brown Handley MD Tower Technician Gastroenterology 12/10/19 Juan Diego Etienne MD Referring Physician Cardiology 01/04/22 Suman Lackey MD [address] [facility] [address] IM BONE MARROW TRANSPLANT[address] [place] [address] Medical Oncologist/Birdcage Assembler Hematology and Oncology 12/19/24 documented as of this encounter
--- OUTSIDE RECORDS SUMMARY | 2025-01-06 14:00 | XMS_ITS | Encounter Summary ---
Author Organization [facility] Healthcare Address [address] [place] [address] Care Team Providers Care Potato Pancake Frier Name Role Phone Trae Thompson MD Unavailable Onofre James MD PhD Unavailable [phone] Low Alvarez MD Primary Care Provider [phone] Brown Handley MD Unavailable Juan Diego Etienne MD Unavailable [phone] Suman Canales MD Unavailable Reason for Visit * Reason Comments OP Infusion * Episode Based Medications (Routine) - Authorized Specialty Diagnoses / Procedures Referred By Contac t Referred To Contact Diagnoses Multiple myeloma not having achieved remission (HCC) Suman Canales MD [address] DIV IM BONE MARROW TRANSPLANT, [address] [place] [address] Phone: tel: fax: [facility] - [facility]fusion [address] [facility] [address] [place] [address] Referral ID Status Reason Start Date Expiration Date V isits Requested Visits Authorized [id number] Authorized 01/06/2025 03/12/2025 1 20 Encounter Details Date Type Department Care Team (Late st Contact Info) Description 01/06/2025 2:00 PM BATON TEACHER Infusion [facility] - Infusion [address] [facility] Floor [address] [place] [address] Multiple myeloma, remission status unspecified (HCC) (Primary Dx); Multiple myeloma not having achieved remission (HCC) Social History Tobacco Use Types Packs/Day Years Used Date Smoking Tobacco: Never Smokeless Tobacco: Never Alcohol Use Standard Drinks/Week Comments Yes 0 (1 standard drink = 0.6 oz pur e alcohol) occ glass of wine [facility] Utilities Answer Date Recorded In the [...] any clubs o r organizations such as restoration groups, unions, fraternal or athletic groups, or [...] place to sleep or slept in a longterm (including now)? No 03/02/2023 Personal Safety Answer Date Recorded Have you ever been in or are you currently in a harmful physical or emotional relationship or is someone making you feel afraid or unsafe? Denies 06/13/2024 Comments No Sex and Gender Information Value Date Recorded Sex Assigned at Not on file Legal Sex Female 10:03 AM BATON TEACHER Gender Identity Female 11/27/2023 9:47 AM CDT Sexual Orientation Not on file documented as of this encounter Last Filed Vital Signs Vital Sign Reading Time Taken Comments Blood Pressure 104/69 01/06/2025 1:50 PM BATON TEACHER Pulse 79 01/06/2025 1:50 PM BATON TEACHER Temperature 36.4 C (97.6 F) 01/06/2025 1:50 PM BATON TEACHER Respiratory Rate 20 01/06/2025 1:50 PM BATON TEACHER Oxygen Saturation 98% 01/06/2025 1:50 PM BATON TEACHER Inhaled Oxygen Concentration - - Weight 60.6 kg (133 lb 9.6 oz) 01/06/2025 1:50 P M BATON TEACHER Height 147.2 cm (4' 9.95) 01/06/2025 1:50 PM CS T Body Mass Index 27.97 01/06/2025 1:50 PM BATON TEACHER documented in this encounter Functional Status documented as of this encounter Nursing Notes * Samantha Sandoval RN - 01/06/2025 2:00 PM CST Oncology Nursing Note [facility] - INFUSION Di Woods is a 84 y.o. female who presents for treatment cycle 1, day 1 of CyBorD and cycle 23of XGEVA. Pre-treatment Nursing Assessment Nursing Assessment LOC: Alert, Awake Constitutional: Fatigue Fatigue: Constant Any falls since your last visit?: Yes (patient fell yesterday, team aware) Orientation: Oriented x4 Behavior: Calm Speech: Clear Language: No aphasia Hearing: At Baseline Vision: At baseline Peripheral Neuropathy: Yes Oral Mucosa Grade: Normal (0) Pt states has potential to be ?: N/A Shortness of Breath?: No Lungs auscultated PRN: No Pt is on oxygen?: No Appetite: Good Have You Recently Lost Weight Without Trying?: No Have you been eating poorly because of a decreased appetite?: No Malnutrition Screening Tool (MST) Score: 0 Nausea/Vomiting: No Abdomen: Soft Diarrhea: No Constipation: No Skin Condition/Temp: Dry, Warm Rash Location: denies Swelling: No Additional Notes: Encounter Vitals BP: 104/69 (01/06/2025 1:50 PM) Pulse: 79 (01/06/2025 1:50 PM) Resp: 20 (01/06/2025 1:50 PM) Temp: 36.4 ??C (97.6 ??F) (01/06/2025 1:50 PM) Temp src: Temporal (01/06/2025 1:50 PM) SpO2: 98 % (01/06/2025 1:50 PM) Weight: 60.6 kg (133 lb 9.6 oz) (01/06/2025 1:50 PM) Height: 147.2 cm (4' 9.95) (01/06/2025 1:50 PM) Pain Score: 3 Treatment Patient: met treatment parameters Pre blood return: Kietisk Di Woods tolerated treatment well. Patient was frequently observed and monitored throughout the administration of their treatment. Additional Notes: Post blood return: Brisk IV access post infusion: NS Patient Education Treatment Education: Information/teaching given to patient including fall prevention, symptom management, and process and procedure related to today's visit Response: Verbalizes understanding Discharge Plan Discharge instructions given to patient. Future appointments given and reviewed with treatment plan. Discharge Mode: Ambulatory Accompanied by: Family Discharged To: Home N TEACHER documented in this encounter Plan of Treatment Scheduled Orders Name Type Priority Associated Diagnoses Orde r Schedule Comprehensive metabolic panel Lab Routine Multiple myeloma, remission status unspecified (HCC) Expected: 01/06/2025, Expires: 01/06/2026 CBC with auto differential Lab Routine Multiple myeloma not having achieved remission (HCC) Expected: 01/13/2025, Expires: 01/13/2026 Comprehensive metabolic panel Lab Routine Multiple myeloma not having achieved remission (HCC) Expected: 01/13/2025, Expires: 01/13/2026 CBC with auto differential Lab Routine Multiple myeloma not having achieved remission (HCC) Expected: 01/20/2025, Expires: 01/20/2026 Comprehensive metabolic panel Lab Routine Multiple myeloma not having achieved remission (HCC) Expected: 01/20/2025, Expires: 01/20/2026 CBC with auto differential Lab Routine Multiple myeloma not having achieved remission (HCC) Expected: 01/27/2025, Expires: 01/27/2026 Comprehensive metabolic panel Lab Routine Multiple myeloma not having achieved remission (HCC) Expected: 01/27/2025, Expires: 01/27/2026 documented as of this encounter Visit Diagnoses Diagnosis Multiple myeloma, remission status unspecified (HCC)- Primary documented in this encounter Administered Medications Inactive Administered Medications - up to 3 most recent administrations Medication Order MAR Action Action Date Dose Rate Site bortezomib (VELCADE) subcutaneous syringe 2.05 mg 2.05 mg (rounded from 2.041 mg = 1.3 mg/m2 1.57 m2 Treatment Plan BSA from Recorded weight), subcutaneous, Once, On Sun01/06/25 at 1445, For 1 dose, For subcutaneous use only. Irritant. Ensure at least 72 hours have passed since last bortezomib dose.Indications:Multip le myeloma not having achieved remission (HCC) Given 01/06/2025 2:52 PM BATON TEACHER 2.05 mg Left Lower Abdomen cycloPHOSphamide (J9073) 480 mg in sodium chloride 0.9% 100 mL IVPB 480 mg (rounded from 471 mg = 300 mg/m2 1.57 m2 Treatment Plan BSA from Recorded weight), intravenous, at 225 mL/hr, Administer over 30 Minutes, Once, On Sun01/06/25 at 1515, For 1 dose, IrritantIndications:M ultiple myeloma not having achieved remission (HCC) New Bag 01/06/2025 2:56 PM BATON TEACHER 480 mg 225 mL/hr denosumab (XGEVA) subcutaneous syringe 120 mg 120 mg, subcutaneous, Once, On Sun01/06/25 at 1445, For 1 dose, Administer injection in upper arm, abdomen or upper thigh Refrigerate. Allow to stand 15 to 30 mins prior to useIndications:Multiple myeloma, remission status unspecified (HCC) Given 01/06/2025 2:56 PM BATON TEACHER 120 mg Right Lower Abdomen dexAMETHasone (DECADRON) tablet 20 mg 20 mg, oral, Once, On Sun01/06/25 at 1445, For 1 doseIndications:Multipl e myeloma not having achieved remission (HCC) Given 01/06/2025 2:15 PM BATON TEACHER 20 mg palonosetron (ALOXI) injection 0.25 mg 0.25 mg, intravenous, Once, On Sun01/06/25 at 1445, For 1 dose, For IV push, administer over 30 seconds.Indications:Mul tiple myeloma not having achieved remission (HCC) Given 01/06/2025 2:15 PM BATON TEACHER 0.25 mg documented in this encounter Orders Medications Ordered That Mateusz ht Not Have Been Administered Count Last Ordered Date First Ordered Date Carrier Fluids for Secondary Infusion - 0.9% Sodium Chloride 1 01/06/2025 Nursing Count Last Ordered Date First Orde red Date ONCBCN CLINICAL PHARMACIST REVIEW 1 025 ONCBCN NURSING COMMUNICATION 2 1 01/06/2025 ONCBCN PROVIDER COMMUNICATION 1 1 ONCBCN PROVIDER COMMUNICATION 14 1 01/07/20 ONCBCN PROVIDER COMMUNICATION 17 1 01/07/20 ONCBCN TREATMENT PARAMETERS 4 1 01/06/2025 ONCBCN TREATMENT PARAMETERS 9 1 01/06/2025 Appointment Requests Count Last Ordered Date Fi rst Ordered Date ONCBCN INJECTION APPOINTMENT REQUEST 1 12/27 ONCBCN RETURN CHEMO 2HRS 1 01/06/2025 documented in this encounter Care Teams Potato Pancake Frier Relationship Specialty Start Date End Date Low Alvarez MD PCP - General Internal Medicine 10/22/19 Trae Thompson MD Surgeon Colon and Rectal Surgery 06/25/19 Onofre James MD PhD Consulting Physician Gastroenterology 06/25/19 Brown Handley MD Global Logistics Analyst Gastroenterology 12/10/19 Juan Diego Etienne MD Referring Physician Cardiology 01/04/22 Suman Lackey MD [address] [facility] [address] DIV IM BONE MARROW TRANSPLANT, [address]TH[address] [place] [address] Medical Oncologist/Scuba Diver Hematology and Oncology 12/19/24 documented as of this encounter
--- OUTSIDE RECORDS SUMMARY | 2025-01-06 15:30 | XMS_ITS | Encounter Summary ---
Author Organization [facility] Healthcare Address [address] [place] [address] Care Team Providers Care Pest Control Worker Helper Name Role Phone Trae Thompson MD Unavailable [phone] Onofre James MD PhD Unavailable [phone] Low Alvarez MD Primary Care Provider [phone] Brown Handley MD Unavailable Juan Diego Etienne MD Unavailable [phone] Suman Canales MD Unavailable Reason for Visit * Episode Based Medications (Routine) - Authorized Specialty Diagnoses / Procedures Referred By Contac t Referred To Contact Oncology Diagnoses Multiple myeloma, remission status unspecified (HCC) Suman Canales MD [address] DIV IM BONE MARROW TRANSPLANT, [address] [place] [address] Phone: tel: fax: [facility] - Infusion [address] [facility] Floor [address] [place] [address] Referral ID Status Reason Start Date Expiration Date V isits Requested Visits Authorized [id number] Authorized 08/17/2023 03/13/2025 1 20 Encounter Details Date Type Department Care Team (Late st Contact Info) Description 01/06/2025 3:30 PM GRAPHIC DESIGNER Infusion [facility] - Infusion [address] [facility] Floor [address] [place] [address] Multiple myeloma, remission status unspecified (HCC) Social History Tobacco Use Types Packs/Day Years Used Date Smoking Tobacco: Never Smokeless Tobacco: Never Alcohol Use Standard Drinks/Week Comments Yes 0 (1 standard drink = 0.6 oz pur e alcohol) occ glass of wine [facility] Utilities Answer Date Recorded In the past 12 months has th e electric, gas, oil, or water company [...] often do you attend chur ch or sikh services? Never 03/02/2023 Do you belong to any clubs o r organizations such as yarsani groups, unions, fraternal or athletic groups, or [...] on file Legal Sex Female 10:03 AM GRAPHIC DESIGNER Gender Identity Female 11/27/2023 9:47 AM CDT Sexual Orientation Not on file documented as of this encounter Functional Status documented as of this encounter Nursing Notes * Samantha Sandoval RN - 01/06/2025 3:30 PM CST See other encounter. HIC DESIGNER documented in this encounter Plan of Treatment Not on file documented as of this encounter Visit Diagnoses Diagnosis Multiple myeloma, remission status unspecified (HCC) documented in this encounter Orders Appointment Requests Count Last Ordered Date Fi rst Ordered Date ONCBCN INJECTION APPOINTMENT REQUEST 1 12/27 documented in this encounter Care Teams Pest Control Worker Helper Relationship Specialty Start Date End Date Low Alvarez MD PCP - General Internal Medicine 10/22/19 Trae Thompson MD Surgeon Colon and Rectal Surgery 06/25/19 Onofre James MD PhD Consulting Physician Gastroenterology 06/25/19 Brown Handley MD Bisque Finisher Gastroenterology 12/10/19 Juan Diego Etienne MD Referring Physician Cardiology 01/04/22 Suman Lackey MD [address] [place] [address] 8 DIV IM BONE MARROW TRANSPLANT, , [address] [place] [address] Medical Oncologist/Crop And Soil Technician Hematology and Oncology 12/19/24 documented as of this encounter
[2025-01-07 12:39] LABS: Hematocrit 32.8 % (37.0-47.0); Hemoglobin 10.7 g/dL (12.0-15.0); Immature Granulocyte Percent A 0.4 % (0-0.5); Lymphocytes Absolute Auto 0.36 K/mm3 (0.9-3.2); Mean Corpuscular HGB Conc 32.6 g/dl (32-36); Mean Corpuscular Hemoglobin 34.1 pg (26-34); Mean Corpuscular Volume 104.5 fl (80-100); Nucleated Red Blood Cells Absolute Auto 0.000 K/mm3 (0.0-0.012); Nucleated Red Blood Cells Perc 0.0 % (0.0-0.2); Platelet Count Result 214 k/mm3 (150-375); Red Blood Count 3.14 M/mm3 (4.2-5.4); White Blood Count 15.2 K/mm3 (4.5-10.0)
--- OUTSIDE RECORDS SUMMARY | 2025-01-07 13:25 | XMS_ITS | Encounter Summary ---
Author Organization [facility] Healthcare Address [address] [place] [address] Care Team Providers Care Product Safety Engineer Name Role Phone Trae Thompson MD Unavailable [phone] Onofre James MD PhD Unavailable [phone] Low Alvarez MD Primary Care Provider [phone] Brown Handley MD Unavailable [phone] Juan Diego Etienne MD Unavailable [phone] Suman Canales MD Unavailable Encounter Details Date Type Department Care Team (Late st Contact Info) Description 10/29/2019 Telephone [facility] [address] [place] [address] Hanna Alves, RT Social History Tobacco Use [...] on file Legal Sex Female 10:03 AM MARINE STRUCTURAL DESIGNER Gender Identity Female 11/27/2023 9:47 AM CDT Sexual Orientation Not on file documented as of this encounter Functional Status documented as of this encounter Plan of Treatment Not on file documented as of this encounter Visit Diagnoses Not on filedocumented in this encounter Additional Health Concerns Infection Onset Date Last Indicated Resolved Time COVID: Suspected 04/10/2022 04/10/2022 04/10/2022 11:18 PM MARINE STRUCTURAL DESIGNER COVID: Suspected 05/28/2022 05/28/2022 05/28/2022 8:39 AM CDT COVID: Suspected 12/16/2022 12/16/2022 12/16/2022 6:32 PM CDT COVID: Suspected 01/03/2023 01/03/2023 01/03/2023 3:18 PM MARINE STRUCTURAL DESIGNER COVID19 01/03/2023 01/03/2023 01/13/2023 3:05 AM MARINE STRUCTURAL DESIGNER COVID: Recovered Comment:01/14/2023 IP Review: MD team believes patient has not cleared original infection. Fabby Rodrigues RN Added based on recent COVID infection. 01/13/2023 01/13/2023 01/14/2023 9:[address] COVID: Suspected 01/13/2023 01/14/2023 01/14/2023 3:12 AM MARINE STRUCTURAL DESIGNER COVID19 01/14/2023 01/14/2023 01/29/2023 3:06 AM MARINE STRUCTURAL DESIGNER COVID: Recovered Comment:Added based on recent COVID infection. 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 02/26/2023 08/25/2023 3:05 AM CDT COVID: Suspected 07/25/2023 07/25/2023 07/25/2023 6:35 PM CDT COVID: Suspected 06/13/2024 06/13/2024 06/13/2024 9:45 PM CDT Rhino/Enterovirus 06/13/2024 06/13/2024 06/20/2024 3:06 AM CDT documented as of this encounter Care Teams Product Safety Engineer Relationship Specialty Start Date End Date Low Alvarez MD PCP - General Internal Medicine 10/22/19 Trae Thompson MD Surgeon Colon and Rectal Surgery 06/25/19 Onofre James MD PhD Consulting Physician Gastroenterology 06/25/19 Brown Handley MD System Administration Manager Gastroenterology 12/10/19 Juan Diego Etienne MD Referring Physician Cardiology 01/04/22 Suman Lackey MD [address] [facility] [address] DIV IM BONE MARROW TRANSPLANT, , [address] [place] [address] Medical Oncologist/Engineer Third Assistant Hematology and Oncology 12/19/24 documented as of this encounter
--- OUTSIDE RECORDS SUMMARY | 2025-01-07 13:25 | XMS_ITS | Encounter Summary ---
Author Organization [facility] Address [address] [place] [address] Phone Care Team Providers Care Mill Labor Supervisor Name Role Phone Trae Thompson MD Unavailable [phone] Onofre James MD PhD Unavailable [phone] Low Alvarez MD Primary Care Provider [phone] Brown Handley MD Unavailable [phone] Juan Diego Etienne MD Unavailable [phone] Suman Canales MD Unavailable Encounter Details Date Type Department Care Team (Late st Contact Info) Description 05/18/2023 Telephone [facility] Oncology [facility] Advanced Medicine 7th [place] [address] [place] [address] Quiana Coles Social History Tobacco Use Types Packs/Day Years Used Date Smoking Tobacco: Never Smokeless Tobacco: Never Alcohol Use Standard Drinks/Week Comments Yes 0 (1 standard drink = 0.6 oz pur e alcohol) occ glass of wine [facility] Utilities Answer Date Recorded In the past [...] often do you attend chur ch or mosque services? Never 03/02/2023 Do you belong to any clubs o r organizations such as hinduism groups, unions, fraternal or athletic groups, or [...] place to sleep or slept in a alf (including now)? No 03/02/2023 Personal Safety Answer Date Recorded Have you ever been in or are you currently in a harmful physical or emotional relationship or is someone making you feel afraid or unsafe? Denies 04/11/2023 Comments No Sex and Gender Information Value Date Recorded Sex Assigned at Not on file Legal Sex Female 10:03 AM EMERGENCY CARE ATTENDANT Gender Identity Female 11/27/2023 9:47 AM CDT [...] documented as of this encounter Care Teams Mill Labor Supervisor Relationship Specialty Start Date End Date Low Alvarez MD PCP - General Internal Medicine 10/22/19 Trae Thompson MD Surgeon Colon and Rectal Surgery 06/25/19 Onofre James MD PhD Consulting Physician Gastroenterology 06/25/19 Brown Handley MD Registered Nurse First Assistant Gastroenterology 12/10/19 Juan Diego Etienne MD Referring Physician Cardiology 01/04/22 Suman Lackey MD [address] [facility] 8 DIV IM BONE MARROW TRANSPLANT, , [place] [address] Medical Oncologist/Boat Outboard Engine Mechanic Hematology and Oncology 12/19/24 documented as of this encounter
--- OUTSIDE RECORDS SUMMARY | 2025-01-07 13:25 | XMS_ITS | Patient Health Record ---
Author Organization [facility] Address [address] [place], [place] [address] Care Team Providers Care Service Station Manager Name Role Phone Low Alvarez Unavailable Unavailable Reason For Referral No Information Social History Tobacco Use: Social History Observation Description Date Details (start date - stop date) Never Smoker NA - NA Social History Tobacco Use: Social Info Question Answer Notes Tobacco Control (Standard) Tobacco use: Nonsmoker Plan Of Treatment No Information Insurance Providers Payer Name Payer Address Payer Phone Subscriber Number Group Number Insured Name Patient Relationship to Insured Coverage Start Date Coverage End Date Medicare Part B [place] [address] [place] [address] [id number] TASNEEM MENARD Self - patient is the insured [facility] ([facility] ATTN CLAIMS [address] [place] [address] [id number] TASNEEM MENARD Self - patient is the insured Medical (General) History Medical History History ICD Code acid reflux artificial joint Blood transfusion fibromyalgia neuropathy Pneumonia anemia Cancer (type of cancer) Arthritis skin cancer Sleep apnea Heart Disease hypertension
--- OUTSIDE RECORDS SUMMARY | 2025-01-07 13:25 | XMS_ITS | Encounter Summary ---
Author Organization [facility] Healthcare Address [address] [place] [address] Care Team Providers Care Morning News Anchor Name Role Phone Low Alvarez MD Primary Care Provider [phone] Trae Thompson MD Unavailable [phone] Onofre James MD PhD Unavailable Low Alvarez MD Primary Care Provider Brown Handley MD Unavailable Juan Diego Etienne MD Unavailable [phone] Suman Canales MD Unavailable Encounter Details Date Type Department Care Team (Late st Contact Info) Description 09/10/2019 Telephone [facility] [place], [place] [id number] Aileen Johnston MD [address] [facility] [address]6B[address] [place] [address] Social History Tobacco Use Types Packs/Day Years Used Date Smoking Tobacco: Never Comments No Sex and Gender Information Value Date Recorded Sex Assigned at Not on file Legal Sex Female 10:03 AM CLINICAL RESEARCH NURSE COORDINATOR Gender Identity Female 11/27/2023 9:47 AM CDT Sexual Orientation Not on file documented as of this encounter Plan of Treatment Not on file documented as of this encounter Visit Diagnoses Not on filedocumented in this encounter Additional Health Concerns Infection Onset Date Last Indicated Resolved Time COVID: Suspected 04/10/2022 04/10/2022 04/10/2022 11:18 PM CLINICAL RESEARCH NURSE COORDINATOR COVID: Suspected 05/28/2022 05/28/2022 05/28/2022 8:39 AM CDT COVID: Suspected 12/16/2022 12/16/2022 12/16/2022 6:32 PM CDT COVID: Suspected 01/03/2023 01/03/2023 01/03/2023 3:18 PM CLINICAL RESEARCH NURSE COORDINATOR COVID19 01/03/2023 01/03/2023 01/13/2023 3:05 AM CLINICAL RESEARCH NURSE COORDINATOR COVID: Recovered Comment:01/14/2023 IP Review: MD team believes patient has not cleared original infection. Fabby Rodrigues RN Added based on recent COVID infection. 01/13/2023 01/13/2023 01/14/2023 9:[address] COVID: Suspected 01/13/2023 01/14/2023 01/14/2023 3:12 AM CLINICAL RESEARCH NURSE COORDINATOR COVID19 01/14/2023 01/14/2023 01/29/2023 3:06 AM CLINICAL RESEARCH NURSE COORDINATOR COVID: Recovered Comment:Added based on recent COVID infection. 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 02/26/2023 08/25/2023 3:05 AM CDT COVID: Suspected 07/25/2023 07/25/2023 07/25/2023 6:35 PM CDT COVID: Suspected 06/13/2024 06/13/2024 06/13/2024 9:45 PM CDT Rhino/Enterovirus 06/13/2024 06/13/2024 06/20/2024 3:06 AM CDT documented as of this encounter Care Teams Morning News Anchor Relationship Specialty Start Date End Date Low Alvarez MD PCP - General Internal Medicine 08/30/17 10/21/19 Low Alvarez MD PCP - General Internal Medicine 10/22/19 Trae Thompson MD Surgeon Colon and Rectal Surgery 06/25/19 Onofre James MD PhD Consulting Physician Gastroenterology 06/25/19 Brown Handley MD Digester Hand Gastroenterology 12/10/19 Juan Diego Etienne MD Referring Physician Cardiology 01/04/22 Suman Lackey MD [address] [facility] 8 DIV IM BONE MARROW TRANSPLANT, 5TH, [address] [place] [address] Medical Oncologist/Hospital Personnel Director Hematology and Oncology 12/19/24 documented as of this encounter
--- OUTSIDE RECORDS SUMMARY | 2025-01-07 13:25 | XMS_ITS | Clinical Summary ---
Author Organization [facility] Address [facility] [place] [address] Care Team Providers Care Clinic Assistant Name Role Phone Low Alvarez MD Primary Care Provider [phone] Allergies Active Allergy Reactions Criticality Noted Date [...] Health Maintenance Due Date Last Done Comments COVID-19 Vaccine (#1) 1945 DTaP, Tdap and Td Vaccines (1 - Tdap) 1960 Zoster Vaccines (1 of 2) 08/28/1991 Annual Medicare Wellness Visit 2006 Dexa Scan (General) 2006 RSV Immunization or 60+ Years (1 - 1-dose 75+ series) 2016 Pneumococcal Vaccine: 50+ Years (2 of 2 - PCV20 or PCV21) 01/24/2019 01/24/2018, 02/26/2015 Influenza Adult (#1) 2024 12/16/2018, 01/24/2018, 01/16/2017, Additional history exists Hepatitis A Vaccines Aged Out No long er eligible based on patient's age to complete this topic Meningococcal B Vaccine Aged Out No l onger eligible based on patient's age to complete this topic Meningococcal Vaccine Aged Out No nasir arturo eligible based on patient's age to complete this topic RSV Immunizations Under 20 Months Aged Out No longer eligible based on patient's age to complete this topic Insurance MEDICARE [facility] Care Teams Clinic Assistant Relationship Specialty Start Date End Date Low Alvarez MD [address] [address] PCP - General INTERNAL MEDICINE 11/06/19
--- OUTSIDE RECORDS SUMMARY | 2025-01-07 13:25 | XMS_ITS ---
Author Organization [facility] Address [address] [place] [address] Care Team Providers Care Cerner Analyst Name Role Phone Trae Thompson MD Unavailable [phone] Onofre James MD PhD Unavailable Low Alvarez MD Primary Care Provider [phone] Brown Handley MD Unavailable [phone] Juan Diego Etienne MD Unavailable [phone] Suman Canales MD Unavailable Active Problems Patient Care Coordination No te Formatting of this note is d ifferent from the original. BMT Inpatient Care Coordination Overview Diagnosis [place] Floor [address] Treatment Plan Stacie/velcade/dex Reason for Admission 02/26/23 - recurrent LLQ Abd pain, N/V Transplant/IEC Planning BMT/IEC Plan HLA typing/IDMs [] Insurance Approval [] Discharge Planning Anticipated Discharge Date 03/02 Patient Education Completed [x] Issue to be Resolved Before Discharge Discharge Disposition HOME Requests Sent to Case Management, Pharmacy PA Team, or Medical Assistants Post-Discharge Follow-Up Living Situation/Distance from [facility] Caregiver Lab/Transfusion Frequency Labs are stable Venous Access & Care implanted vascular device Local Oncologist Contact Phone: Fax: Post-Discharge Office Visit (H30) KSG 03/27 Miscellaneous Notes: Problem Noted Date Diagnosed Date Need for immunization against influenza 12/10/19 25 Esophageal thickening 08/01/2023 Abnormal gastrointestinal PET scan 08/01/[address] scan 03/13/2023 History of colon polyps 03/13/2023 Anxiety 03/03/2023 Assessment & Plan (03/03/2023 1:12 PM ASSOCIATE ENTERTAINMENT EDITOR): Continue Sertraline 50 mg daily. LLQ abdominal pain 02/27/2023 Assessment & Plan (03/03/2023 1:11 PM ASSOCIATE ENTERTAINMENT EDITOR): Presents with 3 days of diarrhea, nausea [...] empiric therapy for acute diverticul[facility] at the [facility] given prior GI history, prior similar presentation, [...] months. Assessment & Plan (02/27/2023 3:30 PM ASSOCIATE ENTERTAINMENT EDITOR): EF35% TTE 05/29/22 No features of active heart failure or volume overload. GMDT: coreg 3.125 mg BID-hold for dehydration and poor oral intake Suspected Pneumonia 01/14/2023 Assessment & Plan (01/14/2023 1:05 AM ASSOCIATE ENTERTAINMENT EDITOR): Recent COVID-19 tested positive on 01/03/2023 treated [...] 01/14/2023 Assessment & Plan (01/14/2023 1:04 AM ASSOCIATE ENTERTAINMENT EDITOR): Continue home Breo and Singulair Abnormal urinalysis 01/14/2023 Assessment & Plan (01/14/2023 1:07 AM ASSOCIATE ENTERTAINMENT EDITOR): UA was positive for 1+ leukocyte esterase, 11-20 WBCs, 2+ bacteria. Denies any urinary frequency/dysuria/hematuria Status post Macrobid 1 dose in the [facility] Already on IV ceftriaxone for suspected pneumonia Moderate protein-calorie malnutrition 01/14/2023 Hx of multiple myeloma 01/13/2023 Vertigo 12/18/2022 Assessment & Plan (01/14/2023 1:07 AM ASSOCIATE ENTERTAINMENT EDITOR): Meclizine p.r.n. Assessment & Plan (12/18/2022 12:23 PM CDT): Symptoms consistent with vertigo. - Discharge home with meclizine QID PRN - Counseled pt on safety and fall prevention - Ambulating well with cane Hypothyroidism, unspecified 12/17/2022 Assessment & Plan (01/14/2023 1:00 AM ASSOCIATE ENTERTAINMENT EDITOR): Continue levothyroxine 50 mcg daily Assessment & Plan (12/17/2022 11:47 AM CDT): - c/w home synthroid. Anemia due to chemotherapy 07/11/2022 History of ischemic Cardiomyopathy 07/10/2022 Assessment & Plan (01/14/2023 1:02 AM ASSOCIATE ENTERTAINMENT EDITOR): Now with recovered LVEF( previously EF 46% [...] 06/23/2022 Cancer Staging:Clinical stage from 07/11/2022:RISS Stage III(Nkhr-8-quargzkvwlpxb (mg/L): 27.7, Albumin (g/dL): 3.6, ISS: Stage III, High-risk cytogenetics: Present, LDH: Normal) - Signed by Tiago Currie MD on 07/11/2022 Assessment & Plan (03/01/2023 5:41 PM ASSOCIATE ENTERTAINMENT EDITOR): Diagnosed May 2022. IgA Lambda Multiple Myeloma, [...] prn. Assessment & Plan (01/14/2023 12:59 AM ASSOCIATE ENTERTAINMENT EDITOR): s/pD15C7 of daratumumab/Bortezomib/Dexamethasone on 01/02/23 Transfuse per [...] (01/09/2022): Added automatically from request for surgery [id number] CAD (coronary artery disease) 04/06/2021 Assessment & Plan (01/14/2023 1:02 AM ASSOCIATE ENTERTAINMENT EDITOR): s/p PCI-LAD 12/24/2020 Continue aspirin, Coreg Assessment & Plan (07/10/2022 2:22 PM CDT): Denies any chest pain. Does admit to some dyspnea with exertion such as taking the stairs. Unclear etiology as it could be multi-factorial secondary to deconditioning, multiple myeloma and anemia (most recent hemoglobin 8.7). Continue aspirin, carvedilol and losartan. Essential hypertension 08/02/2020 Assessment & Plan (01/14/2023 1:00 AM ASSOCIATE ENTERTAINMENT EDITOR): Blood pressure stable Continue Coreg Assessment & Plan (12/18/2022 12:20 PM CDT): - Hold coreg, lasix, aldactone and losartan overnight. Can resume at discharge. Assessment & Plan (07/10/2022 2:19 PM CDT): Well controlled. Continue Carvedilol, losartan and spironolactone. Dyslipidemia 04/26/2020 Assessment & Plan (02/27/2023 3:33 PM ASSOCIATE ENTERTAINMENT EDITOR): Continue ezetimibe Assessment & Plan (07/10/2022 2:18 PM CDT): Last LDL at goal of < 70. Continue Zetia and [place] 3. 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 2000,R breast,T1BN0([facility] involved 2/3), ER+,ID+,Her2 neg AC x 3, Thiotepa/Novantrone x 1 RT,Tamoxifen tried, couldn't tolerate STAGE: TIB Nmi1,stage *IB New primary right breast: PATHOLOGY: 10/11/15 11/09/15 right TM/SLN; left TM Breast, right, lumpectomy: -Invasive lobular carcinoma 5.5 cm + 5 cm, ER(+) ID(+) Her 2 (-) Ki-67 37% 02/26/ LN [...] IIB [] III [] IV ER: Positive ID: Positive [id number]: Negative Surgery: [x] Yes [] No Surgery date: 11/09/2015 Surgical procedures/location/findings: Bilateral mastectomies with sentinel lymph node biopsy on the right. Final pathology on the right breast demonstrated invasive lobular carcinoma measuring greater than 5 cm, intermediate grade with a [place] score of 6 out of 9, margins [...] diseases and does not alter medical intervention. [employer] has a variant classification program which performs [...] other tests as indicated on each visit LOADING MACHINE TOOL SETTER Continue your yearly visit. *Physical exam and other tests (Pap test) as indicated on each visit. Please continue to see your primary care physician/LOADING MACHINE TOOL SETTER for all general health care recommended for a female your age. Possible late and/or superintendent container terminal effects that someone with this type of [...] scheduled for 02/08/2016 at 11:00 at the [facility] office 2) Follow up with Dr. Cotton [...] libido- physical exercise recommended. Can refer to [facility] program for counseling and possible acupuncture. 6) [...] Received flu shot 13) [employer] at local [facility] REFERRALS [] Star [] [facility] [] [facility] [employer] at the [facility] [] Other (Specify): ADDITIONAL RESOURCES Patients may have many questions and concerns after their cancer treatment ends. A list of local resources as provided below to assist you. [facility] cancer information center: [place] [employer] (ACS): www.acs.org National Cancer [place] (NCI): www.cancer.gov [place] Society of clinical oncology (ASCO): www.cancer.net K[employer]: www.komen.org [employer]: www.Ifbyphone Radiation therapy: www.rtanswers.org Patient signature: M.Patricia/PATCHER HELPER/RN signature: Date delivered on: 02/04/2016 60 minutes [...] Provider:Suman Canales MD Linked Problems Multiple myeloma Treatment Medications No medications scheduled. Bortezomib (D1,8,15,22) / Cyclophosphamide (D1,8,15,22) / Dexamethasone 28 Day Cycles - Myeloma* Plan Start Date:01/05/2025 Plan Provider:Suman Canales MD Linked Problems Multiple myeloma not having achieved remission (HCC) Treatment Medications Current Day (Day 8 , Cycle 1 - Planned for 01/13/2025) Next Day (Day 15, Cycle 1 - Planned for 01/20/2025) bortezomib (VELCADE)cycloPHOSphamid e (CYTOXAN)cycloPHOSphamid e IVPB in 100 mL (vial 200 mg/mL)(J9073) bortezomib (VELCADE) subcutaneous syringe 2.05 mgcycloPHOSphamide (J9073) 480 mg in sodium chloride 0.9% 100 mL IVPB bortezomib (VELCADE) subcutaneous syringe 2.05 mgcycloPHOSphamide (J9073) 480 mg in sodium chloride 0.9% 100 mL IVPB COVID-19 - BMT (CMV Positive) Adult Blood and Platelet Administration for Outpatient* Plan Start Date:07/12/2022 Plan Provider:Suman Canales MD Linked Problems Anemia due to chemotherapyMu ltiple myeloma Treatment Medications No medications scheduled. darbepoetin (ARANESP) Injection every 2 weeks-MDS* Plan Start Date:07/18/2022 Plan Provider:Suman Canales MD Linked Problems Multiple myeloma not having achieved remission (HCC)Anemia due to chemotherapy Treatment Medications No medications scheduled. Denosumab (Xgeva) Every 4 Weeks* Plan Start Date:07/25/2022 Plan Provider:Suman Canales MD Linked Problems Multiple myeloma, remission status unspecified (HCC) Treatment Medications Current Day (Day 1, Cycle 24 - Planned for 02/03/2025) No medications scheduled. No medications schedul ed. Electrolyte Replacement* Plan Start Date:03/02/2023 Plan Provider:Suman Canales MD Linked Problems Multiple myeloma Treatment Medications No medications scheduled. Hydration Therapy Plan* Plan Start Date:11/14/2022 Plan Provider:Suman Canales MD Linked Problems Multiple myeloma Treatment Medications No medications scheduled. IV Maintenance Therapy Plan & IV Maintenance Therapy Plan* Plan Start Date: 07/25/2023 Plan Provider:Suman Canales MD Linked Problems Multiple myeloma not having achieved remission (HCC) Treatment Medications No medications scheduled. Past [...] Nicole MD 4 of 12 cycles started Oncology Treatment (2) Plan Name Start Date Discontinue Date Treatment Medications Discontinue Reason Plan Provider Cycles Daratumumab SUBCUTANEOUS / Bortezomib (weekly) / Dexamethasone - 21/28-day cycles - Myeloma 07/04/2022 12/30/2024 bortezomib (VELCADE)darat umumab-fihj (DARZALEX FASPRO) (DARZALEX FASPRO)daratum umab-fihj (DARZALEZ FASPRO) (DARZELEX FASPRO) Therapy Complete Suman Nicole MD 29 of 33 cycles started Specialty Infusion Treatment Plan Name Start Date Discontinue Date Treatment Medications Discontinue Reason Plan Provider Denosumab (XGEVA) Injection 07/25/2022 08/17/2023 No medications scheduled. Therapy Complete Suman Goss MD Lifetime Dose Tracking * Chemical Lifetime Dose Automatic Entry Manual Entr y Fluoro Time 48.801 minutes 9.801 minutes 39 minutes cyclophosphamide 305.732 mg/m2 (480 mg) 305.732 mg/m2 (480 mg) 0 mg/m2 (0 mg) Air kerma at the reference point (Ka,r) 1,218.43 mGy 5.43 mGy 1,213 mGy DLP 3,709 mGycm 3,709 mGycm 0 mGycm DAP 58.785 Gy-cm2 0 Gy-cm2 58.785 Gy-cm2 Resolved Problems Problem Noted Date Diagnosed Date Resolved Date Malnutrition 02/27/2023 03/04/2023 Assessment & Plan (02/27/2023 3:29 PM ASSOCIATE ENTERTAINMENT EDITOR): Presents with significant weight loss with examination revealing temporal depression, loss of buccal fat and shrunken cheeks Meets the criteria for malnutrition Plan: Will obtain RD consult Encourage PO intake (>50% of portion of meals) Assistance with meals as needed by family gore maker/provider team Weekly weights and charting Oral nutrition supplementation TID Nausea & vomiting 12/16/2022 03/04/2023 Assessment & Plan (12/17/2022 11:44 AM CDT): - supportive care with anti-emetics PRN Diverticulitis 09/04/2019 11/01/2019 Overview (09/04/2019): Added automatically from request for surgery [id number] Sigmoid diverticulitis 09/03/201910/31
--- OUTSIDE RECORDS SUMMARY | 2025-01-07 13:26 | XMS_ITS | Encounter Summary ---
Author Organization [facility] Address [address] [place] [address] Phone Care Team Providers Care Medical Receptionist Medical Assistant Name Role Phone Trae Thompson MD Unavailable [phone] Onofre James MD PhD Unavailable [phone] Low Alvarez MD Primary Care Provider Brown Handley MD Unavailable Juan Diego Etienne MD Unavailable [phone] Suman Canales MD Unavailable Reason for Referral * Diagnostic Imaging (Routine) - Authorized Specialty Diagnoses / Procedures Referred By Contac t Referred To Contact Diagnoses Multiple myeloma, remission status unspecified (HCC) Procedures XR Hand Right 2 Views Holly Mckeon DNP [address] [place] [address] Phone: tel: fax: [address] [address] Referral ID Status Reason Start Date Expiration Date V isits Requested Visits Authorized [id number] Authorized 01/07/2025 02/06/2026 1 1 MAKER Encounter Details Date Type Department Care Team (Late st Contact Info) Description 01/07/2025 Orders Only [facility] [address] [place] [address] Dayanara Balderas RN Multiple myeloma, remission status unspecified (HCC) (Primary Dx) Social History Tobacco Use Types Packs/Day Years [...] 03/02/2023 How often do you attend [facility] or oriental orthodox services? Never 03/02/2023 Do you belong to [...] place to sleep or slept in a custodial (including now)? No 03/02/2023 Personal Safety Answer Date Recorded Have you ever been in or are you currently in a harmful physical or emotional relationship or is someone making you feel afraid or unsafe? Denies 06/13/2024 Comments No Sex and Gender Information Value Date Recorded Sex Assigned at Not on file Legal Sex Female 10:03 AM HAT MAKER Gender Identity Female 11/27/2023 9:47 AM CDT Sexual Orientation Not on file documented as of this encounter Plan of Treatment Scheduled Orders Name Type Priority Associated Diagnoses Orde r Schedule XR Hand Right 2 Views Imaging Schedule Routine, Read Routine (OP Routine) Multiple myeloma, remission status unspecified (HCC) Expected: 01/07/2025, Expires: 01/07/2026 documented as of this encounter Visit Diagnoses Diagnosis Multiple myeloma, remission status unspecified (HCC)- Primary documented in this encounter Care Teams Medical Receptionist Medical Assistant Relationship Specialty Start Date End Date Low Alvarez MD PCP - General Internal Medicine 10/22/19 Trae Thompson MD Surgeon Colon and Rectal Surgery 06/25/19 Onofre James MD PhD Consulting Physician Gastroenterology 06/25/19 Brown Handley MD Sales Account Leader Gastroenterology 12/10/19 Juan Diego Etienne MD Referring Physician Cardiology 01/04/22 Suman Lackey MD [address] [facility] [address] IM BONE MARROW TRANSPLANT, , [place] [address] Medical Oncologist/Senior Medical Writer Hematology and Oncology 12/19/24 documented as of this encounter
--- OUTSIDE RECORDS SUMMARY | 2025-01-07 13:26 | XMS_ITS | Clinical Summary ---
Author Organization [facility] Address [address] [place] [address] Care Team Providers Care Diesel Engine Fitter Name Role Phone Low Alvarez MD Primary Care Provider [phone] Source Comments [facility] Affiliates and Associated Physician Practices is amultiple site organization consisting of ambulatory clinics and hospital sitesin [place], [place], [place] and [place]. This disclosure is being madepursuant to the Care Everywhere program and may not contain all information available regarding this patient. Last updated 17.[facility] [employer] Allergies Active Allergy Reactions Criticality Noted Date [...] by mouth. [place] [address] Units by mouth every 7 days. Active [...] on file Legal Sex Female 6:12 AM ROTARY SWAGING MACHINE OPERATOR Gender Identity Not on file Sexual Orientation Not on file Last Filed Vital Signs Vital Sign Reading Time Taken Comments Blood Pressure 142/74 01/20/2013 2:03 PM ROTARY SWAGING MACHINE OPERATOR Pulse 98 01/20/2013 2:03 PM ROTARY SWAGING MACHINE OPERATOR Temperature 36.6 C (97.9 F) 01/20/2013 2:03 PM ROTARY SWAGING MACHINE OPERATOR Respiratory Rate 20 01/20/2013 2:03 PM ROTARY SWAGING MACHINE OPERATOR Oxygen Saturation 98% 07/21/2009 12:30 PM CDT Inhaled Oxygen Concentration - - Weight 66.9 kg (147 lb 6.4 oz) 01/20/2013 2:03 P M ROTARY SWAGING MACHINE OPERATOR Height 152.4 cm (5') 01/20/2013 2:03 PM ROTARY SWAGING MACHINE OPERATOR Body Mass Index 28.79 01/20/2013 2:03 PM ROTARY SWAGING MACHINE OPERATOR Plan of Treatment Health Maintenance Due Date Last Done Comments BONE DENSITY TESTING 1941 DTAP/TDAP/TD VACCINES (1 - Tdap) 1960 PNEUMOCOCCAL VACCINE 50+ (1 of 1 - PCV) 08/28/1991 ZOSTER VACCINE (1 of 2) 08/28/1991 Respiratory Syncytial Virus (RSV) Vaccine Pt: or over 60 yrs (1 - 1-dose 75+ series) 2016 DEPRESSION SCREENING 02/27/2024 COVID-19 VACCINE (1 - 2023-2 5 season) 2024 INFLUENZA VACCINE (#1) 2024 HEPATITIS B VACCINE Aged Out No [...] age to complete this topic Care Teams Diesel Engine Fitter Relationship Specialty Start Date End Date Low Alvarez MD [address] [place] [address] PCP - General 07/21/09
--- OUTSIDE RECORDS SUMMARY | 2025-01-07 13:26 | XMS_ITS | Encounter Summary ---
Author Organization [facility] Address [address] [place] [address] Phone Care Team Providers Care Sat Math Tutor Name Role Phone Trae Thompson MD Unavailable [phone] Onofre James MD PhD Unavailable [phone] Low Alvarez MD Primary Care Provider [phone] Brown Handley MD Unavailable Juan Diego Etienne MD Unavailable [phone] Suman Canales MD Unavailable Encounter Details Date Type Department Care Team (Late st Contact Info) Description 01/06/2025 Orders Only [facility] [address] [place] [address] Dayanara Balderas, RN Multiple myeloma not having achieved remission (HCC) (Primary Dx); Multiple myeloma, remission status unspecified (HCC) Social History Tobacco Use Types Packs/Day Years Used Date Smoking Tobacco: Never Smokeless Tobacco: Never Alcohol Use Standard Drinks/Week Comments Yes 0 (1 standard drink = 0.6 oz pur e alcohol) occ glass of wine [facility] Utilities Answer Date Recorded In the past 12 months has Chloe + Isabel electric, gas, oil, or water company threatened [...] often do you attend chur ch or mandaen services? Never 03/02/2023 Do you belong to any clubs o r organizations such as spiritism groups, unions, fraternal or athletic groups, or [...] place to sleep or slept in a long term (including now)? No 03/02/2023 Personal Safety Answer Date Recorded Have you ever been in or are you currently in a harmful physical or emotional relationship or is someone making you feel afraid or unsafe? Denies 06/13/2024 Comments No Sex and Gender Information Value Date Recorded Sex Assigned at Not on file Legal Sex Female 10:03 AM SURGICAL INSTRUMENT MAKER Gender Identity Female 11/27/2023 9:47 AM CDT Sexual Orientation Not on file documented as of this encounter Plan of Treatment Not on file documented as of this encounter Results * Phosphorus (01/06/2025 1:18 PM SURGICAL INSTRUMENT MAKER) Pathologist [facility] Phosphorus, pl 3.0 2.3 - 4.5 mg/dL Blood 01/06/2025 1:18 PM SURGICAL INSTRUMENT MAKER 01/06/2025 1:44 PM SURGICAL INSTRUMENT MAKER Suman Canales MD LAB BLOOD ORDER CRISTEL Final Result [facility] Department [place] [address] * Comprehensive metabolic panel (01/06/2025 1:18 PM SURGICAL INSTRUMENT MAKER) [facility] Sodium 141 135 - 145 mmol/L Potassium, pl 4.6 3.3 - 4.9 mmol/L [facility] Chloride 104 97 - 110 mmol/L [facility] CO2 28 22 - 32 mmol/L [facility] Anion gap 9 2 - 15 mmol/L [facility] BUN 17 6 - 25 mg/dL [facility] Creatinine 0.93 0.60 - 1.10 mg/dL [facility] Glucose 138 70 - 199 mg/dL [facility] Comment: Interpretive Data Fasting glucose [...] Calcium 9.6 8.5 - 10.3 mg/dL [facility] Bilirubin, total 0.3 0.1 - 1.2 mg/dL [facility] Protein, pl 6.6 6.5 - 8.5 g/dL [facility] Albumin 4.2 3.5 - 5.0 g/dL [facility] Alk phos 52 40 - 130 Units/L [facility] ALT 13 7 - 45 Units/L [facility] AST 25 10 - 45 Units/L [facility] Blood 01/06/2025 1:18 PM SURGICAL INSTRUMENT MAKER 01/06/2025 1:44 PM SURGICAL INSTRUMENT MAKER Suman Canales MD LAB BLOOD ORDER CRISTEL Final Result [facility] Department of Laboratories [place], [place] [id number] * (ABNORMAL) CBC with auto differential (01/06/2025 1:18 PM SURGICAL INSTRUMENT MAKER) WBC 6.43 3.80 - 9.90 K/cumm Comment:Testing performed by : [facility], [address] [place] [phone] Hgb 11.4(L) 11.9 - 15.5 g/dL [facility] Comment:Testing performed by : [facility], [address] [place] [phone] Hct 33.8(L) 35.6 - 45.5 % [facility] BJ Comment:Testing performed by : [facility], [address] [place] [phone] Plt 210 150 - 400 K/cumm [facility] BJ Comment:Testing performed by : [facility], [address] [place] [address] MPV 9.1 6.8 - 10.4 fL TA KENDRICK Comment:Testing performed by : [facility], [address] [place] [address] RBC 3.31(L) 3.90 - 5.20 M/cumm CERENEDINA KENDRICK Comment:Testing performed by : [facility], [address] [place], [place] [phone] MCV 102.0(H) 81.3 - 96.4 fL TA KENDRICK Comment:Testing performed by : [facility], [address] [place] [address] MCH 34.4(H) 27.1 - 33.3 pg TA KENDRICK Comment:Testing performed by : [facility], [address] [place] [address] MCHC 33.7 32.3 - 35.7 g/dL TA KENDRICK Comment:Testing performed by : [facility], [address] [place] [address] RDW CV 14.7 11.1 - 14.9 % [facility] Comment:Testing performed by : [facility], [address] [place] [address] NRBC abs 0.00 0.00 - 0.01 K/cumm [facility] Comment:Testing performed by : [facility], [address] [place] [address] Blood 01/06/2025 1:18 PM SURGICAL INSTRUMENT MAKER 01/06/2025 1:41 PM SURGICAL INSTRUMENT MAKER us Suman Canales MD LAB BLOOD ORDER CRISTEL Final Result TA [facility]DR[facility] Department [place] [address] documented in this encounter Visit Diagnoses Diagnosis Multiple myeloma, remission status unspecified (HCC) documented in this encounter Care Teams Sat Math Tutor Relationship Specialty Start Date End Date Low Alvarez MD PCP - General Internal Medicine 10/22/19 Trae Thompson MD Surgeon Colon and Rectal Surgery 06/25/19 Onofre James MD PhD Consulting Physician Gastroenterology 06/25/19 Brown Handley MD Housekeeping Associate Gastroenterology 12/10/19 Juan Diego Etienne MD Referring Physician Cardiology 01/04/22 Suman Lackey MD [address] [facility] [address] IM BONE MARROW TRANSPLANT, [address] [place] [address] Medical Oncologist/Deputy District Customs Director Hematology and Oncology 12/19/24 documented as of this encounter
--- OUTSIDE RECORDS SUMMARY | 2025-01-07 13:26 | XMS_ITS | Clinical Summary ---
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 2001,R breast,T1BN0([facility]HC involved 2/3), ER+,OH+,Her2 neg AC x 3, Thiotepa/Novantrone x 1 RT,Tamoxifen tried, couldn't tolerate STAGE: TIB Nmi1,stage *IB New primary right breast: PATHOLOGY: 10/11/15 11/09/15 right TM/SLN; left TM Breast, right, lumpectomy: -Invasive lobular carcinoma 5.5 cm + 5 cm, ER(+) OH(+) Her 2 (-) Ki-67 37% // LN [...] IIB [] III [] IV ER: Positive OH: Positive [id number]: Negative Surgery: [x] Yes [] No Surgery date: 11/09/2015 Surgical procedures/location/findings: Bilateral mastectomies with sentinel lymph node biopsy on the right. Final pathology on the right breast demonstrated invasive lobular carcinoma measuring greater than 5 cm, intermediate grade with a Leola score of 6 out of 9, margins [...] diseases and does not alter medical intervention. [employer] has a variant classification program which performs [...] other tests as indicated on each visit SUPPORT CLERK Continue your yearly visit. *Physical exam and other tests (Pap test) as indicated on each visit. Please continue to see your primary care physician/SUPPORT CLERK for all general health care recommended for a female your age. Possible late and/or parts counterman effects that someone with this type of [...] at 11:00 at the [facility] 2) Follow up with Dr. Cotton [...] libido- physical exercise recommended. Can refer to [facility] program for counseling and possible acupuncture. 6) [...] Received flu shot 13) [employer] at local [facility] REFERRALS [] Star [] [facility] Integrative Therapy [] [facility] Pastoral Services [employer] at the [facility] [] Other (Specify): ADDITIONAL RESOURCES Patients may have many questions and concerns after their cancer treatment ends. A list of local resources as provided below to assist you. [facility] cancer information center: [place] Cancer Society (ACS): www.acs.org National Cancer Regent (NCI): www.cancer.gov [place] Society of clinical oncology (ASCO): www.cancer.net K[employer]: www.komen.org [employer]: www.Hot HotelstrongLifeBlinx Radiation therapy: www.rtanswers.org Patient signature: Eva/NYLON MENDER/RN signature: Date delivered on: 02/04/2016 60 minutes of time were spent with the patient and over 50% of time was spent in counseling, discussing her issues, chief complaints, diet, exercise, prevention, supplements, etc. or in the coordination of care. 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 Gender Identity Not on file Sexual Orientation [...] 50+ YEA RS (2 of 2 - PPSV23, PCV20, or PCV21) 03/21/2018 01/24/2018, 02/26/2015 INFLUENZA VACCINE (#1) 2024 1, 12/09/2019, 01/16/2017, Additional history exists Flex [...] DENSITY 2 SITES (10/15/2008) T-SCORE FEMUR >=-0.99 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 AL RADIOLOGY T-SCORE SPINE >=-0.99 ASSISTANT 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 AL RADIOLOGY T-SCORE WRIST >=-0.99 ASSISTANT 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 AL RADIOLOGY T-SCORE HEEL >=-0.99 EXTERNA L RADIOLOGY Anatomical Region Laterality Modality Other Leticia Segundo MD DIAGNOSTIC IMAGING ORDERABLES Final Result from Last 3 Months or Most Recently Relevant to Health Maintenance Insurance MEDICARE PART A AND B BCBS BLUE ACCESS/TRUE BLUE PPO Advance Directives For more information, please contact: [phone] * Full Code (Latest Code Status on [...] 10:03 AM 10/11/2015 4:11 PM Care Teams Sand Cutter Relationship Specialty Start Date End Date Low Alvarez MD [address] [place] [address] PCP - General 10/15/08
--- OUTSIDE RECORDS SUMMARY | 2025-01-07 13:26 | XMS_ITS ---
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 Primary Care: Low Alvarez MD Referring Provider: No referring provider defined for this encounter. Other: Dr Keeley Cotton Primary Care: Low Alvarez MD Referring Provider: Low Alvarez MD [address] [place] [address] Other: Problem Noted Date Diagnosed Date Mild intermittent asthma with acute exacerbation 07/14/2016 Lump of right breast 10/11/2015 Bilateral malignant neoplasm involving both nipple and areola in female 10/15/2008 Cancer Staging:Clinical stage from 11/28/2000:Stage I(T1b, N0, M0, Free text: 2 nodes ihc +) - Unsigned Pathologic: Unsigned Overview (02/04/2016): Images from the original note were not included. 2000,R breast,T1BN0([facility]HC involved 2/3), ER+,NV+,Her2 neg AC x 3, Thiotepa/Novantrone x 1 RT,Tamoxifen tried, couldn't tolerate STAGE: TIB Nmi1,stage *IB New primary right breast: PATHOLOGY: 10/11/15 11/09/15 right TM/SLN; left TM Breast, right, lumpectomy: -Invasive lobular carcinoma 5.5 cm + 5 cm, ER(+) NV(+) Her 2 (-) Ki-67 37% 02/26/ LN [...] HER-2/brian negative and intermediate grade with a Mercer score 5 out of 9. Imaging performed [...] IIB [] III [] IV ER: Positive NV: Positive [id number]: Negative Surgery: [x] Yes [] No Surgery date: 11/09/2015 Surgical procedures/location/findings: Bilateral mastectomies with sentinel lymph node biopsy on the right. Final pathology on the right breast demonstrated invasive lobular carcinoma measuring greater than 5 cm, intermediate grade with a Mercer score of 6 out of 9, margins [...] diseases and does not alter medical intervention. 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 *Physical exam and other tests (Pap test) as indicated on each visit. Please continue to see your primary care physician/WHEEL TRUING MACHINE TENDER for all general health care recommended for a female your age. Possible late and/or longwall headgate operator effects that someone with this type [...] scheduled for 02/08/2016 at 11:00 at the [facility] 2) Follow up with Dr. Cotton [...] Received flu shot 13) [employer] at local [facility] REFERRALS [] Star [] [facility] Integrative Therapy [] [facility] Pastoral Services [employer] at the [facility] [] Other (Specify): ADDITIONAL RESOURCES Patients may have many questions and concerns after their cancer treatment ends. A list of local resources as provided below to assist you. [facility] cancer information center: [place] [employer] (ACS): www.acs.org National Cancer [place] (NCI): www.cancer.gov [place] Society of clinical oncology (ASCO): www.cancer.net K[employer]: www.komen.org [employer]: www.Ubertrongwumo Radiation therapy: www.rtanswers.org Patient signature: Eva/YVES/NAKUL signature: [...]
--- OUTSIDE RECORDS SUMMARY | 2025-01-07 13:26 | XMS_ITS | Clinical Summary ---
Author Organization [facility] center[facility] Address [address] [place] [address] Care Team Providers Care Slipcover Cutter Name Role Phone Trae Thompson MD Unavailable [phone] Onofre James MD PhD Unavailable Low Alvarez MD Primary Care Provider Brown Handley MD Unavailable Juan Diego Etienne MD Unavailable Suman Canales MD Unavailable Allergies Active Allergy Reactions Criticality Noted Date Comments Adhesive Rash Medium 11/30/2020 Atorvastatin Muscle pain Medium 01/12/2021 Azithromycin Hives Medium 06/30/2013 Baclofen Hives Medium 03/24/2009 Cefepime Other (See comments) Low 10/14/2008 Tolerated Ceftriaxone without issues Ciprofloxacin Hives,Unknown Medium 10/29/2014 Coconut Hives,Itching Medium 10/01/2015 gagging Ibuprofen Stomach upset Low 07/16/2024 Burning sensation. Morphine Itching Low 10/29/2014 From IV drip Penicillins Hives Medium 06/30/2013 Propoxyphene Hcl Hives Medium 06/30/2013 Medications montelukast (SINGULAIR) 10 mg tablet Take 1 tablet (10 mg total) by mouth nightly Active albuterol HFA (PROVENTIL HFA,VENTOLIN HFA,PROAIR HFA) 90 mcg/actuation inhaler Inhale 2 puffs as needed Active multivitamin-min erals-lutein (Multivitamin 50 Plus) tablet Take 1 tablet [...] capsule Take by mouth every morning Active lutein-zeaxanthi n 25-5 mg capsule Take by mouth every morning EYE vitamin Active traMADoL (ULTRAM) 50 mg tabletIndication s:History of incisional hernia repair Take 1 tablet (50 mg total) by mouth every 6 (six) hours as needed for pain 20 tablet Active levothyroxine (SYNTHROID) 50 mcg tablet Take [...] 20 tablet Active naloxone (NARCAN) 4 mg/actuation spray,non-aeroso l Administer 1 spray into affected nostril(s) as [...] (10 mg total) by mouth daily Active meclizine (ANTIVERT) 12.5 mg tablet Take 1 tablet (12.5 mg total) by mouth 2 (two) times a day as needed for dizziness for up to 10 days 20 tablet 024 Active lidocaine-priloc troy (EMLA) cream Apply topically as needed for pain 30 g 1 024 Active magnesium citrate 100 mg tablet Take by mouth daily Active carvediloL (COREG) 3.125 mg tablet TAKE 1 TABLET(3.125 MG) BY MOUTH TWICE DAILY WITH MEALS 180 tablet 3 025 Active ALPRAZolam (XANAX) 0.25 mg tablet Take by mouth 3 (three) times a day as needed 025 Active loperamide (IMODIUM) 2 mg capsuleIndicatio ns:Diarrhea, unspecified type TAKE 1 CAPSULE(2 MG) BY MOUTH FOUR TIMES DAILY NEEDED FOR DIARRHEA 30 capsule 1 025 Active benzonatate (TESSALON) 100 mg capsuleIndicatio ns:Cough Take 1 capsule (100 mg total) by mouth 2 (two) times a day as needed for cough 10 capsule 025 Active pregabalin (LYRICA) 25 mg capsuleIndicatio ns:LLQ pain TAKE 1 CAPSULE(25 MG) BY MOUTH DAILY 30 capsule 5 025 Active sacubitriL-valsa rtan (ENTRESTO) 24-26 mg tablet TAKE 1/2 TABLET BY MOUTH TWICE DAILY 90 tablet [address] (CYMBALTA) 60 mg capsule Take by mouth daily 025 Active prochlorperazine (Compazine) 10 mg tabletIndication s:Multiple myeloma not having achieved remission (HCC) Take 1 tablet (10 mg total) by mouth every 6 (six) hours as needed for nausea or vomiting Use first for nausea 60 tablet 3 025 Active ondansetron (ZOFRAN) 8 mg tabletIndication s:Multiple myeloma not having achieved remission (HCC) Take 1 tablet (8 mg total) by mouth every 8 (eight) hours as needed for nausea or vomiting Use if prochlorperazine does not stop nausea. 24 tablet 3 025 Active valACYclovir (VALTREX) 500 mg tabletIndication s:Multiple myeloma not having achieved remission (HCC) Take 1 tablet (500 mg total) by mouth daily 30 tablet 3 025 Active prochlorperazine (COMPAZINE) 10 mg tabletIndication s:Multiple myeloma not having achieved remission (HCC) Take 1 tablet (10 mg total) by mouth every 6 (six) hours as needed for nausea 30 tablet 3 024 12/31 Discontinued ondansetron ODT (ZOFRAN-ODT) 4 mg disintegrating tabletIndication s:nausea vomiting Take 1 tablet (4 mg total) by mouth every 8 (eight) hours as needed for nausea or vomiting Dissolve 1 tablet oral every 4 hours as needed for nausea or vomiting. 15 tablet 025 12/31 Discontinued valACYclovir (VALTREX) 500 mg tabletIndication s:Multiple myeloma, remission status unspecified (HCC) TAKE 1 TABLET(500 MG) BY MOUTH DAILY 30 tablet 5 025 12/31 Discontinued oxyCODONE (ROXICODONE) 5 mg immediate release tabletIndication s:Pain Take 1 tablet (5 mg total) by mouth every 6 (six) hours as needed for pain for up to 7 days 28 tablet 025 12/26 Active Problems Patient Care Coordination No te Formatting of this note is d ifferent from the original. BMT Inpatient Care Coord[place] [address] Treatment Plan Stacie/velcade/dex Reason for Admission 02/26/23 [...] 03/03/2023 Assessment & Plan (03/03/2023 1:12 PM HOUSEMAID): Continue Sertraline 50 mg daily. LLQ abdominal pain 02/27/2023 Assessment & Plan (03/03/2023 1:11 PM HOUSEMAID): Presents with 3 days of diarrhea, nausea [...] months. Assessment & Plan (02/27/2023 3:30 PM HOUSEMAID): EF35% TTE 05/29/22 No features of active heart failure or volume overload. GMDT: coreg 3.125 mg BID-hold for dehydration and poor oral intake Suspected Pneumonia 01/14/2023 Assessment & Plan (01/14/2023 1:05 AM HOUSEMAID): Recent COVID-19 tested positive on 01/03/2023 treated [...] 01/14/2023 Assessment & Plan (01/14/2023 1:04 AM HOUSEMAID): Continue home Breo and Singulair Abnormal urinalysis 01/14/2023 Assessment & Plan (01/14/2023 1:07 AM HOUSEMAID): UA was positive for 1+ leukocyte esterase, 11-20 WBCs, 2+ bacteria. Denies any urinary frequency/dysuria/hematuria Status post Macrobid 1 dose in the [facility] Already on IV ceftriaxone for suspected pneumonia Moderate protein-calorie malnutrition 01/14/2023 Hx of multiple myeloma 01/13/2023 Vertigo 12/18/2022 Assessment & Plan (01/14/2023 1:07 AM HOUSEMAID): Meclizine p.r.n. Assessment & Plan (12/18/2022 12:23 PM CDT): Symptoms consistent with vertigo. - Discharge home with meclizine QID PRN - Counseled pt on safety and fall prevention - Ambulating well with cane Hypothyroidism, unspecified 12/17/2022 Assessment & Plan (01/14/2023 1:00 AM HOUSEMAID): Continue levothyroxine 50 mcg daily Assessment & Plan (12/17/2022 11:47 AM CDT): - c/w home synthroid. Anemia due to chemotherapy 07/11/2022 History of ischemic Cardiomyopathy 07/10/2022 Assessment & Plan (01/14/2023 1:02 AM HOUSEMAID): Now with recovered LVEF( previously EF 46% [...] 06/23/2022 Cancer Staging:Clinical stage from 07/11/2022:RISS Stage III(Aizm-8-rxljkwwlfwify (mg/L): 27.7, Albumin (g/dL): 3.6, ISS: Stage III, High-risk cytogenetics: Present, LDH: Normal) - Signed by Tiago Currie MD on 07/11/2022 Assessment & Plan (03/01/2023 5:41 PM HOUSEMAID): Diagnosed May 2022. IgA Lambda Multiple Myeloma, [...] prn. Assessment & Plan (01/14/2023 12:59 AM HOUSEMAID): s/[id number] of daratumumab/Bortezomib/Dexamethasone on 01/02/23 Transfuse per [...] (01/09/2022): Added automatically from request for surgery [id number] CAD (coronary artery disease) 04/06/2021 Assessment & Plan (01/14/2023 1:02 AM HOUSEMAID): s/p PCI-LAD 12/24/2020 Continue aspirin, Coreg Assessment & Plan (07/10/2022 2:22 PM CDT): Denies any chest pain. Does admit to some dyspnea with exertion such as taking the stairs. Unclear etiology as it could be multi-factorial secondary to deconditioning, multiple myeloma and anemia (most recent hemoglobin 8.7). Continue aspirin, carvedilol and losartan. Essential hypertension 08/02/2020 Assessment & Plan (01/14/2023 1:00 AM HOUSEMAID): Blood pressure stable Continue Coreg Assessment & Plan (12/18/2022 12:20 PM CDT): - Hold coreg, lasix, aldactone and losartan overnight. Can resume at discharge. Assessment & Plan (07/10/2022 2:19 PM CDT): Well controlled. Continue Carvedilol, losartan and spironolactone. Dyslipidemia 04/26/2020 Assessment & Plan (02/27/2023 3:33 PM HOUSEMAID): Continue ezetimibe Assessment & Plan (07/10/2022 2:18 PM CDT): Last LDL at goal of < 70. Continue Zetia and [place] 3. 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 [employer] has a variant classification program which performs [...] other tests as indicated on each visit [facility] SPECIALIST Continue your yearly visit. *Physical exam and other tests (Pap test) as indicated on each visit. Please continue to see your primary care physician/SEAFOOD SPECIALIST for all general health care recommended for a female your age. Possible late and/or group home effects that someone with this type [...] scheduled for 02/08/2016 at 11:00 at the [facility] 2) Follow up with Dr. Cotton scheduled [...] libido- physical exercise recommended. Can refer to [facility] program for counseling and possible acupuncture. 6) [...] Received flu shot 13) [facility] at local HEALTH SYSTEM REFERRALS [] Star [] [facility] [] [employer] [facility] [employer] at the HEALTH SYSTEM [] Other (Specify): ADDITIONAL RESOURCES Patients may have many questions and concerns after their cancer treatment ends. A list of local resources as provided below to assist you. [facility] cancer information center: [place] [employer] (ACS): www.acs.org National Cancer Amity (NCI): www.cancer.gov [place] Society of clinical oncology (ASCO): www.cancer.net K[employer]: www.komen.org [employer]: www.livestrong.easy2comply ([employer]) Radiation therapy: www.rtanswers.org Patient signature: Eva/TUNGSTEN REFINER/RN signature: Date delivered on: 02/04/2016 60 minutes of time were spent with the patient and over 50% of time was spent in counseling, discussing her issues, chief complaints, diet, exercise, prevention, supplements, etc. or in the coordination of care. Resolved Problems Problem Noted Date Diagnosed Date Resolved Date Malnutrition 02/27/2023 03/04/2023 Assessment & Plan (02/27/2023 3:29 PM HOUSEMAID): Presents with significant weight loss with examination revealing temporal depression, loss of buccal fat and shrunken cheeks Meets the criteria for malnutrition Plan: Will obtain RD consult Encourage PO intake (>50% of portion of meals) Assistance with meals as needed by family sales support representative/provider team Weekly weights and charting Oral nutrition supplementation TID Nausea & vomiting 12/16/2022 03/04/2023 Assessment & Plan (12/17/2022 11:44 AM CDT): - supportive care with anti-emetics PRN Diverticulitis 09/04/2019 11/01/2019 Overview (09/04/2019): Added automatically from request for surgery [id number] Sigmoid diverticulitis 09/03/201910/31 Encounters Date Type Department Care Team Description 01/07/2025 Orders Only [facility]row Transplant [address] [place] [address] Dayanara Balderas, NAKUL Multiple myeloma, remission status unspecified (HCC) (Primary Dx) 01/06/2025 3:30 PM HOUSEMAID Infusion [facility] - Infusion [address] [facility] Floor [address] [place] [address] Multiple myeloma, remission status unspecified (HCC) 01/06/2025 2:00 PM HOUSEMAID Infusion [facility] - Infusion [address] [facility] [address] [place] [address] Multiple myeloma, remission status unspecified (HCC) (Primary Dx); Multiple myeloma not having achieved remission (HCC) 01/06/2025 1:00 PM HOUSEMAID Lab [facility] - Lab Collection [address] [address] Multiple myeloma not having achieved remission (HCC); Multiple myeloma, remission status unspecified (HCC) 01/06/2025 Orders Only [facility] Bone Marrow Transplant [address] [place] [address] Dayanara Balderas RN Multiple myeloma not having achieved remission (HCC) (Primary Dx); Multiple myeloma, remission status unspecified (HCC) 12/30/2024 3:00 PM HOUSEMAID Office Visit [facility] Medicine Bone Marrow Transplant [address] [place] [phone] Suman Ulloa MD Multiple myeloma, remission status unspecified (HCC) 12/30/2024 2:00 PM HOUSEMAID Lab [facility] Medicine Oncology Lab [address] [place] [phone] Multiple myeloma, remission status unspecified (HCC) 12/30/2024 1:45 PM HOUSEMAID Clinical Support [facility] - Lab Collection [address] [place] [phone] Multiple myeloma not having achieved remission (HCC) (Primary Dx); Multiple myeloma, remission status unspecified (HCC) 12/30/2024 [facility] [address] [phone] Lily Estrella RPh 12/19/2024 Orders Only [facility] Medicine Bone Marrow Transplant [address] [phone] Tamiko Jo RN Multiple myeloma not having achieved remission (HCC) (Primary Dx) 12/19/2024 Telephone [facility] Transplant [address] [facility] [place] [address] Holly Mckeon DNP 12/19/2024 Orders Only [facility]row Transplant [address] [place] [phone] Dayanara Balderas RN Multiple myeloma, remission status unspecified (HCC) (Primary Dx) 12/16/2024 1:09 PM CDT - 12/16/2024 11:59 PM CDT Hospital Encounter [facility] [address] [place] [phone] Discharge Disposition: Discharge to home or self care 12/16/2024 1:09 PM CDT - 12/16/2024 11:59 PM CDT Hospital Encounter [facility]) [address] [place] [address] Multiple myeloma, remission status unspecified (HCC) Discharge Disposition: Discharge to home or self care 12/12/2024 Telephone [facility] Transplant [address] [place] [phone] Holly Mckeon DNP 12/12/2024 Orders Only [facility] Transplant [address] [place] [phone] Dayanara Balderas, NAKUL Multiple myeloma, remission status unspecified (HCC) (Primary Dx) 12/09/2024 2:45 PM CDT Infusion [facility] - Infusion [address] [facility] [address] [place] [address] Multiple myeloma, remission status unspecified (HCC) 12/09/2024 2:30 PM CDT Infusion [facility] - Infusion [address] [facility] Floor [address] [place] [address] Need for immunization against influenza (Primary Dx); Multiple myeloma, remission status unspecified (HCC) 12/09/2024 1:00 PM CDT Office Visit [facility] Transplant [facility] Floor [address] [place] [address] Holly Mckeon DNP Multiple myeloma, remission status unspecified (HCC) (Primary Dx) 12/09/2024 12:00 PM CDT Lab [facility] - Lab Collection [address] [place] [address] Multiple myeloma, remission status unspecified (HCC) 12/09/2024 Orders Only [facility]row Transplant [address] [facility] Floor [address] [place] [phone] Leelee Chung, [facility] 12/09/2024 Orders Only [facility]row Transplant [address] [facility] Floor [address] [place] [phone] Lily Estrella, [facility] 12/01/2024 10:15 AM CDT Office Visit [facility] Cardiology [facility] 8th [place] [address] [place] [address] Juan Diego Etienne MD Left bundle branch block (Primary Dx); Dyslipidemia; Essential hypertension; Coronary artery disease involving red cliff coronary artery of red cliff heart without angina pectoris 11/11/2024 2:45 PM CDT Infusion [facility] - Infusion [address] [place] [address] Multiple myeloma, remission status unspecified (HCC) 11/11/2024 2:30 PM CDT Infusion [facility] - Infusion [address] [place] [address] Multiple myeloma, remission status unspecified (HCC) (Primary Dx); Multiple myeloma not having achieved remission (HCC) 11/11/2024 1:30 PM CDT Clinical Support [facility] - Lab Collection [address] [place] [address] Multiple myeloma, remission status unspecified (HCC) 11/09/2024 Orders Only [facility]row Transplant [address] [facility] Floor [address] [place] [address] Suman Ulloa MD Multiple myeloma, remission status unspecified (HCC) (Primary Dx) 10/14/2024 11:30 AM CDT Infusion [facility] - Infusion [address] [address] Multiple myeloma, remission status unspecified (HCC) (Primary Dx) 10/14/2024 10:30 AM CDT Office Visit [facility] Medicine Bone Marrow Transplant [address] [place] [phone] Holly Mckeon, JARAD Multiple myeloma, remission status unspecified (HCC) (Primary Dx) 10/14/2024 9:30 AM CDT Clinical Support [facility] - Lab Collection [address] [place] [address] Multiple myeloma, remission status unspecified (HCC) from Last 3 Months Immunizations Immunization Administration Dates Next Due Influenza, Quadrivalent, Viktoria l Culture-based MDCK, Preservative Free, Antibiotic Free, Intramuscular 11/28/2022 Influenza, Quadrivalent, Hig h Dose, Preservative Free, Intrr 11/19/2020 Influenza, Trivalent, Adjuva nted, Intramuscular 01/24/2018 Influenza, Trivalent, High D ose, Split, Preservative Free, Intramuscular 12/09/2024,12/16/2018 Influenza, Trivalent, IM (MDV) 7,10/31/2014,11/24/2013,11/27 Influenza, Trivalent, [...] pur e alcohol) occ glass of wine Xiaoi Robert Utilities Answer Date Recorded In the past 12 months has th e electric, gas, oil, or water [employer] threatened to shut off services in your [...] often do you attend chur ch or yazidism services? Never 03/02/2023 Do you belong to [...] on file Legal Sex Female 10:03 AM HOUSEMAID Gender Identity Female 11/27/2023 9:47 AM CDT Sexual Orientation Not on file Last Filed Vital Signs Vital Sign Reading Time Taken Comments Blood Pressure 104/69 01/06/2025 1:50 PM HOUSEMAID Pulse 79 01/06/2025 1:50 PM HOUSEMAID Temperature 36.4 C (97.6 F) 01/06/2025 1:50 PM HOUSEMAID Respiratory Rate 20 01/06/2025 1:50 PM HOUSEMAID Oxygen Saturation 98% 01/06/2025 1:50 PM HOUSEMAID Inhaled Oxygen Concentration - - Weight 60.6 kg (133 lb 9.6 oz) 01/06/2025 1:50 P M HOUSEMAID Height 147.2 cm (4' 9.95) 01/06/2025 1:50 PM CS T Body Mass Index 27.97 01/06/2025 1:50 PM HOUSEMAID Plan of Treatment Health Maintenance Due Date Last Done Comments DTaP/Tdap/Td Vaccine (1 - Tdap) 1951 Hepatitis B Screening 08/28/1958 Well Visit 65+ 2006 Osteoporosis Screening-Bone Density Scan 10/15/2010 10/15/2008 Zoster Vaccine (2 of 2) 07/05/2021 05/10/2021 Depression Screening 02/27/2024 02/26/2023, 01/13/2023, 12/16/2022, Additional history exists Fall Risk Assessment 08/06/2024 08/07/2023 Covid-19 Vaccine (2024-03 6 season) 2024 01/25/2024, 11/09/2021, 06/13/2021, Additional history exists Pneumococcal vaccine 65+ Completed 018, 02/26/2015, 01/23/2012 Influenza Vaccine Completed 12/09/2024, , 11/28/2022, Additional history exists Medical Devices Implanted Type Area Refrigerator Glazier Device Identifier Shelf Expiration Date Model / Serial / Lot [employer] Inc/C R Bard [id number] Monofilament Soft Lightweight Low Profile Square - [id number] Implanted:Qty: 1 on 03/27/2022 by Shiva Galdamez MD at [facility] Mesh N/A: Abdomen [employer]/C R Bard [id number] 07/23/2026 [id number] / / [id number] [employer] [id number] Synergy Xd Monorail 2.5mm 16mm 144cm Delivery System 1 Access - [id number] - [id number] Implanted:Qty: 1 on 12/24/2020 by Juan Diego Etienne MD at [facility] Stent Left: Coronary Myrl Bandar 07/12/2022 [id number] / [id number] / [id number] Bilateral Total Knee Arthroplasty Knee [employer] Excela Low Porfile Power Port 8fr 1.6mm 1 Lumen [id number] - [id number] Implanted:Qty: 1 on 08/01/2022 at [facility] [employer] 03/26/2027 [id number] Procedures Procedure Name Priority Date/Time Associated Diagnosis Comments EGFR Routine 01/06/2025 1:18 PM HOUSEMAID Multiple myeloma not having achieved remission (HCC) DIFFERENTIAL AUTO Routine 01/06/2025 1:1 8 PM HOUSEMAID Multiple myeloma not having achieved remission (HCC) CBC WITH AUTO DIFFERENTIAL Routine 01/06/2025 1:18 PM HOUSEMAID Multiple myeloma not having achieved remission (HCC) COMPREHENSIVE METABOLIC PANEL Routine 01/06/2025 1:18 PM HOUSEMAID Multiple myeloma not having achieved remission (HCC) PHOSPHORUS Routine 01/06/2025 1:18 PM HOUSEMAID Multiple myeloma, remission status unspecified (HCC) EGFR Routine 12/30/2024 2:03 PM HOUSEMAID Multiple myeloma, remission status unspecified (HCC) DIFFERENTIAL AUTO Routine 12/30/2024 2:0 3 PM HOUSEMAID Multiple myeloma, remission status unspecified (HCC) CBC WITH AUTO DIFFERENTIAL Routine 12/30/2024 2:03 PM HOUSEMAID Multiple myeloma, remission status unspecified (HCC) COMPREHENSIVE METABOLIC PANEL Routine 12/30/2024 2:03 PM HOUSEMAID Multiple myeloma, remission status unspecified (HCC) IGA Routine 12/30/2024 2:03 PM HOUSEMAID Multiple myeloma, remission status unspecified (HCC) IGG Routine 12/30/2024 2:03 PM HOUSEMAID Multiple myeloma, remission status unspecified (HCC) IGM Routine 12/30/2024 2:03 PM HOUSEMAID Multiple myeloma, remission status unspecified (HCC) IMMUNOGLOBULIN FREE LIGHT CHAINS Routine 12/30/2024 2:03 PM HOUSEMAID Multiple myeloma, remission status unspecified (HCC) LACTATE DEHYDROGENASE Routine 12/30/2024 2:03 PM HOUSEMAID Multiple myeloma, remission status unspecified (HCC) PROTEIN ELECTROPHORESIS, WITH REFLEX, SERUM Routine 12/30/2024 2:03 PM HOUSEMAID Multiple myeloma, remission status unspecified (HCC) IMMUNOTYPING Routine 12/30/2024 2:03 PM HOUSEMAID Multiple myeloma, remission status unspecified (HCC) PET/CT FDG SKULL TO THIGH Schedule Routine, Read Routine (OP Routine) 12/16/2024 3:14 PM CDT Multiple myeloma, remission status unspecified (HCC) EGFR STAT 12/09/2024 12:00 PM CDT Multiple myeloma, remission status unspecified (HCC) DIFFERENTIAL AUTO Routine 12/09/2024 12: 00 PM CDT Multiple myeloma, remission status unspecified (HCC) PROTEIN ELECTROPHORESIS, WITH REFLEX, SERUM Routine 12/09/2024 12:00 PM CDT Multiple myeloma, remission status unspecified (HCC) IGG Routine 12/09/2024 12:00 PM CDT Multiple myeloma, remission status unspecified (HCC) IGM Routine 12/09/2024 12:00 PM CDT Multiple myeloma, remission status unspecified (HCC) IGA Routine 12/09/2024 12:00 PM CDT Multiple myeloma, remission status unspecified (HCC) IMMUNOGLOBULIN FREE LIGHT CHAINS Routine 12/09/2024 12:00 PM CDT Multiple myeloma, remission status unspecified (HCC) IMMUNOTYPING Routine 12/09/2024 12:00 PM CDT Multiple myeloma, remission status unspecified (HCC) LACTATE DEHYDROGENASE Routine 12/09/2024 12:00 PM CDT Multiple myeloma, remission status unspecified (HCC) CBC WITH AUTO DIFFERENTIAL Routine 12/09/2024 12:00 PM CDT Multiple myeloma, remission status unspecified (HCC) COMPREHENSIVE METABOLIC PANEL STAT 12/09/2024 12:00 PM CDT Multiple myeloma, remission status unspecified (HCC) DIFFERENTIAL AUTO Routine 11/11/2024 1:1 2 PM CDT Multiple myeloma, remission status unspecified (HCC) CBC WITH AUTO DIFFERENTIAL Routine 11/11/2024 1:12 PM CDT Multiple myeloma, remission status unspecified (HCC) EGFR STAT 11/11/2024 1:12 PM CDT Multiple myeloma, remission status unspecified (HCC) PROTEIN ELECTROPHORESIS, WITH REFLEX, SERUM Routine 11/11/2024 1:12 PM CDT Multiple myeloma, remission status unspecified (HCC) IGG Routine 11/11/2024 1:12 PM CDT Multiple myeloma, remission status unspecified (HCC) IGM Routine 11/11/2024 1:12 PM CDT Multiple myeloma, remission status unspecified (HCC) IGA Routine 11/11/2024 1:12 PM CDT Multiple myeloma, remission status unspecified (HCC) IMMUNOGLOBULIN FREE LIGHT CHAINS Routine 11/11/2024 1:12 PM CDT Multiple myeloma, remission status unspecified (HCC) IMMUNOTYPING Routine 11/11/2024 1:12 PM CDT Multiple myeloma, remission status unspecified (HCC) LACTATE DEHYDROGENASE Routine 11/11/2024 1:12 PM CDT Multiple myeloma, remission status unspecified (HCC) COMPREHENSIVE METABOLIC PANEL STAT 11/11/2024 1:12 PM CDT Multiple myeloma, remission status unspecified (HCC) DIFFERENTIAL AUTO Routine 10/14/2024 9:5 0 AM CDT Multiple myeloma, remission status unspecified (HCC) CBC WITH AUTO DIFFERENTIAL Routine 10/14/2024 9:50 AM CDT Multiple myeloma, remission status unspecified (HCC) PHOSPHORUS STAT 10/14/2024 9:50 AM CDT Multiple myeloma, remission status unspecified (HCC) EGFR STAT 10/14/2024 9:50 AM CDT Multiple myeloma, remission status unspecified (HCC) PROTEIN ELECTROPHORESIS, WITH REFLEX, SERUM Routine 10/14/2024 9:50 AM CDT Multiple myeloma, remission status unspecified (HCC) IGG Routine 10/14/2024 9:50 AM CDT Multiple myeloma, remission status unspecified (HCC) IGM Routine 10/14/2024 9:50 AM CDT Multiple myeloma, remission status unspecified (HCC) IGA Routine 10/14/2024 9:50 AM CDT Multiple myeloma, remission status unspecified (HCC) IMMUNOGLOBULIN FREE LIGHT CHAINS Routine 10/14/2024 9:50 AM CDT Multiple myeloma, remission status unspecified (HCC) IMMUNOTYPING Routine 10/14/2024 9:50 AM CDT Multiple myeloma, remission status unspecified (HCC) LACTATE DEHYDROGENASE Routine 10/14/2024 9:50 AM CDT Multiple myeloma, remission status unspecified (HCC) COMPREHENSIVE METABOLIC PANEL STAT 10/14/2024 9:50 AM CDT Multiple myeloma, remission status unspecified (HCC) from Last 3 Months Results * eGFR (01/06/2025 1:18 PM HOUSEMAID) Pathologist [facility] eGFR 61 >=60 mL/min/1. 73 m2 Comment: [...] last reviewed 2020. Blood 01/06/2025 1:18 PM HOUSEMAID 01/06/2025 1:44 PM HOUSEMAID Sumna Canales MD LAB BLOOD ORDER CRISTEL Final Result TA [facility] [place] [address] * (ABNORMAL) Differential, auto (01/06/2025 1:18 PM HOUSEMAID) Pathologist [facility] Neutrophil abs 5.05 1.50 - 6.50 K/cumm Comment:Testing performed by : [facility], [address] [place] [phone] Lymphocyte abs 0.47(L) 0.80 - 3.30 K/cumm [facility] Comment:Testing performed by : [facility], [address] [place] [phone] Monocyte abs 0.78 0.20 - 0.80 K/cumm [facility] Comment:Testing performed by : [facility], [address] [place], [place] [id number] Eosinophil abs 0.11 0.00 - 0.50 K/cumm [facility] Comment:Testing performed by : [facility], [address] [place], [place] [id number] Basophil abs 0.02 0.00 - 0.10 K/cumm [facility] Comment:Testing performed by : [facility], [address] [place] [phone] Neutrophil pct 78.7 % [facility] Comment: Interpretive Data Percent cell count reference ranges are not reported, since discordance with absolute values may lead to misinterpretation of CBC data. Current Interpretive Data was last revised on 2017. Testing performed by: [facility], [address] [place] [phone] Lymphocyte pct 7.2 % [facility] Comment: Interpretive Data Percent cell count reference ranges are not reported, since discordance with absolute values may lead to misinterpretation of CBC data. Current Interpretive Data was last revised on 2017. Testing performed by: [facility], [address] [place] [address] Monocyte pct 12.1 % [facility] Comment: Interpretive Data Percent cell count reference ranges are not reported, since discordance with absolute values may lead to misinterpretation of CBC data. Current Interpretive Data was last revised on 2017. Testing performed by: [facility], [address] [place] [phone] Eosinophil pct 1.8 % [facility] Comment: Interpretive Data Percent cell count reference ranges are not reported, since discordance with absolute values may lead to misinterpretation of CBC data. Current Interpretive Data was last revised on 2017. Testing performed by: [facility], [address] [place] [phone] Basophil pct 0.3 % CERENEDINA BJ Comment: Interpretive Data Percent cell count reference ranges are not reported, since discordance with absolute values may lead to misinterpretation of CBC data. Current Interpretive Data was last revised on 2017. Testing performed by: [facility], [address] [place] [phone] Blood 01/06/2025 1:18 PM HOUSEMAID 01/06/2025 1:41 PM HOUSEMAID us Suman Canales MD LAB BLOOD ORDER CRISTEL Final Result TA K[facility]DR[facility] [place] [address] * (ABNORMAL) CBC with auto differential (01/06/2025 1:18 PM HOUSEMAID) WBC 6.43 3.80 - 9.90 K/cumm Comment:Testing performed by : [facility], [address] [place] [phone] Hgb 11.4(L) 11.9 - 15.5 g/dL TA BJ Comment:Testing performed by : [facility], [address] [place] [phone] Hct 33.8(L) 35.6 - 45.5 % CERENEDINA BJ Comment:Testing performed by : [facility], [address] [place] [phone] Plt 210 150 - 400 K/cumm CERENEDINA BJ Comment:Testing performed by : [facility], [address] [place] [phone] MPV 9.1 6.8 - 10.4 fL CERENEDINA BJ Comment:Testing performed by : [facility], [address] [place] [phone] RBC 3.31(L) 3.90 - 5.20 M/cumm CERENEDINA KENDRICK Comment:Testing performed by : [facility], [address] [place], [place] [phone] MCV 102.0(H) 81.3 - 96.4 fL TA KENDRICK Comment:Testing performed by : [facility], [address] [place], [place] [phone] MCH 34.4(H) 27.1 - 33.3 pg TA KENDRICK Comment:Testing performed by : [facility], [address] [place], [place] [phone] MCHC 33.7 32.3 - 35.7 g/dL TA KENDRICK Comment:Testing performed by : [facility], [address] [place], [place] [phone] RDW CV 14.7 11.1 - 14.9 % TA KENDRICK Comment:Testing performed by : [facility], [address] [place], [place] [phone] NRBC abs 0.00 0.00 - 0.01 K/cumm TA [facility] Comment:Testing performed by : [facility], [address] [place], [place] [phone] Blood 01/06/2025 1:18 PM HOUSEMAID 01/06/2025 1:41 PM HOUSEMAID Suman Canales MD LAB BLOOD ORDER CRISTEL Final Result Performing Organization Address City/[facility]/ZIP Co de Phone Number [facility] [place] [address] * Phosphorus (01/06/2025 1:18 PM HOUSEMAID) Phosphorus, pl 3.0 2.3 - 4.5 mg/dL Blood 01/06/2025 1:18 PM HOUSEMAID 01/06/2025 1:44 PM HOUSEMAID Suman Canales MD LAB BLOOD ORDER CRISTEL Final Result Performing Organization Address City/[facility]/ZIP Co de Phone Number TA [facility] [place] [address] * Comprehensive metabolic panel (01/06/2025 1:18 PM HOUSEMAID) Sodium 141 135 - 145 mmol/L Potassium, pl 4.6 3.3 - 4.9 mmol/L [facility] Chloride 104 97 - 110 mmol/L [facility] CO2 28 22 - 32 mmol/L [facility] Anion gap 9 2 - 15 mmol/L [facility] BUN 17 6 - 25 mg/dL [facility] Creatinine 0.93 0.60 - 1.10 mg/dL [facility] Glucose 138 70 - 199 mg/dL [facility] Comment: Interpretive Data Fasting glucose >/= 126 [...] 2022. Calcium 9.6 8.5 - 10.3 mg/dL [facility] Bilirubin, total 0.3 0.1 - 1.2 mg/dL [facility] Protein, pl 6.6 6.5 - 8.5 g/dL [facility] Albumin 4.2 3.5 - 5.0 g/dL [facility] Alk phos 52 40 - 130 Units/L [facility] ALT 13 7 - 45 Units/L [facility] AST 25 10 - 45 Units/L [facility] Blood 01/06/2025 1:18 PM HOUSEMAID 01/06/2025 1:44 PM HOUSEMAID us Suman Canales MD LAB BLOOD ORDER CRISTEL Final Result TA [facility] [place] [address] * Immunotyping, serum with interpretation (12/30/2024 2:03 PM HOUSEMAID) Immunosubtraction Please see comment Comment: IGA LAMBDA PARAPROTEIN IGG KAPPA PARAPROTEIN Reviewed and signed by Tk Murcia MD, PhD 12/31/2024 Blood 12/30/2024 2:03 PM HOUSEMAID 12/30/2024 4:06 PM HOUSEMAID us Suman Canales MD LAB BLOOD ORDER CRISTEL Final Result TA [facility] [place] [address] * eGFR (12/30/2024 2:03 PM HOUSEMAID) eGFR 62 >=60 mL/min/1. 73 m2 Comment: [...] interpretive data was last reviewed 2020. Blood 12/30/2024 2:03 PM HOUSEMAID 12/30/2024 2:07 PM HOUSEMAID Suman Canales MD LAB BLOOD ORDER CRISTEL Final Result TA [facility] [place] [address] * (ABNORMAL) Differential, auto (12/30/2024 2:03 PM HOUSEMAID) Neutrophil abs 3.34 1.50 - 6.50 K/cumm Comment:Testing performed by : [facility], [address] [place], [place] [phone] Lymphocyte abs 0.52(L) 0.80 - 3.30 K/cumm CERNER [facility] Comment:Testing performed by : [facility], [address] [place] [phone] Monocyte abs 0.58 0.20 - 0.80 K/cumm CERNER BJ Comment:Testing performed by : [facility], [address] [place], [place] [phone] Eosinophil abs 0.08 0.00 - 0.50 K/cumm CERENEDINA [facility] Comment:Testing performed by : [facility], [address] [place] [phone] Basophil abs 0.02 0.00 - 0.10 K/cumm CERNER [facility] Comment:Testing performed by : [facility], [address] [place] [phone] Neutrophil pct 73.6 % CERNER [facility]J Comment: Interpretive Data Percent cell count reference ranges are not reported, since discordance with absolute values may lead to misinterpretation of CBC data. Current Interpretive Data was last revised on 2017. Testing performed by: [facility], [address] [place] [phone] Lymphocyte pct 11.4 % CERNER [facility]J Comment: Interpretive Data Percent cell count reference ranges are not reported, since discordance with absolute values may lead to misinterpretation of CBC data. Current Interpretive Data was last revised on 2017. Testing performed by: [facility], [address] [place] [phone] Monocyte pct 12.8 % CERNER [facility]J Comment: Interpretive Data Percent cell count reference ranges are not reported, since discordance with absolute values may lead to misinterpretation of CBC data. Current Interpretive Data was last revised on 2017. Testing performed by: [facility], [address] [place] [phone] Eosinophil pct 1.7 % TA KENDRICK Comment: Interpretive Data Percent cell count reference ranges are not reported, since discordance with absolute values may lead to misinterpretation of CBC data. Current Interpretive Data was last revised on 2017. Testing performed by: [facility], [address] [place] [phone] Basophil pct 0.5 % TA KENDRICK Comment: Interpretive Data Percent cell count reference ranges are not reported, since discordance with absolute values may lead to misinterpretation of CBC data. Current Interpretive Data was last revised on 2017. Testing performed by: [facility], [address] [place] [phone] Blood 12/30/2024 2:03 PM HOUSEMAID 12/30/2024 2:05 PM HOUSEMAID Suman Canales MD LAB BLOOD ORDER CRISTEL Final Result TA [facility] [place] [address] * (ABNORMAL) Immunoglobulin free light chains (12/30/2024 2:03 PM HOUSEMAID) [place]/Lambda ratio BJ 0.01(L) 0.26 - 1.65 Comment: Interpretive Data The Binding Site FreeLite assay procedure was used. Results from different manufacturers or methods may not be comparable. Serial testing should be performed using the same methods and instrumentation. Current Interpretive Data was last revised on 2023. [place] free light chain BJ 0.16(L) 0.33 - 1.94 mg/dL TA KENDRICK Comment: Interpretive Data The Binding Site FreeLite assay procedure was used. Results from different manufacturers or methods may not be comparable. Serial testing should be performed using the same methods and instrumentation. Current Interpretive Data was last revised on 2023. Lambda free light chain BJ 29.00(H) 0.57 - 2.63 mg/dL TA [facility] Comment: Interpretive Data The Binding Site FreeLite assay procedure was used. Results from different manufacturers or methods may not be comparable. Serial testing should be performed using the same methods and instrumentation. Current Interpretive Data was last revised on 2023. Blood 12/30/2024 2:03 PM HOUSEMAID 12/30/2024 4:06 PM HOUSEMAID us Suman Canales MD LAB BLOOD ORDER CRISTEL Final Result TA [facility] [place] [address] * (ABNORMAL) CBC with auto differential (12/30/2024 2:03 PM HOUSEMAID) WBC 4.54 3.80 - 9.90 K/cumm Comment:Testing performed by : [facility], [address] [place] [address] Hgb 11.8(L) 11.9 - 15.5 g/dL TA [facility] Comment:Testing performed by : [facility], [address] [place] [address] Hct 35.2(L) 35.6 - 45.5 % TA [facility] Comment:Testing performed by : [facility], [address] [place] [address] Plt 246 150 - 400 K/cumm TA [facility] Comment:Testing performed by : [facility], [address] [place] [address] MPV 8.4 6.8 - 10.4 fL TA [facility] Comment:Testing performed by : [facility], [address] [place] [address] RBC 3.51(L) 3.90 - 5.20 M/cumm TA [facility] Comment:Testing performed by : [facility], [address] [place] [address] MCV 100.3(H) 81.3 - 96.4 fL TA [facility] Comment:Testing performed by : [facility], [address] [place], [place] [phone] MCH 33.7(H) 27.1 - 33.3 pg TA [facility] Comment:Testing performed by : [facility], [address] [place], [place] [phone] MCHC 33.6 32.3 - 35.7 g/dL TA KENDRICK Comment:Testing performed by : [facility], [address] [place], [place] [phone] RDW CV 14.7 11.1 - 14.9 % TA [facility] Comment:Testing performed by : [facility], [address] [place], [place] [phone] NRBC abs 0.00 0.00 - 0.01 K/cumm TA [facility] Comment:Testing performed by : [facility], [address] [place], [place] [phone] Blood 12/30/2024 2:03 PM HOUSEMAID 12/30/2024 2:05 PM HOUSEMAID Suman Canales MD LAB BLOOD ORDER CRISTEL Final Result [facility] [place], [place] [id number] * (ABNORMAL) Protein electrophoresis with reflex, serum with interpretation (12/30/2024 2:03 PM HOUSEMAID) Protein, sr 6.2 6.2 - 8.2 g/dL Albumin 4.0 3.2 - 5.0 g/dL [facility] Alpha-1 globulin 0.2 0.2 - 0.4 g/dL [facility] Alpha-2 globulin 0.8 0.5 - 1.0 g/dL [facility] Beta-1 globulin 0.7(H) 0.3 - 0.6 g/dL [facility] Beta-2 globulin 0.2 0.2 - 0.6 g/dL [facility] Gamma globulin 0.3(L) 0.5 - 1.7 g/dL [facility] SPEP interp Please see comment [facility] Comment: Abnormal restricted peak in gamma region Quantity of restricted peak too low to quantify accurately Decreased gamma globulins Electrophoretic pattern appears similar to previous sample 12/10/2024 See immunotyping for further information Reviewed and signed by Tk Murcia MD, PhD 12/31/2024 Blood 12/30/2024 2:03 PM HOUSEMAID 12/30/2024 4:06 PM HOUSEMAID Suman Canales MD LAB BLOOD ORDER CRISTEL Final Result Performing Organization Address [facility] Co de Phone Number [facility] [place] [address] * Lactate dehydrogenase (LD) (12/30/2024 2:03 PM HOUSEMAID) Lactate dehydrogenase (LDH) 189 100 - 250 Units/L Blood 12/30/2024 2:03 PM HOUSEMAID 12/30/2024 2:07 PM HOUSEMAID Suman Canales MD LAB BLOOD ORDER CRISTEL Final Result Performing Organization Address [facility] de Phone Number [facility] [place] [address] * IgA (12/30/2024 2:03 PM HOUSEMAID) Pathologist [facility] Immunoglobulin A 346 70 - 400 mg/dL Blood 12/30/2024 2:03 PM HOUSEMAID 12/30/2024 2:39 PM HOUSEMAID Suman Canales MD LAB BLOOD ORDER CRISTEL Final Result Performing Organization Address City/[facility] Co de Phone Number [facility] [place] [address] * (ABNORMAL) IgM (12/30/2024 2:03 PM HOUSEMAID) [facility] Immunoglobulin M <25(L) 40 - 230 mg/dL Blood 12/30/2024 2:03 PM HOUSEMAID 12/30/2024 2:39 PM HOUSEMAID Suman Canales MD LAB BLOOD ORDER CRISTEL Final Result Performing Organization Address City/[facility]/ZIP Co de Phone Number [facility] [place] [address] * (ABNORMAL) IgG (12/30/2024 2:03 PM HOUSEMAID) [facility] Immunoglobulin G <300(L) 700 - 1,600 mg/dL Blood 12/30/2024 2:03 PM HOUSEMAID 12/30/2024 2:39 PM HOUSEMAID Suman Canales MD LAB BLOOD ORDER CRISTEL Final Result Performing Organization Address City/[facility] de Phone Number [facility] [place] [address] * Comprehensive metabolic panel (12/30/2024 2:03 PM HOUSEMAID) [facility] Sodium 140 135 - 145 mmol/L Potassium, pl 4.7 3.3 - 4.9 mmol/L [facility] Chloride 104 97 - 110 mmol/L [facility] CO2 28 22 - 32 mmol/L [facility] Anion gap 8 2 - 15 mmol/L [facility] BUN 12 6 - 25 mg/dL [facility] Creatinine 0.92 0.60 - 1.10 mg/dL [facility] Glucose 105 70 - 199 mg/dL [facility] Comment: Interpretive Data Fasting glucose >/= 126 [...] interpretive data was last revised 2022. Calcium 9.5 8.5 - 10.3 mg/dL CERNER [facility] Bilirubin, total 0.2 0.1 - 1.2 mg/dL [facility] Protein, pl 6.5 6.5 - 8.5 g/dL CERNER [facility] Albumin 4.1 3.5 - 5.0 g/dL CERNER [facility] Alk phos 43 40 - 130 Units/L C[facility]ER [facility] ALT 10 7 - 45 Units/L CERNER [facility] AST 22 10 - 45 Units/L [facility] Blood 12/30/2024 2:03 PM HOUSEMAID 12/30/2024 2:07 PM HOUSEMAID Suman Canales MD LAB BLOOD ORDER CRISTEL Final Result [facility] [place] [address] * PET/CT FDG Skull to Thigh (12/16/2024 3:14 PM CDT) Anatomical Region Laterality Modality N/A Positron Emissio n Tomography (PET) 12/16/2024 3:57 PM CDT Impressions 12/16/2024 4:09 PM CDT Findings of recurrent disease given numerous osseous lesions with an extramedullary hypermetabolic soft tissue component. Dictated by: Chanel Diaz M.D. The radiology attending physician has personally reviewed this study, and had reviewed and/or edited this written report and agrees with it. Electronically signed by: Livia Roque M.D. Narrative 12/16/2024 4:09 PM CDT EXAMINATION: TUMOR FDG-PET/CT IMAGING DATE OF STUDY: 12/16/2024 SCANNER: [facility] N mCT RADIOPHARMACEUTICAL: 16.77 mCi F-18 Fluorodeoxyglucose (FDG) i.v. Injection site: Port HISTORY: An 82-year-old woman with multiple myeloma, diagnosed in June 2022, was on daratumumab/dexamethasone. Also, a history of right breast cancer diagnosed in 2000. The study is requested for treatment monitoring during therapy. Subsequent treatment strategy. TECHNIQUE: The patient's fasting blood glucose level, measured by glucometer before injection of FDG, was 81 mg/dL. After intravenous administration of FDG, noncontrast CT images were obtained for attenuation correction and for fusion with emission PET images to allow for anatomical localization of PET findings. Emission PET images were then obtained. The study was interpreted on the [employer] workstation. The mean liver SUV (reported for fuel quality tech purposes) is 2.8. The total scanned area was skull vertex to knees. Images of the body were obtained starting 57 minutes after injection of tracer. All reported SUVs are maximum SUVs, unless otherwise specified. COMPARISON: Multiple prior FDG PET studies, most recently 07/18/2023. DESCRIPTORS OF LESION FDG AVIDITY: Minimal: <= blood pool Mild: > blood pool and <= liver Moderate: > liver and <= 2x SUVmax liver Moderate to marked: >2x SUVmax liver and <= 3x SUVmax liver Marked: > 3x SUVmax liver FINDINGS: Interval development of multiple markedly hypermetabolic osseous lesions for reference: * T2 vertebral body (image 89), SUV of 9.6 * T6 vertebral body (image 109), SUV of 7 * T10 vertebral body (136), SUV of 6.8. * Right hemisacrum (image 210) SUV of 7.6 * left hemisacrum ( image 203) SUV 5.6 * right iliac bone (207) SUV of 6.6. Subpleural or soft tissue nodule with markedly FDG activity (114) 8.6. The T2 vertebral body lesion is not associated with a substantially hypermetabolic subpleural soft tissue nodule (image 90) with an SUV of 8.6. Soft tissue thickening posterior to the left sacrum (image 207), SUV of 6.1. Additional retrocrural (image 146) SUV of 3.4 and left paraspinal (image 164) SUV of 6.6, soft tissue nodules with marked moderate hypermetabolism. Increased esophageal activity is likely related to esophagitis. The most FDG-avid lesion is the T2 vertebral body, which has a maximum SUV of 9.6. Additional CT findings: Postsurgical changes of right axillary lymph node dissection. The right internal jugular approach port catheter tip terminates at the superior cavoatrial junction. Atherosclerotic calcification of the abdominal aorta. Bilateral lens replacement. Chronic old rib fractures. Bibasilar atelectasis. Bilateral knee artery opacities. Small hiatal hernia. Surgical changes of rectosigmoid resection. Procedure Note Livia Roque MD - 12/16/2024 EXAMINATION: TUMOR FDG-PET/CT IMAGING DATE OF STUDY: 12/16/2024 SCANNER: [facility] Beauty Noted RADIOPHARMACEUTICAL: 16.77 mCi F-18 Fluorodeoxyglucose (FDG) i.v. Injection site: Port HISTORY: An 82-year-old woman with multiple myeloma, diagnosed in June 2022, was on daratumumab/dexamethasone. Also, a history of right breast cancer diagnosed in 2000. The study is requested for treatment monitoring during therapy. Subsequent treatment strategy. TECHNIQUE: The patient's fasting blood glucose level, measured by glucometer before injection of FDG, was 81 mg/dL. After intravenous administration of FDG, noncontrast CT images were obtained for attenuation correction and for fusion with emission PET images to allow for anatomical localization of PET findings. Emission PET images were then obtained. The study was interpreted on the OMsignal workstation. The mean liver SUV (reported for fuel quality tech purposes) is 2.8. The total scanned area was skull vertex to knees. Images of the body were obtained starting 57 minutes after injection of tracer. All reported SUVs are maximum SUVs, unless otherwise specified. COMPARISON: Multiple prior FDG PET studies, most recently 07/18/2023. DESCRIPTORS OF LESION FDG AVIDITY: Minimal: <= blood pool Mild: > blood pool and <= liver Moderate: > liver and <= 2x SUVmax liver Moderate to marked: >2x SUVmax liver and <= 3x SUVmax liver Marked: > 3x SUVmax liver FINDINGS: Interval development of multiple markedly hypermetabolic osseous lesions for reference: * T2 vertebral body (image 89), SUV of 9.6 * T6 vertebral body (image 109), SUV of 7 * T10 vertebral body (136), SUV of 6.8. * Right hemisacrum (image 210) SUV of 7.6 * left hemisacrum ( image 203) SUV 5.6 * right iliac bone (207) SUV of 6.6. Subpleural or soft tissue nodule with markedly FDG activity (114) 8.6. The T2 vertebral body lesion is not associated with a substantially hypermetabolic subpleural soft tissue nodule (image 90) with an SUV of 8.6. Soft tissue thickening posterior to the left sacrum (image 207), SUV of 6.1. Additional retrocrural (image 146) SUV of 3.4 and left paraspinal (image 164) SUV of 6.6, soft tissue nodules with marked moderate hypermetabolism. Increased esophageal activity is likely related to esophagitis. The most FDG-avid lesion is the T2 vertebral body, which has a maximum SUV of 9.6. Additional CT findings: Postsurgical changes of right axillary lymph node dissection. The right internal jugular approach port catheter tip terminates at the superior cavoatrial junction. Atherosclerotic calcification of the abdominal aorta. Bilateral lens replacement. Chronic old rib fractures. Bibasilar atelectasis. Bilateral knee artery opacities. Small hiatal hernia. Surgical changes of rectosigmoid resection. IMPRESSION: Findings of recurrent disease given numerous osseous lesions with an extramedullary hypermetabolic soft tissue component. Dictated by: Chanel Diaz M.D. The radiology attending physician has personally reviewed this study, and had reviewed and/or edited this written report and agrees with it. Electronically signed by: Livia Roque M.D. Suman Canales MD IMG PET PROCEDU RES Final Result * Immunotyping, serum with interpretation (12/09/2024 12:00 PM CDT) Immunosubtraction Please see comment Comment: SMALL IGG KAPPA PARAPROTEIN IGA LAMBDA PARAPROTEIN Reviewed and signed by Tk Murcia MD, PhD 12/10/2024 Blood 12/09/2024 12:0 0 PM CDT 12/09/2024 2:31 PM CDT us Holly Mckeon [facility] LAB BLOOD ORDERABLES Final Result [facility] [place] [address] * eGFR (12/09/2024 12:00 PM CDT) eGFR 64 >=60 mL/min/1. 73 m2 Comment: Interpretive Data [...] interpretive data was last reviewed 2020. Blood 12/09/2024 12:0 0 PM CDT 12/09/2024 12:16 PM CDT Holly Mckeon DNP LAB BLOOD ORDERABLES Final Result TA KENDRICK [facility] [place] [address] * (ABNORMAL) Differential, auto (12/09/2024 12:00 PM CDT) Pathologist [facility] Neutrophil abs 2.54 1.50 - 6.50 K/cumm Comment:Testing performed by : [facility], [address] [place] [phone] Lymphocyte abs 0.51(L) 0.80 - 3.30 K/cumm [facility] Comment:Testing performed by : [facility], [address] [place] [phone] Monocyte abs 0.61 0.20 - 0.80 K/cumm [facility] Comment:Testing performed by : [facility], [address] [place] [phone] Eosinophil abs 0.09 0.00 - 0.50 K/cumm [facility] Comment:Testing performed by : [facility], [address] [place] [phone] Basophil abs 0.02 0.00 - 0.10 K/cumm [facility] Comment:Testing performed by : [facility], [address] [place] [phone] Neutrophil pct 67.6 % [facility] Comment: Interpretive Data Percent cell count reference ranges are not reported, since discordance with absolute values may lead to misinterpretation of CBC data. Current Interpretive Data was last revised on 2017. Testing performed by: [facility], [address] [place] [phone] Lymphocyte pct 13.5 % [facility] Comment: Interpretive Data Percent cell count reference ranges are not reported, since discordance with absolute values may lead to misinterpretation of CBC data. Current Interpretive Data was last revised on 2017. Testing performed by: [facility], [address] [place] [phone] Monocyte pct 16.1 % [facility] Comment: Interpretive Data Percent cell count reference ranges are not reported, since discordance with absolute values may lead to misinterpretation of CBC data. Current Interpretive Data was last revised on 2017. Testing performed by: [facility], [address] [place] [phone] Eosinophil pct 2.3 % [facility] Comment: Interpretive Data Percent cell count reference ranges are not reported, since discordance with absolute values may lead to misinterpretation of CBC data. Current Interpretive Data was last revised on 2017. Testing performed by: [facility], [address] [place] [phone] Basophil pct 0.6 % [facility] Comment: Interpretive Data Percent cell count reference ranges are not reported, since discordance with absolute values may lead to misinterpretation of CBC data. Current Interpretive Data was last revised on 2017. Testing performed by: [facility], [address] [place] [phone] Blood 12/09/2024 12:0 0 PM CDT 12/09/2024 12:10 PM CDT Holly Mckeon [facility] LAB BLOOD ORDERABLES Final Result Performing Organization Address [facility] de Phone Number [facility] [place] [address] * (ABNORMAL) Immunoglobulin free light chains (12/09/2024 12:00 PM CDT) [place]/Lambda ratio BJ 0.01(L) 0.26 - 1.65 Comment: Interpretive Data The Binding Site FreeLite assay procedure was used. Results from different manufacturers or methods may not be comparable. Serial testing should be performed using the same methods and instrumentation. Current Interpretive Data was last revised on 2023. [place] free light chain BJ 0.18(L) 0.33 - 1.94 mg/dL [facility] Comment: Interpretive Data The Binding Site FreeLite assay procedure was used. Results from different manufacturers or methods may not be comparable. Serial testing should be performed using the same methods and instrumentation. Current Interpretive Data was last revised on 2023. Lambda free light chain BJ 14.88(H) 0.57 - 2.63 mg/dL TA [facility] Comment: Interpretive Data The Binding Site FreeLite assay procedure was used. Results from different manufacturers or methods may not be comparable. Serial testing should be performed using the same methods and instrumentation. Current Interpretive Data was last revised on 2023. Blood 12/09/2024 12:0 0 PM CDT 12/09/2024 2:31 PM CDT Holly Mckeon [facility] LAB BLOOD ORDERABLES Final Result TA KENDRICK [facility] [place] [address] * (ABNORMAL) CBC with auto differential (12/09/2024 12:00 PM CDT) WBC 3.77(L) 3.80 - 9.90 K/cumm Comment:Testing performed by : [facility], [address] [place] [address] Hgb 11.5(L) 11.9 - 15.5 g/dL [facility] Comment:Testing performed by : [facility], [address] [place] [address] Hct 34.3(L) 35.6 - 45.5 % TA KENDRICK Comment:Testing performed by : [facility], [address] [place] [address] Plt 187 150 - 400 K/cumm [facility] KENDRICK Comment:Testing performed by : [facility], [address] [place] [address] MPV 8.7 6.8 - 10.4 fL [facility]ERENEDINA [facility] Comment:Testing performed by : [facility], [address] [place] [address] RBC 3.42(L) 3.90 - 5.20 M/cumm [facility] KENDRICK Comment:Testing performed by : [facility], [address] [place] [address] MCV 100.4(H) 81.3 - 96.4 fL [facility]INA [facility] Comment:Testing performed by : [facility], [address] [place] [address] MCH 33.7(H) 27.1 - 33.3 pg [facility]ERENEDINA [facility] Comment:Testing performed by : [facility], [address] [place] [address] MCHC 33.5 32.3 - 35.7 g/dL [facility] Comment:Testing performed by : [facility], [address] [place] [address] RDW CV 15.7(H) 11.1 - 14.9 % [facility] Comment:Testing performed by : [facility], [facility] [place] [address] NRBC abs 0.00 0.00 - 0.01 K/cumm [facility] Comment:Testing performed by : [facility], [facility] [place] [phone] Blood 12/09/2024 12:0 0 PM CDT 12/09/2024 12:10 PM CDT Holly Mckeon DNP LAB BLOOD ORDERABLES Final Result [facility] [place] [address] * (ABNORMAL) Protein electrophoresis with reflex, serum with interpretation (12/09/2024 12:00 PM CDT) Protein, sr 6.2 6.2 - 8.2 g/dL Albumin 4.2 3.2 - 5.0 g/dL [facility] Alpha-1 globulin 0.2 0.2 - 0.4 g/dL [facility] Alpha-2 globulin 0.8 0.5 - 1.0 g/dL [facility] Beta-1 globulin 0.6 0.3 - 0.6 g/dL [facility] Beta-2 globulin 0.2 0.2 - 0.6 g/dL [facility] Gamma globulin 0.2(L) 0.5 - 1.7 g/dL [facility] SPEP interp Please see comment [facility] Comment: Abnormal restricted peak in gamma region Quantity of restricted peak too low to quantify accurately Decreased gamma globulins Electrophoretic pattern appears similar to previous sample 11/12/2024 See immunotyping for further information Reviewed and signed by Tk Murcia MD, PhD 12/10/2024 Blood 12/09/2024 12:0 0 PM CDT 12/09/2024 2:31 PM CDT Holly Mckeon [facility] LAB BLOOD ORDERABLES Final Result Performing Organization Address [facility] Co de Phone Number [facility] [place] [address] * Lactate dehydrogenase (LD) (12/09/2024 12:00 PM CDT) Lactate dehydrogenase (LDH) 186 100 - 250 Units/L Blood 12/09/2024 12:0 0 PM CDT 12/09/2024 12:16 PM CDT Holly Mckeon [facility] LAB BLOOD ORDERABLES Final Result Performing Organization Address [facility] [place] [address] * IgA (12/09/2024 12:00 PM CDT) Pathologist [facility] Immunoglobulin A 282 70 - 400 mg/dL Blood 12/09/2024 12:0 0 PM CDT 12/09/2024 12:50 PM CDT Holly Mckeon [facility] LAB BLOOD ORDERABLES Final Result Performing Organization Address [facility] de Phone Number [facility] [place] [address] * (ABNORMAL) IgM (12/09/2024 12:00 PM CDT) Immunoglobulin M <25(L) 40 - 230 mg/dL Blood 12/09/2024 12:0 0 PM CDT 12/09/2024 12:50 PM CDT Holly Mckeon [facility] LAB BLOOD ORDERABLES Final Result Performing Organization Address City/[facility] Co de Phone Number [facility] [place] [address] * (ABNORMAL) IgG (12/09/2024 12:00 PM CDT) Immunoglobulin G 331(L) 700 - 1,600 mg/dL Blood 12/09/2024 12:0 0 PM CDT 12/09/2024 12:50 PM CDT Holly Mckeon [facility] LAB BLOOD ORDERABLES Final Result [facility] [place] [address] * (ABNORMAL) Comprehensive metabolic panel (12/09/2024 12:00 PM CDT) Pathologist [facility] Sodium 144 135 - 145 mmol/L Potassium, pl 4.0 3.3 - 4.9 mmol/L [facility] Chloride 107 97 - 110 mmol/L [facility] CO2 26 22 - 32 mmol/L [facility] Anion gap 11 2 - 15 mmol/L [facility] BUN 17 6 - 25 mg/dL [facility] Creatinine 0.89 0.60 - 1.10 mg/dL [facility] Glucose 103 70 - 199 mg/dL [facility] Comment: Interpretive Data Fasting glucose >/= 126 [...] interpretive data was last revised 2022. Calcium 10.0 8.5 - 10.3 mg/dL [facility] Bilirubin, total 0.2 0.1 - 1.2 mg/dL [facility] Protein, pl 6.3(L) 6.5 - 8.5 g/dL [facility] Albumin 4.2 3.5 - 5.0 g/dL [facility] Alk phos 44 40 - 130 Units/L [facility] ALT 10 7 - 45 Units/L [facility] AST 20 10 - 45 Units/L [facility] Blood 12/09/2024 12:0 0 PM CDT 12/09/2024 12:16 PM CDT Holly Mckeon DNP LAB BLOOD ORDERABLES Final Result [facility] [place] [address] * (ABNORMAL) Differential, auto (11/11/2024 1:12 PM CDT) Neutrophil abs 4.03 1.50 - 6.50 K/cumm Comment:Testing performed by : [facility], [address] [place], [place] [id number] Lymphocyte abs 0.52(L) 0.80 - 3.30 K/cumm [facility] Comment:Testing performed by : [facility], [address] [place] [phone] Monocyte abs 0.71 0.20 - 0.80 K/cumm [facility] Comment:Testing performed by : [facility], [address] [place] [address] Eosinophil abs 0.09 0.00 - 0.50 K/cumm [facility] Comment:Testing performed by : [facility], [address] [place] [address] Basophil abs 0.03 0.00 - 0.10 K/cumm [facility] Comment:Testing performed by : [facility], [address] [place] [address] Neutrophil pct 75.2 % [facility] Comment: Interpretive Data Percent cell count reference ranges are not reported, since discordance with absolute values may lead to misinterpretation of CBC data. Current Interpretive Data was last revised on 2017. Testing performed by: [facility], [address] [place] [address] Lymphocyte pct 9.6 % [facility] Comment: Interpretive Data Percent cell count reference ranges are not reported, since discordance with absolute values may lead to misinterpretation of CBC data. Current Interpretive Data was last revised on 2017. Testing performed by: [facility], [address] [place] [phone] Monocyte pct 13.2 % TA KENDRICK Comment: Interpretive Data Percent cell count reference ranges are not reported, since discordance with absolute values may lead to misinterpretation of CBC data. Current Interpretive Data was last revised on 2017. Testing performed by: [facility], [address] [place] [phone] Eosinophil pct 1.6 % TA KENDRICK Comment: Interpretive Data Percent cell count reference ranges are not reported, since discordance with absolute values may lead to misinterpretation of CBC data. Current Interpretive Data was last revised on 2017. Testing performed by: [facility], [address] [place] [phone] Basophil pct 0.5 % TA KENDRICK Comment: Interpretive Data Percent cell count reference ranges are not reported, since discordance with absolute values may lead to misinterpretation of CBC data. Current Interpretive Data was last revised on 2017. Testing performed by: [facility], [address] [place] [phone] Blood 11/11/2024 1:12 PM CDT 11/11/2024 1:14 PM CDT Suman Canales MD LAB BLOOD ORDER CRISTEL Final Result [facility] [place] [address] * (ABNORMAL) CBC with auto differential (11/11/2024 1:12 PM CDT) WBC 5.36 3.80 - 9.90 K/cumm Comment:Testing performed by : [facility], [address] [place] [phone] Hgb 11.4(L) 11.9 - 15.5 g/dL [facility] Comment:Testing performed by : [facility], [address] [place], [place] [phone] Hct 33.4(L) 35.6 - 45.5 % C[facility]ER [facility] Comment:Testing performed by : [facility], [address] [place], [place] [phone] Plt 203 150 - 400 K/cumm [facility] Comment:Testing performed by : [facility], [address] [place], [place] [phone] MPV 8.1 6.8 - 10.4 fL [facility] Comment:Testing performed by : [facility], [address] [place], [place] [phone] RBC 3.39(L) 3.90 - 5.20 M/cumm [facility] Comment:Testing performed by : [facility], [address] [place], [place] [phone] MCV 98.5(H) 81.3 - 96.4 fL [facility] Comment:Testing performed by : [facility], [address] [place], [place] [phone] MCH 33.7(H) 27.1 - 33.3 pg [facility]ER [facility] Comment:Testing performed by : [facility], [address] [place] [address] MCHC 34.2 32.3 - 35.7 g/dL [facility] Comment:Testing performed by : [facility], [address] [place] [address] RDW CV 14.6 11.1 - 14.9 % [facility] Comment:Testing performed by : [facility], [address] [place], [place] [phone] NRBC abs 0.00 0.00 - 0.01 K/cumm [facility] Comment:Testing performed by : [facility], [address] [place] [address] Blood 11/11/2024 1:12 PM CDT 11/11/2024 1:14 PM CDT Suman Canales MD LAB BLOOD ORDER CRISTEL Final Result [facility] [place] [address] * Immunotyping, serum with interpretation (11/11/2024 1:12 PM CDT) Immunosubtraction Please see comment Comment: IGG KAPPA PARAPROTEIN IGA LAMBDA PARAPROTEIN Reviewed and signed by Tk Murcia MD, PhD 11/12/2024 Blood 11/11/2024 1:12 PM CDT 11/11/2024 2:21 PM CDT Suman Canales MD LAB BLOOD ORDER CRISTEL Final Result Performing Organization Address City/[facility] Co de Phone Number [facility] [place] [address] * eGFR (11/11/2024 1:12 PM CDT) eGFR 73 >=60 mL/min/1. 73 m2 Comment: Interpretive Data [...] interpretive data was last reviewed 2020. Blood 11/11/2024 1:12 PM CDT 11/11/2024 1:16 PM CDT Suman Canales MD LAB BLOOD ORDER CRISTEL Final Result [facility] [place] [address] * (ABNORMAL) Immunoglobulin free light chains (11/11/2024 1:12 PM CDT) [place]/Lambda ratio BJ 0.02(L) 0.26 - 1.65 Comment: Interpretive Data The Binding Site FreeLite assay procedure was used. Results from different manufacturers or methods may not be comparable. Serial testing should be performed using the same methods and instrumentation. Current Interpretive Data was last revised on 2023. [place] free light chain BJ 0.20(L) 0.33 - 1.94 mg/dL [facility] Comment: Interpretive Data The Binding Site FreeLite assay procedure was used. Results from different manufacturers or methods may not be comparable. Serial testing should be performed using the same methods and instrumentation. Current Interpretive Data was last revised on 2023. Lambda free light chain BJ 8.30(H) 0.57 - 2.63 mg/dL [facility] Comment: Interpretive Data The Binding Site FreeLite assay procedure was used. Results from different manufacturers or methods may not be comparable. Serial testing should be performed using the same methods and instrumentation. Current Interpretive Data was last revised on 2023. Blood 11/11/2024 1:12 PM CDT 11/11/2024 2:21 PM CDT Suman Canales MD LAB BLOOD ORDER CRISTEL Final Result [facility] [place] [address] * (ABNORMAL) Protein electrophoresis with reflex, serum with interpretation (11/11/2024 1:12 PM CDT) Pathologist [facility] Protein, sr 6.0(L) 6.2 - 8.2 g/dL Albumin 4.1 3.2 - 5.0 g/dL [facility] Alpha-1 globulin 0.2 0.2 - 0.4 g/dL [facility] Alpha-2 globulin 0.8 0.5 - 1.0 g/dL [facility] Beta-1 globulin 0.5 0.3 - 0.6 g/dL [facility] Beta-2 globulin 0.2 0.2 - 0.6 g/dL [facility] Gamma globulin 0.3(L) 0.5 - 1.7 g/dL [facility] SPEP interp Please see comment [facility] Comment: Abnormal restricted peak in gamma region Quantity of restricted peak too low to quantify accurately Decreased gamma globulins Electrophoretic pattern appears similar to previous sample 10/15/2024 See immunotyping for further information Reviewed and signed by Tk Murcia MD, PhD 11/12/2024 Blood 11/11/2024 1:12 PM CDT 11/11/2024 2:21 PM CDT Suman Canales MD LAB BLOOD ORDER CRISTEL Final Result Performing Organization Address City/[facility] Co de Phone Number [facility] [place] [address] * Lactate dehydrogenase (LD) (11/11/2024 1:12 PM CDT) [facility] Lactate dehydrogenase (LDH) 211 100 - 250 Units/L Blood 11/11/2024 1:12 PM CDT 11/11/2024 1:16 PM CDT Suman Canales MD LAB BLOOD ORDER CRISTEL Final Result Performing Organization Address City/[facility]/ZIP Co de Phone Number [facility] [place] [address] * IgA (11/11/2024 1:12 PM CDT) [facility] Immunoglobulin A 137 70 - 400 mg/dL Blood 11/11/2024 1:12 PM CDT 11/11/2024 1:40 PM CDT Suman Canales MD LAB BLOOD ORDER CRISTEL Final Result Performing Organization Address City/[facility] Co de Phone Number [facility] [place] [address] * (ABNORMAL) IgM (11/11/2024 1:12 PM CDT) [facility] Immunoglobulin M <25(L) 40 - 230 mg/dL Blood 11/11/2024 1:12 PM CDT 11/11/2024 1:40 PM CDT Suman Canales MD LAB BLOOD ORDER CRISTEL Final Result Performing Organization Address City/[facility] [place]/[facility] Co de Phone Number [facility] [place] [address] * (ABNORMAL) IgG (11/11/2024 1:12 PM CDT) [facility] Immunoglobulin G <300(L) 700 - 1,600 mg/dL Blood 11/11/2024 1:12 PM CDT 11/11/2024 1:40 PM CDT Suman Canales MD LAB BLOOD ORDER CRISTEL Final Result Performing Organization Address City/[facility] [place]/[facility] Co de Phone Number [facility] [place] [address] * (ABNORMAL) Comprehensive metabolic panel (11/11/2024 1:12 PM CDT) [facility] Sodium 142 135 - 145 mmol/L Potassium, pl 4.7 3.3 - 4.9 mmol/L [facility] Chloride 106 97 - 110 mmol/L [facility] CO2 26 22 - 32 mmol/L [facility] Anion gap 10 2 - 15 mmol/L [facility] BUN 13 6 - 25 mg/dL [facility] Creatinine 0.80 0.60 - 1.10 mg/dL [facility] Glucose 99 70 - 199 mg/dL [facility] Comment: Interpretive Data Fasting glucose >/= 126 [...] interpretive data was last revised 2022. Calcium 8.9 8.5 - 10.3 mg/dL [facility] Bilirubin, total 0.2 0.1 - 1.2 mg/dL [facility] Protein, pl 6.2(L) 6.5 - 8.5 g/dL [facility] Albumin 4.2 3.5 - 5.0 g/dL [facility] Alk phos 55 40 - 130 Units/L [facility] ALT 9 7 - 45 Units/L [facility] AST 19 10 - 45 Units/L [facility] Blood 11/11/2024 1:12 PM CDT 11/11/2024 1:16 PM CDT us Suman Canales MD LAB BLOOD ORDER CRISTEL Final Result [facility] Department [place] [address] * (ABNORMAL) Differential, auto (10/14/2024 9:50 AM CDT) Pathologist [facility] Neutrophil abs 3.86 1.50 - 6.50 K/cumm Comment:Testing performed by : [facility], [address] [place] [address] Lymphocyte abs 0.65(L) 0.80 - 3.30 K/cumm [facility] Comment:Testing performed by : [facility], [address] [place], [place] [id number] Monocyte abs 0.73 0.20 - 0.80 K/cumm [facility] Comment:Testing performed by : [facility], [address] [place], [place] [id number] Eosinophil abs 0.13 0.00 - 0.50 K/cumm [facility] Comment:Testing performed by : [facility], [address] [place], [place] [id number] Basophil abs 0.02 0.00 - 0.10 K/cumm [facility] Comment:Testing performed by : [facility], [address] [place], [place] [id number] Neutrophil pct 71.6 % [facility] Comment: Interpretive Data Percent cell count reference ranges are not reported, since discordance with absolute values may lead to misinterpretation of CBC data. Current Interpretive Data was last revised on 2017. Testing performed by: [facility], [address] [place] [address] Lymphocyte pct 12.0 % [facility] Comment: Interpretive Data Percent cell count reference ranges are not reported, since discordance with absolute values may lead to misinterpretation of CBC data. Current Interpretive Data was last revised on 2017. Testing performed by: [facility], [address] [place] [phone] Monocyte pct 13.6 % [facility] Comment: Interpretive Data Percent cell count reference ranges are not reported, since discordance with absolute values may lead to misinterpretation of CBC data. Current Interpretive Data was last revised on 2017. Testing performed by: [facility], [address] [place], [place] [id number] Eosinophil pct 2.5 % [facility] Comment: Interpretive Data Percent cell count reference ranges are not reported, since discordance with absolute values may lead to misinterpretation of CBC data. Current Interpretive Data was last revised on 2017. Testing performed by: [facility], [address] [place] [phone] Basophil pct 0.4 % TA KENDRICK Comment: Interpretive Data Percent cell count reference ranges are not reported, since discordance with absolute values may lead to misinterpretation of CBC data. Current Interpretive Data was last revised on 2017. Testing performed by: [facility], [address] [place] [address] Blood 10/14/2024 9:50 AM CDT 10/14/2024 9:58 AM CDT Suman Canales MD LAB BLOOD ORDER CRISTEL Final Result TA KENDRICK [facility] [place] [address] * (ABNORMAL) CBC with auto differential (10/14/2024 9:50 AM CDT) WBC 5.39 3.80 - 9.90 K/cumm Comment:Testing performed by : [facility], [address] [place] [address] Hgb 12.2 11.9 - 15.5 g/dL TA KENDRICK Comment:Testing performed by : [facility], [address] [place] [address] Hct 35.7 35.6 - 45.5 % TA KENDRICK Comment:Testing performed by : [facility], [address] [place] [address] Plt 206 150 - 400 K/cumm TA KENDRICK Comment:Testing performed by : [facility], [address] [place] [address] MPV 8.7 6.8 - 10.4 fL TA KENDRICK Comment:Testing performed by : [facility], [address] [place] [address] RBC 3.64(L) 3.90 - 5.20 M/cumm [facility] Comment:Testing performed by : [facility], [address] [place] [address] MCV 98.1(H) 81.3 - 96.4 fL [facility]ERENEDINA [facility] Comment:Testing performed by : [facility], [address] [place] [address] MCH 33.4(H) 27.1 - 33.3 pg [facility] Comment:Testing performed by : [facility], [address] [place] [address] MCHC 34.1 32.3 - 35.7 g/dL [facility] Comment:Testing performed by : [facility], [address] [place] [address] RDW CV 13.6 11.1 - 14.9 % [facility] Comment:Testing performed by : [facility], [address] [place] [address] NRBC abs 0.00 0.00 - 0.01 K/cumm [facility] Comment:Testing performed by : [facility], [address] [place] [address] Blood 10/14/2024 9:50 AM CDT 10/14/2024 9:58 AM CDT Suman Canales MD LAB BLOOD ORDER CRISTEL Final Result [facility] [place] [address] * Immunotyping, serum with interpretation (10/14/2024 9:50 AM CDT) Immunosubtraction Please see comment Comment: SMALL IGG KAPPA PARAPROTEIN Reviewed and signed by Tk Murcia MD, PhD 10/15/2024 Blood 10/14/2024 9:50 AM CDT 10/14/2024 12:34 PM CDT Suman Canales MD LAB BLOOD ORDER CRISTEL Final Result Performing Organization Address City/[facility] [place]/[facility] Co de Phone Number [facility] [place] [address] * eGFR (10/14/2024 9:50 AM CDT) Pathologist [facility] eGFR 62 >=60 mL/min/1. 73 m2 Comment: [...] interpretive data was last reviewed 2020. Blood 10/14/2024 9:50 AM CDT 10/14/2024 9:59 AM CDT Suman Canales MD LAB BLOOD ORDER CRISTEL Final Result Performing Organization Address City/[facility] [place]/ZIP Co de Phone Number TA KENDRICK [facility] [place] [address] * (ABNORMAL) Immunoglobulin free light chains (10/14/2024 9:50 AM CDT) Pathologist [facility] [place]/Lambda ratio [facility] 0.06(L) 0.26 - 1.65 Comment: Interpretive Data The Binding Site FreeLite assay procedure was used. Results from different manufacturers or methods may not be comparable. Serial testing should be performed using the same methods and instrumentation. Current Interpretive Data was last revised on 2023. [place] free light chain H 0.22(L) 0.33 - 1.94 mg/dL TA [facility] Comment: Interpretive Data The Binding Site FreeLite assay procedure was used. Results from different manufacturers or methods may not be comparable. Serial testing should be performed using the same methods and instrumentation. Current Interpretive Data was last revised on 2023. Lambda free light chain [facility] 3.83(H) 0.57 - 2.63 mg/dL [facility] Comment: Interpretive Data The Binding Site FreeLite assay procedure was used. Results from different manufacturers or methods may not be comparable. Serial testing should be performed using the same methods and instrumentation. Current Interpretive Data was last revised on 2023. Blood 10/14/2024 9:50 AM CDT 10/14/2024 12:34 PM CDT Suman Canales MD LAB BLOOD ORDER CRISTEL Final Result [facility] Department of Laboratories [place], [place] [id number] * (ABNORMAL) Protein electrophoresis with reflex, serum with interpretation (10/14/2024 9:50 AM CDT) Protein, sr 6.1(L) 6.2 - 8.2 g/dL Albumin 4.1 3.2 - 5.0 g/dL [facility] Alpha-1 globulin 0.2 0.2 - 0.4 g/dL [facility] Alpha-2 globulin 0.8 0.5 - 1.0 g/dL [facility] Beta-1 globulin 0.4 0.3 - 0.6 g/dL [facility] Beta-2 globulin 0.2 0.2 - 0.6 g/dL [facility] Gamma globulin 0.3(L) 0.5 - 1.7 g/dL [facility] SPEP interp Please see comment TA KENDRICK Comment: Abnormal restricted peak in gamma region Quantity of restricted peak too low to quantify accurately Decreased gamma globulins Electrophoretic pattern appears similar to previous sample 09/17/2024 See immunotyping for further information Reviewed and signed by Tk Murcia MD, PhD 10/15/2024 Blood 10/14/2024 9:50 AM CDT 10/14/2024 12:34 PM CDT Suman Canales MD LAB BLOOD ORDER CRISTEL Final Result Performing Organization Address City/[facility] [place]/[facility] Co de Phone Number [facility] [place] [address] * Phosphorus (10/14/2024 9:50 AM CDT) [facility] Phosphorus, pl 2.6 2.3 - 4.5 mg/dL Blood 10/14/2024 9:50 AM CDT 10/14/2024 9:59 AM CDT Suman Canales MD LAB BLOOD ORDER CRISTEL Final Result Performing Organization Address City/[facility] [place]/[facility] de Phone Number [facility] [place] [address] * Lactate dehydrogenase (LD) (10/14/2024 9:50 AM CDT) [facility] Lactate dehydrogenase (LDH) 198 100 - 250 Units/L Blood 10/14/2024 9:50 AM CDT 10/14/2024 9:59 AM CDT Suman Canales MD LAB BLOOD ORDER CRISTEL Final Result Performing Organization Address City/[facility] [place]/[facility] Co de Phone Number [facility] [place] [address] * IgA (10/14/2024 9:50 AM CDT) [facility] Immunoglobulin A 91 70 - 400 mg/dL Blood 10/14/2024 9:50 AM CDT 10/14/2024 10:25 AM CDT Suman Canales MD LAB BLOOD ORDER CRISTEL Final Result Performing Organization Address [facility] [place]/[facility] Co de Phone Number [facility] [place] [address] * (ABNORMAL) IgM (10/14/2024 9:50 AM CDT) [facility] Immunoglobulin M <25(L) 40 - 230 mg/dL Blood 10/14/2024 9:50 AM CDT 10/14/2024 10:25 AM CDT Suman Canales MD LAB BLOOD ORDER CRISTEL Final Result Performing Organization Address [facility] [place]/[facility] de Phone Number [facility] [place] [address] * (ABNORMAL) IgG (10/14/2024 9:50 AM CDT) [facility] Immunoglobulin G <300(L) 700 - 1,600 mg/dL Blood 10/14/2024 9:50 AM CDT 10/14/2024 10:25 AM CDT Suman Canales MD LAB BLOOD ORDER CRISTEL Final Result Performing Organization Address City/[facility] [place]/[facility] [place] [address] * (ABNORMAL) Comprehensive metabolic panel (10/14/2024 9:50 AM CDT) [facility] Sodium 141 135 - 145 mmol/L Potassium, pl 4.8 3.3 - 4.9 mmol/L [facility] Chloride 105 97 - 110 mmol/L [facility] CO2 27 22 - 32 mmol/L [facility] Anion gap 9 2 - 15 mmol/L [facility] BUN 12 6 - 25 mg/dL [facility] Creatinine 0.92 0.60 - 1.10 mg/dL [facility] Glucose 109 70 - 199 mg/dL [facility] Comment: Interpretive Data Fasting glucose >/= 126 [...] interpretive data was last revised 2022. Calcium 9.5 8.5 - 10.3 mg/dL [facility] Bilirubin, total 0.2 0.1 - 1.2 mg/dL [facility] Protein, pl 6.2(L) 6.5 - 8.5 g/dL [facility] Albumin 4.3 3.5 - 5.0 g/dL [facility] Alk phos 62 40 - 130 Units/L [facility] ALT 12 7 - 45 Units/L [facility] AST 21 10 - 45 Units/L [facility] Blood 10/14/2024 9:50 AM CDT 10/14/2024 9:59 AM CDT Suman Canales MD LAB BLOOD ORDER CRISTEL Final Result [facility] Department [place] [address] from Last 3 Months Insurance MEDICARE BLUE [employer] MEDICARE SUPPLEMENT MEDICARE [facility] MEDICARE MEDICARE [facility] MEDICARE [facility] MEDICARE SUPPLEMENT Advance Directives For more information, please contact: [phone] * Full Code (Latest Code Status on [...] 11:50 PM 01/19/2023 9:49 PM Care Teams Slipcover Cutter Relationship Specialty Start Date End Date Low Alvarez MD PCP - General Internal Medicine 10/22/19 Trae Thompson MD Surgeon Colon and Rectal Surgery 06/25/19 Onofre James MD PhD Consulting Physician Gastroenterology 06/25/19 Brown Handley MD Physicist Acoustics Gastroenterology 12/10/19 Juan Diego Etienne MD Referring Physician Cardiology 01/04/22 Suman Lackey MD [address] [facility] [address] [employer], , [place] [address] Medical Oncologist/Pawn Shop Keeper Hematology and Oncology 12/19/24
[2025-01-07 13:27] LABS: Alanine Aminotransferase 18 U/L (6-35); Albumin Level 4.2 g/dL (3.5-5.1); Alkaline Phosphatase 58 U/L (38-126); Anion Gap 7 mmol/L (4-12); Aspartate Amino Transferase 86 U/L (14-36); Bilirubin,Total 0.5 mg/dL (0.2-1.3); Blood Urea Nitrogen 24 mg/dL (7-17); Calcium 9.5 mg/dL (8.4-10.2); Carbon Dioxide 26 mmol/L (22-30); Chloride 102 mmol/L (98-107); Cholesterol 115 mg/dL (0-200); Estimated Glomerular Filt Rate 57; Glucose 123 mg/dL (65-110); HDL Direct 51 mg/dL; Potassium 5.1 mmol/L (3.4-5.0); Sodium 135 mmol/L (137-145); Total Protein 6.6 g/dL (6.3-8.2); Triglycerides 72 mg/dL (<150)
[2025-01-07 13:32] LABS: Free T4 Free Thyroxine 2.11 ng/dL (0.78-2.19)
[2025-01-07 14:02] LABS: Hemoglobin A1C 5.2 % (<5.7)
[2025-01-07 14:03] LABS: Thyroid Stimulating Hormone 0.285 uIU/mL (0.465-4.680)
== END 2025-01-07 12:08 | disposition home or self-care (01) ==
PROVIDERS: PCP Internal Medicine; Visit Provider Internal Medicine
DX: E78.2 Mixed hyperlipidemia (principal); I10 Essential (primary) hypertension; E03.9 Hypothyroidism, unspecified; Z13.29 Encounter for screening for other suspected endocrine disorder; Z79.899 Other long term (current) drug therapy
CPT/HCPCS: 36415; 36591; 80053; 80061; 82172; 83036; 84439; 84443; 85025